=== PATIENT | female | born 1940 | race Caucasian/White ===

== ENCOUNTER 2021-08-21 21:34 | Emergency (ER) | payer MEDICARE, SELFPAY ==
--- NOTE | ~2021-08-21 | XR_ITS ---
EXAMINATION: XR KNEE, RIGHT CLINICAL INFORMATION: Atraumatic pain COMPARISON: None TECHNIQUE: Two views of the right knee. FINDINGS: Mild joint narrowing of the medial femoral tibial joint with small bone spur of the medial femoral condyle. No bone erosion. No soft tissue calcification. Patellofemoral joints normal. There is no joint effusion. No focal bone lesions. No fracture or dislocation. XR/XR knee RT 2V IMPRESSION: Mild degenerative change of the medial femoral tibial joint.
[2021-08-21 22:06] VITALS: BP 206/77; PULSE 84; RESP 18; TEMP 36.6; O2SAT 100; BMI 29.4
[2021-08-21 22:58] LABS: MANUAL DIFF FLAG NO
[2021-08-21 22:59] LABS: Basophils Absolute Auto 0.1 X10*3/uL (0.0-0.2); Basophils Percent Auto 0.7 % (0-2); Eosinophils Absolute Auto 0.3 X10*3/uL (0.0-0.4); Eosinophils Percent Auto 2.2 % (0-4); Hematocrit 36.6 % (37.0-47.0); Hemoglobin 11.9 g/dl (12.0-16.0); Imm Gran Abs Auto 0.03 X10*3/uL (0.00-0.03); Imm Gran Pct Auto 0.3 % (0.0-0.4); Lymphocytes Absolute Auto 2.4 X10*3/uL (1.2-4.9); Mean Corpuscular HGB Conc 32.5 g/dl (31.0-35.0); Mean Corpuscular Hemoglobin 29.7 pg (27.0-33.0); Mean Corpuscular Volume 91.3 fL (80.0-98.0); Mean Platelet Volume 9.9 fL (9.4-12.3); Monocytes Absolute Auto 0.9 X10*3/uL (0.1-1.2); Monocytes Percent Auto 7.9 % (2-11); Neutrophils Absolute Auto 8.2 x10*3/uL (2.0-8.3); Neutrophils Percent Auto 68.9 % (45-73); Platelet Count 277 X10*3/uL (160-400); Red Blood Count 4.01 X10*6/uL (4.20-5.50); Red Cell Distribution Width 14.3 % (11.0-16.0); White Blood Count 11.8 X10*3/uL (4.8-10.8)
[2021-08-21 23:07] LABS: D Dimer 286 NG/ML
[2021-08-21 23:13] LABS: Anion Gap 16 (12-20); Blood Urea Nitrogen 18 mg/dL (9-16); Calcium 9.1 mg/dL (8.4-10.2); Carbon Dioxide 23 mmol/L (22-29); Chloride 107 mmol/L (96-108); Creatinine Clr Calc Pharmacy 35.1; Estimated Glomerular Filt Rate 42; Glucose Random 142 mg/dL (60-115); Potassium 3.7 mmol/L (3.3-5.1); Sodium 142 mmol/L (135-145)
[2021-08-21 23:20] VITALS: BP 193/75; PULSE 84; RESP 15; O2SAT 99
--- NOTE | 2021-08-21 23:21 | ED_ITS ---
HPI - Extremity Problem General Chief complaint: Extremity Problem Stated complaint: rt leg unable to walk Time Seen by Provider: 08/21/21 22:30 Source: patient Mode of arrival: ambulatory Limitations: no limitations History of Present Illness HPI Narrative: Patient with no prior history of significant knee problems pain in the right leg from knee down unable to be bear weight no significant swelling of the ankles no risk factor for DVT, patient does not remember any twisting injury but patient was working all day today and was very active. Related Data Previous Rx's Medication Instructions Recorded tramadol 50 mg tablet 50 mg PO Q6H PRN #20 tab 08/22/21 walker (Ultra-Light Rollator) #1 ea 08/22/21 Allergies Allergy/AdvReac Type Severity Reaction Status Date / Time Penicillins AdvReac Hives Verified 08/21/21 22:15 terbinafine [From Lamisil] AdvReac Hives Verified 08/21/21 22:17 Review of Systems Review of Systems: Yes all other systems are reviewed and are negative PMFSH Past Medical History Medical History Diarrhea Hypertension Social History Social History Patient Tobacco Use Status: Never used Tobacco Use of substances other than those prescribed or required for medical reasons: No Advance Directives: No Advance Directives Information Provided: Yes Physical Exam Vital Signs: Vital Signs: Last Vital Signs Temp 97.8 F 08/21/21 22:06 Pulse 84 08/21/21 23:20 Resp 15 08/21/21 23:20 BP 193/75 H 08/21/21 23:20 Pulse Ox 99 08/21/21 23:20 Body Mass Index 29.4 Const: General: comfortable and no acute distress Orientation/consciousness: patient oriented x3 HENMT: Head: Yes normocephalic and Yes atraumatic Resp: Effort & Inspection: normal respiratory effort Auscultation: clear to auscultation bilaterally Cardio: Palpation: normal PMI Rate: regular rate Rhythm: regular rhythm Heart sounds: S1 normal heart sound present and S2 normal heart sound present GI: Inspection: Yes normal to inspection Palpation (GI): Soft to palpation and nontender : General: Yes no CVA tenderness Back/Spine/Pelvis: Back: no CVA tenderness Thoracic/Lumbar Spine: No thoracic spinal tenderness and No lumbar spinal tenderness Neuro: General: patient oriented x3 and no focal motor deficits Extrem: General: Yes full ROM, Yes no joint enlargement, Yes no pedal edema and Yes no calf tenderness Knee images: 1. Diffuse tenderness of the right knee no joint effusion macro any signs and anterior drawer sign negative slight popliteal fullness MDM - Extremity (Nontraumatic) MDM Narrative Medical decision making narrative: Patient with atraumatic right knee pain clinically low risk for DVT no calf tenderness homams sign is negative x-ray showed narrowing of medial femoral tibial space likely medial meniscal strain. Will apply knee immobilizer. Patient has slightly elevated D-dimer advised to get venous Doppler done tomorrow as outpatient Lab Data Attestation: I reviewed the patient's lab results. Result diagrams: 08/21/21 22:54 08/21/21 22:54 Labs: Lab Results 08/21/21 08/21/21 08/21/21 Range/Units 22:54 22:54 22:54 WBC 11.8 H (4.8-10.8) X10*3/uL RBC 4.01 L (4.20-5.50) X10*6/uL Hgb 11.9 L (12.0-16.0) g/dl Hct 36.6 L (37.0-47.0) % MCV 91.3 (80.0-98.0) fL MCH 29.7 (27.0-33.0) pg MCHC 32.5 (31.0-35.0) g/dl RDW 14.3 (11.0-16.0) % Plt Count 277 (160-400) X10*3/uL MPV 9.9 (9.4-12.3) fL Immature Gran % (Auto) 0.3 (0.0-0.4) % Neut % (Auto) 68.9 (45-73) % Lymph % (Auto) 20.0 (20-40) % [place] % (Auto) 7.9 (2-11) % Eos % (Auto) 2.2 (0-4) % Baso % (Auto) 0.7 (0-2) % Lymph # (Auto) 2.4 (1.2-4.9) X10*3/uL [place] # (Auto) 0.9 (0.1-1.2) X10*3/uL Eos # (Auto) 0.3 (0.0-0.4) X10*3/uL Baso # (Auto) 0.1 (0.0-0.2) X10*3/uL Abs Immat Gran (auto) 0.03 (0.00-0.03) X10*3/uL Absolute Neuts (auto) 8.2 (2.0-8.3) x10*3/uL Absolute Nucleated RBC 0.000 (0.0-0.012) X10*3/uL Nucleated RBC % (auto) 0.0 (0.0-0.2) /100WBC D-Dimer 286 NG/ML Sodium 142 (135-145) mmol/L Potassium 3.7 (3.3-5.1) mmol/L Chloride 107 (96-108) mmol/L Carbon Dioxide 23 (22-29) mmol/L Anion Gap 16 (12-20) BUN 18 H (9-16) mg/dL Creatinine 1.22 (0.5-1.4) mg/dL Estim Creat Clear Calc 35.1 Estimated GFR 42 Random Glucose 142 H (60-115) mg/dL Calcium 9.1 (8.4-10.2) mg/dL Discharge Plan Discharge Clinical Impression: Strain of knee Qualifiers: Encounter type: initial encounter Laterality: right Qualified Code(s): S86.911A - Strain of unspecified muscle(s) and tendon(s) at lower leg level, right leg, initial encounter Patient Disposition: Home, Self-Care Instructions: Knee Pain (ED) Additional Instructions: With knee immobilizer for support Use crutches/walker for ambulation Schedule for venous Doppler in the morning for ruling out blood clot in the leg as advised Pain medication as advised Follow with PCP for further evaluation including MRI of the right knee Prescriptions: New tramadol 50 mg tablet 50 mg PO Q6H PRN (Reason: pain) Qty: 20 RF: 0 (DME) Ultra-Light Rollator Misc See Rx Instructions .Route Qty: 1 RF: 0
[2021-08-21] MEDS: traMADoL HCL 50 MG TABLET PO (23:56)
== END 2021-08-22 01:07 | disposition home or self-care (01) ==
PROVIDERS: Emergency Provider Internal Medicine; PCP Internal Medicine
DX: S86.911A Strain of unspecified muscle(s) and tendon(s) at lower leg level, right leg, initial encounter (principal); X58.XXXA Exposure to other specified factors, initial encounter; M79.661 Pain in right lower leg; Y93.9 Activity, unspecified; Y92.9 Unspecified place or not applicable; Y99.9 Unspecified external cause status
CPT/HCPCS: 36415; 73560; 80048; 85025; 85379; 99284

== ENCOUNTER 2021-08-22 13:04 | Outpatient (REF) | payer MEDICARE, SELFPAY ==
--- NOTE | ~2021-08-22 | US_ITS ---
EXAMINATION: US VENOUS ULTRASOUND WITH DOPPLER LOWER EXTREMITY, RIGHT CLINICAL INFORMATION: Right leg pain COMPARISON: None TECHNIQUE: Ultrasound of the deep veins is performed from the hip to the calf with compression sonography and color and pulse Doppler assessment. Spectral analysis with color-flow imaging is performed. FINDINGS: There is normal venous compression and respiratory variation and augmented flow. The visualized common femoral vein, superficial femoral vein, profunda femoral vein, popliteal vein, and the trifurcation region shows no evidence of deep venous thrombosis. There is no significant popliteal fossa cyst. If the patient's symptoms persist, followup ultrasound in 5 days 7 days might be of value to exclude proximal propagation from a non-visualized calf vein. US/US venous duplex LE RT IMPRESSION: No DVT demonstrated in the right lower extremity.
== END 2021-08-22 13:05 | disposition home or self-care (01) ==
LOC: HO.US 13:04
PROVIDERS: PCP Internal Medicine; Visit Provider Internal Medicine
DX: M79.604 Pain in right leg (principal)
CPT/HCPCS: 36415; 73560; 80048; 85025; 85379; 93971; 99284

== ENCOUNTER 2023-06-04 13:00 | Outpatient (RCR) | payer MEDICARE, SELFPAY | END 2023-06-04 15:51 | disposition home or self-care (01) | LOC: HO.PT 13:00 | PROVIDERS: PCP Internal Medicine; Visit Provider Podiatrist | DX: R26.81 Unsteadiness on feet (principal); Z91.81 History of falling | CPT/HCPCS: 97110; 97112; 97162; 97530 ==

== ENCOUNTER 2023-08-10 09:33 | Emergency (ER) | payer MEDICARE, SELFPAY ==
--- NOTE | ~2023-08-10 | CT_ITS ---
EXAMINATION: CT angio head neck stroke CLINICAL INFORMATION: Stroke alert. Right-sided weakness. COMPARISON: CT head 08/10/2023. TECHNIQUE: Expanding Machine Operator images were obtained. A CT angiogram of the head and neck was performed in the arterial phase after the intravenous administration of 70 mL Omnipaque 350. Pre and delayed postcontrast images of the head were also obtained. 3D images were processed on an independent workstation under concurrent supervision. Arterial stenoses are measured in accordance with NASCET criteria or similar method if applicable. This CT examination was performed using dose optimization techniques as appropriate, including one or more of the following: Automated exposure control, iterative reconstruction, and adjustment of technique factors (mA and/or kVp) according to patient size (this includes techniques or standardized protocols for targeted exams where dose is matched to indication/reason for exam). Fleischner Society criteria for the followup of incidental pulmonary nodules was implemented if appropriate. Total exam dose-length product 1441 mGy-cm FINDINGS: Head: There is loss of mcclure-white matter differentiation within left parietal lobe consistent with an acute infarct. In addition this finding there are numerous foci of hypoattenuation primarily involving the perivertebral white matter, basal ganglia, and thalami that most likely represent a chronic manifestation of small vessel ischemia. No acute hemorrhage or abnormal extra-axial collection. Postcontrast images reveal no abnormal intracranial mass or enhancement. The calvarium and skull base are intact. Mastoid air cells and middle ear cavities are well-aerated. No active paranasal sinus disease. CT angiogram neck: The aortic arch apex is normal. Origins of the major aortic branches are widely patent. Common carotid arteries are normal. A small amount of partially calcified plaque involves the carotid bifurcations. No stenosis of the extracranial internal carotid arteries. 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 The cervical segments of vertebral arteries are otherwise unremarkable. CT angiogram head: Atheromatous calcification causes mild irregular narrowing of the cavernous segments of both internal carotid arteries. The intradural vertebral artery segments and basilar artery are patent. There is an occlusive thrombus within the M1 segment of left middle cerebral artery and relatively poor contrast filling the distal branches of left middle cerebral artery complex. Anterior, middle, and posterior cerebral complexes are otherwise unremarkable. Other: Soft tissues of the neck including the thyroid gland are normal. No pathologically enlarged cervical lymph nodes. Pleural parenchymal scarring is visualized at the apices of both lungs. No acute osseous finding. Specifically no worrisome lytic or blastic osseous lesion. CT/CT angio head neck stroke IMPRESSION: There is an occlusive thrombus within the M1 segment of the left middle cerebral artery and early changes of an acute infarct within the left parietal lobe. In addition this finding there are numerous chronic small vessel ischemic changes within the periventricular white matter, basal ganglia, and thalami. No acute intracranial hemorrhage. No abnormal intracranial mass or enhancement. 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 No stenosis of the cervical carotid or vertebral arteries. This critical result was discussed with Mayur Maradiaga at 10:41 AM on 08/10/2023 and it was ascertained that the content and urgency of the report was understood at the time of direct communication.
--- NOTE | ~2023-08-10 | CT_ITS ---
EXAMINATION: CT HEAD WITHOUT CONTRAST (STROKE PROTOCOL) CLINICAL INFORMATION: Stroke protocol. Right-sided weakness COMPARISON: None available. TECHNIQUE: Contiguous axial imaging was performed from the skull base to vertex without intravenous administration of contrast. This CT examination was performed using dose optimization techniques as appropriate, variously including the following: *Automated exposure control *Adjustment of mA and/or kV according to patient size (this includes techniques or standardized protocols for targeted exams where dose is matched to indication/reason for exam; i.e. extremities or head) *Use of iterative reconstruction technique DLP: 688 mGy-cm FINDINGS: The exam is limited secondary to patient motion. There is no acute intra-axial, extra-axial bleed, masses or midline shift. There is no acute infarction in evolution. There is a hypodensity in the left frontoparietal region with a prominent central sulcus likely old stroke or infarction. There is no edema. The lateral ventricles are symmetrical but enlarged with mild periventricular hypodensity in both cerebral hemispheres, likely small vessel disease.. Bone windows reveal no calvarial abnormality. No scalp soft tissue abnormality seen. There is a small polyp or retention cyst left maxillary and right sphenoid sinus. CT/CT head for stroke IMPRESSION: The exam is limited secondary to patient motion. No acute intracranial process seen. Prominent left central sulcus with adjacent hypodensity along the left frontoparietal region likely old infarction. There are no previous exam available. Mild cerebral volume loss with chronic small vessel ischemic changes in the periventricular white matter. Critical results were immediately called to Dr. Nicholas Maradiaga in the ER at 9:57 AM. It was ascertained that the content and urgency of the report was understood at the time of direct communication.
--- NOTE | 2023-08-10 09:38 | ECG_ITS ---
Test Reason : STROKE Blood Pressure : / mmHG Vent. Rate : 062 BPM Atrial Rate : 000 BPM P-R Int : 000 ms QRS Dur : 092 ms QT Int : 456 ms P-R-T Axes : 000 036 065 degrees QTc Int : 462 ms Atrial fibrillation Nonspecific T wave abnormality Abnormal ECG No previous ECGs available Referred By: Nicholas Maradiaga Electronically Signed By:DEVON CHAMBERLAIN MD
--- NOTE | 2023-08-10 09:42 | ED_ITS ---
HPI - Weakness General Chief complaint: Stroke Stated complaint: STROKE ALERT Time Seen by Provider: 08/10/23 09:38 Source: patient and EMS Mode of arrival: EMS Limitations: other (dysarthria) History of Present Illness HPI Narrative: Patient found with decreased responsiveness on the toilet, right sided weakness and dysarthria 90 minutes ago Complaint: focal weakness Onset (ago): minute(s) (90) Duration: constant Location: RUE, RLE and face (right) Severity: severe Related Data Previous Rx's Medication Instructions Recorded tramadol 50 mg tablet 50 mg PO Q6H PRN pain #20 tabs 08/22/21 walker (Ultra-Light Rollator misc) #1 ea 08/22/21 Allergies Allergy/AdvReac Type Severity Reaction Status Date / Time Penicillins AdvReac Hives Verified 08/21/21 22:15 terbinafine [From Lamisil] AdvReac Hives Verified 08/21/21 22:17 Review of Systems 2 Review of Systems: Yes Unobtainable due to mental status [facility] Past Medical History Medical History Diarrhea Hypertension Social History Social History Alcohol intake: current Alcohol intake frequency: holidays/special occasions only Patient Tobacco Use Status: Never used Tobacco Smoked in Last 30 Days: No Use of substances other than those prescribed or required for medical reasons: No Advance Directives: No Advance Directives Information Provided: Yes Physical Exam 2 Vital Signs: Vital Signs: Last Vital Signs Pulse 63 08/10/23 10:31 Resp 18 08/10/23 10:31 BP 158/68 H 08/10/23 10:31 Pulse Ox 98 08/10/23 10:31 O2 Del Method Room Air 08/10/23 10:31 BMI result Body Mass Index 25.6 Const: Other: Ill appearing right sided weakness Nutritional Appearance: obese Orientation/consciousness: oriented to person and patient oriented x3 Limitations: other limitations (dysarthria) HEENT: Head: Yes normal to inspection Ears: external ears normal General nose exam: Normal external nose present Mouth: Normal oral and palatal mucosa present and oropharynx normal Throat: Yes posterior oropharynx normal Eyes: General: appearance normal, both eyes and all related structures Neck: Other: supple Neck: Yes normal visual inspection Chest: Chest palpation & inspection: normal inspection of the chest Resp: Auscultation: clear to auscultation bilaterally Cardio: Jugular venous distension: no JVD GI: Inspection: Yes normal to inspection Palpation (GI): Soft to palpation, nontender and No hepatosplenomegaly present Auscultation: normal bowel sounds : General: Yes no CVA tenderness Back/Spine/Pelvis: Back: no CVA tenderness Skin: General skin exam: no rashes or lesions noted Neuro: Other: right facial, right arm, right leg weakness General: oriented to person and patient oriented x3 Extrem: General: Yes normal to inspection Psych: Appearance: grossly normal NIH Stroke Scale Internal: Initial- Upon Arrival Level of Consciousness: Alert Level of Consciousness Questions: Answers both questions correctly Level of Consciousness Commands: Performs both tasks correctly Best Gaze: Partial gaze palsy (to the left) Facial Palsy: Partial paralysis Motor Arm (Right): No effort against gravity Motor Leg (Right): No effort against gravity Limb Ataxia: Absent Sensory: Normal Best Language: No aphasia Dysarthia: Severe dysarthria Extinction and Inattention: Visual, tactile, auditory, spatial, or personal inattention Course Reevaluation(s) Reevaluation #1: NIH stroke scale 15 Time: 09:53 Reevaluation #2: discussed risk and benefits of tpa at the bedside with both jerman Time: 10:15 Reevaluation #3: Large clot at M1 of left MCA Time: 10:45 Additional Reevaluation(s): I spent 60 minutes of critical care, with interventions, assessments, speaking to patient, consultants, and family. Medications Administered Discontinued Medications Generic Name Dose Route Start Last Admin Trade Name Freq PRN Reason Stop Dose Admin Iohexol 70 ml 08/10/23 10:16 08/10/23 10:16 Iohexol 350 Mg/Ml 100 Ml Infus..Btl IV 08/10/23 10:17 70 ml ONCE ONE Administration Medical Decision Making Differential Diagnosis Differential Diagnoses: The differential diagnosis associated with the presentation includes (stroke, cerebral bleed, brain mass) Admission/Observation Consideration of admission/observation: Escalation of care including admission/observation considered (upon arrival patient considered for admission) Consult Healthcare Provider Management of the patient was discussed with: [employer] Director (stroke team) Lab Data 08/10/23 10:20 08/10/23 10:20 Labs: Lab Results 08/10/23 08/10/23 Range/Units 09:48 10:20 WBC 9.1 (4.8-10.8) X10*3/uL RBC 4.23 (4.20-5.50) X10*6/uL Hgb 13.1 (12.0-16.0) g/dl Hct 39.3 (37.0-47.0) % MCV 92.9 (80.0-98.0) fL MCH 31.0 (27.0-33.0) pg MCHC 33.3 (31.0-35.0) g/dl RDW 13.1 (11.0-16.0) % Plt Count 256 (160-400) X10*3/uL MPV 9.9 (9.4-12.3) fL Immature Gran % (Auto) 0.2 (0.0-0.4) % Neut % (Auto) 66.4 (45-73) % Lymph % (Auto) 22.9 (20-40) % [place] % (Auto) 6.4 (2-11) % Eos % (Auto) 3.3 (0-4) % Baso % (Auto) 0.8 (0-2) % Lymph # (Auto) 2.1 (1.2-4.9) X10*3/uL [place] # (Auto) 0.6 (0.1-1.2) X10*3/uL Eos # (Auto) 0.3 (0.0-0.4) X10*3/uL Baso # (Auto) 0.1 (0.0-0.2) X10*3/uL Abs Immat Gran (auto) 0.02 (0.00-0.03) X10*3/uL Absolute Neuts (auto) 6.1 (2.0-8.3) x10*3/uL Absolute Nucleated RBC 0.000 (0.0-0.012) X10*3/uL Nucleated RBC % (auto) 0.0 (0.0-0.2) /100WBC Hold Purple Top SEE NOTE PT 11.2 (11.1-13.3) SEC Whole Blood PT 12.7 (11.1-13.5) sec INR 0.9 (0.9-1.1) Whole Blood INR 1.1 (0.9-1.1) APTT 28.3 (26.0-36.4) SEC Hold Blue Top SEE NOTE Sodium 141 (135-145) mmol/L Potassium 3.5 (3.3-5.1) mmol/L Chloride 109 H (96-108) mmol/L Carbon Dioxide 22 (22-29) mmol/L Anion Gap 14 (12-20) BUN 17 H (9-16) mg/dL Creatinine 0.78 (0.5-1.4) mg/dL Estim Creat Clear Calc 56.0 Estimated GFR > 60 POC Glucose 113 (60-115) mg/dL Random Glucose 118 H (60-115) mg/dL Calcium 9.4 (8.4-10.2) mg/dL Total Creatine Kinase 41 (26-140) U/L Troponin I High Sens < 2.7 (<3.5-17.0) ng/L Independent Interpretation I performed an independent interpretation of an: EKG (atrial fib rate of [address] or twave changes) and CT Scan (no bleed or mass seen) Radiology Impression Discussion of test interpretation with radiology: I have reviewed the radiologist's reading. (there is a large clot of the left MCA) Independent Historian Clinical information obtained from an independent historian. History obtained from or confirmed by: Other (sons) Tests considered The following testing was considered but not selected: MRI of brain considered Chronic Conditions Patient?s care impacted by: Hypertension Discharge Plan Discharge Clinical Impression: Cerebrovascular accident Patient Disposition: [facility] Transfer Details: [facility] Prescriptions: No Action tramadol 50 mg tablet 50 mg PO Q6H PRN (Reason: pain) Qty: 20 0RF (DME) Ultra-Light Rollator Misc See Rx Instructions .Route Qty: 1 0RF Rx Instructions: As directed
[2023-08-10 09:51] LABS: Prothrombin Time Whole Bld POC 12.7 sec (11.1-13.5); ~PT, ~INR - Anti Coag Clinic 1.1 (0.9-1.1)
[2023-08-10 09:52] LABS: Glucose, Whole Blood 113 mg/dL (60-115)
[2023-08-10 09:58] VITALS: BP 142/57; PULSE 76; RESP 20; O2SAT 100; BMI 25.6
[2023-08-10] MEDS: iohexoL 350 MG/ML 100 ML INFUS..BTL 70 ML IV (10:16)
--- NOTE | 2023-08-10 10:23 | PC.NURSE ---
pt BIBA from home with R sided weakness, facial droop and left sided gaze. last known well was approx 8:05 this morning when pt was found unresponsive in her bathroom by her . pt incontinent of urine. EMS reported new A.fib - unknown if this information was determined en rout or a new diagnosis prior to todays events. pt weight at 76.3 kg by bed weight in ER. bolus of 6.9 mL Alteplase administered via 20G in L wrist at 10:14. waste dose 31.2 mL infusion started at 10:22 dose of 61.9 mL/hr. second IV line established in the R forearm, 20G. blood sent to lab. pts sons at bedside.
[2023-08-10 10:27] LABS: Basophils Absolute Auto 0.1 X10*3/uL (0.0-0.2); Basophils Percent Auto 0.8 % (0-2); Eosinophils Absolute Auto 0.3 X10*3/uL (0.0-0.4); Eosinophils Percent Auto 3.3 % (0-4); Hematocrit 39.3 % (37.0-47.0); Hemoglobin 13.1 g/dl (12.0-16.0); Imm Gran Abs Auto 0.02 X10*3/uL (0.00-0.03); Imm Gran Pct Auto 0.2 % (0.0-0.4); Lymphocytes Absolute Auto 2.1 X10*3/uL (1.2-4.9); Lymphocytes Percent Auto 22.9 % (20-40); MANUAL DIFF FLAG NO; Mean Corpuscular HGB Conc 33.3 g/dl (31.0-35.0); Mean Corpuscular Volume 92.9 fL (80.0-98.0); Mean Platelet Volume 9.9 fL (9.4-12.3); Monocytes Absolute Auto 0.6 X10*3/uL (0.1-1.2); Monocytes Percent Auto 6.4 % (2-11); Neutrophils Absolute Auto 6.1 x10*3/uL (2.0-8.3); Neutrophils Percent Auto 66.4 % (45-73); Platelet Count 256 X10*3/uL (160-400); Red Blood Count 4.23 X10*6/uL (4.20-5.50); Red Cell Distribution Width 13.1 % (11.0-16.0); White Blood Count 9.1 X10*3/uL (4.8-10.8)
[2023-08-10 10:31] VITALS: BP 158/68; PULSE 63; RESP 18; O2SAT 98
[2023-08-10 10:35] LABS: INTERNATIONAL NORM RATIO 0.9 (0.9-1.1); Prothrombin Time 11.2 SEC (11.1-13.3)
[2023-08-10 10:37] LABS: Partial Thromboplastin Time 28.3 SEC (26.0-36.4)
[2023-08-10 10:38] LABS: Stroke Lab Use COMPLETE
[2023-08-10 10:40] LABS: Anion Gap 14 (12-20); Blood Urea Nitrogen 17 mg/dL (9-16); Calcium 9.4 mg/dL (8.4-10.2); Carbon Dioxide 22 mmol/L (22-29); Chloride 109 mmol/L (96-108); Estimated Glomerular Filt Rate > 60; Glucose Random 118 mg/dL (60-115); Potassium 3.5 mmol/L (3.3-5.1); Sodium 141 mmol/L (135-145)
[2023-08-10 10:50] LABS: Troponin-I High Sensitivity < 2.7 ng/L (<3.5-17.0)
[2023-08-10 10:56] VITALS: BP 144/73; PULSE 70; RESP 14; O2SAT 96
--- NOTE | 2023-08-10 11:09 | PC.NURSE ---
son Lloyd son Jacob Capo
[2023-08-10 11:10] VITALS: BP 137/68; PULSE 73; RESP 17; O2SAT 97
--- NOTE | 2023-08-10 11:10 | MHC.STROKE ---
EMS PRE-NOTIFIED STROKE ALERT 0930, LKW 0800 - 0820. [place] [facility] [place] SEEN BY PROVIDER NIHSS = 15, RIGHT HEMIPARESIS, GAZE, DROOP, DIRECT TO [facility] AND [facility]. CLARIFYING LKW WITH SON WHO LIVES WITH HER. SHE GOT UP SEVERAL TIMES DURING THE NIGHT TO GO TO THE BATHROOM, HE SPOKE TO HER AROUND 0200. SHE MANAGED TO GET UP TO THE BATHROOM AROUND 0800 AND HE FOUND HER ON THE TOILET 0820, SLOW TO RESPOND AND NOT MOVING HER RIGHT SIDE. HE CALLED 911. BP 142/57, NEW AFIB, HE 76, NO BLEED ON CT, TPA ORDERED 68.67MG, 6.7MG BOLUS GIVEN AT 1014 BY VALERIE LUNDBERG, WITNESSED BY ME. DRIP STARTED 1015. AFTER 10-20 MINUTES SLIGHTLY IMPROVING CTA RESULTS CAME BACK LEFT M1 OCCLUSION. DR ANTHONY DISCUSSED CASE WITH DR ATWOOD AT [facility]. PATIENT ACCEPTED. FILMS SENT VIA [facility]. FAILED SWALLOW SCREEN, NPO. STROKE EDUCATION PROVIDED TO FAMILY AND INFORMED EACH STEP ALONG THE WAY. THEY CONSENT TO TRANSFER TO [facility]. I EXPLAINED THE PROCESS AND WHAT THE NEXT STEP IS. THERE IS A QUESTION IF SHE HAD A NEW DIAGNSIS OF AFIB, BUT NOT ON ANY ANTICOAGULANTS. SHE IS VERY ACTIVE. STILL DRIVES, GOES TO [facility], LIVES WITH HER AND SON. HER AND HER SLEEP IN DIFFERENT ROOMS THEREFORE HE COULD NOT HELP WITH LKW. DELAY IN TPA GREATER THAN 30MIN DUE TO THE NEED FOR CLARIFICATION OF ONSET TIME. CT READING 0957, CTA READING 1041. PREPARING FOR TRANSFER, VITALS STABLE. REPORT GIVEN TO EMT'S, DIRECT TO TAXATION ACCOUNTANT FOR THROMBECTOMY. DEPARTED AT 1129. [id number] 116MIN.
[2023-08-10 11:15] VITALS: BP 131/68; PULSE 72; RESP 17; O2SAT 97
--- NOTE | 2023-08-10 11:35 | PC.NURSE ---
pt D/c via [facility] at 11:32 AM en route to [facility]
== END 2023-08-10 11:29 | disposition short-term general hospital (02) ==
PROVIDERS: Emergency Provider Emergency Medicine
DX: I63.312 Cerebral infarction due to thrombosis of left middle cerebral artery (principal); R47.01 Aphasia; R47.1 Dysarthria and anarthria; G81.91 Hemiplegia, unspecified affecting right dominant side; R29.810 Facial weakness; H53.8 Other visual disturbances; R29.715 NIHSS score 15; I10 Essential (primary) hypertension
CPT/HCPCS: 36415; 37195; 70450; 70496; 70498; 80048; 82550; 82947; 84484; 85025; 85610; 85730; 93005; 99284; 99285; J2997; Q9967

== ENCOUNTER 2023-10-01 08:26 | Outpatient (AMB) | payer MEDICARE, SELFPAY ==
--- NOTE | 2023-10-01 08:33 | A.OFFVIS_ITS ---
Intake Vital Signs 10/01/23 08:40 Weight 158 lb Pulse 77 Pulse Source Pulse Oximeter Pulse Oximetry (%) 99 Oxygen Delivery Method Room Air Intake Visit Reasons: [id number] Intake Note: Patient presents for CVA. I dont know they sent me here Allergies codeine Allergy (Unknown, Verified 10/01/23 08:41) rash Penicillins Adverse Reaction (Verified 10/01/23 08:41) Hives terbinafine [From Lamisil] Adverse Reaction (Verified 10/01/23 08:41) Hives HPI HPI Comments History of Present Illness Details Left-handed 83-yr-old female presents for neurological evaluation of: post-CVA. Pt is accompanied by her son, who helps w/ history. In late Jul 2023, pt was diagnosed with a large acute ischemic left MCA in farction after pt was found by family w/ facial droop,?right sided weakness, dysarthria, left gaze after being found on toilet?with decreased responsiveness. Pt was brought to [facility] ER. Per [facility] records, pt underwent TPA and subsequently was taken for thrombectomy that was unfortunately unsuccessful and complicated by distal cervical ICA dissection without hemodynamically significant stenosis. She was extubated on 08/11/2023 . Pt also dx'd w/ new onset?atrial fibrillation w/ CHADVASc 6 w/ planto start Eliquis and metoprolol for afib?10 days post stroke (on 08/20/23). Pt was discharged to rehab w/ residual right sided weakness requiring w/c for mobility. She completed 2 weeks of in-pt rehab at [facility], then was discharged home w/ TENANT [employer]ATIONS COORDINATOR (both VNA and private), NSG, PT, OT, [employer] Her baseline is Ind w/o device. Lives at home with her and other son, Daljit (who is a retired trauma nurse). [facility]. She is still having right-sided weakness. She needs assist w/ ADLs - dressing, showers, and meal prep. She is having some cognitive difficulties- such as following sequences, certain math problems. She still has some mild dysarthria. She is having some urinary and bowel incontinence- ? unaware vs functional. She is now able to walk w/ walker, but has difficulty getting up from a softer surface- such as a bed or sofa. She denies dysphagia, vision changes, numbness/tingling, Right sided spasms, spasticity. Work-up: 08/11/23, Head Ct w/o: IMPRESSION: Acute LEFT MCA vascular territory infarct without evidence of hemorrhagic transformation. 08/11/23, Echocardiogram: Summary The left ventricular size is normal. Left ventricular wall thickness is normal. The LV systolic function is normal . The left ventricular ejection fraction is 60-65 %. There are no regional wall motion abnormalities. Right ventricular size and systolic function appear grossly normal. The left atrium is mildly dilated. No significant valve dysfunction. Normal CVP estimate. There is no evidence of pulmonary hypertension. 08/13/23, Brain MRI w/o IMPRESSION: Large acute left MCA infarct as described above, similar to that seen on the prior CT. No associated hemorrhage. There is no hydrocephalus or midline shift. 08/11/23 04:24 Cholesterol 222 H Triglycerides 144 HDL Cholesterol 61 LDL Cholesterol 132 H Non HDL Cholestero l 161 H PFSH Medical History (Updated 10/10/23 @ 22:01 by PAIGE Glass) History of malignant melanoma History of basal cell carcinoma History of dysplastic nevus Degenerative joint disease (DJD) of hip Low back pain radiating to left lower extremity History of squamous cell carcinoma Venous insufficiency (chronic) (peripheral) Diarrhea Hypertension Surgical History (Updated 10/01/23 @ 08:48 by JERICHO Tilley) H/O breast biopsy Hx of colonoscopy Hx of cholecystectomy Hx of appendectomy Family History (Updated 10/01/23 @ 08:42 by JERICHO Tilley) Father Throat cancer Mother Kidney failure Social History (Updated 10/01/23 @ 08:43 by JERICHO Tilley) Alcohol intake: current Alcohol intake frequency: holidays/special occasions only Patient Tobacco Use Status: Never used Tobacco Physical Exam Vital Signs: Last Vital Signs Pulse 77 10/01/23 08:40 Pulse Ox 99 10/01/23 08:40 Oxygen Delivery Method Room Air 10/01/23 08:40 Const General: cooperative and no acute distress Orientation/consciousness: patient oriented x3 HEENT Head: Yes normocephalic Eyes Pupils: Equal, round and reactive pupils present Resp Effort & Inspection: normal respiratory effort and able to speak in complete sentences Neuro Other: A&O w/ mild STM lapses Very mild dysarthria Very mild RUE tone RUE MS 4/4 LUE and BLE- MS 5/5 Pronator drift- positive in RUE Stands slwoly, steady gait w/ walker General: patient oriented x3 and deep tendon reflexes 2+ bilaterally Cranial nerves: Yes Facial sensation intact/muscles of mastication intact, Yes Equal, round and reactive pupils present, Yes Normal accommodation reflex present, Yes Bilaterally intact EOM present, Yes Normal facial strength present, Yes Ability to bilaterally rotate head present and Yes Individual cranial nerve findings present (lower facial weakness) VII: abnormal, IX: abnormal (asymmetric palate elevation) and X: abnormal (asymmetric palate elevation) Deep tendon reflexes (DTR's): Right triceps reflex intensity grade: 2+, Left triceps reflex intensity grade: 2+, Rt Biceps (C5, C6): 2+, Left biceps reflex intensity grade: 2+, Right brachioradialis reflex intensity grade: 2+, Left brachioradialis reflex intensity grade: 2+, Right patellar reflex intensity grade: 2+ and Left patellar reflex intensity grade: 2+ Psych Appearance: grossly normal Affect: normal affect Attitude: cooperative Assessment & Plan Assessment & Plan (1) History of ischemic left MCA stroke: Comment: 08/10/23 Code(s): Z86.73 - Personal history of transient ischemic attack (TIA), and cerebral infarction without residual deficits (2) Right hemiparesis: Code(s): G81.91 - Hemiplegia, unspecified affecting right dominant side (3) Atrial fibrillation: Code(s): I48.91 - Unspecified atrial fibrillation (4) HLD (hyperlipidemia): Code(s): E78.5 - Hyperlipidemia, unspecified (5) Dysarthria: Code(s): R47.1 - Dysarthria and anarthria Plan Pt advised to undergo 7 day holter monitor Pt advised to undergo brain MRI w/o to assess status resolution/sttaus of left MCA ischemic infarct. Continue optimized CV risk reduction strategies- ASA, Eliquis, statin, amlodipine, losartan. Continue home services, [employer]NA[employer]ATIONS [employer]ATOR. For incontinence- Trial scheduled toileting q 2.5-3 hrs. [facility]. Future considerations: sleep study. Coding Level of Care Code New Pt Level 4 (96792) Diagnoses History of ischemic left MCA stroke Z86.73 Right hemiparesis G81.91 Atrial fibrillation I48.91 HLD (hyperlipidemia) E78.5 Dysarthria R47.1
[2023-10-01 08:40] VITALS: PULSE 77; O2SAT 99
== END 2023-10-01 09:52 | disposition home or self-care (01) ==
PROVIDERS: Visit Provider Nurse Practitioner Family
DX: I69.351 Hemiplegia and hemiparesis following cerebral infarction affecting right dominant side (principal); I48.91 Unspecified atrial fibrillation; E78.5 Hyperlipidemia, unspecified; R47.1 Dysarthria and anarthria
CPT/HCPCS: 99204

== ENCOUNTER → 2023-10-01 08:26 | Outpatient (BNVA) | payer MEDICARE, SELFPAY | PROVIDERS: Visit Provider Nurse Practitioner Family | DX: G81.91 Hemiplegia, unspecified affecting right dominant side (principal); I48.91 Unspecified atrial fibrillation; E78.5 Hyperlipidemia, unspecified; R47.1 Dysarthria and anarthria; Z86.73 Personal history of transient ischemic attack (TIA), and cerebral infarction without residual deficits | CPT/HCPCS: 99202 ==

== ENCOUNTER 2023-10-21 19:15 | Inpatient (IN) | payer MEDICARE, SELFPAY ==
[2023-10-21 19:45] VITALS: BP 189/72; PULSE 90; RESP 16; TEMP 36.3; O2SAT 97; BMI 26.4
--- NOTE | 2023-10-21 19:50 | ED.GENADULT ---
HPI - General Adult General Chief complaint: Recheck/Abnormal Lab/Rx Stated complaint: needs a potassium bag per doctor? Time Seen by Provider: 10/21/23 20:36 Source: patient, family and old records reviewed Mode of arrival: ambulatory Limitations: no limitations History of Present Illness HPI narrative: 83 yo female with PMH of dysarthria, HLD, HTN, PAF on eliquis, MCA stroke - residual R sided weakness/dysarthria who comes from home. She has had 4 loose stools a day not on diuretics. She was sent by the PCP for low K and magnesium. She notes no abdominal pain, n/v or fevers. Family tried immodium no relief. She is eating normally. She has not had this before. No travel no antibiotic use MD complaint: low k and magnesium Onset (ago): day(s) (several days agy) Location: abdomen Radiation: non-radiation Severity: mild Relieving factors: none Exacerbating factors: eating Associated symptoms: denies other symptoms Treatments prior to arrival: none Related Data Home Medications Medication Instructions Recorded Confirmed amlodipine 5 mg tablet 5 mg PO DAILY 10/01/23 10/22/23 atorvastatin 80 mg tablet 80 mg PO BEDTIME 10/01/23 10/22/23 clotrimazole 1 % topical cream 1 appl topical BID PRN Rash 10/01/23 10/22/23 hydrocortisone 2.5 % topical cream 1 appl topical BID PRN Rash 10/01/23 10/22/23 losartan 50 mg tablet 50 mg PO DAILY 10/01/23 10/22/23 [id number]-[id number]-eefpbg tablet 1 tab PO DAILY 10/01/23 10/22/23 pantoprazole 40 mg tablet,delayed 40 mg PO DAILY@0630 10/01/23 10/22/23 release trazodone 50 mg tablet 50 mg PO BEDTIME 10/01/23 10/22/23 apixaban 5 mg tablet (Eliquis) 5 mg PO BID 10/10/23 10/22/23 melatonin 3 mg tablet 6 mg PO BEDTIME PRN Sleep 10/10/23 10/22/23 metoprolol tartrate 50 mg tablet 25 mg PO BID 10/21/23 10/22/23 nystatin 100,000 unit/gram topical 1 appl topical TID PRN Rash 10/21/23 10/22/23 powder Previous Rx's Medication Instructions Recorded walker (Ultra-Light Rollator misc) #1 ea 08/22/21 Allergies Allergy/AdvReac Type Severity Reaction Status Date / Time codeine Allergy Unknown rash Verified 10/01/23 08:41 Penicillins AdvReac Hives Verified 10/01/23 08:41 terbinafine [From Lamisil] AdvReac Hives Verified 10/01/23 08:41 Review of Systems Review of Systems: Constitutional : No Weight loss, No Fever, No Chills ENT/Mouth : No sore throat, No Rhinorrhea Eyes: No Swelling, No Redness Cardiovascular : No Chest Pain, No SOB, NoEdema Respiratory : No Cough, No Sputum, No Wheezing Gastrointestinal : no Nausea, no Vomiting, positive Diarrhea, no abdominal Pain, No Hematochezia, No Melena Genitourinary : No Dysuria, No Urinary Frequency, No Hematuria, No Urgency Musculoskeletal : No joint pain, No Myalgias, No Joint Swelling Skin : No Skin Lesions, No rash Neuro : No Weakness, No Numbness, No Dizziness, No Headache Psych : No Anxiety/Panic, No Depression All other systems reviewed and are negative. [facility] Past Medical History Attestation statement: The following information was validated with the patient. Source: old records reviewed Onset Date is defined in the Problem List Problems that require an onset date and time if occurred within 24 hrs of arrival to the ED Aortic Dissection and Rupture; Neurologic impairment; Cardiopulmonary Arrest; Endotracheal Intubation; Insertion or Replacement of Mechanical Circulatory Assist Device Medical History History of malignant melanoma History of basal cell carcinoma History of dysplastic nevus Degenerative joint disease (DJD) of hip Low back pain radiating to left lower extremity History of squamous cell carcinoma Venous insufficiency (chronic) (peripheral) Diarrhea Hypertension Surgical History H/O breast biopsy Hx of colonoscopy Hx of cholecystectomy Hx of appendectomy Family History Family History Father Throat cancer Mother Kidney failure Social History Social History Alcohol intake: current Alcohol intake frequency: holidays/special occasions only Alcohol type: wine Patient Tobacco Use Status: Never used Tobacco Smoked in Last 30 Days: No Use of substances other than those prescribed or required for medical reasons: No Advance Directives: No Advance Directives Information Provided: No Nutrition Risks: No Nutritional Risk Physical Exam ED Vital Signs: Vital Signs - 24 hr 10/21/23 19:45 10/21/23 20:39 Temperature 97.4 F 97.5 F Pulse Rate 90 93 Respiratory Rate 16 19 Blood Pressure 189/72 H 165/78 H Pulse Oximetry 97 98 Oxygen Delivery Method Room Air Room Air BMI result Body Mass Index 26.4 Appearance: Alert. Oriented at baseline. No acute distress. Eyes: Pupils equal, round and reactive to light. ENT: Pharynx normal. Neck: Normal inspection. Neck supple. CVS: Normal heart rate and rhythm. Pulses normal. Respiratory: No respiratory distress. Breath sounds normal. Abdomen: Soft and nontender. Skin: Skin warm and dry. Normal skin color. Normal skin turgor. Extremities: No lower extremity edema. Neuro: Oriented at baseline, R sided hemiparesis. No sensory deficit. Course Course Course Narrative: RME; 83 yold female presents to the ED for hypomagnesemia and hypokalemia. labs results were informed to patient by [facility]. Patient has been having constant diarrhea without any abdominal pain. Labs ordered Reevaluation(s) Reevaluation #1: signed out to Dr. Flores pending CT scan but anticipate admission Medications Administered Generic Name Dose Route Start Last Admin Trade Name Freq PRN Reason Stop Dose Admin Acetaminophen 650 mg 10/21/23 23:01 10/22/23 00:07 Acetaminophen 325 Mg Tablet PO 650 mg Q6H PRN Administration Pain, Mild (Pain Scale 1-3) Apixaban 5 mg 10/22/23 09:00 10/22/23 08:38 Apixaban 5 Mg Tablet PO 5 mg BID MILI Administration Potassium Chloride/Dextrose/Sod Cl 10 meq in 1,000 mls @ 125 mls/hr 10/22/23 08:15 10/22/23 09:02 Kcl 10 Meq In 5% Dex/0.45% Sod IVCONT 125 mls/hr .Q8H MILI Administration Metoprolol Tartrate 25 mg 10/22/23 09:00 10/22/23 08:37 Metoprolol Tartrate 25 Mg Tablet PO 25 mg BID MILI Administration Protocol Multivitamins/Vitamin C 1 tab 10/22/23 09:00 10/22/23 08:38 Multivitamin Tablet PO 1 tab DAILY MILI Administration Sodium Chloride 3 ml 10/22/23 00:00 10/22/23 07:57 0.9 % Sodium Chloride Flush 3 Ml Syringe IVFLUSH Not Given QSHIFT MILI Discontinued Medications Generic Name Dose Route Start Last Admin Trade Name Freq PRN Reason Stop Dose Admin Magnesium Sulfate 2 gm in 50 mls @ 25 mls/hr 10/21/23 20:36 10/21/23 23:35 Magnesium Sulfate/H2o IV 10/21/23 22:35 Infused ONCE ONE Infusion Potassium Chloride 10 meq in 100 mls @ 100 mls/hr 10/21/23 20:45 10/22/23 08:34 Potassium Chloride/H20 IV 10/22/23 00:44 Infused Q1H MILI Infusion Sodium Chloride 1,000 mls @ 100 mls/hr 10/21/23 20:45 10/22/23 08:30 Ns IVCONT Infused .Q10H MILI Infusion Potassium Chloride 10 meq in 100 mls @ 50 mls/hr 10/22/23 04:45 10/22/23 09:05 Potassium Chloride/H20 IV 10/22/23 06:44 Infused ONCE ONE Infusion Iohexol 85 ml 10/21/23 21:54 10/21/23 21:55 Iohexol 350 Mg/Ml 100 Ml Infus..Btl IV 10/21/23 21:55 85 ml ONCE ONE Administration Potassium Chloride 40 meq 10/21/23 20:36 10/21/23 21:23 Potassium Chloride Packet 20 Meq Packet PO 10/21/23 20:37 40 meq ONCE ONE Administration Potassium Chloride 40 meq 10/21/23 23:13 10/22/23 00:00 Potassium Chloride Er 20 Meq Tab.Er.Prt PO 10/21/23 23:14 40 meq ONCE ONE Administration Potassium Chloride 40 meq 10/22/23 08:11 10/22/23 08:38 Potassium Chloride Packet 20 Meq Packet PO 10/22/23 08:12 40 meq ONCE ONE Administration Medical Decision Making Medical Decision Making MDM Narrative: 83 yo female with PMH of dysarthria, HLD, HTN, PAF on eliquis, MCA stroke - residual R sided weakness/dysarthria here with c/o diarrhea for several days no abdominal pain fevers n/v no risk factors no travel or abx use. She has low K and magnesium with some EKG changes at this time IV and oral K along with magnesium ordered. Stool studies and CT scan ordered. Planned admit. -I received sign-out from Dr. Lopez. -my interpretation of CT scan: No SBO. -radiology report, no acute abnormality Differential Diagnosis Differential Diagnoses: The differential diagnosis associated with the presentation includes lyte abnormality, diarrhea, dehydration Admission/Observation Consideration of admission/observation: Escalation of care including admission/observation considered admit given low K and changes on EKG Consult Healthcare Provider Management of the patient was discussed with: Hospitalist (will admit) Lab Data MDM Lab Attestation statement: I reviewed the patient's lab results. 10/22/23 06:38 10/22/23 06:38 Labs: Lab Results 10/21/23 Range/Units 20:12 WBC 7.4 (4.8-10.8) X10*3/uL RBC 4.18 L (4.20-5.50) X10*6/uL Hgb 13.1 (12.0-16.0) g/dl Hct 37.7 (37.0-47.0) % MCV 90.2 (80.0-98.0) fL MCH 31.3 (27.0-33.0) pg MCHC 34.7 (31.0-35.0) g/dl RDW 13.4 (11.0-16.0) % Plt Count 293 (160-400) X10*3/uL MPV 10.1 (9.4-12.3) fL Immature Gran % (Auto) 0.3 (0.0-0.4) % Neut % (Auto) 53.7 (45-73) % Lymph % (Auto) 33.3 (20-40) % Sierra % (Auto) 10.8 (2-11) % Eos % (Auto) 1.5 (0-4) % Baso % (Auto) 0.4 (0-2) % Lymph # (Auto) 2.5 (1.2-4.9) X10*3/uL Sierra # (Auto) 0.8 (0.1-1.2) X10*3/uL Eos # (Auto) 0.1 (0.0-0.4) X10*3/uL Baso # (Auto) 0.0 (0.0-0.2) X10*3/uL Abs Immat Gran (auto) 0.02 (0.00-0.03) X10*3/uL Absolute Neuts (auto) 4.0 (2.0-8.3) x10*3/uL Absolute Nucleated RBC 0.000 (0.0-0.012) X10*3/uL Nucleated RBC % (auto) 0.0 (0.0-0.2) /100WBC PT 18.6 H D (11.1-13.3) SEC INR 1.5 H (0.9-1.1) APTT 34.9 D (26.0-36.4) SEC Sodium 142 (135-145) mmol/L Potassium 2.6 L D (3.3-5.1) mmol/L Chloride 105 (96-108) mmol/L Carbon Dioxide 23 (22-29) mmol/L Anion Gap 17 (12-20) BUN 16 (9-16) mg/dL Creatinine 0.85 (0.5-1.4) mg/dL Estim Creat Clear Calc 48.0 Estimated GFR > 60 Random Glucose 128 H (60-115) mg/dL Calcium 10.0 D (8.4-10.2) mg/dL Magnesium 1.8 (1.6-2.6) mg/dL Total Bilirubin 0.6 (0.0-1.0) mg/dL AST 40 H (5-31) U/L ALT 66 H (0-31) U/L Alkaline Phosphatase 104 (39-117) U/L Troponin I High Sens 9.4 D (<3.5-17.0) ng/L Total Protein 7.6 (6.5-8.0) g/dL Albumin 4.4 (3.5-5.0) g/dL Influenza Type A (PCR) NEGATIVE (Negative) Influenza Type B (PCR) NEGATIVE (Negative) RSV RNA Qual (PCR) NEGATIVE (Negative) SARS-CoV-2 RNA (RT-PCR) NEGATIVE (Negative) Independent Interpretation I performed an independent interpretation of an: EKG and CT Scan Interpretation: Rate: 89 Rhythm: afib Assonet: normal Normal QRS complex. ST T wave : ST T wave chagnes in lateral leads and inf leads qTC: 593 prior studies: lytes abnormality The study has been interpreted contemporaneously by me. . Radiology Impression Discussion of test interpretation with radiology: I have reviewed the radiologist's reading. Radiologist Impression: FINDINGS: LUNG BASES: The visualized lung bases are unremarkable. LIVER, GALLBLADDER, AND BILIARY TREE: The liver is normal in size, shape, and attenuation. No focal hepatic lesion or biliary ductal dilatation is present. The gallbladder is unremarkable with no evidence of radiopaque gallstones, gallbladder wall thickening, or obvious pericholecystic inflammatory changes. PANCREAS: Unremarkable. SPLEEN: Unremarkable. ADRENAL GLANDS: Unremarkable. KIDNEYS AND URETERS: The kidneys are normal in size, shape, and attenuation. No hydronephrosis, hydroureter, or calculi seen. No perinephric stranding. BLADDER: Unremarkable. GASTROINTESTINAL TRACT: The small and large bowel are unremarkable. The appendix is nonvisualized. ABDOMINAL WALL: No significant hernia is appreciated. LYMPH NODES: Normal. VASCULAR: Vascular calcifications in the abdomen or pelvis. There is no aneurysm. PELVIC VISCERA: Unremarkable. OSSEOUS STRUCTURES: Unremarkable. CT/CT abdomen pelvis w IV con IMPRESSION: No acute abnormality CT scan abdomen pelvis. Fleischner guidelines were followed. Independent Historian Clinical information obtained from an independent historian. History obtained from or confirmed by: Other (jerman) External Record Review External record reviewed: Inpatient record Critical Care Time Critical Care Time Critical Care Time: Yes Total Critical Care Time: 45 Attestation: IV and PO repletion of K, IV magnesium I attest to this time spent taking care of the patient Discharge Plan Discharge Clinical Impression: Acute hypokalemia, Abnormal EKG Diarrhea Qualifiers: Diarrhea type: unspecified type Qualified Code(s): R19.7 - Diarrhea, unspecified Patient Disposition: Admitted As Inpatient
--- NOTE | 2023-10-21 20:23 | MHC.EDTECH ---
EKG was taken and signed by provider
[2023-10-21 20:34] LABS: Alanine Aminotransferase 66 U/L (0-31); Albumin Level 4.4 g/dL (3.5-5.0); Alkaline Phosphatase 104 U/L (39-117); Anion Gap 17 (12-20); Aspartate Amino Transferase 40 U/L (5-31); Bilirubin Total 0.6 mg/dL (0.0-1.0); Blood Urea Nitrogen 16 mg/dL (9-16); Carbon Dioxide 23 mmol/L (22-29); Chloride 105 mmol/L (96-108); Estimated Glomerular Filt Rate > 60; Glucose Random 128 mg/dL (60-115); Magnesium 1.8 mg/dL (1.6-2.6); Potassium 2.6 mmol/L (3.3-5.1); Sodium 142 mmol/L (135-145); Total Protein 7.6 g/dL (6.5-8.0)
[2023-10-21 20:39] VITALS: BP 165/78; PULSE 93; RESP 19; TEMP 36.4; O2SAT 98
--- NOTE | 2023-10-21 20:46 | PC.NURSE ---
Dr. Lopez @ bedside
--- NOTE | 2023-10-21 21:25 | PC.NURSE ---
PT currently resting in bed, in no apparent distress. and Caroline valdivia. Sons at bedside. PT offers no complaints or questions @ this time. VS stable.
--- NOTE | 2023-10-21 23:02 | PM.IMHP ---
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 Patient states she was told that her potassium and magnesium were low and she was sent to the ER. She endorses loose stools that has been ongoing for the last 5 days. She has 3-4 episodes of watery nonbloody diarrhea. No recent travel. No recent antibiotic use. Did not eat anything unusual. No sick contacts. Patient denies fever, chills, nausea, vomiting, chest discomfort, abdominal pain, shortness of breath, palpitations, changes in urinary habits In the emergency department, serum potassium found to be low and EKG with prolonged QTC Review of Systems Constitutional: Constitutional: Reports no additional constitutional complaints Cardiovascular: Cardiovascular: Reports no additional cardiovascular complaints Respiratory: Respiratory: Reports no additional respiratory complaints Gastrointestinal: Gastrointestinal: Reports loose stools Genitourinary: Genitourinary: Reports no additional female genitourinary complaints [facility] Medical History History of malignant melanoma History of basal cell carcinoma History of dysplastic nevus Degenerative joint disease (DJD) of hip Low back pain radiating to left lower extremity History of squamous cell carcinoma Venous insufficiency (chronic) (peripheral) Diarrhea Hypertension Family History Father Throat cancer Mother Kidney failure Surgical History H/O breast biopsy Hx of colonoscopy Hx of cholecystectomy Hx of appendectomy Social History Alcohol intake: current Alcohol intake frequency: holidays/special occasions only Alcohol type: wine Patient Tobacco Use Status: Never used Tobacco Smoked in Last 30 Days: No Use of substances other than those prescribed or required for medical reasons: No Advance Directives: No Advance Directives Information Provided: No Nutrition Risks: No Nutritional Risk Meds Allergies Allergy/AdvReac Type Severity Reaction Status Date / Time codeine Allergy Unknown rash Verified 10/01/23 08:41 Penicillins AdvReac Hives Verified 10/01/23 08:41 terbinafine [From Lamisil] AdvReac Hives Verified 10/01/23 08:41 Active Medications: Current Medications Potassium Chloride (Potassium Chloride/H20) 10 meq in 100 mls @ 100 mls/hr IV Q1H [facility] Stop: 10/22/23 00:44 Last Admin: 10/21/23 21:21 Dose: 100 mls/hr Sodium Chloride (Ns) 1,000 mls @ 100 mls/hr IVCONT .Q10H [facility] Home Medications Medication Instructions Recorded Confirmed Last Taken Type amlodipine 5 mg tablet 5 mg PO DAILY 10/01/23 Unknown History atorvastatin 80 mg tablet 80 mg PO BEDTIME 10/01/23 Unknown History clotrimazole 1 % topical cream 1 appl topical BID 10/01/23 Unknown History hydrocortisone 2.5 % topical cream 1 appl topical BID PRN 10/01/23 Unknown History losartan 50 mg tablet 50 mg PO DAILY 10/01/23 Unknown History dnrdcpaieaqs-bsmegnio-gzijte tablet 1 tab PO DAILY 10/01/23 Unknown History pantoprazole 40 mg tablet,delayed 40 mg PO DAILY 10/01/23 Unknown History release trazodone 50 mg tablet 50 mg PO BEDTIME 10/01/23 Unknown History apixaban 5 mg tablet (Eliquis) 5 mg PO BID 10/10/23 10/10/23 Unknown History melatonin 3 mg tablet 3 mg PO BEDTIME PRN 10/10/23 10/10/23 Unknown History metoprolol tartrate 50 mg tablet 25 mg PO DAILY 10/21/23 Unknown History nystatin 100,000 unit/gram topical 1 appl topical TID PRN Rash 10/21/23 Unknown History powder Physical Exam Vital Signs and Narrative: Vital Signs: Last Vital Signs Temp 97.5 F 10/21/23 20:39 Pulse 93 10/21/23 20:39 Resp 19 10/21/23 20:39 BP 165/78 H 10/21/23 20:39 Pulse Ox 98 10/21/23 20:39 O2 Del Method Room Air 10/21/23 20:39 BMI result Body Mass Index 26.4 Elderly male lying in bed in no distress Neck supple, no JVD Irregularly irregular, S1-S2 heard Regular breath sounds bilaterally, no wheezing or crackles appreciated Abdomen soft nontender, no guarding, no rigidity Patient is awake, alert and oriented to self, place, time and person ; right-sided weakness+ Psych: Normal mood No pedal edema Results Labs 10/21/23 20:12 10/21/23 20:12 Labs: Laboratory Results - last 24 hr 10/21/23 20:12 MCV 90.2 MCH 31.3 MCHC 34.7 RDW 13.4 Plt Count 293 MPV 10.1 Immature Gran % (Auto) 0.3 Neut % (Auto) 53.7 Lymph % (Auto) 33.3 [place] % (Auto) 10.8 Eos % (Auto) 1.5 Baso % (Auto) 0.4 Lymph # (Auto) 2.5 [place] # (Auto) 0.8 Eos # (Auto) 0.1 Baso # (Auto) 0.0 Abs Immat Gran (auto) 0.02 Absolute Neuts (auto) 4.0 Absolute Nucleated RBC 0.000 Nucleated RBC % (auto) 0.0 PT 18.6 H D INR 1.5 H APTT 34.9 D Anion Gap 17 Estim Creat Clear Calc 48.0 Estimated GFR > 60 Random Glucose 128 H Calcium 10.0 D Magnesium 1.8 Total Bilirubin 0.6 AST 40 H ALT 66 H Alkaline Phosphatase 104 Total Protein 7.6 Albumin 4.4 Influenza Type A (PCR) NEGATIVE Influenza Type B (PCR) NEGATIVE RSV RNA Qual (PCR) NEGATIVE SARS-CoV-2 RNA (RT-PCR) NEGATIVE Imaging Radiologist's Impressions: Impressions Abdomen/Pelvis CT 10/21/23 21:55 IMPRESSION: No acute abnormality CT scan abdomen pelvis. Fleischner guidelines were followed. 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 #. Diarrhea: Supportive care. Stool studies pending. #. Hypokalemia and hypomagnesemia due to above: Repeated. Monitor #. Prolonged QTC: Repeat EKG after replacing magnesium. Will place on cardiac monitoring #. Paroxysmal atrial fibrillation: Rate controlled in the ER. On Eliquis #. Mood disorder: Continue home mood stabilizers #. History of CVA: With residual right-sided weakness and dysarthria: On high-intensity statin. Not on antiplatelet agent #. Essential hypertension: Continue home antihypertensives Med rec pending DVT prophylaxis: Eliquis Full code Quality Stroke Does the patient have a stroke diagnosis?: No VTE Prior VTE?: No VTE Risk Level:: Medical - moderate - high VTE Device Contraindication: Treatment Not Indicated VTE Drug Contraindication: N/A - Med Ordered
--- NOTE | 2023-10-21 23:49 | PC.NURSE ---
PT laying in bed, resp even and unlabored. Able to provide urine sample. Oriented to self and place only. Dr. Rowe @ bedside, aware of pt's son's concerns with recent change in mentation.
--- NOTE | 2023-10-21 23:52 | PC.NURSE ---
2nd dose of 40 meq of Potassium ordered. Verified with Dr. Rowe.
[2023-10-22] VITALS (7 sets, daily range): BP systolic 108–149; BP diastolic 51–77; PULSE 70–75; RESP 12–20; TEMP 36.6–36.9; O2SAT 96–100; BMI 25.6
--- NOTE | 2023-10-22 00:33 | PC.NURSE ---
PT incontinent of stool x 3, samples collected for GI panel and Cdiff.
--- NOTE | 2023-10-22 01:13 | PC.NURSE ---
Pt called this RN into room to report pain in her left arm around the site of the IV. This RN and Honey RN checked IV site, it appears to be infiltrated. MD Rowe made aware at this time with no new orders
--- NOTE | 2023-10-22 02:37 | PC.NURSE ---
This RN spoke with pharmacy about protocol for KCl infiltrates, they stated that since it is such a low concentrate, there is nothing special to do other than warm compress. Pt states the area feels fine at this time, offering no complaints. TAMIKA Encarnacion placed 22g IV in RFA
--- NOTE | 2023-10-22 04:36 | PC.NURSE ---
pharmacy called to verify potassium iv last dose over due. pt needs one more dose and will be run at half rate due to prev rn report.
--- NOTE | 2023-10-22 05:18 | PC.NURSE ---
[facility]
--- NOTE | 2023-10-22 06:08 | MHC.EDTECH ---
patient incontenent of stool. Patient [place] purewick replaced.warm blanket given
--- NOTE | 2023-10-22 06:39 | PC.NURSE ---
potassium chloride 10meq received from pharmacy.
--- NOTE | 2023-10-22 06:46 | MHC.EDTECH ---
patient incontinent of stool. patient cleaned barrier cream applied. purewick removed due to amount of loose stool.
--- NOTE | 2023-10-22 07:36 | PC.NURSE ---
Alert and oriented, denies pain or discomfort, vss.
--- NOTE | 2023-10-22 07:45 | PHA.MEDREC ---
Pharmacy Consult ? Medication Reconciliation Pharmacy has completed the medication reconciliation. Spoke to pt's son Daljit to confirm meds. Patient poor historian of meds. Per Daljit, pt takes metoprolol 25mg BID.
--- NOTE | 2023-10-22 07:57 | PC.NURSE ---
Fluids running behind, 3rd bag of NS continues to infuse.
--- NOTE | 2023-10-22 08:07 | HO.PM.IMPN ---
Subjective Subjective Date of Service: 10/22/23 Interval History: f/u on diarrhea, causing dehydration and electorlytes abnormalities still has diarrhea, no abd pain, stool stidues pending Physical Exam Vital Signs: Vital Signs: Last Vital Signs Temp 97.9 F 10/22/23 06:28 Pulse 72 10/22/23 06:28 Resp 12 10/22/23 06:28 BP 108/51 L 10/22/23 06:28 Pulse Ox 96 10/22/23 06:28 O2 Del Method Room Air 10/22/23 06:28 BMI result Body Mass Index 26.4 Const: Other: General: AO X 3, no acute distress Resp: CTA bilateral CVS: S1,S2,RRR GI: +BS, NT, no distention Skin: No rash Neuro: old right sided weakness from stroke last july Psych: appropriate affect Objective Data Active Medications Acetaminophen (Acetaminophen 325 Mg Tablet) 650 mg PO Q6H PRN PRN Reason: Pain, Mild (Pain Scale 1-3) Last Admin: 10/22/23 00:07 Dose: 650 mg Documented By: LARISA Sodium Chloride (Ns) 1,000 mls @ 100 mls/hr IVCONT .Q10H [facility] Last Infusion: 10/22/23 02:15 Dose: 100 mls/hr Documented By: LARISA Melatonin (Melatonin 3 Mg Tablet) 6 mg PO BEDTIME PRN PRN Reason: Insomnia Sodium Chloride (0.9 % Sodium Chloride Flush 3 Ml Syringe) 3 ml IVFLUSH QSHIFT [facility] Last Admin: 10/22/23 07:57 Dose: Not Given Documented By: GERHARD Non-Admin Reason: IV Running Labs 10/22/23 06:38 10/22/23 06:38 Labs: Laboratory Results - last 24 hr 10/21/23 10/21/23 10/22/23 20:12 23:13 01:21 MCV 90.2 MCH 31.3 MCHC 34.7 RDW 13.4 Plt Count 293 MPV 10.1 Immature Gran % (Auto) 0.3 Neut % (Auto) 53.7 Lymph % (Auto) 33.3 [place] % (Auto) 10.8 Eos % (Auto) 1.5 Baso % (Auto) 0.4 Lymph # (Auto) 2.5 [place] # (Auto) 0.8 Eos # (Auto) 0.1 Baso # (Auto) 0.0 Abs Immat Gran (auto) 0.02 Absolute Neuts (auto) 4.0 Absolute Nucleated RBC 0.000 Nucleated RBC % (auto) 0.0 PT 18.6 H D INR 1.5 H APTT 34.9 D Anion Gap 17 Estim Creat Clear Calc 48.0 Estimated GFR > 60 Random Glucose 128 H Calcium 10.0 D Magnesium 1.8 Total Bilirubin 0.6 AST 40 H ALT 66 H Alkaline Phosphatase 104 Total Protein 7.6 Albumin 4.4 Urine Color Yellow Urine Appearance Clear Urine pH 7.0 Ur Specific [place] 1.020 Urine Protein Negative Urine Glucose (UA) Negative Urine Ketones Negative Urine Blood Small (1+) H Urine Nitrite Positive H Ur Leukocyte Esterase Trace H Urine RBC 0-2 Urine WBC 0-5 Ur Squamous Epith Cells 0-2 Urine Bacteria 4+ Hyaline Casts 0-2 C. difficile Tox B Gene NEGATIVE Influenza Type A (PCR) NEGATIVE Influenza Type B (PCR) NEGATIVE RSV RNA Qual (PCR) NEGATIVE SARS-CoV-2 RNA (RT-PCR) NEGATIVE 10/22/23 06:38 MCV 94.0 MCH 31.6 MCHC 33.6 RDW 13.6 Plt Count 245 MPV 11.0 Immature Gran % (Auto) 0.6 H Neut % (Auto) 48.0 Lymph % (Auto) 36.5 [place] % (Auto) 13.0 H Eos % (Auto) 1.3 Baso % (Auto) 0.6 Lymph # (Auto) 2.3 [place] # (Auto) 0.8 Eos # (Auto) 0.1 Baso # (Auto) 0.0 Abs Immat Gran (auto) 0.04 H Absolute Neuts (auto) 3.0 Absolute Nucleated RBC 0.000 Nucleated RBC % (auto) 0.0 PT INR APTT Anion Gap 17 Estim Creat Clear Calc 58.4 Estimated GFR > 60 Random Glucose 101 Calcium 9.2 D Magnesium 2.3 Total Bilirubin AST ALT Alkaline Phosphatase Total Protein Albumin Urine Color Urine Appearance Urine pH Ur Specific [place] Urine Protein Urine Glucose (UA) Urine Ketones Urine Blood Urine Nitrite Ur Leukocyte Esterase Urine RBC Urine WBC Ur Squamous Epith Cells Urine Bacteria Hyaline Casts C. 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 Diarrhea: negative cdif, gi panel pending - Supportive care, hydration, gi eval if persists Hypokalemia--still 2.9, replace with PO and IV and recheck later hypomagnesemia- corrected Prolonged QTC: Repeat EKG Paroxysmal atrial fibrillation, rate controlled. -continue metoprolol and eliquis Mood disorder: trazadone History of CVA: With residual right-sided weakness and dysarthria: On high-intensity statin and eliquis Essential hypertension, BP on lower side -hold Norvasc and Losartan, continue metoprolol Med rec completed DVT prophylaxis: Eliquis Full code need for inpt: diarrhea with electrolytes abnormalities and needs iv replacement and close monitoring discussed with patient and son at bedside Quality Stroke Does the patient have a stroke diagnosis?: No VTE Prior VTE?: No VTE Risk Level:: Medical - moderate - high VTE Device Contraindication: Treatment Not Indicated VTE Drug Contraindication: N/A - Med Ordered
--- NOTE | 2023-10-22 09:31 | PC.NURSE ---
[facility] vna called stating they follow patient at home and when ready for discharge to sent referral to resume care
--- NOTE | 2023-10-22 11:01 | PC.NURSE ---
Continues to have episodes of loose stools , incont care provided
--- NOTE | 2023-10-22 11:47 | PC.NURSE ---
Family updated on current condition
--- NOTE | 2023-10-22 14:06 | MHC.CM.PN ---
PATIENT LIVES WITH HCP/SPOUSE. COPY IS ON FILE AND PCP OFFICE AND A COPY IS REQUESTED IF FAMILY CAN BRING IN. HER SONS HAVE BEEN STAYING AT THE HOME WELL. SHE HAS A WALKER (WHICH IS IN THE ROOM), A WHEELCHAIR, AND VNA SERVICES THROUGH [facility]. REFERRAL PLACED TO FOLLOW FOR HER RETURN HOME.PCP IS THROUGH [facility] IN [place] BUT SHE IS UNABLE TO RECALL THE PROVIDER NAME. IMM 10/22 IN PATIENT CHART.
--- NOTE | 2023-10-22 14:11 | MHC.CM.PN ---
PCP IS KAJAL ONTIVEROS [phone]
--- NOTE | 2023-10-22 14:40 | MHC.EDTECH ---
Please talk with son Lloyd Marx with any update or concern through the weekend at [phone].
--- NOTE | 2023-10-23 02:14 | PM.EVENT ---
Event Note Date of Service: 10/23/23 Event Note: Nurse reported 3.1 second sinus pause. Patient asymptomatic and blood pressure 136/76. Will keep on life support technician and consult Cardiology. Time Spent With Patient Time: Total time managing care of this patient today ____ minutes.
[2023-10-23 02:20] VITALS: PULSE 35
--- NOTE | 2023-10-23 03:04 | PC.NURSE ---
spoke with dr rossi at 115 r/e EKG Per md to leave out for now. pt had one on 10/21
[2023-10-23 04:00] VITALS: BP 141/66; PULSE 56; RESP 18; TEMP 36.4; O2SAT 99
[2023-10-23 07:34] VITALS: BP 139/65; PULSE 78; RESP 17; TEMP 36.1; O2SAT 95
--- NOTE | 2023-10-23 10:08 | HO.PM.IMPN ---
Subjective Subjective Date of Service: 10/23/23 Interval History: still reports some episode of loose stool, labs pending Physical Exam Vital Signs: Vital Signs: Last Vital Signs Temp 96.9 F 10/23/23 07:34 Pulse 78 10/23/23 07:34 Resp 17 10/23/23 07:34 BP 139/65 10/23/23 07:34 Pulse Ox 95 10/23/23 07:34 O2 Del Method Room Air 10/23/23 07:34 BMI result Body Mass Index 25.6 Const: Other: General: AO X 3, no acute distress Resp: CTA bilateral CVS: S1,S2,RRR GI: +BS, NT, no distention Skin: No rash Neuro: old right sided weakness from stroke last july Psych: appropriate affect Objective Data Active Medications Acetaminophen (Acetaminophen 325 Mg Tablet) 650 mg PO Q6H PRN PRN Reason: Pain, Mild (Pain Scale 1-3) Last Admin: 10/23/23 06:40 Dose: 650 mg Documented By: SANDOR Apixaban (Apixaban 5 Mg Tablet) 5 mg PO BID [facility] Last Admin: 10/23/23 08:24 Dose: 5 mg Documented By: JEFFREY Atorvastatin Calcium (Atorvastatin Calcium 80 Mg Tablet) 80 mg PO BEDTIME [facility] Last Admin: 10/22/23 20:35 Dose: 80 mg Documented By: JHONY Clotrimazole (Clotrimazole 1 % Cream 15 Gm Tube) 1 appl TOPICAL BID PRN; Protocol PRN Reason: Rash Hydrocortisone (Hydrocortisone 1 % Cream 28.35 Gm Tube) 1 appl TOPICAL BID PRN PRN Reason: rash Potassium Chloride/Dextrose/Sod Cl (Kcl 10 Meq In 5% Dex/0.45% Sod) 10 meq in 1,000 mls @ 125 mls/hr IVCONT .Q8H [facility] Last Admin: 10/23/23 08:25 Dose: 125 mls/hr Documented By: JEFFREY Melatonin (Melatonin 3 Mg Tablet) 6 mg PO BEDTIME PRN PRN Reason: Insomnia Melatonin (Melatonin 3 Mg Tablet) 6 mg PO BEDTIME PRN PRN Reason: Sleep Multivitamins/Vitamin C (Multivitamin Tablet) 1 tab PO DAILY [facility] Last Admin: 10/23/23 08:24 Dose: 1 tab Documented By: JEFFREY Omeprazole (Omeprazole 20 Mg Capsule.) 20 mg PO DAILY@0630 [facility] Last Admin: 10/23/23 06:40 Dose: 20 mg Documented By: SANDOR Sodium Chloride (0.9 % Sodium Chloride Flush 3 Ml Syringe) 3 ml IVFLUSH QSHIFT [facility] Last Admin: 10/23/23 08:24 Dose: 3 ml Documented By: JEFFREY Trazodone HCl (Trazodone Hcl 50 Mg Tablet) 50 mg PO BEDTIME [facility] Last Admin: 10/22/23 20:35 Dose: 50 mg Documented By: JHONY Labs 10/22/23 06:38 10/22/23 06:38 Assessment and Plan (1) Diarrhea: Status: Acute (2) Abnormal EKG: Status: Acute (3) Acute hypokalemia: Status: Acute Plan This is a 83-year-old male with pertinent history of paroxysmal atrial fibrillation on Eliquis, mood disorder, 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 Diarrhea: negative cdif, gi panel pending - Supportive care, hydration, gi eval if persists -imodium prn HypOkalemia--still 2.9, replace with PO and IV and recheck later hypomagnesemia- corrected Prolonged QTC: likely from low k and low mag, now normal Paroxysmal atrial fibrillation, rate controlled. -continue metoprolol and eliquis Mood disorder: trazadone History of CVA: With residual right-sided weakness and dysarthria: On high-intensity statin and eliquis Essential hypertension, BP on lower side -hold Norvasc and Losartan, continue metoprolol Med rec completed DVT prophylaxis: Eliquis Full code need for inpt: diarrhea with electrolytes abnormalities and needs iv replacement and close monitoring discussed with patient and son at bedside Quality Stroke Does the patient have a stroke diagnosis?: No VTE Prior VTE?: No VTE Risk Level:: Medical - moderate - high VTE Device Contraindication: Treatment Not Indicated VTE Drug Contraindication: N/A - Med Ordered
[2023-10-23 11:33] VITALS: BP 165/72; PULSE 80; RESP 18; TEMP 36.7; O2SAT 98
--- NOTE | 2023-10-23 12:33 | PM.CNCAR ---
History of Present Illness History of Present Illness Date of Service: 10/23/23 Requesting physician: Nigel Rico Chief complaint: Hypokalemia, Abnormal EKG Narrative: 83-year-old female with background history of stroke, atrial fibrillation on Eliquis, hypertension, hyperlipidemia who is presenting with gastroenteritis and abnormal EKG. She was significantly hypokalemic. EKG showing ST depressions and T-wave inversions with QT prolongation. She has no chest discomfort shortness of breath. Potassium levels were quite low and she is getting repletion. Repeat EKGs improving. Otherwise clinically stable. [facility] Past Medical History Medical History History of malignant melanoma History of basal cell carcinoma History of dysplastic nevus Degenerative joint disease (DJD) of hip Low back pain radiating to left lower extremity History of squamous cell carcinoma Venous insufficiency (chronic) (peripheral) Diarrhea Hypertension Family History Family History Father Throat cancer Mother Kidney failure Surgical History Surgical History H/O breast biopsy Hx of colonoscopy Hx of cholecystectomy Hx of appendectomy Social History Social History Household Members: Spouse and Children Housing: House Do you presently have visiting nurse or other home services: Yes Alcohol intake: current Alcohol intake frequency: holidays/special occasions only Alcohol type: wine Patient Tobacco Use Status: Never used Tobacco Smoked in Last 30 Days: No Use of substances other than those prescribed or required for medical reasons: No Currently Displaying Signs/Symptoms of Drug Intoxication Withdrawal: No Have you been hit, kicked, punched, or otherwise hurt by someone within the past year? If so, by whom?: No Do you feel safe in your current relationship?: Yes Is there a partner from a previous relationship who is making you feel unsafe now?: No Are you made to feel afraid or neglected: No Advance Directives: No Advance Directives Information Provided: No Do you have thoughts of harming others: None Do you have a plan to hurt others: No Plan Recently lost weight without trying: No Nutrition Risks: No Nutritional Risk Patient : No : No Poor oral hygiene: No service: No Meds Allergies Allergy/AdvReac Type Severity Reaction Status Date / Time codeine Allergy Unknown rash Verified 10/01/23 08:41 Penicillins AdvReac Hives Verified 10/01/23 08:41 terbinafine [From Lamisil] AdvReac Hives Verified 10/01/23 08:41 Active Medications: Current Medications Acetaminophen (Acetaminophen 325 Mg Tablet) 650 mg PO Q6H PRN PRN Reason: Pain, Mild (Pain Scale 1-3) Last Admin: 10/23/23 06:40 Dose: 650 mg Apixaban (Apixaban 5 Mg Tablet) 5 mg PO BID [facility] Last Admin: 10/23/23 08:24 Dose: 5 mg Atorvastatin Calcium (Atorvastatin Calcium 80 Mg Tablet) 80 mg PO BEDTIME [facility] Last Admin: 10/22/23 20:35 Dose: 80 mg Clotrimazole (Clotrimazole 1 % Cream 15 Gm Tube) 1 appl TOPICAL BID PRN; Protocol PRN Reason: Rash Hydrocortisone (Hydrocortisone 1 % Cream 28.35 Gm Tube) 1 appl TOPICAL BID PRN PRN Reason: rash Potassium Chloride/Dextrose/Sod Cl (Kcl 10 Meq In 5% Dex/0.45% Sod) 10 meq in 1,000 mls @ 125 mls/hr IVCONT .Q8H [facility] Last Admin: 10/23/23 08:25 Dose: 125 mls/hr Melatonin (Melatonin 3 Mg Tablet) 6 mg PO BEDTIME PRN PRN Reason: Insomnia Melatonin (Melatonin 3 Mg Tablet) 6 mg PO BEDTIME PRN PRN Reason: Sleep Multivitamins/Vitamin C (Multivitamin Tablet) 1 tab PO DAILY [facility] Last Admin: 10/23/23 08:24 Dose: 1 tab Omeprazole (Omeprazole 20 Mg Capsule.Dr) 20 mg PO DAILY@0630 [facility] Last Admin: 10/23/23 06:40 Dose: 20 mg Potassium Chloride (Potassium Chloride Packet 20 Meq Packet) 40 meq PO Q6H [facility] Stop: 10/23/23 23:16 Last Admin: 10/23/23 11:31 Dose: 40 meq Sodium Chloride (0.9 % Sodium Chloride Flush 3 Ml Syringe) 3 ml IVFLUSH QSHIFT [facility] Last Admin: 10/23/23 08:24 Dose: 3 ml Trazodone HCl (Trazodone Hcl 50 Mg Tablet) 50 mg PO BEDTIME [facility] Last Admin: 10/22/23 20:35 Dose: 50 mg Home Medications Medication Instructions Recorded Confirmed Last Taken Type amlodipine 5 mg tablet 5 mg PO DAILY 10/01/23 10/22/23 10/21/23 History atorvastatin 80 mg tablet 80 mg PO BEDTIME 10/01/23 10/22/23 10/21/23 History clotrimazole 1 % topical cream 1 appl topical BID PRN Rash 10/01/23 10/22/23 Unknown History hydrocortisone 2.5 % topical cream 1 appl topical BID PRN Rash 10/01/23 10/22/23 Unknown History losartan 50 mg tablet 50 mg PO DAILY 10/01/23 10/22/23 10/21/23 History [id number]-[id number] tablet 1 tab PO DAILY 10/01/23 10/22/23 10/21/23 History pantoprazole 40 mg tablet,delayed 40 mg PO DAILY@0630 10/01/23 10/22/23 10/21/23 History release trazodone 50 mg tablet 50 mg PO BEDTIME 10/01/23 10/22/23 10/21/23 History apixaban 5 mg tablet (Eliquis) 5 mg PO BID 10/10/23 10/22/23 10/21/23 History melatonin 3 mg tablet 6 mg PO BEDTIME PRN Sleep 10/10/23 10/22/23 Unknown History metoprolol tartrate 50 mg tablet 25 mg PO BID 10/21/23 10/22/23 10/21/23 History nystatin 100,000 unit/gram topical 1 appl topical TID PRN Rash 10/21/23 10/22/23 Unknown History powder Physical Exam Vital Signs: Vital Signs: Last Vital Signs Temp 98.1 F 10/23/23 11:33 Pulse 80 10/23/23 11:33 Resp 18 10/23/23 11:33 BP 165/72 H 10/23/23 11:33 Pulse Ox 98 10/23/23 11:33 O2 Del Method Room Air 10/23/23 11:33 BMI result Body Mass Index 25.6 GENERAL APPEARANCE: in no acute distress, pleasant. NECK: no carotid bruit, no jugular venous distention. SKIN: no suspicious lesions, warm and dry. HEART: no murmurs, regular rate and rhythm. LUNGS: clear to auscultation bilaterally. ABDOMEN: soft, nontender. EXTREMITIES: no edema. PERIPHERAL PULSES: equal. Objective Labs and Meds 10/22/23 06:38 10/23/23 10:26 Lab results: Laboratory Results - last 24 hr 10/23/23 10:26 Sodium 140 Potassium 2.8 L Chloride 108 Carbon Dioxide 21 L Anion Gap 14 BUN 5 L Creatinine 0.71 Estim Creat Clear Calc 56.7 Estimated GFR > 60 Random Glucose 195 H Calcium 8.8 Magnesium 1.7 Assessment and Plan (1) Abnormal EKG: Status: Acute (2) Acute hypokalemia: Status: Acute Plan 83-year-old female with previous history of stroke and atrial fibrillation presenting with gastroenteritis. She is hypokalemic and has diffuse ST-T changes. QT is prolonged. EKG improving with repletion of potassium. Hold trazodone for now. Please call if any other concerns arise. Signing off for now. Procedures Date of Service Date of Service: 10/23/23
--- NOTE | 2023-10-23 14:29 | PC.NURSE ---
Pt's BP 165/72, continues in a-fib. Reported to Dr. Nancy Rico.
[2023-10-23 16:00] VITALS: BP 162/75; PULSE 92; RESP 18; TEMP 36.2; O2SAT 98
[2023-10-23 20:00] VITALS: BP 155/74; PULSE 90; RESP 16; TEMP 36.8; O2SAT 98
[2023-10-24] VITALS: BP 131/90; PULSE 84; RESP 16; TEMP 36.4; O2SAT 99
[2023-10-24 04:45] VITALS: BP 147/65; PULSE 84; RESP 16; TEMP 36.4; O2SAT 97
[2023-10-24 08:00] VITALS: BP 142/70; PULSE 79; RESP 17; TEMP 37.1; O2SAT 98
[2023-10-24 08:00] LABS: Anion Gap 10 (12-20); Blood Urea Nitrogen 5 mg/dL (9-16); Carbon Dioxide 24 mmol/L (22-29); Chloride 111 mmol/L (96-108); Estimated Glomerular Filt Rate > 60; Glucose Random 121 mg/dL (60-115); Potassium 3.2 mmol/L (3.3-5.1); Sodium 142 mmol/L (135-145)
[2023-10-24 09:21] LABS: Magnesium 1.6 mg/dL (1.6-2.6)
--- NOTE | 2023-10-24 10:43 | HO.PM.IMPN ---
Subjective Subjective Date of Service: 10/24/23 Interval History: Persistent diarrhea, low k, stool studies still pending Physical Exam Vital Signs: Vital Signs: Last Vital Signs Temp 98.8 F 10/24/23 08:00 Pulse 79 10/24/23 08:00 Resp 17 10/24/23 08:00 BP 142/70 H 10/24/23 08:00 Pulse Ox 98 10/24/23 08:00 O2 Del Method Room Air 10/24/23 08:00 BMI result Body Mass Index 25.6 Objective Data Active Medications Acetaminophen (Acetaminophen 325 Mg Tablet) 650 mg PO Q6H PRN PRN Reason: Pain, Mild (Pain Scale 1-3) Last Admin: 10/23/23 20:36 Dose: 650 mg Documented By: JEWELL Amlodipine Besylate (Amlodipine Besylate 5 Mg Tablet) 5 mg PO DAILY [facility]; Protocol Last Admin: 10/24/23 09:17 Dose: 5 mg Documented By: JORY Apixaban (Apixaban 5 Mg Tablet) 5 mg PO BID [facility] Last Admin: 10/24/23 08:17 Dose: 5 mg Documented By: JORY Atorvastatin Calcium (Atorvastatin Calcium 80 Mg Tablet) 80 mg PO BEDTIME [facility] Last Admin: 10/23/23 20:19 Dose: 80 mg Documented By: JEWELL Cefuroxime Axetil (Cefuroxime Axetil 250 Mg Tablet) 250 mg PO Q12H [facility] Last Admin: 10/24/23 09:17 Dose: 250 mg Documented By: JORY Clotrimazole (Clotrimazole 1 % Cream 15 Gm Tube) 1 appl TOPICAL BID PRN; Protocol PRN Reason: Rash Hydrocortisone (Hydrocortisone 1 % Cream 28.35 Gm Tube) 1 appl TOPICAL BID PRN PRN Reason: rash Losartan Potassium (Losartan Potassium 50 Mg Tablet) 50 mg PO DAILY [facility]; Protocol Last Admin: 10/24/23 09:17 Dose: 50 mg Documented By: JORY Melatonin (Melatonin 3 Mg Tablet) 6 mg PO BEDTIME PRN PRN Reason: Insomnia Melatonin (Melatonin 3 Mg Tablet) 6 mg PO BEDTIME PRN PRN Reason: Sleep Multivitamins/Vitamin C (Multivitamin Tablet) 1 tab PO DAILY [facility] Last Admin: 10/24/23 08:16 Dose: 1 tab Documented By: JORY Omeprazole (Omeprazole 20 Mg Capsule.Dr) 20 mg PO DAILY@0630 [facility] Last Admin: 10/24/23 06:15 Dose: 20 mg Documented By: SANDOR Potassium Chloride (Potassium Chloride Packet 20 Meq Packet) 40 meq PO BID [facility] Stop: 10/25/23 09:01 Last Admin: 10/24/23 09:17 Dose: 40 meq Documented By: JORY Sodium Chloride (0.9 % Sodium Chloride Flush 3 Ml Syringe) 3 ml IVFLUSH QSHIFT [facility] Last Admin: 10/24/23 08:17 Dose: Not Given Documented By: JORY Non-Admin Reason: IV Running Trazodone HCl (Trazodone Hcl 50 Mg Tablet) 50 mg PO BEDTIME [facility] Last Admin: 10/22/23 20:35 Dose: 50 mg Documented By: JHONY Labs 10/22/23 06:38 10/24/23 06:42 Labs: Laboratory Results - last 24 hr 10/22/23 10/23/23 10/23/23 01:21 10:26 18:45 Anion Gap 14 Estim Creat Clear Calc 56.7 Estimated GFR > 60 Random Glucose 195 H Calcium 8.8 Magnesium 1.7 Stl C. cayetanensis PCR Cancelled Not Detected Stool Rotavirus A PCR Cancelled Not Detected Stl Adenov F 40/41 PCR Cancelled Not Detected Stool Astrovirus (PCR) Cancelled Not Detected Stool Campylobacter PCR Cancelled Not Detected Stool Cryptosporidium PCR Cancelled Not Detected Stl Sh Tox Pr E STEC PCR Cancelled Not Detected Stool E coli O157 PCR Cancelled Not applicable Stl Enterotoxigenic E PCR Cancelled Not Detected Stool EPEC (PCR) Cancelled Not Detected Stool EAEC (PCR) Cancelled Not Detected Stl E. histolytica PCR Cancelled Not Detected Stool Giardia Lamblia PCR Cancelled Not Detected Stl P. shigelloides PCR Cancelled Not Detected Stool Salmonella PCR Cancelled Not Detected Stool Sapovirus (PCR) Cancelled Not Detected Stl Shigella/EIEC PCR Cancelled Not Detected St Y.enterocolitica PCR Cancelled Not Detected Stool Vibrio (PCR) Cancelled Not Detected Stl Vibrio cholerae PCR Cancelled Not Detected Stl Norovirus GI/GII PCR Cancelled Not Detected C. difficile Tox B Gene NEGATIVE 10/24/23 06:42 Anion Gap 10 L Estim Creat Clear Calc 61.0 Estimated GFR > 60 Random Glucose 121 H Calcium 9.0 Magnesium 1.6 Stl C. cayetanensis PCR Stool Rotavirus A PCR Stl Adenov F 40/41 PCR Stool Astrovirus (PCR) Stool Campylobacter PCR Stool Cryptosporidium PCR Stl Sh Tox Pr E STEC PCR Stool E coli O157 PCR Stl Enterotoxigenic E PCR Stool EPEC (PCR) Stool EAEC (PCR) Stl E. histolytica PCR Stool Giardia Lamblia PCR Stl P. shigelloides PCR Stool Salmonella PCR Stool Sapovirus (PCR) Stl Shigella/EIEC PCR St Y.enterocolitica PCR Stool Vibrio (PCR) Stl Vibrio cholerae PCR Stl Norovirus GI/GII PCR C. 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 Diarrhea: negative cdif, gi panel stillpending, diarrhea has lots of chronicity to it - Supportive care, hydration, gi eval if persists -imodium prn HypOkalemia--still 3.2, replace with PO, check mag, repeat tomorrow hypomagnesemia- corrected Prolonged QTC: likely from low k and low mag, now normal Paroxysmal atrial fibrillation, rate controlled. -continue metoprolol and eliquis Mood disorder: trazadone History of CVA: With residual right-sided weakness and dysarthria: On high-intensity statin and eliquis Essential hypertension, BP on lower side -hold Norvasc and Losartan, continue metoprolol Med rec completed DVT prophylaxis: Eliquis Full code need for inpt: diarrhea with electrolytes abnormalities and needs iv replacement and close monitoring discharge tomorrow Quality Stroke Does the patient have a stroke diagnosis?: No VTE Prior VTE?: No VTE Risk Level:: Medical - moderate - high VTE Device Contraindication: Treatment Not Indicated VTE Drug Contraindication: N/A - Med Ordered
[2023-10-24 12:00] VITALS: BP 162/73; PULSE 90; RESP 17; TEMP 37; O2SAT 98
[2023-10-24 16:16] VITALS: BP 140/73; PULSE 84; RESP 20; TEMP 37.1; O2SAT 98
[2023-10-24 19:40] VITALS: BP 151/67; PULSE 96; RESP 18; TEMP 37.1; O2SAT 98
--- NOTE | 2023-10-24 22:56 | PC.NURSE ---
pt able to make needs known and ambulate to restroom with walker, steady gait.
[2023-10-25] VITALS: BP 153/75; PULSE 87; RESP 18; TEMP 36.3; O2SAT 98
[2023-10-25 03:46] VITALS: BP 128/74; PULSE 89; RESP 16; TEMP 36.4; O2SAT 98
[2023-10-25 07:35] VITALS: BP 165/74; PULSE 75; RESP 18; TEMP 37.1; O2SAT 97
[2023-10-25 10:45] LABS: Anion Gap 17 (12-20); Blood Urea Nitrogen 10 mg/dL (9-16); Calcium 9.7 mg/dL (8.4-10.2); Carbon Dioxide 18 mmol/L (22-29); Chloride 109 mmol/L (96-108); Creatinine Clr Calc Pharmacy 51.6; Estimated Glomerular Filt Rate > 60; Glucose Random 120 mg/dL (60-115); Potassium 3.9 mmol/L (3.3-5.1); Sodium 140 mmol/L (135-145)
[2023-10-25 11:27] VITALS: BP 129/60; PULSE 77; RESP 18; TEMP 37.2; O2SAT 97
[2023-10-25 12:28] VITALS: BP 129/60; PULSE 77; O2SAT 97
--- NOTE | 2023-10-25 13:53 | MHC.CM.PN ---
EMR reviewed. Per MD patient is medically cleared for dc. PT is recommending home with services. Patient is active with [facility], who will continue services. Son to transport. IMM delivered.
--- NOTE | 2023-10-25 13:58 | P.DS_ITS ---
DS: Providers Provider Date of Service: 10/25/23 Date of admission: 10/22/23 10:40 Primary care physician: Jonna Soto MD Consults: 10/23/23 02:13 Consult to Cardiology Routine Consulting Provider: [facility] Reason for consultation: sinus pause Has provider been notified: Yes DS: Diagnosis Discharge Diagnosis (1) Diarrhea: Status: Acute (2) Abnormal EKG: Status: Acute (3) Acute hypokalemia: Status: Acute DS: Summary Hospital Course Hospital Course: Admission HPI Chief Complaint: Abnormal labs This is a 83-year-old male with pertinent history of paroxysmal atrial fibrillation on Eliquis, mood disorder, 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 Patient states she was told that her potassium and magnesium were low and she was sent to the ER. She endorses loose stools that has been ongoing for the last 5 days. She has 3-4 episodes of watery nonbloody diarrhea. No recent travel. No recent antibiotic use. Did not eat anything unusual. No sick contacts. Patient denies fever, chills, nausea, vomiting, chest discomfort, abdominal pain, shortness of breath, palpitations, changes in urinary habits In the emergency department, serum potassium found to be low and EKG with prolonged QTC Hospital course: Patient was sent to the ED for evaluation of abnormal labs, namely potassium of 2.6 and magnesium was normal. She has been having diarrhea. C dif test was negative and gi panel was also negative potassium was replaced intrevenously and orall and has corrected, presently potasssium level is 3.9 and diarrhea has improved. Will have repeat labs done within the week to ensure that potassium is staying up. Diarrhea: negative cdif, gi panel is negative, may take immodium PRN Prolonged QTC: From low potassium and correct following correction of potassium Paroxysmal atrial fibrillation, rate controlled. -continue metoprolol and eliquis Mood disorder: trazadone History of CVA: With residual right-sided weakness and dysarthria: On high- intensity statin and eliquis Essential hypertension, BP on lower side -hold Norvasc and Losartan, continue metoprolol PT saw her and recommend STR Time Attestation Discharge coordination time: Greater than 30 minutes Quality: Safe Use of Opioids Does Pt have an Active Cancer Diagnosis on the Problem List?: No Quality: Stroke Does the patient have a stroke diagnosis?: No Physical Exam Vital Signs: Vital Signs: Last Vital Signs Temp 99.0 F 10/25/23 11:27 Pulse 77 10/25/23 12:28 Resp 18 10/25/23 11:27 BP 129/60 10/25/23 12:28 Pulse Ox 97 10/25/23 12:28 O2 Del Method Room Air 10/25/23 11:27 BMI result Body Mass Index 25.6 DS: Data Data Completed and Pending Labs on day of discharge: Laboratory Results - last 24 hr 10/25/23 10:00 Sodium 140 Potassium 3.9 D Chloride 109 H Carbon Dioxide 18 L Anion Gap 17 BUN 10 Creatinine 0.78 Estim Creat Clear Calc 51.6 Estimated GFR > 60 Random Glucose 120 H Calcium 9.7 D Discharge Plan Discharge Anticipated Discharge Date/Time: 10/25/23 13:58 Patient Disposition: Home Health Service Discharge Diagnosis: Diarrhea, hyponatremia, prologned QT, hypomagnesemia Referrals: [facility] [Outside] - 1 Day (Resume VNA services) Jonna Dillard MD [Primary Care Provider] - 1 Week Discharge Medications: New cefuroxime axetil 250 mg Tablet 250 mg PO Q12H Qty: 5 0RF Continued (DME) Ultra-Light Rollator Misc See Rx Instructions .Route Qty: 1 0RF Rx Instructions: As directed metoprolol tartrate 50 mg tablet 25 mg PO BID nystatin 100,000 unit/gram powder 1 appl topical TID PRN (Reason: Rash) atorvastatin 80 mg tablet 80 mg PO BEDTIME amlodipine 5 mg tablet 5 mg PO DAILY trazodone 50 mg tablet 50 mg PO BEDTIME pantoprazole 40 mg tablet,delayed release (DR/EC) 40 mg PO DAILY@0630 losartan 50 mg tablet 50 mg PO DAILY hydrocortisone 2.5 % cream 1 appl topical BID PRN (Reason: Rash) clotrimazole 1 % cream 1 appl topical BID PRN (Reason: Rash) [id number] Tablet 1 tab PO DAILY Eliquis 5 mg tablet 5 mg PO BID melatonin 3 mg tablet 6 mg PO BEDTIME PRN (Reason: Sleep) Discharge Orders: Discharge Order (Routine); Ordered 10/25/23 Ordered By: Nigel Rico Diet: Advance to usual diet Activity on Discharge: As tolerated Stand Alone Forms: Patient Portal Discharge page Other Ambulatory Orders: Basic Metabolic Panel Fasting (Routine) Timeframe: 20231027 Facility: [facility] - Location: Laboratory Ordered By: Nigel Rico Care Plan Goals: full recovery from weakness, diarrhea, uti and low potassium Health Concerns: chronic diarrhea, hypokalemia, old stroke Plan of Treatment: drink plenty of fluid take antibiotics for uti and follow up with your Doctor in a week take Cefuroxime for uti check potassium level on wednesday eat 1 banana a day Assessment: see above Discharge Date/Time: 10/25/23 15:31
== END 2023-10-25 15:31 | disposition home health service (06) | DRG 392 ==
LOC: HO.ED 21:55 → HO.EDOVER 10-22 00:32 → HO.S3 10-22 15:37
PROVIDERS: Physician Assistant; Admitting Provider Student in an Organized Health Care Education/Training Program; Emergency Provider Emergency Medicine; PCP Internal Medicine; Visit Provider Internal Medicine
DX: R19.7 Diarrhea, unspecified (principal); I69.351 Hemiplegia and hemiparesis following cerebral infarction affecting right dominant side; E87.6 Hypokalemia; E86.0 Dehydration; I10 Essential (primary) hypertension; I49.5 Sick sinus syndrome; E83.42 Hypomagnesemia; I48.0 Paroxysmal atrial fibrillation; R94.31 Abnormal electrocardiogram [ECG] [EKG]; Z20.822 Contact with and (suspected) exposure to COVID-19; I69.322 Dysarthria following cerebral infarction; Z79.01 Long term (current) use of anticoagulants; Z79.899 Other long term (current) drug therapy
CPT/HCPCS: 0241U; 36415; 74177; 80048; 80053; 81001; 83735; 84484; 85025; 85610; 85730; 87086; 87088; 87186; 87493; 87507; 92950; 93005; 97161; 99221; 99285; J3475; J3480; Q9967

== ENCOUNTER → 2023-10-21 19:48 | Outpatient (BNV) | payer MEDICARE, SELFPAY | PROVIDERS: Admitting Provider Student in an Organized Health Care Education/Training Program; Emergency Provider Emergency Medicine; Visit Provider Internal Medicine Cardiovascular Disease | DX: I48.91 Unspecified atrial fibrillation (principal); R94.31 Abnormal electrocardiogram [ECG] [EKG] | CPT/HCPCS: 93010 ==

== ENCOUNTER → 2023-10-21 20:09 | Outpatient (BNV) | payer MEDICARE, SELFPAY | PROVIDERS: Emergency Provider Emergency Medicine; Visit Provider Student in an Organized Health Care Education/Training Program | DX: R19.7 Diarrhea, unspecified (principal); R94.31 Abnormal electrocardiogram [ECG] [EKG]; E87.6 Hypokalemia | CPT/HCPCS: 99222; 99232; 99239 ==

== ENCOUNTER → 2023-10-22 10:40 | Outpatient (BNV) | payer MEDICARE, SELFPAY | PROVIDERS: Admitting Provider Student in an Organized Health Care Education/Training Program; Emergency Provider Emergency Medicine; Visit Provider Internal Medicine Cardiovascular Disease | DX: I48.91 Unspecified atrial fibrillation (principal); R94.31 Abnormal electrocardiogram [ECG] [EKG] | CPT/HCPCS: 93010; 99222 ==

== ENCOUNTER 2023-10-27 10:03 | Outpatient (REF) | payer MEDICARE, SELFPAY ==
[2023-10-27 12:40] LABS: Anion Gap 16 (12-20); Blood Urea Nitrogen 17 mg/dL (9-16); Calcium 10.1 mg/dL (8.4-10.2); Carbon Dioxide 24 mmol/L (22-29); Chloride 107 mmol/L (96-108); Estimated Glomerular Filt Rate > 60; Glucose Fasting 100 mg/dL (60-99); Potassium 3.3 mmol/L (3.3-5.1); Sodium 144 mmol/L (135-145)
== END 2023-10-27 10:04 | disposition home or self-care (01) ==
LOC: HO.LAB 10:03
PROVIDERS: PCP Internal Medicine; Visit Provider Internal Medicine
DX: E87.6 Hypokalemia (principal)
CPT/HCPCS: 36415; 80048

== ENCOUNTER 2023-11-01 10:55 | Outpatient (REF) | payer MEDICARE, SELFPAY ==
--- NOTE | ~2023-11-01 | MR_ITS ---
EXAMINATION: MR BRAIN WITHOUT CONTRAST CLINICAL INFORMATION: History of stroke/TIA COMPARISON: CT head and CT angiogram of head and neck 08/10/2023 TECHNIQUE: MRI of the brain was obtained using routine sequences without contrast. FINDINGS: Interval development of extensive encephalomalacia/gliosis in the left MCA territory including the left frontal lobe, left insula, left basal ganglia, left temporal lobe, and portions of the left parietal lobe. No restricted diffusion to indicate acute infarction. Mild ex vacuo dilatation of the left lateral ventricle. Small chronic areas of lacunar infarction along the right basal ganglia/stout radiata. Generalized cerebral volume loss with associated ventricular and sulcal prominence. Periventricular, subcortical, and pontine T2/FLAIR hyperintense foci are nonspecific but likely represent moderate chronic microvascular ischemic change. The proximal intracranial flow voids are grossly preserved. Trace scattered polypoid mucosal thickening in the paranasal sinuses. The mastoid air cells are well-aerated. No focal expansile/destructive osseous lesion. MR/MR head/brain wo con IMPRESSION: Interval development of encephalomalacia/gliosis throughout the left MCA territory corresponding to known prior left M1 occlusion. No restricted diffusion to indicate acute infarction.
[2023-11-01 12:35] LABS: Blood Urea Nitrogen 19 mg/dL (9-16); Calcium 9.6 mg/dL (8.4-10.2); Estimated Glomerular Filt Rate 54; Glucose Random 124 mg/dL (60-115)
[2023-11-01 12:47] LABS: Anion Gap 16 (12-20); Carbon Dioxide 23 mmol/L (22-29); Chloride 104 mmol/L (96-108); Potassium 2.4 mmol/L (3.3-5.1); Sodium 141 mmol/L (135-145)
== END 2023-11-01 10:56 | disposition home or self-care (01) ==
LOC: HO.MRI 10:55
PROVIDERS: PCP Internal Medicine; Visit Provider Nurse Practitioner Family
DX: Z13.89 Encounter for screening for other disorder (principal)
CPT/HCPCS: 36415; 70551; 80048

== ENCOUNTER 2023-11-01 13:36 | Inpatient (IN) | payer MEDICARE, SELFPAY ==
[2023-11-01 13:55] VITALS: BP 136/60; PULSE 88; RESP 16; TEMP 36; O2SAT 98; BMI 28.9
--- NOTE | 2023-11-01 14:07 | ECG_ITS ---
Test Reason : low potassium Blood Pressure : / mmHG Vent. Rate : 087 BPM Atrial Rate : 000 BPM P-R Int : 000 ms QRS Dur : 090 ms QT Int : 360 ms P-R-T Axes : 000 024 160 degrees QTc Int : 433 ms Atrial fibrillation Possible Anterior infarct (cited on or before 21-OCT-2023) ST & T wave abnormality, consider inferior ischemia Abnormal ECG When compared with ECG of 23-OCT-2023 02:23, Nonspecific T wave abnormality now evident in Inferior leads Nonspecific T wave abnormality has replaced inverted T waves in Anterior leads T wave inversion now evident in Lateral leads Referred By: Audrey Galicia Electronically Signed By:ERMA TOVAR
[2023-11-01 14:30] LABS: MANUAL DIFF FLAG NO
[2023-11-01 14:32] LABS: Basophils Percent Auto 0.3 % (0-2); Eosinophils Absolute Auto 0.1 X10*3/uL (0.0-0.4); Eosinophils Percent Auto 0.8 % (0-4); Hematocrit 37.7 % (37.0-47.0); Hemoglobin 12.9 g/dl (12.0-16.0); Imm Gran Abs Auto 0.03 X10*3/uL (0.00-0.03); Imm Gran Pct Auto 0.3 % (0.0-0.4); Lymphocytes Absolute Auto 1.8 X10*3/uL (1.2-4.9); Lymphocytes Percent Auto 18.7 % (20-40); Mean Corpuscular HGB Conc 34.2 g/dl (31.0-35.0); Mean Corpuscular Hemoglobin 31.5 pg (27.0-33.0); Mean Corpuscular Volume 92.2 fL (80.0-98.0); Mean Platelet Volume 10.3 fL (9.4-12.3); Monocytes Absolute Auto 1.3 X10*3/uL (0.1-1.2); Monocytes Percent Auto 12.8 % (2-11); Neutrophils Absolute Auto 6.6 x10*3/uL (2.0-8.3); Neutrophils Percent Auto 67.1 % (45-73); Platelet Count 300 X10*3/uL (160-400); Red Blood Count 4.09 X10*6/uL (4.20-5.50); Red Cell Distribution Width 13.6 % (11.0-16.0); White Blood Count 9.8 X10*3/uL (4.8-10.8)
[2023-11-01 14:57] LABS: Anion Gap 18 (12-20); Blood Urea Nitrogen 18 mg/dL (9-16); Calcium 9.8 mg/dL (8.4-10.2); Carbon Dioxide 21 mmol/L (22-29); Chloride 104 mmol/L (96-108); Creatinine Clr Calc Pharmacy 43.6; Estimated Glomerular Filt Rate 57; Glucose Random 120 mg/dL (60-115); Lipase 8 U/L (8-78); Magnesium 1.8 mg/dL (1.6-2.6); Potassium 2.6 mmol/L (3.3-5.1); Sodium 140 mmol/L (135-145)
--- NOTE | 2023-11-01 16:00 | ED_ITS ---
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 Patient denies fever or chills. No headache, blurry vision, dizziness or episode of LOC. has used abx for recent UTI Related Data Home Medications Medication Instructions Recorded Confirmed amlodipine 5 mg tablet 5 mg PO DAILY 10/01/23 10/22/23 atorvastatin 80 mg tablet 80 mg PO BEDTIME 10/01/23 10/22/23 clotrimazole 1 % topical cream 1 appl topical BID PRN Rash 10/01/23 10/22/23 hydrocortisone 2.5 % topical cream 1 appl topical BID PRN Rash 10/01/23 10/22/23 losartan 50 mg tablet 50 mg PO DAILY 10/01/23 10/22/23 bnelbpbhkwza-rmaqfilw-jfbbyr tablet 1 tab PO DAILY 10/01/23 10/22/23 pantoprazole 40 mg tablet,delayed 40 mg PO DAILY@0630 10/01/23 10/22/23 release trazodone 50 mg tablet 50 mg PO BEDTIME 10/01/23 10/22/23 apixaban 5 mg tablet (Eliquis) 5 mg PO BID 10/10/23 10/22/23 melatonin 3 mg tablet 6 mg PO BEDTIME PRN Sleep 10/10/23 10/22/23 metoprolol tartrate 50 mg tablet 25 mg PO BID 10/21/23 10/22/23 nystatin 100,000 unit/gram topical 1 appl topical TID PRN Rash 10/21/23 10/22/23 powder Previous Rx's Medication Instructions Recorded chris (Ultra-Light Rollator [facility] [place]) #1 ea 08/22/21 cefuroxime axetil 250 mg tablet 250 mg PO Q12H #5 tabs 10/25/23 Allergies Allergy/AdvReac Type Severity Reaction Status Date / Time codeine Allergy Unknown rash Verified 11/01/23 13:54 Penicillins AdvReac Hives Verified 11/01/23 13:54 terbinafine [From Lamisil] AdvReac Hives Verified 11/01/23 13:54 Review of Systems 2 Review of Systems: Yes all other systems are reviewed and are negative PMFSH Past Medical History Onset Date is defined in the Problem List Problems that require an onset date and time if occurred within 24 hrs of arrival to the ED Aortic Dissection and Rupture; Neurologic impairment; Cardiopulmonary Arrest; Endotracheal Intubation; Insertion or Replacement of Mechanical Circulatory Assist Device Medical History History of malignant melanoma History of basal cell carcinoma History of dysplastic nevus Degenerative joint disease (DJD) of hip Low back pain radiating to left lower extremity History of squamous cell carcinoma Venous insufficiency (chronic) (peripheral) Diarrhea Hypertension Surgical History H/O breast biopsy Hx of colonoscopy Hx of cholecystectomy Hx of appendectomy Family History Family History Father Throat cancer Mother Kidney failure Social History Social History Household Members: Spouse and Children Housing: House Do you presently have visiting nurse or other home services: Yes Alcohol intake: current Alcohol intake frequency: holidays/special occasions only Alcohol type: wine Patient Tobacco Use Status: Never used Tobacco Smoked in Last 30 Days: No Use of substances other than those prescribed or required for medical reasons: No Advance Directives: Yes Advance Directives Information Provided: No Advance Directives on File: No service: No Physical Exam ED Vital Signs: Vital Signs - 24 hr 11/01/23 13:55 11/01/23 17:54 Temperature 96.8 F 97.5 F Pulse Rate 88 98 Respiratory Rate 16 16 Blood Pressure 136/60 150/62 H Pulse Oximetry 98 98 Oxygen Delivery Method Room Air Room Air BMI result Body Mass Index 28.9 General: Alert, Not in Distress Skin: No rash, warm HEENT: Atraumatic, No Exudate or Pharyngeal Erythema Resp: Normal Breath sounds bilaterally Cardio: Regular rate and Rhythm, Normal S1, S2 ABD: Abd soft, non tender, no guarding or rebound. Normal Bowel sounds. : No cva tenderness Neuro: Alert, oriented x4, PERRL Strenght 5/5 on all extremities Sensation is preserved in both lower and upper extremities Index to nose: normal Cranial Nerves II-XII grossly intact No dysarthria, or aphasia No neglet. Visual cho are normal bilaterally Psych: Cooperative, NO SI Course Course Course Narrative: Patient's serology showed positivity for C diff. Discussed with hospitalist. We will admit. Hemodynamically stable Medications Administered Generic Name Dose Route Start Last Admin Trade Name Freq PRN Reason Stop Dose Admin Potassium Chloride 10 meq in 100 mls @ 100 mls/hr 11/01/23 16:45 11/01/23 17:50 Potassium Chloride/H20 IV 11/01/23 20:44 100 mls/hr Q1H MILI Administration Discontinued Medications Generic Name Dose Route Start Last Admin Trade Name Freq PRN Reason Stop Dose Admin Magnesium Sulfate/Dextrose 1 gm in 100 mls @ 100 mls/hr 11/01/23 16:32 11/01/23 17:51 Magnesium Sulfate/D5w IV 11/01/23 17:31 Infused ONCE ONE Infusion Potassium Chloride 40 meq 11/01/23 16:32 11/01/23 16:50 Potassium Chloride Packet 20 Meq Packet PO 11/01/23 16:33 40 meq ONCE ONE Administration Medical Decision Making Medical Decision Making [facility] Narrative: Patient presented to the emergency room for hypokalemia in routine blood work. The patient was discharged a week ago with similar symptoms. Diarrhea has worsened since discharge Impression hypokalemia secondary to GI loss possible Clostridium Plan Replete potassium, IV fluids, IV magnesium C difftoxin Lab Data 11/01/23 14:25 11/01/23 14:25 Labs: Lab Results 11/01/23 11/01/23 Range/Units 14:25 16:48 WBC 9.8 (4.8-10.8) X10*3/uL RBC 4.09 L (4.20-5.50) X10*6/uL Hgb 12.9 (12.0-16.0) g/dl Hct 37.7 (37.0-47.0) % MCV 92.2 (80.0-98.0) fL MCH 31.5 (27.0-33.0) pg MCHC 34.2 (31.0-35.0) g/dl RDW 13.6 (11.0-16.0) % Plt Count 300 (160-400) X10*3/uL MPV 10.3 (9.4-12.3) fL Immature Gran % (Auto) 0.3 (0.0-0.4) % Neut % (Auto) 67.1 (45-73) % Lymph % (Auto) 18.7 L (20-40) % [place] % (Auto) 12.8 H (2-11) % Eos % (Auto) 0.8 (0-4) % Baso % (Auto) 0.3 (0-2) % Lymph # (Auto) 1.8 (1.2-4.9) X10*3/uL [place] # (Auto) 1.3 H (0.1-1.2) X10*3/uL Eos # (Auto) 0.1 (0.0-0.4) X10*3/uL Baso # (Auto) 0.0 (0.0-0.2) X10*3/uL Abs Immat Gran (auto) 0.03 (0.00-0.03) X10*3/uL Absolute Neuts (auto) 6.6 (2.0-8.3) x10*3/uL Absolute Nucleated RBC 0.000 (0.0-0.012) X10*3/uL Nucleated RBC % (auto) 0.0 (0.0-0.2) /100WBC Sodium 140 (135-145) mmol/L Potassium 2.6 L* (3.3-5.1) mmol/L Chloride 104 (96-108) mmol/L Carbon Dioxide 21 L (22-29) mmol/L Anion Gap 18 (12-20) BUN 18 H (9-16) mg/dL Creatinine 0.94 (0.5-1.4) mg/dL Estim Creat Clear Calc 43.6 Estimated GFR 57 Random Glucose 120 H (60-115) mg/dL Calcium 9.8 (8.4-10.2) mg/dL Magnesium 1.8 (1.6-2.6) mg/dL Lipase 8 (8-78) U/L C. difficile Tox B Gene POSITIVE A* (Negative) Discharge Plan Discharge Clinical Impression: C. difficile diarrhea, Acute hypokalemia, Diarrhea Patient Disposition: Admitted As Inpatient Prescriptions: No Action (DME) Ultra-Light Rollator Misc See Rx Instructions .Route Qty: 1 0RF Rx Instructions: As directed metoprolol tartrate 50 mg tablet 25 mg PO BID nystatin 100,000 unit/gram powder 1 appl topical TID PRN (Reason: Rash) cefuroxime axetil 250 mg Tablet 250 mg PO Q12H Qty: 5 0RF atorvastatin 80 mg tablet 80 mg PO BEDTIME amlodipine 5 mg tablet 5 mg PO DAILY trazodone 50 mg tablet 50 mg PO BEDTIME pantoprazole 40 mg tablet,delayed release (DR/EC) 40 mg PO DAILY@0630 losartan 50 mg tablet 50 mg PO DAILY hydrocortisone 2.5 % cream 1 appl topical BID PRN (Reason: Rash) clotrimazole 1 % cream 1 appl topical BID PRN (Reason: Rash) ujihprgtyvdl-guagrmgw-vwvpzz Tablet 1 tab PO DAILY Eliquis 5 mg tablet 5 mg PO BID melatonin 3 mg tablet 6 mg PO BEDTIME PRN (Reason: Sleep)
[2023-11-01] MEDS: Potassium Chloride Packet 20 MEQ PACKET 40 MEQ PO (16:50)
[2023-11-01] MEDS: Magnesium Sulfate/D5W 1 GM/100 ML PIGGYBACK IV (16:50)
[2023-11-01] MEDS: Potassium Chloride/H20 10 MEQ/100 ML PIGGYBACK 100 MEQ IV ×4 (17:50→21:44)
[2023-11-01 17:51] LABS: CDiff Gene PCR POSITIVE (Negative)
[2023-11-01 17:54] VITALS: BP 150/62; PULSE 98; RESP 16; TEMP 36.4; O2SAT 98
--- NOTE | 2023-11-01 18:10 | P.HPHOSP_ITS ---
History of Present Illness Date of Service: 11/01/23 Chief Complaint: Abnormal labs 83-year-old female patient with past medical history significant for paroxysmal atrial fibrillation on Eliquis, mood disorder, history of MCA stroke with residual right-sided weakness, essential hypertension who was recently discharged from [facility] on October 25 after requiring admission for diarrhea and UTI, C diff and stool test was negative, she was discharged home on Ceftin, upon discharge her diarrhea was improving up until 2 days ago when she started with worsening diarrhea ,, multiple episodes of dark colored stool with no blood, no associated fever chills, no abdominal cramps, this morning patient vomited breakfast, that prompted family to bring her to the hospital and also her routine labs showed low potassium of 2.6, magnesium of 1.8, normal renal function, in the ED patient treated with by mouth and IV potassium, stool for C diff positive, patient is being admitted to [facility] due to electrolyte abnormality with nausea, vomiting and decreased by mouth intake. Review of Systems 2 Review of Systems: General no headache, no dizziness no fever chills. CVS no chest pain, no palpitation. Respiratory no cough, no sob Gastrointestinal nausea vomiting and loose watery stools no urinary urgency, no frequency Skin no rash All other system reviewed and negative PMFSH Medical History History of malignant melanoma History of basal cell carcinoma History of dysplastic nevus Degenerative joint disease (DJD) of hip Low back pain radiating to left lower extremity History of squamous cell carcinoma Venous insufficiency (chronic) (peripheral) Diarrhea Hypertension Family History Father Throat cancer Mother Kidney failure Surgical History H/O breast biopsy Hx of colonoscopy Hx of cholecystectomy Hx of appendectomy Social History Household Members: Spouse and Children Housing: House Do you presently have visiting nurse or other home services: Yes Alcohol intake: current Alcohol intake frequency: holidays/special occasions only Alcohol type: wine Patient Tobacco Use Status: Never used Tobacco Smoked in Last 30 Days: No Use of substances other than those prescribed or required for medical reasons: No Advance Directives: Yes Advance Directives Information Provided: No Advance Directives on File: No service: No Meds Allergies Allergy/AdvReac Type Severity Reaction Status Date / Time codeine Allergy Unknown rash Verified 11/01/23 13:54 Penicillins AdvReac Hives Verified 11/01/23 13:54 terbinafine [From Lamisil] AdvReac Hives Verified 11/01/23 13:54 Active Medications: Current Medications Acetaminophen (Acetaminophen 325 Mg Tablet) 650 mg PO Q6H PRN PRN Reason: Pain, Mild (Pain Scale 1-3) Potassium Chloride (Potassium Chloride/H20) 10 meq in 100 mls @ 100 mls/hr IV Q1H MILI Stop: 11/01/23 20:44 Last Admin: 11/01/23 17:50 Dose: 100 mls/hr Potassium Cl/Dextrose/Lact Ringer's (Kcl 20 Meq In 5 % Dex/Lact Rin) 20 meq in 1,000 mls @ 100 mls/hr IVCONT .Q10H MILI Melatonin (Melatonin 3 Mg Tablet) 6 mg PO BEDTIME PRN PRN Reason: Insomnia Ondansetron HCl (Ondansetron Hcl 4 Mg/2 Ml Vial) 4 mg IVPUSH Q8H PRN PRN Reason: Nausea and Vomiting Sodium Chloride (0.9 % Sodium Chloride Flush 3 Ml Syringe) 3 ml IVFLUSH QSHIFT [facility] Home Medications Medication Instructions Recorded Confirmed Last Taken Type amlodipine 5 mg tablet 5 mg PO DAILY 10/01/23 10/22/23 10/21/23 History atorvastatin 80 mg tablet 80 mg PO BEDTIME 10/01/23 10/22/23 10/21/23 History clotrimazole 1 % topical cream 1 appl topical BID PRN Rash 10/01/23 10/22/23 Unknown History hydrocortisone 2.5 % topical cream 1 appl topical BID PRN Rash 10/01/23 10/22/23 Unknown History losartan 50 mg tablet 50 mg PO DAILY 10/01/23 10/22/23 10/21/23 History wejjygskmclw-ytddclhn-aowejo tablet 1 tab PO DAILY 10/01/23 10/22/23 10/21/23 History pantoprazole 40 mg tablet,delayed 40 mg PO DAILY@0630 10/01/23 10/22/23 10/21/23 History release trazodone 50 mg tablet 50 mg PO BEDTIME 10/01/23 10/22/23 10/21/23 History apixaban 5 mg tablet (Eliquis) 5 mg PO BID 10/10/23 10/22/23 10/21/23 History melatonin 3 mg tablet 6 mg PO BEDTIME PRN Sleep 10/10/23 10/22/23 Unknown History metoprolol tartrate 50 mg tablet 25 mg PO BID 10/21/23 10/22/23 10/21/23 History nystatin 100,000 unit/gram topical 1 appl topical TID PRN Rash 10/21/23 10/22/23 Unknown History powder Physical Exam 2 Vital Signs and Narrative: Vital Signs: Last Vital Signs Temp 97.5 F 11/01/23 17:54 Pulse 98 11/01/23 17:54 Resp 16 11/01/23 17:54 BP 150/62 H 11/01/23 17:54 Pulse Ox 98 11/01/23 17:54 O2 Del Method Room Air 11/01/23 17:54 BMI result Body Mass Index 28.9 Const: Other: General awake alert x3,resting comfortably in no acute distress. Anicteric sclera Neck supple, no JVD. CVS regular rate rhythm, Respiratory lungs clear to auscultation, no respiratory distress, no wheeze, no rhonchi. Gastrointestinal abdomen soft, non tender, bowel sounds audible,no guarding , no rigidity. Extremities no edema. Neuro right hemiparesis, alert oriented x3, Skin no rash Psych appropriate affect Results Labs 11/01/23 14:25 11/01/23 14:25 Labs: Laboratory Results - last 24 hr 11/01/23 11/01/23 14:25 16:48 MCV 92.2 MCH 31.5 MCHC 34.2 RDW 13.6 Plt Count 300 MPV 10.3 Immature Gran % (Auto) 0.3 Neut % (Auto) 67.1 Lymph % (Auto) 18.7 L [place] % (Auto) 12.8 H Eos % (Auto) 0.8 Baso % (Auto) 0.3 Lymph # (Auto) 1.8 [place] # (Auto) 1.3 H Eos # (Auto) 0.1 Baso # (Auto) 0.0 Abs Immat Gran (auto) 0.03 Absolute Neuts (auto) 6.6 Absolute Nucleated RBC 0.000 Nucleated RBC % (auto) 0.0 Anion Gap 18 Estim Creat Clear Calc 43.6 Estimated GFR 57 Random Glucose 120 H Calcium 9.8 Magnesium 1.8 Lipase 8 C. difficile Tox B Gene POSITIVE A* Assessment and Plan (1) C. difficile diarrhea: Status: Acute (2) Acute hypokalemia: Status: Acute (3) HLD (hyperlipidemia): Status: Acute (4) Hypertension: Status: Acute (5) Atrial fibrillation: Status: Acute Plan 83-year-old female patient with past medical history of paroxysmal atrial fibrillation on Eliquis, mood disorder, history of MCA stroke with right sided weakness, essential hypertension recently discharged from [facility] on 10/25 after being treated for diarrhea, electrolyte abnormalities and UTI presented to [facility] with recurrent bout of diarrhea of 2 days' duration associated with vomiting and diagnosed to have C diff infection with electrolyte abnormalities. # acute hypokalemia likely due to GI loss will aggressively replete and follow labs # C diff colitis causing nausea, vomiting, diarrhea, will place on vancomycin, IV fluids, likely due to recent use of antibiotics, supportive care. #. Paroxysmal atrial fibrillation: On metoprolol for rate control and Eliquis #. Mood disorder: Continue home mood stabilizers #. History of CVA: With residual right-sided weakness and dysarthria continue statins and Eliquis #. Essential hypertension: Continue home antihypertensives, follow BP DVT prophylaxis: Eliquis Full code In my clinical judgment patient need to night inpatient hospitalization for management of diarrhea related to C diff and electrolyte abnormalities. Quality Stroke Does the patient have a stroke diagnosis?: No VTE Prior VTE?: No VTE Risk Level:: Medical - moderate - high VTE Device Contraindication: Treatment Not Indicated VTE Drug Contraindication: N/A - Med Ordered
[2023-11-01] MEDS: vancomycin HCL 125 MG CAPSULE PO (18:27)
[2023-11-01 18:29] LABS: CDIFF Internal ctrl Dots and bkg OK (V); CDiff Toxin Positive (Negative)
--- NOTE | 2023-11-01 18:29 | PHA.MEDREC ---
Pharmacy Consult ? Medication Reconciliation Pharmacy has completed the medication reconciliation. Patient just discharged from [facility] one week prior. Utilized discharge summary for med rec. Sherri North, [employer]
--- NOTE | 2023-11-01 19:20 | PC.NURSE ---
Pt cleansed of fecal incontinence.
[2023-11-01 20:07] VITALS: BP 133/68; PULSE 88; RESP 20; TEMP 36.9; O2SAT 97
[2023-11-01] MEDS: traZODone HCL 50 MG TABLET PO (20:08)
[2023-11-01] MEDS: Metoprolol Tartrate 25 MG TABLET PO (20:08)
[2023-11-01] MEDS: Apixaban 5 MG TABLET PO (20:08)
[2023-11-01] MEDS: KCl 20 mEq in 5 % Dex/Lact Rin 20 MEQ/1,000 ML IV.SOLN 100 MEQ IVCONT (22:52)
[2023-11-01 23:06] VITALS: BP 129/61; PULSE 87; RESP 16; TEMP 36.9; O2SAT 99
--- NOTE | 2023-11-01 23:13 | PC.NURSE ---
Pt cleansed of fecal incontinence. Denies any other needs at this time.
[2023-11-02 01:11] VITALS: BMI 26.0
[2023-11-02] MEDS: vancomycin HCL 125 MG CAPSULE PO ×4 (01:23→18:23)
[2023-11-02 01:25] VITALS: BP 145/65; PULSE 80; RESP 16; TEMP 36.1; O2SAT 96
[2023-11-02 07:04] VITALS: BP 144/63; PULSE 70; RESP 16; TEMP 36.6; O2SAT 96
[2023-11-02] MEDS: Apixaban 5 MG TABLET PO ×2 (08:40→20:20)
[2023-11-02] MEDS: Losartan Potassium 50 MG TABLET PO (08:40)
[2023-11-02] MEDS: Metoprolol Tartrate 25 MG TABLET PO ×2 (08:40→20:20)
[2023-11-02] MEDS: amLODIPine Besylate 5 MG TABLET PO (08:40)
[2023-11-02 08:41] LABS: Hematocrit 33.2 % (37.0-47.0); Hemoglobin 11.3 g/dl (12.0-16.0); Mean Corpuscular Hemoglobin 31.5 pg (27.0-33.0); Mean Corpuscular Volume 92.5 fL (80.0-98.0); Mean Platelet Volume 10.5 fL (9.4-12.3); Platelet Count 255 X10*3/uL (160-400); Red Blood Count 3.59 X10*6/uL (4.20-5.50); Red Cell Distribution Width 13.4 % (11.0-16.0); White Blood Count 6.6 X10*3/uL (4.8-10.8)
[2023-11-02 09:14] LABS: Anion Gap 10 (12-20); Blood Urea Nitrogen 13 mg/dL (9-16); Calcium 8.8 mg/dL (8.4-10.2); Carbon Dioxide 25 mmol/L (22-29); Chloride 108 mmol/L (96-108); Creatinine Clr Calc Pharmacy 57.5; Estimated Glomerular Filt Rate > 60; Glucose Random 138 mg/dL (60-115); Potassium 2.7 mmol/L (3.3-5.1); Sodium 140 mmol/L (135-145)
[2023-11-02] MEDS: KCl 20 mEq in 5 % Dex/Lact Rin 20 MEQ/1,000 ML IV.SOLN 100 MEQ IVCONT ×2 (09:48→20:20)
[2023-11-02] MEDS: Potassium Chloride ER 20 MEQ TAB.ER.PRT 40 MEQ PO ×2 (10:19→13:13)
--- NOTE | 2023-11-02 12:02 | MHC.CM.PN ---
IMM 11/02/23, Pt lives with spouse and has help from both of her sons. She is active with [facility], HCP in place, copy requested. CM to follow and assist with DC planning.
--- NOTE | 2023-11-02 12:23 | P.PNIM_ITS ---
Subjective Subjective Date of Service: 11/02/23 Interval History: Feeling better this morning, had 1 loose bowel movement, tolerated breakfast with no nausea, vomiting ,or abdominal cramping, no fevers, no chills, no acute issues overnight. and son at bedside. Review of Systems All other system reviewed and negative Physical Exam 2 Vital Signs: Vital Signs: Last Vital Signs Temp 97.8 F 11/02/23 07:04 Pulse 70 11/02/23 07:04 Resp 16 11/02/23 07:04 BP 144/63 H 11/02/23 07:04 Pulse Ox 96 11/02/23 07:04 O2 Del Method Room Air 11/02/23 07:04 BMI result Body Mass Index 26.0 Const: Other: General awake alert x3,resting comfortably in no acute distress. Anicteric sclera Neck supple, no JVD. CVS regular rate rhythm, Respiratory lungs clear to auscultation, no respiratory distress, no wheeze, no rhonchi. Gastrointestinal abdomen soft, non tender, bowel sounds audible,no guarding , no rigidity. Extremities no edema. Neuro right hemiparesis, alert oriented x3, Skin no rash Psych appropriate affect Objective Data Active Medications Acetaminophen (Acetaminophen 325 Mg Tablet) 650 mg PO Q6H PRN PRN Reason: Pain, Mild (Pain Scale 1-3) Amlodipine Besylate (Amlodipine Besylate 5 Mg Tablet) 5 mg PO DAILY [facility]; Protocol Last Admin: 11/02/23 08:40 Dose: 5 mg Documented By: ZOEY Apixaban (Apixaban 5 Mg Tablet) 5 mg PO BID [facility] Last Admin: 11/02/23 08:40 Dose: 5 mg Documented By: ZOEY Potassium Cl/Dextrose/Lact Ringer's (Kcl 20 Meq In 5 % Dex/Lact Rin) 20 meq in 1,000 mls @ 100 mls/hr IVCONT .Q10H [facility] Last Admin: 11/02/23 09:48 Dose: 100 mls/hr Documented By: ZOEY Losartan Potassium (Losartan Potassium 50 Mg Tablet) 50 mg PO DAILY [facility]; Protocol Last Admin: 11/02/23 08:40 Dose: 50 mg Documented By: ZOEY Melatonin (Melatonin 3 Mg Tablet) 6 mg PO BEDTIME PRN PRN Reason: Insomnia Metoprolol Tartrate (Metoprolol Tartrate 25 Mg Tablet) 25 mg PO BID MILI; Protocol Last Admin: 11/02/23 08:40 Dose: 25 mg Documented By: ZOEY Nystatin (Nystatin Powder 15 Gm Bottle) 1 appl TOPICAL TID PRN; Protocol PRN Reason: Rash Ondansetron HCl (Ondansetron Hcl 4 Mg/2 Ml Vial) 4 mg IVPUSH Q8H PRN PRN Reason: Nausea and Vomiting Sodium Chloride (0.9 % Sodium Chloride Flush 3 Ml Syringe) 3 ml IVFLUSH QSHIFT [facility] Last Admin: 11/02/23 08:37 Dose: Not Given Documented By: ZOEY Non-Admin Reason: IV Running Trazodone HCl (Trazodone Hcl 50 Mg Tablet) 50 mg PO BEDTIME [facility] Last Admin: 11/01/23 20:08 Dose: 50 mg Documented By: YUNIEL Vancomycin HCl (Vancomycin Hcl 125 Mg Capsule) 125 mg PO Q6H [facility] Last Admin: 11/02/23 06:35 Dose: 125 mg Documented By: ISHAANQC Labs 11/02/23 08:11 11/02/23 08:11 Labs: Laboratory Results - last 24 hr 11/01/23 11/01/23 11/02/23 14:25 16:48 08:11 MCV 92.2 92.5 MCH 31.5 31.5 MCHC 34.2 34.0 RDW 13.6 13.4 Plt Count 300 255 MPV 10.3 10.5 Immature Gran % (Auto) 0.3 Neut % (Auto) 67.1 Lymph % (Auto) 18.7 L [place] % (Auto) 12.8 H Eos % (Auto) 0.8 Baso % (Auto) 0.3 Lymph # (Auto) 1.8 [place] # (Auto) 1.3 H Eos # (Auto) 0.1 Baso # (Auto) 0.0 Abs Immat Gran (auto) 0.03 Absolute Neuts (auto) 6.6 Absolute Nucleated RBC 0.000 0.000 Nucleated RBC % (auto) 0.0 0.0 Anion Gap 18 10 L Estim Creat Clear Calc 43.6 57.5 Estimated GFR 57 > 60 Random Glucose 120 H 138 H Calcium 9.8 8.8 D Magnesium 1.8 Lipase 8 C. difficile Tox B Gene POSITIVE A* C. difficile Toxin A&B Positive A* C. difficile Interpret SEE NOTE Assessment and Plan (1) C. difficile diarrhea: Status: Acute Plan 83-year-old female patient with past medical history of paroxysmal atrial fibrillation on Eliquis, mood disorder, history of MCA stroke with right sided weakness, essential hypertension recently discharged from [facility] on 10/25 after being treated for diarrhea, electrolyte abnormalities and UTI presented to [facility] with recurrent bout of diarrhea of 2 days' duration associated with vomiting and diagnosed to have C diff infection with electrolyte abnormalities. # acute hypokalemia potassium remains low at 2.7, likely due to GI loss will aggressively replete and follow labs. # acute C diff colitis on vancomycin D2, persistent diarrhea, continue IV fluids, likely due to recent use of antibiotics, supportive care. #. Paroxysmal atrial fibrillation: On metoprolol for rate control and Eliquis #. Mood disorder: Continue home mood stabilizers #. History of CVA: residual right-sided weakness and dysarthria continue statins and Eliquis #. Essential hypertension: Continue home antihypertensives, losartan 50 mg, amlodipine 5 and metoprolol 25 mg b.i.d. follow BP DVT prophylaxis: Eliquis Full code In my clinical judgment patient need continued inpatient hospitalization for management of diarrhea related to C diff and for close monitoring and replacement of electrolyte abnormalities. Quality Stroke Does the patient have a stroke diagnosis?: No VTE Prior VTE?: No VTE Risk Level:: Medical - moderate - high VTE Device Contraindication: Treatment Not Indicated VTE Drug Contraindication: N/A - Med Ordered
[2023-11-02 15:34] VITALS: BP 118/57; PULSE 66; RESP 16; TEMP 36.3; O2SAT 99
[2023-11-02 19:28] VITALS: BP 152/70; PULSE 84; RESP 18; TEMP 36.8; O2SAT 98
[2023-11-02] MEDS: Melatonin 3 MG TABLET 6 MG PO (20:20)
[2023-11-02] MEDS: traZODone HCL 50 MG TABLET PO (20:20)
[2023-11-03 03:53] VITALS: BP 130/60; PULSE 85; RESP 17; TEMP 36.4; O2SAT 95
[2023-11-03] MEDS: vancomycin HCL 125 MG CAPSULE PO ×3 (06:09→11:46)
[2023-11-03] MEDS: KCl 20 mEq in 5 % Dex/Lact Rin 20 MEQ/1,000 ML IV.SOLN 100 MEQ IVCONT (06:09)
[2023-11-03 07:22] VITALS: BP 156/68; PULSE 74; RESP 18; TEMP 36; O2SAT 97
[2023-11-03 08:06] LABS: Anion Gap 11 (12-20); Blood Urea Nitrogen 7 mg/dL (9-16); Calcium 8.9 mg/dL (8.4-10.2); Carbon Dioxide 24 mmol/L (22-29); Chloride 110 mmol/L (96-108); Creatinine Clr Calc Pharmacy 55.1; Estimated Glomerular Filt Rate > 60; Glucose Random 133 mg/dL (60-115); Potassium 3.2 mmol/L (3.3-5.1); Sodium 142 mmol/L (135-145)
[2023-11-03] MEDS: amLODIPine Besylate 5 MG TABLET PO (09:10)
[2023-11-03] MEDS: Metoprolol Tartrate 25 MG TABLET PO (09:10)
[2023-11-03] MEDS: Apixaban 5 MG TABLET PO (09:10)
[2023-11-03] MEDS: Potassium Chloride ER 20 MEQ TAB.ER.PRT 40 MEQ PO (11:46)
[2023-11-03 13:19] VITALS: BP 156/68; PULSE 74; O2SAT 97
[2023-11-03 13:58] LABS: Anion Gap 12 (12-20); Blood Urea Nitrogen 5 mg/dL (9-16); Calcium 9.4 mg/dL (8.4-10.2); Carbon Dioxide 24 mmol/L (22-29); Chloride 106 mmol/L (96-108); Creatinine Clr Calc Pharmacy 54.3; Estimated Glomerular Filt Rate > 60; Glucose Random 120 mg/dL (60-115); Potassium 3.4 mmol/L (3.3-5.1); Sodium 139 mmol/L (135-145)
--- NOTE | 2023-11-03 14:47 | PM.DS ---
DS: Providers Provider Date of Service: 11/03/23 Date of admission: 11/01/23 18:06 Primary care physician: Jonna Soto MD DS: Diagnosis Discharge Diagnosis (1) C. difficile diarrhea: Status: Acute DS: Summary Hospital Course Hospital Course: History of presenting illness: Date of Service: 11/01/23 Chief Complaint: Abnormal labs 83-year-old female patient with past medical history significant for paroxysmal atrial fibrillation on Eliquis, mood disorder, history of MCA stroke with residual right-sided weakness, essential hypertension who was recently discharged from [facility] on October 25 after requiring admission for diarrhea and UTI, C diff and stool test was negative, she was discharged home on Ceftin, upon discharge her diarrhea was improving up until 2 days ago when she started with worsening diarrhea ,, multiple episodes of dark colored stool with no blood, no associated fever chills, no abdominal cramps, this morning patient vomited breakfast, that prompted family to bring her to the hospital and also her routine labs showed low potassium of 2.6, magnesium of 1.8, normal renal function, in the ED patient treated with by mouth and IV potassium, stool for C diff positive, patient is being admitted to [facility] due to electrolyte abnormality with nausea, vomiting and decreased by mouth intake. Hospital course: 83-year-old female patient with past medical history of paroxysmal atrial fibrillation on Eliquis, mood disorder, history of MCA stroke with right sided weakness, essential hypertension recently discharged from [facility] on 10/25 after being treated for diarrhea, electrolyte abnormalities and UTI presented to [facility] with recurrent bout of diarrhea of 2 days' duration associated with vomiting and diagnosed to have acute C diff infection with electrolyte abnormalities, patient admitted to medical floor and placed on vancomycin 125 mg q.i.d. and IV fluids, patient had no fevers and had normal WBC count, patient responded well to above treatment diarrhea slowing down, therefore will discharge home on 8 more days of vancomycin for total 10 day course, recommend to follow low fiber/bland diet and drink fluids. Patient also noted to have hypokalemia treated aggressively with IV and oral potassium replacement potassium improved to 3.4, will discharge home on potassium 40 mEq daily for 4 more days and recommend to check labs on October 2021, patient evaluated by Physical therapy and they recommend to continue home PT and OT #. Paroxysmal atrial fibrillation: Recommend to continue metoprolol and Eliquis. #. Mood disorder: Continue home mood stabilizers #. History of CVA: residual right-sided weakness and dysarthria continue statins and Eliquis #. Essential hypertension: Continue home antihypertensives, losartan 50 mg, amlodipine 5 and metoprolol bid Time Attestation Discharge coordination time: Greater than 30 minutes Quality: Safe Use of Opioids Does Pt have an Active Cancer Diagnosis on the Problem List?: No Quality: Stroke Does the patient have a stroke diagnosis?: No Physical Exam Vital Signs: Vital Signs: Last Vital Signs Temp 96.8 F 11/03/23 07:22 Pulse 74 11/03/23 13:19 Resp 18 11/03/23 07:22 BP 156/68 H 11/03/23 13:19 Pulse Ox 97 11/03/23 13:19 O2 Del Method Room Air 11/03/23 07:22 BMI result Body Mass Index 26.0 Const: Other: General awake alert x3,resting comfortably in no acute distress. Anicteric sclera Neck supple, no JVD. CVS regular rate rhythm, Respiratory lungs clear to auscultation, no respiratory distress, no wheeze, no rhonchi. Gastrointestinal abdomen soft, non tender, bowel sounds audible,no guarding , no rigidity. Extremities no edema. Neuro right hemiparesis, alert oriented x3, Skin no rash Psych appropriate affect DS: Data Data Completed and Pending Labs on day of discharge: Laboratory Results - last 24 hr 11/03/23 11/03/23 07:12 13:26 Hold Purple Top SEE NOTE Sodium 142 139 Potassium 3.2 L 3.4 Chloride 110 H 106 Carbon Dioxide 24 24 Anion Gap 11 L 12 BUN 7 L 5 L Creatinine 0.71 0.72 Estim Creat Clear Calc 55.1 54.3 Estimated GFR > 60 > 60 Random Glucose 133 H 120 H Calcium 8.9 9.4 Discharge Plan Discharge Anticipated Discharge Date/Time: 11/03/23 14:47 Patient Disposition: Home Health Service Discharge Diagnosis: Acute C diff colitis Hypokalemia Referrals: [facility] [Outside] - 1 Week Jonna Dillard MD [Primary Care Provider] - 1 Week Discharge Medications: New vancomycin 125 mg Capsule 125 mg PO Q6H Qty: 32 0RF potassium chloride 20 mEq tablet extended release 40 meq PO DAILY Qty: 10 0RF Rx Instructions: take for 4 days than check labs Continued (DME) Ultra-Light Rollator Misc See Rx Instructions .Route Qty: 1 0RF Rx Instructions: As directed metoprolol tartrate 50 mg tablet 25 mg PO BID nystatin 100,000 unit/gram powder 1 appl topical TID PRN (Reason: Rash) atorvastatin 80 mg tablet 80 mg PO BEDTIME amlodipine 5 mg tablet 5 mg PO DAILY trazodone 50 mg tablet 50 mg PO BEDTIME pantoprazole 40 mg tablet,delayed release (DR/EC) 40 mg PO DAILY@0630 losartan 50 mg tablet 50 mg PO DAILY hydrocortisone 2.5 % cream 1 appl topical BID PRN (Reason: Rash) clotrimazole 1 % cream 1 appl topical BID PRN (Reason: Rash) [id number] Tablet 1 tab PO DAILY Eliquis 5 mg tablet 5 mg PO BID melatonin 3 mg tablet 6 mg PO BEDTIME PRN (Reason: Sleep) Discharge Orders: Discharge Order (Routine); Ordered 11/03/23 Ordered By: Nolberto Mtz Diet: low fiber diet Activity on Discharge: As tolerated Stand Alone Forms: Patient Portal Discharge page Other Ambulatory Orders: Basic Metabolic Panel (Routine) Timeframe: 20231108 Facility: [facility] - Location: Laboratory Ordered By: Nolberto Mtz Care Plan Goals: C diff colitis take vancomycin for 8 more days Follow bland, low-fiber diet with rice, pudding,banana, toast and Tea diet avoid high fiber fruits and salads,drink fluids Check potassium level on 11/08 Health Concerns: Take all home medications as before Plan of Treatment: Follow-up with primary care physician Assessment: As above
--- NOTE | 2023-11-03 14:55 | MHC.CM.PN ---
Pt has been medically cleared for DC, she will go home via family transport and resume her services from [facility].
== END 2023-11-03 15:12 | disposition home health service (06) | DRG 372 ==
LOC: HO.ED 18:00 → HO.EDOVER 18:11 → HO.S3 23:59
PROVIDERS: Physician Assistant Medical; Admitting Provider Hospitalist; Emergency Provider Student in an Organized Health Care Education/Training Program; PCP Internal Medicine; Visit Provider Hospitalist
DX: A04.72 Enterocolitis due to Clostridium difficile, not specified as recurrent (principal); I69.351 Hemiplegia and hemiparesis following cerebral infarction affecting right dominant side; I48.0 Paroxysmal atrial fibrillation; F39 Unspecified mood [affective] disorder; I10 Essential (primary) hypertension; E87.6 Hypokalemia; Z88.0 Allergy status to penicillin; Z79.01 Long term (current) use of anticoagulants; I69.322 Dysarthria following cerebral infarction; Z79.899 Other long term (current) drug therapy
CPT/HCPCS: 36415; 70551; 80048; 83690; 83735; 85025; 85027; 87324; 87493; 93005; 97162; 99285; J3475; J3480

== ENCOUNTER → 2023-11-01 14:07 | Outpatient (BNV) | payer MEDICARE, SELFPAY | PROVIDERS: Emergency Provider Student in an Organized Health Care Education/Training Program; PCP Internal Medicine; Visit Provider Internal Medicine | DX: I48.91 Unspecified atrial fibrillation (principal) | CPT/HCPCS: 93010 ==

== ENCOUNTER → 2023-11-01 18:06 | Outpatient (BNV) | payer MEDICARE, SELFPAY | PROVIDERS: Admitting Provider Hospitalist; Emergency Provider Student in an Organized Health Care Education/Training Program; PCP Internal Medicine; Visit Provider Hospitalist | DX: A04.72 Enterocolitis due to Clostridium difficile, not specified as recurrent (principal) | CPT/HCPCS: 99223; 99233; 99239 ==

== ENCOUNTER 2023-11-08 09:19 | Outpatient (REF) | payer MEDICARE, SELFPAY ==
[2023-11-08 11:25] LABS: Anion Gap 12 (12-20); Blood Urea Nitrogen 13 mg/dL (9-16); Calcium 9.4 mg/dL (8.4-10.2); Carbon Dioxide 26 mmol/L (22-29); Chloride 106 mmol/L (96-108); Estimated Glomerular Filt Rate > 60; Glucose Random 103 mg/dL (60-115); Potassium 3.2 mmol/L (3.3-5.1); Sodium 141 mmol/L (135-145)
== END 2023-11-08 09:20 | disposition home or self-care (01) ==
LOC: HO.LAB 09:19
PROVIDERS: PCP Internal Medicine; Visit Provider Hospitalist
DX: E87.6 Hypokalemia (principal)
CPT/HCPCS: 36415; 80048

== ENCOUNTER 2023-12-08 09:10 | Inpatient (IN) | payer MEDICARE, SELFPAY ==
[2023-12-08] VITALS (7 sets, daily range): BP systolic 112–144; BP diastolic 47–70; PULSE 60–88; RESP 12–18; TEMP 36.4–37.1; O2SAT 97–99; BMI 25.7
--- NOTE | ~2023-12-08 | XR_ITS ---
EXAMINATION: XR CHEST CLINICAL INFORMATION: Weakness COMPARISON: None available. TECHNIQUE: 2 views of the chest were obtained. FINDINGS: Slight elevation the right hemidiaphragm. Very slight bronchial thickening which can be seen in the setting of infectious/inflammatory etiology. No pneumothorax. Trachea is midline. Cardiac mediastinal silhouette is enlarged. Aorta demonstrates atherosclerotic calcifications. No large pleural effusion. Degenerative changes of the thoracolumbar spine. Soft tissues are unremarkable. XR/XR chest 2V IMPRESSION: 1. Slight elevation the right hemidiaphragm. 2. Very slight bronchial thickening which can be seen in the setting of infectious/inflammatory etiology.
--- NOTE | 2023-12-08 09:14 | ECG_ITS ---
Test Reason : SYNCOPE Blood Pressure : / mmHG Vent. Rate : 069 BPM Atrial Rate : 000 BPM P-R Int : 000 ms QRS Dur : 102 ms QT Int : 410 ms P-R-T Axes : 000 016 013 degrees QTc Int : [address] & T wave abnormality, consider inferior ischemia Abnormal ECG When compared with ECG of 01-NOV-2023 14:16, No significant change was found Referred By: Generic ED Physician Electronically Signed By:NIRAV VIZCARRA MD
[2023-12-08 10:00] LABS: MANUAL DIFF FLAG NO
[2023-12-08 10:02] LABS: Basophils Absolute Auto 0.1 X10*3/uL (0.0-0.2); Basophils Percent Auto 0.3 % (0-2); Eosinophils Absolute Auto 0.1 X10*3/uL (0.0-0.4); Eosinophils Percent Auto 0.3 % (0-4); Hematocrit 42.4 % (37.0-47.0); Hemoglobin 14.7 g/dl (12.0-16.0); Imm Gran Abs Auto 0.06 X10*3/uL (0.00-0.03); Imm Gran Pct Auto 0.3 % (0.0-0.4); Lymphocytes Absolute Auto 1.4 X10*3/uL (1.2-4.9); Mean Corpuscular HGB Conc 34.7 g/dl (31.0-35.0); Mean Corpuscular Hemoglobin 31.7 pg (27.0-33.0); Mean Corpuscular Volume 91.6 fL (80.0-98.0); Mean Platelet Volume 10.3 fL (9.4-12.3); Monocytes Absolute Auto 0.6 X10*3/uL (0.1-1.2); Monocytes Percent Auto 3.5 % (2-11); Neutrophils Absolute Auto 15.1 x10*3/uL (2.0-8.3); Neutrophils Percent Auto 87.6 % (45-73); Platelet Count 310 X10*3/uL (160-400); Red Blood Count 4.63 X10*6/uL (4.20-5.50); Red Cell Distribution Width 13.4 % (11.0-16.0); White Blood Count 17.2 X10*3/uL (4.8-10.8)
[2023-12-08 10:19] LABS: Alanine Aminotransferase 32 U/L (0-31); Albumin Level 4.6 g/dL (3.5-5.0); Alkaline Phosphatase 102 U/L (39-117); Anion Gap 19 (12-20); Aspartate Amino Transferase 36 U/L (5-31); Bilirubin Total 0.7 mg/dL (0.0-1.0); Blood Urea Nitrogen 15 mg/dL (9-16); Calcium 10.2 mg/dL (8.4-10.2); Carbon Dioxide 20 mmol/L (22-29); Chloride 107 mmol/L (96-108); Creatinine Clr Calc Pharmacy 41.6; Estimated Glomerular Filt Rate 55; Glucose Random 132 mg/dL (60-115); Potassium 3.5 mmol/L (3.3-5.1); Sodium 142 mmol/L (135-145); Total Protein 8.4 g/dL (6.5-8.0)
[2023-12-08 10:25] LABS: Troponin-I High Sensitivity 7.2 ng/L (<3.5-17.0)
--- NOTE | 2023-12-08 11:35 | ED.GENADULT ---
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 Daughter at bedside states that the patient had a huge bout of diarrhea while in the bathroom. She suddenly felt weak, began vomiting, and was unresponsive for approximately 20 seconds. Syncopal episode was witnessed by daughter. No head strike. EMS was called and patient was transported to ED. Patient denies preceding symptoms prior to syncopal episode. Daughter states that she has chronic diarrhea at baseline and has had extensive tests to evaluate this in the past with unremarkable work up. Notes that she did have C diff approximately 1 month ago and received treatment for this. At present, patient has no complaints. She is lying in bed and is unable to decipher is she still feels weak. Denies headache, dizziness, fever, chills, chest pain, palpitations, SOB, dyspnea, wheezing, cough, N/V, dysuria, hematuria, LE edema/pain. She was seen at [facility] ED approximately 1 week ago and was admitted to the hospital for acute hypokalemia secondary to GI last along with C diff. She was treated with antibiotics and potassium was repleted. She was discharged home on vancomycin and potassium supplementation. She has completed 5 days of PO antibiotics. Related Data Home Medications Medication Instructions Recorded Confirmed amlodipine 5 mg tablet 5 mg PO DAILY 10/01/23 12/08/23 atorvastatin 80 mg tablet 80 mg PO BEDTIME 10/01/23 12/08/23 losartan 50 mg tablet 50 mg PO DAILY 10/01/23 12/08/23 [id number]-wdfrgfjv-[id number] tablet 1 tab PO DAILY 10/01/23 12/08/23 pantoprazole 40 mg tablet,delayed 40 mg PO DAILY@0630 10/01/23 12/08/23 release trazodone 50 mg tablet 50 mg PO BEDTIME 10/01/23 12/08/23 apixaban 5 mg tablet (Eliquis) 5 mg PO BID 10/10/23 12/08/23 melatonin 3 mg tablet 6 mg PO BEDTIME Sleep 10/10/23 12/08/23 metoprolol tartrate 50 mg tablet 25 mg PO BID 10/21/23 12/08/23 nystatin 100,000 unit/gram topical 1 appl topical TID PRN Rash 10/21/23 12/08/23 powder cranberry fruit 450 mg tablet 450 mg PO BID 12/08/23 12/08/23 (cranberry) ketoconazole 2 % topical cream 1 appl topical BID PRN Rash 12/08/23 12/08/23 zinc gluconate 50 mg tablet 50 mg PO DAILY 12/08/23 12/08/23 Previous Rx's Medication Instructions Recorded chris (Ultra-Light Rollator misc) #1 ea 08/22/21 potassium chloride 20 mEq 40 meq (2 x 20 mEq) PO DAILY #10 11/03/23 tablet,extended release tabs Allergies Allergy/AdvReac Type Severity Reaction Status Date / Time codeine Allergy Unknown rash Verified 11/01/23 13:54 Penicillins AdvReac Hives Verified 11/01/23 13:54 terbinafine [From Lamisil] AdvReac Hives Verified 11/01/23 13:54 Review of Systems Review of Systems: Constitutional: No fever, chills, fatigue, night sweats, weight changes, +generalized weakness ENT/Mouth: No ear pain, hearing loss, nasal congestion, sinus pain, rhinorrhea, sore throat Eyes: No eye pain, swelling, redness, vision changes, discharge Cardio: No chest pain, palpitations, CHAMBERLAIN, orthopnea, peripheral edema Pulm: No SOB, cough, sputum, wheezing, dyspnea, hemoptysis GI: No nausea, vomiting, hematemesis, abdominal pain, diarrhea, constipation, hematochezia, melena : No irregular bleeding, dysuria, frequency, urgency, hesitancy, hematuria, flank pain, urinary flow changes, urinary incontinence or retention MSK: No back pain, neck pain, joint pain, myalgias Skin: No lesions, rashes Neuro: No weakness, numbness, paresthesias, LOC, dizziness, headache Psych: No anxiety/panic, depression, SI/HI, AH/VH All other systems reviewed and are negative. PMFSH Past Medical History Attestation statement: The following information was validated with the patient. Source: old records reviewed and nursing notes reviewed Medical History HLD (hyperlipidemia) Atrial fibrillation History of malignant melanoma History of basal cell carcinoma History of dysplastic nevus Degenerative joint disease (DJD) of hip Low back pain radiating to left lower extremity History of squamous cell carcinoma Venous insufficiency (chronic) (peripheral) Diarrhea Hypertension Surgical History H/O breast biopsy Hx of colonoscopy Hx of cholecystectomy Hx of appendectomy Family History Family History Father Throat cancer Mother Kidney failure Social History Social History Household Members: Spouse Housing: House Alcohol intake: current Alcohol intake frequency: does not drink Alcohol type: wine Patient Tobacco Use Status: Never used Tobacco Smoked in Last 30 Days: No Use of substances other than those prescribed or required for medical reasons: No Currently Displaying Signs/Symptoms of Drug Intoxication Withdrawal: No Have you been hit, kicked, punched, or otherwise hurt by someone within the past year? If so, by whom?: No Do you feel safe in your current relationship?: Yes Is there a partner from a previous relationship who is making you feel unsafe now?: No Are you made to feel afraid or neglected: No Advance Directives: Yes Advance Directives on File: No Advance Directives Date on File: 11/02/23 Recently lost weight without trying: Yes How much weight loss: 2-13 pounds Eating poorly because of decreased appetite: Yes Nutrition screen score: 4 Patient : No : No Poor oral hygiene: No service: No Physical Exam ED Vital Signs: Vital Signs - 24 hr 12/08/23 11:03 12/08/23 12:44 12/08/23 14:24 Temperature 97.6 F Pulse Rate 63 70 79 Respiratory Rate 16 12 14 Blood Pressure 112/70 115/64 121/47 L Pulse Oximetry 99 99 98 Oxygen Delivery Method Room Air Room Air 12/08/23 19:55 Temperature 98.7 F Pulse Rate 81 Respiratory Rate 15 Blood Pressure 136/64 Pulse Oximetry 98 Oxygen Delivery Method Room Air BMI result Body Mass Index 25.7 Vital signs stable, afebrile Const General: cooperative, healthy appearing, comfortable and no acute distress Orientation/consciousness: patient oriented x3 Limitations: no limitations [facility] Head: Yes normal to inspection, Yes No palpable skull fracture present, Yes normocephalic and Yes atraumatic Eyes General: appearance normal, both eyes and all related structures Conjunctivae: conjunctivae normal Sclerae: sclerae normal Pupils: Equal, round and reactive pupils present Chest Chest palpation & inspection: normal inspection of the chest and normal palpation of entire chest wall Resp Effort & Inspection: normal respiratory effort and able to speak in complete sentences Auscultation: clear to auscultation bilaterally Cardio Other: + irregularly irregular Peripheral pulses: Peripheral pulses 2+ throughout GI Inspection: Yes normal to inspection Palpation (GI): Soft to palpation and nontender Skin General skin exam: no rashes or lesions noted Neuro Other: + residual facial droop with right sided deficits. mild dysarthria. General: patient oriented x3 Cranial nerves: Yes Equal, round and reactive pupils present Pupils: Normal pupillary reactivity/response: bilateral Extrem General: Yes normal to inspection Course Course Course Narrative: 1157-- CBC with leukocytosis to 17.2 with left shift > although patient has recent history of cdiff, there has been a huge bump in WBC since visit 1 week ago. This could be attributable to C diff with recent vomiting however will check for urinary tract infection, pneumonia, COVID/flu/rsv. No anemia. H&H stable. No acute electrolyte abnormality requiring intervention. Potassium and magnesium wnl. Normal renal function. Chronically elevated liver enzymes when compare to priors. EKG consistent with atrial fibrillation maintaining a rate around 60-70 bpm. She continues to deny headache, dizziness, chest pain, shortness of breath. This is likely patient's baseline. She takes metoprolol daily along with Eliquis. I do not feel as though intervention is needed at this time. She follows with Dr. Del Angel. 8145-- CXR shows incidental finding of slightly elevated right hemidiaphragm along with slight bronchial thickening correlating to infectious or inflammatory etiology > Awaiting UA. > delta troponin flat. > symptoms likely consistent with vasovagal syncope secondary to large bowel movement however given elevated white count, will wait on UA to r/o UTI. 7143-- Patient stable at the end of my shift. Sign out given to Jamaal MENDIOLA pending UA and disposition. UA positive for significant urinary tract infection > admitted to medicine for acute UTI and afib. Medications Administered Generic Name Dose Route Start Last Admin Trade Name Freq PRN Reason Stop Dose Admin Apixaban 5 mg 12/08/23 22:00 12/09/23 08:16 Apixaban 5 Mg Tablet PO 5 mg BID MILI Administration Atorvastatin Calcium 80 mg 12/08/23 22:00 12/08/23 23:01 Atorvastatin Calcium 80 Mg Tablet PO 80 mg BEDTIME MILI Administration Ceftriaxone Sodium 1 gm/ 50 mls @ 100 mls/hr 12/08/23 20:00 12/08/23 21:41 Sodium Chloride IV Infused Q24H MILI Infusion Melatonin 6 mg 12/08/23 20:00 12/08/23 23:01 Melatonin 3 Mg Tablet PO 6 mg BEDTIME PRN Administration Insomnia Metoprolol Tartrate 25 mg 12/08/23 22:00 12/08/23 23:02 Metoprolol Tartrate 25 Mg Tablet PO 25 mg BID MILI Administration Protocol Multivitamins/Vitamin C 1 tab 12/09/23 09:00 12/09/23 08:16 Multivitamin Tablet PO 1 tab DAILY MILI Administration Omeprazole 20 mg 12/09/23 06:30 12/09/23 05:59 Omeprazole 20 Mg Capsule.Dr PO 20 mg DAILY@0630 MILI Administration Potassium Chloride 40 meq 12/09/23 09:00 12/09/23 08:16 Potassium Chloride Er 20 Meq Tab.Er.Prt PO 40 meq DAILY MILI Administration Sodium Chloride 3 ml 12/09/23 00:00 12/09/23 08:16 0.9 % Sodium Chloride Flush 3 Ml Syringe IVFLUSH 3 ml QSHIFT MILI Administration Trazodone HCl 50 mg 12/08/23 22:00 12/08/23 23:02 Trazodone Hcl 50 Mg Tablet PO 50 mg BEDTIME MILI Administration Discontinued Medications Generic Name Dose Route Start Last Admin Trade Name Freq PRN Reason Stop Dose Admin Amlodipine Besylate 5 mg 12/09/23 09:00 12/09/23 08:16 Amlodipine Besylate 5 Mg Tablet PO 5 mg DAILY MILI Administration Protocol Sodium Chloride 1,000 mls @ 999 mls/hr 12/08/23 12:00 12/08/23 14:00 Ns IV 12/08/23 13:00 Infused .Q1H1M MILI Infusion Losartan Potassium 50 mg 12/09/23 09:00 12/09/23 08:16 Losartan Potassium 50 Mg Tablet PO 50 mg DAILY MILI Administration Protocol Potassium Chloride 40 meq 12/09/23 07:47 12/09/23 08:16 Potassium Chloride Packet 20 Meq Packet PO 12/09/23 07:48 40 meq ONCE ONE Administration Medical Decision Making Medical Decision Making MDM Narrative: 83 year old female with pmhx significant for paroxysmal afib on metoprolol and Eliquis, mood disorder, 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 Patient is nontoxic-appearing and in no acute distress. She is A&O x3. Lying comfortably in bed. Lungs are CTA bilaterally. Heart with irregularly irregular rate. Clinical concern for vasovagal syncope, dehydration, hypokalemia, C diff, viral syndrome, ACS, arrhythmia, afib, deconditioning. Lower suspicion for urinary tract infection, pneumonia. Unlikley PE, pleural effusion, dissection, CVA/TIA. Plan for basic labs, trop, EKG, CXR, viral swabs, UA and re-evaluation. Differential Diagnosis Differential Diagnoses: The differential diagnosis associated with the presentation includes as above. Admission/Observation Consideration of admission/observation: Escalation of care including admission/observation considered Patient to be admitted to medicine for acute UTI with generalized weakness. Lab Data [facility] Lab Attestation statement: I reviewed the patient's lab results. As above. 12/09/23 06:41 12/09/23 06:41 Labs: Lab Results 12/08/23 12/08/23 12/08/23 Range/Units 09:54 14:49 15:23 WBC 17.2 H (4.8-10.8) X10*3/uL RBC 4.63 D (4.20-5.50) X10*6/uL Hgb 14.7 D (12.0-16.0) g/dl Hct 42.4 D (37.0-47.0) % MCV 91.6 (80.0-98.0) fL MCH 31.7 (27.0-33.0) pg MCHC 34.7 (31.0-35.0) g/dl RDW 13.4 (11.0-16.0) % Plt Count 310 (160-400) X10*3/uL MPV 10.3 (9.4-12.3) fL Immature Gran % (Auto) 0.3 (0.0-0.4) % Neut % (Auto) 87.6 H (45-73) % Lymph % (Auto) 8.0 L (20-40) % [place] % (Auto) 3.5 (2-11) % Eos % (Auto) 0.3 (0-4) % Baso % (Auto) 0.3 (0-2) % Lymph # (Auto) 1.4 (1.2-4.9) X10*3/uL [place] # (Auto) 0.6 (0.1-1.2) X10*3/uL Eos # (Auto) 0.1 (0.0-0.4) X10*3/uL Baso # (Auto) 0.1 (0.0-0.2) X10*3/uL Abs Immat Gran (auto) 0.06 H (0.00-0.03) X10*3/uL Absolute Neuts (auto) 15.1 H (2.0-8.3) x10*3/uL Absolute Nucleated RBC 0.000 (0.0-0.012) X10*3/uL Nucleated RBC % (auto) 0.0 (0.0-0.2) /100WBC Sodium 142 (135-145) mmol/L Potassium 3.5 (3.3-5.1) mmol/L Chloride 107 (96-108) mmol/L Carbon Dioxide 20 L (22-29) mmol/L Anion Gap 19 (12-20) BUN 15 (9-16) mg/dL Creatinine 0.97 (0.5-1.4) mg/dL Estim Creat Clear Calc 41.6 Estimated GFR 55 Random Glucose 132 H (60-115) mg/dL Calcium 10.2 D (8.4-10.2) mg/dL Total Bilirubin 0.7 (0.0-1.0) mg/dL AST 36 H (5-31) U/L ALT 32 H (0-31) U/L Alkaline Phosphatase 102 (39-117) U/L Troponin I High Sens 7.2 5.1 (<3.5-17.0) ng/L Total Protein 8.4 H (6.5-8.0) g/dL Albumin 4.6 (3.5-5.0) g/dL Urine Color Urine Appearance Urine pH (5.0-9.0) Ur Specific [place] (1.005-1.025) Urine Protein (Neg-Trace) mg/dL Urine Glucose (UA) (Negative) mg/dL Urine Ketones (Negative) mg/dL Urine Blood (Negative) Urine Nitrite (Negative) Ur Leukocyte Esterase (Negative) Urine RBC (0-2) /HPF Urine WBC (0-5) /HPF Ur Squamous Epith Cells (0-2) /HPF Urine Bacteria (None Seen) Hyaline Casts (0-2) /LPF Influenza Type A (PCR) NEGATIVE (Negative) Influenza Type B (PCR) NEGATIVE (Negative) RSV RNA Qual (PCR) NEGATIVE (Negative) SARS-CoV-2 RNA (RT-PCR) NEGATIVE (Negative) 12/08/23 Range/Units 17:19 WBC (4.8-10.8) X10*3/uL RBC (4.20-5.50) X10*6/uL Hgb (12.0-16.0) g/dl Hct (37.0-47.0) % MCV (80.0-98.0) fL MCH (27.0-33.0) pg MCHC (31.0-35.0) g/dl RDW (11.0-16.0) % Plt Count (160-400) X10*3/uL MPV (9.4-12.3) fL Immature Gran % (Auto) (0.0-0.4) % Neut % (Auto) (45-73) % Lymph % (Auto) (20-40) % [place] % (Auto) (2-11) % Eos % (Auto) (0-4) % Baso % (Auto) (0-2) % Lymph # (Auto) (1.2-4.9) X10*3/uL [place] # (Auto) (0.1-1.2) X10*3/uL Eos # (Auto) (0.0-0.4) X10*3/uL Baso # (Auto) (0.0-0.2) X10*3/uL Abs Immat Gran (auto) (0.00-0.03) X10*3/uL Absolute Neuts (auto) (2.0-8.3) x10*3/uL Absolute Nucleated RBC (0.0-0.012) X10*3/uL Nucleated RBC % (auto) (0.0-0.2) /100WBC Sodium (135-145) mmol/L Potassium (3.3-5.1) mmol/L Chloride (96-108) mmol/L Carbon Dioxide (22-29) mmol/L Anion Gap (12-20) BUN (9-16) mg/dL Creatinine (0.5-1.4) mg/dL Estim Creat Clear Calc Estimated GFR Random Glucose (60-115) mg/dL Calcium (8.4-10.2) mg/dL Total Bilirubin (0.0-1.0) mg/dL AST (5-31) U/L ALT (0-31) U/L Alkaline Phosphatase (39-117) U/L Troponin I High Sens (<3.5-17.0) ng/L Total Protein (6.5-8.0) g/dL Albumin (3.5-5.0) g/dL Urine Color Yellow Urine Appearance Cloudy Urine pH 6.0 (5.0-9.0) Ur Specific [place] 1.010 (1.005-1.025) Urine Protein Negative (Neg-Trace) mg/dL Urine Glucose (UA) Negative (Negative) mg/dL Urine Ketones 15 (Negative) mg/dL Urine Blood Small (1+) H (Negative) Urine Nitrite Positive H (Negative) Ur Leukocyte Esterase Large (3+) H (Negative) Urine RBC 6-10 H (0-2) /HPF Urine WBC >50 H (0-5) /HPF Ur Squamous Epith Cells 0-2 (0-2) /HPF Urine Bacteria 4+ (None Seen) Hyaline Casts 3-5 (0-2) /LPF Influenza Type A (PCR) (Negative) Influenza Type B (PCR) (Negative) RSV RNA Qual (PCR) (Negative) SARS-CoV-2 RNA (RT-PCR) (Negative) Independent Interpretation I performed an independent interpretation of an: EKG and Plain X-Ray Interpretation: I personally interpreted chest x-ray and agree with radiologist's interpretation. Initial EKG showing atrial fibrillation, 69 beats per minute, ST and T-wave abnormality however when compared to EKG performed 2 months ago, no significant change was found. Repeat chest x-ray shows atrial fibrillation, rate of 65 beats per minute, ST and T-wave abnormality no longer present. Radiology Impression Discussion of test interpretation with radiology: I have reviewed the radiologist's reading. Radiologist Impression: XR chest 2V IMPRESSION: 1. Slight elevation the right hemidiaphragm. 2. Very slight bronchial thickening which can be seen in the setting of infectious/inflammatory etiology. Independent Historian Clinical information obtained from an independent historian. History obtained from or confirmed by: Other (Daughter) External Record Review External record reviewed: Inpatient record, Office record, Outpatient record, Prior outpatient labs, Prior outpatient radiology, Primary care record and Outside ED record Prescription Management I considered prescription management with: Pain Medication and Antibiotic Chronic Conditions Patient?s care impacted by: Other (Atrial fibrillation, CVA) Social Determinants Patient?s care significantly limited by Social Determinants of Health including: Other Social Determinant of Health Critical Care Time Critical Care Time Critical Care Time: Yes Total Critical Care Time: 50 Attestation: Critical care time in the amount of 50 minutes has been provided to the patient in terms of direct patient care, frequent reevaluation, review and interpretation of medical data and results, and management of potentially life-threatening conditions. This is all outside of any medical procedures. Discharge Plan Discharge Clinical Impression: Atrial fibrillation, Syncope, vasovagal, Urinary tract infection Patient Disposition: Admitted As Inpatient Interventions: Admission Worksheet (ED) Last Done: 12/08/23 20:33 Discharge Date/Time: 12/08/23 22:41
--- NOTE | 2023-12-08 12:03 | ECG_ITS ---
Test Reason : SYNCOPE Blood Pressure : / mmHG Vent. Rate : 065 BPM Atrial Rate : 000 BPM P-R Int : 000 ms QRS Dur : 098 ms QT Int : 422 ms P-R-T Axes : 000 016 042 degrees QTc Int : 438 ms Atrial fibrillation Abnormal ECG When compared with ECG of 08-DEC-2023 09:16, T wave inversion no longer evident in Inferior leads Referred By: Audrey Galicia Electronically Signed By:NIRAV VIZCARRA MD
[2023-12-08] MEDS: 0.9 % Sodium Chloride 1,000 ML 999 ML IV (12:44)
[2023-12-08 15:38] LABS: Influenza A PCR NEGATIVE (Negative); Influenza B PCR NEGATIVE (Negative); Resp Syncy Virus RNA Qual PCR NEGATIVE (Negative); SARS COV2 PCR INHOUSE NEGATIVE (Negative)
[2023-12-08 15:56] LABS: Troponin-I High Sensitivity 5.1 ng/L (<3.5-17.0)
[2023-12-08 17:26] LABS: Appearance Urine Cloudy; Color Urine Yellow; Glucose Urine UA Negative (Negative); Leukocyte Esterase Urine Large (3+) (Negative); Nitrite Urine Positive (Negative); UMIC TRIGGER UACC YES; Urine Blood Small (1+) (Negative); Urine Ketones 15 mg/dL (Negative); Urine Protein Negative (Neg-Trace)
[2023-12-08 18:01] LABS: Bacteria Urine 4+ (None Seen); Squamous Epithelial Cell Urine 0-2 /HPF (0-2); UACC Culture Trigger YES; WBC Urine >50 /HPF (0-5)
--- NOTE | 2023-12-08 19:56 | P.HPHOSP_ITS ---
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 Pt apparently had a large amount of diarrhea while in the bathroom when she suddenly felt weak, vomited, and syncopized for approximately 20 seconds. Episode was witnessed by daughter who contacted EMS. No headstrike. Pt herself denies any prodrome of symptoms: No fever, chills, lightheadedness, dizziness. Denies any belly pain. Patient denies having episode like this before, but states she has had chronic diarrhea since suffering a stroke in July of 2023. Patient also denies polyuria or dysuria. Reports that she tries to drink enough fluids. Patient continues to be visited by [facility] who help with bathing and ambulation. Patient uses both wheelchair and walker at baseline. Patient currently denies any acute medical complaints. Says she overall feels ?fine?. No chest pain/pressure, palpitations. Denies shortness of breath. No headache, acute vision changes. Has not had any repeat episodes of diarrhea since at the electric container tester's office. Of note,?patient was admitted to the hospital 1 month ago on 11/01-11/03 and treated for C diff. In the ED pt with slightly soft BP of 121/47, vitals otherwise WNL Labs were significant for leukocytosis of 17.2, AST 36, and ALT 32. Stable H&H. No electrolyte abnormalities. Troponin 72 with repeat flat 5.1. UA positive for UTI. Tested negative for influenza type a and B, RSV, COVID. CXR showed very slight bronchial thickening which can be seen in setting of infectious/inflammatory etiology. EKG demonstrated AFib with ST and T-wave abnormalities, but no significant ST elevations or depressions. Pt was treated with IVF. Pt will be admitted to the hospital for treatment and further evaluation of syncopal episode and generalized weakness in the setting of acute UTI. Review of Systems 2 Review of Systems: Syncopal episode Vomiting Chronic diarrhea Denies lightheadedness, dizziness No fever, chills, abdominal pain Denies chest pain/pressure, palpitations PMFSH Medical History HLD (hyperlipidemia) Atrial fibrillation History of malignant melanoma History of basal cell carcinoma History of dysplastic nevus Degenerative joint disease (DJD) of hip Low back pain radiating to left lower extremity History of squamous cell carcinoma Venous insufficiency (chronic) (peripheral) Diarrhea Hypertension Family History Father Throat cancer Mother Kidney failure Surgical History H/O breast biopsy Hx of colonoscopy Hx of cholecystectomy Hx of appendectomy Social History Household Members: Family Housing: House Alcohol intake: current Alcohol intake frequency: does not drink Alcohol type: wine Patient Tobacco Use Status: Never used Tobacco Smoked in Last 30 Days: No Use of substances other than those prescribed or required for medical reasons: No Advance Directives: Yes Advance Directives on File: No Advance Directives Date on File: 11/02/23 service: No Meds Allergies Allergy/AdvReac Type Severity Reaction Status Date / Time codeine Allergy Unknown rash Verified 11/01/23 13:54 Penicillins AdvReac Hives Verified 11/01/23 13:54 terbinafine [From Lamisil] AdvReac Hives Verified 11/01/23 13:54 Home Medications Medication Instructions Recorded Confirmed Last Taken Type amlodipine 5 mg tablet 5 mg PO DAILY 10/01/23 12/08/23 12/08/23 History atorvastatin 80 mg tablet 80 mg PO BEDTIME 10/01/23 12/08/23 12/07/23 History losartan 50 mg tablet 50 mg PO DAILY 10/01/23 12/08/23 12/08/23 History ixtyyuywsslx-dkedirqd-bcsals tablet 1 tab PO DAILY 10/01/23 12/08/23 12/08/23 History pantoprazole 40 mg tablet,delayed 40 mg PO DAILY@0630 10/01/23 12/08/23 12/08/23 History release trazodone 50 mg tablet 50 mg PO BEDTIME 10/01/23 12/08/23 12/07/23 History apixaban 5 mg tablet (Eliquis) 5 mg PO BID 10/10/23 12/08/23 12/08/23 History melatonin 3 mg tablet 6 mg PO BEDTIME Sleep 10/10/23 12/08/23 12/07/23 History metoprolol tartrate 50 mg tablet 25 mg PO BID 10/21/23 12/08/23 12/08/23 History nystatin 100,000 unit/gram topical 1 appl topical TID PRN Rash 10/21/23 12/08/23 Unknown History powder cranberry fruit 450 mg tablet 450 mg PO BID 12/08/23 12/08/23 Unknown History (cranberry) ketoconazole 2 % topical cream 1 appl topical BID PRN Rash 12/08/23 12/08/23 Unknown History zinc gluconate 50 mg tablet 50 mg PO DAILY 12/08/23 12/08/23 12/08/23 History Physical Exam 2 Vital Signs and Narrative: Vital Signs: Last Vital Signs Temp 98.7 F 12/08/23 19:55 Pulse 81 12/08/23 19:55 Resp 15 12/08/23 19:55 BP 136/64 12/08/23 19:55 Pulse Ox 98 12/08/23 19:55 O2 Del Method Room Air 12/08/23 19:55 BMI result Body Mass Index 25.7 Constitutional: Alert, in no acute distress. Resting comfortably in bed. Mental Status: Oriented to person, place and time. Eyes: Pupils are equal, round, and reactive to light. Ear, Nose, and Throat: Oropharynx clear, mucous membranes moist. Ears and nose without deformities. Trachea midline. Respiratory: Clear to auscultation bilaterally. No wheezing, rales, or rhonchi. Cardiovascular: Irregularly irregular rhythm. No murmurs, rubs, or gallops. Gastrointestinal: Abdomen soft, non-tender, non-distended. Normal bowel sounds. Neurologic: Cranial nerves II-XII are grossly intact bilaterally. Moves all extremities spontaneously. Right hemiparesis. Skin: Warm, dry. Musculoskeletal: No cyanosis or clubbing. Extremities: No edema. Psychiatric: Normal mood and affect. Results Labs 12/08/23 09:54 12/08/23 09:54 Labs: Laboratory Results - last 24 hr 12/08/23 12/08/23 12/08/23 09:54 14:49 15:23 MCV 91.6 MCH 31.7 MCHC 34.7 RDW 13.4 Plt Count 310 MPV 10.3 Immature Gran % (Auto) 0.3 Neut % (Auto) 87.6 H Lymph % (Auto) 8.0 L [place] % (Auto) 3.5 Eos % (Auto) 0.3 Baso % (Auto) 0.3 Lymph # (Auto) 1.4 Garden # (Auto) 0.6 Eos # (Auto) 0.1 Baso # (Auto) 0.1 Abs Immat Gran (auto) 0.06 H Absolute Neuts (auto) 15.1 H Absolute Nucleated RBC 0.000 Nucleated RBC % (auto) 0.0 Anion Gap 19 Estim Creat Clear Calc 41.6 Estimated GFR 55 Random Glucose 132 H Calcium 10.2 D Total Bilirubin 0.7 AST 36 H ALT 32 H Alkaline Phosphatase 102 Troponin I High Sens 7.2 5.1 Total Protein 8.4 H Albumin 4.6 Urine Color Urine Appearance Urine pH Ur Specific [place] Urine Protein Urine Glucose (UA) Urine Ketones Urine Blood Urine Nitrite Ur Leukocyte Esterase Urine RBC Urine WBC Ur Squamous Epith Cells Urine Bacteria Hyaline Casts Influenza Type A (PCR) NEGATIVE Influenza Type B (PCR) NEGATIVE RSV RNA Qual (PCR) NEGATIVE SARS-CoV-2 RNA (RT-PCR) NEGATIVE 12/08/23 17:19 MCV MCH MCHC RDW Plt Count MPV Immature Gran % (Auto) Neut % (Auto) Lymph % (Auto) Garden % (Auto) Eos % (Auto) Baso % (Auto) Lymph # (Auto) [place] # (Auto) Eos # (Auto) Baso # (Auto) Abs Immat Gran (auto) Absolute Neuts (auto) Absolute Nucleated RBC Nucleated RBC % (auto) Anion Gap Estim Creat Clear Calc Estimated GFR Random Glucose Calcium Total Bilirubin AST ALT Alkaline Phosphatase Troponin I High Sens Total Protein Albumin Urine Color Yellow Urine Appearance Cloudy Urine pH 6.0 Ur Specific [place] 1.010 Urine Protein Negative Urine Glucose (UA) Negative Urine Ketones 15 Urine Blood Small (1+) H Urine Nitrite Positive H Ur Leukocyte Esterase Large (3+) H Urine RBC 6-10 H Urine WBC >50 H Ur Squamous Epith Cells 0-2 Urine Bacteria 4+ Hyaline Casts 3-5 Influenza Type A (PCR) Influenza Type B (PCR) RSV RNA Qual (PCR) SARS-CoV-2 RNA (RT-PCR) Imaging Radiologist's Impressions: Impressions Chest X-Ray 12/08/23 12:06 IMPRESSION: 1. Slight elevation the right hemidiaphragm. 2. Very slight bronchial thickening which can be seen in the setting of infectious/inflammatory etiology. 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 Pt apparently had a large amount of diarrhea while in the bathroom when she suddenly felt weak, vomited, and syncopized for approximately 20 seconds. Pt will be admitted to the hospital for treatment and further evaluation of syncopal episode and generalized weakness in the setting of acute UTI. Syncopal episode Etiology unclear: Differential includes vasovagal, cardiac, orthostatic, secondary to UTI Patient received IVF in ED Will check orthostatics tomorrow Monitor on telemetry Acute UTI Patient does not meet sepsis criteria: Leukocytosis, but no fever, tachycardia or tachypnea Will treat with ceftriaxone, started 12/08/2023 Persistent AFib Continue metoprolol, Eliquis HLD/Hx of CVA Continue statin HTN Continue amlodipine, losartan GERD Continue pantoprazole Mood disorder Continue home meds Full Code Attending:?Dr. Myles DVT Prophylaxis: On Eliquis Pt will require a hospitalization of at least two nights for treatment of?syncopal episode in setting of UTI with administration of IV antibiotics and close monitoring of cardiac function and vitals. Quality Stroke Does the patient have a stroke diagnosis?: No VTE Prior VTE?: No VTE Risk Level:: Medical - moderate - high VTE Device Contraindication: Treatment Not Indicated VTE Drug Contraindication: N/A - Med Ordered
--- NOTE | 2023-12-08 20:29 | PHA.MEDREC ---
Addendum entered by Sherri North RPh 12/08/23 20:57: Patient list said metoprolol 25 mg 1 tab daily, however patient is filling metoprolol 50 mg 1/2 tab BID. Patient could not clarify medication therefore entered based on claim history. Ashu Rodriguez attempted to call both sons but had no luck and left voicemails. Original Note: Pharmacy Consult ? Medication Reconciliation Pharmacy has completed the medication reconciliation. Confirmed medications through claim history, list from [facility], and patient but she is a poor historian.
--- NOTE | 2023-12-08 20:52 | PC.NURSE ---
[facility] at bedside now.
[2023-12-08] MEDS: cefTRIAXone sodium 1 GM in 0.9 % Sodium Chloride 50 ML IV (21:11)
[2023-12-08] MEDS: Atorvastatin Calcium 80 MG TABLET PO (23:01)
[2023-12-08] MEDS: Apixaban 5 MG TABLET PO (23:01)
[2023-12-08] MEDS: Melatonin 3 MG TABLET 6 MG PO (23:01)
[2023-12-08] MEDS: Metoprolol Tartrate 25 MG TABLET PO (23:02)
[2023-12-08] MEDS: 0.9 % Sodium Chloride Flush 3 ML SYRINGE IVFLUSH (23:02)
[2023-12-08] MEDS: traZODone HCL 50 MG TABLET PO (23:02)
[2023-12-09] VITALS (9 sets, daily range): BP systolic 111–148; BP diastolic 54–81; PULSE 65–90; RESP 16–18; TEMP 36–36.8; O2SAT 96–98
[2023-12-09] MEDS: Omeprazole 20 MG CAPSULE.DR PO (05:59)
[2023-12-09 07:05] LABS: Hematocrit 34.1 % (37.0-47.0); Hemoglobin 11.7 g/dl (12.0-16.0); Mean Corpuscular HGB Conc 34.3 g/dl (31.0-35.0); Mean Corpuscular Hemoglobin 31.7 pg (27.0-33.0); Mean Corpuscular Volume 92.4 fL (80.0-98.0); Mean Platelet Volume 10.3 fL (9.4-12.3); Platelet Count 276 X10*3/uL (160-400); Red Blood Count 3.69 X10*6/uL (4.20-5.50); Red Cell Distribution Width 13.3 % (11.0-16.0); White Blood Count 9.1 X10*3/uL (4.8-10.8)
[2023-12-09 07:44] LABS: Anion Gap 14 (12-20); Blood Urea Nitrogen 11 mg/dL (9-16); Calcium 9.1 mg/dL (8.4-10.2); Carbon Dioxide 24 mmol/L (22-29); Chloride 106 mmol/L (96-108); Creatinine Clr Calc Pharmacy 58.4; Estimated Glomerular Filt Rate > 60; Glucose Random 110 mg/dL (60-115); Potassium 2.9 mmol/L (3.3-5.1); Sodium 141 mmol/L (135-145)
[2023-12-09 08:16] LABS: Magnesium 1.9 mg/dL (1.6-2.6)
[2023-12-09] MEDS: Losartan Potassium 50 MG TABLET PO (08:16)
[2023-12-09] MEDS: 0.9 % Sodium Chloride Flush 3 ML SYRINGE IVFLUSH ×2 (08:16→15:23)
[2023-12-09] MEDS: Potassium Chloride ER 20 MEQ TAB.ER.PRT 40 MEQ PO (08:16)
[2023-12-09] MEDS: Multivitamin TABLET 1 TAB PO (08:16)
[2023-12-09] MEDS: Apixaban 5 MG TABLET PO ×2 (08:16→20:38)
[2023-12-09] MEDS: amLODIPine Besylate 5 MG TABLET PO (08:16)
[2023-12-09] MEDS: Potassium Chloride Packet 20 MEQ PACKET 40 MEQ PO (08:16)
--- NOTE | 2023-12-09 10:14 | PM.CNCAR ---
History of Present Illness History of Present Illness Date of Service: 12/09/23 Requesting physician: Spencer Mccarthy Consult reason: other (Syncope) Chief complaint: Syncope,Uti Narrative: I was consulted to see Cande in cardiology consultation today for syncopal event. Patient was accompanied by her daughter in present at bedside when I was interviewing her. Patient with stroke last July related to atrial fibrillation current anticoagulation therapy. Patient was admitted about a month ago with C diff diarrhea. Since then she has had recurrent episodes of diary although the daughter says that she has diarrhea for many years up to 5 years which she had been managing but since the stroke her diarrhea has been very difficult to manage and has impeded the recovery as per the daughter. She also has had history of recurrent UTI. She is currently on rate control and oral anticoagulation therapy. She has not had any recurrent neurological symptoms. 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 Daughter was by her side and notice that she was slumped over and unconscious for about 20 seconds. Patient then came around and 911 was called and patient was brought to the emergency room. She was given IV crystalloids overnight. She feels okay. Heart rate is remained controlled. No overnight bradycardia. Cardiology consult was called for syncopal episode. Review of Systems Constitutional: Constitutional: Reports no additional constitutional complaints Eyes: Eyes: Reports no additional eye complaints Cardiovascular: Cardiovascular: Denies chest pain, Denies rapid heart rate, Denies leg edema, Reports Loss of Consciousness and Denies dyspnea Respiratory: Respiratory: Reports no additional respiratory complaints and Denies dyspnea Gastrointestinal: Gastrointestinal: Reports diarrhea Genitourinary: Genitourinary: Reports no additional female genitourinary complaints Neurologic: Reports system reviewed and no additional complaints, except as documented Psychiatric: Psychiatric: Reports no additional psychiatric complaints [facility] Past Medical History Medical History HLD (hyperlipidemia) Atrial fibrillation History of malignant melanoma History of basal cell carcinoma History of dysplastic nevus Degenerative joint disease (DJD) of hip Low back pain radiating to left lower extremity History of squamous cell carcinoma Venous insufficiency (chronic) (peripheral) Diarrhea Hypertension Family History Family History Father Throat cancer Mother Kidney failure Surgical History Surgical History H/O breast biopsy Hx of colonoscopy Hx of cholecystectomy Hx of appendectomy Social History Social History Household Members: Spouse Housing: House Alcohol intake: current Alcohol intake frequency: does not drink Alcohol type: wine Patient Tobacco Use Status: Never used Tobacco Advance Directives Date on File: 11/02/23 service: No Meds Allergies Allergy/AdvReac Type Severity Reaction Status Date / Time codeine Allergy Unknown rash Verified 11/01/23 13:54 Penicillins AdvReac Hives Verified 11/01/23 13:54 terbinafine [From Lamisil] AdvReac Hives Verified 11/01/23 13:54 Active Medications: Current Medications Acetaminophen (Acetaminophen 325 Mg Tablet) 650 mg PO Q6H PRN PRN Reason: Pain, Mild (Pain Scale 1-3) Apixaban (Apixaban 5 Mg Tablet) 5 mg PO BID [facility] Last Admin: 12/09/23 08:16 Dose: 5 mg Atorvastatin Calcium (Atorvastatin Calcium 80 Mg Tablet) 80 mg PO BEDTIME [facility] Last Admin: 12/08/23 23:01 Dose: 80 mg Benzonatate (Benzonatate 100 Mg Capsule) 100 mg PO TID PRN PRN Reason: Cough Docusate Sodium (Docusate Sodium 100 Mg Capsule) 100 mg PO DAILY PRN PRN Reason: Constipation Ceftriaxone Sodium 1 gm/ (Sodium Chloride) 50 mls @ 100 mls/hr IV Q24H [facility] Last Infusion: 12/08/23 21:41 Dose: Infused Melatonin (Melatonin 3 Mg Tablet) 6 mg PO BEDTIME PRN PRN Reason: Insomnia Last Admin: 12/08/23 23:01 Dose: 6 mg Metoprolol Tartrate (Metoprolol Tartrate 25 Mg Tablet) 25 mg PO BID [facility]; Protocol Last Admin: 12/08/23 23:02 Dose: 25 mg Multivitamins/Vitamin C (Multivitamin Tablet) 1 tab PO DAILY [facility] Last Admin: 12/09/23 08:16 Dose: 1 tab Omeprazole (Omeprazole 20 Mg Capsule.Dr) 20 mg PO DAILY@0630 [facility] Last Admin: 12/09/23 05:59 Dose: 20 mg Ondansetron HCl (Ondansetron Hcl 4 Mg/2 Ml Vial) 4 mg IVPUSH Q8H PRN PRN Reason: Nausea and Vomiting Potassium Chloride (Potassium Chloride Er 20 Meq Tab.Er.Prt) 40 meq PO DAILY [facility] Last Admin: 12/09/23 08:16 Dose: 40 meq Sodium Chloride (0.9 % Sodium Chloride Flush 3 Ml Syringe) 3 ml IVFLUSH QSHIFT [facility] Last Admin: 12/09/23 08:16 Dose: 3 ml Trazodone HCl (Trazodone Hcl 50 Mg Tablet) 50 mg PO BEDTIME [facility] Last Admin: 12/08/23 23:02 Dose: 50 mg Home Medications Medication Instructions Recorded Confirmed Last Taken Type amlodipine 5 mg tablet 5 mg PO DAILY 10/01/23 12/08/23 12/08/23 History atorvastatin 80 mg tablet 80 mg PO BEDTIME 10/01/23 12/08/23 12/07/23 History losartan 50 mg tablet 50 mg PO DAILY 10/01/23 12/08/23 12/08/23 History atyyqogkriww-hdjvcakw-phqiwf tablet 1 tab PO DAILY 10/01/23 12/08/23 12/08/23 History pantoprazole 40 mg tablet,delayed 40 mg PO DAILY@0630 10/01/23 12/08/23 12/08/23 History release trazodone 50 mg tablet 50 mg PO BEDTIME 10/01/23 12/08/23 12/07/23 History apixaban 5 mg tablet (Eliquis) 5 mg PO BID 10/10/23 12/08/23 12/08/23 History melatonin 3 mg tablet 6 mg PO BEDTIME Sleep 10/10/23 12/08/23 12/07/23 History metoprolol tartrate 50 mg tablet 25 mg PO BID 10/21/23 12/08/23 12/08/23 History nystatin 100,000 unit/gram topical 1 appl topical TID PRN Rash 10/21/23 12/08/23 Unknown History powder cranberry fruit 450 mg tablet 450 mg PO BID 12/08/23 12/08/23 Unknown History (cranberry) ketoconazole 2 % topical cream 1 appl topical BID PRN Rash 12/08/23 12/08/23 Unknown History zinc gluconate 50 mg tablet 50 mg PO DAILY 12/08/23 12/08/23 12/08/23 History Physical Exam Vital Signs: Vital Signs: Last Vital Signs Temp 97.8 F 12/09/23 07:51 Pulse 65 12/09/23 09:55 Resp 18 12/09/23 07:51 BP 126/64 12/09/23 09:55 Pulse Ox 98 12/09/23 09:55 O2 Del Method Room Air 12/09/23 07:51 BMI result Body Mass Index 25.7 Const: General: cooperative, comfortable, no acute distress, alert and awake Nutritional Appearance: average body habitus Orientation/consciousness: patient oriented x3 Limitations: no limitations HEENT: Head: Yes normocephalic and Yes atraumatic Neck: Neck: Yes trachea midline, Yes supple and Yes no JVD Resp: Effort & Inspection: normal respiratory effort Auscultation: clear to auscultation bilaterally Cardio: Jugular venous distension: no JVD Palpation: normal PMI Rhythm: abnormal rhythm irregularly irregular Heart sounds: S1 normal heart sound present, S2 normal heart sound present, no click, no gallops, no murmurs and no rubs GI: Auscultation: normal bowel sounds Skin: General skin exam: no rashes or lesions noted Neuro: General: patient oriented x3 and other (Right hemiparesis) Extrem: General: Yes no clubbing, cyanosis or edema Objective Labs and Meds 12/09/23 06:41 12/09/23 06:41 Lab results: Laboratory Results - last 24 hr 12/08/23 12/08/23 12/08/23 09:54 14:49 15:23 WBC RBC Hgb Hct MCV MCH MCHC RDW Plt Count MPV Absolute Nucleated RBC Nucleated RBC % (auto) Sodium 142 Potassium 3.5 Chloride 107 Carbon Dioxide 20 L Anion Gap 19 BUN 15 Creatinine 0.97 Estim Creat Clear Calc 41.6 Estimated GFR 55 Random Glucose 132 H Calcium 10.2 D Magnesium Total Bilirubin 0.7 AST 36 H ALT 32 H Alkaline Phosphatase 102 Troponin I High Sens 7.2 5.1 Total Protein 8.4 H Albumin 4.6 Urine Color Urine Appearance Urine pH Ur Specific [place] Urine Protein Urine Glucose (UA) Urine Ketones Urine Blood Urine Nitrite Ur Leukocyte Esterase Urine RBC Urine WBC Ur Squamous Epith Cells Urine Bacteria Hyaline Casts Influenza Type A (PCR) NEGATIVE Influenza Type B (PCR) NEGATIVE RSV RNA Qual (PCR) NEGATIVE SARS-CoV-2 RNA (RT-PCR) NEGATIVE 12/08/23 12/09/23 17:19 06:41 WBC 9.1 RBC 3.69 L D Hgb 11.7 L D Hct 34.1 L MCV 92.4 MCH 31.7 MCHC 34.3 RDW 13.3 Plt Count 276 MPV 10.3 Absolute Nucleated RBC 0.000 Nucleated RBC % (auto) 0.0 Sodium 141 Potassium 2.9 L* Chloride 106 Carbon Dioxide 24 Anion Gap 14 BUN 11 Creatinine 0.69 Estim Creat Clear Calc 58.4 Estimated GFR > 60 Random Glucose 110 Calcium 9.1 D Magnesium 1.9 Total Bilirubin AST ALT Alkaline Phosphatase Troponin I High Sens Total Protein Albumin Urine Color Yellow Urine Appearance Cloudy Urine pH 6.0 Ur Specific [place] 1.010 Urine Protein Negative Urine Glucose (UA) Negative Urine Ketones 15 Urine Blood Small (1+) H Urine Nitrite Positive H Ur Leukocyte Esterase Large (3+) H Urine RBC 6-10 H Urine WBC >50 H Ur Squamous Epith Cells 0-2 Urine Bacteria 4+ Hyaline Casts 3-5 Influenza Type A (PCR) Influenza Type B (PCR) RSV RNA Qual (PCR) SARS-CoV-2 RNA (RT-PCR) EKG shows atrial fibrillation with controlled ventricular response with nonspecific ST changes Imaging Radiologist's impression: Impressions Chest X-Ray 12/08/23 12:06 IMPRESSION: 1. Slight elevation the right hemidiaphragm. 2. Very slight bronchial thickening which can be seen in the setting of infectious/inflammatory etiology. Assessment and Plan (1) Syncope, vasovagal: Status: Acute Syncopal episode after a large diarrheal bowel movement and UTI most likely suggestive of vasovagal syncope. Also could be orthostatic although less likely. She has history of chronic diarrhea and has recurrent episodes of diarrhea. This needs to be investigated as outpatient and a GI consult should be requested. I do not think any further inpatient workup is required. Can follow-up as outpatient with her supervisor hand workers and have Holter monitor and echocardiogram performed. (2) Atrial fibrillation: Status: Acute Atrial fibrillation with adequate rate control on current therapy. Continue full oral anticoagulation given her stroke in July, currently on Eliquis. There is no evidence of bleeding. Will sign of the case and follow-up as need be. Thank you for allowing me to partake in the care Procedures Date of Service Date of Service: 12/09/23
--- NOTE | 2023-12-09 10:18 | MHC.CM.PN ---
IMM 12/09. Pt lives at home with her , and 2 sons (daughter from [place] is also temporarily staying with her for the month while 1 son is on vacation). Pt is active with [facility] services (SN/OT), and has [facility] 2hrs/day x 5 days/wk. Pts uses a walker and a wheelchair. Pts son or daughter will transport her home at D/C. PT rec home with services. Per pt and daughter present at bedside, they would not want STR. HCP received from [facility], now on file and verified. DCP: Return home with resumption of [facility] services via family transport. PCP: Dr. Jonna Soto
[2023-12-09 13:00] LABS: Adenovirus F 40/41 Not Detected (Not Detect.); Astrovirus Not Detected (Not Detect.); Campylobacter Not Detected (Not Detect.); Cryptosporidium Not Detected (Not Detect.); Cyclospora cayetanensis Not Detected (Not Detect.); E. coli EAEC Not Detected (Not Detect.); E. coli EPEC Not Detected (Not Detect.); E. coli ETEC Not Detected (Not Detect.); E. coli STEC Not Detected (Not Detect.); Entamoeba histolytica Not Detected (Not Detect.); Giardia lamblia Not Detected (Not Detect.); Norovirus GI/GII Not Detected (Not Detect.); Plesiomonas shigelloides Not Detected (Not Detect.); Rotavirus A Not Detected (Not Detect.); Salmonella Not Detected (Not Detect.); Sapovirus Not Detected (Not Detect.); Shigella sp./EIEC Not Detected (Not Detect.); Vibrio Not Detected (Not Detect.); Vibrio Cholerae Not Detected (Not Detect.)
[2023-12-09 13:09] LABS: CDiff Gene PCR NEGATIVE (Negative)
[2023-12-09 13:17] LABS: Yersinia enterocolitica Detected (Not Detect.)
--- NOTE | 2023-12-09 13:58 | HO.PM.IMPN ---
Subjective Subjective Date of Service: 12/09/23 Interval History: diarrhae ,? uti Review of Systems denies urinary c/o or abd pain . has diarrhae ( >1 month), had episode of vomiting also, no fevers no nausea , vomiting today Physical Exam Vital Signs: Vital Signs: Last Vital Signs Temp 97.8 F 12/09/23 11:56 Pulse 73 12/09/23 11:56 Resp 16 12/09/23 11:56 BP 136/63 12/09/23 11:56 Pulse Ox 96 12/09/23 11:56 O2 Del Method Room Air 12/09/23 11:56 BMI result Body Mass Index 25.7 Appearance: Alert.? Oriented X3. cvs: rrr, [id number] . res: clear to auscultation ,no rhonchii or wheezing abd: no rebound or guarding ,nt, bs present. ext pulses present , no cyanosis neuro: axo3 , nonfocal. Objective Data Active Medications Acetaminophen (Acetaminophen 325 Mg Tablet) 650 mg PO Q6H PRN PRN Reason: Pain, Mild (Pain Scale 1-3) Apixaban (Apixaban 5 Mg Tablet) 5 mg PO BID [facility] Last Admin: 12/09/23 08:16 Dose: 5 mg Documented By: ANEUDY Atorvastatin Calcium (Atorvastatin Calcium 80 Mg Tablet) 80 mg PO BEDTIME [facility] Last Admin: 12/08/23 23:01 Dose: 80 mg Documented By: SHELBY Benzonatate (Benzonatate 100 Mg Capsule) 100 mg PO TID PRN PRN Reason: Cough Docusate Sodium (Docusate Sodium 100 Mg Capsule) 100 mg PO DAILY PRN PRN Reason: Constipation Levofloxacin (Levaquin) 500 mg in 100 mls @ 100 mls/hr IV Q24H [facility] Melatonin (Melatonin 3 Mg Tablet) 6 mg PO BEDTIME PRN PRN Reason: Insomnia Last Admin: 12/08/23 23:01 Dose: 6 mg Documented By: SHELBY Metoprolol Tartrate (Metoprolol Tartrate 25 Mg Tablet) 25 mg PO BID [facility]; Protocol Last Admin: 12/08/23 23:02 Dose: 25 mg Documented By: SHELBY Multivitamins/Vitamin C (Multivitamin Tablet) 1 tab PO DAILY [facility] Last Admin: 12/09/23 08:16 Dose: 1 tab Documented By: ANEUDY Omeprazole (Omeprazole 20 Mg Capsule.Dr) 20 mg PO DAILY@0630 [facility] Last Admin: 12/09/23 05:59 Dose: 20 mg Documented By: SHELBY Ondansetron HCl (Ondansetron Hcl 4 Mg/2 Ml Vial) 4 mg IVPUSH Q8H PRN PRN Reason: Nausea and Vomiting Potassium Chloride (Potassium Chloride Er 20 Meq Tab.Er.Prt) 40 meq PO DAILY [facility] Last Admin: 12/09/23 08:16 Dose: 40 meq Documented By: ANEUDY Sodium Chloride (0.9 % Sodium Chloride Flush 3 Ml Syringe) 3 ml IVFLUSH QSHIFT [facility] Last Admin: 12/09/23 08:16 Dose: 3 ml Documented By: ANEUDY Trazodone HCl (Trazodone Hcl 50 Mg Tablet) 50 mg PO BEDTIME [facility] Last Admin: 12/08/23 23:02 Dose: 50 mg Documented By: SHELBY Labs 12/09/23 06:41 12/09/23 06:41 Labs: Laboratory Results - last 24 hr 12/08/23 12/08/23 12/08/23 14:49 15:23 17:19 MCV MCH MCHC RDW Plt Count MPV Absolute Nucleated RBC Nucleated RBC % (auto) Anion Gap Estim Creat Clear Calc Estimated GFR Random Glucose Calcium Magnesium Troponin I High Sens 5.1 Urine Color Yellow Urine Appearance Cloudy Urine pH 6.0 Ur Specific [place] 1.010 Urine Protein Negative Urine Glucose (UA) Negative Urine Ketones 15 Urine Blood Small (1+) H Urine Nitrite Positive H Ur Leukocyte Esterase Large (3+) H Urine RBC 6-10 H Urine WBC >50 H Ur Squamous Epith Cells 0-2 Urine Bacteria 4+ Hyaline Casts 3-5 Stl C. cayetanensis PCR Stool Rotavirus A PCR Stl Adenov F PCR Stool Astrovirus (PCR) Stool Campylobacter PCR Stool Cryptosporidium PCR Stl Sh Tox Pr E STEC PCR Stool E coli O157 PCR Stl Enterotoxigenic E PCR Stool EPEC (PCR) Stool EAEC (PCR) Stl E. histolytica PCR Stool Giardia Lamblia PCR Stl P. shigelloides PCR Stool Salmonella PCR Stool Sapovirus (PCR) Stl Shigella/EIEC PCR St Y.enterocolitica PCR Stool Vibrio (PCR) Stl Vibrio cholerae PCR Stl Norovirus GI/GII PCR C. difficile Tox B Gene Influenza Type A (PCR) NEGATIVE Influenza Type B (PCR) NEGATIVE RSV RNA Qual (PCR) NEGATIVE SARS-CoV-2 RNA (RT-PCR) NEGATIVE 12/09/23 12/09/23 06:41 11:23 MCV 92.4 MCH 31.7 MCHC 34.3 RDW 13.3 Plt Count 276 MPV 10.3 Absolute Nucleated RBC 0.000 Nucleated RBC % (auto) 0.0 Anion Gap 14 Estim Creat Clear Calc 58.4 Estimated GFR > 60 Random Glucose 110 Calcium 9.1 D Magnesium 1.9 Troponin I High Sens Urine Color Urine Appearance Urine pH Ur Specific [place] Urine Protein Urine Glucose (UA) Urine Ketones Urine Blood Urine Nitrite Ur Leukocyte Esterase Urine RBC Urine WBC Ur Squamous Epith Cells Urine Bacteria Hyaline Casts Stl C. cayetanensis PCR Not Detected Stool Rotavirus A PCR Not Detected Stl Adenov F 40 PCR Not Detected Stool Astrovirus (PCR) Not Detected Stool Campylobacter PCR Not Detected Stool Cryptosporidium PCR Not Detected Stl Sh Tox Pr E STEC PCR Not Detected Stool E coli O157 PCR Not applicable Stl Enterotoxigenic E PCR Not Detected Stool EPEC (PCR) Not Detected Stool EAEC (PCR) Not Detected Stl E. histolytica PCR Not Detected Stool Giardia Lamblia PCR Not Detected Stl P. shigelloides PCR Not Detected Stool Salmonella PCR Not Detected Stool Sapovirus (PCR) Not Detected Stl Shigella/EIEC PCR Not Detected St Y.enterocolitica PCR Detected A Stool Vibrio (PCR) Not Detected Stl Vibrio cholerae PCR Not Detected Stl Norovirus GI/GII PCR Not Detected C. difficile Tox B Gene NEGATIVE Influenza Type A (PCR) Influenza Type B (PCR) RSV RNA Qual (PCR) SARS-CoV-2 RNA (RT-PCR) Microbiology Microbiology Results: Microbiology 12/08/23 Unknown Urine Culture - Preliminary Urine clean catch - Urine mcclure top Culture in progress. 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 Pt will be admitted to the hospital for treatment and further evaluation of syncopal episode and generalized weakness in the setting of acute UTI. Syncopal episode Etiology unclear: Differential includes vasovagal vs dehydration/diarrhae. orthostatics neg continue ivf . seen by cardiology-Can follow-up as outpatient with her industrial engineering intern and have Holter monitor and echocardiogram performed. Diarrhae : no abd pain ,but has persistent diarrahe cdiff neg GIP-positive for yersinia entercolitica continue ivf,switched ceftriaxone to levaquin . ID eval possible dysuria /bacteruria -possible ?uti Patient does not meet sepsis criteria: Leukocytosis resolved, but no fever, tachycardia or tachypnea no urinary c/o,urine culture pending changed ceftriaxone to levaquin ( , started 12/09/2023) Id eval. Persistent AFib Continue metoprolol, Eliquis HLD/Hx of CVA Continue statin HTN Continue amlodipine, losartan GERD Continue pantoprazole Mood disorder Continue home meds DVT Prophylaxis: On Eliquis ongoing hospitalization need for treatment of?syncopal episode , diarrhae ,in setting of UTI with administration of IV antibiotics and close monitoring of cardiac function and vitals. Quality Stroke Does the patient have a stroke diagnosis?: No VTE Prior VTE?: No VTE Risk Level:: Medical - moderate - high VTE Device Contraindication: Treatment Not Indicated VTE Drug Contraindication: N/A - Med Ordered
[2023-12-09] MEDS: levoFLOXacin/D5W 500 MG/100 ML PIGGYBACK 100 MG IV (15:22)
--- NOTE | 2023-12-09 16:35 | P.CNID_ITS ---
History of Present Illness Data of Consult Service Date: 12/09/23 Requesting physician: Spencer Mccarthy Primary Care Provider: Jonna Soto MD HPI Reason for consult: chronic urinary incontinence,chronic diarrhea She presents after syncopal episoder in podiatry office. She cant give good history but says urinary incontinence at night. She was diagnosed E coli UTI last month and given antibiotics and then Cdiff reported. Now Cdiff negative and yersinia enterocolitica positive. She is not febrile. Review of Systems 2 Review of Systems: Yes all other systems are reviewed and are negative [facility] Past Medical History Medical History (Updated 12/09/23 @ 16:38 by Fay Mckee MD) Pyuria HLD (hyperlipidemia) Atrial fibrillation History of malignant melanoma History of basal cell carcinoma History of dysplastic nevus Degenerative joint disease (DJD) of hip Low back pain radiating to left lower extremity History of squamous cell carcinoma Venous insufficiency (chronic) (peripheral) Diarrhea Hypertension Family History Family History Father Throat cancer Mother Kidney failure Family history: reviewed and not pertinent Surgical History Surgical History H/O breast biopsy Hx of colonoscopy Hx of cholecystectomy Hx of appendectomy Social History Social History Household Members: Spouse Housing: House Alcohol intake: current Alcohol intake frequency: does not drink Alcohol type: wine Patient Tobacco Use Status: Never used Tobacco Smoked in Last 30 Days: No Use of substances other than those prescribed or required for medical reasons: No Currently Displaying Signs/Symptoms of Drug Intoxication Withdrawal: No Have you been hit, kicked, punched, or otherwise hurt by someone within the past year? If so, by whom?: No Do you feel safe in your current relationship?: Yes Is there a partner from a previous relationship who is making you feel unsafe now?: No Are you made to feel afraid or neglected: No Advance Directives: Yes Advance Directives on File: No Advance Directives Date on File: 11/02/23 Recently lost weight without trying: Yes How much weight loss: 2-13 pounds Eating poorly because of decreased appetite: Yes Nutrition screen score: 4 Patient : No : No Poor oral hygiene: No service: No Meds Allergies Allergy/AdvReac Type Severity Reaction Status Date / Time codeine Allergy Unknown rash Verified 11/01/23 13:54 Penicillins AdvReac Hives Verified 11/01/23 13:54 terbinafine [From Lamisil] AdvReac Hives Verified 11/01/23 13:54 Active Medications: Current Medications Acetaminophen (Acetaminophen 325 Mg Tablet) 650 mg PO Q6H PRN PRN Reason: Pain, Mild (Pain Scale 1-3) Apixaban (Apixaban 5 Mg Tablet) 5 mg PO BID [facility] Last Admin: 12/09/23 08:16 Dose: 5 mg Atorvastatin Calcium (Atorvastatin Calcium 80 Mg Tablet) 80 mg PO BEDTIME [facility] Last Admin: 12/08/23 23:01 Dose: 80 mg Benzonatate (Benzonatate 100 Mg Capsule) 100 mg PO TID PRN PRN Reason: Cough Docusate Sodium (Docusate Sodium 100 Mg Capsule) 100 mg PO DAILY PRN PRN Reason: Constipation Levofloxacin (Levaquin) 500 mg in 100 mls @ 100 mls/hr IV Q24H [facility] Last Titration: 12/09/23 16:28 Dose: 0 mls/hr Melatonin (Melatonin 3 Mg Tablet) 6 mg PO BEDTIME PRN PRN Reason: Insomnia Last Admin: 12/08/23 23:01 Dose: 6 mg Metoprolol Tartrate (Metoprolol Tartrate 25 Mg Tablet) 25 mg PO BID [facility]; Protocol Last Admin: 12/08/23 23:02 Dose: 25 mg Multivitamins/Vitamin C (Multivitamin Tablet) 1 tab PO DAILY [facility] Last Admin: 12/09/23 08:16 Dose: 1 tab Omeprazole (Omeprazole 20 Mg Capsule.Dr) 20 mg PO DAILY@0630 [facility] Last Admin: 12/09/23 05:59 Dose: 20 mg Ondansetron HCl (Ondansetron Hcl 4 Mg/2 Ml Vial) 4 mg IVPUSH Q8H PRN PRN Reason: Nausea and Vomiting Potassium Chloride (Potassium Chloride Er 20 Meq Tab.Er.Prt) 40 meq PO DAILY [facility] Last Admin: 12/09/23 08:16 Dose: 40 meq Sodium Chloride (0.9 % Sodium Chloride Flush 3 Ml Syringe) 3 ml IVFLUSH QSHIFT [facility] Last Admin: 12/09/23 15:23 Dose: 3 ml Trazodone HCl (Trazodone Hcl 50 Mg Tablet) 50 mg PO BEDTIME [facility] Last Admin: 12/08/23 23:02 Dose: 50 mg Home Medications Medication Instructions Recorded Confirmed Last Taken Type amlodipine 5 mg tablet 5 mg PO DAILY 10/01/23 12/08/23 12/08/23 History atorvastatin 80 mg tablet 80 mg PO BEDTIME 10/01/23 12/08/23 12/07/23 History losartan 50 mg tablet 50 mg PO DAILY 10/01/23 12/08/23 12/08/23 History axoxlcqavlqg-ffifkqbu-upyohv tablet 1 tab PO DAILY 10/01/23 12/08/23 12/08/23 History pantoprazole 40 mg tablet,delayed 40 mg PO DAILY@0630 10/01/23 12/08/23 12/08/23 History release trazodone 50 mg tablet 50 mg PO BEDTIME 10/01/23 12/08/23 12/07/23 History apixaban 5 mg tablet (Eliquis) 5 mg PO BID 10/10/23 12/08/23 12/08/23 History melatonin 3 mg tablet 6 mg PO BEDTIME Sleep 10/10/23 12/08/23 12/07/23 History metoprolol tartrate 50 mg tablet 25 mg PO BID 10/21/23 12/08/23 12/08/23 History nystatin 100,000 unit/gram topical 1 appl topical TID PRN Rash 10/21/23 12/08/23 Unknown History powder cranberry fruit 450 mg tablet 450 mg PO BID 12/08/23 12/08/23 Unknown History (cranberry) ketoconazole 2 % topical cream 1 appl topical BID PRN Rash 12/08/23 12/08/23 Unknown History zinc gluconate 50 mg tablet 50 mg PO DAILY 12/08/23 12/08/23 12/08/23 History Physical Exam 2 Vital Signs: Vital Signs: Last Vital Signs Temp 98.0 F 12/09/23 15:24 Pulse 74 12/09/23 15:24 Resp 16 12/09/23 15:24 BP 136/65 12/09/23 15:24 Pulse Ox 98 12/09/23 15:24 O2 Del Method Room Air 12/09/23 15:24 BMI result Body Mass Index 25.7 Results Labs 12/09/23 06:41 12/09/23 06:41 Labs: Short CBC 12/09/23 Range/Units 06:41 WBC 9.1 (4.8-10.8) X10*3/uL Hgb 11.7 L D (12.0-16.0) g/dl Hct 34.1 L (37.0-47.0) % Plt Count 276 (160-400) X10*3/uL BMP 12/09/23 06:41 Sodium 141 Potassium 2.9 L* Chloride 106 Carbon Dioxide 24 BUN 11 Creatinine 0.69 Calcium 9.1 D Urine 12/08/23 Range/Units 17:19 Urine Color Yellow Urine Appearance Cloudy Urine pH 6.0 (5.0-9.0) Ur Specific [place] 1.010 (1.005-1.025) Urine Protein Negative (Neg-Trace) mg/dL Urine Glucose (UA) Negative (Negative) mg/dL Microbiology Microbiology Results: Microbiology 12/08/23 Unknown Urine clean catch - Urine mcclure top Urine Culture - Preliminary Culture in progress. Assessment and Plan (1) Diarrhea: Status: Acute no cdiff often stools show yersinia enterocolitica,often goes away on own but sensitive to Bactrim and patient not allergic and Bactrim although concern for renal function in elderly is not Cdiffogenic. (2) Episode of syncope: Status: Acute (3) Right hemiparesis: Status: Acute (4) Pyuria: Status: Acute Not sure if urinary infection or colonization. Patient is incontinent Bactrim DS po bid for a week. Stop Levaquin as Cdiff may come back. With Bactrim Watch potassium as may rise and ?alternate bp med as may interact with ARB but will only be on for a week and benefit outweigns risk particularly if hypotensive due to diarrhea or UTI.
[2023-12-09] MEDS: Sulfamethox/Trimeth 800/160 TABLET 1 TAB PO (17:21)
[2023-12-09] MEDS: traZODone HCL 50 MG TABLET PO (20:38)
[2023-12-09] MEDS: Atorvastatin Calcium 80 MG TABLET PO (20:38)
[2023-12-10] VITALS (7 sets, daily range): BP systolic 126–149; BP diastolic 59–76; PULSE 84–87; RESP 16–18; TEMP 36.1–37.1; O2SAT 91–100
[2023-12-10] MEDS: 0.9 % Sodium Chloride Flush 3 ML SYRINGE IVFLUSH ×4 (01:34→21:24)
[2023-12-10] MEDS: Sulfamethox/Trimeth 800/160 TABLET 1 TAB PO ×2 (06:02→16:19)
[2023-12-10] MEDS: Omeprazole 20 MG CAPSULE.DR PO (06:03)
[2023-12-10] MEDS: Potassium Chloride ER 20 MEQ TAB.ER.PRT 40 MEQ PO (07:38)
[2023-12-10] MEDS: Apixaban 5 MG TABLET PO ×2 (07:39→21:23)
[2023-12-10] MEDS: Multivitamin TABLET 1 TAB PO (07:39)
[2023-12-10 09:34] LABS: Anion Gap 18 (12-20); Blood Urea Nitrogen 11 mg/dL (9-16); Calcium 9.9 mg/dL (8.4-10.2); Carbon Dioxide 21 mmol/L (22-29); Chloride 107 mmol/L (96-108); Estimated Glomerular Filt Rate > 60; Glucose Random 106 mg/dL (60-115); Potassium 3.5 mmol/L (3.3-5.1); Sodium 142 mmol/L (135-145)
--- NOTE | 2023-12-10 15:27 | P.PNIM_ITS ---
Subjective Subjective Date of Service: 12/10/23 Interval History: enterocolitis Review of Systems diarrhae somewhat improving no fever or abd pain Physical Exam 2 Vital Signs: Vital Signs: Last Vital Signs Temp 97.4 F 12/10/23 11:33 Pulse 84 12/10/23 11:33 Resp 16 12/10/23 11:33 BP 126/60 12/10/23 11:33 Pulse Ox 100 12/10/23 11:33 O2 Del Method Room Air 12/10/23 11:33 BMI result Body Mass Index 25.7 Appearance: Alert.? Oriented X3. cvs: rrr, [id number] . res: clear to auscultation ,no rhonchii or wheezing abd: no rebound or guarding ,nt, bs present. ext pulses present , no cyanosis neuro: axo3 , nonfocal. Objective Data Active Medications Acetaminophen (Acetaminophen 325 Mg Tablet) 650 mg PO Q6H PRN PRN Reason: Pain, Mild (Pain Scale 1-3) Apixaban (Apixaban 5 Mg Tablet) 5 mg PO BID [facility] Last Admin: 12/10/23 07:39 Dose: 5 mg Documented By: VALERIE Atorvastatin Calcium (Atorvastatin Calcium 80 Mg Tablet) 80 mg PO BEDTIME [facility] Last Admin: 12/09/23 20:38 Dose: 80 mg Documented By: STEVE Benzonatate (Benzonatate 100 Mg Capsule) 100 mg PO TID PRN PRN Reason: Cough Docusate Sodium (Docusate Sodium 100 Mg Capsule) 100 mg PO DAILY PRN PRN Reason: Constipation Melatonin (Melatonin 3 Mg Tablet) 6 mg PO BEDTIME PRN PRN Reason: Insomnia Last Admin: 12/08/23 23:01 Dose: 6 mg Documented By: SHELBY Metoprolol Tartrate (Metoprolol Tartrate 25 Mg Tablet) 25 mg PO BID [facility]; Protocol Last Admin: 12/08/23 23:02 Dose: 25 mg Documented By: SHELBY Multivitamins/Vitamin C (Multivitamin Tablet) 1 tab PO DAILY [facility] Last Admin: 12/10/23 07:39 Dose: 1 tab Documented By: VALERIE Omeprazole (Omeprazole 20 Mg Capsule.) 20 mg PO DAILY@0630 [facility] Last Admin: 12/10/23 06:03 Dose: 20 mg Documented By: STEVE Ondansetron HCl (Ondansetron Hcl 4 Mg/2 Ml Vial) 4 mg IVPUSH Q8H PRN PRN Reason: Nausea and Vomiting Potassium Chloride (Potassium Chloride Er 20 Meq Tab.Er.Prt) 40 meq PO DAILY [facility] Last Admin: 12/10/23 07:38 Dose: 40 meq Documented By: VALERIE Sodium Chloride (0.9 % Sodium Chloride Flush 3 Ml Syringe) 3 ml IVFLUSH QSHIFT [facility] Last Admin: 12/10/23 07:39 Dose: 3 ml Documented By: VALERIE Trazodone HCl (Trazodone Hcl 50 Mg Tablet) 50 mg PO BEDTIME [facility] Last Admin: 12/09/23 20:38 Dose: 50 mg Documented By: STEVE Trimethoprim/Sulfamethoxazole (Sulfamethox/Trimeth 800/160 Tablet) 1 tab PO Q12H [facility] Last Admin: 12/10/23 06:02 Dose: 1 tab Documented By: STEVE Labs 12/09/23 06:41 12/10/23 08:27 Labs: Laboratory Results - last 24 hr 12/10/23 08:27 Anion Gap 18 Estim Creat Clear Calc 51.0 Estimated GFR > 60 Random Glucose 106 Calcium 9.9 D Microbiology Microbiology Results: Microbiology 12/08/23 Unknown Urine Culture - Preliminary Urine clean catch - Urine mcclure top Gram negative warren Assessment and Plan (1) Episode of syncope: Status: Acute (2) Syncope, vasovagal: Status: Acute (3) Diarrhea: Status: Acute Plan 83 y/o F with pmhx persistent AFib on Eliquis, hx of MCA stroke with 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 Pt will be admitted to the hospital for treatment and further evaluation of syncopal episode and generalized weakness in the setting of acute UTI. Syncopal episode Etiology unclear: Differential includes vasovagal vs dehydration/diarrhae. orthostatics neg continue ivf . seen by cardiology-Can follow-up as outpatient with her correspondence analyst and have Holter monitor and echocardiogram performed. Diarrhae : no abd pain ,but has persistent diarrahe cdiff neg GIP-positive for yersinia entercolitica continue ivf,switched ceftriaxone to bactrim . ID eval possible dysuria /bacteruria -possible ?uti Patient does not meet sepsis criteria: Leukocytosis resolved, but no fever, tachycardia or tachypnea no urinary c/o,urine culture pending changed ceftriaxone to levaquin ( , started 12/09/2023) Id eval. Persistent AFib Continue metoprolol, Eliquis HLD/Hx of CVA Continue statin HTN Continue amlodipine, losartan GERD Continue pantoprazole Mood disorder Continue home meds DVT Prophylaxis: On Eliquis ongoing hospitalization need for treatment of?syncopal episode , diarrhae - enterocolitis (yersinia enterocolitics )in setting of ?UTI with administration of IV antibiotics and close monitoring of cardiac function and vitals. Quality Stroke Does the patient have a stroke diagnosis?: No VTE Prior VTE?: No VTE Risk Level:: Medical - moderate - high VTE Device Contraindication: Treatment Not Indicated VTE Drug Contraindication: N/A - Med Ordered
[2023-12-10] MEDS: traZODone HCL 50 MG TABLET PO (21:23)
[2023-12-10] MEDS: Atorvastatin Calcium 80 MG TABLET PO (21:23)
[2023-12-11 03:12] VITALS: BP 151/71; PULSE 88; RESP 16; TEMP 36.4; O2SAT 100
[2023-12-11] MEDS: Sulfamethox/Trimeth 800/160 TABLET 1 TAB PO (06:14)
[2023-12-11] MEDS: Omeprazole 20 MG CAPSULE.DR PO (06:14)
[2023-12-11 07:19] VITALS: BP 132/79; PULSE 81; RESP 18; TEMP 36.7; O2SAT 99
[2023-12-11] MEDS: Multivitamin TABLET 1 TAB PO (10:05)
[2023-12-11] MEDS: Apixaban 5 MG TABLET PO (10:05)
[2023-12-11] MEDS: 0.9 % Sodium Chloride Flush 3 ML SYRINGE IVFLUSH (10:05)
[2023-12-11 11:03] VITALS: BP 140/60; PULSE 77; RESP 18; TEMP 36.2; O2SAT 98
--- NOTE | 2023-12-11 13:15 | P.DS_ITS ---
DS: Providers Provider Date of Service: 12/11/23 Date of admission: 12/08/23 20:00 Date of discharge: 12/11/23 Primary care physician: Jonna Soto MD Consults: 12/09/23 01:33 Consult to Cardiology Routine Consulting Provider: [facility] Cardiovascular Services Reason for consultation: Syncope, 3.6 secs pause noted around 1 am Has provider been notified: Yes 12/09/23 11:58 Consult to Infectious Diseases Routine Consulting Provider: [facility] Infectious Disease Reason for consultation: cdiff ,uti Has provider been notified: No Attending physician on discharge: Spencer Mccarthy Discharging clinician: Spencer Mccarthy DS: Diagnosis Discharge Diagnosis (1) Episode of syncope: Status: Acute (2) Syncope, vasovagal: Status: Acute (3) Diarrhea: Status: Acute DS: Summary Hospital Course Hospital Course: 83-year-old female with a PMH significant for?persistent AFib on Eliquis, 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 Pt apparently had a large amount of diarrhea while in the bathroom when she suddenly felt weak, vomited, and syncopized for approximately 20 seconds. Episode was witnessed by daughter who contacted EMS. No headstrike. Pt herself denies any prodrome of symptoms: No fever, chills, lightheadedness, dizziness. Denies any belly pain. Patient denies having episode like this before, but states she has had chronic diarrhea since suffering a stroke in July of 2023. Patient also denies polyuria or dysuria. Reports that she tries to drink enough fluids. Patient continues to be visited by VNA who help with bathing and ambulation. Patient uses both wheelchair and walker at baseline. Patient currently denies any acute medical complaints. Says she overall feels ?fine?. No chest pain/pressure, palpitations. Denies shortness of breath. No headache, acute vision changes. Has not had any repeat episodes of diarrhea since at the forensics analyst's office. Of note,?patient was admitted to the hospital 1 month ago on 11/01-11/03 and treated for C diff. In the ED pt with slightly soft BP of 121/47, vitals otherwise WNL Labs were significant for leukocytosis of 17.2, AST 36, and ALT 32. Stable H&H. No electrolyte abnormalities. Troponin 72 with repeat flat 5.1. UA positive for UTI. Tested negative for influenza type a and B, RSV, COVID. CXR showed very slight bronchial thickening which can be seen in setting of infectious/inflammatory etiology. EKG demonstrated AFib with ST and T-wave abnormalities, but no significant ST elevations or depressions. Pt was treated with IVF. Pt will be admitted to the hospital for treatment and further evaluation of syncopal episode and generalized weakness in the setting of acute UTI. Hospital course: Patient came to the hospital because possible syncopal episode, pyuria, diarrhea: Patient says that she is having diarrhea for almost few weeks , found to have leukocytosis, hypokalemia, also urine analysis showed pyuria/bacteriuria but patient denies any urinary complaints. 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 Patient diarrhea seems to be improved significantly since on antibiotics.discussed with Id- urine cultures and Gi panel reviewed -patient will complete bactrim for enterocolitis , less likley uti since she is asymptomatic ,No recheck urine unless unrinary symptoms of fever or leukocytosis. Hypokalemia repleted and resolved. Monitor renal function and lytes outpatient. Syncopal episode:seen by cardiology: Possible vasovagal versus volume depletion related secondary to diarrhea. Patient telemetry tran seems fine, with hydration and improved p.o. 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 htn : blood pressure flacuting in setting of recent setting of recent volume depletion due to diarrhae: amlodipine adjusted to 2.5 mg daily , hold losartan for 1 week in setting of recent volume depletion due to diarrhae and syncope ,moniter renal fucntion and electrolytes outpatient. Monitor blood pressure closely, if persistently above 140mmhg-consider adjusting amlodipine outpatient. patient has vna plan: Complete bacterim 1 tab po bid for 8more days. moniter renal fucntion and electrolytes outpatient. 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 htn -amlodipine adjusted to 2.5 mg daily , hold losartan for 1 week in setting of recent volume depletion due to diarrhae and syncope ,moniter renal fucntion and electrolytes outpatient. Monitor blood pressure closely, if persistently above 140mmhg-consider adjusting amlodipine outpatient. Above management discussed with the patient in detail length and her daughter they both understand and in agreement with the above plan, time spent 50 minute. Time Attestation Discharge coordination time: Greater than 30 minutes Quality: Safe Use of Opioids Does Pt have an Active Cancer Diagnosis on the Problem List?: No Quality: Stroke Does the patient have a stroke diagnosis?: No Physical Exam Vital Signs: Vital Signs: Last Vital Signs Temp 97.2 F 12/11/23 11:03 Pulse 77 12/11/23 11:03 Resp 18 12/11/23 11:03 BP 140/60 H 12/11/23 11:03 Pulse Ox 98 12/11/23 11:03 O2 Del Method Room Air 12/11/23 11:03 BMI result Body Mass Index 25.7 Appearance: Alert.? Oriented X3. cvs: rrr, [id number] . res: clear to auscultation ,no rhonchii or wheezing abd: no rebound or guarding ,nt, bs present. ext pulses present , no cyanosis neuro: axo3 , nonfocal. DS: Data Imaging Chest x-ray: Radiologist's impression: ITS Impressions Chest X-Ray 12/08/23 12:06 IMPRESSION: 1. Slight elevation the right hemidiaphragm. 2. Very slight bronchial thickening which can be seen in the setting of infectious/inflammatory etiology. Discharge Plan Discharge Anticipated Discharge Date/Time: 12/11/23 12:51 Patient Disposition: Home Health Service Discharge Diagnosis: syncope ,enetrocolitis Referrals: [facility] Cardiovascular Services [Provider Group] [facility] [Outside] - 1 Week Jonna Dillard MD [Primary Care Provider] - 1 Week Discharge Medications: New sulfamethoxazole-trimethoprim 800-160 mg Tablet 1 tab PO Q12H Qty: 17 0RF Continued (DME) Ultra-Light Rollator Misc See Rx Instructions .Route Qty: 1 0RF Rx Instructions: As directed metoprolol tartrate 50 mg tablet 25 mg PO BID nystatin 100,000 unit/gram powder 1 appl topical TID PRN (Reason: Rash) potassium chloride 20 mEq tablet extended release 40 meq PO DAILY Qty: 10 0RF Rx Instructions: take for 4 days than check labs ketoconazole 2 % cream 1 appl topical BID PRN (Reason: Rash) zinc gluconate 50 mg tablet 50 mg PO DAILY cranberry 450 mg Tablet 450 mg PO BID Rx Instructions: administer with meals atorvastatin 80 mg tablet 80 mg PO BEDTIME trazodone 50 mg tablet 50 mg PO BEDTIME pantoprazole 40 mg tablet,delayed release (DR/EC) 40 mg PO DAILY@0630 [id number] Tablet 1 tab PO DAILY Eliquis 5 mg tablet 5 mg PO BID melatonin 3 mg tablet 6 mg PO BEDTIME Changed amlodipine 5 mg tablet 2.5 mg PO DAILY Qty: 30 0RF Held losartan 50 mg tablet 50 mg PO DAILY Hold Instructions: Resume on 12/20/23. Discharge Orders: Discharge Order (Routine); Ordered 12/11/23 Ordered By: Spencer Mccarthy Diet: Advance to usual diet Activity on Discharge: As tolerated Stand Alone Forms: Patient Portal Discharge page Other Ambulatory Orders: Basic Metabolic Panel (Routine) Timeframe: 1 Week Facility: [facility] - Location: Laboratory Ordered By: Spencer Mccarthy Care Plan Goals: Patient came to the hospital because possible syncopal episode, pyuria, diarrhea: Patient says that she is having diarrhea for almost few weeks , found to have leukocytosis, hypokalemia, also urine analysis showed pyuria/bacteriuria but patient denies any urinary complaints. 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 Patient diarrhea seems to be improved significantly since on antibiotics. discussed with Id- urine cultures and Gi panel reviewed -patient will complete bactrim for enterocolitis , less likley uti since she is asymptomatic ,No recheck urine unless unrinary symptoms of fever or leukocytosis Syncopal episode:seen by cardiology: Possible vasovagal versus volume depletion related secondary to diarrhea. Patient telemetry tran seems fine, with hydration and improved p.o. 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 htn : blood pressure flacuting in setting of recent setting of recent volume depletion due to diarrhae: amlodipine adjusted to 2.5 mg daily , hold losartan for 1 week in setting of recent volume depletion due to diarrhae and syncope ,moniter renal fucntion and electrolytes outpatient. Monitor blood pressure closely, if persistently above 140mmhg-consider adjusting amlodipine outpatient. patient has vna Health Concerns: Complete bacterim 1 tab po bid for 8more days. moniter renal fucntion and electrolytes outpatient. 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 Plan of Treatment: as above. Assessment: as above. Patient Instructions: A-fib (Atrial Fibrillation) (ED), Syncope (ED), Near Syncope (ED)
--- NOTE | 2023-12-11 13:47 | W.MHC.F2F ---
Service Date Service Date: 12/11/23 Encounter Date of encounter: 12/11/23 Encounter: Enterocolitis Reasons for Services Signs and symptoms assessed: Diarrhea Reason for physical therapy: home safety and mobility, therapeutic exercises, restore joint function, gait/transfer training, assess need for DME, ADL training, energy conservation and other MD Overseeing Care: Jonna Soto Homebound: Leaving the home is medically contraindicated at this time without the asist of a device and/or another person due th the listed conditions above and below. Reason homebound: weakness related to hospital stay Homebound supporting statement: Patient has multiple comorbidities, generalized weak post hospitalization stay-already has VNA and OT with [facility], need PT. Certification: Based on the above findings, I certify that this patient is confined to the home and needs intermittent usp care, physical therapy and/or speech therapy, or continues to need occupational therapy. The patient is under my care, and I have initiated the establishment of the plan of care. The patient will be followed by a physician who will periodically review the plan of care. Time Spent With Patient Time: Total time managing care of this patient today ____ minutes.
--- NOTE | 2023-12-11 15:42 | MHC.CM.PN ---
PT DISCHARGED HOME TODAY WITH [facility]UMPTION OF [facility] AND FACE TO FACE SENT TO [facility] TO PROVIDE TRANSPORT
== END 2023-12-11 14:27 | disposition home health service (06) | DRG 372 ==
LOC: HO.ED 19:29 → HO.EDOVER 20:21 → HO.IMC 20:32
PROVIDERS: Physician Assistant Medical; Admitting Provider Student in an Organized Health Care Education/Training Program; Emergency Provider Emergency Medicine; PCP Internal Medicine; Visit Provider Internal Medicine
DX: A04.6 Enteritis due to Yersinia enterocolitica (principal); I48.19 Other persistent atrial fibrillation; N39.0 Urinary tract infection, site not specified; I69.351 Hemiplegia and hemiparesis following cerebral infarction affecting right dominant side; E78.5 Hyperlipidemia, unspecified; E86.9 Volume depletion, unspecified; K21.9 Gastro-esophageal reflux disease without esophagitis; F39 Unspecified mood [affective] disorder; E87.6 Hypokalemia; Z20.822 Contact with and (suspected) exposure to COVID-19; Z88.0 Allergy status to penicillin; Z79.01 Long term (current) use of anticoagulants; Z79.899 Other long term (current) drug therapy
CPT/HCPCS: 0241U; 36415; 71046; 80048; 80053; 81001; 83735; 84484; 85025; 85027; 87086; 87088; 87186; 87493; 87507; 93005; 97110; 97116; 97162; 99285; J0696; J1956

== ENCOUNTER → 2023-12-08 09:14 | Outpatient (BNV) | payer MEDICARE, SELFPAY | PROVIDERS: PCP Internal Medicine; Visit Provider Internal Medicine Cardiovascular Disease | DX: I48.91 Unspecified atrial fibrillation (principal) | CPT/HCPCS: 93010 ==

== ENCOUNTER → 2023-12-08 20:00 | Outpatient (BNV) | payer MEDICARE, SELFPAY | PROVIDERS: Admitting Provider Student in an Organized Health Care Education/Training Program; Emergency Provider Emergency Medicine; PCP Internal Medicine; Visit Provider Internal Medicine Cardiovascular Disease | DX: R55 Syncope and collapse (principal); I48.91 Unspecified atrial fibrillation | CPT/HCPCS: 99222 ==

== ENCOUNTER → 2023-12-08 20:00 | Outpatient (BNV) | payer MEDICARE, SELFPAY | PROVIDERS: Admitting Provider Student in an Organized Health Care Education/Training Program; Emergency Provider Emergency Medicine; PCP Internal Medicine; Visit Provider Internal Medicine | DX: R19.7 Diarrhea, unspecified (principal); R55 Syncope and collapse; G81.91 Hemiplegia, unspecified affecting right dominant side; R82.81 Pyuria | CPT/HCPCS: 99222 ==

== ENCOUNTER → 2023-12-08 20:00 | Outpatient (BNV) | payer MEDICARE, SELFPAY | PROVIDERS: Admitting Provider Student in an Organized Health Care Education/Training Program; Emergency Provider Emergency Medicine; PCP Internal Medicine; Visit Provider Internal Medicine | DX: R55 Syncope and collapse (principal); R19.7 Diarrhea, unspecified | CPT/HCPCS: 99223; 99231; 99232; 99239; G0180 ==

== ENCOUNTER 2023-12-17 12:49 | Outpatient (REF) | payer MEDICARE, SELFPAY ==
[2023-12-17 14:44] LABS: Anion Gap 15 (12-20); Blood Urea Nitrogen 13 mg/dL (9-16); Calcium 9.7 mg/dL (8.4-10.2); Carbon Dioxide 22 mmol/L (22-29); Chloride 106 mmol/L (96-108); Estimated Glomerular Filt Rate 53; Glucose Random 103 mg/dL (60-115); Potassium 3.8 mmol/L (3.3-5.1); Sodium 139 mmol/L (135-145)
== END 2023-12-17 12:50 | disposition home or self-care (01) ==
LOC: HO.LAB 12:49
PROVIDERS: PCP Internal Medicine; Visit Provider Internal Medicine
DX: R19.7 Diarrhea, unspecified (principal); E87.6 Hypokalemia
CPT/HCPCS: 36415; 80048

== ENCOUNTER 2023-12-20 13:21 | Outpatient (AMB) | payer MEDICARE, SELFPAY ==
--- NOTE | 2023-12-20 13:22 | A.OFFVIS_ITS ---
Intake Vital Signs 12/20/23 14:02 Weight 144 lb Pulse 69 Pulse Source Pulse Oximeter Temp 97.4 F Temp Source Oral Pulse Oximetry (%) 99 Intake Visit Reasons: reff list syncope/uti Allergies codeine Allergy (Unknown, Verified 12/20/23 13:57) rash Penicillins Adverse Reaction (Verified 12/20/23 13:57) Hives terbinafine [From Lamisil] Adverse Reaction (Verified 12/20/23 13:57) Hives HPI reff list syncope/uti HPI Details She has been doing well. She has no dysuria. She has no complaints. COUNTS INCLUDE 234 BEDS AT THE [facility] Medical History Pyuria Episode of syncope Urinary tract infection Syncope, vasovagal Atrial fibrillation Right hemiparesis HLD (hyperlipidemia) Atrial fibrillation History of malignant melanoma History of basal cell carcinoma History of dysplastic nevus Degenerative joint disease (DJD) of hip Low back pain radiating to left lower extremity History of squamous cell carcinoma Venous insufficiency (chronic) (peripheral) Diarrhea Hypertension Surgical History H/O breast biopsy Hx of colonoscopy Hx of cholecystectomy Hx of appendectomy Family History Father Throat cancer Mother Kidney failure Social History Household Members: Spouse Housing: House Alcohol intake: current Alcohol intake frequency: does not drink Alcohol type: wine Patient Tobacco Use Status: Never used Tobacco Advance Directives Date on File: 11/02/23 service: No Review of Systems Const All systems reviewed & are unremarkable except as noted in HPI and below Physical Exam Vital Signs: Last Vital Signs Temp 97.4 F 12/20/23 14:02 Pulse 69 12/20/23 14:02 Pulse Ox 99 12/20/23 14:02 Const General: cooperative Orientation/consciousness: patient oriented x3 HEENT Head: Yes normal to inspection Mouth: Normal oral and palatal mucosa present Eyes General: appearance normal, both eyes and all related structures Pupils: Equal, round and reactive pupils present Resp Effort & Inspection: normal respiratory effort Cardio Rate: regular rate Rhythm: regular rhythm GI Palpation (GI): Soft to palpation and nontender General: Yes no CVA tenderness Back/Spine/Pelvis Back: no CVA tenderness Skin General skin exam: no rashes or lesions noted Neuro General: patient oriented x3 Cranial nerves: Yes CN's II-XII intact bilaterally and Yes Equal, round and reactive pupils present Extrem General: Yes normal to inspection Psych Appearance: grossly normal Assessment & Plan Assessment & Plan (1) Diarrhea: Comment: She has diarrhea only. Code(s): R19.7 - Diarrhea, unspecified Plan: Would check for Cdiff and see prn need. Orders: Orders CDiff Gene PCR 12/21/23 R19.7 - Diarrhea, unspecified Coding Level of Care Code Est Pt Level 3 (81225) Diagnoses Diarrhea R19.7
[2023-12-20 14:02] VITALS: PULSE 69; TEMP 36.3; O2SAT 99
== END 2023-12-20 15:10 | disposition home or self-care (01) ==
PROVIDERS: PCP Internal Medicine; Visit Provider Internal Medicine
DX: R19.7 Diarrhea, unspecified (principal)
CPT/HCPCS: 99213

== ENCOUNTER → 2023-12-20 13:21 | Outpatient (BNVA) | payer MEDICARE, SELFPAY | PROVIDERS: PCP Internal Medicine; Visit Provider Internal Medicine | DX: R19.7 Diarrhea, unspecified (principal) | CPT/HCPCS: 99212 ==

== ENCOUNTER 2023-12-21 07:31 | Outpatient (REF) | payer MEDICARE, SELFPAY ==
[2023-12-21 09:03] LABS: CDiff Gene PCR NEGATIVE (Negative)
== END 2023-12-21 07:32 | disposition home or self-care (01) ==
LOC: HO.LNP 07:31
PROVIDERS: Visit Provider Internal Medicine
DX: R19.7 Diarrhea, unspecified (principal)
CPT/HCPCS: 87493

== ENCOUNTER 2023-12-27 14:41 | Outpatient (AMB) | payer MEDICARE, SELFPAY ==
--- NOTE | 2023-12-27 14:48 | A.OFFVIS_ITS ---
Intake Intake Visit Reasons: F/U.Lab Allergies codeine Allergy (Unknown, Verified 12/20/23 13:57) rash Penicillins Adverse Reaction (Verified 12/20/23 13:57) Hives terbinafine [From Lamisil] Adverse Reaction (Verified 12/20/23 13:57) Hives HPI F/U.Lab HPI Details She has baseline diarrhea according to daughter. She has no fever or chills. Cdiff positive 10/2023 and negative 12/09/2023 and 12/21/2023. [facility] Medical History Pyuria Episode of syncope Urinary tract infection Syncope, vasovagal Atrial fibrillation Right hemiparesis HLD (hyperlipidemia) Atrial fibrillation History of malignant melanoma History of basal cell carcinoma History of dysplastic nevus Degenerative joint disease (DJD) of hip Low back pain radiating to left lower extremity History of squamous cell carcinoma Venous insufficiency (chronic) (peripheral) Diarrhea Hypertension Surgical History H/O breast biopsy Hx of colonoscopy Hx of cholecystectomy Hx of appendectomy Family History Father Throat cancer Mother Kidney failure Social History Household Members: Spouse Housing: House Alcohol intake: current Alcohol intake frequency: does not drink Alcohol type: wine Patient Tobacco Use Status: Never used Tobacco Advance Directives Date on File: 11/02/23 service: No Review of Systems Const All systems reviewed & are unremarkable except as noted in HPI and below Assessment & Plan Assessment & Plan (1) C. difficile diarrhea: Code(s): A04.72 - Enterocolitis due to Clostridium difficile, not specified as recurrent Plan She is improving. She has negative Cdiff No Cdiff treatment at this time. Can continue cranberry fruit. See again as needed. Coding Level of Care Code Tele New Pt Level 3 (79366) Diagnoses C. difficile diarrhea A04.72
== END 2023-12-27 14:57 | disposition home or self-care (01) ==
LOC: HO.HID 14:42
PROVIDERS: PCP Internal Medicine; Visit Provider Internal Medicine
DX: A04.72 Enterocolitis due to Clostridium difficile, not specified as recurrent (principal)
CPT/HCPCS: 99213

== ENCOUNTER → 2023-12-27 14:41 | Outpatient (BNVA) | payer MEDICARE, SELFPAY | PROVIDERS: PCP Internal Medicine; Visit Provider Internal Medicine | DX: A04.72 Enterocolitis due to Clostridium difficile, not specified as recurrent (principal) | CPT/HCPCS: 99212 ==

== ENCOUNTER 2024-01-21 14:29 | Outpatient (AMB) | payer MEDICARE, SELFPAY ==
--- NOTE | 2024-01-21 14:39 | A.OFFVIS_ITS ---
Intake Vital Signs 01/21/24 14:41 Weight 141 lb Pulse 77 Pulse Source Pulse Oximeter Pulse Oximetry (%) 100 Oxygen Delivery Method Room Air Intake Visit Reasons: 3 mo f/u CVA- Conf Intake Note: Patient presents for 3 month follow up. Patient wants to ask something about her feet. Allergies codeine Allergy (Unknown, Verified 01/21/24 14:42) rash Penicillins Adverse Reaction (Verified 01/21/24 14:42) Hives terbinafine [From Lamisil] Adverse Reaction (Verified 01/21/24 14:42) Hives Medication List - Last Reconciled 01/21/24 by Rossy Alvarez, PAIGE amlodipine 2.5 mg (1/2 x 5 mg) PO DAILY apixaban (Eliquis) 5 mg PO BID atorvastatin 80 mg PO BEDTIME cranberry fruit (cranberry) 450 mg PO BID ketoconazole 2% 1 appl topical BID PRN loperamide 4 mg PO BID losartan 50 mg PO DAILY melatonin 6 mg PO BEDTIME metoprolol tartrate 25 mg PO BID zwhdvbdimtbq-ynxpysoe-wsjyev 1 tab PO DAILY nystatin 1 appl topical TID PRN pantoprazole 40 mg PO DAILY@0630 potassium chloride ER 40 mEq (2 x 20 mEq) PO DAILY sulfamethoxazole-trimethoprim 800-160 mg 1 tab PO Q12H trazodone 50 mg PO BEDTIME walker (Ultra-Light Rollator misc) As directed zinc gluconate 50 mg PO DAILY HPI HPI Comments History of Present Illness Details 83-yr-old female presents for f/u visit for post-stroke f/u. Pt is accompanied by her son. In Oct, pt has hospitalization for persistent hypokalemia, diarrhea d/t C-diff. Per pt, diarrhea started during her post-hospital rehab stay in Aug. At the end of Nov, pt had another [facility] hospitalization r/t GI infection- yersinia enterocolitica positive diarrhea causing syncopal episode in Nov. She has been followed by infectious disease, and this has been improving. Brain MRI showed Left MCA territory encephalomalacia. Holter monitor did show paroxysmal A-fib, and pt was advised to continue Eliquis as she has good rate control. She is f/b [facility]- [facility] clinic. She has done home PT/OT, and is transitioning to out-pt PT/OT/MENTAL HEALTH NURSE PRACTITIONER- at [facility]. Cognition is stable since last visit. STM lapses. Pt lives w/ family. Walking w/ walker. Her GI s/s have improved- now soft stools but no diarrhea. Today, the patient would like to discuss BLE pain. States she saw her japanese tutor recently who advised her to talk w/ us about this. The BLE pain started during her post-stroke rehab stay in Aug 2023. She feels toes pain, cramping, pins and needles, coldness- worse when laying down. Denies numbness. She did have a LLE vascualr procedure w/ Dr Beltran- possibly in the last year-few years. Sleeps with a blanket around her feet. However, does not like any sock on her foot as this causes cramping. Denies peripheral swelling. Does not walk barefoot. 11/01/13- MR/MR head/brain wo con IMPRESSION: Interval development of encephalomalacia/gliosis throughout the left MCA territory corresponding to known prior left M1 occlusion. No restricted diffusion to indicate acute infarction. [facility] Medical History (Updated 01/21/24 @ 16:41 by PAIGE Glass) Pyuria Episode of syncope Urinary tract infection Syncope, vasovagal Atrial fibrillation Right hemiparesis HLD (hyperlipidemia) Atrial fibrillation History of malignant melanoma History of basal cell carcinoma History of dysplastic nevus Degenerative joint disease (DJD) of hip Low back pain radiating to left lower extremity History of squamous cell carcinoma Venous insufficiency (chronic) (peripheral) Diarrhea Hypertension Surgical History H/O breast biopsy Hx of colonoscopy Hx of cholecystectomy Hx of appendectomy Family History Father Throat cancer Mother Kidney failure Social History Household Members: Spouse Housing: House Alcohol intake: current Alcohol intake frequency: does not drink Alcohol type: wine Patient Tobacco Use Status: Never used Tobacco Advance Directives Date on File: 11/02/23 service: No Review of Systems Const All systems reviewed & are unremarkable except as noted in HPI and below Physical Exam Vital Signs: Last Vital Signs Pulse 77 01/21/24 14:41 Pulse Ox 100 01/21/24 14:41 Oxygen Delivery Method Room Air 01/21/24 14:41 Const General: cooperative and no acute distress HEENT Head: Yes normocephalic Resp Effort & Inspection: normal respiratory effort and able to speak in complete sentences Neuro Other: Alert & Oreinted w/ STM lapses, and some difficulties following sequencing and conversation. Right lower facial, RUE weakness. Mild dysarthria. Stands ok, steady gait w/ walker. Left lower extremity: Distal coolness and mild purplish discoloration. Dec reased light touch, sharp sensation, and vibration. Decreased proprioception with big toe pointing downward, however intact with upward movement. Left ankle rigidity. Right lower extremity: Distal coolness but no discoloration. Decreased light touch, sharp sensation, and vibration sensation- less prominent than on left. Cognition (Neuro): normal cognition Deep tendon reflexes (DTR's): Right patellar reflex intensity grade: 3+ and Left patellar reflex intensity grade: 2+ Psych Appearance: grossly normal Mental Status: mental status grossly normal Speech and movement: Normal speech and movement present Affect: normal affect Attitude: cooperative Thought process: Normal thought process present Thought content: Normal thought content present Insight: Good insight present (Psych) Judgement: Good judgement present (Psych) Assessment & Plan Assessment & Plan (1) History of ischemic left MCA stroke: Comment: 08/10/23 Code(s): Z86.73 - Personal history of transient ischemic attack (TIA), and cerebral infarction without residual deficits (2) Paresthesia of both lower extremities: Code(s): R20.2 - Paresthesia of skin (3) Leg cramps: Code(s): R25.2 - Cramp and spasm (4) Anemia: Code(s): D64.9 - Anemia, unspecified (5) Paroxysmal atrial fibrillation: Code(s): I48.0 - Paroxysmal atrial fibrillation (6) Venous insufficiency (chronic) (peripheral): Comment: f/b Dr Beltran Code(s): I87.2 - Venous insufficiency (chronic) (peripheral) Plan Reviewed brain MRI: Expected left MCA territory changes. Continue optimized CV risk reduction strategies- ASA, Eliquis, statin, amlodipine, losartan. Follow-up with cardiology as scheduled. Concur with starting outpatient PT, OT, MENTAL HEALTH NURSE PRACTITIONER therapy. For bilateral lower extremity, left more so than right, pain, paresthesias and coolness: Future considerations: sleep study. Will check labs for systemic etiologies, especially for nutritional deficiencies as patient has had extensive diarrhea over the past several months. For now, try gabapentin 100-300 mg q.h.s. for symptomatic relief. Future considerations: EMG/NCS. Referring patient back for vascular consult with Dr. Beltran. Follow-up upon review of above and in 6 months or sooner in clinic. Orders: Orders Complete Blood Count Auto Diff Today D64.9 - Anemia, unspecified, R19.7 - Diarrhea, unspecified, R20.2 - Paresthesia of skin, R25.2 - Cramp and spasm Ferritin Today D64.9 - Anemia, unspecified, R19.7 - Diarrhea, unspecified, R20.2 - Paresthesia of skin, R25.2 - Cramp and spasm IRON PROFILE Today D64.9 - Anemia, unspecified, R19.7 - Diarrhea, unspecified, R20.2 - Paresthesia of skin, R25.2 - Cramp and spasm Creatine Kinase Total Today D64.9 - Anemia, unspecified, R19.7 - Diarrhea, unspecified, R20.2 - Paresthesia of skin, R25.2 - Cramp and spasm Vitamin A Today D64.9 - Anemia, unspecified, R19.7 - Diarrhea, unspecified, R20.2 - Paresthesia of skin, R25.2 - Cramp and spasm Vitamin B1 Today D64.9 - Anemia, unspecified, R19.7 - Diarrhea, unspecified, R20.2 - Paresthesia of skin, R25.2 - Cramp and spasm Vitamin B3 (Niacin) Today D64.9 - Anemia, unspecified, R19.7 - Diarrhea, unspecified, R20.2 - Paresthesia of skin, R25.2 - Cramp and spasm Vitamin B5 (Pantothenic Acid) Today D64.9 - Anemia, unspecified, R19.7 - Diarrhea, unspecified, R20.2 - Paresthesia of skin, R25.2 - Cramp and spasm Vitamin B6 Today D64.9 - Anemia, unspecified, R19.7 - Diarrhea, unspecified, R20.2 - Paresthesia of skin, R25.2 - Cramp and spasm Vitamin C Today D64.9 - Anemia, unspecified, R19.7 - Diarrhea, unspecified, R20.2 - Paresthesia of skin, R25.2 - Cramp and spasm Vitamin D 25-OH (D2 and D3) Today D64.9 - Anemia, unspecified, R19.7 - Diarrhea, unspecified, R20.2 - Paresthesia of skin, R25.2 - Cramp and spasm Zinc Today D64.9 - Anemia, unspecified, R19.7 - Diarrhea, unspecified, R20.2 - Paresthesia of skin, R25.2 - Cramp and spasm Comprehensive Met. Panel Today D64.9 - Anemia, unspecified, R19.7 - Diarrhea, unspecified, R20.2 - Paresthesia of skin, R25.2 - Cramp and spasm Vitamin B12 and Folate Today D64.9 - Anemia, unspecified, R19.7 - Diarrhea, unspecified, R20.2 - Paresthesia of skin, R25.2 - Cramp and spasm Homocysteine Today D64.9 - Anemia, unspecified, R19.7 - Diarrhea, unspecified, R20.2 - Paresthesia of skin, R25.2 - Cramp and spasm TSH reflex Free T4 Today D64.9 - Anemia, unspecified, R19.7 - Diarrhea, unsp ecified, R20.2 - Paresthesia of skin, R25.2 - Cramp and spasm Methylmalonic Acid Today D64.9 - Anemia, unspecified, R19.7 - Diarrhea, unspecified, R20.2 - Paresthesia of skin, R25.2 - Cramp and spasm CRP High Sensitivity Today D64.9 - Anemia, unspecified, R19.7 - Diarrhea, unspecified, R20.2 - Paresthesia of skin, R25.2 - Cramp and spasm Erythrocyte Sedimentation Rate Today D64.9 - Anemia, unspecified, R19.7 - Diarrhea, unspecified, R20.2 - Paresthesia of skin, R25.2 - Cramp and spasm Hemoglobin A1c Today D64.9 - Anemia, unspecified, R19.7 - Diarrhea, unspecified, R20.2 - Paresthesia of skin, R25.2 - Cramp and spasm Vitamin B2 (Riboflavin) Today D64.9 - Anemia, unspecified, R19.7 - Diarrhea, unspecified, R20.2 - Paresthesia of skin, R25.2 - Cramp and spasm Vitamin E Today D64.9 - Anemia, unspecified, R19.7 - Diarrhea, unspecified, R20.2 - Paresthesia of skin, R25.2 - Cramp and spasm Vitamin K1 Today D64.9 - Anemia, unspecified, R19.7 - Diarrhea, unspecified, R20.2 - Paresthesia of skin, R25.2 - Cramp and spasm Copper, serum Today D64.9 - Anemia, unspecified, R19.7 - Diarrhea, unspecified, R20.2 - Paresthesia of skin, R25.2 - Cramp and spasm Medications: New gabapentin 100 - 300 mg (1 - 3 x 100 mg) PO BEDTIME 30 days 90 caps 3RF Coding Level of Care Code Est Pt Level 4 (80794) Diagnoses History of ischemic left MCA stroke Z86.73 Paresthesia of both lower extremities R20.2 Leg cramps R25.2 Anemia D64.9 Paroxysmal atrial fibrillation I48.0 Venous insufficiency (chronic) (peripheral) I87.2
[2024-01-21 14:41] VITALS: PULSE 77; O2SAT 100
== END 2024-01-21 15:31 | disposition home or self-care (01) ==
PROVIDERS: Visit Provider Nurse Practitioner Family
DX: Z86.73 Personal history of transient ischemic attack (TIA), and cerebral infarction without residual deficits (principal); R20.2 Paresthesia of skin; R25.2 Cramp and spasm; D64.9 Anemia, unspecified; I48.0 Paroxysmal atrial fibrillation; I87.2 Venous insufficiency (chronic) (peripheral)
CPT/HCPCS: 99214

== ENCOUNTER 2024-01-21 14:29 | Outpatient (REF) | payer MEDICARE, SELFPAY ==
[2024-01-21 16:37] LABS: MANUAL DIFF FLAG NO
[2024-01-21 16:51] LABS: Basophils Absolute Auto 0.1 X10*3/uL (0.0-0.2); Basophils Percent Auto 0.6 % (0-2); Eosinophils Absolute Auto 0.2 X10*3/uL (0.0-0.4); Eosinophils Percent Auto 2.5 % (0-4); Hematocrit 36.9 % (37.0-47.0); Hemoglobin 12.3 g/dl (12.0-16.0); Imm Gran Abs Auto 0.03 X10*3/uL (0.00-0.03); Imm Gran Pct Auto 0.4 % (0.0-0.4); Lymphocytes Absolute Auto 2.1 X10*3/uL (1.2-4.9); Lymphocytes Percent Auto 24.4 % (20-40); Mean Corpuscular HGB Conc 33.3 g/dl (31.0-35.0); Mean Corpuscular Hemoglobin 31.4 pg (27.0-33.0); Mean Corpuscular Volume 94.1 fL (80.0-98.0); Mean Platelet Volume 10.4 fL (9.4-12.3); Monocytes Absolute Auto 0.5 X10*3/uL (0.1-1.2); Monocytes Percent Auto 6.1 % (2-11); Neutrophils Absolute Auto 5.6 x10*3/uL (2.0-8.3); Platelet Count 349 X10*3/uL (160-400); Red Blood Count 3.92 X10*6/uL (4.20-5.50); Red Cell Distribution Width 13.3 % (11.0-16.0); White Blood Count 8.5 X10*3/uL (4.8-10.8)
[2024-01-21 17:13] LABS: Alanine Aminotransferase 23 U/L (0-31); Albumin Level 4.2 g/dL (3.5-5.0); Alkaline Phosphatase 101 U/L (39-117); Anion Gap 14 (12-20); Aspartate Amino Transferase 22 U/L (5-31); Bilirubin Total 0.5 mg/dL (0.0-1.0); Blood Urea Nitrogen 15 mg/dL (9-16); Carbon Dioxide 27 mmol/L (22-29); Chloride 104 mmol/L (96-108); Estimated Glomerular Filt Rate > 60; Glucose Random 109 mg/dL (60-115); Iron 56 mcg/dL (30-160); Percent Iron Saturation 20 % (15-50); Potassium 3.7 mmol/L (3.3-5.1); Sodium 141 mmol/L (135-145); Total Iron Binding Capacity 281 mcg/dL (228-428); Total Protein 7.6 g/dL (6.5-8.0); Unsaturated Iron Binding 225 ug/dL
[2024-01-21 17:16] LABS: Estimated Average Glucose 108 mg/dL; Hemoglobin A1c % 5.4 % (<6.0)
[2024-01-21 17:29] LABS: Ferritin 57 ng/mL (10-250); TSH reflex Free T4 1.89 uIU/mL (0.32-4.0)
[2024-01-21 17:34] LABS: Erythrocyte Sedimentation Rate 20 MM/HR (0-20)
[2024-01-21 18:05] LABS: Folate > 20.0 ng/mL (> or = 4.0); Vitamin B12 962 pg/mL (200-900)
[2024-01-24 20:18] LABS: Homocysteine 12.9 umol/L (<10.4)
[2024-01-25 11:58] LABS: Vitamin D 25-OH, D2 <4 ng/mL; Vitamin D 25-OH, D3 33 ng/mL; Vitamin D 25-OH, Total 33 ng/mL (30-100)
[2024-01-25 13:58] LABS: Methylmalonic Acid 252 nmol/L (87-318)
[2024-01-25 15:44] LABS: Vitamin B6 16.3 ng/mL (2.1-21.7)
[2024-01-25 16:03] LABS: Zinc 102 mcg/dL (60-130)
[2024-01-25 16:14] LABS: Nicotinamide <20 ng/mL; Vit B3 - Nicotinic Acid <20 ng/mL
[2024-01-25 18:49] LABS: Vitamin B5 (Pantothenic Acid) 368 ng/mL (<275)
[2024-01-26 03:44] LABS: Copper, serum 113 mcg/dL (70-175)
[2024-01-26 10:19] LABS: Vitamin K1 1850 pg/mL (130-1500)
[2024-01-26 12:17] LABS: Vitamin B1 14 nmol/L (8-30)
[2024-01-26 18:13] LABS: CRP High Sensitivity 4.1 mg/L
[2024-01-27 04:44] LABS: Alpha-Tocopherol 15.3 mg/L (5.7-19.9); Beta-Gamma Tocopherol <1.0 mg/L (<=4.3); Vitamin A 63 mcg/dL (38-98)
[2024-01-27 23:38] LABS: Vitamin B2 (Riboflavin) 35.7 nmol/L (6.2-39.0)
== END 2024-01-21 14:30 | disposition home or self-care (01) ==
LOC: HO.LAB 14:29
PROVIDERS: Visit Provider Nurse Practitioner Family
DX: R20.2 Paresthesia of skin (principal); D64.9 Anemia, unspecified; R25.2 Cramp and spasm; R19.7 Diarrhea, unspecified; I48.0 Paroxysmal atrial fibrillation; I87.2 Venous insufficiency (chronic) (peripheral); Z86.73 Personal history of transient ischemic attack (TIA), and cerebral infarction without residual deficits
CPT/HCPCS: 36415; 80053; 82306; 82525; 82550; 82607; 82728; 82746; 83036; 83090; 83540; 83921; 84207; 84252; 84425; 84443; 84446; 84590; 84591; 84597; 84630; 85025; 85652; 86141; 99212

== ENCOUNTER 2024-07-13 14:19 | Outpatient (AMB) | payer MEDICARE, SELFPAY ==
--- NOTE | 2024-07-13 14:33 | A.OFFVIS_ITS ---
Vital Signs 07/13/24 14:37 Height 5 ft 3 in Weight 151 lb 8 oz BMI 26.8 Intake Visit Reasons: Follow up Intake Note: Patient presents for follow up. Allergies codeine Allergy (Unknown, Verified 07/13/24 14:38) rash Penicillins Adverse Reaction (Verified 07/13/24 14:38) Hives terbinafine [From Lamisil] Adverse Reaction (Verified 07/13/24 14:38) Hives Medication List - Last Reconciled 07/13/24 by PAIGE Glass amlodipine 2.5 mg (1/2 x 5 mg) PO DAILY apixaban (Eliquis) 5 mg PO BID atorvastatin 80 mg PO BEDTIME cranberry fruit (cranberry) 450 mg PO BID gabapentin 100 - 300 mg (1 - 3 x 100 mg) PO BEDTIME 30 days ketoconazole 2% 1 appl topical BID PRN loperamide 4 mg PO BID losartan 50 mg PO DAILY melatonin 6 mg PO BEDTIME metoprolol tartrate 25 mg PO BID pjipyyctyapk-mcspkwvw-vfutlv 1 tab PO DAILY nystatin 1 appl topical TID PRN pantoprazole 40 mg PO DAILY@0630 potassium chloride ER 40 mEq (2 x 20 mEq) PO DAILY sulfamethoxazole-trimethoprim 800-160 mg 1 tab PO Q12H trazodone 50 mg PO BEDTIME walker (Ultra-Light Rollator mis) As directed zinc gluconate 50 mg PO DAILY HPI Comments Details: 83-yr-old female presents for f/u visit. Pt reports she is slowly doing better. She states her balance is better. She is hoping to resume PT when she is eligible again in Jul. States her memory is ok- forgetful to time. She spends her day watching [employer] videos on [employer]. No longer inc of stool. She still has urinary incontinence. She continues to have LLE coldness and prickly sensation. She has some rLE symptoms, but less then left. She did have a vascular consult and had a vascular procedure- which did not help, per pt. She is wrapping her feet at night in blankets which helps. Denies leg cramps. Denies LLE weakness. She started Gabapentin 100mg qhs, son then increased to 200mg- helps some. It does make her sleepy. [facility] Medical History Pyuria Episode of syncope Urinary tract infection Syncope, vasovagal Atrial fibrillation Right hemiparesis HLD (hyperlipidemia) Atrial fibrillation History of malignant melanoma History of basal cell carcinoma History of dysplastic nevus Degenerative joint disease (DJD) of hip Low back pain radiating to left lower extremity History of squamous cell carcinoma Venous insufficiency (chronic) (peripheral) Diarrhea Hypertension Surgical History H/O breast biopsy Hx of colonoscopy Hx of cholecystectomy Hx of appendectomy Family History Father Throat cancer Mother Kidney failure Social History Household Members: Spouse Housing: House Alcohol intake: current Alcohol intake frequency: does not drink Alcohol type: wine Patient Tobacco Use Status: Never used Tobacco Advance Directives Date on File: 11/02/23 service: No Physical Exam Vital Signs: BMI result Body Mass Index 26.8 Const General: cooperative and no acute distress Resp Effort & Inspection: normal respiratory effort and able to speak in complete sentences Neuro Other: Alert & Oriented w/ STM lapses. Able to state the correct date, location, who the current president is. Right lower facial, RUE weakness. Mild dysarthria. Stands ok, steady gait w/ walker. Psych Appearance: grossly normal Mental Status: mental status grossly normal Affect: normal affect Attitude: cooperative Assessment & Plan Assessment & Plan (1) History of ischemic left MCA stroke: Comment: 08/10/23 Code(s): Z86.73 - Personal history of transient ischemic attack (TIA), and cerebral infarction without residual deficits Category: Medical (2) Paresthesia of both lower extremities: Code(s): R20.2 - Paresthesia of skin Category: Medical Plan For left MCA CVA: Continue optimized CV risk reduction strategies- ASA, Eliquis, statin, amlodipine, losartan. Follow-up with cardiology as scheduled. Concur with resuming outpatient PT Future considerations: sleep study. For bilateral lower extremity, left more so than right, pain, paresthesias and coolness: Reviewed rceent labs- B12, Folate, TSH,- NL Continue Gabapentin, may increase up to 200mg qhs. BLE EMG/NCS. Follow-up upon review of above and in 6 months or sooner in clinic. Orders: Orders NE nerve conduction velocity Today R20.2 - Paresthesia of skin NE electromyogram (EMG) Today R20.2 - Paresthesia of skin Medications: Changed From gabapentin 100 - 300 mg (1 - 3 x 100 mg) PO BEDTIME 30 days 90 caps 3RF To gabapentin 300 mg (3 x 100 mg) PO BEDTIME 30 days 90 caps 6RF Coding Level of Care Code Est Pt Level 4 (92403) Diagnoses History of ischemic left MCA stroke Z86.73 Paresthesia of both lower extremities R20.2
[2024-07-13 14:37] VITALS: BMI 26.8
== END 2024-07-13 15:41 | disposition home or self-care (01) ==
PROVIDERS: Visit Provider Nurse Practitioner Family
DX: Z86.73 Personal history of transient ischemic attack (TIA), and cerebral infarction without residual deficits (principal); R20.2 Paresthesia of skin
CPT/HCPCS: 99214

== ENCOUNTER → 2024-07-13 14:19 | Outpatient (BNVA) | payer MEDICARE, SELFPAY | PROVIDERS: Visit Provider Nurse Practitioner Family | DX: R20.2 Paresthesia of skin (principal); Z86.73 Personal history of transient ischemic attack (TIA), and cerebral infarction without residual deficits | CPT/HCPCS: 99212 ==

== ENCOUNTER 2024-08-30 12:34 | Outpatient (REF) | payer MEDICARE, SELFPAY ==
--- NOTE | 2024-08-30 12:38 | EMG_ITS ---
Chief complaint: 84-year-old. History of left MCA stroke, residual right hemiparesis, complaining of left foot numbness. Denies back pain. Reason for referral: Evaluate for neuropathy Referred by: Rossy Alvarez NP Procedure done: Bilateral lower extremity NCS/EMG Precautions and/or limitations: Advanced age On Eliquis Feet were very cold - warm packs used. Nerve Conduction Studies Anti Sensory Summary Table ?Stim Site NR Onset (ms) Norm Onset (ms) Peak (ms) Norm Peak (ms) O-P Amp (?V) Norm O-P Amp Site1 Site2 Delta-0 (ms) Dist (cm) Ronan (m/s) Norm Ronan (m/s) Left Sural Anti Sensory (Lat Mall) Calf NR <4.0 >5.0 Calf Lat Mall 14.0 Right Sural Anti Sensory (Lat Mall) Calf NR <4.0 >5.0 Calf Lat Mall 14.0 Motor Summary Table ?Stim Site NR Onset (ms) Norm Onset (ms) O-P Amp (mV) Norm O-P Amp iAmp (mV) Amp (1st) (%) Site1 Site2 Delta-0 (ms) Dist (cm) Ronan (m/s) Norm Ronan (m/s) Left Peroneal Motor (Ext Dig Brev) Ankle ? 5.6 <4.0 7.4 >2.5 9.4 100.0 Ankle Ext Dig Brev 5.6 0.0 B Fib ? 13.3 6.2 7.1 83.8 B Fib Ankle 7.7 31.0 40 >40 Poplt ? 13.7 7.9 9.7 106.8 Poplt B Fib 0.4 4.0 100 >40 Right Peroneal Motor (Ext Dig Brev) Ankle ? 5.3 <4.0 3.8 >2.5 4.4 100.0 Ankle Ext Dig Brev 5.3 0.0 B Fib ? 11.6 3.2 4.0 84.2 B Fib Ankle 6.3 28.0 44 >40 Poplt ? 13.1 3.5 4.2 92.1 Poplt B Fib 1.5 5.0 33 >40 Left Tibial Motor (Abd Hunter Brev) Ankle ? 5.0 <5 4.1 >2.5 5.9 100.0 Ankle Abd Hunter Brev 5.0 0.0 Knee ? 14.9 2.6 3.9 63.4 Knee Ankle 9.9 35.0 35 >40 Right Tibial Motor (Abd Hunter Brev) Ankle ? 5.9 <5 2.9 >2.5 3.9 100.0 Ankle Abd Hunter Brev 5.9 0.0 Knee ? 15.2 1.2 1.3 41.4 Knee Ankle 9.3 34.0 37 >40 Right Tibial Motor Run #2 (Abd Hunter Brev) Ankle ? 7.6 <5 3.3 >2.5 4.3 100.0 Ankle Abd Hunter Brev 7.6 0.0 Knee ? 16.2 1.0 1.2 30.3 Knee Ankle 8.6 34.0 40 >40 EMG ?Side Muscle Nerve Root Ins Act Fibs Psw Amp Dur Poly Recrt Int Pat Comment Right AbdHallucis MedPlantar S1-2 Nml Nml Nml Nml Nml 0 Nml Complete Left AbdHallucis MedPlantar S1-2 Nml Nml Nml Nml Nml 0 Nml Complete Left AntTibialis Dp Br Peron L4-5 Nml Nml Nml Nml Nml 0 Nml Complete Left PostTibialis Tibial L5, S1 Nml Nml Nml Nml Nml 0 Nml Complete Left MedGastroc Tibial S1-2 Nml Nml Nml Nml Nml 0 Nml Complete Left VastusMed Femoral L2-4 Nml Nml Nml Nml Nml 0 Nml Complete FINDINGS: Left peroneal nerve showed prolonged distal latency, normal amplitude and normal conduction velocity. Right peroneal nerve showed prolonged distal latency, normal amplitude and slow conduction velocity. Left tibial nerve showed normal distal latency, normal amplitude and slow conduction velocity. Right tibial nerve showed prolonged distal latency, normal amplitude and slow conduction velocity. Attempted to test again after further warming the ankle/foot with warm packs, tibial motor nerve showed prolonged distal latency but normal conduction velocity. Bilateral sural nerves absent response. Concentric needle EMG was performed in selected muscles of the bilateral lower extremity. Study did not reveal signs of electric abnormalities as shown in the table above. IMPRESSION: 1. 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 2. No electrodiagnostic findings for lumbar plexopathy or lumbar radiculopathy. Thank you for your kind referral. Monica Cruz MD, NIEVES Board Certified, [place] Board of Physical Medicine and Rehabilitation (ABPMR) Board Certified, [place] Board of Electrodiagnostic Medicine (ABEM) CODIN [id number] x 1 [phone] x 1 TEJAS
== END 2024-08-30 12:35 | disposition home or self-care (01) ==
LOC: HO.NEURO 12:34
PROVIDERS: PCP Internal Medicine; Visit Provider Nurse Practitioner Family
DX: R20.2 Paresthesia of skin (principal)
CPT/HCPCS: 95885; 95886; 95909

== ENCOUNTER → 2024-08-30 12:38 | Outpatient (BNV) | payer MEDICARE, SELFPAY | PROVIDERS: PCP Internal Medicine; Visit Provider Physical Medicine & Rehabilitation | DX: G60.9 Hereditary and idiopathic neuropathy, unspecified (principal) | CPT/HCPCS: 95885; 95886; 95909 ==

== ENCOUNTER 2024-11-02 04:25 | Inpatient (IN) | payer MEDICARE, SELFPAY ==
[2024-11-02] VITALS (14 sets, daily range): BP systolic 102–149; BP diastolic 48–67; PULSE 64–93; RESP 15–22; TEMP 36.5–38.8; O2SAT 91–98; BMI 28.2
--- NOTE | 2024-11-02 | ECG_ITS ---
Test Reason : weakness Blood Pressure : */* mmHG Vent. Rate : 67 BPM Atrial Rate : * BPM P-R Int : * ms QRS Dur : 90 ms QT Int : 434 ms P-R-T Axes : * 54 84 degrees QTcB Int : 458 ms Atrial fibrillation Cannot rule out Anterior infarct , age undetermined Abnormal ECG When compared with ECG of 08-Dec-2023 12:49, No significant change was found Referred By: Generic ED Physician Electronically Signed By: Cortez Del Angel
--- NOTE | ~2024-11-02 | CT_ITS ---
EXAMINATION: CT CHEST WITHOUT CONTRAST CLINICAL INFORMATION: Cough. Shortness of breath. COMPARISON: None available. TECHNIQUE: Multidetector volumetric CT imaging of the chest was done. Axial MIP volume rendering provided. Sagittal and coronal reformatted images were obtained. This CT examination was performed using dose optimization techniques as appropriate, variously including the following: *Automated exposure control *Adjustment of mA and/or kV according to patient size (this includes techniques or standardized protocols for targeted exams where dose is matched to indication/reason for exam; i.e. extremities or head) *Use of iterative reconstruction technique. DLP: 359.54 mGy centimeter. FINDINGS: Patient's breathing motion artifact. Peribronchial septal thickening, linear attenuation and mild patchy groundglass with scattered subcentimeter, 5 mm noncalcified pulmonary nodules in the right middle lobe, lingula and lower lung lobes. Bilateral apical lung scarring. No bronchiectasis. No honeycombing. Bilateral pleural effusions, small volume. Prominent, less than 15 mm, mediastinal lymph nodes. No pericardial effusion. Heart chambers are prominent, predominantly the left side. Calcified plaques in the thoracic aorta wall and the origin left subclavian artery. No aneurysm in the thoracic aorta. No gross calcifications in the coronary arteries. 11 mm low-density nodule in the inferior right thyroid lobe. No axillary lymphadenopathy. Calcified plaques in the proximal abdominal aorta and splenic artery. Hiatal hernia, small to moderate size. Multilevel thoracic spondylosis without acute fracture or listhesis. Focal calcification in the right breast. CT/CT chest wo IV con IMPRESSION: Consider acute inflammatory versus infectious processes involving lingula, right middle lobe and lower lung lobes with the associated subcentimeter pulmonary nodules. Mild interstitial lung edema should be considered. Fleischner guidelines were followed. Electronically signed by: Daryl Metzger MD 11/02/2024 08:52 AM EST
--- NOTE | ~2024-11-02 | CT_ITS ---
EXAMINATION: CT HEAD WITHOUT CONTRAST CLINICAL INFORMATION: fall on blood thinners COMPARISON: CT brain dated August 10, 2023. Correlated to MRI brain dated November 01, 2023. TECHNIQUE: Contiguous axial imaging was performed from the skull base to vertex without intravenous administration of contrast. This CT examination was performed using dose optimization techniques as appropriate, variously including the following: *Automated exposure control *Adjustment of mA and/or kV according to patient size (this includes techniques or standardized protocols for targeted exams where dose is matched to indication/reason for exam; i.e. extremities or head) *Use of iterative reconstruction technique DLP: 664.83 mGy-cm FINDINGS: Bony calvarium is intact. Skull base is intact. No acute intracranial hemorrhage, mass effect, midline shift, hydrocephalus or herniation. Posterior cranial fossa contents demonstrated no acute intracranial hemorrhage or mass effect. There is a large volume macrocystic encephalomalacia involving the left frontotemporal lobes resulting in ex vacuo dilatation of the left lateral ventricle and wallerian degeneration into the left midbrain/richar. Bilateral multifocal patchy and confluent deep periventricular white matter hypodensities. Multifocal old lacunar infarcts, basal ganglia and stout radiata white matter. Volume loss of the left hippocampus. Calcified plaques in the cavernous supraclinoid segments both ICA. Sellar/suprasellar region demonstrated no gross masses. Craniocervical junction is intact. Small retention cysts versus polyp in the right sphenoid ethmoid recesses. No air-fluid levels in the visualized paranasal sinuses. Tympanic cavities and mastoid cells are aerated. There is no stenosis of stenosis in the right occipital bone. Hyperostosis frontalis. CT/CT head/brain wo IV con IMPRESSION: No acute fracture, bony calvarium. No acute intracranial hemorrhage. Encephalomalacia left frontal temporal lobes sequela of prior infarct, left MCA territory. Small vessel occlusive disease. Electronically signed by: Daryl Metzger MD 11/02/2024 08:45 AM EST
--- NOTE | ~2024-11-02 | XR_ITS ---
CLINICAL HISTORY: Shortness of breath 1 view chest x-ray Comparison: CR/SR - XR CHEST 2V - 12/08/23 12:07 EST Findings: Airspace disease in the left lower lobe, possibly atelectasis without significant effusion. Heart size is stable. No acute fracture. IMPRESSION: 1. Retrocardiac opacity possibly representing atelectasis versus infection. This document has been electronically signed by: Tammie Chandler MD on 11/02/2024 05:19:39
--- OUTSIDE RECORDS SUMMARY | 2024-11-02 04:27 | XMS_ITS | Continuity of Care Document ---
Author Organization [facility] Address [address] [place] [address] Phone Care Team Providers Care Gear Machine Operator Name Role Phone Loyd TO, Niecy Unavailable [...] E&M Established 15 Mins- CT & [place] [facility], [address] [place] [address] [address], [id number], [place] tel:[phone] [facility] Varicose veins of left lower extremity with other complication sRestless legs syndromeAthe rosclerotic heart disease of [place] coronary artery without angina pectorisCoro nary atherosclero sis due to lipid rich plaqueCerebr al infarction, unspecified 4 Loyd Pemberton. [address] [place] [address], [place], [place], [id number], [place]. tel:[phone] [facility], [address] [place] [address] Dr Yin 1000[address], [id number], [place] tel:[phone] [facility] Encounter for follow-up examination after completed treatment for conditions other than malignant neVaricose veins of left lower extremity with pain 4 Milton BECKER RVT, NOAH Hewitt. [address] [place] [address], [facility] [place], [id number], [place]. tel:[phone] Referring Provider: Kash Rose MD, RVT, NOAH, [address] [place] [address], [address]. tel:[phone] [facility], [address] [place] [address] Dr Yin [address], [id number], [place] tel:[phone] [facility] Encounter for follow-up examination after completed treatment for conditions other than malignant neVaricose veins of left lower extremity with pain 4 Milton BECKER RVT, NOAH Hewitt. [address] [place], [place] [address]jim gonzalez [place], [id number], [place]. tel:[phone] Referring Provider: Kash Rose MD, RVT, NOAH, [address] [place] [address], [id number]. 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 [address] [place] [address], [facility] [place], [id number], [place]. tel:[phone] Referring Provider: Kash Rose MD, JUANA, NOAH, [address] [place] [address], [place], [address]. tel:[phone] Offic/outpt E&m Estab 5 Min Trial- Telemedicine CT & [place] [facility], [address] [place] [address] [address], [place], [id number], [place] tel:[phone] [facility] Venous insufficienc y (chronic) (peripheral) Restless legs syndromeAthe rosclerotic heart disease of [place] coronary artery without angina pectorisCoro nary atherosclero sis due to lipid rich plaqueCerebr al infarction, unspecified 4 Hyun Ortega. [address] [place] [address], [facility] [place], [id number], [place]. tel:[phone] Referring Provider: Jonna Ackerman, [address] [place] [address], [address]. tel:[phone] Office/Oupt E&M New Pt 30 Mins- CT & [place] [facility], [address] [place] [address] [address], [place], [id number], [place] tel:[phone] [facility] [place] [facility] [place] Pruritus, unspecifiedV aricose veins of left lower extremity with other complication Jerald in right lower legPain in left lower legRestless legs syndromeEsse ntial (primary) hypertension Atherosclero tic heart disease of [place] coronary artery without angina pectorisCoro nary atherosclero sis due to lipid rich plaqueCerebr al infarction, unspecified 4 Milton BECKER, JUANA, NOAH Hewitt. [address] [address], [facility] [place], [id number], [place]. tel:[phone] Referring Provider: Jonna Ackerman, [address] [place] [address], [id number]. tel:[phone] [facility], [address], [place], [id number], [place] tel:[phone] [facility] - [place] [facility] [place] Chronic venous hypertension (idiopathic) with other complication s of bilateral lower extremity Milton BECKER, RVT, RPVI Kash. [address], [address], [place], [place], [id number], [place]. tel:[phone] Referring Provider: Jonna Soto MD [facility], [address] [place] [address], [address]. tel:[phone] Family History Family Member Type Diagnosis Age At Onset No Information Payers Payer name Insurance type Covered green party ID Authoriza tion(s) Medicare NEYDA BARNARD [id number] BCBS NEYDA [id number] Medical Assistance NEYDA [id number] Social History Type Description Quantity Date Captured [...]
[2024-11-02 05:00] LABS: Venous Blood Gas Refer to POC result
[2024-11-02 05:01] LABS: Basophils Percent Auto 0.3 % (0-2); Eosinophils Absolute Auto 0.3 X10*3/uL (0.0-0.4); Eosinophils Percent Auto 1.6 % (0-4); Hematocrit 36.7 % (37.0-47.0); Hemoglobin 12.4 g/dl (12.0-16.0); Imm Gran Abs Auto 0.05 X10*3/uL (0.00-0.03); Imm Gran Pct Auto 0.3 % (0.0-0.4); Lymphocytes Absolute Auto 1.1 X10*3/uL (1.2-4.9); Lymphocytes Percent Auto 7.1 % (20-40); Mean Corpuscular HGB Conc 33.8 g/dl (31.0-35.0); Mean Corpuscular Hemoglobin 30.8 pg (27.0-33.0); Mean Corpuscular Volume 91.1 fL (80.0-98.0); Mean Platelet Volume 10.1 fL (9.4-12.3); Monocytes Absolute Auto 0.9 X10*3/uL (0.1-1.2); Monocytes Percent Auto 6.1 % (2-11); Neutrophils Percent Auto 84.6 % (45-73); Platelet Count 234 X10*3/uL (160-400); Red Blood Count 4.03 X10*6/uL (4.20-5.50); Red Cell Distribution Width 13.2 % (11.0-16.0); White Blood Count 15.4 X10*3/uL (4.8-10.8)
[2024-11-02 05:02] LABS: MANUAL DIFF FLAG NO
--- NOTE | 2024-11-02 05:03 | PC.NURSE ---
per pt family member, patient finished course of macrobid 11/01 for suspected UTI s/p urine dipstick
[2024-11-02 05:05] LABS: VBG Base Excess 0.3 mmol/L; VBG HCO3 24 mmol/L (22-26); VBG pCO2 37 mmHg; VBG pH 7.42 (7.32-7.43); VBG pO2 51 mmHg
[2024-11-02 05:14] LABS: INTERNATIONAL NORM RATIO 1.6 (0.9-1.1); Prothrombin Time 18.6 SEC (10.9-12.4)
[2024-11-02 05:17] LABS: Alanine Aminotransferase 15 U/L (0-31); Alkaline Phosphatase 89 U/L (39-117); Anion Gap 15 (12-20); Aspartate Amino Transferase 22 U/L (5-31); Bilirubin Total 0.7 mg/dL (0.0-1.0); Blood Urea Nitrogen 20 mg/dL (9-16); Calcium 8.8 mg/dL (8.4-10.2); Carbon Dioxide 21 mmol/L (22-29); Chloride 107 mmol/L (96-108); Creatinine Clr Calc Pharmacy 46.8; Estimated Glomerular Filt Rate > 60; Glucose Random 146 mg/dL (60-115); Potassium 3.4 mmol/L (3.3-5.1); Sodium 140 mmol/L (135-145); Total Protein 6.7 g/dL (6.5-8.0)
[2024-11-02 05:20] LABS: Troponin-I High Sensitivity 6.9 ng/L (<3.5-17.0)
--- OUTSIDE RECORDS SUMMARY | 2024-11-02 06:03 | XMS_ITS | Continuity of Care Document ---
Author Organization [facility] Address [address] [place] [address] Phone Care Team Providers Care Medical Affairs Specialist Name Role Phone Loyd TO, Niecy Unavailable [...] E&M Established 15 Mins- CT & [place] [facility], [address] [place] [address] [address]Nan[place], [id number], [place] tel:[phone] [facility] Varicose veins of left lower extremity with other complication sRestless legs syndromeAthe rosclerotic heart disease of [place] coronary artery without angina pectorisCoro nary atherosclero sis due to lipid rich plaqueCerebr al infarction, unspecified 4 Loyd Pemberton. [address] [place] [address], [place], [place], [id number], [place]. tel:[phone] [facility], [address] [place] [address] Dr Yin 1000[address] 1000[place], [id number], [place] tel:[phone] [facility] Encounter for follow-up examination after completed treatment for conditions other than malignant neVaricose veins of left lower extremity with pain 4 Milton BECKER RVT, NOAH Hewitt. [address] [place] [address], [facility] [place], [id number], [place]. tel:[phone] Referring Provider: Kash Rose MD, RVT, NOAH, [address] [place] [address], [address]. tel:[phone] [facility], [address] [place] [address] Dr Yin 1000[address] 1000[place], [id number], [place] tel:[phone] [facility] Encounter for follow-up examination after completed treatment for conditions other than malignant neVaricose veins of left lower extremity with pain 4 Milton BECKER RVT, NOAH Hewitt. [address] [place], [place] [address]jim gonzalez [place], [id number], [place]. tel:[phone] Referring Provider: Kash Rose MD, RVT, NOAH, [address] [place] [address], [address]. 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 [address] [place] [address], [facility] [place], [id number], [place]. tel:[phone] Referring Provider: Kash Rose MD, JUANA, NOAH, [address] [place] [address], [place], [address]. tel:[phone] Offic/outpt E&m Estab 5 Min Trial- Telemedicine CT & [place] [facility], [address] [place] [address] [address], [place], [id number], [place] tel:[phone] CVR - [facility] Venous insufficienc y (chronic) (peripheral) Restless legs syndromeAthe rosclerotic heart disease of [place] coronary artery without angina pectorisCoro nary atherosclero sis due to lipid rich plaqueCerebr al infarction, unspecified 4 Hyun Ortega. [address] [place] [address], [facility] [place], [id number], [place]. tel:[phone] Referring Provider: Jonna Ackerman, [address] [place] [address], [address]. tel:[phone] Office/Oupt E&M New Pt 30 Mins- CT & [place] [facility], [address] [place] [address] [address], [place], [id number], [place] tel:[phone] [facility] [place] [facility] [place] Pruritus, unspecifiedV aricose veins of left lower extremity with other complication Jerald in right lower legPain in left lower legRestless legs syndromeEsse ntial (primary) hypertension Atherosclero tic heart disease of [place] coronary artery without angina pectorisCoro nary atherosclero sis due to lipid rich plaqueCerebr al infarction, unspecified 4 Milton BECKER, JUANA, NOAH Hewitt. [address] [address], [facility] [place], [id number], [place]. tel:[phone] Referring Provider: Jonna Ackerman, [address] [place] [address], [address]. tel:[phone] [facility], [address] [facility] [address], [place], [id number], [place] tel:[phone] [facility] - [place] [facility] [place] Chronic venous hypertension (idiopathic) with other complication s of bilateral lower extremity Milton BECKER, RVT, RPVI Kash. [address] [facility], [address], [place], [place], [id number], [place]. tel:[phone] Referring Provider: Jonna Soto MD [facility], [address] [place] [address], [address]. tel:[phone] Family History Family Member Type Diagnosis Age At Onset No Information Payers Payer name Insurance type Covered alliance party ID Authoriza tion(s) Medicare NEYDA BARNARD [id number] BCBS NEYDA [id number] Medical Assistance NEYDA [id number] Social History Type Description Quantity Date Captured [...]
--- NOTE | 2024-11-02 07:02 | ED.GENADULT ---
HPI - General Adult General Chief complaint: Weakness Stated complaint: syncope, sepsis? Time Seen by Provider: 11/02/24 06:56 Source: patient and family Mode of arrival: ambulatory History of Present Illness ED Provider: Raven KNIGHT narrative: 84-year-old female with history of stroke with mild right-sided deficits, stroke was approximately 18 months ago and she is currently on blood thinners and had an episode when she was going to the bathroom this morning of feeling very flushed, sweaty and passed out, unsure about head strike, denies any pain at this time, denies any abdominal discomfort or urinary symptoms but is noted to be currently on antibiotics for a urinary tract infection. She does report cough and congestion. Related Data Home Medications ?Medication ?Instructions ?Recorded ?Confirmed atorvastatin 80 mg tablet 80 mg PO BEDTIME 10/01/23 07/13/24 losartan 50 mg tablet 50 mg PO DAILY 10/01/23 07/13/24 dzkwducqcjdt-ewfovwer-kwagck tablet 1 tab PO DAILY 10/01/23 07/13/24 pantoprazole 40 mg tablet,delayed 40 mg PO DAILY@0630 10/01/23 07/13/24 release trazodone 50 mg tablet 50 mg PO BEDTIME 10/01/23 07/13/24 apixaban 5 mg tablet (Eliquis) 5 mg PO BID 10/10/23 07/13/24 melatonin 3 mg tablet 6 mg PO BEDTIME Sleep 10/10/23 07/13/24 metoprolol tartrate 50 mg tablet 25 mg PO BID 10/21/23 07/13/24 nystatin 100,000 unit/gram topical 1 appl topical TID PRN Rash 10/21/23 07/13/24 powder cranberry fruit 450 mg tablet 450 mg PO BID 12/08/23 07/13/24 (cranberry) ketoconazole 2 % topical cream 1 appl topical BID PRN Rash 12/08/23 07/13/24 zinc gluconate 50 mg tablet 50 mg PO DAILY 12/08/23 07/13/24 loperamide 2 mg capsule 4 mg PO BID 01/21/24 07/13/24 Previous Rx's ?Medication ?Instructions ?Recorded chris (Ultra-Light Rollator misc) #1 ea 08/22/21 potassium chloride 20 mEq 40 meq (2 x 20 mEq) PO DAILY #10 11/03/23 tablet,extended release tabs amlodipine 5 mg tablet 2.5 mg (1/2 x 5 mg) PO DAILY #30 12/11/23 tabs sulfamethoxazole 800 1 tab PO Q12H #17 tabs 12/11/23 mg-trimethoprim 160 mg tablet gabapentin 100 mg capsule 300 mg (3 x 100 mg) PO BEDTIME 30 07/13/24 days #90 caps Allergies Allergy/AdvReac Type Severity Reaction Status Date / Time codeine Allergy Unknown rash Verified 11/02/24 04:46 Penicillins AdvReac Hives Verified 11/02/24 04:46 terbinafine [From Lamisil] AdvReac Hives Verified 11/02/24 04:46 Review of Systems Review of Systems: Pertinent positives and negatives as stated in [facility] Past Medical History Source: nursing notes reviewed Medical History Pyuria Episode of syncope Urinary tract infection Syncope, vasovagal Atrial fibrillation Right hemiparesis HLD (hyperlipidemia) Atrial fibrillation History of malignant melanoma History of basal cell carcinoma History of dysplastic nevus Degenerative joint disease (DJD) of hip Low back pain radiating to left lower extremity History of squamous cell carcinoma Venous insufficiency (chronic) (peripheral) Diarrhea Hypertension Surgical History H/O breast biopsy Hx of colonoscopy Hx of cholecystectomy Hx of appendectomy Family History Family History Father Throat cancer Mother Kidney failure Social History Social History Household Members: Spouse Housing: House Alcohol intake: former Patient Tobacco Use Status: Never used Tobacco Smoked in Last 30 Days: No Use of substances other than those prescribed or required for medical reasons: No Advance Directives: Yes Advance Directives on File: Yes Advance Directives Date on File: 11/02/23 Do you have a plan to hurt others: No Plan service: No Physical Exam ED Vital Signs: Vital Signs - 24 hr 11/02/24 04:37 11/02/24 04:41 11/02/24 05:30 Temperature 97.7 F 97.7 F 97.7 F Pulse Rate 70 73 68 Pulse Rate [Monitor] Respiratory Rate 17 20 15 Blood Pressure 105/49 L 103/51 L Pulse Oximetry 91 L 98 93 Oxygen Delivery Method Room Air Room Air 11/02/24 05:32 11/02/24 06:17 Temperature 98.0 F Pulse Rate 64 Pulse Rate [Monitor] 67 Respiratory Rate 16 Blood Pressure 105/51 L Pulse Oximetry 93 Oxygen Delivery Method Room Air BMI result Body Mass Index 28.2 VITAL SIGNS: Reviewed. GENERAL: Well developed, well nourished, in no acute distress. HEAD: Normocephalic/atraumatic EYES: PERRLA, EOMI EARS: Ext canals without abnormality NOSE: Nares patent bilateral OROPHARYNX: no oral lesions noted, posterior pharynx clear NECK: Supple, no adenopathy LUNGS: Good inspiratory effort without tachypnea, decreased breath sounds left side, some crackles noted on right base SpO2<91> CARDIOVASCULAR: Regular rate and rhythm without noted murmurs, no JVD or lower extremity edema. ABDOMEN: Soft, non-tender, non-distended with bowel sounds. MUSCULOSKELETAL: No tenderness, deformities, or effusions noted on gross inspection. EXTREMITIES: No cyanosis, clubbing or edema. SKIN: Inspection of the skin reveals no rashes NEUROLOGIC: Alert and oriented x 4. Strength and sensation to light touch were grossly intact x 4 but left is stronger than the right, there is noted baseline dysarthria (confirmed with and daughter who are at bedside). Medications Administered Discontinued Medications Generic Name Dose Route Start Last Admin Trade Name Freq PRN Reason Stop Dose Admin Cefepime HCl 2 gm in 50 mls @ 100 mls/hr 11/02/24 06:59 11/02/24 08:23 Maxipime IV 11/02/24 07:28 Infused ONCE ONE Infusion Sodium Chloride 1,000 mls @ 999 mls/hr 11/02/24 07:15 11/02/24 07:37 Ns IV 11/02/24 08:15 999 mls/hr .Q1H1M MILI Administration Medical Decision Making Medical Decision Making MDM Narrative: 0702: 84-year-old female with history and clinical presentation, DD DX: Patient with syncopal episode and will rule out underlying infection, electrolyte derangement, cardiac arrhythmia. EKG: Atrial fibrillation, HR-67, QRS/QTC are within normal limits and there are no acute changes when compared to prior from 12/08/2023. 0705: I reviewed interpreted all investigations and there is evidence to suggest an underlying infectious leukocytosis, there is no anemia or thrombocytopenia. INR-1.6 consistent with reported use chronic anticoagulation. VBG does not demonstrate any evidence of respiratory acidosis or hypercapnia. There is no demonstrate SIERRA, electrolyte or liver enzyme derangements. Lactic acid is mildly elevated but does not meet criteria for sepsis fluid bolus. Chest x-ray on my interpretation demonstrates opacity on the left but crackles were also heard on the right, will pursue CT of the chest for better clarification. Patient will otherwise get lactic acid/blood cultures and received 2 g of cefepime as she is allergic to penicillins. Will also obtain CT of the head as she did have a syncopal episode with unknown head strike and is currently on chronic anticoagulation though there are no focal deficits noted at this time. 0819: I contacted hospitalist for admission. Differential Diagnosis Differential Diagnoses: The differential diagnosis associated with the presentation includes See above Admission/Observation Consideration of admission/observation: Escalation of care including admission/observation considered Patient workup, decision and criteria met for inpatient admission. Consult Healthcare Provider Management of the patient was discussed with: Hospitalist See above Lab Data MDM Lab Attestation statement: I reviewed the patient's lab results. See above 11/02/24 04:54 11/02/24 04:54 Labs: Lab Results 11/02/24 11/02/24 11/02/24 Range/Units 04:54 05:00 07:22 WBC 15.4 H (4.8-10.8) X10*3/uL RBC 4.03 L (4.20-5.50) X10*6/uL Hgb 12.4 (12.0-16.0) g/dl Hct 36.7 L (37.0-47.0) % MCV 91.1 (80.0-98.0) fL MCH 30.8 (27.0-33.0) pg MCHC 33.8 (31.0-35.0) g/dl RDW 13.2 (11.0-16.0) % Plt Count 234 D (160-400) X10*3/uL MPV 10.1 (9.4-12.3) fL Immature Gran % (Auto) 0.3 (0.0-0.4) % Neut % (Auto) 84.6 H (45-73) % Lymph % (Auto) 7.1 L (20-40) % Ventura % (Auto) 6.1 (2-11) % Eos % (Auto) 1.6 (0-4) % Baso % (Auto) 0.3 (0-2) % Lymph # (Auto) 1.1 L (1.2-4.9) X10*3/uL [place]ura # (Auto) 0.9 (0.1-1.2) X10*3/uL Eos # (Auto) 0.3 (0.0-0.4) X10*3/uL Baso # (Auto) 0.0 (0.0-0.2) X10*3/uL Abs Immat Gran (auto) 0.05 H (0.00-0.03) X10*3/uL Absolute Neuts (auto) 13.0 H (2.0-8.3) x10*3/uL Absolute Nucleated RBC 0.000 (0.0-0.012) X10*3/uL Nucleated RBC % (auto) 0.0 (0.0-0.2) /100WBC PT 18.6 H (10.9-12.4) SEC INR 1.6 H (0.9-1.1) VBG pH 7.42 (7.32-7.43) VBG pCO2 37 mmHg VBG pO2 51 mmHg VBG HCO3 24 (22-26) mmol/L VBG O2 Saturation 81.0 % VBG Base Excess 0.3 mmol/L Sodium 140 (135-145) mmol/L Potassium 3.4 (3.3-5.1) mmol/L Chloride 107 (96-108) mmol/L Carbon Dioxide 21 L (22-29) mmol/L Anion Gap 15 (12-20) BUN 20 H (9-16) mg/dL Creatinine 0.85 (0.5-1.4) mg/dL Estim Creat Clear Calc 46.8 Estimated GFR > 60 Random Glucose 146 H (60-115) mg/dL Lactic Acid 2.0 2.2 H* (0.5-2.0) mmol/L Calcium 8.8 D (8.4-10.2) mg/dL Total Bilirubin 0.7 (0.0-1.0) mg/dL AST 22 (5-31) U/L ALT 15 (0-31) U/L Alkaline Phosphatase 89 (39-117) U/L Troponin I High Sens 6.9 (<3.5-17.0) ng/L Total Protein 6.7 (6.5-8.0) g/dL Albumin 4.0 (3.5-5.0) g/dL Independent Interpretation I performed an independent interpretation of an: EKG and Plain X-Ray Interpretation: See above Radiology Impression Discussion of test interpretation with radiology: I have reviewed the radiologist's reading. Radiologist Impression: See above External Record Review External record reviewed: Prior outpatient labs and Prior outpatient radiology Chronic Conditions Patient?s care impacted by: Other Atrial fibrillation Discharge Plan Discharge Clinical Impression: Syncope, Hypoxia, Pneumonia Patient Disposition: Admitted As Inpatient Print Language: Syriac
[2024-11-02] MEDS: cefEPime HCl/D5W 2 GM/50 ML PIGGYBACK IV (07:36)
[2024-11-02] MEDS: 0.9 % Sodium Chloride 1,000 ML 999 ML IV (07:37)
[2024-11-02 07:48] LABS: Lactic Acid 2.2 mmol/L (0.5-2.0)
--- NOTE | 2024-11-02 08:50 | PC.NURSE ---
Alert and oriented, family at bedside. Denies pain or discomfort. Reports feeling weak and tired. Medicated per mar. Brought to CT
[2024-11-02 09:24] LABS: Reflex Lactate? Lactic Acid Added
[2024-11-02 09:36] LABS: Appearance Urine Clear; Color Urine Yellow; Glucose Urine UA Negative (Negative); Leukocyte Esterase Urine Small (1+) (Negative); Nitrite Urine Negative (Negative); PH 5.5 (5.0-9.0); UMIC TRIGGER UACC YES; Urine Blood Small (1+) (Negative); Urine Ketones Trace mg/dL (Negative); Urine Protein Trace mg/dL (Neg-Trace)
[2024-11-02 09:52] LABS: Bacteria Urine Trace (None Seen); Hyaline Casts Urine 0-2 /LPF (0-2); UACC Culture Trigger YES; WBC Urine 0-5 /HPF (0-5)
[2024-11-02 10:13] LABS: Influenza A PCR NEGATIVE (Negative); Influenza B PCR NEGATIVE (Negative); Resp Syncy Virus RNA Qual PCR NEGATIVE (Negative); SARS COV2 PCR INHOUSE NEGATIVE (Negative)
--- NOTE | 2024-11-02 10:29 | PHA.MEDREC ---
Pharmacy Consult ? Medication Reconciliation Pharmacy has completed the medication reconciliation. Spoke with patient and family at bedside, they didn't really know the patient's meds but received a list from care facility that was checked against pharmacy claims to confirm home meds.
--- NOTE | 2024-11-02 11:21 | P.HPHOSP_ITS ---
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 Pt is a poor historian and remembers calling for her daughter to help her go to the bathroom but does not remember much of anything else about incident. Daughter no longer at bedside and was unable to reach her by phone to help supplement HPI. According to chart and provider review, pt apparently had an acute episode of weakness and lethargy without LOC after using the bathroom and having a bowel movement. EMS found pt to be hypotensive at 70/40 and satting at 90% on RA. Pt was given 100 mL IVF and placed on 2 L NC and brought to the ED. Pt herself reports has had a ?little? mostly nonproductive cough for the past few days without any additional acute medical complaints. Reports has been experiencing 1 episode daily of loose/liquid stool for many months now, likely for the past year. Denies shortness or breath or difficulty breathing. No lightheadedness or dizziness. Denies chest pain/pressure, palpitations. No nausea, vomiting or abdominal pain. Chronic left lower extremity peripheral neuropathy. Of note, pt presented to the hospital last year on 12/09/2023 for similar syncopal episode while on the toilet that was deemed possibly vasovagal vs secondary to hypovolemia in the setting of diarrhea. In the ED pt with soft BP as low as 103/51, satting as low as 91% on RA. Labs were significant for leukocytosis of 15.4, initial lactic acid WNL w/ repeat 2.2. Stable H&H. Significant electrolyte abnormalities. Renal function baseline. Hepatic function WNL. UA negative for UTI. Tested negative for flu, RSV, and COVID. CXR showed retrocardiac opacity possibly representing atelectasis vs infiltrate. CT?of chest concerning for possible acute inflammatory vs infectious process. CT of head negative for acute fracture or intracranial hemorrhage, but show encephalomalacia likely secondary to prior infarct and small-vessel occlusive disease. EKG demonstrated atrial fibrillation evidence of significant ST elevations or depressions. Pt was treated with cefepime. Pt will be admitted to the hospital for treatment and further evaluation of presyncope in the setting of multifocal pneumonia. Review of Systems 2 Review of Systems: Negative except for that which is stated in the HPI [facility] Medical History Pyuria Episode of syncope Urinary tract infection Syncope, vasovagal Atrial fibrillation Right hemiparesis HLD (hyperlipidemia) Atrial fibrillation History of malignant melanoma History of basal cell carcinoma History of dysplastic nevus Degenerative joint disease (DJD) of hip Low back pain radiating to left lower extremity History of squamous cell carcinoma Venous insufficiency (chronic) (peripheral) Diarrhea Hypertension Family History Father Throat cancer Mother Kidney failure Surgical History H/O breast biopsy Hx of colonoscopy Hx of cholecystectomy Hx of appendectomy Social History Household Members: Spouse and Children Housing: House Do you presently have visiting nurse or other home services: Yes ([employer] approx. 4 days/week-shower.) Alcohol intake: former Patient Tobacco Use Status: Never used Tobacco Smoked in Last 30 Days: No Use of substances other than those prescribed or required for medical reasons: No Any prior treatment program specific to substance use: No Have you been hit, kicked, punched, or otherwise hurt by someone within the past year? If so, by whom?: No Do you feel safe in your current relationship?: Yes Is there a partner from a previous relationship who is making you feel unsafe now?: No Advance Directives: Yes Advance Directives on File: Yes Advance Directives Date on File: 11/02/23 Do you have a plan to hurt others: No Plan Recently lost weight without trying: No Eating poorly because of decreased appetite: No Nutrition Risks: No Nutritional Risk Patient : No : No Poor oral hygiene: No service: No Meds Allergies Allergy/AdvReac Type Severity Reaction Status Date / Time codeine Allergy Unknown rash Verified 11/02/24 04:46 Penicillins AdvReac Hives Verified 11/02/24 04:46 terbinafine [From Lamisil] AdvReac Hives Verified 11/02/24 04:46 Home Medications ?Medication ?Instructions ?Recorded ?Confirmed ?Last Taken ?Type losartan 50 mg tablet 50 mg PO DAILY 10/01/23 11/02/24 12/08/23 History toedmmcafbnh-ckwoskon-dryywa tablet 1 tab PO DAILY 10/01/23 11/02/24 12/08/23 History pantoprazole 40 mg tablet,delayed 40 mg PO DAILY@0630 10/01/23 11/02/24 12/08/23 History release apixaban 5 mg tablet (Eliquis) 5 mg PO BID 10/10/23 11/02/24 12/08/23 History melatonin 3 mg tablet 6 mg PO BEDTIME Sleep 10/10/23 11/02/24 12/07/23 History metoprolol tartrate 50 mg tablet 25 mg PO BID 10/21/23 11/02/24 12/08/23 History nystatin 100,000 unit/gram topical 1 appl topical TID PRN Rash 10/21/23 11/02/24 Unknown History powder cranberry fruit 450 mg tablet 450 mg PO BID 12/08/23 11/02/24 Unknown History (cranberry) ketoconazole 2 % topical cream 1 appl topical BID PRN Rash 12/08/23 11/02/24 Unknown History loperamide 2 mg capsule 4 mg PO BID 01/21/24 11/02/24 Unknown History acetaminophen 500 mg tablet 1,000 mg PO Q8H PRN Pain 11/02/24 11/02/24 Unknown History ascorbic acid (vitamin C) 500 mg 500 mg PO DAILY 11/02/24 11/02/24 Unknown History tablet (Vitamin C) clotrimazole-betamethasone 1 1 appl topical BID PRN Rash 11/02/24 11/02/24 Unknown History %-0.05 % topical cream potassium chloride 20 mEq 20 meq PO DAILY 11/02/24 11/02/24 Unknown History tablet,extended release vitamin D3 125 mcg (5,000 1 cap PO DAILY 11/02/24 11/02/24 Unknown History unit)-vitamin K2 90 mcg capsule Physical Exam 2 Vital Signs and Narrative: Vital Signs: Last Vital Signs Temp 98.0 F 11/02/24 06:17 Pulse 78 11/02/24 09:16 Resp 16 11/02/24 06:17 BP 138/58 L 11/02/24 09:16 Pulse Ox 93 11/02/24 06:17 O2 Del Method Room Air 11/02/24 06:17 BMI result Body Mass Index 28.2 Constitutional: Alert, in no acute distress. Mental Status: Oriented to person, place and time. Eyes: Pupils are equal, round, and reactive to light. Ear, Nose, and Throat: Oropharynx clear, mucous membranes moist. Ears and nose without deformities. Trachea midline. Respiratory: Clear to auscultation bilaterally. No wheezing, rales, or rhonchi. Cardiovascular: Irregularly irregular rhythm. Gastrointestinal: Abdomen soft, non-tender, non-distended. Normal bowel sounds. Neurologic: No focal neurological deficits. Moves all extremities spontaneously. Chronic right-sided upper and lower extremity weakness. Skin: Warm, dry. Extremities: No edema. Psychiatric: Normal mood and affect. Results Labs 11/03/24 06:12 11/02/24 04:54 Labs: Laboratory Results - last 24 hr 11/02/24 11/02/24 11/02/24 04:54 05:00 07:22 MCV 91.1 MCH 30.8 MCHC 33.8 RDW 13.2 Plt Count 234 D MPV 10.1 Immature Gran % (Auto) 0.3 Neut % (Auto) 84.6 H Lymph % (Auto) 7.1 L [place] % (Auto) 6.1 Eos % (Auto) 1.6 Baso % (Auto) 0.3 Lymph # (Auto) 1.1 L [place] # (Auto) 0.9 Eos # (Auto) 0.3 Baso # (Auto) 0.0 Abs Immat Gran (auto) 0.05 H Absolute Neuts (auto) 13.0 H Absolute Nucleated RBC 0.000 Nucleated RBC % (auto) 0.0 PT 18.6 H INR 1.6 H VBG pH 7.42 VBG pCO2 37 VBG pO2 51 VBG HCO3 24 VBG O2 Saturation 81.0 VBG Base Excess 0.3 Anion Gap 15 Estim Creat Clear Calc 46.8 Estimated GFR > 60 Random Glucose 146 H Lactic Acid 2.0 2.2 H* Calcium 8.8 D Total Bilirubin 0.7 AST 22 ALT 15 Alkaline Phosphatase 89 Troponin I High Sens 6.9 Total Protein 6.7 Albumin 4.0 Urine Color Urine Appearance Urine pH Ur Specific [place] Urine Protein Urine Glucose (UA) Urine Ketones Urine Blood Urine Nitrite Ur Leukocyte Esterase Urine RBC Urine WBC Ur Squamous Epith Cells Urine Bacteria Hyaline Casts Influenza Type A (PCR) Influenza Type B (PCR) RSV RNA Qual (PCR) SARS-CoV-2 RNA (RT-PCR) 11/02/24 09:29 MCV MCH MCHC RDW Plt Count MPV Immature Gran % (Auto) Neut % (Auto) Lymph % (Auto) [place] % (Auto) Eos % (Auto) Baso % (Auto) Lymph # (Auto) [place] # (Auto) Eos # (Auto) Baso # (Auto) Abs Immat Gran (auto) Absolute Neuts (auto) Absolute Nucleated RBC Nucleated RBC % (auto) PT INR VBG pH VBG pCO2 VBG pO2 VBG HCO3 VBG O2 Saturation VBG Base Excess Anion Gap Estim Creat Clear Calc Estimated GFR Random Glucose Lactic Acid Calcium Total Bilirubin AST ALT Alkaline Phosphatase Troponin I High Sens Total Protein Albumin Urine Color Yellow Urine Appearance Clear Urine pH 5.5 Ur Specific [place] 1.020 Urine Protein Trace Urine Glucose (UA) Negative Urine Ketones Trace Urine Blood Small (1+) H Urine Nitrite Negative Ur Leukocyte Esterase Small (1+) H Urine RBC 3-5 H Urine WBC 0-5 Ur Squamous Epith Cells 6-10 Urine Bacteria Trace Hyaline Casts 0-2 Influenza Type A (PCR) NEGATIVE Influenza Type B (PCR) NEGATIVE RSV RNA Qual (PCR) NEGATIVE SARS-CoV-2 RNA (RT-PCR) NEGATIVE Imaging Radiologist's Impressions: Impressions Chest CT 11/02/24 07:49 IMPRESSION: Consider acute inflammatory versus infectious processes involving lingula, right middle lobe and lower lung lobes with the associated subcentimeter pulmonary nodules. Mild interstitial lung edema should be considered. Fleischner guidelines were followed. Electronically signed by: Daryl Metzger MD 11/02/2024 08:52 AM EST RP Head CT 11/02/24 08:03 IMPRESSION: No acute fracture, bony calvarium. No acute intracranial hemorrhage. Encephalomalacia left frontal temporal lobes sequela of prior infarct, left MCA territory. Small vessel occlusive disease. 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 Pt will be admitted to the hospital for treatment and further evaluation of presyncope in the setting of multifocal pneumonia. Acute weakness and lethardy Acute episode while pt on the toilet during bowel movement ?Presyncope vs Syncopy Orthostatics negative Etiology unclear: Differential includes vasovagal, cardiac, secondary to pneumonia and/or hypovolemia in the setting chronic diarrhea Pt with similar presentation on 12/09/2023 Patient received IVF in ED Will check orthostatics tomorrow Treat pneumonia as below Monitor on telemetry Multifocal pneumonia CT of chest concerning for acute multifocal inflammatory vs infectious process Patient does not meet sepsis criteria: Leukocytosis, but no fever, tachycardia or tachypnea Will treat with doxycycline, started 12/08/2023 Lactic acidosis Initial lactic acid WNL but repeat elevated at 2.2 Likely secondary to tissue hypoperfusion from dehydration, not sepsis Pt received IVF in the ED Persistent AFib Continue metoprolol, Eliquis HLD/Hx of CVA Continue statin HTN Hold amlodipine and losartan due to soft BP Resume as warranted GERD Continue pantoprazole Mood disorder Continue home meds Full Code Attending:?Dr. Mtz DVT Prophylaxis: On Eliquis Due to patient's significant comorbidities and risk for rapid deconditioning, pt will require a hospitalization of at least two nights for treatment of?acute multifocal pneumonia and presyncopal vs syncopal episode. Pt will require hospital level care for IVF, IV antibiotics, and close cardiac monitoring. Quality Stroke Does the patient have a stroke diagnosis?: No VTE Prior VTE?: No VTE Risk Level:: Medical - moderate - high VTE Device Contraindication: Treatment Not Indicated VTE Drug Contraindication: N/A - Med Ordered
[2024-11-02 12:14] LABS: Cancel Lactic Acid Canceled
[2024-11-02] MEDS: Doxycycline Hyclate 100 MG in 0.9 % Sodium Chloride 250 ML 166.67 MG IV (12:54)
[2024-11-02] MEDS: Acetaminophen 325 MG TABLET 650 MG PO (20:23)
[2024-11-02] MEDS: Gabapentin 300 MG CAPSULE PO (21:12)
[2024-11-02] MEDS: Apixaban 5 MG TABLET PO (21:12)
[2024-11-02] MEDS: Metoprolol Tartrate 25 MG TABLET PO (21:12)
[2024-11-03] VITALS (9 sets, daily range): BP systolic 126–183; BP diastolic 70–91; PULSE 60–79; RESP 12–20; TEMP 36.4–37; O2SAT 95–98
[2024-11-03] MEDS: 0.9 % Sodium Chloride Flush 3 ML SYRINGE IVFLUSH ×4 (00:51→20:46)
[2024-11-03] MEDS: Doxycycline Hyclate 100 MG in 0.9 % Sodium Chloride 250 ML 166.67 MG IV ×2 (00:51→12:42)
[2024-11-03 07:17] LABS: Hematocrit 34.7 % (37.0-47.0); Mean Corpuscular HGB Conc 34.6 g/dl (31.0-35.0); Mean Corpuscular Hemoglobin 30.6 pg (27.0-33.0); Mean Corpuscular Volume 88.5 fL (80.0-98.0); PLT CLUMP 1; Red Blood Count 3.92 X10*6/uL (4.20-5.50); Red Cell Distribution Width 13.7 % (11.0-16.0)
[2024-11-03] MEDS: Metoprolol Tartrate 25 MG TABLET PO ×2 (08:20→20:45)
[2024-11-03] MEDS: Ascorbic Acid 500 MG TABLET PO (08:21)
[2024-11-03] MEDS: amLODIPine Besylate 2.5 MG TABLET PO (08:21)
[2024-11-03] MEDS: Multivitamin TABLET 1 TAB PO (08:21)
[2024-11-03 08:22] LABS: Mean Platelet Volume 11.4 fL (9.4-12.3); Platelet Count 179 X10*3/uL (160-400)
[2024-11-03] MEDS: Apixaban 5 MG TABLET PO ×2 (08:22→20:45)
[2024-11-03] MEDS: Potassium Chloride ER 20 MEQ TAB.ER.PRT PO (08:23)
--- NOTE | 2024-11-03 08:32 | P.PNIM_ITS ---
Subjective Subjective Date of Service: 11/04/24 Interval History: Had large bowel movement this morning, denies headache, no nausea, no vomiting, denies headache, no lightheadedness or dizziness., complaining of cough unable to spit up phlegm, no recurrent fevers. Review of Systems All other system reviewed and are negative. Physical Exam 2 Vital Signs: Vital Signs: Last Vital Signs Temp 98.1 F 11/03/24 07:56 Pulse 70 11/03/24 08:20 Resp 18 11/03/24 07:56 BP 152/75 H 11/03/24 08:21 Pulse Ox 96 11/03/24 07:56 O2 Del Method Room Air 11/03/24 07:56 BMI result Body Mass Index 28.2 Const: Other: General resting comfortably in no acute distress. Neck supple no JVD. CVS irregular rate rhythm, Respiratory lungs clear to auscultation, no respiratory distress, no wheeze, no rhonchi. Gastrointestinal abdomen soft, nontender, bowel sounds audible, no no guarding , no rigidity. Extremities no edema. Neuro speech clear/right upper and lower extremity weakness chronic. Skin no rash Appropriate affect Objective Data Active Medications Acetaminophen (Acetaminophen 325 Mg Tablet) 650 mg PO Q6H PRN PRN Reason: Pain, Mild 1-3,fever,headache Last Admin: 11/02/24 20:23 Dose: 650 mg Documented By: ELLEN Amlodipine Besylate (Amlodipine Besylate 2.5 Mg Tablet) 2.5 mg PO DAILY [facility]; Protocol Last Admin: 11/03/24 08:21 Dose: 2.5 mg Documented By: SIMON Apixaban (Apixaban 5 Mg Tablet) 5 mg PO BID [facility] Last Admin: 11/03/24 08:22 Dose: 5 mg Documented By: SIMON Ascorbic Acid (Ascorbic Acid 500 Mg Tablet) 500 mg PO DAILY [facility] Last Admin: 11/03/24 08:21 Dose: 500 mg Documented By: SIMON Calcium Carbonate (Calcium Carbonate 750 Mg Tab.Chew) 750 mg PO Q4H PRN PRN Reason: Heartburn Clotrimazole (Clotrimazole 1 % Cream 15 Gm Tube) 1 appl TOPICAL BID PRN PRN Reason: Rash Gabapentin (Gabapentin 300 Mg Capsule) 300 mg PO BEDTIME [facility] Last Admin: 11/02/24 21:12 Dose: 300 mg Documented By: ELLEN Doxycycline Hyclate 100 mg/ (Sodium Chloride) 250 mls @ 166.67 mls/hr IV Q12H [facility] Last Infusion: 11/03/24 07:03 Dose: Infused Documented By: SIMON Magnesium Hydroxide (Milk Of Magnesia 30 Ml Oral.Susp) 30 ml PO DAILY PRN PRN Reason: Constipation Melatonin (Melatonin 3 Mg Tablet) 6 mg PO BEDTIME PRN PRN Reason: Insomnia Metoprolol Tartrate (Metoprolol Tartrate 25 Mg Tablet) 25 mg PO BID [facility]; Protocol Last Admin: 11/03/24 08:20 Dose: 25 mg Documented By: SIMON Multivitamins/Vitamin C (Multivitamin Tablet) 1 tab PO DAILY [facility] Last Admin: 11/03/24 08:21 Dose: 1 tab Documented By: SIMON Nystatin (Nystatin Powder 15 Gm Bottle) 1 appl TOPICAL TID PRN; Protocol PRN Reason: Rash Nystatin/Triamcinolone Acetonide (Nystatin/Triamcinolone Cream 15 Gm Tube) 1 appl TOPICAL BID PRN PRN Reason: Rash Omeprazole (Omeprazole 20 Mg Capsule.Dr) 20 mg PO DAILY@0630 [facility] Last Admin: 11/03/24 06:44 Dose: Not Given Documented By: SHELBY Non-Admin Reason: Patient Asleep Ondansetron HCl (Ondansetron Hcl 4 Mg/2 Ml Vial) 4 mg IVPUSH Q8H PRN PRN Reason: Nausea and Vomiting Potassium Chloride (Potassium Chloride Er 20 Meq Tab.Er.Prt) 20 meq PO DAILY [facility] Last Admin: 11/03/24 08:23 Dose: 20 meq Documented By: SIMON Comments: barcode damaged. unable to scan. Sodium Chloride (0.9 % Sodium Chloride Flush 3 Ml Syringe) 3 ml IVFLUSH QSHIFT [facility] Last Admin: 11/03/24 08:23 Dose: 3 ml Documented By: SIMON Labs 11/03/24 06:12 11/03/24 08:33 Labs: Laboratory Results - last 24 hr 11/02/24 11/02/24 11/03/24 09:29 11:27 06:12 MCV 88.5 MCH 30.6 MCHC 34.6 RDW 13.7 Plt Count 179 MPV 11.4 Absolute Nucleated RBC 0.000 Nucleated RBC % (auto) 0.0 Lactic Acid F/U @ 2Hr Cancelled Urine Color Yellow Urine Appearance Clear Urine pH 5.5 Ur Specific [place] 1.020 Urine Protein Trace Urine Glucose (UA) Negative Urine Ketones Trace Urine Blood Small (1+) H Urine Nitrite Negative Ur Leukocyte Esterase Small (1+) H Urine RBC 3-5 H Urine WBC 0-5 Ur Squamous Epith Cells 6-10 Urine Bacteria Trace Hyaline Casts 0-2 Influenza Type A (PCR) NEGATIVE Influenza Type B (PCR) NEGATIVE RSV RNA Qual (PCR) NEGATIVE SARS-CoV-2 RNA (RT-PCR) NEGATIVE Microbiology Microbiology Results: Microbiology 11/02/24 04:54 Blood Culture - Preliminary Blood - Venous No growth after 24 hours. 11/02/24 04:54 Blood Culture - Preliminary Blood - Venous No growth after 24 hours. 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 Pt will be admitted to the hospital for treatment and further evaluation of presyncope in the setting of multifocal pneumonia. Acute weakness and lethargy with question presyncope versus syncope Orthostatics negative on admission Differential includes vasovagal, cardiac, secondary to pneumonia and/or hypovolemia in the setting chronic diarrhea similar presentation on 12/09/2023 Treat pneumonia as below Monitor on telemetry Multifocal pneumonia CT of chest concerning for acute multifocal inflammatory vs infectious process, No sepsis, WBC normalized , no recurrent fever on iv doxycycline, started 12/08/2023 urine and blood cultures no growth times 24 hours Acute Lactic acidosis Initial lactic acid WNL but repeat elevated at 2.2 Likely secondary to tissue hypoperfusion from dehydration, not sepsis, status post IV fluid follow lactic acid Persistent AFib Continue metoprolol, Eliquis HLD/Hx of CVA Continue statin HTN BP improved continue amlodipine and metoprolol and hold losartan 50 mg and follow BP GERD Continue ppi Mood disorder Continue home meds Full Code DVT Prophylaxis: On Eliquis Due to patient's significant comorbidities and risk for rapid deconditioning, pt will require continued inpatient hospitalization for treatment of?acute multifocal pneumonia and presyncopal vs syncopal episode. Quality Stroke Does the patient have a stroke diagnosis?: No VTE Prior VTE?: No VTE Risk Level:: Medical - moderate - high VTE Device Contraindication: Treatment Not Indicated VTE Drug Contraindication: N/A - Med Ordered
[2024-11-03 09:02] LABS: Anion Gap 12 (12-20); Blood Urea Nitrogen 13 mg/dL (9-16); Calcium 9.2 mg/dL (8.4-10.2); Carbon Dioxide 22 mmol/L (22-29); Chloride 107 mmol/L (96-108); Creatinine Clr Calc Pharmacy 57.7; Estimated Glomerular Filt Rate > 60; Glucose Random 98 mg/dL (60-115); Potassium 3.3 mmol/L (3.3-5.1); Sodium 138 mmol/L (135-145)
--- NOTE | 2024-11-03 10:39 | MHC.CM.PN ---
IMM 11/03. Pt lives at home with her and 2 adult sons. Pt receives a home health aid from [facility] 5 nights/week. Pt uses a cane. Pts daughter will transport her home at discharge. HCP on file and verified. PCP: Dr. Jonna Soto
--- NOTE | 2024-11-03 13:11 | PC.NURSE ---
p: alteration in gastrointestinal i: per nursing care plan e: pt incontinent of copious amounts of stool. MD aware. she reports this happens to her at home as well. Denies nausea/vomiting. p: alteration in tissue perfusion i: per nursing care plan e: blood pressures remained WNL. denies dizziness/lightheadedness/syncope. BPs remained in the 150s sbp during orthostatics. p: alteration in neurological function i: per nursing care plan e: pt reports that she has weakness in the left upper/lower extremities. However, charting reports that her right side is baseline weaker. upon assessment, right arm and leg seem to be slightly weaker than left. confirmed with family at bedside that her right side is normally the weaker one (as reported in previous charting).
--- NOTE | 2024-11-03 16:01 | PC.NURSE ---
Peripheral Saline Lock #20 to L wrist-pt. reports discomfort with flushing with NS flush. Site is without redness or swelling at this time. Edita (Primary nurse) was notified. Jennifer Lara, MSN, RN, [facility] PN body recall instructor
--- NOTE | 2024-11-03 16:23 | P.CDIM_ITS ---
PROVIDER RESPONSE TEXT: To clarify, the appropriate diagnosis supported by the clinical indicators: Acute QUERY TEXT: PHYSICIAN'S DOCUMENTATION REQUEST Date of Query: 11/03/2024 11:56 AM EST Patient Name: Cande Marx Admit Date: 11/02/2024 Dear Nolberto Mtz MD, A review of the medical record indicates additional documentation may be needed. Please review below and update the documentation accordingly. Clinical Indicators: LA 2.0, then 2.2 lactic acidosis from dehydration, not sepsis IVF Clarify which of the following accurately represents the acuity of the Lactic acidosis. Possible options might include: Acute Acute on chronic Compensated Chronic stable condition Remission Other (explain) Clinically unable to determine (explain) Thank you, Promise Crowe RN Use of terms such as suspected, likely, concern for, or probable (associated with a specific diagnosi s that is being evaluated, monitored, or treated as if it exists) are acceptable and can be coded in the inpatient se tting, when documented at the time of discharge. Please use your independent medical judgment in providing your response. THIS QUERY IS PART OF THE PERMANENT MEDICAL RECORD
[2024-11-03] MEDS: Gabapentin 300 MG CAPSULE PO (20:45)
[2024-11-04] VITALS: BP 118/69; PULSE 64; RESP 16; TEMP 37.3; O2SAT 95
[2024-11-04] MEDS: Doxycycline Hyclate 100 MG in 0.9 % Sodium Chloride 250 ML 166.67 MG IV (00:47)
[2024-11-04 04:00] VITALS: BP 143/67; PULSE 64; RESP 20; TEMP 36.1; O2SAT 96
[2024-11-04] MEDS: Omeprazole 20 MG CAPSULE.DR PO (06:35)
[2024-11-04 07:28] VITALS: BP 144/78; PULSE 59; RESP 16; TEMP 36.7; O2SAT 95
[2024-11-04] MEDS: Multivitamin TABLET 1 TAB PO (08:35)
[2024-11-04] MEDS: Potassium Chloride ER 20 MEQ TAB.ER.PRT PO (08:35)
[2024-11-04] MEDS: amLODIPine Besylate 2.5 MG TABLET PO (08:35)
[2024-11-04] MEDS: Metoprolol Tartrate 25 MG TABLET PO (08:35)
[2024-11-04] MEDS: Ascorbic Acid 500 MG TABLET PO (08:35)
[2024-11-04] MEDS: Apixaban 5 MG TABLET PO (08:35)
[2024-11-04] MEDS: 0.9 % Sodium Chloride Flush 3 ML SYRINGE IVFLUSH (08:36)
[2024-11-04 09:47] VITALS: BP 143/74; PULSE 63
[2024-11-04 09:49] VITALS: BP 177/79; PULSE 66
[2024-11-04 09:51] VITALS: BP 162/79; PULSE 70
--- NOTE | 2024-11-04 10:41 | P.DS_ITS ---
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 Pt is a poor historian and remembers calling for her daughter to help her go to the bathroom but does not remember much of anything else about incident. Daughter no longer at bedside and was unable to reach her by phone to help supplement HPI. According to chart and provider review, pt apparently had an acute episode of weakness and lethargy without LOC after using the bathroom and having a bowel movement. EMS found pt to be hypotensive at 70/40 and satting at 90% on RA. Pt was given 100 mL IVF and placed on 2 L NC and brought to the ED. Pt herself reports has had a ?little? mostly nonproductive cough for the past few days without any additional acute medical complaints. Reports has been experiencing 1 episode daily of loose/liquid stool for many months now, likely for the past year. Denies shortness or breath or difficulty breathing. No lightheadedness or dizziness. Denies chest pain/pressure, palpitations. No nausea, vomiting or abdominal pain. Chronic left lower extremity peripheral neuropathy. Of note, pt presented to the hospital last year on 12/09/2023 for similar syncopal episode while on the toilet that was deemed possibly vasovagal vs secondary to hypovolemia in the setting of diarrhea. In the ED pt with soft BP as low as 103/51, satting as low as 91% on RA. Labs were significant for leukocytosis of 15.4, initial lactic acid WNL w/ repeat 2.2. Stable H&H. Significant electrolyte abnormalities. Renal function baseline. Hepatic function WNL. UA negative for UTI. Tested negative for flu, RSV, and COVID. CXR showed retrocardiac opacity possibly representing atelectasis vs infiltrate. CT?of chest concerning for possible acute i nflammatory vs infectious process. CT of head negative for acute fracture or intracranial hemorrhage, but show encephalomalacia likely secondary to prior infarct and small-vessel occlusive disease. EKG demonstrated atrial fibrillation evidence of significant ST elevations or depressions. Pt was treated with cefepime. Pt will be admitted to the hospital for treatment and further evaluation of presyncope in the setting of multifocal pneumonia. Hospital course: 84-year-old female with a PMH significant for persistent AFib on Eliquis, hx of MCA stroke with residual right-sided weakness (07/2023), HTN, HLD, GERD, and mood disorder who presents to the ED for presyncopal episode while on the toilet witnessed by daughter this morning. Pt will be admitted to the hospital for treatment and further evaluation of presyncope in the setting of multifocal pneumonia. Admitted due to Acute weakness ,lethardy and near-syncope likely vasovagal, orthostatics were negative, CT chest concerning for acute multifocal pneumonia, patient treated with IV fluids due to acute lactic acidosis, and IV antibiotics with good response, patient did not meet sepsis criteria, leukocytosis normalized, had no fevers, at present patient is clinically stable able to ambulate with cane and seems to be at her baseline therefore she is being discharged home with family on doxycycline 1 tablet twice daily for 3 more days to finish a total 5 day course of antibiotics she is recommend to rest drink plenty of fluids. Persistent AFib Continue metoprolol, Eliquis HLD/Hx of CVA Continue statin HTN continue home medications amlodipine and losartan GERD Continue pantoprazole Mood disorder Continue home meds Time Attestation Discharge Coordination Time (in mins): 38 Quality: Safe Use of Opioids Does Pt have an Active Cancer Diagnosis on the Problem List?: No Quality: Stroke Does the patient have a stroke diagnosis?: No Physical Exam Vital Signs: Vital Signs: Last Vital Signs Temp 98.0 F 11/04/24 07:28 Pulse 70 11/04/24 09:51 Resp 16 11/04/24 07:28 BP 162/79 H 11/04/24 09:51 Pulse Ox 95 11/04/24 07:28 O2 Del Method Room Air 11/04/24 07:28 BMI result Body Mass Index 28.2 Const: Other: General resting comfortably in no acute distress. Neck supple no JVD. CVS irregular rate rhythm, Respiratory lungs clear to auscultation, no respiratory distress, no wheeze, no rhonchi. Gastrointestinal abdomen soft, non tender, bowel sounds audible, no no guarding , no rigidity. Extremities no edema. Neuro speech clear/right upper and lower extremity weakness chronic. Skin no rash Appropriate affect DS: Data Data Completed and Pending Labs on day of discharge: Preliminary micro results at discharge 11/02/24 04:54 Blood Culture - Preliminary Blood - Venous No growth after 48 hours. 11/02/24 04:54 Blood Culture - Preliminary Blood - Venous No growth after 48 hours. Discharge Plan Discharge Anticipated Discharge Date/Time: 11/04/24 10:21 Patient Disposition: Home, Self-Care Discharge Diagnosis: Near-syncope Multifocal pneumonia Acute lactic acidosis. Referrals: Jonna Dillard MD [Primary Care Provider] - 1 Week Discharge Medications: New doxycycline monohydrate 100 mg capsule 100 mg PO BID Qty: 6 0RF Continued (DME) Ultra-Light Rollator Misc See Rx Instructions .Route Qty: 1 0RF Rx Instructions: As directed metoprolol tartrate 50 mg tablet 25 mg PO BID nystatin 100,000 unit/gram powder 1 appl topical TID PRN (Reason: Rash) ascorbic acid (vitamin C) [Vitamin C] 500 mg Tablet 500 mg PO DAILY clotrimazole-betamethasone 1-0.05 % Cream 1 appl TOPICAL BID PRN (Reason: Rash) vitamin D3-vitamin K2 125-90 mcg Capsule 1 cap PO DAILY acetaminophen 500 mg Tablet 1,000 mg PO Q8H PRN (Reason: Pain) potassium chloride 20 mEq tablet extended release 20 meq PO DAILY Rx Instructions: take for 4 days than check labs ketoconazole 2 % cream 1 appl topical BID PRN (Reason: Rash) cranberry 450 mg Tablet 450 mg PO BID Rx Instructions: administer with meals amlodipine 5 mg tablet 2.5 mg PO DAILY Qty: 30 0RF pantoprazole 40 mg tablet,delayed release (DR/EC) 40 mg PO DAILY@0630 losartan 50 mg tablet 50 mg PO DAILY pledgfemrlat-nltfyyiz-lnqxwl Tablet 1 tab PO DAILY Eliquis 5 mg tablet 5 mg PO BID melatonin 3 mg tablet 6 mg PO BEDTIME loperamide 2 mg capsule 4 mg PO BID gabapentin 100 mg capsule 300 mg PO BEDTIME 30 Days Qty: 90 6RF Discharge Orders: Discharge Order (Routine); Ordered 11/04/24 Ordered By: Nolberto Mtz Diet: Advance to usual diet Activity on Discharge: As tolerated Stand Alone Forms: Patient Portal Discharge page Print Language: Malian Care Plan Goals: Near-syncope likely vasovagal Take doxycycline 1 tablet twice daily for 3 more days to finish a 5 day course of antibiotic/rest/fluids Use loperamide as needed for diarrhea Health Concerns: Continue all home medications as before Plan of Treatment: Outpatient follow-up with primary care physician call Assessment: As above
--- NOTE | 2024-11-04 11:16 | MHC.CM.PN ---
Patient has been medically cleared for dc to home today, self care.Last IMM was addressed on 11/03/2024.
== END 2024-11-04 11:32 | disposition home or self-care (01) | DRG 194 ==
LOC: HO.ED 08:21 → HO.EDOVER 12:38 → HO.IMC 11-03 02:28
PROVIDERS: Admitting Provider Student in an Organized Health Care Education/Training Program; Emergency Provider Student in an Organized Health Care Education/Training Program; PCP Internal Medicine; Visit Provider Hospitalist
DX: J18.9 Pneumonia, unspecified organism (principal); E87.21 Acute metabolic acidosis; I48.19 Other persistent atrial fibrillation; I69.351 Hemiplegia and hemiparesis following cerebral infarction affecting right dominant side; J98.11 Atelectasis; R55 Syncope and collapse; E78.5 Hyperlipidemia, unspecified; K21.9 Gastro-esophageal reflux disease without esophagitis; E86.0 Dehydration; F39 Unspecified mood [affective] disorder; Z20.822 Contact with and (suspected) exposure to COVID-19; Z79.01 Long term (current) use of anticoagulants; Z79.899 Other long term (current) drug therapy
CPT/HCPCS: 0241U; 36415; 70450; 71045; 71250; 80048; 80053; 81001; 82803; 83605; 84484; 85025; 85027; 85610; 87040; 87086; 93005; 99285; J0692

== ENCOUNTER → 2024-11-02 04:38 | Outpatient (BNV) | payer MEDICARE, SELFPAY | PROVIDERS: Admitting Provider Student in an Organized Health Care Education/Training Program; Emergency Provider Student in an Organized Health Care Education/Training Program; PCP Internal Medicine; Visit Provider Internal Medicine Cardiovascular Disease | DX: R94.31 Abnormal electrocardiogram [ECG] [EKG] (principal) | CPT/HCPCS: 93010 ==

== ENCOUNTER → 2024-11-02 05:00 | Outpatient (BNV) | payer MEDICARE, SELFPAY | PROVIDERS: PCP Internal Medicine; Visit Provider Radiology Diagnostic Radiology | DX: R05.9 Cough, unspecified (principal); R06.02 Shortness of breath; G93.89 Other specified disorders of brain; I73.9 Peripheral vascular disease, unspecified | CPT/HCPCS: 70450; 71250 ==

== ENCOUNTER → 2024-11-02 12:12 | Outpatient (BNV) | payer MEDICARE, SELFPAY | PROVIDERS: Admitting Provider Student in an Organized Health Care Education/Training Program; Emergency Provider Student in an Organized Health Care Education/Training Program; PCP Internal Medicine; Visit Provider Student in an Organized Health Care Education/Training Program | DX: J18.9 Pneumonia, unspecified organism (principal); R55 Syncope and collapse | CPT/HCPCS: 99223; 99232; 99239 ==

== ENCOUNTER 2024-11-06 20:01 | Inpatient (IN) | payer MEDICARE, SELFPAY ==
[2024-11-06] VITALS (8 sets, daily range): BP systolic 116–130; BP diastolic 43–97; PULSE 92–102; RESP 14–18; TEMP 36.4–38.1; O2SAT 92–97; BMI 28.2
--- NOTE | ~2024-11-06 | CT_ITS ---
CLINICAL HISTORY: abd pain ,vomiting, fever CT abdomen and pelvis without contrast Comparison: CT of the abdomen and pelvis from 10/21/2023 Findings: Small bilateral pleural effusions with underlying atelectasis and/or consolidation. Mild cardiomegaly with multi chamber enlargement of the heart. Small trace hiatal hernia. No small bowel obstruction. Severe stool burden is present, including imaged cecum. The appendix is not definitively seen. No free intraperitoneal air. Solid abdominal organs are unremarkable for noncontrast imaging with motion artifacts. No hydronephrosis. Vascular calcifications are multifocal. Uterus is anteverted. Mild wall thickening of the urinary bladder is nonspecific. No adnexal soft tissue mass by noncontrast CT. Subcutaneous edema is noted. Imaged rib deformities appear old chronic. Pelvis deformities appear old chronic. Gnsnplcr-nc-fqkgiz osteoarthritis of the hips with left-sided capsular calcifications. Degenerative changes also include lower lumbar facet arthropathy. IMPRESSION: 1. Severe stool burden. No small bowel obstruction. 2. Small hiatal hernia. 3. Small pleural effusions with underlying atelectasis/consolidation of the imaged lung bases. This document has been electronically signed by: Moshe Engel MD on 11/07/2024 02:17:43
--- NOTE | ~2024-11-06 | XR_ITS ---
CLINICAL HISTORY: worsening cough 1 view chest x-ray Comparison: CR - XR CHEST 1V - 11/02/24 05:00 EST Findings: Trace left-sided effusion with left basilar subsegmental atelectasis or infiltrate. Mild enlargement of the cardiac silhouette. No acute fracture. IMPRESSION: Trace left-sided effusion with left basilar subsegmental atelectasis or infiltrate. This document has been electronically signed by: Delta Hill MD, PHD on 11/06/2024 22:17:30
--- NOTE | ~2024-11-06 | CT_ITS ---
CLINICAL HISTORY: ?pna fever sob hypoxia CT chest without contrast Comparison: CT/IL/SR - CT CHEST WO IV CON - 11/02/24 08:03 EST Findings: Motion artifact degrades the images limiting interpretation. The heart is normal size. The visualized thyroid and mediastinum are unremarkable. Trace layering pleural effusions are present with basilar areas of subsegmental atelectasis or infiltrate. Ground-glass nodule or focal infiltrate measuring 6.6 mm is in the left upper lobe. The upper abdomen is unremarkable. The bones are intact. IMPRESSION: 1. Motion limited chest CT. 2. Small layering effusions with basilar areas of subsegmental atelectasis or infiltrate. 3. 6.6 mm ground-glass nodule or infiltrate in the medial left upper lobe. This document has been electronically signed by: Delta Hill MD, PHD on 11/06/2024 23:15:37
--- NOTE | 2024-11-06 21:01 | ECG_ITS ---
Test Reason : DYSPNEA Blood Pressure : */* mmHG Vent. Rate : 100 BPM Atrial Rate : * BPM P-R Int : * ms QRS Dur : 88 ms QT Int : 340 ms P-R-T Axes : * 64 212 degrees QTcB Int : 438 ms Atrial fibrillation Possible Anterior infarct (cited on or before 02-Nov-2024) ST & T wave abnormality, consider inferior ischemia Abnormal ECG When compared with ECG of 02-Nov-2024 04:38, Vent. rate has increased by 33 bpm T wave inversion now evident in Inferior leads T wave inversion now evident in Lateral leads Referred By: Molly Lopez Electronically Signed By: NIRAV VIZCARRA MD
--- NOTE | 2024-11-06 21:02 | ED_ITS ---
HPI - Fever General Chief Complaint: Fever Stated Complaint: Fever Time Seen by Provider: 11/06/24 20:55 Source: patient, family and old records reviewed Mode of arrival: EMS Limitations: no limitations History of Present Illness ED Provider: BOBBY KNIGHT Narrative: 84 yo female from home with PMH of PAF on eliquis, MCA stroke R sided weakness and some confusion at times, HTN, HLD, GERD, mood disorder, c diff infection 10/2023 just admitted here for a few days with DC on 11/04 on doxy for multifocal pneumonia confirmed by CT chest. Went home now back with worsening fevers, dyspnea found to be in 80s with EMS. She has vomited a few times. She feels lousy unclear if she kept her antibiotic down. No recent falls. She is very weak. Took tylenol at 5pm. MD elicited complaint: fever, malaise and weakness Onset (ago): day(s) (several) Context: recent antibiotic use and recent hospitalization Exacerbating factors: exertion Relieving factors: nothing Associated symptoms: chills, cough, nausea, vomiting and confusion Treatments prior to arrival fever: acetaminophen Related Data Home Medications ?Medication ?Instructions ?Recorded ?Confirmed losartan 50 mg tablet 50 mg PO DAILY 10/01/23 11/02/24 oyoyjchyfwvb-rzxgjcfa-jroonr tablet 1 tab PO DAILY 10/01/23 11/02/24 pantoprazole 40 mg tablet,delayed 40 mg PO DAILY@0630 10/01/23 11/02/24 release apixaban 5 mg tablet (Eliquis) 5 mg PO BID 10/10/23 11/02/24 melatonin 3 mg tablet 6 mg PO BEDTIME Sleep 10/10/23 11/02/24 metoprolol tartrate 50 mg tablet 25 mg PO BID 10/21/23 11/02/24 nystatin 100,000 unit/gram topical 1 appl topical TID PRN Rash 10/21/23 11/02/24 powder cranberry fruit 450 mg tablet 450 mg PO BID 12/08/23 11/02/24 (cranberry) ketoconazole 2 % topical cream 1 appl topical BID PRN Rash 12/08/23 11/02/24 loperamide 2 mg capsule 4 mg PO BID 01/21/24 11/02/24 acetaminophen 500 mg tablet 1,000 mg PO Q8H PRN Pain 11/02/24 11/02/24 ascorbic acid (vitamin C) 500 mg 500 mg PO DAILY 11/02/24 11/02/24 tablet (Vitamin C) clotrimazole-betamethasone 1 1 appl topical BID PRN Rash 11/02/24 11/02/24 %-0.05 % topical cream potassium chloride 20 mEq 20 meq PO DAILY 11/02/24 11/02/24 tablet,extended release vitamin D3 125 mcg (5,000 1 cap PO DAILY 11/02/24 11/02/24 unit)-vitamin K2 90 mcg capsule Previous Rx's ?Medication ?Instructions ?Recorded walker (Ultra-Light Rollator misc) #1 ea 08/22/21 amlodipine 5 mg tablet 2.5 mg (1/2 x 5 mg) PO DAILY #30 12/11/23 tabs gabapentin 100 mg capsule 300 mg (3 x 100 mg) PO BEDTIME 30 07/13/24 days #90 caps doxycycline monohydrate 100 mg 100 mg PO BID #6 caps 11/04/24 capsule Allergies Allergy/AdvReac Type Severity Reaction Status Date / Time codeine Allergy Unknown rash Verified 11/06/24 20:51 Penicillins AdvReac Hives Verified 11/06/24 20:51 terbinafine [From Lamisil] AdvReac Hives Verified 11/06/24 20:51 Review of Systems 2 Review of Systems: Constitutional : pos Fever, pos Chills, pos Fatigue ENT/Mouth : No sore throat, No Rhinorrhea Eyes: No Eye Pain, No Swelling, No Redness Cardiovascular : No Chest Pain, pos SOB Respiratory : pos Cough, No Sputum Gastrointestinal : pos Nausea, pos Vomiting, No Diarrhea, No abdominal Pain Genitourinary : No Dysuria, No Urinary Frequency, No Hematuria, Musculoskeletal : No joint pain, No Myalgias, No Joint Swelling Skin : No Skin Lesions, No rash Neuro : pos Weakness, No Numbness, No Dizziness, no Headache Psych : No Anxiety/Panic, No Depression All other systems reviewed and are negative [facility] Past Medical History Attestation statement: The following information was validated with the patient. Medical History Pyuria Episode of syncope Urinary tract infection Syncope, vasovagal Atrial fibrillation Right hemiparesis HLD (hyperlipidemia) Atrial fibrillation History of malignant melanoma History of basal cell carcinoma History of dysplastic nevus Degenerative joint disease (DJD) of hip Low back pain radiating to left lower extremity History of squamous cell carcinoma Venous insufficiency (chronic) (peripheral) Diarrhea Hypertension Surgical History H/O breast biopsy Hx of colonoscopy Hx of cholecystectomy Hx of appendectomy Family History Family History Father Throat cancer Mother Kidney failure Social History Social History Household Members: Spouse and Children Housing: House Do you presently have visiting nurse or other home services: Yes ([employer] approx. 4 days/week-shower.) Alcohol intake: former Comment: pt aware she needs to ask for help before getting up Patient Tobacco Use Status: Never used Tobacco Advance Directives: Yes Advance Directives on File: Yes Advance Directives Date on File: 11/02/23 service: No Physical Exam 2 Vital Signs: Vital Signs: Last Vital Signs Temp 100.5 F H 11/06/24 20:46 Pulse 92 11/06/24 21:45 Resp 18 11/06/24 21:45 BP 129/55 L 11/06/24 21:45 Pulse Ox 93 11/06/24 21:45 O2 Del Method Room Air 11/06/24 21:45 BMI result Body Mass Index 28.2 Appearance: Alert. Oriented X2. No acute distress. Eyes: Pupils equal, round and reactive to light. ENT: Pharynx dry MM Neck: Normal inspection. Neck supple. CVS: irregular heart rate and rhythm. Pulses normal. Respiratory: No respiratory distress. Breath sounds diminished throughout Abdomen: Soft and nontender. Skin: Skin warm and dry. pale skin color. Normal skin turgor. Extremities: No lower extremity edema. No calf ttp Neuro: Oriented X 2. R sided weakness. No sensory deficit. CN2-12 intact Medications Administered Generic Name Dose Route Start Last Admin Trade Name Freq PRN Reason Stop Dose Admin Vancomycin HCl 1,000 mg/ 535 mls @ 267.5 mls/hr 11/06/24 22:00 11/06/24 21:52 Vancomycin HCl 750 mg/ Sodium IV 11/06/24 23:59 267.5 mls/hr Chloride ONCE ONE Administration Discontinued Medications Generic Name Dose Route Start Last Admin Trade Name Freq PRN Reason Stop Dose Admin Cefepime HCl 2 gm in 50 mls @ 100 mls/hr 11/06/24 20:55 11/06/24 21:43 Maxipime IV 11/06/24 21:24 Infused ONCE ONE Infusion Lactated Ringer's 1,000 mls @ 999 mls/hr 11/06/24 20:55 11/06/24 21:17 Lr IV 11/06/24 21:55 999 mls/hr .Q1H1M ONE Administration Medical Decision Making Medical Decision Making [facility] Narrative: 84 yo female from home with PMH of PAF on eliquis, MCA stroke R sided weakness and some confusion at times, HTN, HLD, GERD, mood disorder, c diff infection 10/2023 here with c/o fevers, vomiting, shortness of breath, weakness - suspect failed treatment of multifocal pneumonia. At this time mild confusion but others stable, sepsis alert called, labs, lactic acid, cultures, empiric cefepime and vanco she may need prophylactic c diff therapy. Planned admit - repeat CXR Differential Diagnosis Differential Diagnoses: The differential diagnosis associated with the presentation includes pneumonia, fevers, weakness, dehydration Admission/Observation Consideration of admission/observation: Escalation of care including admission/observation considered admit given hypoxia and unable to take oral abx Consult Healthcare Provider Management of the patient was discussed with: Hospitalist (will admit) Lab Data [facility] Lab Attestation statement: I reviewed the patient's lab results. 11/06/24 21:14 11/06/24 21:14 Labs: Lab Results 11/06/24 Range/Units 21:14 WBC 26.3 H (4.8-10.8) X10*3/uL RBC 4.43 (4.20-5.50) X10*6/uL Hgb 13.7 (12.0-16.0) g/dl Hct 40.0 (37.0-47.0) % MCV 90.3 (80.0-98.0) fL MCH 30.9 (27.0-33.0) pg MCHC 34.3 (31.0-35.0) g/dl RDW 13.7 (11.0-16.0) % Plt Count 274 D (160-400) X10*3/uL MPV 10.1 (9.4-12.3) fL Immature Gran % (Auto) 0.7 H (0.0-0.4) % Neut % (Auto) 94.9 H (45-73) % Lymph % (Auto) 1.3 L (20-40) % Bell % (Auto) 2.7 (2-11) % Eos % (Auto) 0.2 (0-4) % Baso % (Auto) 0.2 (0-2) % Lymph # (Auto) 0.3 L (1.2-4.9) X10*3/uL Bell # (Auto) 0.7 (0.1-1.2) X10*3/uL Eos # (Auto) 0.1 (0.0-0.4) X10*3/uL Baso # (Auto) 0.1 (0.0-0.2) X10*3/uL Abs Immat Gran (auto) 0.18 H (0.00-0.03) X10*3/uL Absolute Neuts (auto) 25.0 H (2.0-8.3) x10*3/uL Absolute Nucleated RBC 0.000 (0.0-0.012) X10*3/uL Nucleated RBC % (auto) 0.0 (0.0-0.2) /100WBC Smear Tech's Comments VERIFIED Sodium 141 (135-145) mmol/L Potassium 3.8 (3.3-5.1) mmol/L Chloride 102 (96-108) mmol/L Carbon Dioxide 23 (22-29) mmol/L Anion Gap 20 (12-20) BUN 18 H (9-16) mg/dL Creatinine 0.81 (0.5-1.4) mg/dL Estim Creat Clear Calc 49.2 Estimated GFR > 60 Random Glucose 170 H (60-115) mg/dL Lactic Acid 2.8 H* (0.5-2.0) mmol/L Calcium 9.5 (8.4-10.2) mg/dL Total Bilirubin 0.9 (0.0-1.0) mg/dL AST 23 (5-31) U/L ALT 14 (0-31) U/L Alkaline Phosphatase 81 (39-117) U/L Troponin I High Sens 11.9 D (<3.5-17.0) ng/L C-Reactive Protein 4.94 H (< or = 0.50) mg/dL Total Protein 7.8 (6.5-8.0) g/dL Albumin 4.3 (3.5-5.0) g/dL Procalcitonin 0.85 ng/mL Independent Interpretation I performed an independent interpretation of an: EKG and Plain X-Ray Interpretation: Rate: 100 Rhythm: afib [place]: normal Normal QRS complex. ST T wave : flat t waves anterior leads, nonspecific ST T wave changes inf leads qTC: 438 prior studies: no ZEUS The study has been interpreted contemporaneously by me. . Radiology Impression Discussion of test interpretation with radiology: I have reviewed the radiologist's reading. Independent Historian Clinical information obtained from an independent historian. History obtained from or confirmed by: EMS and Other (family) External Record Review External record reviewed: Inpatient record and Outpatient record Critical Care Time Critical Care Time Critical Care Time: Yes Total Critical Care Time: 35 Attestation: hypoxia intervention, sepsis protocol, review of records I attest to this time spent taking care of the patient Discharge Plan Discharge Clinical Impression: Multifocal pneumonia, Hypoxia, Acidosis, lactic Elevated WBC count Qualifiers: Leukocytosis type: leukemoid reaction Qualified Code(s): D72.823 - Leukemoid reaction Patient Disposition: Admitted As Inpatient Print Language: Hungarian
--- OUTSIDE RECORDS SUMMARY | 2024-11-06 21:10 | XMS_ITS | Continuity of Care Document ---
Author Organization [facility] Address [address] [place] [address] Phone Care Team Providers Care Architectural Drafting Instructor Name Role Phone Loyd TO, Niecy Unavailable [...] E&M Established 15 Mins- CT & [place] [facility], [address] [place] [address] [address], [id number], [place] tel:[phone] [facility] Varicose veins of left lower extremity with other complication sRestless legs syndromeAthe rosclerotic heart disease of port lions coronary artery without angina pectorisCoro nary atherosclero sis due to lipid rich plaqueCerebr al infarction, unspecified 4 Loyd Pemberton. [address] [place] [address], [place], [place], [id number], [place]. tel:[phone] [facility], [address] [place] [address] Dr Yin 1000[address]Nan[place], [id number], [place] tel:[phone] [facility] Encounter for follow-up examination after completed treatment for conditions other than malignant neVaricose veins of left lower extremity with pain 4 Milton BECKER RVT, NOAH Hewitt. [address] [place] [address], [facility] [place], [id number], [place]. tel:[phone] Referring Provider: Kash Rose MD, RVT, NOAH, [address] [place] [address], [id number]. tel:[phone] [facility], [address] [place] [address] Dr Yin [address], [id number], [place] tel:[phone] [facility] Encounter for follow-up examination after completed treatment for conditions other than malignant neVaricose veins of left lower extremity with pain 4 Milton BECKER RVT, NOAH Hewitt. [address] [place], [place] [address]jim gonzalez [place], [id number], [place]. tel:[phone] Referring Provider: Kash Rose MD, RVT, NOAH, [address] [place] [address], [id number]. tel:[phone] [facility], [address] [place] [address] Dr Yin 1000[address], [id number], [place] tel:[phone] [facility] - [place] - [place] Varicose veins of left lower extremity with other complication s 4 Milton BECKER, JUANA, NOAH Hewitt. [address] [place] [address], [facility] [place], [id number], [place]. tel:[phone] Referring Provider: Kash Rose MD, JUANA, NOAH, [address] [place] [address], [place], [id number]. tel:[phone] Offic/outpt E&m Estab 5 Min Trial- Telemedicine CT & [place] [facility], [address] [place] [address] [address], [place], [id number], [place] tel:[phone] CVR - [facility] Venous insufficienc y (chronic) (peripheral) Restless legs syndromeAthe rosclerotic heart disease of [place] lions coronary artery without angina pectorisCoro nary atherosclero sis due to lipid rich plaqueCerebr al infarction, unspecified 4 Hyun Ortega. [address] [place] [address], [facility] [place], [id number], [place]. tel:[phone] Referring Provider: Jonna Ackerman, [address] [place] [address], [id number]. tel:[phone] Office/Oupt E&M New Pt 30 Mins- CT & [place] [facility], [address] [place] [address] [address], [place], [id number], [place] tel:[phone] CVR - [place] [facility] [place] Pruritus, unspecifiedV aricose veins of left lower extremity with other complication Jerald in right lower legPain in left lower legRestless legs syndromeEsse ntial (primary) hypertension Atherosclero tic heart disease of [place] lions coronary artery without angina pectorisCoro nary atherosclero sis due to lipid rich plaqueCerebr al infarction, unspecified 4 Milton BECKER, JUANA, NOAH Hewitt. [address] [address], [facility] [place], [id number], [place]. tel:[phone] Referring Provider: Jonna Ackerman, [address] [place] [address], [id number]. tel:[phone] [facility], [address], [place], [id number], [place] tel:[phone] CVR - [place] [facility] [place] Chronic venous hypertension (idiopathic) with other complication s of bilateral lower extremity Milton BECKER, RVT, RPVI Kash. [address], [place], [place], [id number], [place]. tel:[phone] Referring Provider: Jonna Soto MD [facility], [address] [place] [address], [id number]. tel:[phone] Family History Family Member Type Diagnosis Age At Onset No Information Payers Payer name Insurance type Covered green party ID Authoriza tion(s) Medicare NEYDA BARNARD [id number] BCBS NEYDA [id number] Medical Assistance NEYDA [id number] Social History Type Description Quantity Date Captured [...]
[2024-11-06] MEDS: cefEPime HCl/D5W 2 GM/50 ML PIGGYBACK IV (21:15)
[2024-11-06] MEDS: Lactated Ringers 1,000 ML 999 ML IV (21:17)
[2024-11-06 21:23] LABS: Basophils Absolute Auto 0.1 X10*3/uL (0.0-0.2); Basophils Percent Auto 0.2 % (0-2); Eosinophils Absolute Auto 0.1 X10*3/uL (0.0-0.4); Eosinophils Percent Auto 0.2 % (0-4); Hemoglobin 13.7 g/dl (12.0-16.0); Imm Gran Abs Auto 0.18 X10*3/uL (0.00-0.03); Imm Gran Pct Auto 0.7 % (0.0-0.4); Lymphocytes Absolute Auto 0.3 X10*3/uL (1.2-4.9); Lymphocytes Percent Auto 1.3 % (20-40); MANUAL DIFF FLAG SCAN; Mean Corpuscular HGB Conc 34.3 g/dl (31.0-35.0); Mean Corpuscular Hemoglobin 30.9 pg (27.0-33.0); Mean Corpuscular Volume 90.3 fL (80.0-98.0); Mean Platelet Volume 10.1 fL (9.4-12.3); Monocytes Absolute Auto 0.7 X10*3/uL (0.1-1.2); Monocytes Percent Auto 2.7 % (2-11); Neutrophils Percent Auto 94.9 % (45-73); Platelet Count 274 X10*3/uL (160-400); Red Blood Count 4.43 X10*6/uL (4.20-5.50); Red Cell Distribution Width 13.7 % (11.0-16.0); SCAN SMEAR FLAG 1; White Blood Count 26.3 X10*3/uL (4.8-10.8)
--- NOTE | 2024-11-06 21:38 | MHC.EDTECH ---
EKD delayed, machine being in use
[2024-11-06 21:43] LABS: Alanine Aminotransferase 14 U/L (0-31); Albumin Level 4.3 g/dL (3.5-5.0); Alkaline Phosphatase 81 U/L (39-117); Anion Gap 20 (12-20); Aspartate Amino Transferase 23 U/L (5-31); Bilirubin Total 0.9 mg/dL (0.0-1.0); Blood Urea Nitrogen 18 mg/dL (9-16); C Reactive Protein 4.94 mg/dL (< or = 0.50); Calcium 9.5 mg/dL (8.4-10.2); Carbon Dioxide 23 mmol/L (22-29); Chloride 102 mmol/L (96-108); Creatinine Clr Calc Pharmacy 49.2; Estimated Glomerular Filt Rate > 60; Glucose Random 170 mg/dL (60-115); Potassium 3.8 mmol/L (3.3-5.1); Sodium 141 mmol/L (135-145); Total Protein 7.8 g/dL (6.5-8.0)
[2024-11-06 21:44] LABS: Lactic Acid 2.8 mmol/L (0.5-2.0); SLIDE REVIEW VERIFIED; Troponin-I High Sensitivity 11.9 ng/L (<3.5-17.0)
[2024-11-06] MEDS: Acetaminophen 1,000 MG/100 ML PIGGYBACK 400 MG IV (21:52)
[2024-11-06] MEDS: vancomycin HCL 1,000 MG, vancomycin HCL 750 MG in 0.9 % Sodium Chloride 500 ML 267.5 MG IV (21:52)
[2024-11-06 21:59] LABS: Procalcitonin 0.85 ng/mL
[2024-11-06 23:20] LABS: Reflex Lactate? Lactic Acid Added
[2024-11-07] VITALS (8 sets, daily range): BP systolic 122–178; BP diastolic 54–86; PULSE 64–86; RESP 16–20; TEMP 36.3–37.2; O2SAT 96–98
[2024-11-07 00:15] LABS: ~Lactic Acid-LAB USE ONLY 2.7 mmol/L (0.5-2.0)
--- NOTE | 2024-11-07 00:21 | P.HPHOSP_ITS ---
History of Present Illness Date of Service: 11/07/24 Chief Complaint: Fever, cough This is a 84-year-old female with pertinent history of persistent atrial fibrillation on Eliquis, history of CVA with residual right-sided weakness, hypertension, mixed hyperlipidemia, mood disorder, gastroesophageal reflux disease who presents to the emergency department for evaluation of fever and chills. Patient was recently admitted to the hospital for presyncope and multifocal pneumonia and discharged on 11/04. Patient was discharged on doxycycline p.o.. Patient states she has been compliant with her home antibiotics. On the day of presentation patient was having chills and fevers. Also admits cough dyspnea which is worse with exertion. She did have multiple episodes of nonbloody emesis. Denies abdominal pain or diarrhea. No chest pain, palpitation, changes in bowel habits. Endorses malaise and easy fatigability. Review of Systems 2 Constitutional: Constitutional: Reports chills, Reports fatigue, Reports fever(s), Reports malaise and Reports poor appetite Cardiovascular: Cardiovascular: Reports dyspnea on exertion Respiratory: Respiratory: Reports cough and Reports dyspnea on exertion Gastrointestinal: Gastrointestinal: Reports nausea and Reports vomiting Endocrine: Endocrine: Reports fatigue [facility] Medical History Pyuria Episode of syncope Urinary tract infection Syncope, vasovagal Atrial fibrillation Right hemiparesis HLD (hyperlipidemia) Atrial fibrillation History of malignant melanoma History of basal cell carcinoma History of dysplastic nevus Degenerative joint disease (DJD) of hip Low back pain radiating to left lower extremity History of squamous cell carcinoma Venous insufficiency (chronic) (peripheral) Diarrhea Hypertension Family History Father Throat cancer Mother Kidney failure Surgical History H/O breast biopsy Hx of colonoscopy Hx of cholecystectomy Hx of appendectomy Social History Household Members: Spouse and Children Housing: House Do you presently have visiting nurse or other home services: Yes ([employer] approx. 4 days/week-shower.) Alcohol intake: former Comment: pt aware she needs to ask for help before getting up Patient Tobacco Use Status: Never used Tobacco Smoked in Last 30 Days: No Use of substances other than those prescribed or required for medical reasons: No Advance Directives: Yes Advance Directives on File: Yes Advance Directives Date on File: 11/02/23 service: No Meds Allergies Allergy/AdvReac Type Severity Reaction Status Date / Time codeine Allergy Unknown rash Verified 11/06/24 20:51 Penicillins AdvReac Hives Verified 11/06/24 20:51 terbinafine [From Lamisil] AdvReac Hives Verified 11/06/24 20:51 Home Medications ?Medication ?Instructions ?Recorded ?Confirmed ?Last Taken ?Type losartan 50 mg tablet 50 mg PO DAILY 10/01/23 11/02/24 12/08/23 History vabafspeucib-scaxhuzw-ewbmko tablet 1 tab PO DAILY 10/01/23 11/02/24 12/08/23 History pantoprazole 40 mg tablet,delayed 40 mg PO DAILY@0630 10/01/23 11/02/24 12/08/23 History release apixaban 5 mg tablet (Eliquis) 5 mg PO BID 10/10/23 11/02/24 12/08/23 History melatonin 3 mg tablet 6 mg PO BEDTIME Sleep 10/10/23 11/02/24 12/07/23 History metoprolol tartrate 50 mg tablet 25 mg PO BID 10/21/23 11/02/24 12/08/23 History nystatin 100,000 unit/gram topical 1 appl topical TID PRN Rash 10/21/23 11/02/24 Unknown History powder cranberry fruit 450 mg tablet 450 mg PO BID 12/08/23 11/02/24 Unknown History (cranberry) ketoconazole 2 % topical cream 1 appl topical BID PRN Rash 12/08/23 11/02/24 Unknown History loperamide 2 mg capsule 4 mg PO BID 01/21/24 11/02/24 Unknown History acetaminophen 500 mg tablet 1,000 mg PO Q8H PRN Pain 11/02/24 11/02/24 Unknown History ascorbic acid (vitamin C) 500 mg 500 mg PO DAILY 11/02/24 11/02/24 Unknown History tablet (Vitamin C) clotrimazole-betamethasone 1 1 appl topical BID PRN Rash 11/02/24 11/02/24 Unknown History %-0.05 % topical cream potassium chloride 20 mEq 20 meq PO DAILY 11/02/24 11/02/24 Unknown History tablet,extended release vitamin D3 125 mcg (5,000 1 cap PO DAILY 11/02/24 11/02/24 Unknown History unit)-vitamin K2 90 mcg capsule Physical Exam 2 Vital Signs and Narrative: Vital Signs: Last Vital Signs Temp 97.6 F 11/06/24 22:41 Pulse 94 11/06/24 22:49 Resp 16 11/06/24 22:49 BP 124/48 L 11/06/24 22:49 Pulse Ox 93 11/06/24 22:49 O2 Del Method Room Air 11/06/24 22:49 BMI result Body Mass Index 28.2 Elderly female lying in bed in no distress Neck supple, no JVD Irregularly irregular, S1-S2 heard Crackles present no wheezing Abdomen soft nontender, no guarding, no rigidity Patient is awake, alert and oriented to self, place, time and person ; no focal motor deficit Psych: Normal mood No pedal edema Results Labs 11/06/24 21:14 11/06/24 21:14 Labs: Laboratory Results - last 24 hr 11/06/24 11/06/24 21:14 23:56 MCV 90.3 MCH 30.9 MCHC 34.3 RDW 13.7 Plt Count 274 D MPV 10.1 Immature Gran % (Auto) 0.7 H Neut % (Auto) 94.9 H Lymph % (Auto) 1.3 L [place] % (Auto) 2.7 Eos % (Auto) 0.2 Baso % (Auto) 0.2 Lymph # (Auto) 0.3 L [place] # (Auto) 0.7 Eos # (Auto) 0.1 Baso # (Auto) 0.1 Abs Immat Gran (auto) 0.18 H Absolute Neuts (auto) 25.0 H Absolute Nucleated RBC 0.000 Nucleated RBC % (auto) 0.0 Smear Tech's Comments VERIFIED Anion Gap 20 Estim Creat Clear Calc 49.2 Estimated GFR > 60 Random Glucose 170 H Lactic Acid 2.8 H* Lactic Acid F/U @ 2Hr 2.7 H* Calcium 9.5 Total Bilirubin 0.9 AST 23 ALT 14 Alkaline Phosphatase 81 Troponin I High Sens 11.9 D C-Reactive Protein 4.94 H Total Protein 7.8 Albumin 4.3 Procalcitonin 0.85 Assessment and Plan (1) Multifocal pneumonia: Status: Acute (2) Acidosis, lactic: Status: Acute (3) Sepsis: Status: Acute Plan This is a 84-year-old female with pertinent history of persistent atrial fibrillation on Eliquis, history of CVA with residual right-sided weakness, hypertension, mixed hyperlipidemia, mood disorder, gastroesophageal reflux disease who presents to the emergency department for evaluation of fever and chills. #. Severe sepsis due to multifocal pneumonia: Recently diagnosed with multifocal pneumonia and discharged with p.o. doxycycline. Continues to have fevers with cough and dyspnea on exertion. Will admit patient and broaden in IV antibiotics. Noted worsening leukocytosis with elevated procalcitonin level. #. Acute lactic acidosis due to sepsis #. Persistent atrial fibrillation: On Eliquis and metoprolol #. History of CVA/mixed hyperlipidemia: Not on antiplatelet agent. On statin #. Hypertension: Continue home antihypertensives #. Gastroesophageal reflux disease: On PPI #. Mood disorder: Continue home mood stabilizers Med rec pending DVT prophylaxis: Eliquis Full code. Discussed with patient at bedside Admit as inpatient and will require two night minimum hospital stay for IV antibiotics (as above), which is not possible in a lesser acute setting. Quality Stroke Does the patient have a stroke diagnosis?: No VTE Prior VTE?: No VTE Risk Level:: Medical - moderate - high VTE Device Contraindication: Treatment Not Indicated VTE Drug Contraindication: N/A - Med Ordered
[2024-11-07 01:59] LABS: Reflex Lactate? 2 Y
--- NOTE | 2024-11-07 02:39 | MHC.EDTECH ---
This tech took over care of pt at 0135AM,pt is sleeping.appears comfortable,daughter at bedside
[2024-11-07 03:43] LABS: ~Lactic Acid-LAB USE ONLY 2.5 mmol/L (0.5-2.0)
[2024-11-07] MEDS: cefEPime HCl/D5W 2 GM/50 ML PIGGYBACK IV ×3 (04:13→21:40)
[2024-11-07 04:15] LABS: Cancel Lactic Acid Canceled
[2024-11-07 04:29] LABS: Basophils Percent Auto 0.2 % (0-2); Eosinophils Absolute Auto 0.3 X10*3/uL (0.0-0.4); Eosinophils Percent Auto 1.2 % (0-4); Hematocrit 33.6 % (37.0-47.0); Hemoglobin 11.4 g/dl (12.0-16.0); Imm Gran Abs Auto 0.12 X10*3/uL (0.00-0.03); Imm Gran Pct Auto 0.5 % (0.0-0.4); Lymphocytes Absolute Auto 0.7 X10*3/uL (1.2-4.9); Lymphocytes Percent Auto 2.9 % (20-40); MANUAL DIFF FLAG SCAN; Mean Corpuscular HGB Conc 33.9 g/dl (31.0-35.0); Mean Corpuscular Hemoglobin 30.8 pg (27.0-33.0); Mean Corpuscular Volume 90.8 fL (80.0-98.0); Mean Platelet Volume 9.9 fL (9.4-12.3); Monocytes Absolute Auto 0.6 X10*3/uL (0.1-1.2); Monocytes Percent Auto 2.3 % (2-11); Neutrophils Absolute Auto 22.3 x10*3/uL (2.0-8.3); Neutrophils Percent Auto 92.9 % (45-73); Platelet Count 243 X10*3/uL (160-400); Red Cell Distribution Width 13.7 % (11.0-16.0); SCAN SMEAR FLAG 1
[2024-11-07 04:31] LABS: Appearance Urine Clear; Color Urine Yellow; Glucose Urine UA Negative (Negative); Leukocyte Esterase Urine Trace (Negative); Nitrite Urine Negative (Negative); PH 5.5 (5.0-9.0); Specific Gravity - Urine 1.025 (1.005-1.025); UMIC TRIGGER UACC YES; Urine Blood Trace (Negative); Urine Ketones 15 mg/dL (Negative); Urine Protein Negative (Neg-Trace)
[2024-11-07 04:34] LABS: Bacteria Urine None Seen (None Seen); Hyaline Casts Urine 0-2 /LPF (0-2); UACC Culture Trigger YES
[2024-11-07 04:40] LABS: Anion Gap 15 (12-20); Blood Urea Nitrogen 18 mg/dL (9-16); Carbon Dioxide 20 mmol/L (22-29); Chloride 108 mmol/L (96-108); Creatinine Clr Calc Pharmacy 51.8; Estimated Glomerular Filt Rate > 60; Glucose Random 153 mg/dL (60-115); Potassium 3.7 mmol/L (3.3-5.1); Sodium 139 mmol/L (135-145)
--- NOTE | 2024-11-07 06:15 | MHC.EDTECH ---
Rounds and vitals completed,emptied 300MLS from canister ,petra-care given,repositioned to comfort,call aguilar in reach
--- NOTE | 2024-11-07 07:44 | PHA.PROG ---
Admission Date/Time: November 07, 2024 00:34 Indication: Respiratory Weight in k.2 kg Adjusted body weight in Kg: [facility] body weight in Kg: Obesity Dosing Indication % IBW: Serum Creatinine - Last 168 Hours 11/06/24 11/07/24 21:14 04:23 Creatinine 0.81 0.77 Estimated CrCl and GFR - Last 168 Hours 11/06/24 11/07/24 21:14 04:23 Estim Creat Clear Calc 49.2 51.8 Estimated GFR > 60 > 60 Vancomycin Loading Dose: 1750mg x 1 Current Vancomycin Dosing Regimen: 1500mg Q24H Vancomycin Monitoring using AUC goal of 400 - 600 range with trough as surrogate marker: 554 mg/L Date and Time for next Vancomycin Level to be drawn: 11/08 @1999 Pharmacist Comments on Vancomycin Plan: Predicted trough of 16 mg/L Vancomycin dosing will take advantage of [employer] as a clinical decision support tool that uses Bayesian modeling to calculate individual patient's pharmacokinetic parameters and forecast the patient's drug concentration time course with the target goal AUC 24 range of 400 - 600 mg/L/hr.
--- NOTE | 2024-11-07 09:24 | PHA.MEDREC ---
Addendum entered by Parisa Nunes RPh 11/07/24 09:47: Reviewed by [facility]. Original Note: Pharmacy Consult ? Medication Reconciliation Pharmacy has completed the medication reconciliation. Spoke with patient and family at bedside; daughter was at bedside and she states her brother is the one who usually takes care of their mom but he is currently out of the country; the patient had brought in a list but looking at the date it was a bit outdated but she was able to confirm what she is currently taking. She confirmed her Eliquis 5mg tab and states she is taking it twice a day. The daughter states her mom was taking the Doxycycline 100mg tab twice a day for 3 days and states she was suppose to finish that this morning but was not able to due to coming in the ED. The patient confirmed she is taking the Gabapentin 100mg tab and states she has been taking 2 tabs at bedtime for pain in her legs. The daughter confirmed the patient finished the Nitrofurantoin tablets sometime in the last week but did not know the day. The patient confirmed she took all her medications yesterday.
[2024-11-07] MEDS: 0.9 % Sodium Chloride Flush 3 ML SYRINGE IVFLUSH ×3 (09:26→21:41)
[2024-11-07] MEDS: Milk of Magnesia 30 ML ORAL.SUSP PO (15:42)
--- NOTE | 2024-11-07 15:50 | PM.EVENT ---
Event Note Date of Service: 11/07/24 Event Note: 84-year-old female with pertinent history of persistent atrial fibrillation on Eliquis, history of CVA with residual right-sided weakness, hypertension, mixed hyperlipidemia, mood disorder, gastroesophageal reflux disease who presents to the emergency department for evaluation of fever and chills. Patient was recently discharged from [facility] on doxycycline 1 tablet twice daily for concern of multifocal pneumonia as per patient patient was doing fine up until yesterday evening went shopping then she developed fevers start throwing up, no abdominal pain, no diarrhea, also felt short of breath worse with exertion, as per daughter patient was compliant with her home medication #. Severe sepsis due to multifocal pneumonia: Noted to have lactic acidosis/leukocytosis/tachycardia Recently diagnosed with multifocal pneumonia and discharged with p.o. doxycycline. Continue IV cefepime and vanco Procalcitonin 0.85 Check stool for C diff antibiotics. #. Acute lactic acidosis due to sepsis #. Persistent atrial fibrillation: On Eliquis and metoprolol #. History of CVA/mixed hyperlipidemia: Not on antiplatelet agent. On statin #. Hypertension: Continue metoprolol hold losartan. #. Gastroesophageal reflux disease: On PPI #. Mood disorder: Continue home mood stabilizers Med rec completed. DVT prophylaxis: Eliquis Full code. Admit as inpatient and will require two night minimum hospital stay for IV antibiotics (as above), which is not possible in a lesser acute setting. Time Spent With Patient Time: Total time managing care of this patient today ____ minutes.
[2024-11-07] MEDS: Apixaban 5 MG TABLET PO (21:38)
[2024-11-07] MEDS: Gabapentin 100 MG CAPSULE 200 MG PO (21:38)
[2024-11-07] MEDS: Metoprolol Tartrate 25 MG TABLET PO (21:39)
[2024-11-07] MEDS: vancomycin HCL 1,500 MG in 0.9 % Sodium Chloride 500 ML 333.33 MG IV (21:41)
[2024-11-08 04:00] VITALS: BP 141/69; PULSE 58; RESP 18; TEMP 36.3; O2SAT 97
[2024-11-08] MEDS: cefEPime HCl/D5W 2 GM/50 ML PIGGYBACK IV ×2 (04:07→16:28)
[2024-11-08 06:12] LABS: Creatinine Clr Calc Pharmacy 55.3; Estimated Glomerular Filt Rate > 60
[2024-11-08] MEDS: Omeprazole 40 MG CAPSULE.DR PO (06:21)
[2024-11-08 08:00] VITALS: BP 150/70; PULSE 66; RESP 16; TEMP 36.8; O2SAT 98
[2024-11-08] MEDS: amLODIPine Besylate 2.5 MG TABLET PO (08:47)
[2024-11-08] MEDS: Potassium Chloride ER 20 MEQ TAB.ER.PRT PO (08:47)
[2024-11-08] MEDS: Apixaban 5 MG TABLET PO ×2 (08:47→20:01)
[2024-11-08] MEDS: Metoprolol Tartrate 25 MG TABLET PO ×2 (08:47→20:01)
[2024-11-08] MEDS: 0.9 % Sodium Chloride Flush 3 ML SYRINGE IVFLUSH ×2 (08:51→16:28)
--- NOTE | 2024-11-08 09:14 | MHC.CM.PN ---
IMM delivered. Patient lives in a home w/ and 2 adult sons. Ambulates w/ a cane. Uses w/c PRN. Has private pay services via [place] 5 nights/wk to assist w/ showering. PCP Jonna Soto MD HCP on file and verified. DP: Home w/ family, resume private care, ? need for VNA. Daughter will transport. CM will continue to follow.
--- NOTE | 2024-11-08 15:18 | HO.PM.IMPN ---
Subjective Subjective Date of Service: 11/08/24 Interval History: Discussed with nursing staff; no acute issues overnight. Tolerating therapies Review of Systems Denies chest pain Denies shortness of breath Denies nausea vomiting diarrhea Denies fever chills Physical Exam Vital Signs: Vital Signs: Last Vital Signs Temp 98.3 F 11/08/24 08:00 Pulse 66 11/08/24 08:00 Resp 16 11/08/24 08:00 BP 150/70 H 11/08/24 08:00 Pulse Ox 98 11/08/24 08:00 O2 Del Method Room Air 11/08/24 08:00 BMI result Body Mass Index 28.2 Const: Other: Awake alert no acute distress Resp: Other: Diminished at bases with crackles left greater than right Cardio: Other: No S4; positive S1-S2; no S3 murmurs rubs or gallops GI: Other: Soft nontender nondistended normoactive bowel sounds Extrem: Other: No edema bilaterally Objective Data Active Medications Acetaminophen (Acetaminophen 325 Mg Tablet) 650 mg PO Q6H PRN PRN Reason: Pain, Mild 1-3,fever,headache Albuterol/Ipratropium (Albuterol/Iprat 2.5/0.5mg 3 Ml Ampul.Neb) 3 ml INHALE Q4H PRN PRN Reason: Shortness of Breath/Wheezing Amlodipine Besylate (Amlodipine Besylate 2.5 Mg Tablet) 2.5 mg PO DAILY [facility]; Protocol Last Admin: 11/08/24 08:47 Dose: 2.5 mg Documented By: ZOEY Apixaban (Apixaban 5 Mg Tablet) 5 mg PO BID [facility] Last Admin: 11/08/24 08:47 Dose: 5 mg Documented By: ZOEY Benzonatate (Benzonatate 100 Mg Capsule) 100 mg PO TID PRN PRN Reason: Cough Calcium Carbonate (Calcium Carbonate 750 Mg Tab.Chew) 750 mg PO Q4H PRN PRN Reason: Heartburn Gabapentin (Gabapentin 100 Mg Capsule) 200 mg PO BEDTIME [facility] Last Admin: 11/07/24 21:38 Dose: 200 mg Documented By: DAVID Vancomycin HCl 1,500 mg/ (Sodium Chloride) 500 mls @ 333.333 mls/hr IV Q24H [facility] Last Infusion: 11/07/24 23:12 Dose: Infused Documented By: DAVID Cefepime HCl (Maxipime) 2 gm in 50 mls @ 100 mls/hr IV Q12H [facility] Loperamide HCl (Loperamide Hcl 2 Mg Capsule) 4 mg PO QID PRN PRN Reason: Diarrhea Magnesium Hydroxide (Milk Of Magnesia 30 Ml Oral.Susp) 30 ml PO DAILY PRN PRN Reason: Constipation Last Admin: 11/07/24 15:42 Dose: 30 ml Documented By: MOHSEN Melatonin (Melatonin 3 Mg Tablet) 6 mg PO BEDTIME PRN PRN Reason: Insomnia Metoprolol Tartrate (Metoprolol Tartrate 25 Mg Tablet) 25 mg PO BID [facility]; Protocol Last Admin: 11/08/24 08:47 Dose: 25 mg Documented By: ZOEY Omeprazole (Omeprazole 40 Mg Capsule.Dr) 40 mg PO DAILY@0630 [facility] Last Admin: 11/08/24 06:21 Dose: 40 mg Documented By: DAVID Ondansetron HCl (Ondansetron Hcl 4 Mg/2 Ml Vial) 4 mg IVPUSH Q8H PRN PRN Reason: Nausea and Vomiting Pharmacy Consult (Consult Rx Vancomycin Dosing) 1 each MISCELLANE DAILY PRN PRN Reason: Consult order Potassium Chloride (Potassium Chloride Er 20 Meq Tab.Er.Prt) 20 meq PO DAILY [facility] Last Admin: 11/08/24 08:47 Dose: 20 meq Documented By: ZOEY Sodium Chloride (0.9 % Sodium Chloride Flush 3 Ml Syringe) 3 ml IVFLUSH QSHIFT [facility] Last Admin: 11/08/24 08:51 Dose: 3 ml Documented By: ZOEY Labs 11/07/24 04:23 11/08/24 05:29 Labs: Laboratory Results - last 24 hr 11/08/24 05:29 Estim Creat Clear Calc 55.3 Estimated GFR > 60 Microbiology Microbiology Results: Microbiology 11/07/24 Unknown Urine Culture - Final Urine clean catch - Clean Catch Midstream No growth. 11/06/24 21:08 Blood Culture - Preliminary Blood - Venous No growth after 24 hours. 11/06/24 21:08 Blood Culture - Preliminary Blood - Venous No growth after 24 hours. Assessment and Plan (1) Sepsis: Status: Acute (2) Multifocal pneumonia: Status: Acute Plan This is a 84-year-old female with pertinent history of persistent atrial fibrillation on Eliquis, history of CVA with residual right-sided weakness, hypertension, mixed hyperlipidemia, mood disorder, gastroesophageal reflux disease who presents to the emergency department for evaluation of fever and chills. 1.Severe sepsis due to multifocal pneumonia (severe sepsis resolved) -cefepime/vanco (2) -follow up cultures -currently no oxygen requirement 2.Persistent atrial fibrillation -acceptable control on current therapies -adjust as indicated -Eliquis as ordered 3.Hypertension -acceptable control on current therapies -adjust as indicated Eliquis Full code Requires ongoing hospitalization for IV antibiotics to treat multifocal pneumonia that of failed outpatient therapies Quality Stroke Does the patient have a stroke diagnosis?: No VTE Prior VTE?: No VTE Risk Level:: Medical - moderate - high VTE Device Contraindication: Treatment Not Indicated VTE Drug Contraindication: N/A - Med Ordered
[2024-11-08 15:32] VITALS: BP 158/73; PULSE 69; RESP 17; TEMP 36.2; O2SAT 96
[2024-11-08 19:42] VITALS: BP 160/75; PULSE 73; RESP 18; TEMP 36.8; O2SAT 97
[2024-11-08 20:01] VITALS: BP 160/75; PULSE 73
[2024-11-08] MEDS: Gabapentin 100 MG CAPSULE 200 MG PO (20:01)
[2024-11-08 20:30] LABS: Vancomycin Random 14.8 mcg/mL (15-20)
[2024-11-08] MEDS: vancomycin HCL 1,500 MG in 0.9 % Sodium Chloride 500 ML 333.33 MG IV (21:46)
[2024-11-09 03:19] VITALS: BP 158/80; PULSE 58; RESP 18; TEMP 36.8; O2SAT 98
[2024-11-09] MEDS: cefEPime HCl/D5W 2 GM/50 ML PIGGYBACK IV ×2 (04:44→17:17)
[2024-11-09] MEDS: Omeprazole 40 MG CAPSULE.DR PO (05:33)
[2024-11-09 07:00] LABS: MANUAL DIFF FLAG NO
[2024-11-09 07:15] LABS: Basophils Absolute Auto 0.1 X10*3/uL (0.0-0.2); Eosinophils Percent Auto 12.3 % (0-4); Hematocrit 36.4 % (37.0-47.0); Imm Gran Abs Auto 0.06 X10*3/uL (0.00-0.03); Imm Gran Pct Auto 0.7 % (0.0-0.4); Lymphocytes Absolute Auto 2.2 X10*3/uL (1.2-4.9); Lymphocytes Percent Auto 25.8 % (20-40); Mean Corpuscular Hemoglobin 30.4 pg (27.0-33.0); Mean Corpuscular Volume 92.2 fL (80.0-98.0); Mean Platelet Volume 10.4 fL (9.4-12.3); Monocytes Absolute Auto 0.7 X10*3/uL (0.1-1.2); Monocytes Percent Auto 7.8 % (2-11); Neutrophils Absolute Auto 4.4 x10*3/uL (2.0-8.3); Neutrophils Percent Auto 52.4 % (45-73); Platelet Count 247 X10*3/uL (160-400); Red Blood Count 3.95 X10*6/uL (4.20-5.50); Red Cell Distribution Width 13.8 % (11.0-16.0); White Blood Count 8.3 X10*3/uL (4.8-10.8)
[2024-11-09 07:16] LABS: Alanine Aminotransferase 16 U/L (0-31); Albumin Level 3.6 g/dL (3.5-5.0); Alkaline Phosphatase 68 U/L (39-117); Anion Gap 15 (12-20); Aspartate Amino Transferase 20 U/L (5-31); Bilirubin Total 0.4 mg/dL (0.0-1.0); Blood Urea Nitrogen 14 mg/dL (9-16); Calcium 9.6 mg/dL (8.4-10.2); Carbon Dioxide 24 mmol/L (22-29); Chloride 109 mmol/L (96-108); Estimated Glomerular Filt Rate > 60; Glucose Fasting 92 mg/dL (60-99); Potassium 3.6 mmol/L (3.3-5.1); Sodium 144 mmol/L (135-145); Total Protein 6.6 g/dL (6.5-8.0)
[2024-11-09 07:40] VITALS: BP 146/65; PULSE 66; RESP 18; TEMP 37.1; O2SAT 97
[2024-11-09] MEDS: amLODIPine Besylate 2.5 MG TABLET PO (08:08)
[2024-11-09] MEDS: Metoprolol Tartrate 25 MG TABLET PO ×2 (08:08→20:28)
[2024-11-09] MEDS: Apixaban 5 MG TABLET PO ×2 (08:08→20:28)
[2024-11-09] MEDS: Potassium Chloride ER 20 MEQ TAB.ER.PRT PO (08:08)
[2024-11-09] MEDS: 0.9 % Sodium Chloride Flush 3 ML SYRINGE IVFLUSH ×2 (08:13→17:36)
[2024-11-09 10:17] VITALS: BP 146/65; PULSE 66; O2SAT 97
--- NOTE | 2024-11-09 11:02 | MHC.CM.PN ---
PT rec home w/ services. CM met with patient, and daughter at bedside. Family prefers [facility]. However, they are at capacity and unable to accept. Agreeable to [facility] services. Plan for dc tomorrow.
[2024-11-09 16:00] VITALS: BP 141/72; PULSE 78; RESP 18; TEMP 36.2; O2SAT 97
--- NOTE | 2024-11-09 16:22 | P.PNIM_ITS ---
Subjective Subjective Date of Service: 11/09/24 Interval History: No acute issues overnight. Remains tolerant of therapies Review of Systems Denies chest pain Denies shortness of breath Denies nausea vomiting diarrhea Denies fever chills Physical Exam 2 Vital Signs: Vital Signs: Last Vital Signs Temp 97.2 F 11/09/24 16:00 Pulse 78 11/09/24 16:00 Resp 18 11/09/24 16:00 BP 141/72 H 11/09/24 16:00 Pulse Ox 97 11/09/24 16:00 O2 Del Method Room Air 11/09/24 16:00 BMI result Body Mass Index 28.2 Const: Other: Awake alert no acute distress Resp: Other: Diminished at bases with crackles left greater than right Cardio: Other: No S4; positive S1-S2; no S3 murmurs rubs or gallops GI: Other: Soft nontender nondistended normoactive bowel sounds Extrem: Other: No edema bilaterally Objective Data Active Medications Acetaminophen (Acetaminophen 325 Mg Tablet) 650 mg PO Q6H PRN PRN Reason: Pain, Mild 1-3,fever,headache Albuterol/Ipratropium (Albuterol/Iprat 2.5/0.5mg 3 Ml Ampul.Neb) 3 ml INHALE Q4H PRN PRN Reason: Shortness of Breath/Wheezing Amlodipine Besylate (Amlodipine Besylate 2.5 Mg Tablet) 2.5 mg PO DAILY [facility]; Protocol Last Admin: 11/09/24 08:08 Dose: 2.5 mg Documented By: ZOEY Apixaban (Apixaban 5 Mg Tablet) 5 mg PO BID [facility] Last Admin: 11/09/24 08:08 Dose: 5 mg Documented By: ZOEY Benzonatate (Benzonatate 100 Mg Capsule) 100 mg PO TID PRN PRN Reason: Cough Calcium Carbonate (Calcium Carbonate 750 Mg Tab.Chew) 750 mg PO Q4H PRN PRN Reason: Heartburn Gabapentin (Gabapentin 100 Mg Capsule) 200 mg PO BEDTIME [facility] Last Admin: 11/08/24 20:01 Dose: 200 mg Documented By: DAVID Vancomycin HCl 1,500 mg/ (Sodium Chloride) 500 mls @ 333.333 mls/hr IV Q24H [facility] Last Infusion: 11/08/24 23:20 Dose: Infused Documented By: DAVID Cefepime HCl (Maxipime) 2 gm in 50 mls @ 100 mls/hr IV Q12H [facility] Last Infusion: 11/09/24 05:15 Dose: Infused Documented By: DAVID Loperamide HCl (Loperamide Hcl 2 Mg Capsule) 4 mg PO QID PRN PRN Reason: Diarrhea Magnesium Hydroxide (Milk Of Magnesia 30 Ml Oral.Susp) 30 ml PO DAILY PRN PRN Reason: Constipation Last Admin: 11/07/24 15:42 Dose: 30 ml Documented By: MOHSEN Melatonin (Melatonin 3 Mg Tablet) 6 mg PO BEDTIME PRN PRN Reason: Insomnia Metoprolol Tartrate (Metoprolol Tartrate 25 Mg Tablet) 25 mg PO BID [facility]; Protocol Last Admin: 11/09/24 08:08 Dose: 25 mg Documented By: ZOEY Omeprazole (Omeprazole 40 Mg Capsule.Dr) 40 mg PO DAILY@0630 [facility] Last Admin: 11/09/24 05:33 Dose: 40 mg Documented By: DAVID Ondansetron HCl (Ondansetron Hcl 4 Mg/2 Ml Vial) 4 mg IVPUSH Q8H PRN PRN Reason: Nausea and Vomiting Pharmacy Consult (Consult Rx Vancomycin Dosing) 1 each MISCELLANE DAILY PRN PRN Reason: Consult order Potassium Chloride (Potassium Chloride Er 20 Meq Tab.Er.Prt) 20 meq PO DAILY [facility] Last Admin: 11/09/24 08:08 Dose: 20 meq Documented By: ZOEY Sodium Chloride (0.9 % Sodium Chloride Flush 3 Ml Syringe) 3 ml IVFLUSH QSHIFT [facility] Last Admin: 11/09/24 08:13 Dose: 3 ml Documented By: ZOEY Labs 11/09/24 05:28 11/09/24 05:28 Labs: Laboratory Results - last 24 hr 11/08/24 11/09/24 20:04 05:28 MCV 92.2 MCH 30.4 MCHC 33.0 RDW 13.8 Plt Count 247 MPV 10.4 Immature Gran % (Auto) 0.7 H Neut % (Auto) 52.4 Lymph % (Auto) 25.8 [place] % (Auto) 7.8 Eos % (Auto) 12.3 H Baso % (Auto) 1.0 Lymph # (Auto) 2.2 [place] # (Auto) 0.7 Eos # (Auto) 1.0 H Baso # (Auto) 0.1 Abs Immat Gran (auto) 0.06 H Absolute Neuts (auto) 4.4 Absolute Nucleated RBC 0.000 Nucleated RBC % (auto) 0.0 Anion Gap 15 Estim Creat Clear Calc 57.0 Estimated GFR > 60 Fasting Glucose 92 Calcium 9.6 D Total Bilirubin 0.4 AST 20 ALT 16 Alkaline Phosphatase 68 Total Protein 6.6 Albumin 3.6 Random Vancomycin 14.8 L Microbiology Microbiology Results: Microbiology 11/06/24 21:08 Blood Culture - Preliminary Blood - Venous No growth after 48 hours. 11/06/24 21:08 Blood Culture - Preliminary Blood - Venous No growth after 48 hours. Assessment and Plan (1) Multifocal pneumonia: Status: Acute (2) Atrial fibrillation: Status: Acute Plan This is a 84-year-old female with pertinent history of persistent atrial fibrillation on Eliquis, history of CVA with residual right-sided weakness, hypertension, mixed hyperlipidemia, mood disorder, gastroesophageal reflux disease who presents to the emergency department for evaluation of fever and chills. 1.Severe sepsis due to multifocal pneumonia (severe sepsis resolved) -cefepime/vanco (3) -cultures negative times 48 hours -currently no oxygen requirement 2.Persistent atrial fibrillation -acceptable control on current therapies -adjust as indicated -Eliquis as ordered 3.Hypertension -acceptable control on current therapies -adjust as indicated Eliquis Full code Requires ongoing hospitalization for IV antibiotics to treat multifocal pneumonia that of failed outpatient therapies Quality Stroke Does the patient have a stroke diagnosis?: No VTE Prior VTE?: No VTE Risk Level:: Medical - moderate - high VTE Device Contraindication: Treatment Not Indicated VTE Drug Contraindication: N/A - Med Ordered
[2024-11-09 19:19] VITALS: BP 158/74; PULSE 74; RESP 18; TEMP 36.9; O2SAT 96
[2024-11-09 20:28] VITALS: BP 158/74; PULSE 74
[2024-11-09] MEDS: Gabapentin 100 MG CAPSULE 200 MG PO (20:28)
[2024-11-09 20:30] LABS: Vancomycin Random 17.6 mcg/mL (15-20)
--- NOTE | 2024-11-09 20:36 | HE.PHANOTE ---
RE: VANCO DOSING Trough came back as 17.6. Dose is continued at 1000 mg q24h, next trough is scheduled for 11/10/24 @1999.
[2024-11-09] MEDS: vancomycin HCL 1,500 MG in 0.9 % Sodium Chloride 500 ML 333.33 MG IV (22:17)
[2024-11-10 03:44] VITALS: BP 134/70; PULSE 75; RESP 16; TEMP 36.4; O2SAT 97
[2024-11-10] MEDS: cefEPime HCl/D5W 2 GM/50 ML PIGGYBACK IV (05:20)
[2024-11-10] MEDS: Omeprazole 40 MG CAPSULE.DR PO (05:49)
[2024-11-10] MEDS: Milk of Magnesia 30 ML ORAL.SUSP PO (05:50)
[2024-11-10 06:34] LABS: MANUAL DIFF FLAG NO
[2024-11-10 06:46] LABS: Basophils Absolute Auto 0.1 X10*3/uL (0.0-0.2); Eosinophils Absolute Auto 1.1 X10*3/uL (0.0-0.4); Eosinophils Percent Auto 12.2 % (0-4); Hematocrit 36.9 % (37.0-47.0); Hemoglobin 12.4 g/dl (12.0-16.0); Imm Gran Pct Auto 1.1 % (0.0-0.4); Lymphocytes Absolute Auto 1.8 X10*3/uL (1.2-4.9); Lymphocytes Percent Auto 20.1 % (20-40); Mean Corpuscular HGB Conc 33.6 g/dl (31.0-35.0); Mean Corpuscular Hemoglobin 30.8 pg (27.0-33.0); Mean Corpuscular Volume 91.8 fL (80.0-98.0); Mean Platelet Volume 10.1 fL (9.4-12.3); Monocytes Absolute Auto 0.7 X10*3/uL (0.1-1.2); Neutrophils Absolute Auto 5.3 x10*3/uL (2.0-8.3); Neutrophils Percent Auto 57.6 % (45-73); Platelet Count 245 X10*3/uL (160-400); Red Blood Count 4.02 X10*6/uL (4.20-5.50); Red Cell Distribution Width 13.7 % (11.0-16.0); White Blood Count 9.2 X10*3/uL (4.8-10.8)
[2024-11-10 07:00] LABS: Alanine Aminotransferase 15 U/L (0-31); Albumin Level 3.6 g/dL (3.5-5.0); Alkaline Phosphatase 63 U/L (39-117); Anion Gap 10 (12-20); Aspartate Amino Transferase 18 U/L (5-31); Bilirubin Total 0.4 mg/dL (0.0-1.0); Blood Urea Nitrogen 13 mg/dL (9-16); Calcium 9.3 mg/dL (8.4-10.2); Carbon Dioxide 25 mmol/L (22-29); Chloride 112 mmol/L (96-108); Creatinine Clr Calc Pharmacy 60.4; Estimated Glomerular Filt Rate > 60; Glucose Fasting 98 mg/dL (60-99); Potassium 3.6 mmol/L (3.3-5.1); Sodium 143 mmol/L (135-145); Total Protein 6.5 g/dL (6.5-8.0)
[2024-11-10 08:05] VITALS: BP 132/69; PULSE 68; RESP 18; TEMP 36.4; O2SAT 93
[2024-11-10] MEDS: Metoprolol Tartrate 25 MG TABLET PO (09:39)
[2024-11-10] MEDS: amLODIPine Besylate 2.5 MG TABLET PO (09:39)
[2024-11-10] MEDS: Potassium Chloride ER 20 MEQ TAB.ER.PRT PO (09:40)
[2024-11-10] MEDS: Apixaban 5 MG TABLET PO (09:40)
[2024-11-10] MEDS: 0.9 % Sodium Chloride Flush 3 ML SYRINGE IVFLUSH (09:40)
[2024-11-10 11:19] VITALS: BP 132/69; PULSE 68; O2SAT 93
--- NOTE | 2024-11-10 13:18 | P.DS_ITS ---
DS: Providers Provider Date of Service: 11/10/24 Date of admission: 11/07/24 00:34 Date of discharge: 11/10/24 Primary care physician: Jonna Soto MD DS: Diagnosis Discharge Diagnosis (1) Multifocal pneumonia: Status: Acute (2) Atrial fibrillation: Status: Acute DS: Summary Hospital Course Hospital Course: 84-year-old female with pertinent history of persistent atrial fibrillation on Eliquis, history of CVA with residual right-sided weakness, hypertension, mixed hyperlipidemia, mood disorder, gastroesophageal reflux disease who presents to the emergency department for evaluation of fever and chills. Patient was recently admitted to the hospital for presyncope and multifocal pneumonia and discharged on 11/04. Patient was discharged on doxycycline p.o.. Patient states she has been compliant with her home antibiotics. On the day of presentation patient was having chills and fevers. Also admits cough dyspnea which is worse with exertion. She did have multiple episodes of nonbloody emesis. Denies abdominal pain or diarrhea. No chest pain, palpitation, changes in bowel habits. Endorses malaise and easy fatigability. Hospital Course Patient was admitted to general medical floor. CT scan did demonstrate persistent pneumonia however recently diagnosed. Patient was treated with IV volume repletion and IV vancomycin. Over the next 3 days patient improved dramatically and was without white count or fever. At this point she is medically acceptable for discharge to home. She has completed acceptable duration of IV antibiotics to treat pneumonia. She will be discharged home with home PT Time Attestation Discharge Coordination Time (in mins): 35 Quality: Safe Use of Opioids Does Pt have an Active Cancer Diagnosis on the Problem List?: No Quality: Stroke Does the patient have a stroke diagnosis?: No Physical Exam Vital Signs: Vital Signs: Last Vital Signs Temp 97.6 F 11/10/24 08:05 Pulse 68 11/10/24 11:19 Resp 18 11/10/24 08:05 BP 132/69 11/10/24 11:19 Pulse Ox 93 11/10/24 11:19 O2 Del Method Room Air 11/10/24 08:05 BMI result Body Mass Index 28.2 Const: Other: Awake alert no acute distress Resp: Other: Diminished at bases with crackles left greater than right Cardio: Other: No S4; positive S1-S2; no S3 murmurs rubs or gallops GI: Other: Soft nontender nondistended normoactive bowel sounds Extrem: Other: No edema bilaterally DS: Data Data Completed and Pending Labs on day of discharge: Laboratory Results - last 24 hr 11/09/24 11/10/24 20:05 06:13 WBC 9.2 RBC 4.02 L Hgb 12.4 Hct 36.9 L MCV 91.8 MCH 30.8 MCHC 33.6 RDW 13.7 Plt Count 245 MPV 10.1 Immature Gran % (Auto) 1.1 H Neut % (Auto) 57.6 Lymph % (Auto) 20.1 [place] % (Auto) 8.0 Eos % (Auto) 12.2 H Baso % (Auto) 1.0 Lymph # (Auto) 1.8 [place] # (Auto) 0.7 Eos # (Auto) 1.1 H Baso # (Auto) 0.1 Abs Immat Gran (auto) 0.10 H Absolute Neuts (auto) 5.3 Absolute Nucleated RBC 0.000 Nucleated RBC % (auto) 0.0 Sodium 143 Potassium 3.6 Chloride 112 H Carbon Dioxide 25 Anion Gap 10 L BUN 13 Creatinine 0.66 Estim Creat Clear Calc 60.4 Estimated GFR > 60 Fasting Glucose 98 Calcium 9.3 Total Bilirubin 0.4 AST 18 ALT 15 Alkaline Phosphatase 63 Total Protein 6.5 Albumin 3.6 Random Vancomycin 17.6 Preliminary micro results at discharge 11/06/24 21:08 Blood Culture - Preliminary Blood - Venous No growth after 48 hours. 11/06/24 21:08 Blood Culture - Preliminary Blood - Venous No growth after 48 hours. Discharge Plan Discharge Anticipated Discharge Date/Time: 11/10/24 13:12 Patient Disposition: Home Health Service Discharge Diagnosis: Multifocal pneumonia Referrals: Jonna Dillard MD [Primary Care Provider] - 1 Week Discharge Medications: Continued (DME) Ultra-Light Rollator Misc See Rx Instructions .Route Qty: 1 0RF Rx Instructions: As directed metoprolol tartrate 50 mg tablet 25 mg PO BID nystatin 100,000 unit/gram powder 1 appl topical QID PRN (Reason: Rash) ascorbic acid (vitamin C) [Vitamin C] 500 mg Tablet 500 mg PO DAILY clotrimazole-betamethasone 1-0.05 % Cream 1 appl TOPICAL BID PRN (Reason: Rash) vitamin D3-vitamin K2 125-90 mcg Capsule 1 cap PO DAILY acetaminophen 500 mg Tablet 1,000 mg PO TID PRN (Reason: Pain) potassium chloride 20 mEq tablet extended release 20 meq PO DAILY Rx Instructions: take for 4 days than check labs gabapentin 100 mg capsule 200 mg PO BEDTIME ketoconazole 2 % cream 1 appl topical BID PRN (Reason: Rash) cranberry 450 mg Tablet 450 mg PO BID Rx Instructions: administer with meals amlodipine 5 mg tablet 2.5 mg PO DAILY Qty: 30 0RF pantoprazole 40 mg tablet,delayed release (DR/EC) 40 mg PO DAILY@0630 losartan 50 mg tablet 50 mg PO DAILY [id number] Tablet 1 tab PO DAILY Eliquis 5 mg tablet 5 mg PO BID melatonin 3 mg tablet 6 mg PO BEDTIME loperamide 2 mg capsule 4 mg PO QID PRN (Reason: Diarrhea) No Action doxycycline monohydrate 100 mg capsule 100 mg PO BID Qty: 6 0RF Discharge Orders: Discharge Order (Routine); Ordered 11/10/24 Ordered By: Daljit Haq Diet: Advance to usual diet Activity on Discharge: As tolerated Stand Alone Forms: Patient Portal Discharge page Print Language: [place] Care Plan Goals: Continue all medicines as taken prior to hospitalization. You have completed course of antibiotics for pneumonia and need no further antibiotics. Do not restart doxycycline at home Health Concerns: Follow up with your PCP next available Plan of Treatment: Physical therapy we will follow at home to assist with gait training Assessment: See discharge summary
--- NOTE | 2024-11-10 13:21 | W.MHC.F2F ---
Service Date Service Date: 11/10/24 Encounter Date of encounter: 11/10/24 Encounter: Acute hospitalization Reasons for Services Signs and symptoms assessed: Physical therapy for gait training Reason for physical therapy: home safety and mobility, therapeutic exercises and gait/transfer training Homebound: Leaving the home is medically contraindicated at this time without the asist of a device and/or another person due th the listed conditions above and below. Reason homebound: unsteady gait / fall risk, poor balance / fall risk and unable to drive Certification: Based on the above findings, I certify that this patient is confined to the home and needs intermittent long-term care, physical therapy and/or speech therapy, or continues to need occupational therapy. The patient is under my care, and I have initiated the establishment of the plan of care. The patient will be followed by a physician who will periodically review the plan of care. Time Spent With Patient Time: Total time managing care of this patient today ____ minutes.
--- NOTE | 2024-11-10 13:25 | MHC.CM.PN ---
DP: PT HAS BEEN MEDICALLY CLEARED FOR DC HOME WITH NEW [facility] . [facility] UPDATED ON TODAY'S DC. DAUGHTER WILL TRANSPORT
== END 2024-11-10 14:09 | disposition home health service (06) | DRG 871 ==
LOC: HO.ED 21:51 → HO.EDOVER 11-07 00:35 → HO.S3 11-07 13:09
PROVIDERS: Admitting Provider Student in an Organized Health Care Education/Training Program; Emergency Provider Emergency Medicine; PCP Internal Medicine; Visit Provider Hospitalist
DX: A41.9 Sepsis, unspecified organism (principal); J18.9 Pneumonia, unspecified organism; I69.351 Hemiplegia and hemiparesis following cerebral infarction affecting right dominant side; I48.19 Other persistent atrial fibrillation; E87.21 Acute metabolic acidosis; R65.20 Severe sepsis without septic shock; K21.9 Gastro-esophageal reflux disease without esophagitis; I10 Essential (primary) hypertension; F39 Unspecified mood [affective] disorder; E78.2 Mixed hyperlipidemia; Z79.01 Long term (current) use of anticoagulants; Z79.899 Other long term (current) drug therapy
CPT/HCPCS: 36415; 71045; 71250; 74176; 80048; 80053; 80202; 81001; 82565; 83605; 84145; 84484; 85025; 86140; 87040; 87086; 93005; 97116; 97162; 99285; J0131; J0692; J3370; J3371; J7120

== ENCOUNTER → 2024-11-06 21:01 | Outpatient (BNV) | payer MEDICARE, SELFPAY | PROVIDERS: Emergency Provider Emergency Medicine; PCP Internal Medicine; Visit Provider General Practice | DX: J90 Pleural effusion, not elsewhere classified (principal); R91.1 Solitary pulmonary nodule | CPT/HCPCS: 71045; 71250 ==

== ENCOUNTER → 2024-11-06 21:01 | Outpatient (BNV) | payer MEDICARE, SELFPAY | PROVIDERS: Admitting Provider Student in an Organized Health Care Education/Training Program; Emergency Provider Emergency Medicine; PCP Internal Medicine; Visit Provider Internal Medicine Cardiovascular Disease | DX: R94.31 Abnormal electrocardiogram [ECG] [EKG] (principal) | CPT/HCPCS: 93010 ==

== ENCOUNTER 2024-11-07 00:34 | Outpatient (BNV) | payer MEDICARE, SELFPAY | END 2024-11-07 00:48 | PROVIDERS: Admitting Provider Student in an Organized Health Care Education/Training Program; Emergency Provider Emergency Medicine; PCP Internal Medicine; Visit Provider Radiology Neuroradiology | DX: K56.41 Fecal impaction (principal); K44.9 Diaphragmatic hernia without obstruction or gangrene; J90 Pleural effusion, not elsewhere classified | CPT/HCPCS: 74176 ==

== ENCOUNTER → 2024-11-07 00:34 | Outpatient (BNV) | payer MEDICARE, SELFPAY | PROVIDERS: Admitting Provider Student in an Organized Health Care Education/Training Program; Emergency Provider Emergency Medicine; PCP Internal Medicine; Visit Provider Student in an Organized Health Care Education/Training Program | DX: A41.9 Sepsis, unspecified organism (principal); J18.9 Pneumonia, unspecified organism | CPT/HCPCS: 99233; 99239; G0180 ==

== ENCOUNTER 2025-01-09 09:05 | Emergency (ER) | payer MEDICARE, SELFPAY ==
[2025-01-09] VITALS (9 sets, daily range): BP systolic 73–145; BP diastolic 43–64; PULSE 65–90; RESP 16–18; TEMP 36.5–36.9; O2SAT 97–99; BMI 28.3
--- NOTE | 2025-01-09 | ECG_ITS ---
Test Reason : syncope Blood Pressure : */* mmHG Vent. Rate : 79 BPM Atrial Rate : * BPM P-R Int : * ms QRS Dur : 84 ms QT Int : 404 ms P-R-T Axes : * 18 51 degrees QTcB Int : 463 ms Atrial fibrillation Cannot rule out Anterior infarct (cited on or before 02-Nov-2024) Abnormal ECG When compared with ECG of 06-Nov-2024 21:59, T wave inversion no longer evident in Inferior leads T wave inversion no longer evident in Lateral leads Referred By: Zamzam Thompson Electronically Signed By: NIRAV VIZCARRA MD
--- NOTE | ~2025-01-09 | CT_ITS ---
EXAMINATION: CT HEAD WITHOUT IV CONTRAST HISTORY: Syncope history of being on blood thinners COVID +. TECHNIQUE: Unenhanced helical CT of the head was performed per standard departmental protocol. Coronal and sagittal reformats of the head were also evaluated. One or more of the following techniques was used for dose reduction: Automated exposure control, adjustment of the mA and/or kV according to patient size, use of iterative reconstruction technique. DLP: 1373 mGy-cm COMPARISON: Comparison is made with the prior examination dated 11/02/2024. FINDINGS: BRAIN: There is diffuse prominence of the ventricular system and cortical sulci, consistent with atrophy. Periventricular and subcortical white matter hypodensities are noted which are nonspecific, but often seen in the setting of small vessel ischemic disease. Again seen is encephalomalacia in the left frontal and temporal lobes consistent with an old infarct. There is no mass effect or midline shift. No intra- or extra-axial fluid collections are identified. SINUSES: The visualized paranasal sinuses are clear. The mastoid air cells and middle ear cavities are well pneumatized. ORBITS: The visualized orbits are unremarkable. BONES/SOFT TISSUES: The extracranial soft tissues are unremarkable. The calvarium is intact. No suspicious lytic or sclerotic lesions. CT/CT head/brain wo IV con IMPRESSION: No acute intracranial abnormality. Electronically signed by: Kash Gates MD 01/09/2025 12:40 PM EDT
--- NOTE | ~2025-01-09 | CT_ITS ---
EXAMINATION: CT CERVICAL SPINE WITHOUT IV CONTRAST HISTORY: Fall syncope. TECHNIQUE: Helical CT of the cervical spine was performed per standard departmental protocol. Coronal and sagittal reformatted images were also evaluated. One or more of the following techniques was used for dose reduction: Automated exposure control, adjustment of the mA and/or kV according to patient size, use of iterative reconstruction technique. DLP: 356 mGy-cm COMPARISON: There are no prior studies for comparison. FINDINGS: CERVICAL SPINE: The vertebral bodies maintain normal height and alignment without evidence of fracture or subluxation. There is mild degenerative disc disease with disc space narrowing and osteophyte formation. Evaluation for disc pathology is limited by lack of intrathecal contrast material, however. SINUSES: The visualized paranasal sinuses, mastoid air cells and middle ear cavities are unremarkable. LUNG APICES: The visualized lung apices are clear. SOFT TISSUES: There is calcification of the internal carotid arteries. There is a 1.1 x 0.6 cm nodule of the right thyroid lobe. CT/CT cervical spine wo IV con IMPRESSION: No evidence of fracture or malalignment of the cervical spine. Electronically signed by: Kash Gates MD 01/09/2025 12:44 PM EDT
--- NOTE | 2025-01-09 09:30 | PC.NURSE ---
biba from home s/p vasovagal episode that lasted 5 minutes. witnessed by son. pt reports URI sx x yesterday. went to have BM this am. pt started c/o LLE pain radiating to knee while having a BM (hx neuropathy) - where she then had a syncopal episode. no trauma noted. -headstrike, +loc, +thinners (eloquis). hx afib. upon ED arrival - a&ox4. vss and up to date. nsr on the rn cardiac rehab. pt currently denies any dizziness/lightheadedness upon ED arrival. 18gIV in the right wrist via EMS - patent/intact. pt received 500cc NS via EMS. pt currently on RA w/o difficulty. no sob/wob noted. respirations even/unlabored. plan of care ongoing. call aguilar placed within reach.
--- NOTE | 2025-01-09 09:56 | ED_ITS ---
HPI - Syncope General Chief Complaint: Syncope Stated Complaint: SYNCOPAL EPISODE Time Seen by Provider: 01/09/25 09:19 History of Present Illness HPI narrative: Patient is an 84-year-old female with a history of atrial fibrillation currently on Eliquis. Family noted increasing coughing upper respiratory symptoms ongoing for the last 2 days. There has been a bug that is been going through the house. Patient is vaccinated for COVID in the past. Patient was going to the bathroom on returning patient felt very lightheaded almost passed out denies hitting her head denies any fever chills. Is still coughing. Denies noticing any blood in the stool. Denies any abdominal pain. Symptomatically the dizziness has improved. Patient also has a history of back pain. Pain going down the leg. Has a history of the same. Not getting any better. Patient denies any chest pain. Denies any abdominal pain. Related Data Home Medications ?Medication ?Instructions ?Recorded ?Confirmed losartan 50 mg tablet 50 mg PO DAILY 10/01/23 11/07/24 uhsulejffula-rfttiqwv-pdafly tablet 1 tab PO DAILY 10/01/23 11/07/24 pantoprazole 40 mg tablet,delayed 40 mg PO DAILY@0630 10/01/23 11/07/24 release apixaban 5 mg tablet (Eliquis) 5 mg PO BID 10/10/23 11/07/24 melatonin 3 mg tablet 6 mg PO BEDTIME Sleep 10/10/23 11/07/24 metoprolol tartrate 50 mg tablet 25 mg PO BID 10/21/23 11/07/24 nystatin 100,000 unit/gram topical 1 appl topical QID PRN Rash 10/21/23 11/07/24 powder cranberry fruit 450 mg tablet 450 mg PO BID 12/08/23 11/07/24 (cranberry) ketoconazole 2 % topical cream 1 appl topical BID PRN Rash 12/08/23 11/07/24 loperamide 2 mg capsule 4 mg PO QID PRN Diarrhea 01/21/24 11/07/24 acetaminophen 500 mg tablet 1,000 mg PO TID PRN Pain 11/02/24 11/07/24 ascorbic acid (vitamin C) 500 mg 500 mg PO DAILY 11/02/24 11/07/24 tablet (Vitamin C) clotrimazole-betamethasone 1 1 appl topical BID PRN Rash 11/02/24 11/07/24 %-0.05 % topical cream potassium chloride 20 mEq 20 meq PO DAILY 11/02/24 11/07/24 tablet,extended release vitamin D3 125 mcg (5,000 1 cap PO DAILY 11/02/24 11/07/24 unit)-vitamin K2 90 mcg capsule gabapentin 100 mg capsule 200 mg PO BEDTIME 11/07/24 11/07/24 Previous Rx's ?Medication ?Instructions ?Recorded walker (Ultra-Light Rollator [facility] [place]) #1 ea 08/22/21 amlodipine 5 mg tablet 2.5 mg (1/2 x 5 mg) PO DAILY #30 12/11/23 tabs doxycycline monohydrate 100 mg 100 mg PO BID #6 caps 11/04/24 capsule Allergies Allergy/AdvReac Type Severity Reaction Status Date / Time codeine Allergy Unknown rash Verified 01/09/25 09:18 Penicillins AdvReac Hives Verified 01/09/25 09:18 terbinafine [From Lamisil] AdvReac Hives Verified 01/09/25 09:18 Review of Systems 2 Review of Systems: Positive dizziness near syncopal episode Yes all other systems are reviewed and are negative PMFSH Past Medical History Attestation statement: The following information was validated with the patient. Medical History Multifocal pneumonia Atrial fibrillation Pyuria Episode of syncope Urinary tract infection Syncope, vasovagal Right hemiparesis HLD (hyperlipidemia) Atrial fibrillation History of malignant melanoma History of basal cell carcinoma History of dysplastic nevus Degenerative joint disease (DJD) of hip Low back pain radiating to left lower extremity History of squamous cell carcinoma Venous insufficiency (chronic) (peripheral) Diarrhea Hypertension Surgical History H/O breast biopsy Hx of colonoscopy Hx of cholecystectomy Hx of appendectomy Family History Family History Father Throat cancer Mother Kidney failure Social History Social History Household Members: Family Housing: House Do you presently have visiting nurse or other home services: Yes Alcohol intake: former Comment: pt aware she needs to ask for help before getting up Patient Tobacco Use Status: Never used Tobacco Advance Directives: Yes Advance Directives on File: Yes Advance Directives Date on File: 11/02/23 Do you have a plan to hurt others: No Plan service: No Physical Exam 2 Vital Signs: Vital Signs: Last Vital Signs Temp 98.5 F 01/09/25 13:01 Pulse 80 01/09/25 13:01 Resp 16 01/09/25 13:01 BP 129/61 01/09/25 13:01 Pulse Ox 98 01/09/25 13:01 O2 Del Method Room Air 01/09/25 13:01 BMI result Body Mass Index 28.3 Appearance: Alert. Oriented X3. No acute distress. Eyes: Pupils equal, round and reactive to light. ENT: Pharynx normal. Neck: Normal inspection. Neck supple. No lymph nodes noted. No crepitus CVS: Irregularly irregular Respiratory: No respiratory distress. Breath sounds normal. No Wheezing. No rales Abdomen: Soft and nontender. No rigidity. No distention. good BS x4 Skin: Skin warm and dry. Normal skin color. Normal skin turgor. Extremities: No lower extremity edema. Neurovascular intact to all extremities. No Lacerations. No Rash Neuro: Oriented X 3. No motor deficit. No sensory deficit. Moving all extermities. No slurred speech Medications Administered Discontinued Medications Generic Name Dose Route Start Last Admin Trade Name Freq PRN Reason Stop Dose Admin Sodium Chloride 1,000 mls @ 999 mls/hr 01/09/25 12:30 01/09/25 12:59 Ns IV 01/09/25 13:30 999 mls/hr .Q1H1M [facility] [place] Administration Medical Decision Making Medical Decision Making MDM Narrative: Positive coughing congestion upper respiratory symptoms that is been ongoing. Patient's COVID test came back positive previously vaccinated for multiple medications. Patient's symptoms greater than 5 days. At this time felt risks benefit of Paxlovid not warranted. Patient a multitude of medication including Eliquis for atrial fibrillation. Had a lightheadedness episode likely vasovagal. CT scan of the head by my interpretation was grossly negative. I reviewed radiology's reading of the CT head cervical spine was grossly negative for any acute evidence of fracture no bleed. My interpretation patient's EKG showed a atrial fibrillation pattern heart rate is 80 QRS is normal QTC is normal there is no acute ST segment elevation. Differential Diagnosis Differential Diagnoses: The differential diagnosis associated with the presentation includes Arrhythmia, dehydration, pneumonia, COVID, flu, RSV, vasovagal Admission/Observation Consideration of admission/observation: Escalation of care including admission/observation considered Lab Data MDM Lab Attestation statement: I reviewed the patient's lab results. 01/09/25 11:51 01/09/25 10:35 Labs: Lab Results 01/09/25 01/09/25 Range/Units 10:35 11:51 WBC 11.8 H (4.8-10.8) X10*3/uL RBC 4.47 (4.20-5.50) X10*6/uL Hgb 13.7 (12.0-16.0) g/dl Hct 41.4 (37.0-47.0) % MCV 92.6 (80.0-98.0) fL MCH 30.6 (27.0-33.0) pg MCHC 33.1 (31.0-35.0) g/dl RDW 13.4 (11.0-16.0) % Plt Count 220 (160-400) X10*3/uL MPV 10.1 (9.4-12.3) fL Immature Gran % (Auto) 0.4 (0.0-0.4) % Neut % (Auto) 80.0 H (45-73) % Lymph % (Auto) 8.6 L (20-40) % Avery % (Auto) 10.1 (2-11) % Eos % (Auto) 0.5 (0-4) % Baso % (Auto) 0.4 (0-2) % Lymph # (Auto) 1.0 L (1.2-4.9) X10*3/uL Avery # (Auto) 1.2 (0.1-1.2) X10*3/uL Eos # (Auto) 0.1 (0.0-0.4) X10*3/uL Baso # (Auto) 0.1 (0.0-0.2) X10*3/uL Abs Immat Gran (auto) 0.05 H (0.00-0.03) X10*3/uL Absolute Neuts (auto) 9.4 H (2.0-8.3) x10*3/uL Absolute Nucleated RBC 0.000 (0.0-0.012) X10*3/uL Nucleated RBC % (auto) 0.0 (0.0-0.2) /100WBC PT 13.1 H D (10.9-12.4) SEC INR 1.1 (0.9-1.1) APTT 29.9 (26.0-36.8) SEC Sodium 139 (135-145) mmol/L Potassium 4.1 (3.3-5.1) mmol/L Chloride 109 H (96-108) mmol/L Carbon Dioxide 20 L (22-29) mmol/L Anion Gap 14 (12-20) BUN 21 H (9-16) mg/dL Creatinine 0.87 (0.5-1.4) mg/dL Estim Creat Clear Calc 47.7 Estimated GFR > 60 Random Glucose 107 (60-115) mg/dL Calcium 9.5 (8.4-10.2) mg/dL Magnesium 2.1 (1.6-2.6) mg/dL Total Bilirubin 0.5 (0.0-1.0) mg/dL Direct Bilirubin 0.2 (0.0-0.5) mg/dL AST 25 (5-31) U/L ALT 14 (0-31) U/L Alkaline Phosphatase 91 (39-117) U/L Troponin I High Sens 7.4 (<3.5-17.0) ng/L Total Protein 7.2 (6.5-8.0) g/dL Albumin 4.1 (3.5-5.0) g/dL Influenza Type A (PCR) NEGATIVE (Negative) Influenza Type B (PCR) NEGATIVE (Negative) RSV RNA Qual (PCR) NEGATIVE (Negative) SARS-CoV-2 RNA (RT-PCR) POSITIVE A (Negative) Independent Interpretation I performed an independent interpretation of an: EKG (Atrial fibrillation heart rate is 70 QRS QTC normal.) and CT Scan (CT head grossly negative) Radiology Impression Discussion of test interpretation with radiology: I have reviewed the radiologist's reading. Independent Historian Clinical information obtained from an independent historian. History obtained from or confirmed by: Spouse External Record Review External record reviewed: Inpatient record Chronic Conditions Patient?s care impacted by: Hypertension Atrial fibrillation Social Determinants Patient?s care significantly limited by Social Determinants of Health including: Problems related to primary support group Discharge Plan Discharge Clinical Impression: Vasovagal episode, Dehydration, COVID Patient Disposition: Home, Self-Care Instructions: COVID-19 (Coronavirus Disease 2019) (ED), Syncope (ED), Dehydration (ED) Prescriptions: No Action (DME) Ultra-Light Rollator Misc See Rx Instructions .Route Qty: 1 0RF Rx Instructions: As directed metoprolol tartrate 50 mg tablet 25 mg PO BID nystatin 100,000 unit/gram powder 1 appl topical QID PRN (Reason: Rash) ascorbic acid (vitamin C) [Vitamin C] 500 mg Tablet 500 mg PO DAILY clotrimazole-betamethasone 1-0.05 % Cream 1 appl TOPICAL BID PRN (Reason: Rash) vitamin D3-vitamin K2 125-90 mcg Capsule 1 cap PO DAILY acetaminophen 500 mg Tablet 1,000 mg PO TID PRN (Reason: Pain) potassium chloride 20 mEq tablet extended release 20 meq PO DAILY Rx Instructions: take for 4 days than check labs doxycycline monohydrate 100 mg capsule 100 mg PO BID Qty: 6 0RF gabapentin 100 mg capsule 200 mg PO BEDTIME ketoconazole 2 % cream 1 appl topical BID PRN (Reason: Rash) cranberry 450 mg Tablet 450 mg PO BID Rx Instructions: administer with meals amlodipine 5 mg tablet 2.5 mg PO DAILY Qty: 30 0RF pantoprazole 40 mg tablet,delayed release (DR/EC) 40 mg PO DAILY@0630 losartan 50 mg tablet 50 mg PO DAILY fuiabfujuayt-niazqxau-klemfc Tablet 1 tab PO DAILY Eliquis 5 mg tablet 5 mg PO BID melatonin 3 mg tablet 6 mg PO BEDTIME loperamide 2 mg capsule 4 mg PO QID PRN (Reason: Diarrhea) Referrals: Jnona Dillard MD [Primary Care Provider] - 01/11/25 Print Language: Greenlandic
--- NOTE | 2025-01-09 10:36 | PC.NURSE ---
delay in lab draw d/t difficult stick.
[2025-01-09 10:57] LABS: Alanine Aminotransferase 14 U/L (0-31); Albumin Level 4.1 g/dL (3.5-5.0); Alkaline Phosphatase 91 U/L (39-117); Anion Gap 14 (12-20); Aspartate Amino Transferase 25 U/L (5-31); Bilirubin Direct 0.2 mg/dL (0.0-0.5); Bilirubin Total 0.5 mg/dL (0.0-1.0); Blood Urea Nitrogen 21 mg/dL (9-16); Calcium 9.5 mg/dL (8.4-10.2); Carbon Dioxide 20 mmol/L (22-29); Chloride 109 mmol/L (96-108); Creatinine Clr Calc Pharmacy 47.7; Estimated Glomerular Filt Rate > 60; Glucose Random 107 mg/dL (60-115); Magnesium 2.1 mg/dL (1.6-2.6); Potassium 4.1 mmol/L (3.3-5.1); Sodium 139 mmol/L (135-145); Total Protein 7.2 g/dL (6.5-8.0)
--- NOTE | 2025-01-09 11:00 | PC.NURSE ---
orthostatic vs performed by tech. pt tolerated well. denies any dizziness/lightheadedness w/ position change/exertion. pt repositioned back into bed to comfort. respirations remain even/unlabored. plan of care ongoing. call aguilar placed within reach.
[2025-01-09 11:03] LABS: Troponin-I High Sensitivity 7.4 ng/L (<3.5-17.0)
[2025-01-09 11:25] LABS: Influenza A PCR NEGATIVE (Negative); Influenza B PCR NEGATIVE (Negative); Resp Syncy Virus RNA Qual PCR NEGATIVE (Negative); SARS COV2 PCR INHOUSE POSITIVE (Negative)
[2025-01-09 11:57] LABS: MANUAL DIFF FLAG NO
[2025-01-09 12:00] LABS: Basophils Absolute Auto 0.1 X10*3/uL (0.0-0.2); Basophils Percent Auto 0.4 % (0-2); Eosinophils Absolute Auto 0.1 X10*3/uL (0.0-0.4); Eosinophils Percent Auto 0.5 % (0-4); Hematocrit 41.4 % (37.0-47.0); Hemoglobin 13.7 g/dl (12.0-16.0); Imm Gran Abs Auto 0.05 X10*3/uL (0.00-0.03); Imm Gran Pct Auto 0.4 % (0.0-0.4); Lymphocytes Percent Auto 8.6 % (20-40); Mean Corpuscular HGB Conc 33.1 g/dl (31.0-35.0); Mean Corpuscular Hemoglobin 30.6 pg (27.0-33.0); Mean Corpuscular Volume 92.6 fL (80.0-98.0); Mean Platelet Volume 10.1 fL (9.4-12.3); Monocytes Absolute Auto 1.2 X10*3/uL (0.1-1.2); Monocytes Percent Auto 10.1 % (2-11); Neutrophils Absolute Auto 9.4 x10*3/uL (2.0-8.3); Platelet Count 220 X10*3/uL (160-400); Red Blood Count 4.47 X10*6/uL (4.20-5.50); Red Cell Distribution Width 13.4 % (11.0-16.0); White Blood Count 11.8 X10*3/uL (4.8-10.8)
--- NOTE | 2025-01-09 12:01 | PC.NURSE ---
labs hemolyzed. redrawn/sent to lab.
[2025-01-09 12:26] LABS: INTERNATIONAL NORM RATIO 1.1 (0.9-1.1); Prothrombin Time 13.1 SEC (10.9-12.4)
[2025-01-09 12:30] LABS: Partial Thromboplastin Time 29.9 SEC (26.0-36.8)
[2025-01-09] MEDS: 0.9 % Sodium Chloride 1,000 ML 999 ML IV (12:59)
== END 2025-01-09 15:24 | disposition home or self-care (01) ==
PROVIDERS: Emergency Provider Emergency Medicine Emergency Medical Services; PCP Internal Medicine
DX: U07.1 COVID-19 (principal); E86.0 Dehydration; R55 Syncope and collapse; R05.9 Cough, unspecified; I48.91 Unspecified atrial fibrillation; I10 Essential (primary) hypertension; E78.5 Hyperlipidemia, unspecified; Z79.01 Long term (current) use of anticoagulants; Z79.899 Other long term (current) drug therapy
CPT/HCPCS: 0241U; 70450; 72125; 80053; 82248; 83735; 84484; 85025; 85610; 85730; 93005; 96360; 99284; 99285

== ENCOUNTER → 2025-01-09 09:46 | Outpatient (BNV) | payer MEDICARE, SELFPAY | PROVIDERS: Emergency Provider Emergency Medicine Emergency Medical Services; PCP Internal Medicine; Visit Provider Internal Medicine Cardiovascular Disease | DX: I48.91 Unspecified atrial fibrillation (principal) | CPT/HCPCS: 93010 ==

== ENCOUNTER → 2025-01-09 11:40 | Outpatient (BNV) | payer MEDICARE, SELFPAY | PROVIDERS: Emergency Provider Emergency Medicine Emergency Medical Services; PCP Internal Medicine; Visit Provider Radiology Diagnostic Radiology | DX: R55 Syncope and collapse (principal) | CPT/HCPCS: 70450; 72125 ==

== ENCOUNTER 2025-01-23 13:40 | Outpatient (AMB) | payer MEDICARE, SELFPAY ==
--- NOTE | 2025-01-23 13:50 | A.OFFVIS_ITS ---
Vital Signs 01/23/25 14:20 Height 5 ft 3 in Weight 159 lb BMI 28.2 BP 128/84 Blood Pressure Location Rt brachial Position Sitting Intake Visit Reasons: Follow Up Intake Note: Patient presents for follow up EMG and nerve conduction study on 08/30/24 Allergies codeine Allergy (Unknown, Verified 01/23/25 14:21) rash Penicillins Adverse Reaction (Verified 01/23/25 14:21) Hives terbinafine [From Lamisil] Adverse Reaction (Verified 01/23/25 14:21) Hives HPI Comments Details: History of Present Illness The patient is an 84-year-old female presenting with a history of left MCA str sully and bilateral lower extremity paresthesia. Patient is accompanied by her son. Recent hospital admission for dehydration-related syncope with positive COVID- 19, resolved per follow-up. she also had a hospitalization in October for lactic acidosis. Reports paresthesias of the bilateral, left more so than right, lower extremity and chronic foot and leg pain. typically the feet feel cold and prickly- and this can move up the left leg. She does not like to wear sliver type socks, feels they cause too much compression. She denies lower extremity weakness or swelling at this time. Continues on gabapentin 200 mg nightly and OTC supplements for nerve health- which include daily zinc supplements- helpss some. Previously has not tolerated gabapentin 300 mg, caused a.m. drowsiness. Applying Aspercreme or wrapping her feet at night in the blankets also helps some. She denies any other syncopal events. Review of Systems - Neurological: Denies further occurrences of syncope other than in the bathroom. Reports pain in her feet and legs, and cold sensitivity in feet. - Cardiovascular: Denies swelling in legs. - Dermatological: Denies persistent skin issues. - Musculoskeletal: Reports chronic pain in the feet that sometimes moves to the legs. - Endocrine: Reports supplement with D3 and zinc. - Gastrointestinal: Reports bowel movement normalizing. - General: Reports using supplements for nerve health. Results - Tests: CT head last week showed no acute intracranial abnormality. - BLE EMG/ NCS , 08/30/2024: sensorimotor peripheral neuropathy. [facility] Medical History (Updated 01/23/25 @ 14:49 by PAIGE Glass) Vitamin D deficiency Multifocal pneumonia Atrial fibrillation Pyuria Episode of syncope Urinary tract infection Syncope, vasovagal Right hemiparesis HLD (hyperlipidemia) Atrial fibrillation History of malignant melanoma History of basal cell carcinoma History of dysplastic nevus Degenerative joint disease (DJD) of hip Low back pain radiating to left lower extremity History of squamous cell carcinoma Venous insufficiency (chronic) (peripheral) Diarrhea Hypertension Surgical History H/O breast biopsy Hx of colonoscopy Hx of cholecystectomy Hx of appendectomy Family History Father Throat cancer Mother Kidney failure Social History Household Members: Family Housing: House Do you presently have visiting nurse or other home services: Yes Alcohol intake: current Alcohol intake frequency: 0-2 drinks per day Alcohol type: wine Comment: pt aware she needs to ask for help before getting up Patient Tobacco Use Status: Never used Tobacco Advance Directives Date on File: 11/02/23 service: No Physical Exam Vital Signs: Last Vital Signs BP 128/84 01/23/25 14:20 BMI result Body Mass Index 28.2 Const General: cooperative and no acute distress Resp Effort & Inspection: normal respiratory effort and able to speak in complete sentences Neuro Other: Alert & Oriented w/ STM lapses. Right lower facial, RUE weakness. Mild dysarthria- speech clear Stands ok, steady gait w/ walker. Psych Appearance: grossly normal Mental Status: mental status grossly normal Affect: normal affect Attitude: cooperative Assessment & Plan Assessment & Plan (1) Sensorimotor neuropathy: Code(s): G62.9 - Polyneuropathy, unspecified Category: Medical (2) History of ischemic left MCA stroke: Comment: 08/10/23 Code(s): Z86.73 - Personal history of transient ischemic attack (TIA), and cerebral infarction without residual deficits Category: Medical (3) Paresthesia of both lower extremities: Code(s): R20.2 - Paresthesia of skin Category: Medical Plan Discussion Notes During the visit, I explained the results of recent testing and clarified the significance of neuropathy findings in the legs and the implications of resolved COVID-19 following a syncope episode. We discussed management options for her chronic lower extremity pain, and ordering lab work to assess for potential vitamin deficiencies or alternate underlying etiologies, noting the possible benefit of adjunct therapies. I assured her that the plan addresses maintaining her nutritional status and detailed ongoing monitoring strategies for potential deficiencies. We agreed upon the continuation of current pharmaceutical management, barring significant side effects. May continue OTC Aspercreme application to her feet. I discussed risk factors for possible syncope in setting of recent positive COVID 19 infection, AFib, venous insufficiency, prone to loose stool/diarrhea. encouraged to continue to optimize her cardiovascular risk factors in follow-up with cardiology as scheduled. Advised that when not feeling well, to make sure she rests, takes adequate fluids, and alerts her family of any changes in her symptoms. Patient was informed and verbally consented to the use of an ambient scribe for clinic note documentation during this visit. Plan and Patient Instructions For left MCA CVA: - Continue optimized CV risk reduction strategies- ASA, Eliquis, statin, amlodipine, losartan. - Follow up with cardiology and pulmonology as scheduled - Diet should include balanced nutrition with current supplements. - continue to walk with a cane - Future considerations: sleep study. For bilateral lower extremity, left more so than right, pain, paresthesias and coolness: - Reviewed interval EMG/NCS results which showed sensory motor neuropathy. - We will check labs for common underlying etiologies of neuropathy including zinc/copper levels due to chronic think intake - Continue Gabapentin 200mg qhs. - Ensure adequate fluid intake daily; aim for several wet diapers. - Use creams and supplements as discussed for foot pain and nerve health. - Report any new or worsening symptoms immediately. Follow-up upon review of above and in 9 months or sooner in clinic. Orders: Orders Vitamin B1 Today D64.9 - Anemia, unspecified, E55.9 - Vitamin D deficiency, unspecified, G62.9 - Polyneuropathy, unspecified, R55 - Syncope and collapse Vitamin B12 and Folate Today D64.9 - Anemia, unspecified, E55.9 - Vitamin D deficiency, unspecified, G62.9 - Polyneuropathy, unspecified, R55 - Syncope and collapse Vitamin B3 (Niacin) Today D64.9 - Anemia, unspecified, E55.9 - Vitamin D defic iency, unspecified, G62.9 - Polyneuropathy, unspecified, R55 - Syncope and collapse Vitamin B2 (Riboflavin) Today D64.9 - Anemia, unspecified, E55.9 - Vitamin D deficiency, unspecified, G62.9 - Polyneuropathy, unspecified, R55 - Syncope and collapse Vitamin B5 (Pantothenic Acid) Today D64.9 - Anemia, unspecified, E55.9 - Vitamin D deficiency, unspecified, G62.9 - Polyneuropathy, unspecified, R55 - Syncope and collapse Protein Electrophoresis, Serum Today D64.9 - Anemia, unspecified, E55.9 - Vitamin D deficiency, unspecified, G62.9 - Polyneuropathy, unspecified, R55 - Syncope and collapse TSH reflex Free T4 Today D64.9 - Anemia, unspecified, E55.9 - Vitamin D deficiency, unspecified, G62.9 - Polyneuropathy, unspecified, R55 - Syncope and collapse Complete Blood Count Auto Diff Today D64.9 - Anemia, unspecified, E55.9 - Vitamin D deficiency, unspecified, G62.9 - Polyneuropathy, unspecified, R55 - Syncope and collapse Comprehensive Met. Panel Today D64.9 - Anemia, unspecified, E55.9 - Vitamin D deficiency, unspecified, G62.9 - Polyneuropathy, unspecified, R55 - Syncope and collapse Erythrocyte Sedimentation Rate Today D64.9 - Anemia, unspecified, E55.9 - Vitamin D deficiency, unspecified, G62.9 - Polyneuropathy, unspecified, R55 - Syncope and collapse Rheumatoid Factor Today D64.9 - Anemia, unspecified, E55.9 - Vitamin D deficiency, unspecified, G62.9 - Polyneuropathy, unspecified, R55 - Syncope and collapse Magnesium Today D64.9 - Anemia, unspecified, G62.9 - Polyneuropathy, unspecified, R25.2 - Cramp and spasm, R55 - Syncope and collapse Vitamin B6 Today D64.9 - Anemia, unspecified, E55.9 - Vitamin D deficiency, unspecified, G62.9 - Polyneuropathy, unspecified, R55 - Syncope and collapse Vitamin D 25-OH (D2 and D3) Today D64.9 - Anemia, unspecified, E55.9 - Vitamin D deficiency, unspecified, G62.9 - Polyneuropathy, unspecified, R55 - Syncope and collapse CRP High Sensitivity Today D64.9 - Anemia, unspecified, E55.9 - Vitamin D deficiency, unspecified, G62.9 - Polyneuropathy, unspecified, R55 - Syncope and collapse Methylmalonic Acid Today D64.9 - Anemia, unspecified, E55.9 - Vitamin D deficiency, unspecified, G62.9 - Polyneuropathy, unspecified, R55 - Syncope and collapse Homocysteine Today D64.9 - Anemia, unspecified, E55.9 - Vitamin D deficiency, unspecified, G62.9 - Polyneuropathy, unspecified, R55 - Syncope and collapse KEVNI Reflex Titer and Pattern Today D64.9 - Anemia, unspecified, E55.9 - Vitamin D deficiency, unspecified, G62.9 - Polyneuropathy, unspecified, R55 - Syncope and collapse Zinc Today D64.9 - Anemia, unspecified, G62.9 - Polyneuropathy, unspecified, R25.2 - Cramp and spasm, R55 - Syncope and collapse Copper, serum Today D64.9 - Anemia, unspecified, G62.9 - Polyneuropathy, uns pecified, R25.2 - Cramp and spasm, R55 - Syncope and collapse Coding Level of Care Code Est Pt Level 4 (07515) Diagnoses Sensorimotor neuropathy G62.9 History of ischemic left MCA stroke Z86.73 Paresthesia of both lower extremities R20.2
[2025-01-23 14:20] VITALS: BP 128/84; BMI 28.2
--- OUTSIDE RECORDS SUMMARY | 2025-01-23 16:39 | XMS_ITS ---
Author Organization [facility] Address [address] [place] [id number] Care Team Providers Care Medicaid Business Analyst Name Role Phone Jonna Childress Primary Care Provider Unava ilable Mari Chowdhury Unavailable [phone] Mcelroy Encounters Encounter Location Date Provider Diagnosis [address] [phone] 07/17/2024 Mari Chowdhury Plan Of Treatment Next Appt Details Provider Name:Mari Anna Chowdhury , 05/10/2025 11:30:00 AM, [address] [place] [address], [phone], Progress Notes * Cande MAR[birth year]DOB:[birth year] (84 yo F)Acc No.[id number]:07/17/2024 Progress Note Patient:?Karena MARXhleen Provider:?Mari Chowdhury DPM :1940???Age:83 Y???Sex:Female D ate:07/17/2024 Address:[address] [place] [phone] Pcp:Jonna Childress Subjective: * Chief Complaints: * ???1. Dr Mcelroy. * Medical History:? Objective: * Vitals:? Assessment: Plan: * Treatment: * Images: * The named appointment provid er may or may not be the originator of this progress note, and it is not deemed complete until electronically signed by the appointment provider. Sign off status: Pending * Provider:Olimpia Chowdhury DPM Date:?2023 Generated for Autumn patel/Samuel/Pelon on:?01/23/2025 04:39 PM EDT
--- OUTSIDE RECORDS SUMMARY | 2025-01-23 16:39 | XMS_ITS | Encounter Summary ---
Author Organization [facility] Address [address] [place] [address] Care Team Providers Care Induction Coordination Power Engineer Name Role Phone Jonna Nieto MD Primary Care Prov ider Reason for Visit * Reason Onset Date Comments orders 01/22/2025 Encounter Details Date Type Department Care Team (Late st Contact Info) Description 01/22/2025 Telephone Adult Medicine [address] [phone] Jonna Nieto MD [address] [place] [phone] orders Social History Tobacco Use Types Packs/Day Years [...] on file documented as of this encounter Progress Notes * Gertrude Lara - 01/22/2025 12:34 PM EDT Kady from central scheduling is calling In regards to the [facility] Looking for a call back from office Please advise documented in this encounter Plan of Treatment Upcoming Encounters Date Type Department Care Team (Late st Contact Info) Description 02/16/2025 10:50 AM EDT Consult Pulmonolgy - [place] [address] [place] [address] Rosario Uribe NP [address] [place] [address] documented as of this encounter Visit Diagnoses Not on filedocumented in this encounter Additional Health Concerns Assessment Noted Time A fall risk assessment has been complete d for the patient 10/25/2024 2:40 PM EST documented as of this encounter Care Teams Induction Coordination Power Engineer Relationship Specialty Start Date End Date Jonna Nieto MD [address] [place] [phone] PCP - General Internal Medicine 07/13/22 documented as of this encounter
--- OUTSIDE RECORDS SUMMARY | 2025-01-23 16:39 | XMS_ITS | Encounter Summary ---
Author Organization [facility] Address [address] [place] [address] Care Team Providers Care Certified Welding Inspector Name Role Phone Jonna Nieto MD Primary Care Prov ider Encounter Details Date Type Department Care Team (Late st Contact Info) Description 08/08/2024 4:47 PM EDT Hospital Encounter TH HISTORIC ENCOUNTERS EASTERN CONVERSION ONLY Jennifer Willingham, [address] [place] [address] Social History Tobacco Use Types Packs/Day Years [...] care for your loved ones. For example, director of early childhood or elderly care for an older adult? [...] 02/16/2025 10:50 AM EDT Consult Pulmonolgy - [place] [address] [place] [phone] Rosario Uribe NP [address] [place] [address] documented as of this encounter Visit Diagnoses Not on filedocumented in this encounter Care Teams Certified Welding Inspector Relationship Specialty Start Date End Date Jonna Nieto MD [address] [place] [phone] PCP - General Internal Medicine 07/13/22 documented as of this encounter
--- OUTSIDE RECORDS SUMMARY | 2025-01-23 16:39 | XMS_ITS ---
Author Organization [facility] Address [address] [place] [address] Care Team Providers Care Superintendent Compressor Stations Name Role Phone Jonna Childress Primary Care Provider Unamarcia ilable Black, Mari Unavailable [phone] Allergies Allergen (clinical drug ingredient) Drug/Non Drug Allergy documented on EMR Reaction Allergy Type Onset Date Status amoxicillin Amoxicillin hives Drug Allergy Act shira Lamisil rash Drug Allergy Active acetaminophen / oxycodone Percocet Unknown Drug Allergy Active REASON FOR VISIT Pcp-12/12, Painful Nail(s) aggrevated by shoes and causing difficulty standing/walking., Foot pain Medications Medication SIG (Take, Route, Frequency, Duration) Notes Start Date End Date Status Metamucil Not-Taking Nifediac CC 60 MG Orally No t-Taking Ciclopirox Olamine 0.77% external Apply to effected areas twice a day for 30 days 06/17/2015 Not-Taking Colestipol HCl Not-T aking Ciclopirox Olamine N ot-Taking Clotrimazole-Betamethasone 1-0.05 % 1 application Externally Twice a day for 30 days 12/10/2022 Not-Taking Physical Therapy . . . 2-3x/week for 3- 4 weeks 03/08/2023 Not-Taking Loprox 0.77 % 1 application Externally Twice a day 05/05/2021 Not-Takin g immodium Not-Taking NIFEdipine 60 MG Orally Not -Taking Fiber Not-Taking Lotrimin AF Not-Taki ng Atenolol 100 MG Orally Not- Taking Ciclopirox 0.77 % 1 application to affected area Externally Twice a day for 30 days 03/29/2017 Not-Taking Mometasone Furoate N ot-Taking Atorvastatin Calcium 80 MG 1 tablet Oral ly Once a day for 30 day(s) Not-Taking Centrum Silver Not-T aking traZODone HCl 50 MG 1 tablet at bedtime as needed Orally Once a day for 30 day(s) Not-Taking Sulfamethoxazole-Trimethop rim 800-160 MG 1 tablet Orally Three times a Week for 10 day(s) Not-Taking Sulfamethoxazole-Trimethop rim 800-160 MG 1 tablet Orally Three times a Week for 10 day(s) Not-Taking Probiotic Active Losartan Potassium 50 MG 1 tablet Orally Once a day Active Tylenol prn Active Metoprolol Succinate ER 50 MG 1 tablet Orally Once a day Active Multivitamin Not-Edson ing amLODIPine Besylate 5 MG 1 tablet Orally Once a day for 30 day(s) Active Hydrocortisone PRN Activ e Ketoconazole 2 % 1 application Externally Once a day for 14 day(s) PNR Active Cranberry 450 MG as directed Orally Active Eliquis 5 MG 1 tablet Orally Twic e a day for 30 day(s) Active Zinc Gluconate 50 MG 1 tablet Orally Onc e a day for 30 day(s) Not-Taking Melatonin 3 MG 1 tablet at bedtime as needed Orally Once a day for 30 day(s) Active Potassium Chloride A ctive Pantoprazole Sodium 40 MG 1 tablet Orall y Once a day for 30 day(s) Active Nystatin Active Gabapentin Active Social History Tobacco Use: Social History Observation Description Date Details (start date - stop date) Never Smoker NA - NA Tobacco use other than smoking: Question Answer Notes Are you an other tobacco user? No Tobacco Control (Standard) Question Answer Notes Tobacco use: Nonsmoker Additional Findings: Tobacco non-user Ex-cigaret te smoker Problems Problem Type SNOMED Code ICD Code Onset Dates Problem Status W/U Status Risk Notes Problem Neuropathy (054180749) Neuropathy (G62.9) Active confirmed Vital Signs Blood pressure systolic 135 mm Hg 01/05/20 25 Blood pressure diastolic 75 mm Hg 025 Height 5 ft 3 in in 01/04/2025 Weight 153 lbs 01/04/2025 BMI 27.1 kg/m2 01/04/2025 Procedures Procedure Date Ordered Date Performed Result Body Sit e 54508-FDGARHY NAIL, 6 OR MORE 01/04/2025 N/A Encounters Encounter Location Date Provider Diagnosis [facility] [address] [address] 01/04/2025 Mari Chowdhury Tinea unguium B35.1 ; Neuropathy G62.9 ; Pain in right toe(s) M79.674 ; Pain in left toe(s) M79.675 ; Neuritis M79.2 ; 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 ; Pain in left foot M79.672 and Pain in right foot M79.671 Assessments Encounter Date Diagnosis (ICD Code) Assessment Notes Treatment Notes Treatment Clinical Notes Section Notes 01/04/2025 Tinea unguium (ICD-10 - B35.1) 01/04/2025 Neuropathy (ICD-10 - G62.9) 01/04/2025 Pain in right toe(s) (ICD-10 - M79.674) 01/04/2025 Pain in left toe(s) (ICD-10 - M79.675) 01/04/2025 Neuritis (ICD-10 - M79.2) 01/04/2025 Neurapraxia of lower extremity (ICD-10 - S84.90XA) 01/04/2025 Pain in left foot (ICD-10 - M79.672) 01/04/2025 Pain in right foot (ICD-10 - M79.671) Plan Of Treatment Pending Test Test Name Order Date [id number] NAIL, 6 OR MORE 01/04/2025 Next Appt Details Follow Up: prn, Reason: Provider Name:Mari Chowdhury , 05/10/2025 11:30:00 AM, [address] [place] [address], [phone], Procedure Notes * Category Sub-Category Detail Notes Debride Nail 6-10 Nail debridement Due to the cl inical pathology outlined in the exam findings, performance of this nail treatment is medically necessary as its management by an unskilled/untrained nonprofessional would put this patients foot and overall health at risk. Therefore, debridement to affected nail(s), as described in exam ( TA, T1, T2, T3, T4, T5, T6, T7, T8, T9,), was performed exclusively by the physician of record to reduce/remove overall nail length, girth, thickness, subungual debris, and necrotic tissue, by manual and/or electrical means through the use of a nail nipper and/or dremel-type double end production grinder, to a more viable healthy nail plate or bed tissue 6-10 nails in total. Silver nitrate was used for any petechial bleeding as necessary. Definitive antifungal treatment options, both pharmaceutical and surgical, have been reviewed and discussed with the patient. The patient solely prefers the use of intermittent/as needed professional debridement services for their nail condition and understands the need for additional periodic treatments to maintain effectiveness in symptomatic relief - 03920 Progress Notes * Karena MARXmelissateshaDOB:[birth year] (84 yo F)Acc No.[id number]:01/04/2025 Progress Note Patient:?Cande MARX Provider:?Mari Chowdhury DPM :1940???Age:84 Y???Sex:Female D ate:01/04/2025 Address:[address] [place], [place] [id number] Pcp:Jonna Childress Subjective: * Chief Complaints: * ???Pcp-12/12Painful Nail(s) aggrevated by shoes and causing difficulty standing/walking.Foot pain * HPI: ???Painful Nails:?Pt States Last PCP Visit:?Date:?08/03/2024 ???Foot Pain:?Nature:?burning, numbness, tingling, shooting, radiating,.?Location:?, B/L.?Duration:?, several months.?Onset:?unknown, denies trauma.?Course:?worse, especially at night in bed.?Aggravated:?no known aggrevating factors.?Treatments:?, medication (gabapentin) does not help.? * ROS:?General/Constitutional:?Nausea?denies.?Vomiting?denies.?Hunger Thirst?denies.?Loss appetite?denies.?Chills?denies.?Fatigue?denies.?Fever?denies.?Night Sweats?denies.?Unexplained weight loss?denies.?Ophthalmologic:?Blurred vision?denies.?Red eye?denies.?HEENTM:?Dentures?denies.?Dizziness?denies.?Glasses/contacts?admits.?Retinopathy?de nies.?Blurred/double vision?denies.?TMJ?denies.?Discharge/drainage?denies.?Implants?denies.?Hard of hearing denies.?Difficulty chewing/swallowing/speaking?denies.?Nose bleeds?denies.?Sore mouth?denies.?Swollen glands?denies.?Respiratory:?On Oxygen?denies.?Pneumonia/pleurisy?denies.?Bronchitis?denies.?Emphysema?denies.?C oughing?denies.?Cough blood?denies.?Shortness of breath?denies.?Wheezing?denies.?Cardiovascular:?Pacemaker?denies.?MVP?denies.?WPW?denies.?CHF?denies.?Heart attack?denies.?Septal defect?denies.?Rapid beat?denies.?Chest pain ?denies.?Atrial Fib.?denies.?Murmur/Palpitations?denies.?Gastrointestinal:?Hemorrhoids?denies.?Stomach/Abdominal pain?denies.?Dark blood stool?denies.?Irritable bowel ?denies.?Constipation?denies.?Diarrhea?denies.?Vomiting?denies.?Hematology:?Swelling?denies.?Bruising?denies.?Bleeding problem?denies.?Genitourinary:?Blood urine?denies.?Frequent/Painfu/urination/bladder control?denies.?Kidney stones?denies.?Infection (UTI)?denies.?Nephropathy?denies.?Musculoskeletal:?Hammertoes?denies.?Bunions?denies.?Scoliosis/kyphosis?denies.?Muscle cramps / walking?denies.?Generalized aches and pains?admits.?Weakness?denies.?Integ.:?Guillaume?denies.?Scars?denies.?Corns/calluses?admits.?Ingrown nails?denies.?Painful nails?denies.?Rashes?denies.?Neurologic:?Difficulty sleeping?denies.?Bipolar?denies.?Brain disorder?denies.?Balance trouble?denies.?Confusion?denies.?Fainting/blackouts?denies.?Headache?denies.?Tr emors?denies.? * Medical History:? * Surgical History:?appendecto my 1960breast surgery 1967cholecystectomy 1969basal cell removal forehead and right leg 07/2015biopsy of neck 08/2024 * Hospitalization/Major Diagno stic Procedure:?[place]- ER- Diarrhea 06/2018[facility] Er- right knee pain couldn't walk 08/2021[facility]- GI Infection 12/09/23-12/16/23- Leak and GI Infection 11/06/23 - Stroke 08/09 * Family History:?Mother: dece ased, kidney failure, diagnosed with Other malignant neoplasm of unspecified site.?Father: , diagnosed with Other malignant neoplasm of unspecified site.? * Social History:?Tobacco Use:?Tobacco use other than smoking?Are you an other tobacco user??No ?Tobacco Control (Standard)?Tobacco use:?Nonsmoker ?Additional Findings: Tobacco non-user?Ex-cigarette smoker ???Miscellaneous:?Caffeine: yes, frequency: tea, gingerale, 2-3 cups per day. ?Children: yes. ?Exercise: yes, walking, PT. ?Marital status: . 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 * Medications:?TakingGabapenti n Potassium Chloride Pantoprazole Sodium 40 MG Tablet Delayed Release 1 tablet Orally Once a day Nystatin Melatonin 3 MG Tablet 1 tablet at bedtime as needed Orally Once a day Ketoconazole 2 % Cream 1 application Externally Once a day , Notes to Pharmacist: PNRCranberry 450 MG Capsule as directed Orally Eliquis 5 MG Tablet 1 tablet Orally Twice a day amLODIPine Besylate 5 MG Tablet 1 tablet Orally Once a day Hydrocortisone , Notes to Pharmacist: PRNProbiotic Losartan Potassium 50 MG Tablet 1 tablet Orally Once a day Tylenol , Notes to Pharmacist: prnMetoprolol Succinate ER 50 MG Tablet Extended Release 24 Hour 1 tablet Orally Once a day Taking Gabapentin Taking Potassium Chloride Taking Pantoprazole Sodium 40 MG Tablet Delayed Release 1 tablet Orally Once a day Taking Nystatin Taking Melatonin 3 MG Tablet 1 tablet at bedtime as needed Orally Once a day Taking Ketoconazole 2 % Cream 1 application Externally Once a day , Notes to Pharmacist: PNRTaking Cranberry 450 MG Capsule as directed Orally Taking Eliquis 5 MG Tablet 1 tablet Orally Twice a day Taking amLODIPine Besylate 5 MG Tablet 1 tablet Orally Once a day Taking Hydrocortisone , Notes to Pharmacist: PRNTaking Probiotic Taking Losartan Potassium 50 MG Tablet 1 tablet Orally Once a day Taking Tylenol , Notes to Pharmacist: prnTaking Metoprolol Succinate ER 50 MG Tablet Extended Release 24 Hour 1 tablet Orally Once a day Not-Taking/PRNZinc Gluconate 50 MG Tablet 1 tablet Orally Once a day Multivitamin Centrum Silver traZODone HCl 50 MG Tablet 1 tablet at bedtime as needed Orally Once a day Sulfamethoxazole-Trimethoprim 800-160 MG Tablet 1 tablet Orally Three times a Week Sulfamethoxazole-Trimethoprim 800-160 MG Tablet 1 tablet Orally Three times a Week Atorvastatin Calcium 80 MG Tablet 1 tablet Orally Once a day Fiber Mometasone Furoate Lotrimin AF Atenolol 100 MG Tablet Orally Ciclopirox 0.77 % Gel 1 application to affected area Externally Twice a day NIFEdipine 60 MG Tablet Extended Release Orally Clotrimazole-Betamethasone 1-0.05 % Cream 1 application Externally Twice a day Physical Therapy . . . . 2-3x/week Loprox 0.77 % Cream 1 application Externally Twice a day immodium Metamucil Colestipol HCl Ciclopirox Olamine Nifediac CC 60 MG Tablet Extended Release 24 Hour Orally Ciclopirox Olamine 0.77% Cream external Apply to effected areas twice a day Medication List reviewed and reconciled with the patientNot-Taking/PRN Zinc Gluconate 50 MG Tablet 1 tablet Orally Once a day Not-Taking/PRN Multivitamin Not- Taking/PRN Centrum Silver Not-Taking/PRN traZODone HCl 50 MG Tablet 1 tablet at bedtime as needed Orally Once a day Not-Taking/PRN Sulfamethoxazole-Trimethoprim 800-160 MG Tablet 1 tablet Orally Three times a Week Not-Taking/PRN Sulfamethoxazole-Trimethoprim 800-160 MG Tablet 1 tablet Orally Three times a Week Not-Taking/PRN Atorvastatin Calcium 80 MG Tablet 1 tablet Orally Once a day Not-Taking/PRN Fiber Not-Taking/PRN Mometasone Furoate Not-Taking/PRN Lotrimin AF Not-Taking/PRN Atenolol 100 MG Tablet Orally Not-Taking/PRN Ciclopirox 0.77 % Gel 1 application to affected area Externally Twice a day Not-Taking/PRN NIFEdipine 60 MG Tablet Extended Release Orally Not-Taking/PRN Clotrimazole-Betamethasone 1-0.05 % Cream 1 application Externally Twice a day Not-Taking/PRN Physical Therapy . . . . 2-3x/week Not-Taking/PRN Loprox 0.77 % Cream 1 application Externally Twice a day Not-Taking/PRN immodium Not-Taking/PRN Metamucil Not-Taking/PRN Colestipol HCl Not-Taking/PRN Ciclopirox Olamine Not-Taking/PRN Nifediac CC 60 MG Tablet Extended Release 24 Hour Orally Not-Taking/PRN Ciclopirox Olamine 0.77% Cream external Apply to effected areas twice a day Medication List reviewed and reconciled with the patient * Allergies:?Lamisil: rashAmox icillin: hivesPercocet: Allergyyes[Allergies Verified] Objective: * Vitals:?Ht: 5 ft 3 in, Wt: 1 53, BMI: 27.1, Shoe size: 8, BP: 135/75 mm Hg, Wt- k.4 kg. * Examination: ???General Examination: ?GENERAL APPEARANCE:?Reveals a pleasant, alert, well nourished, well- developed, well hydrated individual, who demonstrates proper attention to hygiene/body habitus, and is in no acute distress, Pt serves as own historian for office visit today.?ORIENTED:?person, place, and time.?Nails: ?NAILS are:?elongated,overgrown,dystrophic,greater than 3mm thick,discolored and friable with crumbly malodorous subungual debris, with pain on palpation, , TA, T1, T2, T3, T4, T5, T6, T7, T8, T9.?Ingrown Nail: ?INSPECTION:?Reveals nail incurvation, pain on palpation, groove hypertrophy, groove ischemia, Lateral nail border, T5.?Vascular: ?DP PULSES (B):?3/4, B/L.?PT PULSES (B):?3/4, B/L.?CAPILLARY FILL TIME:?immediate, all digits, B/L.?TROPHIC CONDITION-TEXTURE/ELASTICITY/TURGOR/HAIR GROWTH (B):?normal, B/L.?Neurological: ?SENSORY:?Neurological exam demonstrates reduced sharp/dull pin prick discrimination reduced light touch sensation reduced vibration sensation reduced proprioception sensation in a stocking fashion 5.07 monofilament test performed at plantar aspects of 5 varied sites per foot shows sensation plantar aspects absent at Forefoot B/L, Pt relates, burning, paresthesia, pins and needles sensation, shooting/radiating sensation, especially in the evening, B/L.?TINEL'S COMPRESSION:?Negative tarsal tunnel, phan pedis, and medial calcaneal nerves.?Neuroma Pain: ?PALPATION:?No interspace pain noted on palpation.? 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 Plan: * Treatment: * Procedures:?Debride Nail 6-10:?Nail debridement?Due to the clinical pathology outlined in the exam findings, performance of this nail treatment is medically necessary as its management by an unskilled/untrained nonprofessional would put this patients foot and overall health at risk. Therefore, debridement to affected nail(s), as described in exam ( TA, T1, T2, T3, T4, T5, T6, T7, T8, T9,), was performed exclusively by the physician of record to reduce/remove overall nail length, girth, thickness, subungual debris, and necrotic tissue, by manual and/or electrical means through the use of a nail nipper and/or dremel-type double end production grinder, to a more viable healthy nail plate or bed tissue 6- 10 nails in total. Silver nitrate was used for any petechial bleeding as necessary. Definitive antifungal treatment options, both pharmaceutical and surgical, have been reviewed and discussed with the patient. The patient solely prefers the use of intermittent/as needed professional debridement services for their nail condition and understands the need for additional periodic treatments to maintain effectiveness in symptomatic relief - 84689.? * Procedure Codes:?79534 DEBRI DE NAIL, 6 OR MORE, Modifiers: XS * Preventive Medicine:? ??Counseling:?Discussion:?-13: Office or other outpatient visit for the evaluation and management of an established patient, which required a medically appropriate history and/or examination and LOW level of DECISION MAKING for: 1 STABLE ACUTE UNCOMPLICATED PROBLEM, 2 OR MORE MINOR PROBLEMS, OR 1 STABLE CHRONIC PROBLEM, THAT POSE(S) A LOW RISK FOR MORBIDITY/MORTALITY. The visit on the day of the encounter encompassed interpreting the data and educating the patient as to the nature of their condition, treatment options available according to their individual PMH, meds, allergies, and overall health/living conditions, as well as any potential risks or complications that may occur from a failure to adhere to, and participate in, the recommended course of therapy. The discussion included a complete verbal, and/or written explanation of the examination results, any x-rays taken, the proposed diagnosis, and outline of the treatment plan. A schedule for future care needs was also explained. The patient verbalized an understanding of the instructions at this time and agreed to be an active participant in their treatment. If the patient should think of any questions or concerns after the visit, I have encouraged the patient to call the office.?Neuritis/Neuropathy:?The patient was counseled on the diagnosis, possible etiologies (including mechanical stress, injury, entrapment, chemotherapy, diabetes, vertebral disk herniation if hx), treatment options, and importance for adherence to recommendations in order to address the patients Neuritis/Neuropathy. The advantages and disadvantages re: Accomidative mechanical support/offloading, Topical vs PO analgesics including aspercream/Voltaren gel/Lidoderm patches/Neurontin/Lyrica along with their potential side effects were discussed with the patient to their satisfaction. Also discussed the use of therapeutic injectable cortisone if needed. Surgical treatment, if considered an option, was discussed as well. If surgery is warranted, we discussed the potential successful outcomes as well as the possible complications such as failure, painful scar, permanent tingling/numbness/neuralgea/or intractable pain. Patient questions re: medication use, dosage, and possible side effects and drug interactions were reviewed and the answers to each understood. If the condition worsens, the patient was instructed to contact the office for an appointment. The patient verbally confirmed a full understanding of the above, Recommended Topical analgesics including aspercream/Voltaren gel/Lidoderm patches. recomm pt speak to PCP regarding increase in gabapetin.? * Follow Up:?prn * Images: * Sign off status: Completed true * Provider:?Mari Chowdhury DPM Date:?2024 Generated for Autumn patel/Samuel/Pelon on:?01/23/2025 04:38 PM EDT History and Physical Notes * HPI (History of Present Illness) Category Sub-Category Detail Notes Category Not es Painful Nails Pt States Last PCP Visit: Date:: 08/03/2024 Foot Pain Nature: burning, numbnes s, tingling, shooting, radiating, Location: , B/L Duration: , several months Onset: unknown, denies jessee brock Course: worse, especially at night in bed Aggravated: no known aggrevating factors Treatments: , medication (gabape ntin) does not help Examination Category Sub-Category Detail Notes Category Not es Ingrown Nail INSPECTION: Reveals nail inc urvation, pain on palpation, groove hypertrophy, groove ischemia, Lateral nail border, T5 Neuroma Pain PALPATION: No interspace pain noted on palpation Neurological SENSORY: Neurological exa m demonstrates reduced sharp/dull pin prick discrimination reduced light touch sensation reduced vibration sensation reduced proprioception sensation in a stocking fashion 5.07 monofilament test performed at plantar aspects of 5 varied sites per foot shows sensation plantar aspects absent at Forefoot B/L, Pt relates, burning, paresthesia, pins and needles sensation, shooting/radiating sensation, especially in the evening, B/L TINEL'S COMPRESSION: Negative tarsal lisa surjit, phan pedis, and medial calcaneal nerves Dermatologic VERRUCA: General Examination GENERAL APPEARANCE: Reveals a pleasant, alert, well nourished, well-developed, well hydrated individual, who demonstrates proper attention to hygiene/body habitus, and is in no acute distress, Pt serves as own historian for office visit today ORIENTED: person, place, and t emigdio Vascular DP PULSES (B): 3/4, B/L PT PULSES (B): 3/4, B/L CAPILLARY FILL TIME: immediate, all digi ts, B/L TROPHIC CONDITION-TEXTURE/EL ASTICITY/TURGOR/HAIR GROWTH (B): normal, B/L Nails NAILS are: elongated,overgr own,dystrophic,greater than 3mm thick,discolored and friable with crumbly malodorous subungual debris, with pain on palpation, , TA, T1, T2, T3, T4, T5, T6, T7, T8, T9
--- OUTSIDE RECORDS SUMMARY | 2025-01-23 16:39 | XMS_ITS | Encounter Summary ---
[facility] Organization [facility] Address [address] [place] [address] Care Team Providers Care German Teacher Name Role Phone Jonna Nieto MD Primary Care Prov ider Reason for Visit * Reason Onset Date Comments Faxed Order 01/12/2025 [facility] home health order tracking# [id number] Encounter Details Date Type Department Care Team ([facility] Contact Info) Description 01/12/2025 Telephone Adult Medicine [address] [phone] Jaleesa Negron, TAMIKA Faxed Order ([facility] home health order tracking# [id number]) Social History Tobacco Use Types Packs/Day Years [...] for your loved ones. For example, child day care center worker or elderly care for an older [...] as of this encounter Progress Notes * Jaleesa Negron RN - 01/12/2025 2:04 PM EDT Received [facility] home health order tracking# [id number]. Please sign and fax to [phone]. documented in this encounter Plan of Treatment Upcoming Encounters Date Type Department Care Team (Late st Contact Info) Description 02/16/2025 10:50 AM EDT Consult Pulmonolgy - [place] [address] [place] [address] Rosario Uribe NP [address] [place] [address] documented as of this encounter Visit Diagnoses Not on filedocumented in this encounter Additional Health Concerns Assessment Noted Time A fall risk assessment has been complete d for the patient 10/25/2024 2:40 PM EST documented as of this encounter Care Teams German Teacher Relationship Specialty Start Date End Date Jonna Nieto MD [address] [place] [phone] PCP - General Internal Medicine 07/13/22 documented as of this encounter
--- OUTSIDE RECORDS SUMMARY | 2025-01-23 16:39 | XMS_ITS | Clinical Summary ---
Author Organization [address] [facility] Address [address] [place] [address] Phone Care Team Providers Care Therapy Administrative Assistant Name Role Phone Jonna Nieto MD Primary Care Prov ider Allergies Active Allergy Reactions Criticality Noted Date Comments Codeine 08/03/2022 Intolerance, burping, esophageal irritation Penicillin G Procaine Hives 09/23/2005 Terbinafine High 08/03/2007 Other Reaction(s): Rash/Dermatitis Medications Lactobacillus acidophilus (PROBIOTIC ORAL) Take by mouth. Activ e zinc gluconate 50 mg tablet Take 1 Tablet by mouth daily. 11/15/19 24 Active acetaminophen (TYLENOL) 500 mg tablet Take 2 Tabs by mouth 3 times daily as needed. Active clotrimazole-be tamethasone (LOTRISONE) 1-0.05 % cream 1 APPLICATION EXTERNALLY TWICE A DAY 30 DAYS 12/10/19 23 Active cranberry fruit 450 mg tablet as directed Orally Active gabapentin (NEURONTIN) 100 mg capsule TAKE 1 -3 CAPS ORALLY BEDTIME FOR 30 DAYS 04/10/20 24 Active ketoconazole (NIZORAL) 2 % cream APPLY TO RASH ON TRUNK TWICE A DAY UNTIL RESOLVED, AND NEEDED FLARES 12/03/19 24 Active loperamide (IMODIUM) 2 mg capsule Take 1 Capsule by mouth 4 times daily as needed for Diarrhea. 01/12/20 24 Active losartan (COZAAR) 50 mg tablet TAKE 1 TABLET BY MOUTH EVERY DAY 06/22/20 24 Active melatonin 3 mg tablet Take by mouth. Activ e Eliquis 5 mg tablet TAKE 1 TABLET BY MOUTH 2 TIMES DAILY EVERY 12 HOURS 180 tablet 1 10/04/20 24 Active amLODIPine (NORVASC) 2.5 mg tablet Take 1 tablet (2.5 mg total) by mouth 1 (one) time each day. 90 tablet 1 10/04/20 24 Active nystatin (MYCOSTATIN) 100,000 unit/gram powder Apply 1 Application topically if needed for rash. 11/11/19 25 Active ascorbic acid (VITAMIN C) 500 mg tablet Take 1 tablet (500 mg total) by mouth 1 (one) time each day. Active cholecalciferol , vitD3,/vit K2 (vitamin D3-vitamin K2) 125-90 mcg capsule Take 1 capsule by mouth 1 (one) time each day. Active metoprolol tartrate (LOPRESSOR) 50 mg tablet TAKE 1/2 TABLET TWICE A DAY BY MOUTH 30 tablet 5 12/11/19 25 Active pantoprazole (PROTONIX) 40 mg EC tablet TAKE 1 TABLET BY MOUTH EVERY DAY 90 tablet 01/03/20 25 Active KLOR-CON 20 mEq CR tablet TAKE 1 TABLET BY MOUTH EVERY DAY 90 tablet 01/10/20 25 Active pantoprazole (PROTONIX) 40 mg EC tablet TAKE 1 TABLET BY MOUTH EVERY DAY 90 tablet 10/04/20 24 025 Discontinued KLOR-CON 20 mEq CR tablet TAKE 1 TABLET BY MOUTH 1 TIME EACH DAY. 90 tablet 10/13/20 24 025 Discontinued Active Problems Problem Noted Date Diagnosed Date Pneumonia 12/07/2024 Hemiplegia and hemiparesis f ollowing cerebral infarction affecting right dominant side 12/07/2024 History of falling 12/07/2024 Personal history of urinary (tract) infections 0 12/07/2024 Personal history of malignant melanoma of skin 0 12/07/2024 correction (current) use of anticoagulants 2024 Unspecified mood (affective) disorder 12/07/2024 Gastroesophageal reflux disease without esophagi tis 12/07/2024 Right thyroid nodule 11/16/2024 Breast calcification, right 11/16/2024 Gross hematuria 11/01/2024 Assessment & Plan (11/01/2024 2:15 PM EST): Resolved. No evidence of vulvar or vaginal source of bleeding. Encouraged her to call if this changes given we would want to evaluate the uterus. She agreed. Encouraged her to wear a skin barrier to protect her vulvar skin from her diaper. A-fib 11/24/2023 Overview (09/21/2024): Last Assessment & Plan: Patient is a high risk for recurrent stroke in the light of the fact that she already had a stroke, continue Eliquis 5 twice daily for CVA prophylaxis, continue low- dose metoprolol for rate control-on recent Holter monitor, she showed excellent rate control. Patient is asymptomatic so rate control strategy is most appropriate. It does not look as though an echocardiogram was performed in the hospital. However, given benign cardiac exam today and lack of cardiac symptoms, I am not certain that 1 needs to be done. I have very low suspicion for any valvular or structural pathology. Venous insufficiency (chronic) (peripheral) 08/18 Overview (09/21/2024): Dr. Beltran Prediabetes 01/02/2022 Collagenous colitis 12/28/2018 Overview (09/21/2024): Diagnosed on colonoscopy 11/2018 Intermittent diarrhea 09/21/2018 Benign essential hypertension 01/04/2017 Overview (09/21/2024): Last Assessment & Plan: Well-controlled on current regimen of losartan and metoprolol, continue. Low back pain radiating to left leg 01/23/2014 Overview (09/21/2024): Also groin pain and knee pain Osteoarthritis of hip 01/23/2014 Overview (09/21/2024): IMO update Hypercholesterolemia 01/12/2012 Overview (09/21/2024): Last Assessment & Plan: Continue high-dose atorvastatin for secondary prevention. Hemorrhoids 02/26/2010 Encounters Date Type Department Care Team Description 01/22/2025 Telephone Adult [address] [phone] Jonna Ojeda MD orders 01/12/2025 Telephone Adult [address] [phone] Jaleesa Negron, TAMIKA Faxed Order ([facility] home health order tracking# [id number]) 12/22/2024 Telephone Adult [address] [phone] Jaleesa Negron, TAMIKA Faxed Order ([employer] Discharge Summary Order Tracking# [id number]) 12/11/2024 Telephone Adult [address] [phone] Makeda Atkinson LPN Fitting for DME 12/08/2024 9:02 AM EST - 12/08/2024 11:59 PM EST Hospital Encounter CT Scan - [address] [phone] Pneumonia of both lungs due to infectious organism, unspecified part of lung Discharge Disposition: Home or Self Care 12/08/[address] [phone] Jenny Day [place] faxed order ([employer] [facility] tracking #[id number], #[id number]\, #[id number]) 12/07/2024 Billing Patient Not Present Adult [address] [phone] Jonna Ojeda MD Aspiration pneumonia, unspecified aspiration pneumonia type, unspecified laterality, unspecified part of lung (CMS/HCC) (Primary Dx); Hemiplegia and hemiparesis following cerebral infarction affecting right dominant side (CMS/HCC); Persistent atrial fibrillation (CMS/HCC); Benign essential hypertension; Venous insufficiency (chronic) (peripheral); Osteoarthritis of hip, unspecified laterality, unspecified osteoarthritis type; History of falling; Personal history of urinary (tract) infections; Personal history of malignant melanoma of skin; Gastroesophageal reflux disease without esophagitis 12/01/2024 8:40 AM EST - 12/01/2024 11:59 PM EST Hospital Encounter Radiology Department - [address] [phone] Thyroid nodule Discharge Disposition: Home or Self Care 11/21/2024 1:04 PM EST - 11/21/2024 11:59 PM EST Hospital Encounter Radiology Department - [address] [phone] Right thyroid nodule Discharge Disposition: Home or Self Care 11/16/2024 10:30 AM EST Office Visit Adult Medicine [address] [phone] Katina Resendiz PA Pneumonia of both lungs due to infectious organism, unspecified part of lung (Primary Dx); Near syncope; Right thyroid nodule; Breast calcification, right; Atrial fibrillation, unspecified type (CMS/HCC) 11/13/2024 Telephone Adult Medicine [address] [phone] Jonna Ojeda MD Establish Care 11/01/2024 9:15 AM EST Office Visit Obstetrics and Gynecology - [address] [phone] Rosemary Garza MD Gross hematuria (Primary Dx) 10/26/2024 Telephone Obstetrics and Gynecology [address] [phone] Rosemary Garza MD Referral 10/25/2024 3:00 PM EST Office Visit Adult Medicine [address] [phone] Katina Resendiz PA Urinary tract infection with hematuria, site unspecified (Primary Dx); Vaginal bleeding; Vaginal irritation; Atrial fibrillation, unspecified type (CMS/HCC); Decreased GFR 10/25/2024 Telephone Adult Medicine [facility] [address] [place] [phone] Boni cruz, Jonna Ackerman MD UTI from Last 3 Months Immunizations Name Administration Dates Next Due Pfizer SARS-CoV-2 COVID-19, mRNA, LNP-S, preservative free 01/14/2021 Pneumococcal conjugate 13 va lent (Prevnar 13, PCV13) 2mo and older 07/06/2016 Pneumococcal polysaccharide 23 valent (Pneumovax 23) 2yo and older 05/09/2008 Td, Unspecified 09/18/2004 Tdap Tetanus diptheria acell ular pertussis (Boostrix; Adacel) 7yo and older 08/06/2023,07/10/2013 Surgical History Surgery Date Site/Laterality Comments BREAST LUMPECTOMY PROCEDURE: ---- BREAST LUMP BIOPSY ---- SALPINGOOPHORECTOMY PROCEDURE: NM LAPAROSCOPY W/RMVL ADNEXAL STRUCTURES; COMMENT: cyst removed APPENDECTOMY 1964 PROCEDURE: NM APPENDECTOMY CHOLECYSTECTOMY 1968 PROCEDURE: NM LAPAROSCOPY SURG CHOLECYSTECTOMY FINE NEEDLE ASPIRATION PROCEDURE: FINE NDLE ASPRTN W/IMAGING GUIDANCE; COMMENT: lt. breast bx-benign BREAST SURGERY PROCEDURE: NM UNLISTED PROCEDURE BREAST; COMMENT: lt. cyst removed... COLONOSCOPY 04/02/2010 PROCEDURE: HISTORICAL COLONOSCOPY; COMMENT: adenoma and hemorrhoids and diverticulosis; repeat in five years COLONOSCOPY 06/13/2015 PROCEDURE: HISTORICAL COLONOSCOPY; COMMENT: tics; would not repeat OTHER SURGICAL HISTORY PROCEDURE: HISTORICAL MELANOMA; COMMENT: Malignant Melanoma 07/26 left shoulder (superficial spreading Breslow 0.27mm Patrick's level II) OTHER SURGICAL HISTORY PROCEDURE: HISTORICAL SQUAMOUS CELL CA; COMMENT: SCC 03/04 left side of forehead (favor invasive) 08/03 right infraorbital (corrected with Mohs procedure) 11/02 left thigh (well-differentiated, superficially invasive) MOLE REMOVAL PROCEDURE: HISTORICAL MOLE (REMOVAL OF); COMMENT: Dysplastic nevus 08/26 chest (mild) OTHER SURGICAL HISTORY PROCEDURE: HISTORICAL CA BASAL CELL; COMMENT: BCC 05/01 forehead (nodular) & right leg (nodular & superficial) 04/27 right alar crease (nodular) 08/26 left leg (micronodular) COLONOSCOPY 06/18/2019 PROCEDURE: HISTORICAL COLONOSCOPY OTHER SURGICAL HISTORY Left PROCEDURE: HISTORY OTHER; COMMENT: EVLT phlebectomy, Dr Beltran Medical History Medical History Date Comments Historical Medical DX DX:Other a nd unspecified malignant neoplasm of skin of other and unspecified parts of face Personal history of malignan t melanoma of skin DX:Personal history of malig nant melanoma of skin Dysplastic nevus 09/05/2009 DX:Dysplastic n evus Heart disease, unspecified 07/30/2006 DX:He art disease, unspecified Historical Medical DX 01/23/2014 DX:DJD (de generative joint disease) of hip Other specified personal his tory presenting hazards to health(V15.89) DX:Other specifie d personal history presenting hazards to health(V15.89); COMMENT: lt. shoulder melanoma & skin ca on abd. History of malignant melanoma 08/13/2009 DX :History of malignant melanoma; COMMENT: Malignant Melanoma 07/26 left shoulder (superficial spreading Breslow 0.27mm Patrick's level II) History of basal cell carcinoma 09/05/2009 DX:History of basal cell carcinoma; COMMENT: BCC 05/01 forehead (nodular) & right leg (nodular & superficial) 04/27 right alar crease (nodular) 08/26 left leg (micronodular) History of dysplastic nevus 09/05/2009 DX:H istory of dysplastic nevus; COMMENT: Dysplastic nevus 08/26 chest (mild) History of squamous cell carcinoma 11/22/2015 DX:History of squamous cell carcinoma; COMMENT: SCC 03/04 left side of forehead (favor invasive) 08/03 right infraorbital (corrected with Mohs procedure) 11/02 left thigh (well-differentiated, superficially invasive) History of actinic keratoses 06/28/2017 DX: History of actinic keratoses; COMMENT: Actinic keratoses 07/04 right cheek (hypertrophic) Intermittent diarrhea 09/21/2018 DX:Intermi ttent diarrhea Collagenous colitis 12/28/2018 DX:Collageno us colitis; COMMENT: Diagnosed on colonoscopy 11/2018 Ventral hernia DX:Ventral herni a Essential (primary) hypertension DX:Essential (primary) hypertension Passage of loose stools DX:Passa ge of loose stools Low potassium syndrome DX:Low po tassium syndrome History of Clostridioides di fficile infection DX:History of Clostridioides difficile infection Family History Medical History Relation Name Comments Other cancer Father throat Other Dermatological Disorders Mother cancer on lower lip that spread to lymph nodes .... ? due to smoking Breast cancer Neg Hx Relation Name Status Comments Father throat cancer Mother lip cancer, CKD Social History Tobacco Use Types Packs/Day Years Used Date Smoking Tobacco: Never Smokeless Tobacco: Never Tobacco Cessation:Counseling Given: Not Answered Alcohol Use Standard Drinks/Week Comments Yes 0 [...] care for your loved ones. For example, special needs child caregiver or elderly care for an older adult? [...] on file Sexual Orientation Not on file Obstetrics History Para Term AB IAB SAB Ectopic Multiple Livin g Live Births 6 4 4 2 2 4 4 Date Outcome GA Total Labor Labor/2nd/3rd Weight Sex Type Anes PTL [place] A1 A5 Name Clin Term Living Term Living Term Living Term Living SAB SAB Last Filed Vital Signs Vital Sign Reading Time Taken Comments Blood Pressure 120/72 11/16/2024 10:20 AM EST Pulse 70 11/16/2024 10:20 AM EST Temperature 36.2 ??C (97.2 ??F) 11/16/2024 10:[address] Respiratory Rate 14 11/16/2024 10:20 AM EST Oxygen Saturation 98% 11/16/2024 10:20 AM EST Inhaled Oxygen Concentration - - Weight 69.6 kg (153 lb 6.4 oz) 11/16/2024 10:20 AM EST Height 160 cm (5' 3 ) 11/16/2024 10:20 AM EST Body Mass Index 27.17 11/16/2024 10:20 AM EST Plan of Treatment Upcoming Encounters Date Type Department Care Team (Late st Contact Info) Description 02/16/2025 10:50 AM EDT Consult Pulmonolgy - [place] [address] [place] [id number] Rosario Uribe NP [address] [place] [address] Health Maintenance Due Date Last Done Comments Zoster Vaccines (1 of 2) 1959 RSV Immunization Adult Patients (1 - 1-dose 75+ series) 2015 Osteoporosis Screening (Bone Density Screening) 09/26/2022 COVID-19 Vaccine ( season) 2024 01/14/2021, 12/24/2020, 12/03/2020 Influenza Vaccine (Season Ended) 2025 Depression Screening 07/19/2025 07/19/2024 Medicare Annual Wellness Visit 07/19/2025 07/19/2024 Falls Risk Assessment 10/25/2025 10/25/2024 Hypertension/CHF/CAD Annual BMP Blood Test 10/25/2025 10/25/2024, 09/19/2024, 04/25/2024, Additional history exists Social Influencers of Health Screening 10/25/2025 10/25/2024 Cholesterol Screening (Lipid Panel) 09/19/2029 09/19/2024, 09/19/2024, 09/19/2024, Additional history exists DTaP,Tdap,and Td Vaccines (4 - Td or Tdap) 08/06/2033 08/06/2023, 07/10/2013, 09/18/2004 Pneumococcal Vaccine: 50+ Years Completed 07/06/2016, 05/09/2008 HIB Vaccines Aged Out No longer eligi ble based on patient's age to complete this topic HPV Vaccines Aged Out No longer eligi ble based on patient's age to complete this topic Hepatitis A Vaccines Aged Out No long er eligible based on patient's age to complete this topic Hepatitis B Vaccines Aged Out No long er eligible based on patient's age to complete this topic IPV Vaccines Aged Out No longer eligi ble based on patient's age to complete this topic MMR Vaccines Aged Out No longer eligi ble based on patient's age to complete this topic Meningococcal ACWY Vaccine Aged Out N o longer eligible based on patient's age to complete this topic Meningococcal B Vaccine Aged Out No l onger eligible based on patient's age to complete this topic RSV Immunization Patients Under 20 months Aged Out No longer eligible based on patient's age to complete this topic Varicella Vaccines Aged Out No longer eligible based on patient's age to complete this topic Procedures Procedure Name Priority Date/Time Associated Diagnosis Comments EXTERNAL CT REPORT Routine 01/09/2025 9: [address] REPORT Routine 01/09/2025 9: [address] CHEST WO CONTRAST Routine 12/08/2024 9:25 AM EST Pneumonia of both lungs due to infectious organism, unspecified part of lung US GUIDED FINE NDL ASP 1ST LESION Routine 12/01/2024 9:11 AM EST Thyroid nodule US HEAD NECK SOFT TISSUE Routine 11/21/2024 1:54 PM EST Right thyroid nodule CBC WITH AUTO DIFFERENTIAL STAT 10/25/2024 3:52 PM EST Urinary tract infection with hematuria, site unspecified Vaginal bleeding CBC AND DIFFERENTIAL STAT 10/25/2024 3:52 PM EST Urinary tract infection with hematuria, site unspecified Vaginal bleeding COMPREHENSIVE METABOLIC PANEL STAT 10/25/2024 3:52 PM EST Urinary tract infection with hematuria, site unspecified Vaginal bleeding POC URINE AUTO W/O MICRO Routine 10/25/2024 3:09 PM EST Urinary tract infection with hematuria, site unspecified LIPID PANEL WITH REFLEX TO DIRECT LDL Routine 09/19/2024 11:59 AM EST Benign hypertension Hypercholesterolemi a Prediabetes DEPRESSION SCREENING Routine 07/19/2024 from Last 3 Months or Most Recently Relevant to Health Maintenance Results * External CT Report (01/09/2025 9:27 AM EDT) Only the most recent of2 resultswithin the time period is included. Anatomical Region Laterality Modality Computed Tomogra phy us Historical Provider MD [place] CT PROCEDURES Final R esult * CT Chest wo Contrast (12/08/2024 9:25 AM EST) Anatomical Region Laterality Modality Body Computed Tomogra phy 12/08/2024 2:20 PM EST Impressions 12/08/2024 2:52 PM EST 1. ??Direct comparison of the lung findings is difficult due to motion on the prior studies. ??Overall improvement of the lung aeration. ??No lung consolidations. ??Focal area of tree-in-bud nodularity in the right middle lobe, new from previous examination, likely represents area of inflammatory/infectious process. ??Larger pulmonary nodules are unchanged. 2. ??Interval resolution of pleural effusions. 3. ??No bulky adenopathy. -------- FINAL REPORT -------- Dictated By: Saqib Wiseman Dictated Date: 12/08/2024 14:20 ET Assigned Physician: Saqib Wiseman Reviewed and Electronically Signed By: Saqib Wiseman Signed Date: 12/08/2024 14:52 ET Workstation ID: [id number] Transcribed By: Self Edit Transcribed Date: 12/08/2024 14:20 ET Narrative 12/08/2024 2:[address] CHEST WO CONTRAST TECHNIQUE: Multidetector CT of the chest was performed without intravenous contrast. COMPARISON: Chest CT on November 06, 2024 and November 02, 2024 HISTORY: Abnormal chest CT [facility] 11/02/2024. ??4-week follow-up on acute inflammatory versus infectious processes involving lingula, right middle lobe and lower lung lobes. ??Subcentimeter pulmonary nodules. ??Prominent mediastinal lymph nodes. FINDINGS: Respiratory motion present. Lungs: Respiratory motion limits evaluation of the central airways and small pulmonary nodules. ??No focal consolidation. ??Interval improvement of subsegmental atelectasis in the lingula region. ??Linear scarring in the left lower lobe. ??Groundglass nodule measuring approximately 0.9 cm in the anteromedial aspect of the left upper lobe (2:85) appears similar to prior studies. ??Additional solid pulmonary nodules, for example 0.6 cm in the right middle lobe (2:134) and 0.4 cm in the right middle lobe (2:135) are also unchanged. ??Right lower lobe 0.2 cm nodule (2:144) is difficult to see on the prior studies degraded by motion. ??Confluent tree-in-bud nodularity in the posterolateral aspect of the right middle lobe (2:150) appears new from prior study. Pleura: Interval resolution of previously seen pleural effusions. ??No pneumothorax. Mediastinum: Unchanged right thyroid nodule (3:37). Mild cardiomegaly. No pericardial effusion. ??Scattered calcifications along the nonaneurysmal thoracic aorta. Lymph Nodes: No bulky adenopathy. Upper Abdomen: Vascular calcifications. Chest Wall: No concerning findings. Bones: No acute or suspicious bony findings. Procedure Note Saqib Wiseman MD - 12/08/2024 CT CHEST WO CONTRAST TECHNIQUE: Multidetector CT of the chest was performed without intravenouscontrast. COMPARISON: Chest CT on November 06, 2024 and November 02, 2024 HISTORY: Abnormal chest CT [facility] 11/02/2024. 1-[id number]-cc on acute inflammatory versus infectious processes involvinglingula, right middle lobe and lower lung lobes. Subcentimeter pulmonarynodules. Prominent mediastinal lymph nodes. FINDINGS: Respiratory motion present. Lungs: Respiratory motion limits evaluation of the central airways andsmall pulmonary nodules. No focal consolidation. Interval improvement ofsubsegmental atelectasis in the lingula region. Linear scarring in theleft lower lobe. Groundglass nodule measuring approximately 0.9 cm in theanteromedial aspect of the left upper lobe (2:85) appears similar to priorstudies. Additional solid pulmonary nodules, for example 0.6 cm in theright middle lobe (2:134) and 0.4 cm in the right middle lobe (2:135) arealso unchanged. Right lower lobe 0.2 cm nodule (2:144) is difficult tosee on the prior studies degraded by motion. Confluent [id number]-[id number] in the posterolateral aspect of the right middle lobe (2:150)appears new from prior study. Pleura: Interval resolution of previously seen pleural effusions. Nopneumothorax. Mediastinum: Unchanged right thyroid nodule (3:37). Mild cardiomegaly. Nopericardial effusion. Scattered calcifications along the nonaneurysmalthoracic aorta. Lymph Nodes: No bulky adenopathy. Upper Abdomen: Vascular calcifications. Chest Wall: No concerning findings. Bones: No acute or suspicious bony findings. IMPRESSION: 1. Direct comparison of the lung findings is difficult due to motion onthe prior studies. Overall improvement of the lung aeration. No lungconsolidations. Focal area of tree-in-bud nodularity in the right middlelobe, new from previous examination, likely represents area ofinflammatory/infectious process. Larger pulmonary nodules areunchanged. 2. Interval resolution of pleural effusions. 3. No bulky adenopathy. -------- FINAL REPORT -------- Dictated By: Saqib Wiseman Dictated Date: 12/08/2024 14:20 ET Assigned Physician: Saqib Wiseman Reviewed and Electronically Signed By: Saqib Wiseman Signed Date: 12/08/2024 14:52 ET Workstation ID: [id number] Transcribed By: Self Edit Transcribed Date: 12/08/2024 14:20 ET us Katina MC IMG CT PROCEDURES Final Result * US Guided Fine Ndl Asp 1st Lesion (12/01/2024 9:11 AM EST) Anatomical Region Laterality Modality Ultrasound 12/04/2024 10:5 8 AM EST Narrative 12/04/2024 11:00 AM EST Ultrasound-Guided Fine-Needle Aspiration ?? Thyroid Nodule-ABORTED PROCEDURE HISTORY: Thyroid nodules. TECHNIQUE: Informed consent was obtained from the patient. Potential complications including infection, bleeding and inadequate sample are discussed with the patient. However, no definite thyroid nodule was able to be identified on ultrasound imaging of the right lobe of the thyroid. Therefore, the scheduled procedure was canceled. ??Six-month follow-up thyroid ultrasound was discussed with the patient's daughter. -------- FINAL REPORT -------- Dictated By: Belen Mcnamara Dictated Date: 12/04/2024 10:58 ET Assigned Physician: Belen Mcnamara Reviewed and Electronically Signed By: Belen Mcnamara Signed Date: 12/04/2024 11:00 ET Workstation ID: [id number] Transcribed By: Self Edit Transcribed Date: 12/04/2024 10:58 ET Procedure Note Belen Mcnamara MD - 12/04/2024 Ultrasound-Guided Fine-Needle Aspiration Thyroid Nodule-ABORTEDPROCEDURE HISTORY: Thyroid nodules. TECHNIQUE: Informed consent was obtained from the patient. Potential complications including infection, bleeding and inadequatesample are discussed with the patient. However, no definite thyroid nodule was able to be identified onultrasound imaging of the right lobe of the thyroid. Therefore, the scheduled procedure was canceled. Six-month follow-upthyroid ultrasound was discussed with the patient's daughter. -------- FINAL REPORT -------- Dictated By: Belen Mcnamara Dictated Date: 12/04/2024 10:58 ET Assigned Physician: Belen Mcnamara Reviewed and Electronically Signed By: Belen Mcnamara Signed Date: 12/04/2024 11:00 ET Workstation ID: [id number] Transcribed By: Self Edit Transcribed Date: 12/04/2024 10:58 ET us [facility] IMG US PROCEDURES Final Result * US Head Neck Soft Tissue (11/21/2024 1:54 PM EST) Anatomical Region Laterality Modality Head and Neck Ultrasound 11/21/2024 2:02 PM EST Impressions 11/21/2024 2:13 PM EST Solitary right thyroid nodule measuring up to 1.1 cm. ??Recommend fine-needle aspiration. POS - [id number] -------- FINAL REPORT -------- Dictated By: Candelaria Caballero Dictated Date: 11/21/2024 14:02 ET Assigned Physician: Candelaria Caballero Reviewed and Electronically Signed By: Candelaria Caballero Signed Date: 11/21/2024 14:13 ET Workstation ID: [id number] Transcribed By: Self Edit Transcribed Date: 11/21/2024 14:02 ET Narrative 11/21/2024 2:13 PM EST EXAM: Thyroid ultrasound HISTORY: 1.1 cm right thyroid nodule on outside chest CT. COMPARISON: None FINDINGS: Thyroid gland is not enlarged: right lobe measures 3.5 x 1.4 x 1.3 cm, left lobe measures 3.4 x 0.9 x 0.7, and the isthmus measures 0.2 cm in thickness. ??Thyroid parenchyma appears homogeneous without hypervascularity on color Doppler. 1.1 x 0.7 x 0.5 cm solid isoechoic nodule in the right mid lobe. ??Margins are ill-defined, wider than tall, no echogenic foci. Procedure Note Candelaria Caballero MD - 11/21/2024 EXAM: Thyroid ultrasound HISTORY: 1.1 cm right thyroid nodule on outside chest CT. COMPARISON: None FINDINGS: Thyroid gland is not enlarged: right lobe measures 3.5 x 1.4 x 1.3 cm,left lobe measures 3.4 x 0.9 x 0.7, and the isthmus measures 0.2 cm inthickness. Thyroid parenchyma appears homogeneous withouthypervascularity on color Doppler. 1.1 x 0.7 x 0.5 cm solid isoechoic nodule in the right mid lobe. Marginsare ill-defined, wider than tall, no echogenic foci. IMPRESSION: Solitary right thyroid nodule measuring up to 1.1 cm. Recommendfine-needle aspiration. POS - [id number] -------- FINAL REPORT -------- Dictated By: Candelaria Caballero Dictated Date: 11/21/2024 14:02 ET Assigned Physician: Candelaria Caballero Reviewed and Electronically Signed By: Candelaria Caballero Signed Date: 11/21/2024 14:13 ET Workstation ID: [id number] Transcribed By: Self Edit Transcribed Date: 11/21/2024 14:02 ET us [facility] IM US PROCEDURES Final Result * CBC auto differential (10/25/2024 3:52 PM EST) WBC 9.8 4.8 - 10.8 K/mcL LAB HEMETOLOGY METHOD 10/25/2024 6:16 PM [facility] RBC 4.30 3.80 - 4.80 M/mcL LAB HEMETOLOGY METHOD 10/25/2024 6:16 PM [facility] Hemoglobin 13.0 11.5 - 16.0 g/dL LAB HEMETOLOGY METHOD 10/25/2024 6:16 PM [facility] Hematocrit 40.4 35.0 - 47.0 % LAB HEMETOLOGY METHOD 10/25/2024 6:16 PM [facility] MCV 93.5 79.0 - 98.0 FL LAB HEMETOLOGY METHOD 10/25/2024 6:16 PM [facility] MCH 30.1 27.0 - 32.0 pcg LAB HEMETOLOGY METHOD 10/25/2024 6:16 PM [facility] MCHC 32.2 32.0 - 37.0 g/dL LAB HEMETOLOGY METHOD 10/25/2024 6:16 PM [facility] RDW 13.2 11.0 - 15.0 % LAB HEMETOLOGY METHOD 10/25/2024 6:16 PM [facility] Platelets 280 130 - 400 K/mcL LAB HEMETOLOGY METHOD 10/25/2024 6:16 PM [facility] MPV 10.9 7.0 - 11.0 FL LAB HEMETOLOGY METHOD 10/25/2024 6:16 PM [facility] NRBC 0.0 <1.0 % LAB HEMETOLOGY METHOD 10/25/2024 6:16 PM [facility] NRBC Absolute 0.00 <0.10 K/mcL LAB HEMETOLOGY METHOD 10/25/2024 6:16 PM [facility] Neutrophils Relative 61.6 % LAB HEMETOLOGY METHOD 10/25/2024 6:16 PM [facility] Lymphocytes Relative 26.2 % LAB HEMETOLOGY METHOD 10/25/2024 6:16 PM [facility] Monocytes Relative 7.7 % LAB HEMETOLOGY METHOD 10/25/2024 6:16 PM [facility] Eosinophils Relative 3.5 % LAB HEMETOLOGY METHOD 10/25/2024 6:16 PM [facility] Basophils Relative 0.7 % LAB HEMETOLOGY METHOD 10/25/2024 6:16 PM [facility] Immature Granulocytes Relative 0.3 % LAB HEMETOLOGY METHOD 10/25/2024 6:16 PM EST [facility] Neutrophils Absolute 6.04 1.50 - 7.00 K/mcL LAB HEMETOLOGY METHOD 10/25/2024 6:16 PM EST [facility] Lymphocytes Absolute 2.57 1.00 - 5.00 K/mcL LAB HEMETOLOGY METHOD 10/25/2024 6:16 PM [facility] Monocytes Absolute 0.75 0.20 - 1.00 K/mcL LAB HEMETOLOGY METHOD 10/25/2024 6:16 PM [facility] Eosinophils Absolute 0.34 0.00 - 0.50 K/[facility] LAB HEMETOLOGY METHOD 10/25/2024 6:16 PM [facility] Basophils Absolute 0.07 0.00 - 0.20 K/mcL LAB HEMETOLOGY METHOD 10/25/2024 6:16 PM [facility] Immature Granulocytes Absolute 0.03 0.00 - 0.03 K/[facility] LAB HEMETOLOGY METHOD 10/25/2024 6:16 PM [facility] Blood Venous blood specimen / Unknown Venipuncture / Unknown 10/25/2024 3:52 PM EST 10/25/2024 3:52 PM EST us [facility] LAB BLOOD ORDERABLES Final Resul t [facility] [address] [place] [address], * (ABNORMAL) Comprehensive metabolic panel (10/25/2024 3:52 PM EST) Sodium 136 133 - 145 mmol/L LAB CHEMISTRY METHOD 10/25/2024 6:21 PM EST [facility] Potassium 4.4 3.5 - 5.5 mmol/L LAB CHEMISTRY METHOD 10/25/2024 6:21 PM EST [facility] Chloride 106 96 - 110 mmol/L LAB CHEMISTRY METHOD 10/25/2024 6:21 PM [facility] CO2 24 21 - 32 mmol/L LAB CHEMISTRY METHOD 10/25/2024 6:21 PM [facility] Anion Gap 6 3 - 11 LAB CHEMISTRY METHOD 10/25/2024 6:21 PM [facility] Glucose 108(H) 70 - 100 mg/dL LAB CHEMISTRY METHOD 10/25/2024 6:21 PM [facility] BUN 24 5 - 25 mg/dL LAB CHEMISTRY METHOD 10/25/2024 6:21 PM [facility] Creatinine 1.04 0.50 - 1.10 mg/dL LAB CHEMISTRY METHOD 10/25/2024 6:21 PM [facility] eGFR 53(L) >=60 mL/min/1. 73m2 LAB CHEMISTRY METHOD 10/25/2024 6:21 PM [facility] Comment:Calculation based on the??Chronic Kidney Disease Epidemiology Collaboration (CKD-EPI) equation refit??without adjustment for race. BUN/Creatinine Ratio 23.1 LAB CHEMISTRY METHOD 10/25/2024 6:21 PM [facility] Calcium 9.8 8.5 - 10.5 mg/dL LAB CHEMISTRY METHOD 10/25/2024 6:21 PM [facility] AST (SGOT) 26 10 - 42 unit/L LAB CHEMISTRY METHOD 10/25/2024 6:21 PM [facility] ALT (SGPT) 25 10 - 60 unit/L LAB CHEMISTRY METHOD 10/25/2024 6:21 PM [facility] Alkaline Phosphatase 111 42 - 121 unit/L LAB CHEMISTRY METHOD 10/25/2024 6:21 PM [facility] Total Protein 7.7 6.0 - 8.0 g/dL LAB CHEMISTRY METHOD 10/25/2024 6:21 PM [facility] Albumin 4.2 3.2 - 5.0 g/dL LAB CHEMISTRY METHOD 10/25/2024 6:21 PM EST [facility] Total Bilirubin 0.5 0.0 - 1.4 mg/dL LAB CHEMISTRY METHOD 10/25/2024 6:21 PM EST [facility] Blood Venous blood specimen / Unknown Venipuncture / Unknown 10/25/2024 3:52 PM EST 10/25/2024 3:52 PM EST [facility] LAB BLOOD ORDERABLES Final Resul t [facility] [address] [place] [address], [place] [phone] * (ABNORMAL) POC Urine Auto W/O Micro (10/25/2024 3:09 PM EST) Leukocytes UA POC Positive(A) Negative Nitrite UA POC Negative Negative Urobilinogen UA POC Negative Negative Protein UA POC Negative Negative PH UA POC 6.0 5.0 - 9.0 Blood UA POC Positive(A) Negative, Trace Specific [place] UA POC 1.010 1.001 - 1.035 Ketones UA POC 3+(A) Negative Bilirubin UA POC Negative Negative Glucose UA POC Normal Normal, Trace Urine Urine specimen obtained by clean catch procedure / Unknown 10/25/2024 3:09 PM EST [facility] POINT OF CARE TEST ENTER/EDIT OR DERABLES Final Result * (ABNORMAL) Lipid panel with reflex to direct LDL (09/19/2024 11:59 AM EST) Cholesterol 228(H) 0 - 200 mg/dL LAB CHEMISTRY METHOD 09/19/2024 2:37 PM EST [facility] Triglycerides 200(H) 0 - 150 mg/dL LAB CHEMISTRY METHOD 09/19/2024 2:37 PM EST [facility] HDL 50 >=40 mg/dL LAB CHEMISTRY METHOD 09/19/2024 2:37 PM EST [facility] LDL Calculated 138(H) 0 - 100 mg/dL LAB CHEMISTRY METHOD 09/19/2024 2:37 PM EST [facility] VLDL Cholesterol Edmundo 40 mg/dL LAB CHEMISTRY METHOD 09/19/2024 2:37 PM EST [facility] Non HDL Chol. (LDL+VLDL) 178(H) <145 mg/dL LAB CHEMISTRY METHOD 09/19/2024 2:37 PM [facility] Chol/HDL Ratio 4.6(H) 0.0 - 4.4 LAB CHEMISTRY METHOD 09/19/2024 2:37 PM [facility] Blood Venous blood specimen / Unknown Venipuncture / Unknown 09/19/2024 11:59 AM EST 09/19/2024 11:59 AM EST [facility] LAB BLOOD ORDERABLES Final Resu lt [facility] [address] [place] [address], [place] [phone] * Depression Screening (07/19/2024) [facility] Depression Screening Abstracted Historical Provider HEALTH MAINTENANCE Final Result from Last 3 Months or Most Recently Relevant to Health Maintenance Insurance MEDICARE [place] - [place] [facility] Care Teams Therapy Administrative Assistant Relationship Specialty Start Date End Date Jonna Nieto MD [address] [place] [phone] PCP - General Internal Medicine 07/13/22
--- OUTSIDE RECORDS SUMMARY | 2025-01-23 16:39 | XMS_ITS ---
Author Organization [facility] Address [address] [place] [address] Care Team Providers Care Distribution Coordinator Name Role Phone Jonna Childress Primary Care Provider Unamarcia ilable Black, Mari Unavailable [phone] Allergies Allergen (clinical drug ingredient) Drug/Non Drug Allergy documented on EMR Reaction Allergy Type Onset Date Status amoxicillin Amoxicillin hives Drug Allergy Act shira Lamisil rash Drug Allergy Active acetaminophen / oxycodone Percocet Unknown Drug Allergy Active REASON FOR VISIT Painful Nail(s) aggrevated by shoes and causing difficulty standing/walking., Ingrown Nail Medications Medication SIG (Take, Route, Frequency, Duration) Notes Start Date End Date Status Metamucil Not-Taking Colestipol HCl Not-T aking Ciclopirox Olamine N ot-Taking Nifediac CC 60 MG Orally No t-Taking Ciclopirox Olamine 0.77% external Apply to effected areas twice a day for 30 days 06/17/2015 Not-Taking NIFEdipine 60 MG Orally Not -Taking Clotrimazole-Betamethasone 1-0.05 % 1 application Externally Twice a day for 30 days 12/10/2022 Not-Taking Physical Therapy . . . 2-3x/week for 3- 4 weeks 03/08/2023 Not-Taking Loprox 0.77 % 1 application Externally Twice a day 05/05/2021 Not-Takin g immodium Not-Taking Fiber Not-Taking Mometasone Furoate N ot-Taking Lotrimin AF Not-Taki ng Atenolol 100 MG Orally Not- Taking Ciclopirox 0.77 % 1 application to affected area Externally Twice a day for 30 days 03/29/2017 Not-Taking Atorvastatin Calcium 80 MG 1 tablet Oral ly Once a day for 30 day(s) Not-Taking Metoprolol Succinate ER 50 MG 1 tablet Orally Once a day Active traZODone HCl 50 MG 1 tablet at bedtime as needed Orally Once a day for 30 day(s) Not-Taking Sulfamethoxazole-Trimethop rim 800-160 MG 1 tablet Orally Three times a Week for 10 day(s) Not-Taking Sulfamethoxazole-Trimethop rim 800-160 MG 1 tablet Orally Three times a Week for 10 day(s) Not-Taking Hydrocortisone PRN Activ e Probiotic Active Centrum Silver Not-T aking Losartan Potassium 50 MG 1 tablet Orally Once a day Active Tylenol prn Active Eliquis 5 MG 1 tablet Orally Twic e a day for 30 day(s) Active amLODIPine Besylate 5 MG 1 tablet Orally Once a day for 30 day(s) Active Melatonin 3 MG 1 tablet at bedtime as needed Orally Once a day for 30 day(s) Active Ketoconazole 2 % 1 application Externally Once a day for 14 day(s) PNR Active Cranberry 450 MG as directed Orally Active Zinc Gluconate 50 MG 1 tablet Orally Onc e a day for 30 day(s) Active Potassium Chloride A ctive Pantoprazole Sodium 40 MG 1 tablet Orall y Once a day for 30 day(s) Active Nystatin Active Multivitamin Not-Edson ing Gabapentin Active Social History Tobacco Use: Social History Observation Description Date Details (start date - stop date) Former Smoker NA - NA Tobacco use other than smoking: Question Answer Notes Are you an other tobacco user? No Tobacco Control (Standard) Question Answer Notes Tobacco use: Former smoker Additional Findings: Tobacco non-user Ex-cigaret te smoker AUDIT-C (Standard) Question Answer Notes Did you have a drink containing alcohol in the p ast year? No Points 0 Interpretation Negative Vital Signs Height 5 ft 3 in in 09/07/2024 Weight 163 lbs 09/07/2024 BMI 28.87 kg/m2 09/07/2024 Procedures Procedure Date Ordered Date Performed Result Body Sit e 04125-NAPEJTX NAIL, 6 OR MORE 09/07/2024 N/A 72649-Iyvyyhsn Plate 09/07/2024 N/A Encounters Encounter Location Date Provider Diagnosis [facility] [address] [address] 09/07/2024 Mari Chowdhury Tinea unguium B35.1 ; Ingrown nail L60.0 ; Pain in right toe(s) M79.674 and Pain in left toe(s) M79.675 Assessments Encounter Date Diagnosis (ICD Code) Assessment Notes Treatment Notes Treatment Clinical Notes Section Notes 09/07/2024 Tinea unguium (ICD-10 - B35.1) 09/07/2024 Ingrown nail (ICD-10 - L60.0) 09/07/2024 Pain in right toe(s) (ICD-10 - M79.674) 09/07/2024 Pain in left toe(s) (ICD-10 - M79.675) Plan Of Treatment Pending Test Test Name Order Date [id number] NAIL, 6 OR MORE 09/07/2024 98056-Whnurisa Plate 09/07/2024 Next Appt Details Follow Up: 2 Weeks,prn, Reas on: Provider Name:Mari Chowdhury , 05/10/2025 11:30:00 AM, [address] [place] [address], [phone], Procedure Notes * Category Sub-Category Detail Notes Nail Avulsion Procedure A fine sterile e levator was placed between the eponychium, nail fold, and nail plate to separate the structures. A sterile nail splitter, and/or sterile 316 blade, was then used to longitudinally section the nail along its entire length through the eponychium to the area under the nail fold. The offending portion of nail was from the nail bed with a rolling action and then removed with a hemostat. No underlying bone was identified. There was minimal bleeding as hemostasis was achieved through the temporary use of either a digital tourniquet or the aforementioned local with epinephrine. A bacitracin sterile dressing was applied. Local wound aftercare instructions were discussed and dispensed. The patient was informed of both conservative and future surgical procedures to prevent recurrence. Tylenol or Motrin was recommended for pain or discomfort (31319), Pt DEFERS matricectomy Anesthesia , was accomplished T OPICALLY with Lidocaine Hydrochloride Jelly 2 percent Location , Lateral nail borde r, T5 Debride Nail 6-10 Nail debridement Nail debridem ent performed extensively to reduce/remove overall nail length and girth, subungual debris, and necrotic tissue, by manual and electrical means with use of a nail nipper and/or dremel, to more viable healthy nail plate or bed tissue 6-10. Silver nitrate used for any petechial bleeding as necessary. Patient chooses, to continue use of a topical antifungal, (45477) Progress Notes * Cande [birth year]DOB:[birth year] (84 yo F)Acc No.[id number]:09/07/2024 Progress Note Patient:?Cande MARX Provider:?Mari Chowdhury DPM :1940???Age:84 Y???Sex:Female D ate:09/07/2024 Address:[address] [place], [place] [id number] Pcp:Jonna Childress Subjective: * Chief Complaints: * ???Painful Nail(s) aggrevate d by shoes and causing difficulty standing/walking.Ingrown Nail * HPI: ???Painful Nails:?Pt States Last PCP Visit:?Date:?08/03/2024 * ROS:?General/Constitutional:?Nausea?denies.?Vomiting?denies.?Hunger Thirst?denies.?Loss appetite?denies.?Chills?denies.?Fatigue?denies.?Fever?denies.?Night Sweats?denies.?Unexplained weight loss?denies.?Ophthalmologic:?Blurred [...] of neck 08/2024 * Hospitalization/Major Diagno stic Procedure:[place] Di[place] [place] pain couldn't walk 08[place]20[place] [place] 12/09/23-[place]- Leak and GI Infection 11/06/23 - Stroke 08/09 * Family History:?Mother: dece ased, kidney failure, diagnosed with Other malignant neoplasm of unspecified site.?Father: , diagnosed with Other malignant neoplasm of unspecified site.? * Social History:?Tobacco Use:?Tobacco use other than smoking?Are you an other tobacco user??No ?Tobacco Control (Standard)?Tobacco use:?Former smoker ?Additional Findings: Tobacco non-user?Ex-cigarette smoker ???Drugs/Alcohol:?Drugs?Have you used drugs other than those for medical reasons in the past 12 months??No ???Miscellaneous:?Caffeine: yes, frequency: tea, gingerale, 2-3 cups per day. ?Children: yes. ?Exercise: yes, walking, PT. ?Marital status: . 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 ???Drug/Alcohol:?AUDIT-C (Standard)?Did you have a drink containing alcohol in the past year??No ?Points?0 ?Interpretation?Negative * Medications:?TakingGabapenti n Zinc Gluconate 50 MG Tablet 1 tablet Orally Once a day Potassium Chloride Pantoprazole Sodium 40 MG Tablet [...] Orally Once a day Taking Gabapentin Taking Zinc Gluconate 50 MG Tablet 1 tablet Orally Once a day Taking Potassium Chloride Taking Pantoprazole Sodium 40 [...] Hour 1 tablet Orally Once a day Not-Taking/PRNMultivitamin Centrum Silver traZODone HCl 50 MG Tablet [...] List reviewed and reconciled with the patientNot-Taking/PRN Multivitamin Not-Taking/PRN Centrum Silver Not-Taking/PRN traZODone HCl 50 MG [...] NIFEdipine 60 MG Tablet Extended Release Orally Not- Taking/PRN Clotrimazole-Betamethasone 1-0.05 % Cream 1 application Externally [...] Vitals:?Ht: 5 ft 3 in, Wt: 1 63, BMI: 28.87, Shoe size: 8, Wt-k.94 kg. * Examination: ???General Examination: ?GENERAL APPEARANCE:?Reveals a pleasant, alert, well nourished, well- developed, well hydrated individual, who demonstrates proper attention to hygiene/body habitus, and is in no acute distress, Pt serves as own historian for office visit today.?ORIENTED:?person, place, and time.?Nails: ?NAILS are:?elongated,overgrown,dystrophic,greater than 3mm thick,discolored and friable with crumbly malodorous subungual debris, with pain on palpation, , 1-5 Left foot , 2-5 Right foot.?Ingrown Nail: ?INSPECTION:?Reveals nail incurvation, pain on palpation, groove hypertrophy, groove ischemia, Lateral nail border, T5.?Vascular: ?DP PULSES(B):?3/4, B/L.?PT PULSES(B):?3/4, B/L.?CAPILLARY FILL TIME:?immediate, all digits, B/L.?TROPHIC CONDITION-TEXTURE/ELASTICITY/TURGOR/HAIR GROWTH(B):?normal, B/L.? Assessment: * Assessment: 1.?Tinea unguium - B35.1???2 .?Ingrown nail - L60.0 (Primary)???3.?Pain in right toe(s) - M79.674???4.?Pain in left toe(s) - M79.675??? Plan: * Treatment: 2.?Tinea unguium?Procedure: 75043-XNOANKC NAIL, 6 OR MORE * Procedures:?Debride Nail 6-10:?Nail debridement?Nail debridement performed extensively to reduce/remove overall nail length and girth, subungual debris, and necrotic tissue, by manual and electrical means with use of a nail nipper and/or dremel, to more viable healthy nail plate or bed tissue 6-10. Silver nitrate used for any petechial bleeding as necessary. Patient chooses, to continue use of a topical antifungal, (06433).?Nail Avulsion:?Location?, Lateral nail border, T5.?Anesthesia?, was accomplished TOPICALLY with Lidocaine Hydrochloride Jelly 2 percent.?Procedure?A fine sterile elevator was placed between the eponychium, nail fold, and nail plate to separate the structures. A sterile nail splitter, and/or sterile 316 blade, was then used to longitudinally section the nail along its entire length through the eponychium to the area under the nail fold. The offending portion of nail was from the nail bed with a rolling action and then removed with a hemostat. No underlying bone was identified. There was minimal bleeding as hemostasis was achieved through the temporary use of either a digital tourniquet or the aforementioned local with epinephrine. A bacitracin sterile dressing was applied. Local wound aftercare instructions were discussed and dispensed. The patient was informed of both conservative and future surgical procedures to prevent recurrence. Tylenol or Motrin was recommended for pain or discomfort (97865), Pt DEFERS matricectomy.? * Procedure Codes:?30217 DEBRI DE NAIL, 6 OR MORE, Modifiers: XS 40784 Avulsion Plate, Modifiers: T5 * Follow Up:?2 Weeks,prn * Images: * Sign off status: Completed true * Provider:?Mari Chowdhury DPM Date:?2023 Generated for Autumn patel/Samuel/Pelon on:?01/23/2025 04:39 PM EDT History and Physical Notes * HPI (History of Present Illness) Category Sub-Category Detail Notes Category Not es Painful Nails Pt States Last PCP Visit: Date:: 08/03/2024 Examination Category Sub-Category Detail Notes Category Not es Ingrown Nail INSPECTION: Reveals nail inc urvation, pain on palpation, groove hypertrophy, groove ischemia, Lateral nail border, T5 Dermatologic VERRUCA: General Examination GENERAL APPEARANCE: Reveals [...] subungual debris, with pain on palpation, , 1-5 Left foot , 2-5 Right foot
--- OUTSIDE RECORDS SUMMARY | 2025-01-23 16:39 | XMS_ITS | Encounter Summary ---
Author Organization [facility] Address [address] [place] [address] Care Team Providers Care Skin Tanner Name Role Phone Jonna Nieto MD Primary Care Prov ider Reason for Visit * Reason Comments [facility] Encounter Details Date Type Department Care Team (Late st Contact Info) Description 12/07/2024 Billing Patient Not Present Adult Medicine [address] [phone] Jonna Nieto MD [address] [place] [id number] Aspiration pneumonia, unspecified aspiration pneumonia type, unspecified [...] of skin; Gastroesophageal reflux disease without esophagitis Social History Tobacco Use Types Packs/Day Years [...] for your loved ones. For example, child welfare manager or elderly care for an older adult? [...] 02/16/2025 10:50 AM EDT Consult Pulmonolgy - [place] [address] [place] [address] Rosario Uribe NP [address] [place] [address] documented as of this encounter Visit Diagnoses Diagnosis Aspiration pneumonia, unspecified aspiration pneumonia type, unspecified laterality, unspecified part of lung (CMS/HCC)- Primary Hemiplegia and hemiparesis following cerebral infarction affecting right dominant side (CMS/HCC) Persistent atrial fibrillation (CMS/HCC) Atrial fibrillation Benign essential hypertension Essential hypertension, benign Venous insufficiency (chronic) (peripheral) Unspecified venous (peripheral) insufficiency Osteoarthritis of hip, unspecified laterality, unspecified osteoarthritis type History of falling Personal history of urinary (tract) infections Personal history of malignant melanoma of skin Gastroesophageal reflux disease without esophagitis Esophageal reflux documented in this encounter Additional Health Concerns Assessment Noted Time A fall risk assessment has been complete d for the patient 10/25/2024 2:40 PM EST documented as of this encounter Care Teams Skin Tanner Relationship Specialty Start Date End Date Jonna Nieto MD [address] [place] [address] PCP - General Internal Medicine 07/13/22 documented as of this encounter
== END 2025-01-23 14:55 | disposition home or self-care (01) ==
LOC: HO.HSMS 13:40
PROVIDERS: Visit Provider Nurse Practitioner Family
DX: G62.9 Polyneuropathy, unspecified (principal); Z86.73 Personal history of transient ischemic attack (TIA), and cerebral infarction without residual deficits; R20.2 Paresthesia of skin
CPT/HCPCS: 99214

== ENCOUNTER 2025-01-23 13:40 | Outpatient (REF) | payer MEDICARE, SELFPAY ==
--- OUTSIDE RECORDS SUMMARY | 2025-01-23 18:05 | XMS_ITS | Patient Health Record ---
[facility] Address [address] [place] [address] Care Team Providers Care Interstate Bus Dispatcher Name Role Phone Jonna Childress Primary Care Provider Unava ilable Black, Mari Unavailable [phone] Allergies Allergen (clinical drug ingredient) Drug/Non Drug Allergy documented on EMR Reaction Allergy Type Onset Date Status amoxicillin Amoxicillin hives Drug Allergy Act shira Lamisil rash Drug Allergy Active acetaminophen / oxycodone Percocet Unknown Drug Allergy Active Reason For Referral No Information Medications Medication SIG (Take, Route, Frequency, Duration) Notes Start Date End Date Status amLODIPine Besylate 5 MG 1 tablet Orally Once a day for 30 day(s) Active Metamucil Not-Taking Hydrocortisone PRN Activ e Probiotic Active Melatonin 3 MG 1 tablet at bedtime as needed Orally Once a day for 30 day(s) Active Clotrimazole-Betamethasone 1-0.05 % 1 application Externally Twice a day for 30 days 12/10/2022 Not-Taking Ketoconazole 2 % 1 application Externally Once a day for 14 day(s) PNR Active Physical Therapy . . . 2-3x/week for 3- 4 weeks 03/08/2023 Not-Taking Cranberry 450 MG as directed Orally Active Loprox 0.77 % 1 application Externally Twice a day 05/05/2021 Not-Takin g Eliquis 5 MG 1 tablet Orally Twic e a day for 30 day(s) Active immodium Not-Taking Lotrimin AF Not-Taki ng Potassium Chloride A ctive Atenolol 100 MG Orally Not- Taking Pantoprazole Sodium 40 MG 1 tablet Orall y Once a day for 30 day(s) Active Ciclopirox 0.77 % 1 application to affected area Externally Twice a day for 30 days 03/29/2017 Not-Taking Nystatin Active NIFEdipine 60 MG Orally Not -Taking Mometasone Furoate N ot-Taking Atorvastatin Calcium 80 MG 1 tablet Oral ly Once a day for 30 day(s) Not-Taking Fiber Not-Taking Gabapentin Active Zinc Gluconate 50 MG 1 tablet Orally Onc e a day for 30 day(s) Not-Taking Centrum Silver Not-T aking traZODone HCl 50 MG 1 tablet at bedtime as needed Orally Once a day for 30 day(s) Not-Taking Sulfamethoxazole-Trimethop rim 800-160 MG 1 tablet Orally Three times a Week for 10 day(s) Not-Taking Sulfamethoxazole-Trimethop rim 800-160 MG 1 tablet Orally Three times a Week for 10 day(s) Not-Taking Losartan Potassium 50 MG 1 tablet Orally Once a day Active Nifediac CC 60 MG Orally No t-Taking Tylenol prn Active Ciclopirox Olamine 0.77% external Apply to effected areas twice a day for 30 days 06/17/2015 Not-Taking Metoprolol Succinate ER 50 MG 1 tablet Orally Once a day Active Multivitamin Not-Edson ing Colestipol HCl Not-T aking Ciclopirox Olamine N ot-Taking Immunizations Vaccine Route Administration Date Status Comme nts COVID-19 Pfizer BioNT[employer] Vaccine Unknown 01/14/2021 Administered First Dose:12/24/2020 Second Dose: 01/14/2021 Social History Tobacco Use: Social History Observation [...] ast year? 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) Active confirmed Problem 502622508 Equinus contracture of ankle (M24.573) Active confirmed Problem 22997494 Venous insufficiency (I87.2) Active confirmed Problem 8454807782401894 Equinus deformity of left foot (M21.6X2) Active confirmed Problem 3445863987877651 Equinus deformity of right foot (M21.6X1) Active confirmed Vital Signs Blood pressure diastolic 75 mm Hg 01/04/2025 Height 5 ft 3 in in 01/04/2025 Blood pressure systolic 135 mm Hg 01/04/2025 Weight 153 lbs 01/04/2025 BMI 27.1 kg/m2 01/04/2025 Procedures Procedure Date Ordered Date Performed Result Body Sit e 19102-MIOOFUD NAIL, 6 OR MORE 04/06/2024 N/A 62356-SYFKGKD NAIL, 6 OR MORE 09/07/2024 N/A 42001-Gfkuycmm Plate 09/07/2024 N/A 39111-CSCYVSO NAIL, 6 OR MORE 01/04/2025 N/A Encounters Encounter Location Date Provider Diagnosis [address] [address] 04/06/2024 Mari Black Tinea unguium B35.1 ; Pain in right toe(s) M79.674 and Pain in left toe(s) M79.[address] [address] 09/07/2024 Mari Black Tinea unguium B35.1 ; Ingrown nail L60.0 ; Pain in right toe(s) M79.674 and Pain in left toe(s) M79.[address] [address] 01/04/2025 Mari Black Tinea unguium B35.1 ; Neuropathy G62.9 ; Pain in right toe(s) M79.674 ; Pain in left toe(s) M79.675 ; Neuritis M79.2 ; 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 ; Pain in left foot M79.672 and Pain in right foot M79.671 Assessments Encounter Date Diagnosis (ICD Code) Assessment Notes Treatment Notes Treatment Clinical Notes Section Notes 04/06/2024 Tinea unguium (ICD-10 - B35.1) 04/06/2024 Pain in right toe(s) (ICD-10 - M79.674) 09/07/2024 Tinea unguium (ICD-10 - B35.1) 09/07/2024 Ingrown nail (ICD-10 - L60.0) 01/04/2025 Tinea unguium (ICD-10 - B35.1) 01/04/2025 Neuropathy (ICD-10 - G62.9) 01/04/2025 Pain in right toe(s) (ICD-10 - M79.674) 09/07/2024 Pain in right toe(s) (ICD-10 - M79.674) 04/06/2024 Pain in left toe(s) (ICD-10 - M79.675) 09/07/2024 Pain in left toe(s) (ICD-10 - M79.675) 01/04/2025 Pain in left toe(s) (ICD-10 - M79.675) 01/04/2025 Neuritis (ICD-10 - M79.2) 01/04/2025 Neurapraxia of lower extremity (ICD-10 - S84.90XA) 01/04/2025 Pain in left foot (ICD-10 - M79.672) 01/04/2025 Pain in right foot (ICD-10 - M79.671) Plan Of Treatment Pending Test Test Name Order Date 71253-IXDXMZD NAIL, 6 OR MORE 08/12/2011 05753-XPNHEYE NAIL, 6 OR MORE 11/11/2011 84734-NJKRCED NAIL, 6 OR MORE 02/10/2012 17377-IFQXMKE NAIL, 6 OR MORE 05/16/2012 42491-QUYDCTZ NAIL, 6 OR MORE 08/17/2012 41968-VSXICFX NAIL, 6 OR MORE 11/16/2012 42344-GDWNBDD NAIL, 6 OR MORE 02/13/2013 15390-XGCVTLZ NAIL, 6 OR MORE 05/17/2013 28675-RUYMVJY NAIL, 6 OR MORE 11/13/2013 52577-UCCOLSE NAIL, 6 OR MORE 02/14/2014 13002-ROZKIRX NAIL, 6 OR MORE 05/21/2014 43324-YESXZTL NAIL, 6 OR MORE 08/09/2013 67018-YGEWXMK NAIL, 6 OR MORE 08/27/2014 72833-PMIEGSZ NAIL, 6 OR MORE 11/21/2014 39246-GTXKJEV NAIL, 6 OR MORE 02/20/2015 32133-NQQIDLQ NAIL, 6 OR MORE 05/22/2015 24399-RYFFMXJ NAIL, 6 OR MORE 08/26/2015 93880-GKFCFWM NAIL, 6 OR MORE 11/25/2015 49122-PYYKXHB NAIL, 6 OR MORE 02/24/2016 23216-VOPHHKI NAIL, 6 OR MORE 05/25/2016 09728-UKDYQDX NAIL, 6 OR MORE 08/24/2016 43561-ZGHRIYR NAIL, 6 OR MORE 11/23/2016 97969-XAUOFLM NAIL, 6 OR MORE 02/22/2017 92087-EIPZVTG NAIL, 6 OR MORE 05/27/2017 16324-QSBHOUS NAIL, 6 OR MORE 08/26/2017 81640-TCVDQWP NAIL, 6 OR MORE 11/25/2017 26876-EUMASLN NAIL, 6 OR MORE 02/28/2018 10861-YSBWJAK NAIL, 6 OR MORE 05/30/2018 60750-MAKIAOT NAIL, 6 OR MORE 08/29/2018 27224-XKBDXDN NAIL, 6 OR MORE 11/28/2018 80484-IRCHNEC NAIL, 6 OR MORE 02/27/2019 41222-FQBYEFL NAIL, 6 OR MORE 05/29/2019 99905-HSYOTUE NAIL, 6 OR MORE 09/25/2019 74038-SXPPTGE NAIL, 6 OR MORE 12/25/2019 11120-YMKMYVJ NAIL, 6 OR MORE 04/01/2020 70684-OMVLOTE NAIL, 6 OR MORE 07/08/2020 17141-CTCHJNS NAIL, 6 OR MORE 10/07/2020 86674-SMUOSHF NAIL, 6 OR MORE 02/03/2021 51513-PKTBOUD NAIL, 6 OR MORE 05/05/2021 34229-YTBVAAP NAIL, 6 OR MORE 11/24/2021 89957-CNDRMDW NAIL, 6 OR MORE 03/02/2022 91042-OCWYLNY NAIL, 6 OR MORE 08/11/2021 57153-TPJUWZL NAIL, 6 OR MORE 06/04/2022 75490-BCWABFV NAIL, 6 OR MORE 09/03/2022 77551-JNNWRPN NAIL, 6 OR MORE 12/10/2022 18035-SVAGLAP NAIL, 6 OR MORE 03/08/2023 35214-HIVPDNU NAIL, 6 OR MORE 06/07/2023 38703-PKORXDI NAIL, 6 OR MORE 12/27/2023 55855-ISIUZQN NAIL, 6 OR MORE 04/06/2024 48070-PJPWGBJ NAIL, 6 OR MORE 09/07/2024 22317-HKKCSCS NAIL, 6 OR MORE 01/04/2025 88227-Hoog Destruction, 1-14 06/07/2023 26367-Bzkn Destruction, -14 11/24/2021 41642-Gkgy Destruction, -14 03/08/2023 38742-Xlfr Destruction, -14 12/10/2022 10683-Esvc Destruction, -14 09/03/2022 33101-Cpfb Destruction, -14 03/02/2022 98644-Llzh Destruction, -14 06/04/2022 36943-Uakb Destruction, -14 08/11/2021 27587-Dmvd Destruction, -14 05/05/2021 79286-Oawv Destruction, -14 02/03/2021 12086-Qxvh Destruction, -14 07/08/2020 01391-Dqfe Destruction, -14 10/07/2020 65618-Mqse Destruction, -14 04/01/2020 28486-Skpy Destruction, -14 09/25/2019 98072-Xhql Destruction, -14 08/26/2017 33832-Uthz Destruction, -14 05/29/2019 79841-Cfog Destruction, -14 02/27/2019 38547-Qwjf Destruction, -14 11/28/2018 02086-Yryr Destruction, -14 08/29/2018 11467-Ndpp Destruction, 10-3105/30/2018 86467-Utml Destruction, 10-3102/28/2018 85869-Bpxu Destruction, 10-3111/25/2017 07283-Ihhs Destruction, 10-3105/27/2017 04311-Qket Destruction, 10-3111/23/2016 59139-Czni Destruction, 10-3108/24/2016 99283-Naoz Destruction, 10-3105/25/2016 33482-Agut Destruction, 10-3102/24/2016 36509-Vogz Destruction, 10-3111/25/2015 83185-Aftt Destruction, 10-3102/13/2013 34806-Stcy Destruction, 10-3105/17/2013 34090-Cckl Destruction, 10-3111/16/2012 91314-Qzsv Destruction, 10-3108/17/2012 46347-Ahrt Destruction, 10-3105/16/2012 05112-Zfvg Destruction, 10-3102/10/2012 69514-Vlpk Destruction, 10-3111/11/2011 72945-Yodj Destruction, 10-3108/12/2011 36809-Yqiicggg Plate 05/16/2012 75678-Qqwyzqbd Plate 05/17/2013 56045-Fyrhdrot Plate 02/13/2013 43465-Imwinyje Plate 02/20/2015 56404-Ifypghps Plate 08/27/2014 23774-Nedectod Plate 05/21/2014 68575-Cqojrlzk Plate 02/14/2014 03929-Oxbihjwd Plate 05/22/2015 86250-Qkwjezgn Plate 11/23/2016 32838-Vsvccjcg Plate 08/26/2017 67373-Fxhmttce Plate 05/29/2019 72806-Esjjkmrl Plate 07/08/2020 85903-Qvbwulne Plate 05/05/2021 71187-Mucoalhj Plate 12/27/2023 51508-Gmbeqhnm Plate 09/07/2024 23290-Mjtqpvei Plate Each Additional 90991-Zqtomwrp Plate Each Additional 14013-Bqneryeg Plate Each Additional 01/2014 86976-Exzshqhi Plate Each Additional 03/2015 95338- Debride <25 sq cm 08/09/2013 34177- Debride <25 sq cm 05/21/2014 51571- Debride <25 sq cm 12/25/2019 17049 I&D ABSCESS- SIMPLE,SINGLE 022 87510 I&D ABSCESS- SIMPLE,SINGLE 015 09548 I&D ABSCESS- SIMPLE,SINGLE 015 Next Appt Details Provider Name:Mari Chowdhury , 05/10/2025 11:30:00 AM, [address] [place], [address], Insurance Providers Payer Name Payer Address Payer Phone Subscriber Number Group Number Insured Name Patient Relationship to Insured Coverage Start Date Coverage End Date Medicare National [facility] [employer] [address] [place] [address] [id number] Cande Marx Self - patient is the insured [employer] [address] [place] [address] [phone] [id number] Cande Marx Self - patient is the insured Medical (General) History Medical History History ICD Code transfusions hypertension chicken pox Stroke Surgical History Surgery Date(Month/Year) appendectomy 1960 breast surgery 1967 cholecystectomy 1969 basal cell removal forehead and right le g 07/2015 biopsy of neck 08/2024 Hospitalization History Reason Date(Month/Year) [place]- ER- Diarrhea 06/2018 [facility] - Stroke 08/09 [facility]- Leak and GI Infection 11/06/23 [facility]- GI Infection 12/09/23-12/16/23 [facility] Er- right knee pain couldn't walk
--- OUTSIDE RECORDS SUMMARY | 2025-01-23 18:05 | XMS_ITS | Encounter Summary ---
Author Organization [facility] Address [address] [place] [address] Care Team Providers Care Hydraulic Press In Operator Name Role Phone Jonna Nieto MD Primary Care Prov ider Reason for Visit * Reason Comments [facility] Encounter Details Date Type Department Care Team (Late st Contact Info) Description 12/07/2024 Billing Patient Not Present Adult Medicine [address] [phone] Jonna Nieto MD [address] [place] [id number] Aspiration pneumonia, unspecified aspiration pneumonia type, unspecified [...] your loved ones. For example, child welfare director or elderly care for an older [...] 02/16/2025 10:50 AM EDT Consult Pulmonolgy - [place] [address] [place] [address] Rosario Uribe NP [address] [place] [address] documented as of this encounter Visit Diagnoses [...] documented as of this encounter Care Teams Hydraulic Press In Operator Relationship Specialty Start Date End Date Jonna Nieto MD [address] [place] [address] PCP - General Internal Medicine 07/13/22 documented as of this encounter
--- OUTSIDE RECORDS SUMMARY | 2025-01-23 18:05 | XMS_ITS | Clinical Summary ---
Author Organization 175 [facility] Address [address] [place] [address] Phone Care Team Providers Care Aerial Gunner Superintendent Name Role Phone Jonna Nieto MD Primary [...] of malignant melanoma of skin 0 12/07/2024 USP (current) use of anticoagulants 2024 Unspecified mood [...] Department Care Team Description 01/22/2025 Telephone Adult [address] [phone] Jonna Ojeda MD orders 01/12/2025 Telephone Adult [address] [phone] Jaleesa Negron, TAMIKA Faxed Order ([facility] home health order tracking# [id number]) 12/22/2024 Telephone Adult [address] [phone] Jaleesa Negron, TAMIKA Faxed Order ([facility] Discharge Summary Order Tracking# [id number]) 12/11/2024 Telephone Adult [address] [phone] Makeda Atkinson LPN Fitting for DME 12/08/2024 9:02 AM EST - 12/08/2024 11:59 PM EST Hospital Encounter CT Scan - [address] [phone] Pneumonia of both lungs due to infectious organism, unspecified part of lung Discharge Disposition: Home or Self Care 12/08/[address] [phone] Jenny Day [place] faxed order ([employer] [facility] tracking #[id number], #[id number]\, #[id number]) 12/07/2024 Billing Patient Not Present Adult [address] [phone] Jonna Ojeda MD Aspiration pneumonia, unspecified aspiration [...] PM EST Hospital Encounter Radiology Department - [address] [phone] Thyroid nodule Discharge Disposition: Home or Self Care 11/21/2024 1:04 PM EST - 11/21/2024 11:59 PM EST Hospital Encounter Radiology Department - [address] [phone] Right thyroid nodule Discharge Disposition: Home or Self Care 11/16/2024 10:30 AM EST Office Visit Adult Medicine [address] [phone] Katina Resendiz PA Pneumonia of both lungs due to infectious organism, unspecified part of lung (Primary Dx); Near syncope; Right thyroid nodule; Breast calcification, right; Atrial fibrillation, unspecified type (CMS/HCC) 11/13/2024 Telephone Adult Medicine [address] [phone] Jonna Ojeda MD Establish Care 11/01/2024 9:15 AM EST Office Visit Obstetrics and Gynecology - [address] [phone] Rosemary Garza MD Gross hematuria (Primary Dx) 10/26/2024 Telephone Obstetrics and Gynecology [address] [phone] Rosemary Garza MD Referral 10/25/2024 3:00 PM EST Office Visit Adult Medicine [address] [phone] Katina Resendiz PA Urinary tract infection with hematuria, site unspecified (Primary Dx); Vaginal bleeding; Vaginal irritation; Atrial fibrillation, unspecified type (CMS/HCC); Decreased GFR 10/25/2024 Telephone Adult Medicine [facility] [address] [place] [phone] Boni cruz, Jonna Ackerman MD UTI from [...] ---- BREAST LUMP BIOPSY ---- SALPINGOOPHORECTOMY PROCEDURE: OR LAPAROSCOPY W/RMVL ADNEXAL STRUCTURES; COMMENT: cyst removed APPENDECTOMY 1964 PROCEDURE: OR APPENDECTOMY CHOLECYSTECTOMY 1968 PROCEDURE: OR LAPAROSCOPY SURG CHOLECYSTECTOMY FINE NEEDLE ASPIRATION PROCEDURE: FINE NDLE ASPRTN W/IMAGING GUIDANCE; COMMENT: lt. breast bx-benign BREAST SURGERY PROCEDURE: OR UNLISTED PROCEDURE BREAST; COMMENT: lt. cyst removed... [...] 02/16/2025 10:50 AM EDT Consult Pulmonolgy - [place] [address] [facility] [address] [place] [phone] Rosario Uribe NP [address] [facility] [address] [place] [address] Health Maintenance Due Date Last Done Comments [...] Signed Date: 12/08/2024 14:52 ET Workstation ID: [id number] Transcribed By: Self Edit Transcribed Date: 12/08/2024 14:20 ET Narrative 12/08/2024 2:[address] CHEST WO CONTRAST TECHNIQUE: Multidetector CT of the chest was performed without intravenous contrast. COMPARISON: Chest CT on November 06, 2024 and November 02, 2024 HISTORY: Abnormal chest CT [facility] 11/02/2024. ??4-week follow-up on acute inflammatory [...] November 02, [address]ORY: Abnormal chest CT [facility] 11/02/2024. 4-[id number]-jh on acute inflammatory versus infectious processes involvinglingula, [...] the prior studies degraded by motion. Confluent uylw-qs-omuvpwbqhvxil in the posterolateral aspect of the right [...] Signed Date: 12/08/2024 14:52 ET Workstation ID: [id number] Transcribed By: Self Edit Transcribed Date: 12/08/2024 [...] Signed Date: 12/04/2024 11:00 ET Workstation ID: [id number] Transcribed By: Self Edit Transcribed Date: 12/04/2024 [...] Signed Date: 12/04/2024 11:00 ET Workstation ID: [id number] Transcribed By: Self Edit Transcribed Date: 12/04/2024 10:58 ET us Katina [facility] IMG US PROCEDURES Final Result * US Head Neck Soft Tissue (11/21/2024 1:54 PM EST) Anatomical Region Laterality Modality Head and Neck Ultrasound 11/21/2024 2:02 PM EST Impressions 11/21/2024 2:13 PM EST Solitary right thyroid nodule measuring up to 1.1 cm. ??Recommend fine-needle aspiration. POS - [id number] -------- FINAL REPORT -------- Dictated By: Candelaria Caballero Dictated Date: 11/21/2024 14:02 ET Assigned Physician: Candelaria Caballero Reviewed and Electronically Signed By: Candelaria Caballero Signed Date: 11/21/2024 14:13 ET Workstation ID: [id number] Transcribed By: Self Edit Transcribed Date: 11/21/2024 [...] to 1.1 cm. Recommendfine-needle aspiration. POS - [id number] -------- FINAL REPORT -------- Dictated By: Candelaria Caballero Dictated Date: 11/21/2024 14:02 ET Assigned Physician: Candelaria Caballero Reviewed and Electronically Signed By: Candelaria Caballero Signed Date: 11/21/2024 14:13 ET Workstation ID: [id number] Transcribed By: Self Edit Transcribed Date: 11/21/2024 14:02 ET us Katina [facility] IM US PROCEDURES Final Result * CBC auto differential (10/25/2024 3:52 PM EST) WBC 9.8 4.8 - 10.8 K/mcL LAB HEMETOLOGY METHOD 10/25/2024 6:16 PM [facility] RBC 4.30 3.80 - 4.80 M/mcL LAB HEMETOLOGY METHOD 10/25/2024 6:16 PM [facility] Hemoglobin 13.0 11.5 - 16.0 g/dL LAB HEMETOLOGY METHOD 10/25/2024 6:16 PM [facility] Hematocrit 40.4 35.0 - 47.0 % LAB HEMETOLOGY METHOD 10/25/2024 6:16 PM [facility] MCV 93.5 79.0 - 98.0 FL LAB HEMETOLOGY METHOD 10/25/2024 6:16 PM [facility] MCH 30.1 27.0 - 32.0 pcg LAB HEMETOLOGY METHOD 10/25/2024 6:16 PM [facility] MCHC 32.2 32.0 - 37.0 g/dL LAB HEMETOLOGY METHOD 10/25/2024 6:16 PM [facility] RDW 13.2 11.0 - 15.0 % LAB HEMETOLOGY METHOD 10/25/2024 6:16 PM [facility] Platelets 280 130 - 400 K/mcL LAB HEMETOLOGY METHOD 10/25/2024 6:16 PM [facility] MPV 10.9 7.0 - 11.0 FL LAB HEMETOLOGY METHOD 10/25/2024 6:16 PM [facility] NRBC 0.0 <1.0 % LAB HEMETOLOGY METHOD 10/25/2024 6:16 PM [facility] NRBC Absolute 0.00 <0.10 K/mcL LAB HEMETOLOGY METHOD 10/25/2024 6:16 PM [facility] Neutrophils Relative 61.6 % LAB HEMETOLOGY METHOD 10/25/2024 6:16 PM [facility] Lymphocytes Relative 26.2 % LAB HEMETOLOGY METHOD 10/25/2024 6:16 PM [facility] Monocytes Relative 7.7 % LAB HEMETOLOGY METHOD 10/25/2024 6:16 PM [facility] Eosinophils Relative 3.5 % LAB HEMETOLOGY METHOD 10/25/2024 6:16 PM [facility] Basophils Relative 0.7 % LAB HEMETOLOGY METHOD 10/25/2024 6:16 PM [facility] Immature Granulocytes Relative 0.3 % LAB HEMETOLOGY METHOD 10/25/2024 6:16 PM EST [facility] Neutrophils Absolute 6.04 1.50 - 7.00 K/mcL LAB HEMETOLOGY METHOD 10/25/2024 6:16 PM EST [facility] Lymphocytes Absolute 2.57 1.00 - 5.00 K/mcL LAB HEMETOLOGY METHOD 10/25/2024 6:16 PM [facility] Monocytes Absolute 0.75 0.20 - 1.00 K/mcL LAB HEMETOLOGY METHOD 10/25/2024 6:16 PM [facility] Eosinophils Absolute 0.34 0.00 - 0.50 K/[facility] LAB HEMETOLOGY METHOD 10/25/2024 6:16 PM [facility] Basophils Absolute 0.07 0.00 - 0.20 K/mcL LAB HEMETOLOGY METHOD 10/25/2024 6:16 PM [facility] Immature Granulocytes Absolute 0.03 0.00 - 0.03 K/[facility] LAB HEMETOLOGY METHOD 10/25/2024 6:16 PM [facility] Blood Venous blood specimen / Unknown Venipuncture / Unknown 10/25/2024 3:52 PM EST 10/25/2024 3:52 PM EST us Katina MC LAB BLOOD ORDERABLES Final Resul t [facility] [address] [place] [address], * (ABNORMAL) Comprehensive metabolic panel (10/25/2024 3:52 PM EST) Sodium 136 133 - 145 mmol/L LAB CHEMISTRY METHOD 10/25/2024 6:21 PM EST [facility] Potassium 4.4 3.5 - 5.5 mmol/L LAB CHEMISTRY METHOD 10/25/2024 6:21 PM EST [facility] Chloride 106 96 - 110 mmol/L LAB CHEMISTRY METHOD 10/25/2024 6:21 PM [facility] CO2 24 21 - 32 mmol/L LAB CHEMISTRY METHOD 10/25/2024 6:21 PM [facility] Anion Gap 6 3 - 11 LAB CHEMISTRY METHOD 10/25/2024 6:21 PM [facility] Glucose 108(H) 70 - 100 mg/dL LAB CHEMISTRY METHOD 10/25/2024 6:21 PM [facility] BUN 24 5 - 25 mg/dL LAB CHEMISTRY METHOD 10/25/2024 6:21 PM [facility] Creatinine 1.04 0.50 - 1.10 mg/dL LAB CHEMISTRY METHOD 10/25/2024 6:21 PM [facility] eGFR 53(L) >=60 mL/min/1. 73m2 LAB CHEMISTRY METHOD 10/25/2024 6:21 PM [facility] Comment:Calculation based on the??Chronic Kidney Disease Epidemiology Collaboration (CKD-EPI) equation refit??without adjustment for race. BUN/Creatinine Ratio 23.1 LAB CHEMISTRY METHOD 10/25/2024 6:21 PM [facility] Calcium 9.8 8.5 - 10.5 mg/dL LAB CHEMISTRY METHOD 10/25/2024 6:21 PM [facility] AST (SGOT) 26 10 - 42 unit/L LAB CHEMISTRY METHOD 10/25/2024 6:21 PM [facility] ALT (SGPT) 25 10 - 60 unit/L LAB CHEMISTRY METHOD 10/25/2024 6:21 PM [facility] Alkaline Phosphatase 111 42 - 121 unit/L LAB CHEMISTRY METHOD 10/25/2024 6:21 PM [facility] Total Protein 7.7 6.0 - 8.0 g/dL LAB CHEMISTRY METHOD 10/25/2024 6:21 PM [facility] Albumin 4.2 3.2 - 5.0 g/dL LAB CHEMISTRY METHOD 10/25/2024 6:21 PM EST [facility] Total Bilirubin 0.5 0.0 - 1.4 mg/dL LAB CHEMISTRY METHOD 10/25/2024 6:21 PM EST [facility] Blood Venous blood specimen / Unknown Venipuncture / Unknown 10/25/2024 3:52 PM EST 10/25/2024 3:52 PM EST Katina [facility] LAB BLOOD ORDERABLES Final Resul t [facility] [address] [place] [address], [place] [phone] * (ABNORMAL) POC Urine Auto W/O Micro (10/25/2024 3:09 PM EST) Leukocytes UA POC Positive(A) Negative Nitrite UA POC Negative Negative Urobilinogen UA POC Negative Negative Protein UA POC Negative Negative PH UA POC 6.0 5.0 - 9.0 Blood UA POC Positive(A) Negative, Trace Specific [place] UA POC 1.010 1.001 - 1.035 Ketones [...] LAB CHEMISTRY METHOD 09/19/2024 2:37 PM EST [facility] Triglycerides 200(H) 0 - 150 mg/dL LAB CHEMISTRY METHOD 09/19/2024 2:37 PM EST [facility] HDL 50 >=40 mg/dL LAB CHEMISTRY METHOD 09/19/2024 2:37 PM EST [facility] LDL Calculated 138(H) 0 - 100 mg/dL LAB CHEMISTRY METHOD 09/19/2024 2:37 PM EST [facility] VLDL Cholesterol Edmundo 40 mg/dL LAB CHEMISTRY METHOD 09/19/2024 2:37 PM EST [facility] Non HDL Chol. (LDL+VLDL) 178(H) <145 mg/dL LAB CHEMISTRY METHOD 09/19/2024 2:37 PM [facility] Chol/HDL Ratio 4.6(H) 0.0 - 4.4 LAB CHEMISTRY METHOD 09/19/2024 2:37 PM [facility] Blood Venous blood specimen / Unknown Venipuncture / Unknown 09/19/2024 11:59 AM EST 09/19/2024 11:59 AM EST Jennifer MC LAB BLOOD ORDERABLES Final Resu lt [facility] [address] [place] [address], [place] [phone] * Depression Screening (07/19/2024) [facility] Depression Screening Abstracted Historical Provider HEALTH MAINTENANCE Final Result from Last 3 Months or Most Recently Relevant to Health Maintenance Insurance MEDICARE [place]ICA[place] - [place] [facility] Care Teams Aerial Gunner Superintendent Relationship Specialty Start Date End Date Jonna Nieto MD [address] [place] [address] PCP - General Internal Medicine 07/13/22
--- OUTSIDE RECORDS SUMMARY | 2025-01-23 18:05 | XMS_ITS | Encounter Summary ---
Author Organization [facility] Address [address] [place] [address] Care Team Providers Care Paste Up Copy Camera Operator Name Role Phone Jonna Nieto MD Primary Care Prov ider Reason for Visit * Reason Onset Date Comments orders 01/22/2025 Encounter Details Date Type Department Care Team (Late st Contact Info) Description 01/22/2025 Telephone Adult Medicine [address] [phone] Jonna Nieto MD [address] [place] [address] orders Social History Tobacco Use Types Packs/Day [...] the pts diagnosis [facility] [employer]. Looking for a call back from office Please advise documented in this encounter Plan of Treatment Upcoming Encounters Date Type Department Care Team (Late st Contact Info) Description 02/16/2025 10:50 AM EDT Consult Pulmonolgy - [place] [address] [place] [address] Rosario Uribe NP [address] [facility] [address] [place] [address] documented as of this encounter Visit Diagnoses Not on filedocumented in this encounter Additional Health Concerns Assessment Noted Time A fall risk assessment has been complete d for the patient 10/25/2024 2:40 PM EST documented as of this encounter Care Teams Paste Up Copy Camera Operator Relationship Specialty Start Date End Date Jonna Nieto MD [address] [place] [address] PCP - General Internal Medicine 07/13/22 documented as of this encounter
--- OUTSIDE RECORDS SUMMARY | 2025-01-23 18:05 | XMS_ITS | Encounter Summary ---
[facility] Address [address] [place] [address] Care Team Providers Care Tax Services Manager Name Role Phone Jonna Nieto MD Primary Care Prov ider Reason for Visit * Reason Onset Date Comments Faxed Order 01/12/2025 [facility] home health order tracking# [id number] Encounter Details Date Type Department Care Team ([facility] Contact Info) Description 01/12/2025 Telephone Adult Medicine [address] [phone] Jaleesa Negron, TAMIKA Faxed Order ([facility] home health order tracking# [id number]) Social History Tobacco Use Types Packs/Day Years [...] care for your loved ones. For example, childrens club attendant or elderly care for an older adult? [...] RN - 01/12/2025 2:04 PM EDT Received [facility] home health order tracking# [id number]. Please sign and fax to [phone]. documented in this encounter Plan of Treatment Upcoming Encounters Date Type Department Care Team (Late st Contact Info) Description 02/16/2025 10:50 AM EDT Consult Pulmonolgy - [place] [address] [facility] [address] [facility] [address] [place] [address] Rosario Uribe NP [address] [facility] [address] [place] [address] documented as of this encounter Visit Diagnoses Not on filedocumented in this encounter Additional Health Concerns Assessment Noted Time A fall risk assessment has been complete d for the patient 10/25/2024 2:40 PM EST documented as of this encounter Care Teams Tax Services Manager Relationship Specialty Start Date End Date Jonna Nieto MD [address] [place] [address] PCP - General Internal Medicine 07/13/22 documented as of this encounter
--- OUTSIDE RECORDS SUMMARY | 2025-01-23 18:05 | XMS_ITS | Encounter Summary ---
Author Organization [facility] Address [address] [place] [address] Care Team Providers Care Information Broker Name Role Phone Jonna Nieto MD Primary Care Prov ider Encounter Details Date Type Department Care Team (Late st Contact Info) Description 08/08/2024 4:47 PM EDT Hospital Encounter TH HISTORIC ENCOUNTERS EASTERN CONVERSION ONLY Jennifer Willingham, ALEXANDRO [address] [place] [address] Social History Tobacco Use Types Packs/Day Years [...] for your loved ones. For example, children's institution attendant or elderly care for an older [...] 02/16/2025 10:50 AM EDT Consult Pulmonolgy - [place] [address] [facility] [address] [place] [phone] Rosario Uribe NP [address] [facility] [address] [place] [address] documented as of this encounter Visit Diagnoses Not on filedocumented in this encounter Care Teams Information Broker Relationship Specialty Start Date End Date Jonna Nieto MD [address] [place] [address] PCP - General Internal Medicine 07/13/22 documented as of this encounter
[2025-01-23 19:12] LABS: Rheumatoid Factor 14.7 IU/mL (<15.0)
[2025-01-23 19:22] LABS: Alanine Aminotransferase 16 U/L (0-31); Albumin Level 4.6 g/dL (3.5-5.0); Alkaline Phosphatase 105 U/L (39-117); Anion Gap 13 (12-20); Aspartate Amino Transferase 30 U/L (5-31); Bilirubin Total 0.3 mg/dL (0.0-1.0); Blood Urea Nitrogen 28 mg/dL (9-16); Calcium 10.4 mg/dL (8.4-10.2); Carbon Dioxide 22 mmol/L (22-29); Chloride 108 mmol/L (96-108); Estimated Glomerular Filt Rate 51; Glucose Random 93 mg/dL (60-115); Magnesium 2.6 mg/dL (1.6-2.6); Potassium 4.5 mmol/L (3.3-5.1); Sodium 138 mmol/L (135-145); Total Protein 8.4 g/dL (6.5-8.0)
[2025-01-23 19:30] LABS: TSH reflex Free T4 0.27 uIU/mL (0.32-4.0)
[2025-01-23 19:40] LABS: Folate 12.5 ng/mL (> or = 4.0); Vitamin B12 989 pg/mL (200-900)
[2025-01-23 20:49] LABS: Free T4 (Free Thyroxine) 1.07 ng/dL (0.71-1.85)
[2025-01-24 21:33] LABS: Prot Elec - Albumin 4.2 g/dL (3.8-4.8); Prot Elec - Alpha1 0.3 g/dL (0.2-0.3); Prot Elec - Alpha2 0.9 g/dL (0.5-0.9); Prot Elec - Beta 1 0.5 g/dL (0.4-0.6); Prot Elec - Beta 2 0.4 g/dL (0.2-0.5); Prot Elec - Gamma 0.9 g/dL (0.8-1.7); Prot Elec - Total Protein 7.3 g/dL (6.1-8.1)
[2025-01-31 11:33] LABS: ANA Titer 2 1:40 titer; Anti Nuclear Antibody Pattern Nuclear, Homogeneous; Anti Nuclear Antibody Screen POSITIVE (NEGATIVE)
[2025-01-31 19:48] LABS: Nicotinamide 31 ng/mL (see note); Vit B3 - Nicotinic Acid <20 ng/mL (see note)
== END 2025-01-23 13:41 | disposition home or self-care (01) ==
LOC: HO.HKASLDS 13:40
PROVIDERS: Visit Provider Nurse Practitioner Family
DX: D64.9 Anemia, unspecified (principal); E55.9 Vitamin D deficiency, unspecified; R55 Syncope and collapse; G62.9 Polyneuropathy, unspecified; R25.2 Cramp and spasm; R20.2 Paresthesia of skin; Z86.73 Personal history of transient ischemic attack (TIA), and cerebral infarction without residual deficits
CPT/HCPCS: 36415; 80053; 82607; 82746; 83735; 84165; 84439; 84443; 84591; 86038; 86039; 86431; 99212

== ENCOUNTER 2025-01-29 12:33 | Outpatient (REF) | payer MEDICARE, MEDICAID, SELFPAY ==
[2025-01-29 12:59] LABS: MANUAL DIFF FLAG NO
[2025-01-29 14:10] LABS: Basophils Absolute Auto 0.1 X10*3/uL (0.0-0.2); Basophils Percent Auto 1.1 % (0-2); Eosinophils Absolute Auto 0.3 X10*3/uL (0.0-0.4); Eosinophils Percent Auto 3.5 % (0-4); Hematocrit 36.4 % (37.0-47.0); Hemoglobin 11.7 g/dl (12.0-16.0); Imm Gran Abs Auto 0.02 X10*3/uL (0.00-0.03); Imm Gran Pct Auto 0.2 % (0.0-0.4); Lymphocytes Percent Auto 24.2 % (20-40); Mean Corpuscular HGB Conc 32.1 g/dl (31.0-35.0); Mean Corpuscular Volume 93.3 fL (80.0-98.0); Mean Platelet Volume 10.4 fL (9.4-12.3); Monocytes Absolute Auto 0.7 X10*3/uL (0.1-1.2); Monocytes Percent Auto 7.9 % (2-11); Neutrophils Absolute Auto 5.3 x10*3/uL (2.0-8.3); Neutrophils Percent Auto 63.1 % (45-73); Platelet Count 330 X10*3/uL (160-400); Red Cell Distribution Width 13.5 % (11.0-16.0); White Blood Count 8.4 X10*3/uL (4.8-10.8)
--- OUTSIDE RECORDS SUMMARY | 2025-01-29 14:29 | XMS_ITS | Continuity of Care Document ---
Author Organization [facility] Address [address] [place] [address] Phone Care Team Providers Care Airport Location Manager Name Role Phone Loyd TO, Niecy Unavailable [...] E&M Established 15 Mins- CT & [place] [facility] [place] [facility], [address] [place] [address] [address], [id number], [place] tel:[phone] [facility] Varicose veins of left lower extremity with other complication sRestless legs syndromeAthe rosclerotic heart disease of [place] coronary artery without angina pectorisCoro nary atherosclero sis due to lipid rich plaqueCerebr al infarction, unspecified 4 Loyd Pemberton. [address] [place] [address], [place], [place], [id number], [place]. tel:[phone] [facility], [address] [place] [address] Dr Yin [address], [id number], [place] tel:[phone] [facility] Encounter for follow-up examination after completed treatment for conditions other than malignant neVaricose veins of left lower extremity with pain 4 Milton BECKER RVT, NOAH Hewitt. [address] [place] [address], [facility] lisaCUB RUN, [place], [id number], [place]. tel:[phone] Referring Provider: Kash Rose MD, RVT, NOAH, [address] [place] [address], [address]. tel:[phone] [facility], [address] [place] [address] Dr Yin [address], [id number], [place] tel:[phone] [facility] Encounter for follow-up examination after completed treatment for conditions other than malignant neVaricose veins of left lower extremity with pain 4 Milton BECKER RVT, NOAH Hewitt. [address] [place], [place] [address]jim gonzalez [place], [id number], [place]. tel:[phone] Referring Provider: Kash Rose MD, RVT, NOAH, [address] [place] [address], [address]. tel:[phone] [facility], [address] [place] [address] Dr Yin [address], [id number], [place] tel:[phone] [facility] [place] [facility] [place] Varicose veins of left lower extremity with other complication s 4 Milton BECKER, JUANA, NOAH Hewitt. [address] [place] [address], [facility] [place], [id number], [place]. tel:[phone] Referring Provider: Kash Rose MD, JUANA, NOAH, [address] [place] [address], [place], [address]. tel:[phone] Offic/outpt E&m Estab 5 Min Trial- Telemedicine CT & [place] [facility], [address] [place] [address] [address], [place], [id number], [place] tel:[phone] [facility] Venous insufficienc y (chronic) (peripheral) Restless legs syndromeAthe rosclerotic heart disease of [place] coronary artery without angina pectorisCoro nary atherosclero sis due to lipid rich plaqueCerebr al infarction, unspecified 4 Hyun Ortega. [address] [place] [address], [facility] [place] [place], [id number], [place]. tel:[phone] Referring Provider: Jonna Ackerman, [address] [place] [address], [address]. tel:[phone] Office/Oupt E&M New Pt 30 Mins- CT & [place] [facility], [address] [place] [address] [address], [place], [id number], [place] tel:[phone] [facility] [place] [facility] [place] Pruritus, unspecifiedV aricose veins of left lower extremity with other complication Jerald in right lower legPain in left lower legRestless legs syndromeEsse ntial (primary) hypertension Atherosclero tic heart disease of [place] coronary artery without angina pectorisCoro nary atherosclero sis due to lipid rich plaqueCerebr al infarction, unspecified 4 Milton BECKER, JUANA, NOAH Hewitt. [address] [address], [facility] [place], [id number], [place]. tel:[phone] Referring Provider: Jonna Ackerman, [address] [place] [address], [address]. tel:[phone] [facility], [address] [facility] [address], [place], [id number], [place] tel:[phone] [facility] [place] [facility] [place] Chronic venous hypertension (idiopathic) with other complication s of bilateral lower extremity Milton BECKER, RVT, RPVI Kash. [address], [address], [place], [place], [id number], [place]. tel:[phone] Referring Provider: Jonna Soto MD [facility], [address] [place] [address], [id number]. tel:[phone] Family History Family Member Type Diagnosis Age At Onset No Information Payers Payer name Insurance type Covered constitution party ID Authoriza tion(s) Medicare NEYDA BARNARD [id number] BCBS NEYDA [id number] Medical Assistance NEYDA [id number] Social History Type Description Quantity Date Captured [...]
--- OUTSIDE RECORDS SUMMARY | 2025-01-29 14:29 | XMS_ITS | Clinical Summary ---
Author Organization [facility] Address [address] [place] [address] Phone Care Team Providers Care Nurse Discharge Name Role Phone Jonna Nieto MD Primary [...] ollowing cerebral infarction affecting right dominant side ([facility] V24, [facility] V28) 12/07/2024 History of falling 12/07/2024 Personal history of urinary (tract) infections 0 12/07/2024 Personal history of malignant melanoma of skin 0 12/07/2024 half-way (current) use of anticoagulants 2024 Unspecified mood (affective) disorder ([facility] V 24) 12/07/2024 Gastroesophageal reflux disease without esophagi tis [...] her vulvar skin from her diaper. A-fib (CMS/HCC V24, CMS/HCC V28) 11/24/2023 Overview (09/21/2024): Last Assessment & Plan: [...] Department Care Team Description 01/22/2025 Telephone Adult [address] [phone] Jonna Ojeda MD orders 01/12/[address] [phone] Jaleesa Negron, RN Faxed Order ([facility] home health order tracking# [id number]) 12/22/[address] [phone] Jaleesa Negron, RN Faxed Order ([employer] Discharge Summary Order Tracking# [id number]) 12/11/[address] [phone] Makeda Atkinson LPN Fitting for DME 12/08/2024 9:02 AM EST - 12/08/2024 11:59 PM [facility] Hospital Encounter CT Scan [address] [phone] Pneumonia of both lungs due to infectious organism, unspecified part of lung Discharge Disposition: Home or Self Care 12/08/[address] [phone] Jenny Day [place] faxed order ([employer] tracking #[id number], #[id number]\, #[id number]) 12/07/2024 Billing Patient Not Present [address] [phone] Jonna Ojeda MD Aspiration pneumonia, unspecified aspiration pneumonia type, unspecified laterality, unspecified part of lung (CMS/HCC V24, CMS/HCC V28) (Primary Dx); Hemiplegia and hemiparesis following cerebral infarction affecting right dominant side (CMS/HCC V24, CMS/HCC V28); Persistent atrial fibrillation (CMS/HCC V24, CMS/HCC V28); Benign essential hypertension; Venous insufficiency (chronic) (peripheral); Osteoarthritis of hip, unspecified laterality, unspecified osteoarthritis type; History of falling; Personal history of urinary (tract) infections; Personal history of malignant melanoma of skin; Gastroesophageal reflux disease without esophagitis 12/01/2024 8:40 AM EST - 12/01/2024 11:59 PM EST Hospital Encounter Radiology Department - [address] [phone] Thyroid nodule Discharge Disposition: Home or Self Care 11/21/2024 1:04 PM EST - 11/21/2024 11:59 PM EST Hospital Encounter Radiology Department - [address] [phone] Right thyroid nodule Discharge Disposition: Home or Self Care 11/16/2024 10:30 AM EST Office Visit Adult Medicine [address] [phone] Katina Resendiz PA Pneumonia of both lungs due to infectious organism, unspecified part of lung (Primary Dx); Near syncope; Right thyroid nodule; Breast calcification, right; Atrial fibrillation, unspecified type ([facility] V24, [facility] V28) 11/13/2024 Telephone Adult Medicine [address] [phone] Jonna Ojeda MD Establish Care 11/01/2024 9:15 AM EST Office Visit Obstetrics and Gynecology - [address] [phone] Rosemary Garza MD Gross hematuria (Primary Dx) from Last 3 Months Immunizations Name Administration [...] ---- BREAST LUMP BIOPSY ---- SALPINGOOPHORECTOMY PROCEDURE: WI LAPAROSCOPY W/RMVL ADNEXAL STRUCTURES; COMMENT: cyst removed APPENDECTOMY 1964 PROCEDURE: WI APPENDECTOMY CHOLECYSTECTOMY 1968 PROCEDURE: WI LAPAROSCOPY SURG CHOLECYSTECTOMY FINE NEEDLE ASPIRATION PROCEDURE: FINE NDLE ASPRTN W/IMAGING GUIDANCE; COMMENT: lt. breast bx-benign BREAST SURGERY PROCEDURE: WI UNLISTED PROCEDURE BREAST; COMMENT: lt. cyst removed... [...] your loved ones. For example, child welfare specialist or elderly care for an older adult? [...] 02/16/2025 10:50 AM EDT Consult Pulmonolgy - [place] [address] [facility] [address] [place] [phone] Rosario Uribe NP [address] [place] [address] Health Maintenance Due Date Last Done Comments [...] 11/21/2024 1:54 PM EST Right thyroid nodule COMPREHENSIVE METABOLIC PANEL STAT 10/25/2024 3:52 PM EST Urinary tract infection with hematuria, site unspecified Vaginal bleeding LIPID PANEL WITH REFLEX TO DIRECT LDL Routine 09/19/2024 11:59 AM EST Benign hypertension Hypercholesterolemi a Prediabetes HM DEPRESSION SCREENING Routine 07/19/2024 from Last 3 [...] Signed Date: 12/08/2024 14:52 ET Workstation ID: [id number] Transcribed By: Self Edit Transcribed Date: 12/08/2024 14:20 ET Narrative 12/08/2024 2:[address] CHEST WO CONTRAST TECHNIQUE: Multidetector CT of the chest was performed without intravenous contrast. COMPARISON: Chest CT on November 06, 2024 and November 02, 2024 HISTORY: Abnormal chest CT [facility] 11/02/2024. ??4-week follow-up on acute inflammatory [...] November 02, [address]24 [address]ISTORY: Abnormal chest CT [facility] 11/02/2024. 1-mqgvqtbrns-sf on acute inflammatory versus infectious processes involvinglingula, [...] the prior studies degraded by motion. Confluent raen-iv-lntqeunolfujj in the posterolateral aspect of the right [...] Saqib Wiseman Reviewed and Electronically Signed By: Saiqb Wiseman Signed Date: 12/08/2024 14:52 ET Workstation ID: [id number] Transcribed By: Self Edit Transcribed Date: 12/08/2024 [...] Signed Date: 12/04/2024 11:00 ET Workstation ID: [id number] Transcribed By: Self Edit Transcribed Date: 12/04/2024 [...] Signed Date: 12/04/2024 11:00 ET Workstation ID: [id number] Transcribed By: Self Edit Transcribed Date: 12/04/2024 10:58 ET us Katina [facility] IMG US PROCEDURES Final Result * US Head Neck Soft Tissue (11/21/2024 1:54 PM EST) Anatomical Region Laterality Modality Head and Neck Ultrasound 11/21/2024 2:02 PM EST Impressions 11/21/2024 2:13 PM EST Solitary right thyroid nodule measuring up to 1.1 cm. ??Recommend fine-needle aspiration. POS - [id number] -------- FINAL REPORT -------- Dictated By: Candelaria Caballero Dictated Date: 11/21/2024 14:02 ET Assigned Physician: Candelaria Caballero Reviewed and Electronically Signed By: Candelaria Caballero Signed Date: 11/21/2024 14:13 ET Workstation ID: [id number] Transcribed By: Self Edit Transcribed Date: 11/21/2024 [...] to 1.1 cm. Recommendfine-needle aspiration. POS - [id number] -------- FINAL REPORT -------- Dictated By: Candelaria Caballero Dictated Date: 11/21/2024 14:02 ET Assigned Physician: Candelaria Caballero Reviewed and Electronically Signed By: Candelaria Caballero Signed Date: 11/21/2024 14:13 ET Workstation ID: [id number] Transcribed By: Self Edit Transcribed Date: 11/21/2024 14:02 ET Katina [facility] PROCEDURES Final Result * (ABNORMAL) Comprehensive metabolic panel (10/25/2024 3:52 PM EST) Sodium 136 133 - 145 mmol/L LAB CHEMISTRY METHOD 10/25/2024 6:[address] [facility] Potassium 4.4 3.5 - 5.5 mmol/L LAB CHEMISTRY METHOD 10/25/2024 6:[address] [facility] Chloride 106 96 - 110 mmol/L LAB CHEMISTRY METHOD 10/25/2024 6:[address] [facility] CO2 24 21 - 32 mmol/L LAB CHEMISTRY METHOD 10/25/2024 6:[address] [facility] Anion Gap 6 3 - 11 LAB CHEMISTRY METHOD 10/25/2024 6:[address] [facility] Glucose 108(H) 70 - 100 mg/dL LAB CHEMISTRY METHOD 10/25/2024 6:[address] [facility] BUN 24 5 - 25 mg/dL LAB CHEMISTRY METHOD 10/25/2024 6:[address] [facility] Creatinine 1.04 0.50 - 1.10 mg/dL LAB CHEMISTRY METHOD 10/25/2024 6:[address] [facility] eGFR 53(L) >=60 mL/min/1. 73m2 LAB CHEMISTRY METHOD 10/25/2024 6:[address] [facility] Comment:Calculation based on the??Chronic Kidney Disease Epidemiology Collaboration (CKD-EPI) equation refit??without adjustment for race. BUN/Creatinine Ratio 23.1 LAB CHEMISTRY METHOD 10/25/2024 6:[address] [facility] Calcium 9.8 8.5 - 10.5 mg/dL LAB CHEMISTRY METHOD 10/25/2024 6:[address] [facility] AST (SGOT) 26 10 - 42 unit/L LAB CHEMISTRY METHOD 10/25/2024 6:[address] [facility] ALT (SGPT) 25 10 - 60 unit/L LAB CHEMISTRY METHOD 10/25/2024 6:[address] [facility] Alkaline Phosphatase 111 42 - 121 unit/L LAB CHEMISTRY METHOD 10/25/2024 6:[address] [facility] Total Protein 7.7 6.0 - 8.0 g/dL LAB CHEMISTRY METHOD 10/25/2024 6:[address] [facility] Albumin 4.2 3.2 - 5.0 g/dL LAB CHEMISTRY METHOD 10/25/2024 6:[address] [facility] Total Bilirubin 0.5 0.0 - 1.4 mg/dL LAB CHEMISTRY METHOD 10/25/2024 6:[address] [facility] Blood Venous blood specimen / Unknown Venipuncture / Unknown 10/25/2024 3:52 PM EST 10/25/2024 3:52 PM EST us Katina MC LAB BLOOD ORDERABLES Final Resul t [facility] [address] [place] [address], * (ABNORMAL) Lipid panel with reflex to direct LDL (09/19/2024 11:59 AM EST) Cholesterol 228(H) 0 - 200 mg/dL LAB CHEMISTRY METHOD 09/19/2024 2:[address] [facility] Triglycerides 200(H) 0 - 150 mg/dL LAB CHEMISTRY METHOD 09/19/2024 2:[address] [facility] HDL 50 >=40 mg/dL LAB CHEMISTRY METHOD 09/19/2024 2:[address] [facility] LDL Calculated 138(H) 0 - 100 mg/dL LAB CHEMISTRY METHOD 09/19/2024 2:37 PM EST [facility] VLDL Cholesterol Edmundo 40 mg/dL LAB CHEMISTRY METHOD 09/19/2024 2:37 PM EST [facility] Non HDL Chol. (LDL+VLDL) 178(H) <145 mg/dL LAB CHEMISTRY METHOD 09/19/2024 2:[address] [facility] Chol/HDL Ratio 4.6(H) 0.0 - 4.4 LAB CHEMISTRY METHOD 09/19/2024 2:[address] [facility] Blood Venous blood specimen / Unknown Venipuncture / Unknown 09/19/2024 11:59 AM EST 09/19/2024 11:59 AM EST Jennifer MC LAB BLOOD ORDERABLES Final Resu lt [facility] [address] [place] [address], [place] [phone] * Depression Screening (07/19/2024) Depression Screening Abstracted Historical Provider HEALTH MAINTENANCE Final Result from Last 3 Months or Most Recently Relevant to Health Maintenance Insurance MEDICARE MEDICAID - [place] [facility] Care Teams Nurse Discharge Relationship Specialty Start Date End Date Jonna Nieto MD [address] [place] [address] PCP - General Internal Medicine 07/13/22
--- OUTSIDE RECORDS SUMMARY | 2025-01-29 14:29 | XMS_ITS ---
Author Organization [facility] Address [address] [place] [address] Care Team Providers Care Basket Turner Name Role Phone Jonna Childress Primary Care Provider Unamarcia ilable Black, Mari Unavailable [phone] Allergies Allergen (clinical drug ingredient) Drug/Non Drug [...] Status W/U Status Risk Notes Problem Neuropathy (017242859) Neuropathy (G62.9) Active confirmed Vital Signs Height 5 ft 3 in in 01/04/2025 Weight 153 lbs 01/04/2025 BMI 27.1 kg/m2 01/04/2025 Blood pressure systolic 135 mm Hg 01/05/20 25 Blood pressure diastolic 75 mm Hg 025 Procedures Procedure Date Ordered Date Performed Result Body Sit e 81234-GSYAXHT NAIL, 6 OR MORE 01/04/2025 N/A Encounters Encounter Location Date Provider Diagnosis [facility] [address] [address] 01/04/2025 Mari Chowdhury Tinea unguium B35.1 ; [...] Treatment Pending Test Test Name Order Date 69157-NJPIXSC NAIL, 6 OR MORE 01/04/2025 Next Appt Details Follow Up: prn, Reason: Provider Name:Mari Chowdhury , 05/10/2025 11:30:00 AM, [address] [place] [address], [phone], Procedure Notes * Category Sub-Category Detail Notes [...] use of a nail nipper and/or dremel-type rubber roller grinder operator, to a more viable healthy nail plate [...] to maintain effectiveness in symptomatic relief - 13143 Progress Notes * Karena MARXmelissateshaDOB:[birth year] (84 yo F)Acc No.[id number]:01/04/2025 Progress Note Patient:?Cande MARX Provider:?Mari Chowdhury DPM :1940???Age:84 Y???Sex:Female D ate:01/04/2025 Address:[address] [place], [place] [address] Pcp:Jonna Childress Subjective: * Chief Complaints: * [...] of neck 08/2024 * Hospitalization/Major Diagno stic Procedure:?[place] Di[place] 06[place] [place]- right knee pain couldn't walk 08/20[facility] [place] Infection 12/09/23-12/16/23- Leak and GI Infection [...] use of a nail nipper and/or dremel-type rubber roller grinder operator, to a more viable healthy nail plate [...] to maintain effectiveness in symptomatic relief - 59724.? * Procedure Codes:?08902 DEBRI DE NAIL, 6 OR MORE, Modifiers: [...] Chowdhury DPM Date:?2024 Generated for Autumn patel/Samuel/Pelon on:?01/29/2025 02:29 PM EDT History and Physical Notes * [...]
--- OUTSIDE RECORDS SUMMARY | 2025-01-29 14:29 | XMS_ITS | Encounter Summary ---
Author Organization [facility] Address [address] [place] [address] Care Team Providers Care Head Of Housekeeping Name Role Phone Jonna Nieto MD Primary Care Prov ider Encounter Details Date Type Department Care Team (Late st Contact Info) Description 08/08/2024 4:47 PM EDT Hospital Encounter TH HISTORIC ENCOUNTERS EASTERN CONVERSION ONLY Jennifer Willingham, ALEXANDRO [address] [place] [address] Social History Tobacco Use Types Packs/Day Years [...] for your loved ones. For example, child health associate or elderly care for an older adult? [...] 02/16/2025 10:50 AM EDT Consult Pulmonolgy - [place] [address] [place] [address] Rosario Uribe NP [address] [place] [address] documented as of this encounter Visit Diagnoses Not on filedocumented in this encounter Care Teams Head Of Housekeeping Relationship Specialty Start Date End Date Jonna Nieto MD [address] [place] [address] PCP - General Internal Medicine 07/13/22 documented as of this encounter
--- OUTSIDE RECORDS SUMMARY | 2025-01-29 14:29 | XMS_ITS | Patient Health Record ---
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 confirmed Problem Acquired hammer toe of right foot (8781730693544445) Other hammer toe(s) (acquired), right foot (M20.41) Active confirmed Problem Neuropathy (532055121) Neuropathy (G62.9) Active confirmed Problem 18033732 Unsteady gait (R26.81) Active confirmed Problem 854247926 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) Active confirmed Problem 143165529 Equinus contracture of ankle (M24.573) Active confirmed Problem 37638597 Venous insufficiency (I87.2) Active confirmed Problem 0415433910532408 Equinus deformity of left foot (M21.6X2) Active confirmed Problem 9780960221866310 Equinus deformity of right foot (M21.6X1) Active confirmed Vital Signs Blood pressure diastolic 75 mm Hg 01/04/2025 Height 5 ft 3 in in 01/04/2025 Blood pressure systolic 135 mm Hg 01/04/2025 Weight 153 lbs 01/04/2025 BMI 27.1 kg/m2 01/04/2025 Procedures Procedure Date Ordered Date Performed Result Body Sit e 51858-ONLHVKL NAIL, 6 OR MORE 04/06/2024 N/A 20713-FYIQFAO NAIL, 6 OR MORE 09/07/2024 N/A 86178-Jifoxsed Plate 09/07/2024 N/A 72571-YIZZNAG NAIL, 6 OR MORE 01/04/2025 N/A Encounters Encounter Location Date Provider Diagnosis [address] [phone] 04/06/2024 Mari Black Tinea unguium B35.1 ; Pain in right toe(s) M79.674 and Pain in left toe(s) M79.[address] [address] 09/07/2024 Mari Black Tinea unguium B35.1 ; Ingrown nail L60.0 ; Pain in right toe(s) M79.674 and Pain in left toe(s) M79.[address] [address] 01/04/2025 Mari Black Tinea unguium B35.1 ; [...] Treatment Pending Test Test Name Order Date 08936-LKBALLC NAIL, 6 OR MORE 08/12/2011 24813-ZOWOPME NAIL, 6 OR MORE 11/11/2011 29218-LSLIGJH NAIL, 6 OR MORE 02/10/2012 49885-CIFZLJA NAIL, 6 OR MORE 05/16/2012 00394-WUVAHAZ NAIL, 6 OR MORE 08/17/2012 24872-DYYFFLK NAIL, 6 OR MORE 11/16/2012 45601-HIQEZFQ NAIL, 6 OR MORE 02/13/2013 60915-MPLZFCV NAIL, 6 OR MORE 05/17/2013 30256-SBEIKDE NAIL, 6 OR MORE 11/13/2013 35786-HIWXPGM NAIL, 6 OR MORE 02/14/2014 29338-FBTQOUK NAIL, 6 OR MORE 05/21/2014 31252-KBKQYHS NAIL, 6 OR MORE 08/09/2013 91034-SRCBREK NAIL, 6 OR MORE 08/27/2014 86771-HKBGDAZ NAIL, 6 OR MORE 11/21/2014 05459-OFBGOTV NAIL, 6 OR MORE 02/20/2015 15484-GTYPJOU NAIL, 6 OR MORE 05/22/2015 83562-JHRTIRK NAIL, 6 OR MORE 08/26/2015 65824-FKSZOOJ NAIL, 6 OR MORE 11/25/2015 50105-XJVKPMF NAIL, 6 OR MORE 02/24/2016 83713-KQWBNUH NAIL, 6 OR MORE 05/25/2016 12907-BWCRETA NAIL, 6 OR MORE 08/24/2016 31429-FVOFLNY NAIL, 6 OR MORE 11/23/2016 17700-YJEPGUF NAIL, 6 OR MORE 05/27/2017 32411-PISYBDA NAIL, 6 OR MORE 08/26/2017 36295-JFHDVBB NAIL, 6 OR MORE 11/25/2017 09034-MFCGAZK NAIL, 6 OR MORE 02/28/2018 07741-TSGOOUV NAIL, 6 OR MORE 05/30/2018 31074-LDWIFRU NAIL, 6 OR MORE 08/29/2018 43511-WRUPYPG NAIL, 6 OR MORE 02/27/2019 42391-LFLSOZN NAIL, 6 OR MORE 09/25/2019 52811-DAHVNKM NAIL, 6 OR MORE 12/25/2019 08499-KLHRGEO NAIL, 6 OR MORE 04/01/2020 21894-VVUMRZK NAIL, 6 OR MORE 07/08/2020 44838-FAHVRER NAIL, 6 OR MORE 10/07/2020 66769-XRPIAQZ NAIL, 6 OR MORE 02/03/2021 92464-QWKJEEN NAIL, 6 OR MORE 05/05/2021 41796-PUYDTVT NAIL, 6 OR MORE 08/11/2021 29965-JWGPKFX NAIL, 6 OR MORE 11/24/2021 32362-SLFYMBO NAIL, 6 OR MORE 03/02/2022 17126-YZAAYRV NAIL, 6 OR MORE 06/04/2022 49031-YBYQHED NAIL, 6 OR MORE 09/03/2022 81023-APFAOAZ NAIL, 6 OR MORE 12/10/2022 12305-DNJNWEA NAIL, 6 OR MORE 03/08/2023 76937-XLWPRGJ NAIL, 6 OR MORE 06/07/2023 73187-YLTVFAG NAIL, 6 OR MORE 12/27/2023 42423-YPVYIAR NAIL, 6 OR MORE 04/06/2024 41759-JTKXOKV NAIL, 6 OR MORE 09/07/2024 97333-ZAFIOAU NAIL, 6 OR MORE 01/04/2025 77054-HFPSYBZ NAIL, 6 OR MORE 05/29/2019 45563-SUYASPX NAIL, 6 OR MORE 11/28/2018 04577-CQKBBCL NAIL, 6 OR MORE 02/22/2017 95653-Xhuc Destruction, -14 11/28/2018 39764-Dehi Destruction, -11/24/2021 11710-Qhec Destruction, 10-3105/29/2019 12177-Zkng Destruction, -14 06/07/2023 08950-Zncr Destruction, -14 03/08/2023 99535-Mhuy Destruction, -14 12/10/2022 32219-Zrpv Destruction, 10-3109/03/2022 91918-Uyva Destruction, -14 03/02/2022 59449-Zxpo Destruction, -14 06/04/2022 89799-Julf Destruction, 14 08/11/2021 26228-Ldxq Destruction, 10-3105/05/2021 25133-Ebnf Destruction, -14 02/03/2021 61457-Aaps Destruction, 10-3107/08/2020 52251-Yupx Destruction, 10-3110/07/2020 42668-Nqxq Destruction, 10-3104/01/2020 29770-Giso Destruction, 14 09/25/2019 61050-Sjlw Destruction, -14 02/27/2019 17338-Slou Destruction, -14 08/29/2018 14677-Tzeb Destruction, 10-3105/30/2018 13735-Jepo Destruction, 10-3102/28/2018 31871-Akgj Destruction, 10-3111/25/2017 88046-Xzbe Destruction, 10-3105/27/2017 99660-Ioog Destruction, 10-3108/26/2017 44257-Txzh Destruction, 10-3111/23/2016 78481-Oxzd Destruction, 10-3108/24/2016 44569-Bjnm Destruction, 10-3105/25/2016 35672-Ofvu Destruction, 10-3102/24/2016 03570-Ipid Destruction, 10-3111/25/2015 59683-Rxxf Destruction, 10-3102/13/2013 67146-Utvl Destruction, 10-3105/17/2013 47949-Fmcm Destruction, 10-3111/16/2012 07374-Vpfs Destruction, 10-3108/17/2012 47520-Zohf Destruction, 10-3105/16/2012 88026-Kvyd Destruction, 10-3102/10/2012 46522-Mquo Destruction, 10-3111/11/2011 68247-Zmub Destruction, 10-3108/12/2011 76451-Muiquspp Plate 05/16/2012 46630-Fyrexusp Plate 05/17/2013 74735-Moxslfbf Plate 02/13/2013 46186-Qpolaihd Plate 02/20/2015 49965-Cuebjowt Plate 08/27/2014 20138-Uqaziasq Plate 05/21/2014 79353-Qfhtxydu Plate 02/14/2014 75658-Qolkdjmt Plate 05/22/2015 92821-Pqzvsvol Plate 11/23/2016 68232-Oajwwbdo Plate 08/26/2017 04063-Zptizqqz Plate 07/08/2020 55890-Ndspxrxq Plate 05/05/2021 97945-Svhqkkqv Plate 09/07/2024 92468-Wthqlllj Plate 12/27/2023 34290-Yjsrbsvk Plate 05/29/2019 22205-Qhbyxqpq Plate Each Additional 38676-Huquritf Plate Each Additional 44598-Ykaivrsl Plate Each Additional 01/2014 37530-Wdntwbwh Plate Each Additional 03/2015 48416- Debride <25 sq cm 08/09/2013 55761- Debride <25 sq cm 05/21/2014 30563- Debride <25 sq cm 12/25/2019 18286 I&D ABSCESS- SIMPLE,SINGLE 015 27281 I&D ABSCESS- SIMPLE,SINGLE 015 46808 I&D ABSCESS- SIMPLE,SINGLE 022 Next Appt Details Provider Name:Mari Chowdhury , 05/10/2025 11:30:00 AM, [address] [place], [address], Insurance Providers Payer Name Payer Address Payer Phone Subscriber Number Group Number Insured Name Patient Relationship to Insured Coverage Start Date Coverage End Date Medicare [facility] [employer] [address] [place] [address] [id number] Cande Marx Self - patient is the insured [employer] [address] [place] [address] [id number] Cande Marx Self - patient is the insured Medical (General) History Medical History History ICD Code transfusions hypertension chicken pox Stroke Surgical History Surgery Date(Month/Year) appendectomy 1960 breast surgery 1967 cholecystectomy 1969 basal cell removal forehead and right le g 07/2015 biopsy of neck 08/2024 Hospitalization History Reason Date(Month/Year) [place]- ER- Diarrhea 06/2018 [facility] [place] - Stroke 08/09 [facility] [place]- Leak and GI Infection 11/06/23 [facility] [place] GI Infection 12/09/23-12/16/23 [facility] [place] Er- right knee pain couldn't walk
--- OUTSIDE RECORDS SUMMARY | 2025-01-29 14:30 | XMS_ITS | Encounter Summary ---
Author Organization [facility] Address [address] [place] [address] Care Team Providers Care Spinning And Winding Supervisor Name Role Phone Jonna Nieto MD Primary Care Prov ider Reason for Visit * Reason Comments HOME HEALTH CERTT Encounter Details Date Type Department Care Team (Late st Contact Info) Description 12/07/2024 Billing Patient Not Present Adult Medicine [address] [phone] Jonna Nieto MD [address] [place] [address] Aspiration pneumonia, unspecified aspiration pneumonia type, unspecified [...] your loved ones. For example, child care attendant school or elderly care for an older adult? [...] 02/16/2025 10:50 AM EDT Consult Pulmonolgy - [place] [address] [place] [address] Rosario Uribe NP [address] [place] [address] documented as of this encounter Visit Diagnoses Diagnosis Aspiration pneumonia, unspecified aspiration pneumonia type, unspecified laterality, unspecified part of lung ([facility] V24, CMS/[facility] V28)- Primary Hemiplegia and hemiparesis following cerebral infarction affecting right dominant side (CMS/[facility] V24, CMS/[facility] V28) Persistent atrial fibrillation (CMS/[facility] V24, CMS/[facility] V28) Atrial fibrillation Benign essential hypertension Essential hypertension, [...] documented as of this encounter Care Teams Spinning And Winding Supervisor Relationship Specialty Start Date End Date Jonna Nieto MD [address] [place] [address] PCP - General Internal Medicine 07/13/22 documented as of this encounter
--- OUTSIDE RECORDS SUMMARY | 2025-01-29 14:30 | XMS_ITS ---
Author Organization [facility] Address [address] [place] [address] Care Team Providers Care Tool Polisher Name Role Phone Jonna Childress Primary Care Provider Unava ilable Mari Chowdhury Unavailable [phone] Mcelroy Encounters Encounter Location Date Provider Diagnosis [address] [address] 07/17/2024 Mari Chowdhury Plan Of Treatment Next Appt Details Provider Name:Mari Anna Chowdhury , 05/10/2025 11:30:00 AM, [address] [place] [address], [phone], Progress Notes * Cande MARXDOB:[birth year] (84 yo F)Acc No.[id number]:07/17/2024 Progress Note Patient:?Karena MARXhleen Provider:?Mari Chowdhury DPM :1940???Age:83 Y???Sex:Female D ate:07/17/2024 Address:[address] [place] [address] Pcp:Jonna Childress Subjective: * Chief Complaints: * [...] Chowdhury DPM Date:?2023 Generated for Autumn patel/Samuel/Pelon on:?01/29/2025 02:30 PM EDT
--- OUTSIDE RECORDS SUMMARY | 2025-01-29 14:30 | XMS_ITS | Encounter Summary ---
Author Organization [facility] Address [address] [place] [address] Care Team Providers Care Planer Operator Name Role Phone Jonna Nieto MD Primary Care Prov ider Reason for Visit * Reason Onset Date Comments Faxed Order 01/12/2025 [facility] home health order tracking# [id number] Encounter Details Date Type Department Care Team ([facility] Contact Info) Description 01/12/2025 Telephone Adult Medicine [address] [phone] Jaleesa Negron, TAMIKA Faxed Order ([facility] home health order tracking# [id number]) Social History Tobacco Use Types Packs/Day Years [...] your loved ones. For example, early childhood associate teacher or elderly care for an older adult? [...] RN - 01/12/2025 2:04 PM EDT Received [facility] home health order tracking# [id number]. Please sign and fax to [phone]. documented in this encounter Plan of Treatment Upcoming Encounters Date Type Department Care Team (Late st Contact Info) Description 02/16/2025 10:50 AM EDT Consult Pulmonolgy - [place] [address] [place] [address] Rosario Uribe NP [address] [place] [address] documented as of this encounter Visit Diagnoses Not on filedocumented in this encounter Additional Health Concerns Assessment Noted Time A fall risk assessment has been complete d for the patient 10/25/2024 2:40 PM EST documented as of this encounter Care Teams Planer Operator Relationship Specialty Start Date End Date Jonna Nieto MD [address] [place] [address] PCP - General Internal Medicine 07/13/22 documented as of this encounter
--- OUTSIDE RECORDS SUMMARY | 2025-01-29 14:30 | XMS_ITS | Encounter Summary ---
Author Organization [facility] Address [address] [place] [address] Care Team Providers Care Financial Administrative Assistant Name Role Phone Jonna Nieto MD Primary Care Prov ider Reason for Visit * Reason Onset Date Comments orders 01/22/2025 Encounter Details Date Type Department Care Team (Late st Contact Info) Description 01/22/2025 Telephone Adult Medicine [address] [phone] Jonna Nieto MD [address] [place] [phone] orders Social History Tobacco Use Types Packs/Day [...] loved ones. For example, child day care teacher or elderly care for an older [...] as of this encounter Progress Notes * Jonna Nieto MD - 01/25/2025 1:13 PM EDT I didn't order the test but diagnosis is in the order. * Gertrude Lara - 01/22/2025 12:34 PM EDT Kady from central scheduling is calling In regards to the pts diagnosis code on the orders [facility]. Looking for a call back from office Please advise documented in this encounter Plan of Treatment Upcoming Encounters Date Type Department Care Team (Late st Contact Info) Description 02/16/2025 10:50 AM EDT Consult Pulmonolgy - [place] [address] [place] [address] Rosario Uribe NP [address] [place] [address] documented as of this encounter Visit Diagnoses Not on filedocumented in this encounter Additional Health Concerns Assessment Noted Time A fall risk assessment has been complete d for the patient 10/25/2024 2:40 PM EST documented as of this encounter Care Teams Financial Administrative Assistant Relationship Specialty Start Date End Date Jonna Nieto MD [address] [place] [address] PCP - General Internal Medicine 07/13/22 documented as of this encounter
--- OUTSIDE RECORDS SUMMARY | 2025-01-29 14:30 | XMS_ITS ---
Author Organization [facility] Address [address] [place] [address] Care Team Providers Care Skoog Operator Name Role Phone Jonna Childress Primary Care Provider Unamarcia ilable Black, Mari Unavailable [phone] Allergies Allergen (clinical drug ingredient) Drug/Non Drug [...] Ordered Date Performed Result Body Sit e 46269-WEPCBMZ NAIL, 6 OR MORE 09/07/2024 N/A 73316-Letxmrlb Plate 09/07/2024 N/A Encounters Encounter Location Date Provider Diagnosis [facility] [address] [address] 09/07/2024 Mari Chowdhury Tinea unguium B35.1 ; [...] Treatment Pending Test Test Name Order Date 21605-XBVXASK NAIL, 6 OR MORE 09/07/2024 40894-Qjuzahgb Plate 09/07/2024 Next Appt Details Follow Up: 2 Weeks,prn, Reas on: Provider Name:Mari Chowdhury , 05/10/2025 11:30:00 AM, [address] [place] [address], [phone], Procedure Notes * Category Sub-Category Detail Notes [...] Motrin was recommended for pain or discomfort (10887), Pt DEFERS matricectomy Anesthesia , was accomplished [...] to continue use of a topical antifungal, (69030) Progress Notes * Cande MARXDOB:[birth year] (84 yo F)Acc No.[id number]:09/07/2024 Progress Note Patient:?Cande MARX Provider:?Mari Chowdhury DPM :1940???Age:84 Y???Sex:Female D ate:09/07/2024 Address:[address] [place], [place] [phone] Pcp:Jonna Childress Subjective: * Chief Complaints: * [...] of neck 08/2024 * Hospitalization/Major Diagno stic Procedure:?[place]- [place]- Diarrhea 06/2018[facility] [place]- right knee pain couldn't walk 08/20[facility] Infection 12/09/23-24[place]- Leak and GI Infection [...] - M79.675??? Plan: * Treatment: 2.?Tinea unguium?Procedure: 50842-IGCLQTK NAIL, 6 OR MORE * Procedures:?Debride Nail [...] to continue use of a topical antifungal, (34768).?Nail Avulsion:?Location?, Lateral nail border, T5.?Anesthesia?, was accomplished [...] Motrin was recommended for pain or discomfort (96784), Pt DEFERS matricectomy.? * Procedure Codes:?58291 DEBRI DE NAIL, 6 OR MORE, Modifiers: XS 18141 Avulsion Plate, Modifiers: T5 * Follow Up:?2 Weeks,prn * Images: * Sign off status: Completed true * Provider:?Mari Chowdhury DPM Date:?2023 Generated for Autumn patel/Samuel/Pelon on:?01/29/2025 02:29 PM [...]
[2025-01-29 14:51] LABS: Erythrocyte Sedimentation Rate 25 MM/HR (0-20)
[2025-01-30 11:58] LABS: CRP High Sensitivity 4.9 mg/L
[2025-01-30 20:09] LABS: Homocysteine 10.3 umol/L (<10.4)
[2025-02-01 05:31] LABS: Zinc 75 mcg/dL (60-130)
[2025-02-01 11:09] LABS: Methylmalonic Acid 210 nmol/L (85-423)
[2025-02-01 14:44] LABS: Copper, serum 103 mcg/dL (70-175)
[2025-02-02 14:13] LABS: Vitamin D 25-OH, D2 <4 ng/mL; Vitamin D 25-OH, D3 75 ng/mL; Vitamin D 25-OH, Total 75 ng/mL (30-100)
[2025-02-03 06:59] LABS: Vitamin B5 (Pantothenic Acid) 79 ng/mL (<275)
[2025-02-04 15:53] LABS: Vitamin B6 15.5 ng/mL (2.1-21.7)
[2025-02-08 15:53] LABS: Vitamin B1 153 nmol/L (8-30)
== END 2025-01-29 12:34 | disposition home or self-care (01) ==
LOC: HO.LAB 12:33
PROVIDERS: PCP Internal Medicine; Visit Provider Nurse Practitioner Family
DX: D64.9 Anemia, unspecified (principal); E55.9 Vitamin D deficiency, unspecified; R55 Syncope and collapse; G62.9 Polyneuropathy, unspecified; R25.2 Cramp and spasm
CPT/HCPCS: 36415; 82306; 82525; 83090; 83921; 84207; 84252; 84425; 84591; 84630; 85025; 85652; 86141

== ENCOUNTER 2025-03-02 06:49 | Emergency (ER) | payer MEDICARE, MEDICAID, SELFPAY ==
--- NOTE | ~2025-03-02 | XR_ITS ---
EXAMINATION: XR CHEST CLINICAL INFORMATION: sob COMPARISON: 11/06/2024. TECHNIQUE: Frontal view of the chest was obtained. FINDINGS: Mild cardiac enlargement. The hilar, and mediastinal contours are normal. The lungs are clear bilaterally. No pneumothorax or effusion. No focal osseous or soft tissue abnormality. XR/XR chest 1V IMPRESSION: 1. Mild cardiomegaly. 2. No active pulmonary disease on this limited AP view. Electronically signed by: Jordan Laws MD 03/02/2025 11:17 AM EDT
[2025-03-02 06:59] VITALS: BP 126/51; BP 126/70; PULSE 68; PULSE 70; RESP 14; TEMP 36.6; O2SAT 93; O2SAT 94; BMI 28.9
--- OUTSIDE RECORDS SUMMARY | 2025-03-02 07:19 | XMS_ITS | Patient Health Record ---
Author Organization [facility] Address [address] [place] [address] Care Team Providers Care Car Retarder Operator Name Role Phone Jonna Childress Primary Care Provider Unava ilable Black, Mari Unavailable [phone] Allergies Allergen (clinical drug ingredient) Drug/Non Drug [...] Risk Notes Problem Non-pressure ulcer lower limb (902032703) Non-pressure chronic ulcer of other part of right foot limited to breakdown of skin (L97.511) Active confirmed Problem Acquired hammer toe of right foot (7135561706192126) Other hammer toe(s) (acquired), right foot (M20.41) Active confirmed Problem Neuropathy (884620712) Neuropathy (G62.9) Active confirmed Problem 35661995 Unsteady gait (R26.81) Active confirmed Problem 802249206 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) Active confirmed Problem 337540518 Equinus contracture of ankle (M24.573) Active confirmed Problem 96641209 Venous insufficiency (I87.2) Active confirmed Problem 3589637256758970 Equinus deformity of left foot (M21.6X2) Active confirmed Problem 9727647686597203 Equinus deformity of right foot (M21.6X1) Active confirmed Vital Signs Blood pressure diastolic 75 mm Hg 01/04/2025 Height 5 ft 3 in in 01/04/2025 Blood pressure systolic 135 mm Hg 01/04/2025 Weight 153 lbs 01/04/2025 BMI 27.1 kg/m2 01/04/2025 Procedures Procedure Date Ordered Date Performed Result Body Sit e 64616-YYKBBAL NAIL, 6 OR MORE 04/06/2024 N/A 55486-UYNBSDJ NAIL, 6 OR MORE 09/07/2024 N/A 08315-Jnlosjiy Plate 09/07/2024 N/A 39449-WJCEHOC NAIL, 6 OR MORE 01/04/2025 N/A Encounters Encounter Location Date Provider Diagnosis [address] [phone] 04/06/2024 Mari Black Tinea unguium B35.1 ; Pain in right toe(s) M79.674 and Pain in left toe(s) M79.[address] [address] 09/07/2024 Mari Black Tinea unguium B35.1 ; Ingrown nail L60.0 ; Pain in right toe(s) M79.674 and Pain in left toe(s) M79.[address] [address] 01/04/2025 Mari Black Tinea unguium B35.1 ; [...] Treatment Pending Test Test Name Order Date 81095-JIIRCKR NAIL, 6 OR MORE 08/12/2011 31544-PMTRUWN NAIL, 6 OR MORE 11/11/2011 68623-IIWVSMV NAIL, 6 OR MORE 02/10/2012 78466-AOZWNSW NAIL, 6 OR MORE 05/16/2012 36880-AYAHVUP NAIL, 6 OR MORE 08/17/2012 44551-NRZJTHI NAIL, 6 OR MORE 11/16/2012 54598-NVHMOVY NAIL, 6 OR MORE 02/13/2013 00103-QBWOINM NAIL, 6 OR MORE 05/17/2013 01807-LPQDGFF NAIL, 6 OR MORE 11/13/2013 76422-TLPPXJD NAIL, 6 OR MORE 02/14/2014 12235-UXFHTKP NAIL, 6 OR MORE 05/21/2014 47584-PPCLPVG NAIL, 6 OR MORE 08/09/2013 86738-FBOLDLV NAIL, 6 OR MORE 08/27/2014 48931-RJTNGDV NAIL, 6 OR MORE 11/21/2014 97516-LZIPRCU NAIL, 6 OR MORE 02/20/2015 49103-MIDVXIE NAIL, 6 OR MORE 05/22/2015 83075-CCLUHJF NAIL, 6 OR MORE 08/26/2015 41230-ELMVBXU NAIL, 6 OR MORE 11/25/2015 75280-CSQEGQD NAIL, 6 OR MORE 02/24/2016 40611-BBJVXED NAIL, 6 OR MORE 05/25/2016 57770-CBEDYDZ NAIL, 6 OR MORE 08/24/2016 02038-EIYYDPT NAIL, 6 OR MORE 11/23/2016 37811-YNDJIZK NAIL, 6 OR MORE 02/22/2017 44571-OQGRFKY NAIL, 6 OR MORE 05/27/2017 92861-JANVCOU NAIL, 6 OR MORE 08/26/2017 75195-MIHGLQG NAIL, 6 OR MORE 11/25/2017 50875-VJZDXQU NAIL, 6 OR MORE 02/28/2018 99990-DEFNDSH NAIL, 6 OR MORE 05/30/2018 22198-SSUQLVJ NAIL, 6 OR MORE 08/29/2018 24110-DFYWXRM NAIL, 6 OR MORE 11/28/2018 51331-SNCBFVP NAIL, 6 OR MORE 02/27/2019 20843-ZCLDZRG NAIL, 6 OR MORE 05/29/2019 11733-OYPKUWN NAIL, 6 OR MORE 09/25/2019 21006-GKVBYVE NAIL, 6 OR MORE 12/25/2019 99937-EJYTINX NAIL, 6 OR MORE 04/01/2020 76944-KCUXHFT NAIL, 6 OR MORE 07/08/2020 74451-NPWJKRP NAIL, 6 OR MORE 10/07/2020 46546-WXNLXHQ NAIL, 6 OR MORE 02/03/2021 24084-ACUPLII NAIL, 6 OR MORE 05/05/2021 84355-YGYYCEL NAIL, 6 OR MORE 11/24/2021 61331-ONGINSJ NAIL, 6 OR MORE 03/02/2022 02234-WDYLCAG NAIL, 6 OR MORE 08/11/2021 87795-FZGQKWR NAIL, 6 OR MORE 06/04/2022 82627-OOIMSBD NAIL, 6 OR MORE 09/03/2022 26112-RWHUUXN NAIL, 6 OR MORE 12/10/2022 11556-KHCIBFX NAIL, 6 OR MORE 03/08/2023 51148-UILYJDB NAIL, 6 OR MORE 06/07/2023 71312-EVJKZUA NAIL, 6 OR MORE 12/27/2023 65741-VIRELCT NAIL, 6 OR MORE 04/06/2024 36272-GWEYENL NAIL, 6 OR MORE 09/07/2024 76166-OWKNJSE NAIL, 6 OR MORE 01/04/2025 82425-Hazr Destruction, 1-14 06/07/2023 51428-Xput Destruction, -14 11/24/2021 70496-Pzef Destruction, -14 03/08/2023 12160-Qcok Destruction, -14 12/10/2022 87780-Oiks Destruction, -14 09/03/2022 75950-Dxfr Destruction, -14 03/02/2022 19143-Jujt Destruction, -14 06/04/2022 15318-Wkhn Destruction, -14 08/11/2021 24469-Lmfb Destruction, -14 05/05/2021 87634-Wtsh Destruction, -14 02/03/2021 68208-Bvvb Destruction, -14 07/08/2020 81578-Puwy Destruction, -14 10/07/2020 26522-Cnhe Destruction, -14 04/01/2020 40522-Cnqy Destruction, -14 09/25/2019 00590-Agsl Destruction, -14 08/26/2017 37436-Wzqk Destruction, -14 05/29/2019 87547-Kqcn Destruction, -14 02/27/2019 27968-Jalo Destruction, -14 11/28/2018 17877-Wiwl Destruction, -14 08/29/2018 22773-Wqmx Destruction, 10-3105/30/2018 56332-Tnjy Destruction, 10-3102/28/2018 39472-Kuai Destruction, 10-3111/25/2017 81904-Zwdk Destruction, 10-3105/27/2017 50536-Gtug Destruction, 10-3111/23/2016 56749-Ukeg Destruction, 10-3108/24/2016 81721-Mxdv Destruction, 10-3105/25/2016 45385-Qyxq Destruction, 10-3102/24/2016 75377-Haim Destruction, 10-3111/25/2015 81134-Nrzf Destruction, 10-3102/13/2013 00993-Edjk Destruction, 10-3105/17/2013 38754-Fgsp Destruction, 10-3111/16/2012 18336-Pkpi Destruction, 10-3108/17/2012 16038-Dqmr Destruction, 10-3105/16/2012 11628-Pdpr Destruction, 10-3102/10/2012 15852-Fkbw Destruction, 10-3111/11/2011 99607-Ikyf Destruction, 10-3108/12/2011 62274-Rrohgoqf Plate 05/16/2012 12140-Phgsitrg Plate 05/17/2013 11783-Ejzgegdf Plate 02/13/2013 47265-Bphmboqm Plate 02/20/2015 38608-Qslmtvtf Plate 08/27/2014 95297-Tcdmhrrs Plate 05/21/2014 45203-Rwakgufc Plate 02/14/2014 15618-Zjbcbbmm Plate 05/22/2015 37879-Fjuaohop Plate 11/23/2016 77792-Gnnhtash Plate 08/26/2017 24049-Zdhjsmax Plate 05/29/2019 87509-Rrhdyfbu Plate 07/08/2020 25640-Blrjubqa Plate 05/05/2021 24269-Dcrwdwmf Plate 12/27/2023 58911-Nffwadtj Plate 09/07/2024 12411-Qrxzcwyp Plate Each Additional 77154-Ebbuaisb Plate Each Additional 11192-Zwpasolr Plate Each Additional 01/2014 15489-Mtbpmbad Plate Each Additional 03/2015 32932- Debride <25 sq cm 08/09/2013 56956- Debride <25 sq cm 05/21/2014 92363- Debride <25 sq cm 12/25/2019 77823 I&D ABSCESS- SIMPLE,SINGLE 022 40089 I&D ABSCESS- SIMPLE,SINGLE 015 32487 I&D ABSCESS- SIMPLE,SINGLE 015 Next Appt Details Provider Name:Mari Chowdhury , 05/10/2025 11:30:00 AM, [address] [place], [address], Insurance Providers Payer Name Payer Address Payer Phone Subscriber Number Group Number Insured Name Patient Relationship to Insured Coverage Start Date Coverage End Date Medicare National [facility] [employer] [address] [place] [address] [id number] Cande Marx Self - patient is the insured [employer] [address] [place] [address] [id number] Cande Marx Self - patient is the insured Medical (General) History Medical History History ICD Code transfusions hypertension chicken pox Stroke Surgical History Surgery Date(Month/Year) appendectomy 1960 breast surgery 1967 cholecystectomy 1969 basal cell removal forehead and right le g 07/2015 biopsy of neck 08/2024 Hospitalization History Reason Date(Month/Year) [place]- [place]- Diarrhea 06/2018 [facility] [place] 08/09 [facility] [place] Le[place] and GI Infection 11/06/23 [facility] [place] Infection 12/09/23-12/16/23 [facility] Er- right knee pain couldn't walk
--- OUTSIDE RECORDS SUMMARY | 2025-03-02 07:20 | XMS_ITS | Encounter Summary ---
Author Organization [facility] Address [address] [place] [address] Care Team Providers Care Answering Service Operator Name Role Phone Jonna Nieto MD Primary Care Prov ider Reason for Visit * Reason Onset Date Comments faxed form 01/31/2025 [facility] form 01/22/25 Encounter Details Date Type Department Care Team (Late st Contact Info) Description 01/31/2025 Telephone Adult [address] [address] Jonna Nieto MD [address] [place] [phone] faxed form ([employer] [facility] [facility] form 01/22/25) Social History Tobacco Use Types Packs/Day Years [...] for your loved ones. For example, child and adolescent therapist or elderly care for an older adult? [...] encounter Progress Notes * Gertrude Lara - 01/31/2025 11:44 AM EDT [facility] [facility] form 01/22/25 received please sign and fax to [phone] documented in this encounter Plan of Treatment Upcoming Encounters Date Type Department Care Team (Late st Contact Info) Description 05/21/2025 11:00 AM EDT Office Visit Pulmonolgy - [place] [address] [place] [address] Rosario Uribe NP [address] [place] [address] 06/05/2025 10:45 AM EDT Appointment Radiology Department - [address] [phone] 07/24/2025 11:30 AM EDT Office Visit Adult Medicine [facility] - [address] [phone] Jonna Nieto MD [address] [place] [address] documented as of this encounter Visit Diagnoses Not on filedocumented in this encounter Additional Health Concerns Assessment Noted Time A fall risk assessment has been complete d for the patient 10/25/2024 2:40 PM EST documented as of this encounter Care Teams Answering Service Operator Relationship Specialty Start Date End Date Jonna Nieto MD [address] [place] [address] PCP - General Internal Medicine 07/13/22 documented as of this encounter
--- OUTSIDE RECORDS SUMMARY | 2025-03-02 07:20 | XMS_ITS ---
Author Organization [facility] Address [address] [place] [address] Care Team Providers Care Direct Support Professional Caregiver Name Role Phone Jonna Childress Primary Care Provider Unava ilable Mari Chowdhury Unavailable [phone] Mcelroy Encounters Encounter Location Date Provider Diagnosis [address] [address] 07/17/2024 Mari Chowdhury Plan Of Treatment Next Appt Details Provider Name:Mari Anna Chowdhury , 05/10/2025 11:30:00 AM, [address] [place] [address], [phone], Progress Notes * Cande MARXDOB:[birth year] (84 yo F)Acc No.[id number]:07/17/2024 Progress Note Patient:?Karena MARXhleen Provider:?Mari Chowdhury DPM :1940???Age:83 Y???Sex:Female D ate:07/17/2024 Address:[address] [place] [phone] Pcp:Jonna Childress Subjective: * Chief Complaints: * [...] Chowdhury DPM Date:?2023 Generated for Autumn patel/Samuel/Pelon on:?03/02/2025 07:19 AM EDT
--- OUTSIDE RECORDS SUMMARY | 2025-03-02 07:20 | XMS_ITS ---
Author Organization [facility] Address [address] [place] [address] Care Team Providers Care Swiss Type Screw Machine Operator Name Role Phone Jonna Childress Primary Care Provider Unamarcia ilable Black, Mari Unavailable [phone] Allergies Allergen (clinical drug ingredient) Drug/Non Drug [...] Ordered Date Performed Result Body Sit e 87976-UJTQYHD NAIL, 6 OR MORE 09/07/2024 N/A 46474-Fkvgbfpn Plate 09/07/2024 N/A Encounters Encounter Location Date Provider Diagnosis [facility] [address] [address] 09/07/2024 Mari Chowdhury Tinea unguium B35.1 ; [...] Treatment Pending Test Test Name Order Date 62286-BMPZHFW NAIL, 6 OR MORE 09/07/2024 45324-Gkpcuohj Plate 09/07/2024 Next Appt Details Follow Up: 2 Weeks,prn, Reas on: Provider Name:Mari Chowdhury , 05/10/2025 11:30:00 AM, [address] [place] [address], [phone], Procedure Notes * Category Sub-Category Detail Notes [...] Motrin was recommended for pain or discomfort (01795), Pt DEFERS matricectomy Anesthesia , was accomplished [...] to continue use of a topical antifungal, (17895) Progress Notes * Cande MARXDOB:[birth year] (84 yo F)Acc No.[id number]:09/07/2024 Progress Note Patient:?Cande MARX Provider:?Mari Chowdhury DPM :1940???Age:84 Y???Sex:Female D ate:09/07/2024 Address:[address] [place], [place] [phone] Pcp:Jonna Childress Subjective: * Chief Complaints: * [...] of neck 08/2024 * Hospitalization/Major Diagno stic Procedure:?[place] Di[place] 06/2018[facility] [place]- right knee pain couldn't walk 08/2021[facility] [place] Infection 12/09/23-24H- Leak and GI Infection [...] - M79.675??? Plan: * Treatment: 2.?Tinea unguium?Procedure: 94204-PSXWIQV NAIL, 6 OR MORE * Procedures:?Debride Nail [...] to continue use of a topical antifungal, (81462).?Nail Avulsion:?Location?, Lateral nail border, T5.?Anesthesia?, was accomplished [...] Motrin was recommended for pain or discomfort (33893), Pt DEFERS matricectomy.? * Procedure Codes:?91357 DEBRI DE NAIL, 6 OR MORE, Modifiers: XS 52285 Avulsion Plate, Modifiers: T5 * Follow Up:?2 Weeks,prn * Images: * Sign off status: Completed true * Provider:?Mari Chowdhury DPM Date:?2023 Generated for Autumn patel/Samuel/Pelon on:?03/02/2025 07:19 AM EDT History and Physical Notes * HPI [...]
--- OUTSIDE RECORDS SUMMARY | 2025-03-02 07:20 | XMS_ITS | Continuity of Care Document ---
Author Organization [facility] Address [address] [place] [address] Phone Care Team Providers Care Supervisor [employer] Name Role Phone Loyd TO, Niecy Unavailable [...] E&M Established 15 Mins- [place] & [place] [facility], [address] [place] [address] [address], [id number], [place] tel:[phone] [facility] Varicose veins of left lower extremity with other complication sRestless legs syndromeAthe rosclerotic heart disease of [place] coronary artery without angina pectorisCoro nary atherosclero sis due to lipid rich plaqueCerebr al infarction, unspecified 4 Loyd Pemberton. [address] [place] [address], [place], [place], [id number], [place]. tel:[phone] [facility], [address] [place] [address] Dr Yin [address], [id number], [place] tel:[phone] [facility] Encounter for follow-up examination after completed treatment for conditions other than malignant neVaricose veins of left lower extremity with pain 4 Milton BECKER RVT, NOAH Hewitt. [address] [place] [address], [facility] [place], [id number], [place]. tel:[phone] Referring Provider: Kash Rose MD, RVT, NOAH, [address] [place] [address], [id number]. tel:[phone] [facility], [address] [place] [address] Dr Yin [address], [id number], [place] tel:[phone] [facility] Encounter for follow-up examination after completed treatment for conditions other than malignant neVaricose veins of left lower extremity with pain 4 Milton BECKER RVT, NOAH Hewitt. [address] [place], [place] [address]jim gonzalez [place], [id number], [place]. tel:[phone] Referring Provider: Kash Rose MD, RVT, NOAH, [address] [place] [address], [id number]. tel:[phone] [facility], [address] [place] [address] Dr Yin [address], [id number], [place] tel:[phone] [facility] [place] Varicose veins of left lower extremity with other complication s 4 Milton BECKER, JUANA, NOAH Hewitt. [address] [place] [address], [facility] [place] [id number], [place]. tel:[phone] Referring Provider: Kash Rose MD, JUANA, NOAH, [address] [place] [address], [place], [address]. tel:[phone] Offic/outpt E&m Estab 5 Min Trial- Telemedicine [place] & [place] [facility], [address] [place] [address] [address], [place], [id number], [place] tel:[phone] [facility] Venous insufficienc y (chronic) (peripheral) Restless legs syndromeAthe rosclerotic heart disease of [place] coronary artery without angina pectorisCoro nary atherosclero sis due to lipid rich plaqueCerebr al infarction, unspecified 4 Hyun Ortega. [address] [place] [address], [facility] [place], [id number], [place]. tel:[phone] Referring Provider: Jonna Ackerman, [address] [place] [address], [address]. tel:[phone] Office/Oupt E&M New Pt 30 Mins- CT & [place] [facility], [address] [place] [address] [address], [place], [id number], [place] tel:[phone] [facility] [place] Pruritus, unspecifiedV aricose veins of left lower extremity with other complication Jerald in right lower legPain in left lower legRestless legs syndromeEsse ntial (primary) hypertension Atherosclero tic heart disease of [place] coronary artery without angina pectorisCoro nary atherosclero sis due to lipid rich plaqueCerebr al infarction, unspecified 4 Milton BECKER, JUANA, NOAH Hewitt. [address] [address], [facility] [place], [id number], [place]. tel:[phone] Referring Provider: Jonna Ackerman, [address] [place] [address], [address]. tel:[phone] [facility], [address], [place], [id number], [place] tel:[phone] [facility] [place] Chronic venous hypertension (idiopathic) with other complication s of bilateral lower extremity Milton BECKER, RVT, RPVI Kash. [address], [address], [place], [place], [id number], [place]. tel:[phone] Referring Provider: Jonna Soto MD [facility], [address] [place] [address], [address]. tel:[phone] Family History Family Member Type Diagnosis Age At Onset No Information Payers Payer name Insurance type Covered green party ID Authoriza tion(s) Medicare NEYDA BARNARD [id number] BCBS NEYDA [id number] Medical Assistance NEYDA [id number] Social History Type Description Quantity Date Captured [...]
--- OUTSIDE RECORDS SUMMARY | 2025-03-02 07:20 | XMS_ITS | Clinical Summary ---
Author Organization [address] [facility] Address [address] [place] [address] Phone Care Team Providers Care Licensing Officer Name Role Phone Jonna Nieto MD Primary Care Prov ider Allergies Active Allergy Reactions Criticality Noted Date Comments Codeine 08/03/2022 Intolerance, burping, esophageal irritation Penicillin G Procaine Hives 09/23/2005 Terbinafine High 08/03/2007 Other Reaction(s): Rash/Dermatitis Medications Lactobacillus acidophilus (PROBIOTIC ORAL) Take by mouth. Activ e acetaminophen (TYLENOL) 500 mg tablet Take 2 Tabs by mouth 3 times daily as needed. Active clotrimazole-b etamethasone (LOTRISONE) 1-0.05 % cream 1 APPLICATION EXTERNALLY [...] as needed for Diarrhea. 01/12/20 24 Active melatonin 3 mg tablet Take [...] if needed for rash. 11/11/19 25 Active cholecalcifero l, vitD3,/vit K2 (vitamin D3-vitamin K2) 125-90 mcg capsule Take 1 capsule by mouth 1 (one) time each day. Active metoprolol tartrate (LOPRESSOR) 50 mg tablet TAKE 1/2 TABLET TWICE A DAY BY MOUTH 30 tablet 5 12/11/19 25 Active KLOR-CON 20 mEq CR tablet TAKE 1 TABLET BY MOUTH EVERY DAY 90 tablet 01/10/20 25 Active losartan (COZAAR) 50 mg tablet TAKE 1 TABLET BY MOUTH EVERY DAY (NEED MED D CARD) 90 tablet 1 02/03/20 25 Active pantoprazole (PROTONIX) 40 mg EC tablet TAKE 1 TABLET BY MOUTH EVERY DAY 90 tablet 02/06/20 25 Active nitrofurantoin , macrocrystal-m onohydrate, (MACROBID) 100 mg capsule Take 1 capsule (100 mg total) by mouth 2 (two) times a day for 5 days. 10 each 03/01/20 25 025 Active zinc gluconate 50 mg tablet Take 1 Tablet by mouth daily. 11/15/19 24 025 Discontinued(T herapy completed) losartan (COZAAR) 50 mg tablet TAKE 1 TABLET BY MOUTH EVERY DAY 06/22/20 24 025 Discontinued ascorbic acid (VITAMIN C) 500 mg tablet Take 1 tablet (500 mg total) by mouth 1 (one) time each day. 025 Discontinued(T herapy completed) pantoprazole (PROTONIX) 40 mg EC tablet TAKE 1 TABLET BY MOUTH EVERY DAY 90 tablet 01/03/20 25 025 Discontinued Active Problems Problem Noted Date Diagnosed Date Overweight (BMI 25.0-29.9) 02/21/2025 Pneumonia 12/07/2024 Hemiplegia and hemiparesis f ollowing cerebral infarction affecting right dominant side ([facility] V24, [facility] V28) 12/07/2024 History of falling 12/07/2024 Personal history of urinary (tract) infections 0 12/07/2024 Personal history of malignant melanoma of skin 0 12/07/2024 MCC (current) use of anticoagulants 2024 Unspecified mood (affective) disorder ([facility] V 24) 12/07/2024 Gastroesophageal reflux disease without [...] her vulvar skin from her diaper. A-fib ([facility] V24, [facility] V28) 11/24/2023 Overview (09/21/2024): Last Assessment & [...] Encounters Date Type Department Care Team Description 02/21/2025 10:04 AM EDT - 02/21/2025 11:59 PM EDT Hospital Encounter Radiology Department - [address] [phone] Anticoagulated on Eliquis; Pain and swelling of right lower extremity Discharge Disposition: Home or Self Care 02/21/2025 10:04 AM EDT - 02/21/2025 11:59 PM EDT Hospital Encounter XRAY - [address] [phone] Lung nodules Discharge Disposition: Home or Self Care 02/21/2025 9:00 AM EDT Office Visit Adult Medicine [address] [phone] Jennifer Willingham PA Hypercholesterolemia (Primary Dx); Benign essential hypertension; Atrial fibrillation, unspecified type (CMS/HCC V24, CMS/HCC V28); Anticoagulated on Eliquis; Pain and swelling of right lower extremity; Overweight (BMI 25.0-29.9) 02/16/2025 10:50 AM EDT Consult Pulmonolgy - [address] [place] [phone] Rosario Jean NP Lung nodules (Primary Dx); PND (post-nasal drip); Recurrent infections; Overweight 02/08/2025 9:14 AM EDT - 02/08/2025 11:59 PM EDT Hospital Encounter Radiology Department - [address] [phone] scan; Breast calcifications Discharge Disposition: Home or Self Care 01/31/[address] [phone] Jonna Null MD faxed form ([facility] form 01/22/25) 01/22/[address] [phone] Jonna Null MD orders 01/12/[address] [phone] Jaleesa Negron, RN Faxed Order ([facility] home health order tracking# [id number]) 12/22/[address] [phone] Jaleesa Negron, RN Faxed Order ([facility] Discharge Summary Order Tracking# [id number]) 12/11/[address] [phone] Makeda Atkinson LPN Fitting for DME 12/08/2024 9:02 AM EST - 12/08/2024 11:59 PM EST Hospital Encounter CT Scan - [address] [phone] Pneumonia of both lungs due to infectious organism, unspecified part of lung Discharge Disposition: Home or Self Care 12/08/[address] [phone] Jenny Day [place] faxed order ([employer] [facility] tracking #[id number], #[id number]\, #[id number]) 12/07/2024 Billing Patient Not Present [address] [phone] Jonna Null MD Aspiration pneumonia, unspecified aspiration pneumonia type, [...] of skin; Gastroesophageal reflux disease without esophagitis from Last 3 Months Immunizations Name Administration Dates Next Due Pfizer SARS-CoV-2 COVID-19, mRNA, LNP-S, preservative free 01/14/2021 Pneumococcal conjugate 13 va lent (Prevnar 13, PCV13) 2mo and older 07/06/2016 Pneumococcal polysaccharide 23 valent (Pneumovax 23) 2yo and older 05/09/2008 Td, Unspecified 09/18/2004 Tdap Tetanus diptheria acell ular pertussis (Boostrix; Adacel) 7yo and older 08/06/2023,07/10/2013 Surgical History Surgery Date Site/Laterality Comments BREAST LUMPECTOMY Left cyst rwemoved long time ago SALPINGOOPHORECTOMY PROCEDURE: [facility] LAPAROSCOPY W/RMVL ADNEXAL STRUCTURES; COMMENT: cyst removed APPENDECTOMY 1964 PROCEDURE: NH APPENDECTOMY CHOLECYSTECTOMY 1968 PROCEDURE: NH LAPAROSCOPY SURG CHOLECYSTECTOMY FINE NEEDLE ASPIRATION PROCEDURE: FINE NDLE ASPRTN W/IMAGING GUIDANCE; COMMENT: lt. breast bx-benign BREAST SURGERY PROCEDURE: NH UNLISTED PROCEDURE BREAST; COMMENT: lt. cyst removed... [...] care for your loved ones. For example, children teacher or elderly care for an older [...] Sign Reading Time Taken Comments Blood Pressure 137/72 02/21/2025 8:41 AM EDT Pulse 85 02/21/2025 8:41 AM EDT Temperature 36.2 ??C (97.2 ??F) 02/21/2025 8:41 AM ED T Respiratory Rate 12 02/21/2025 8:41 AM EDT Oxygen Saturation 99% 02/21/2025 8:41 AM EDT Inhaled Oxygen Concentration - - Weight 74.1 kg (163 lb 6.4 oz) 02/21/2025 8:41 A M EDT Height 160 cm (5' 3 ) 02/21/2025 8:41 AM EDT Body Mass Index 28.95 02/21/2025 8:41 AM EDT Plan of Treatment Upcoming Encounters Date Type Department Care Team (Late st Contact Info) Description 05/21/2025 11:00 AM EDT Office Visit Pulmonolgy - [place] [address] [facility] [address] [place] [phone] Rosario Uribe, ZULEIKA [address] [place] [address] 06/05/2025 10:45 AM EDT Appointment Radiology Department - [address] [phone] 07/24/2025 11:30 AM EDT Office Visit Adult Medicine East - [address] [phone] Jonna Nieto MD [address], [place] Health Maintenance Due Date Last Done Comments Zoster Vaccines (1 of 2) 1959 RSV Immunization Adult Patients (1 - 1-dose 75+ series) 2015 Osteoporosis Screening (Bone Density Screening) 09/26/2022 COVID-19 Vaccine ( season) 2024 01/14/2021, 12/24/2020, 12/03/2020 Influenza Vaccine (Season Ended) 2025 Depression Screening 07/19/2025 07/19/2024 Medicare Annual Wellness Visit 07/19/2025 07/19/2024 Falls Risk Assessment 10/25/2025 10/25/2024 Social Influencers of Health Screening 10/25/2025 10/25/2024 Hypertension/CHF/CAD Annual BMP Blood Test 02/21/2026 02/21/2025, 10/25/2024, 09/19/2024, Additional history exists Cholesterol Screening (Lipid Panel) 09/19/2029 09/19/2024, 09/19/2024, [...] Procedure Name Priority Date/Time Associated Diagnosis Comments CULTURE URINE Routine 02/22/2025 10:27 AM EDT Lung nodules Recurrent infections Decreased GFR Urinary tract infection with hematuria, site unspecified VAS US DUPLEX LOWER EXT VENOUS RIGHT STAT 02/21/2025 10:53 AM EDT Anticoagulated on Eliquis Pain and swelling of right lower extremity XR CHEST 2 VIEWS Routine 02/21/2025 10:1 0 AM EDT Lung nodules BASIC METABOLIC PANEL Routine 02/21/2025 9:50 AM EDT Decreased GFR IMMUNOGLOBULIN IGA Routine 02/21/2025 9: 50 AM EDT Lung nodules Recurrent infections IMMUNOGLOBULIN IGG Routine 02/21/2025 9: 50 AM EDT Lung nodules Recurrent infections IMMUNOGLOBULIN IGE Routine 02/21/2025 9: 50 AM EDT Lung nodules Recurrent infections INTERFERON GAMMA INTERPRETATION Routine 02/21/2025 9:49 AM EDT Lung nodules Recurrent infections Decreased GFR Urinary tract infection with hematuria, site unspecified INTERFERON GAMMA ANTIGEN 2 Routine 02/21/2025 9:49 AM EDT Lung nodules Recurrent infections Decreased GFR Urinary tract infection with hematuria, site unspecified INTERFERON GAMMA ANTIGEN 1 Routine 02/21/2025 9:49 AM EDT Lung nodules Recurrent infections Decreased GFR Urinary tract infection with hematuria, site unspecified INTERFERON GAMMA MITOGEN Routine 02/21/2025 9:49 AM EDT Lung nodules Recurrent infections Decreased GFR Urinary tract infection with hematuria, site unspecified INTERFERON GAMMA NIL Routine 02/21/2025 9:49 AM EDT Lung nodules Recurrent infections Decreased GFR Urinary tract infection with hematuria, site unspecified INTERFERON GAMMA FOR TB, QUALITATIVE Routine 02/21/2025 9:49 AM EDT Lung nodules Recurrent infections Decreased GFR Urinary tract infection with hematuria, site unspecified MG MAMMO DIGITAL DIAGNOSTIC W ELLIOTT BILAT Routine 02/08/2025 10:13 AM EDT Abnormal finding on CT scan Breast calcifications EXTERNAL CT REPORT Routine 01/09/2025 9: [address] REPORT Routine 01/09/2025 9: [address] CHEST WO CONTRAST Routine 12/08/2024 9:25 AM EST Pneumonia of both lungs due to infectious organism, unspecified part of lung LIPID PANEL WITH REFLEX TO DIRECT LDL Routine 09/19/2024 11:59 AM EST Benign hypertension Hypercholesterolemia Prediabetes DEPRESSION SCREENING Routine 07/19/2024 from Last 3 Months or Most Recently Relevant to Health Maintenance Results * (ABNORMAL) Culture urine (02/22/2025 10:27 AM EDT) Culture, Urine >100,000 CFU/mL Escherichia coli(A) MONI 02/24/2025 8:24 AM EDT [facility] Comment: This is an edited result. Previous organism was Gram negative bacilli on 02/23/2025 at 0824 EDT. Urine Urine specimen obtained by clean catch procedure / Unknown Non-blood Collection / Unknown 02/22/2025 10:27 AM EDT 02/22/2025 10:27 AM EDT Narrative Organism Antibiotic Method Susceptibility Escherichia coli Amoxicillin/Clavulanate MONI 4 ug/ml: Susceptible Escherichia coli Ampicillin/Sulbactam MONI 4 ug/ml: Susceptible Escherichia coli Piperacillin/Tazobactam MONI <=4 ug/ml: Susceptible Escherichia coli Cefazolin (Urine) MONI 4 ug/ml: Susceptible Escherichia coli Cefoxitin MONI <=4 ug/ml: Susceptible Escherichia coli Ceftazidime MONI <=0.5 ug/ml: Susceptible Escherichia coli Ceftriaxone MONI <=0.25 ug/ml: Susceptible Escherichia coli Cefepime MONI <=0.12 ug/ml: Susceptible Escherichia coli Meropenem MONI <=0.25 ug/ml: Susceptible Escherichia coli Amikacin MONI 2 ug/ml: Susceptible Escherichia coli Gentamicin MONI <=1 ug/ml: Susceptible Escherichia coli Ciprofloxacin MONI <=0.06 ug/ml: Susceptible Escherichia coli Levofloxacin MONI <=0.12 ug/ml: Susceptible Escherichia coli Nitrofurantoin MONI <=16 ug/ml: Susceptible Escherichia coli Trimethoprim/Sulfamethoxazole MONI <=20 ug/ml: Susceptible us [facility] LAB MICROBIOLOGY - GENERAL ORDER MATTEO Final Result [facility] [address] [place] [address], * Vascular US duplex lower extremity venous right (02/21/2025 10:53 AM EDT) Anatomical Region Laterality Modality Vascular, Abdomen Ultrasound 02/21/2025 11:0 0 AM EDT Impressions 02/21/2025 11:01 AM EDT No ultrasound evidence of deep venous thrombus in the right leg at this time from the upper groin throughout the calf. -------- FINAL REPORT -------- Dictated By: Pita Vazquez Dictated Date: 02/21/2025 11:00 ET Assigned Physician: Pita Vazquez Reviewed and Electronically Signed By: Pita Vazquez Signed Date: 02/21/2025 11:01 ET Workstation ID: [id number] Transcribed By: Self Edit Transcribed Date: 02/21/2025 11:00 ET Narrative 02/21/2025 11:01 AM EDT VAS US DUPLEX LOWER EXT VENOUS RIGHT VENOUS ULTRASOUND, RIGHT LOWER EXTREMITY HISTORY: ??Pain and edema in the right lung. Procedure: Venous ultrasound of the right leg was performed from the upper groin throughout the calf. FINDINGS: ??No echogenic thrombus was seen. ??The deep venous system throughout the right leg was compressible. ??There was normal waveform respiratory phasicity. There was normal augmentation of color flow and duplex Doppler wave form throughout the deep venous system during compression at the ankle. No fluid or cyst is seen in the popliteal fossa. Procedure Note Pita Vazquez MD - 02/21/2025 VAS US DUPLEX LOWER EXT VENOUS RIGHT VENOUS ULTRASOUND, RIGHT LOWER EXTREMITY HISTORY: Pain and edema in the right lung. Procedure: Venous ultrasound of the right leg was performed from the uppergroin throughout the calf. FINDINGS: No echogenic thrombus was seen. The deep venous systemthroughout the right leg was compressible. There was normal waveformrespiratory phasicity. There was normal augmentation of color flow andduplex Doppler wave form throughout the deep venous system duringcompression at the ankle. No fluid or cyst is seen in the poplitealfossa. IMPRESSION: No ultrasound evidence of deep venous thrombus in the right leg at thistime from the upper groin throughout the calf. -------- FINAL REPORT -------- Dictated By: Pita Vazquez Dictated Date: 02/21/2025 11:00 ET Assigned Physician: Pita Vazquez Reviewed and Electronically Signed By: Pita Vazquez Signed Date: 02/21/2025 11:01 ET Workstation ID: [id number] Transcribed By: Self Edit Transcribed Date: 02/21/2025 11:00 ET us Jennifer [facility] CV VASCULAR PROCEDURES Final Re sult * XR Chest 2 Views (02/21/2025 10:10 AM EDT) Anatomical Region Laterality Modality Body Radiographic Marianne ging 02/21/2025 2:34 PM EDT Impressions 02/21/2025 2:38 PM EDT 1. Persistent mildly prominent interstitial markings within the bilateral lower lung zones. ??Differential considerations include viral process versus chronic changes. 2. please note pulmonary nodules are better demonstrated on prior chest CT -------- FINAL REPORT -------- Dictated By: Miriam Jacob Dictated Date: 02/21/2025 14:34 ET Assigned Physician: Miriam Jacob Reviewed and Electronically Signed By: Miriam Jacob Signed Date: 02/21/2025 14:38 ET Workstation ID: [id number] Transcribed By: Self Edit Transcribed Date: 02/21/2025 14:34 ET Narrative 02/21/2025 2:38 PM EDT HISTORY: nodules and infection presentation follow up TECHNIQUE: PA and lateral radiographs of the chest COMPARISON: Chest radiograph from 11/02/2024 FINDINGS: There is a normal cardiomediastinal silhouette. ??Persistent mildly prominent interstitial markings within the bilateral lower lung zones. ??No focal consolidation. ??Moderate degenerative changes of the thoracic spine. Procedure Note Miriam Jacob MD - 02/21/2025 HISTORY: nodules and infection presentation follow up TECHNIQUE: PA and lateral radiographs of the chest COMPARISON: Chest radiograph from 11/02/2024 FINDINGS: There is a normal cardiomediastinal silhouette. Persistent mildlyprominent interstitial markings within the bilateral lower lung zones. Nofocal consolidation. Moderate degenerative changes of the thoracicspine. IMPRESSION: 1. Persistent mildly prominent interstitial markings within the bilaterallower lung zones. Differential considerations include viral processversus chronic changes. 2. please note pulmonary nodules are better demonstrated on prior chestCT -------- FINAL REPORT -------- Dictated By: Miriam Jacob Dictated Date: 02/21/2025 14:34 ET Assigned Physician: Miriam Jacob Reviewed and Electronically Signed By: Miriam Jacob Signed Date: 02/21/2025 14:38 ET Workstation ID: [id number] Transcribed By: Self Edit Transcribed Date: 02/21/2025 14:34 ET us Rosario Uribe SUPERVISOR OF INSTRUCTION IMG XR PROCEDURES Final Result * Immunoglobulin IgE (02/21/2025 9:50 AM EDT) IgE 126.6 0.0 - 158.0 I Unit/mL LAB CHEMISTRY METHOD 02/21/2025 2:29 PM EDT [facility] Blood Venous blood specimen / Unknown Venipuncture / Unknown 02/21/2025 9:50 AM EDT 02/21/2025 9:50 AM EDT Rosario Uribe SUPERVISOR [employer] INSTRUCTION LAB BLOOD ORDERABLES Fi nal Result Performing Organization Address City/[facility]/ZIP Co de Phone Number [facility] [address] [place] [address], [place] [phone] * Immunoglobulin IgA (02/21/2025 9:50 AM EDT) IgA 236 61 - 348 mg/dL LAB CHEMISTRY METHOD 02/21/2025 1:16 PM EDT [facility] Blood Venous blood specimen / Unknown Venipuncture / Unknown 02/21/2025 9:50 AM EDT 02/21/2025 9:50 AM EDT Rosario Uribe SUPERVISOR [employer] INSTRUCTION LAB BLOOD ORDERABLES Fi nal Result [facility] [address] [place] [address], [place] [phone] * Immunoglobulin IgG (02/21/2025 9:50 AM EDT) Total IgG 1,010 549 - 1,584 mg/dL LAB CHEMISTRY METHOD 02/21/2025 1:16 PM EDT [facility] Blood Venous blood specimen / Unknown Venipuncture / Unknown 02/21/2025 9:50 AM EDT 02/21/2025 9:50 AM EDT Rosario Uribe SUPERVISOR [employer] INSTRUCTION LAB BLOOD ORDERABLES Fi nal Result [facility] [address] [place] [address], * Basic metabolic panel (02/21/2025 9:50 AM EDT) Sodium 138 133 - 145 mmol/L LAB CHEMISTRY METHOD 02/21/2025 1:16 PM [facility] Potassium 3.9 3.5 - 5.5 mmol/L LAB CHEMISTRY METHOD 02/21/2025 1:16 PM [facility] Chloride 106 96 - 110 mmol/L LAB CHEMISTRY METHOD 02/21/2025 1:16 PM [facility] CO2 25 21 - 32 mmol/L LAB CHEMISTRY METHOD 02/21/2025 1:16 PM [facility] Anion Gap 7 3 - 11 LAB CHEMISTRY METHOD 02/21/2025 1:16 PM [facility] Glucose 93 70 - 100 mg/dL LAB CHEMISTRY METHOD 02/21/2025 1:16 PM [facility] BUN 24 5 - 25 mg/dL LAB CHEMISTRY METHOD 02/21/2025 1:16 PM [facility] Creatinine 0.92 0.50 - 1.10 mg/dL LAB CHEMISTRY METHOD 02/21/2025 1:16 PM [facility] eGFR 62 >=60 mL/min/1. 73m2 LAB CHEMISTRY METHOD 02/21/2025 1:16 PM [facility] Comment:Calculation based on the Chronic Kidney Disease Epidemiology Collaboration (CKD-EPI) equation refit without adjustment for race. BUN/Creatinine Ratio 26.1 LAB CHEMISTRY METHOD 02/21/2025 1:16 PM [facility] Calcium 9.6 8.5 - 10.5 mg/dL LAB CHEMISTRY METHOD 02/21/2025 1:16 PM [facility] Blood Venous blood specimen / Unknown Venipuncture / Unknown 02/21/2025 9:50 AM EDT 02/21/2025 9:50 AM EDT [facility] LAB BLOOD ORDERABLES Final Resul t [facility] [address] [place] [address], [place] [phone] * Interferon gamma interpretation (02/21/2025 9:49 AM EDT) [facility] Quantiferon Plus Interpretation Negative Negative LAB CHEMISTRY METHOD 02/22/2025 10:44 AM EDT [facility] Blood Venous blood specimen / Unknown Venipuncture / Unknown 02/21/2025 9:49 AM EDT 02/21/2025 9:49 AM EDT Rosario Uribe SUPERVISOR OF INSTRUCTION LAB BLOOD ORDERABLES Fi nal Result Performing Organization Address City/[facility]/ZIP Co de Phone Number [facility] [address] [place] [address], [place] [phone] * Interferon gamma antigen 2 (02/21/2025 9:49 AM EDT) Blood Venous blood specimen / Unknown Venipuncture / Unknown 02/21/2025 9:49 AM EDT 02/21/2025 9:49 AM EDT Rosario Uribe SUPERVISOR [employer] INSTRUCTION LAB BLOOD ORDERABLES Fi nal Result Performing Organization Address City/[facility]/ZIP Co de Phone Number [facility] [address] [place] [address], [place] [phone] * Inteferon gamma antigen 1 (02/21/2025 9:49 AM EDT) Blood Venous blood specimen / Unknown Venipuncture / Unknown 02/21/2025 9:49 AM EDT 02/21/2025 9:49 AM EDT Rosario Rony SUPERVISOR OF INSTRUCTION LAB BLOOD ORDERABLES Fi nal Result [facility] [address] [place] [address], [place] [phone] * Interferon gamma mitogen (02/21/2025 9:49 AM EDT) Blood Venous blood specimen / Unknown Venipuncture / Unknown 02/21/2025 9:49 AM EDT 02/21/2025 9:49 AM EDT Rosario Minispringmarcia SUPERVISOR OF INSTRUCTION LAB BLOOD ORDERABLES Fi nal Result Performing Organization Address [facility]/ZIP Co de Phone Number [facility] [address] [place] [address], [place] [phone] * Interferon gamma NIL (02/21/2025 9:49 AM EDT) Blood Venous blood specimen / Unknown Venipuncture / Unknown 02/21/2025 9:49 AM EDT 02/21/2025 9:49 AM EDT Rosario Chestermarcia SUPERVISOR OF INSTRUCTION LAB BLOOD ORDERABLES Fi nal Result Performing Organization Address [facility] Co de Phone Number [facility] [address] [place] [address], [place] [phone] * MG Mammo Digital Diagnostic w Elliott bilat (02/08/2025 10:13 AM EDT) Anatomical Region Laterality Modality Breast Bilateral Mammography 02/08/2025 1:35 PM EDT Impressions 02/08/2025 1:49 PM EDT 1. No mammographic evidence of malignancy 2. Heterogeneously dense breast tissue ?? BI-RADS CATEGORY: 2 - BENIGN RECOMMENDATION: Return to annual mammography. Return to annual mammography. Mammo Location: [facility], [address] [place] [address], [id number], . -------- FINAL REPORT -------- Dictated By: Miriam Jacob Dictated Date: 02/08/2025 13:35 ET Assigned Physician: Miriam Jacob Reviewed and Electronically Signed By: Miriam Jacob Signed Date: 02/08/2025 13:49 ET Workstation ID: [id number] Transcribed By: Self Edit Transcribed Date: 02/08/2025 13:42 ET Narrative 02/08/2025 1:49 PM EDT BILATERAL DIGITAL 3D DIAGNOSTIC MAMMOGRAPHY HISTORY: Workup for right breast calcification seen on outside CT of the chest COMPARISON: Multiple mammograms dating back to 09/20/2017. Technique: Bilateral CC and MLO full field views, right breast CC and ML magnification views FINDINGS: BREAST DENSITY: C - The breasts are heterogeneously dense which may obscure small masses. Right: No suspicious masses, microcalcifications or areas of architectural distortion. ??The upper outer calcifications seen on prior CT at middle depth is typically benign. Left: No suspicious masses, microcalcifications or areas of architectural distortion. ??Stable typically benign parenchymal asymmetries. Procedure Note Miriam Jacob MD - 02/08/2025 BILATERAL DIGITAL 3D DIAGNOSTIC MAMMOGRAPHY HISTORY: Workup for right breast calcification seen on outside CT of thechest COMPARISON: Multiple mammograms dating back to 09/20/2017. Technique: Bilateral CC and MLO full field views, right breast CC and MLmagnification views FINDINGS: BREAST DENSITY: C - The breasts are heterogeneously dense which mayobscure small masses. Right: No suspicious masses, microcalcifications or areas of architecturaldistortion. The upper outer calcifications seen on prior CT at middledepth is typically benign. Left: No suspicious masses, microcalcifications or areas of architecturaldistortion. Stable typically benign parenchymal asymmetries. IMPRESSION: 1. No mammographic evidence of malignancy 2. Heterogeneously dense breast tissue BI-RADS CATEGORY: 2 - BENIGN RECOMMENDATION: Return to annual mammography. Return to annual mammography. Mammo Location: [facility], [address] [place] [address], [id number], . -------- FINAL REPORT -------- Dictated By: Miriam Jacob Dictated Date: 02/08/2025 13:35 ET Assigned Physician: Miriam Jacob Reviewed and Electronically Signed By: Miriam Jacob Signed Date: 02/08/2025 13:49 ET Workstation ID: [id number] Transcribed By: Self Edit Transcribed Date: 02/08/2025 13:42 ET [facility] IMG BI PROCEDURES Final Result * External CT Report (01/09/2025 9:27 AM EDT) Only the most recent of2 resultswithin the time period is included. Anatomical Region Laterality Modality Computed Tomogra phy Historical Provider IMG CT PROCEDURES Final R esult * CT [...] Signed Date: 12/08/2024 14:52 ET Workstation ID: [id number] Transcribed By: Self Edit Transcribed Date: 12/08/2024 14:20 ET Narrative 12/08/2024 2:[address] CHEST WO CONTRAST TECHNIQUE: Multidetector CT of the chest was performed without intravenous contrast. COMPARISON: Chest CT on November 06, 2024 and November 02, 2024 HISTORY: Abnormal chest CT [facility] 11/02/2024. ??4-week follow-up on acute inflammatory versus [...] November 02, [address]: Ab[address] chest [address] [facility] 11/02/2024. 4-nwxhpykprr-vo on acute inflammatory versus infectious processes involvinglingula, [...] the prior studies degraded by motion. Confluent oomy-nv-fbzgcobxdyfcf in the posterolateral aspect of the right [...] Signed Date: 12/08/2024 14:52 ET Workstation ID: [id number] Transcribed By: Self Edit Transcribed Date: 12/08/2024 14:20 ET Katina [facility] CT PROCEDURES Final Result * (ABNORMAL) Lipid panel with reflex to direct LDL (09/19/2024 11:59 AM EST) Cholesterol 228(H) 0 - 200 mg/dL LAB CHEMISTRY METHOD 09/19/2024 2:37 PM EST [facility] Triglycerides 200(H) 0 - 150 mg/dL LAB CHEMISTRY METHOD 09/19/2024 2:[address] [facility] HDL 50 >=40 mg/dL LAB CHEMISTRY METHOD 09/19/2024 2:[address] [facility] LDL Calculated 138(H) 0 - 100 mg/dL LAB CHEMISTRY METHOD 09/19/2024 2:[address] [facility] VLDL Cholesterol Edmundo 40 mg/dL LAB CHEMISTRY METHOD 09/19/2024 2:[address] [facility] Non HDL Chol. (LDL+VLDL) 178(H) <145 mg/dL LAB CHEMISTRY METHOD 09/19/2024 2:[address] [facility] Chol/HDL Ratio 4.6(H) 0.0 - 4.4 LAB CHEMISTRY METHOD 09/19/2024 2:[address] [facility] Blood Venous blood specimen / Unknown Venipuncture / Unknown 09/19/2024 11:59 AM EST 09/19/2024 11:59 AM EST Jennifer [facility] LAB BLOOD ORDERABLES Final Resu lt [facility] [address] [place] [address], * Depression Screening (07/19/2024) [facility] Depression Screening Abstracted Historical Provider HEALTH MAINTENANCE Final Result from Last 3 Months or Most Recently Relevant to Health Maintenance Insurance MEDICARE [id number] [place]ICAID [place] Care Teams Licensing Officer Relationship Specialty Start Date End Date Jonna Nieto MD [address] [place] [id number] PCP - General Internal Medicine 07/13/22
--- OUTSIDE RECORDS SUMMARY | 2025-03-02 07:20 | XMS_ITS | Encounter Summary ---
[facility] [address] [place] [address] Care Team Providers Care Gum Rolling Machine Tender Name Role Phone Jonna Nieto MD Primary Care Prov ider Encounter Details Date Type Department Care Team (Late st Contact Info) Description 08/08/2024 4:47 PM EDT Hospital Encounter TH HISTORIC ENCOUNTERS EASTERN CONVERSION ONLY Jennifer Willingham, ALEXANDR[address] [place] [address] Social History Tobacco Use Types Packs/Day Years [...] your loved ones. For example, early childhood specialist or elderly care for an older [...] 11:00 AM EDT Office Visit Pulmonolgy - [place] [address] [place] [id number] Rosario Uribe NP [address] [place] [address] 06/05/2025 10:45 AM EDT Appointment Radiology Department - [address] [phone] 07/24/2025 11:30 AM EDT Office Visit [facility] [address] [phone] Jonna Nieto MD [address] [place] [address] documented as of this encounter Visit Diagnoses Not on filedocumented in this encounter Care Teams Gum Rolling Machine Tender Relationship Specialty Start Date End Date Jonna Nieto MD [address] [place] [address] PCP - General Internal Medicine 07/13/22 documented as of this encounter
[2025-03-02 07:45] LABS: Basophils Percent Auto 0.2 % (0-2); Eosinophils Absolute Auto 0.2 X10*3/uL (0.0-0.4); Eosinophils Percent Auto 1.4 % (0-4); Hematocrit 37.5 % (37.0-47.0); Hemoglobin 12.6 g/dl (12.0-16.0); Imm Gran Abs Auto 0.08 X10*3/uL (0.00-0.03); Imm Gran Pct Auto 0.5 % (0.0-0.4); Lymphocytes Absolute Auto 1.4 X10*3/uL (1.2-4.9); Lymphocytes Percent Auto 8.5 % (20-40); MANUAL DIFF FLAG SCAN; Mean Corpuscular HGB Conc 33.6 g/dl (31.0-35.0); Mean Corpuscular Hemoglobin 29.9 pg (27.0-33.0); Mean Corpuscular Volume 89.1 fL (80.0-98.0); Monocytes Absolute Auto 0.8 X10*3/uL (0.1-1.2); Monocytes Percent Auto 4.8 % (2-11); Neutrophils Absolute Auto 14.2 x10*3/uL (2.0-8.3); Neutrophils Percent Auto 84.6 % (45-73); PLT CLUMP 1; Red Blood Count 4.21 X10*6/uL (4.20-5.50); Red Cell Distribution Width 13.2 % (11.0-16.0); SCAN SMEAR FLAG 1
[2025-03-02 07:53] LABS: White Blood Count 16.7 X10*3/uL (4.8-10.8)
--- NOTE | 2025-03-02 08:08 | ED_ITS ---
HPI - General Adult General Chief complaint: General Medical Stated complaint: VASOVAGAL Time Seen by Provider: 03/02/25 07:12 History of Present Illness HPI narrative: Patient is an 84-year-old female presented today from home. Has a history of vasovagal episodes. Has a history of atrial fibrillation currently on Eliquis. No history of RI in the past. Presented today he she was at the sink in the bathroom had a sudden onset of lightheadedness dizziness there is no chest pain. Son went to grab a wheelchair got her in a chair then she subsequently had a brief moment of loss of consciousness regain mental status immediately patient is sent in for further evaluation. Has a history of during the same in the past. There was no head strike. There is no trauma. Related Data Home Medications ?Medication ?Instructions ?Recorded ?Confirmed losartan 50 mg tablet 50 mg PO DAILY 10/01/23 11/07/24 kjqvmqeocdjm-clwdyxph-banstq tablet 1 tab PO DAILY 10/01/23 11/07/24 pantoprazole 40 mg tablet,delayed 40 mg PO DAILY@0630 10/01/23 11/07/24 release apixaban 5 mg tablet (Eliquis) 5 mg PO BID 10/10/23 11/07/24 melatonin 3 mg tablet 6 mg PO BEDTIME Sleep 10/10/23 11/07/24 metoprolol tartrate 50 mg tablet 25 mg PO BID 10/21/23 11/07/24 nystatin 100,000 unit/gram topical 1 appl topical QID PRN Rash 10/21/23 11/07/24 powder cranberry fruit 450 mg tablet 450 mg PO BID 12/08/23 11/07/24 (cranberry) ketoconazole 2 % topical cream 1 appl topical BID PRN Rash 12/08/23 11/07/24 loperamide 2 mg capsule 4 mg PO QID PRN Diarrhea 01/21/24 11/07/24 acetaminophen 500 mg tablet 1,000 mg PO TID PRN Pain 11/02/24 11/07/24 ascorbic acid (vitamin C) 500 mg 500 mg PO DAILY 11/02/24 11/07/24 tablet (Vitamin C) clotrimazole-betamethasone 1 1 appl topical BID PRN Rash 11/02/24 11/07/24 %-0.05 % topical cream potassium chloride 20 mEq 20 meq PO DAILY 11/02/24 11/07/24 tablet,extended release vitamin D3 125 mcg (5,000 1 cap PO DAILY 11/02/24 11/07/24 unit)-vitamin K2 90 mcg capsule gabapentin 100 mg capsule 200 mg PO BEDTIME 11/07/24 11/07/24 Previous Rx's ?Medication ?Instructions ?Recorded walker (Ultra-Light Rollator misc) #1 ea 08/22/21 amlodipine 5 mg tablet 2.5 mg (1/2 x 5 mg) PO DAILY #30 12/11/23 tabs doxycycline monohydrate 100 mg 100 mg PO BID #6 caps 11/04/24 capsule Allergies Allergy/AdvReac Type Severity Reaction Status Date / Time codeine Allergy Unknown rash Verified 03/02/25 07:02 Penicillins AdvReac Hives Verified 03/02/25 07:02 terbinafine [From Lamisil] AdvReac Hives Verified 03/02/25 07:02 Review of Systems 2 Review of Systems: No head injury no chest pain no palpitation Yes all other systems are reviewed and are negative [facility] Past Medical History Attestation statement: The following information was validated with the patient. Medical History Vitamin D deficiency Multifocal pneumonia Atrial fibrillation Pyuria Episode of syncope Urinary tract infection Syncope, vasovagal Right hemiparesis HLD (hyperlipidemia) Atrial fibrillation History of malignant melanoma History of basal cell carcinoma History of dysplastic nevus Degenerative joint disease (DJD) of hip Low back pain radiating to left lower extremity History of squamous cell carcinoma Venous insufficiency (chronic) (peripheral) Diarrhea Hypertension Surgical History H/O breast biopsy Hx of colonoscopy Hx of cholecystectomy Hx of appendectomy Family History Family History Father Throat cancer Mother Kidney failure Social History Social History Household Members: Family Housing: House Do you presently have visiting nurse or other home services: Yes Alcohol intake: current Alcohol intake frequency: 0-2 drinks per day Alcohol type: wine Comment: pt aware she needs to ask for help before getting up Patient Tobacco Use Status: Never used Tobacco Advance Directives: Yes Advance Directives on File: Yes Advance Directives Date on File: 11/02/23 service: No Physical Exam ED Vital Signs: Vital Signs - 24 hr 03/02/25 06:59 03/02/25 08:48 03/02/25 08:51 Temperature 97.8 F Pulse Rate 68 78 86 Respiratory Rate 14 Blood Pressure 126/51 L 147/62 H 113/71 Pulse Oximetry 93 Oxygen Delivery Method Room Air 03/02/25 08:53 03/02/25 12:49 Temperature 97.8 F Pulse Rate 93 88 Respiratory Rate 18 Blood Pressure 144/72 H 138/49 L Pulse Oximetry 94 Oxygen Delivery Method Room Air BMI result Body Mass Index 28.9 Appearance: Alert. Oriented X3. No acute distress. Eyes: Pupils equal, round and reactive to light. ENT: Pharynx normal. Neck: Normal inspection. Neck supple. No lymph nodes noted. No crepitus CVS: Normal heart rate and rhythm. Pulses normal. Normal S1 and S2 Respiratory: No respiratory distress. Breath sounds normal. No Wheezing. No rales Abdomen: Soft and nontender. No rigidity. No distention. good BS x4 Skin: Skin warm and dry. Normal skin color. Normal skin turgor. Extremities: No lower extremity edema. Neurovascular intact to all extremities. No Lacerations. No Rash Neuro: Oriented X 3. No motor deficit. No sensory deficit. Moving all extermities. No slurred speech Medications Administered Discontinued Medications Generic Name Dose Route Start Last Admin Trade Name Freq PRN Reason Stop Dose Admin Sodium Chloride 1,000 mls @ 999 mls/hr 03/02/25 08:15 03/02/25 10:48 Ns IV 03/02/25 09:15 Infused .Q1H1M MILI Infusion Medical Decision Making Medical Decision Making MDM Narrative: My interpretation of patient's EKG shows an atrial fibrillation pattern heart rate is approximately 70 QRS is normal QTC is normal no acute ST segment elevation. Patient's hemoglobin is 12.6 this is approximately baseline. There is no trauma did not hit her head neurologically intact felt at this time she does not need a CTA of the head. Her labs are pending. Patient not orthostatic. Hemoglobin is 12.6 this is approximately baseline there is no evidence of bleeding. Has a history of vasovagal events. Was recently diagnosed with UTI just started on antibiotics yesterday. Patient's COVID flu RSV were all negative. White count elevation may be related to the UTI. Had a previous history of UTIs in the past. Two sets of cardiac enzymes are negative. My interpretation of patient's chest x-ray was negative. Blood pressure is 126/51. In no acute distress ambulated well in the emergency department not orthostatic. Joint decision was made to discharge patient home close follow-up on an outpatient basis. Doubt patient has PE as patient is on blood thinners. Differential Diagnosis Differential Diagnoses: The differential diagnosis associated with the presentation includes Vasovagal syncope Admission/Observation Consideration of admission/observation: Escalation of care including admission/observation considered Lab Data MDM Lab Attestation statement: I reviewed the patient's lab results. 03/02/25 07:22 03/02/25 08:17 Labs: Lab Results 03/02/25 03/02/25 03/02/25 Range/Units 07:22 08:17 12:03 WBC 16.7 H (4.8-10.8) X10*3/uL RBC 4.21 (4.20-5.50) X10*6/uL Hgb 12.6 (12.0-16.0) g/dl Hct 37.5 (37.0-47.0) % MCV 89.1 (80.0-98.0) fL MCH 29.9 (27.0-33.0) pg MCHC 33.6 (31.0-35.0) g/dl RDW 13.2 (11.0-16.0) % Plt Count 243 D (160-400) X10*3/uL MPV 11.0 (9.4-12.3) fL Immature Gran % (Auto) 0.5 H (0.0-0.4) % Neut % (Auto) 84.6 H (45-73) % Lymph % (Auto) 8.5 L (20-40) % [place] % (Auto) 4.8 (2-11) % Eos % (Auto) 1.4 (0-4) % Baso % (Auto) 0.2 (0-2) % Lymph # (Auto) 1.4 (1.2-4.9) X10*3/uL [place] # (Auto) 0.8 (0.1-1.2) X10*3/uL Eos # (Auto) 0.2 (0.0-0.4) X10*3/uL Baso # (Auto) 0.0 (0.0-0.2) X10*3/uL Abs Immat Gran (auto) 0.08 H (0.00-0.03) X10*3/uL Absolute Neuts (auto) 14.2 H (2.0-8.3) x10*3/uL Absolute Nucleated RBC 0.000 (0.0-0.012) X10*3/uL Nucleated RBC % (auto) 0.0 (0.0-0.2) /100WBC Smear Tech's Comments VERIFIED Sodium 139 (135-145) mmol/L Potassium 4.1 (3.3-5.1) mmol/L Chloride 105 (96-108) mmol/L Carbon Dioxide 22 (22-29) mmol/L Anion Gap 16 (12-20) BUN 21 H (9-16) mg/dL Creatinine 0.92 (0.5-1.4) mg/dL Estim Creat Clear Calc 43.8 Estimated GFR 58 Random Glucose 96 (60-115) mg/dL Calcium 9.9 (8.4-10.2) mg/dL Total Bilirubin 0.6 (0.0-1.0) mg/dL AST 30 (5-31) U/L ALT 15 (0-31) U/L Alkaline Phosphatase 93 (39-117) U/L Troponin I High Sens 3.1 D 5.2 D (<3.5-17.0) ng/L Total Protein 7.4 (6.5-8.0) g/dL Albumin 4.2 (3.5-5.0) g/dL Influenza Type A (PCR) NEGATIVE (Negative) Influenza Type B (PCR) NEGATIVE (Negative) RSV RNA Qual (PCR) NEGATIVE (Negative) SARS-CoV-2 RNA (RT-PCR) NEGATIVE (Negative) Independent Interpretation I performed an independent interpretation of an: EKG (Please see above) and Plain X-Ray (Grossly negative) Radiology Impression Discussion of test interpretation with radiology: I have reviewed the radiologist's reading. Independent Historian Clinical information obtained from an independent historian. History obtained from or confirmed by: Spouse External Record Review External record reviewed: Outpatient record Chronic Conditions Atrial fibrillation Social Determinants Patient?s care significantly limited by Social Determinants of Health including: Problems related to primary support group Discharge Plan Discharge Clinical Impression: Vasovagal syncope Patient Disposition: Home, Self-Care Instructions: Syncope (DC) Prescriptions: No Action (DME) Ultra-Light Rollator Misc See Rx Instructions .Route Qty: 1 0RF Rx Instructions: As directed metoprolol tartrate 50 mg tablet 25 mg PO BID nystatin 100,000 unit/gram powder 1 appl topical QID PRN (Reason: Rash) ascorbic acid (vitamin C) [Vitamin C] 500 mg Tablet 500 mg PO DAILY clotrimazole-betamethasone 1-0.05 % Cream 1 appl TOPICAL BID PRN (Reason: Rash) vitamin D3-vitamin K2 125-90 mcg Capsule 1 cap PO DAILY acetaminophen 500 mg Tablet 1,000 mg PO TID PRN (Reason: Pain) potassium chloride 20 mEq tablet extended release 20 meq PO DAILY Rx Instructions: take for 4 days than check labs doxycycline monohydrate 100 mg capsule 100 mg PO BID Qty: 6 0RF gabapentin 100 mg capsule 200 mg PO BEDTIME ketoconazole 2 % cream 1 appl topical BID PRN (Reason: Rash) cranberry 450 mg Tablet 450 mg PO BID Rx Instructions: administer with meals amlodipine 5 mg tablet 2.5 mg PO DAILY Qty: 30 0RF pantoprazole 40 mg tablet,delayed release (DR/EC) 40 mg PO DAILY@0630 losartan 50 mg tablet 50 mg PO DAILY [id number]-jtcqiycu-mqofqt Tablet 1 tab PO DAILY Eliquis 5 mg tablet 5 mg PO BID melatonin 3 mg tablet 6 mg PO BEDTIME loperamide 2 mg capsule 4 mg PO QID PRN (Reason: Diarrhea) Referrals: Physician,Unknown J [Primary Care Provider] - 03/05/25 Print Language: Zambian
[2025-03-02 08:14] LABS: Platelet Count 243 X10*3/uL (160-400); SLIDE REVIEW VERIFIED
[2025-03-02 08:45] LABS: Alanine Aminotransferase 15 U/L (0-31); Albumin Level 4.2 g/dL (3.5-5.0); Alkaline Phosphatase 93 U/L (39-117); Anion Gap 16 (12-20); Aspartate Amino Transferase 30 U/L (5-31); Bilirubin Total 0.6 mg/dL (0.0-1.0); Blood Urea Nitrogen 21 mg/dL (9-16); Calcium 9.9 mg/dL (8.4-10.2); Carbon Dioxide 22 mmol/L (22-29); Chloride 105 mmol/L (96-108); Creatinine Clr Calc Pharmacy 43.8; Estimated Glomerular Filt Rate 58; Glucose Random 96 mg/dL (60-115); Potassium 4.1 mmol/L (3.3-5.1); Sodium 139 mmol/L (135-145); Total Protein 7.4 g/dL (6.5-8.0)
[2025-03-02 08:48] VITALS: BP 147/62; PULSE 78
[2025-03-02 08:49] LABS: Troponin-I High Sensitivity 3.1 ng/L (<3.5-17.0)
[2025-03-02 08:51] VITALS: BP 113/71; PULSE 86
[2025-03-02 08:53] VITALS: BP 144/72; PULSE 93
[2025-03-02] MEDS: 0.9 % Sodium Chloride 1,000 ML 999 ML IV (09:23)
[2025-03-02 12:33] LABS: Troponin-I High Sensitivity 5.2 ng/L (<3.5-17.0)
[2025-03-02 12:49] VITALS: BP 138/49; PULSE 88; RESP 18; TEMP 36.6; O2SAT 94
[2025-03-02 12:52] LABS: Influenza A PCR NEGATIVE (Negative); Influenza B PCR NEGATIVE (Negative); Resp Syncy Virus RNA Qual PCR NEGATIVE (Negative); SARS COV2 PCR INHOUSE NEGATIVE (Negative)
== END 2025-03-02 16:00 | disposition home or self-care (01) ==
PROVIDERS: Emergency Provider Emergency Medicine Emergency Medical Services
DX: R55 Syncope and collapse (principal); R42 Dizziness and giddiness; Z79.899 Other long term (current) drug therapy; Z79.01 Long term (current) use of anticoagulants; Z03.818 Encounter for observation for suspected exposure to other biological agents ruled out
CPT/HCPCS: 0241U; 36415; 71045; 80053; 84484; 85025; 96360; 99284

== ENCOUNTER → 2025-03-02 11:04 | Outpatient (BNV) | payer MEDICARE, MEDICAID, SELFPAY | PROVIDERS: Emergency Provider Emergency Medicine Emergency Medical Services; Visit Provider Radiology Diagnostic Radiology | DX: R06.02 Shortness of breath (principal) | CPT/HCPCS: 71045 ==

== ENCOUNTER 2025-03-05 09:06 | Emergency (ER) | payer MEDICARE, MEDICAID, SELFPAY ==
[2025-03-05] VITALS (9 sets, daily range): BP systolic 98–153; BP diastolic 46–81; PULSE 71–101; RESP 16–23; TEMP 36.6–37.3; O2SAT 92–97; BMI 28.9
--- NOTE | 2025-03-05 09:35 | ECG_ITS ---
Test Reason : SYNCOPE Blood Pressure : */* mmHG Vent. Rate : 91 BPM Atrial Rate : * BPM P-R Int : * ms QRS Dur : 82 ms QT Int : 380 ms P-R-T Axes : * 35 -56 degrees QTcB Int : 467 ms Atrial fibrillation Anterior infarct (cited on or before 02-Nov-2024) ST & T wave abnormality, consider lateral ischemia Abnormal ECG When compared with ECG of 02-Mar-2025 07:23, Nonspecific T wave abnormality now evident in Inferior leads T wave inversion now evident in Anterior leads Referred By: Sophia Langford Electronically Signed By: Cortez Del Angel
--- NOTE | 2025-03-05 09:35 | ED_ITS ---
HPI - General Adult General Chief complaint: Syncope Stated complaint: SYNCOPE USING BR, MINOR CONFUSION, UTI PER EMS Time Seen by Provider: 03/05/25 09:34 History of Present Illness ED Provider: Dr. Langford HPI narrative: 84 y/o F patient; PMH atrial fibrillation on Eliquis, hx CVA with residual right-sided weakness, HTN, HLD, mood disorder, GERD; presents from home via EMS with report of approx 1 minute syncopal episode today while using the bathroom. Family is currently interested in SNF placement. Patient last seen in this emergency department 03/02/2025 for similar episode. She had reassuring CXR, labs, x2 troponins. Her orthostatic vital signs were negative. Related Data Home Medications ?Medication ?Instructions ?Recorded ?Confirmed losartan 50 mg tablet 50 mg PO DAILY 10/01/23 03/06/25 xxmnlmvefsbj-havlhmrt-oagiff tablet 1 tab PO DAILY 10/01/23 03/06/25 pantoprazole 40 mg tablet,delayed 40 mg PO DAILY@0630 10/01/23 03/06/25 release apixaban 5 mg tablet (Eliquis) 5 mg PO BID 10/10/23 03/06/25 melatonin 3 mg tablet 6 mg PO BEDTIME Sleep 10/10/23 03/06/25 metoprolol tartrate 50 mg tablet 25 mg PO BID 10/21/23 03/06/25 cranberry fruit 450 mg tablet 450 mg PO BID 12/08/23 03/06/25 (cranberry) loperamide 2 mg capsule 4 mg PO QID PRN Diarrhea 01/21/24 03/06/25 acetaminophen 500 mg tablet 1,000 mg PO TID PRN Pain 11/02/24 03/06/25 potassium chloride 20 mEq 20 meq PO DAILY 11/02/24 03/06/25 tablet,extended release vitamin D3 125 mcg (5,000 1 cap PO DAILY 11/02/24 03/06/25 unit)-vitamin K2 90 mcg capsule gabapentin 100 mg capsule 200 mg PO BEDTIME 11/07/24 03/06/25 amlodipine 2.5 mg tablet 2.5 mg PO DAILY 03/06/25 03/06/25 nitrofurantoin 1 cap PO BID 03/06/25 03/06/25 monohydrate/macrocrystals 100 mg capsule Previous Rx's ?Medication ?Instructions ?Recorded walker (Ultra-Light Rollator misc) #1 ea 08/22/21 Allergies Allergy/AdvReac Type Severity Reaction Status Date / Time codeine Allergy Unknown rash Verified 03/05/25 09:21 Penicillins AdvReac Hives Verified 03/05/25 09:21 terbinafine [From Lamisil] AdvReac Hives Verified 03/05/25 09:21 Review of Systems 2 Review of Systems: Yes all other systems are reviewed and are negative Neurologic: Denies Abnormal speech present and Denies Sensory deficit (Neuro) [facility] Past Medical History Attestation statement: The following information was validated with the patient. Source: old records reviewed Medical History Vitamin D deficiency Multifocal pneumonia Atrial fibrillation Pyuria Episode of syncope Urinary tract infection Syncope, vasovagal Right hemiparesis HLD (hyperlipidemia) Atrial fibrillation History of malignant melanoma History of basal cell carcinoma History of dysplastic nevus Degenerative joint disease (DJD) of hip Low back pain radiating to left lower extremity History of squamous cell carcinoma Venous insufficiency (chronic) (peripheral) Diarrhea Hypertension Surgical History H/O breast biopsy Hx of colonoscopy Hx of cholecystectomy Hx of appendectomy Family History Family History Father Throat cancer Mother Kidney failure Social History Social History Household Members: Family Housing: House Do you presently have visiting nurse or other home services: Yes Alcohol intake: current Alcohol intake frequency: 0-2 drinks per day Alcohol type: wine Comment: pt aware she needs to ask for help before getting up Patient Tobacco Use Status: Never used Tobacco Advance Directives Date on File: 11/02/23 service: No Physical Exam ED Vital Signs: Vital Signs - 24 hr 03/05/25 15:51 03/05/25 18:46 03/05/25 20:54 Temperature 98.1 F 98.1 F Pulse Rate 82 89 101 H Respiratory Rate 21 H 16 19 Blood Pressure 112/61 121/61 153/81 H Pulse Oximetry 95 96 96 Oxygen Delivery Method Room Air Room Air Room Air 03/05/25 22:22 03/06/25 05:39 03/06/25 06:10 Temperature 98.9 F Pulse Rate 78 81 Respiratory Rate 18 16 Blood Pressure 131/58 L 128/63 Pulse Oximetry 97 97 98 Oxygen Delivery Method Room Air Room Air Room Air 03/06/25 10:34 03/06/25 14:31 Temperature 97.9 F Pulse Rate 84 81 Respiratory Rate 19 18 Blood Pressure 130/57 L 160/78 H Pulse Oximetry 100 98 Oxygen Delivery Method Room Air Room Air BMI result Body Mass Index 28.9 Patient is afebrile and hemodynamically stable Const General: cooperative Orientation/consciousness: patient oriented x3 HENMT Head: Yes normal to inspection and Yes atraumatic Eyes General: appearance normal, both eyes and all related structures Pupils: Equal, round and reactive pupils present EOM: EOMs intact bilaterally Neck Neck: Yes normal visual inspection, Yes full ROM, Yes supple and No tender Chest Chest palpation & inspection: normal inspection of the chest and normal palpation of entire chest wall Resp Effort & Inspection: normal respiratory effort, able to speak in complete sentences and no cough Auscultation: clear to auscultation bilaterally Cardio Rate: regular rate Rhythm: regular rhythm Peripheral pulses: Peripheral pulses 2+ throughout GI Inspection: No Abdominal wall edema and No distended Palpation (GI): Soft to palpation, not firm, nontender, no guarding and not rigid Auscultation: normal bowel sounds Back/Spine/Pelvis Back: No back tenderness Neuro General: patient oriented x3 Cranial nerves: Yes Equal, round and reactive pupils present Cognition (Neuro): normal cognition Speech: No Abnormal speech present Gait exam (Neuro): Normal gait present Motor exam (neuro): 5/5 motor strength present throughout Sensory Exam: No Sensory deficit (Neuro) Course Course Course Narrative: Patient is afebrile and hemodynamically stable. Will obtain screening labs and EKG. Labs reviewed. No significant leukocytosis or anemia. Case management and physical therapy consultation requested. Diet ordered. 1008 Mala Miller PA-C Observation continues. Pharmacy continues to work on patient's med reconciliation. 03/06/25 1600 Observation care revealed that patient does not meet medical necessity for hospitalization. Final disposition discussed with patient. The patient completed observation care at 1600. Medications Administered Discontinued Medications Generic Name Dose Route Start Last Admin Trade Name Freq PRN Reason Stop Dose Admin Amlodipine Besylate 2.5 mg 03/06/25 13:15 03/06/25 14:35 Amlodipine Besylate 2.5 Mg Tablet PO 2.5 mg DAILY MILI Administration Protocol Apixaban 5 mg 03/06/25 13:15 03/06/25 13:29 Apixaban 5 Mg Tablet PO 5 mg BID MILI Administration Losartan Potassium 50 mg 03/06/25 13:15 03/06/25 13:30 Losartan Potassium 50 Mg Tablet PO 50 mg DAILY MILI Administration Protocol Metoprolol Tartrate 25 mg 03/06/25 13:15 03/06/25 13:29 Metoprolol Tartrate 25 Mg Tablet PO 25 mg BID MILI Administration Protocol Multivitamins/Vitamin C 1 tab 03/06/25 13:15 03/06/25 13:29 Multivitamin Tablet PO 1 tab DAILY MILI Administration Nitrofurantoin Macrocrystals 100 mg 03/06/25 13:15 03/06/25 13:29 Nitrofurantoin Monohyd/M-Cryst 100 Mg Capsule PO 03/08/25 21:01 100 mg BID MILI Administration Potassium Chloride 20 meq 03/06/25 13:15 03/06/25 13:32 Potassium Chloride Er 20 Meq Tab.Er.Prt PO 20 meq DAILY MILI Administration Medical Decision Making Lab Data 03/05/25 10:24 03/05/25 10:24 Labs: Lab Results 03/05/25 03/05/25 03/06/25 Range/Units 10:24 12:48 05:38 WBC 12.5 H (4.8-10.8) X10*3/uL RBC 4.08 L (4.20-5.50) X10*6/uL Hgb 12.4 (12.0-16.0) g/dl Hct 37.3 (37.0-47.0) % MCV 91.4 (80.0-98.0) fL MCH 30.4 (27.0-33.0) pg MCHC 33.2 (31.0-35.0) g/dl RDW 13.9 (11.0-16.0) % Plt Count 264 (160-400) X10*3/uL MPV 10.1 (9.4-12.3) fL Immature Gran % (Auto) 0.4 (0.0-0.4) % Neut % (Auto) 87.5 H (45-73) % Lymph % (Auto) 3.6 L (20-40) % [place] % (Auto) 3.4 (2-11) % Eos % (Auto) 4.9 H (0-4) % Baso % (Auto) 0.2 (0-2) % Lymph # (Auto) 0.5 L (1.2-4.9) X10*3/uL [place] # (Auto) 0.4 (0.1-1.2) X10*3/uL Eos # (Auto) 0.6 H (0.0-0.4) X10*3/uL Baso # (Auto) 0.0 (0.0-0.2) X10*3/uL Abs Immat Gran (auto) 0.05 H (0.00-0.03) X10*3/uL Absolute Neuts (auto) 11.0 H (2.0-8.3) x10*3/uL Absolute Nucleated RBC 0.000 (0.0-0.012) X10*3/uL Nucleated RBC % (auto) 0.0 (0.0-0.2) /100WBC Sodium 135 (135-145) mmol/L Potassium 3.9 (3.3-5.1) mmol/L Chloride 102 (96-108) mmol/L Carbon Dioxide 24 (22-29) mmol/L Anion Gap 13 (12-20) BUN 26 H (9-16) mg/dL Creatinine 1.23 (0.5-1.4) mg/dL Estim Creat Clear Calc 32.7 Estimated GFR 42 Random Glucose 148 H (60-115) mg/dL Calcium 9.9 (8.4-10.2) mg/dL Total Bilirubin 0.7 (0.0-1.0) mg/dL Direct Bilirubin 0.3 (0.0-0.5) mg/dL AST 23 (5-31) U/L ALT 17 (0-31) U/L Alkaline Phosphatase 77 (39-117) U/L Total Protein 6.8 (6.5-8.0) g/dL Albumin 3.7 (3.5-5.0) g/dL Urine Color Yellow Urine Appearance Clear Urine pH 6.0 (5.0-9.0) Ur Specific [place] 1.015 (1.005-1.025) Urine Protein Trace (Neg-Trace) mg/dL Urine Glucose (UA) Negative (Negative) mg/dL Urine Ketones Trace (Negative) mg/dL Urine Blood Small (1+) H (Negative) Urine Nitrite Negative (Negative) Ur Leukocyte Esterase Trace H (Negative) Urine RBC 11-20 H (0-2) /HPF Urine WBC 0-5 (0-5) /HPF Ur Squamous Epith Cells 3-5 (0-2) /HPF Urine Bacteria 1+ (None Seen) Hyaline Casts 0-2 (0-2) /LPF Influenza Type A (PCR) NEGATIVE (Negative) Influenza Type B (PCR) NEGATIVE (Negative) RSV RNA Qual (PCR) NEGATIVE (Negative) SARS-CoV-2 RNA (RT-PCR) NEGATIVE (Negative) Independent Interpretation I performed an independent interpretation of an: EKG Interpretation: NSR 91BPM with normal intervals. Discharge Plan Discharge Clinical Impression: Syncope Patient Disposition: Xfer Inpatient Rehab Fac Transfer Details: TO: [address] [place], [phone] Prescriptions: No Action (DME) Ultra-Light Rollator Misc See Rx Instructions .Route Qty: 1 0RF Rx Instructions: As directed metoprolol tartrate 50 mg tablet 25 mg PO BID vitamin D3-vitamin K2 125-90 mcg Capsule 1 cap PO DAILY acetaminophen 500 mg Tablet 1,000 mg PO TID PRN (Reason: Pain) potassium chloride 20 mEq tablet extended release 20 meq PO DAILY Rx Instructions: take for 4 days than check labs gabapentin 100 mg capsule 200 mg PO BEDTIME amlodipine 2.5 mg tablet 2.5 mg PO DAILY nitrofurantoin monohyd/m-cryst 100 mg capsule 1 cap PO BID cranberry 450 mg Tablet 450 mg PO BID Rx Instructions: administer with meals pantoprazole 40 mg tablet,delayed release (DR/EC) 40 mg PO DAILY@0630 losartan 50 mg tablet 50 mg PO DAILY esahvazjwysu-twhxfucd-vkwobr Tablet 1 tab PO DAILY Eliquis 5 mg tablet 5 mg PO BID melatonin 3 mg tablet 6 mg PO BEDTIME loperamide 2 mg capsule 4 mg PO QID PRN (Reason: Diarrhea) Referrals: [facility] [Other] Jonna Dillard MD [Primary Care Provider] - Interventions: ED Discharge Assessment Last Done: 03/06/25 16:13 Discharge Date/Time: 03/06/25 16:28 Print Language: Pakistani
--- OUTSIDE RECORDS SUMMARY | 2025-03-05 09:46 | XMS_ITS | Clinical Summary ---
Author Organization 175 [facility] Address [address] [place] [address] Phone Care Team Providers Care Structural Ironworker Name Role Phone Jonna Nieto MD Primary [...] daily. 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 A-fib ([facility] V24, [facility] V28) 11/24/2023 Overview (09/21/2024): Last Assessment & [...] PM EDT Hospital Encounter Radiology Department - [address] [phone] Anticoagulated on Eliquis; Pain and swelling of right lower extremity Discharge Disposition: Home or Self Care 02/21/2025 10:04 AM EDT - 02/21/2025 11:59 PM EDT Hospital Encounter XRAY - [address] [phone] Lung nodules Discharge Disposition: Home or Self Care 02/21/2025 9:00 AM EDT Office Visit Adult Medicine [address] [phone] Jennifer Willingham PA Hypercholesterolemia (Primary Dx); Benign essential hypertension; Atrial fibrillation, unspecified type (CMS/HCC V24, CMS/HCC V28); Anticoagulated on Eliquis; Pain and swelling of right lower extremity; Overweight (BMI 25.0-29.9) 02/16/2025 10:50 AM EDT Consult Pulmonolgy - [address] [place] [address] Rosario Jean NP Lung nodules (Primary Dx); PND (post-nasal drip); Recurrent infections; Overweight 02/08/2025 9:14 AM EDT - 02/08/2025 11:59 PM EDT Hospital Encounter Radiology Department - [address] [phone] scan; Breast calcifications Discharge Disposition: Home or Self Care 01/31/2025 Telephone Adult Medicine [address] [phone] Jonna Null MD faxed form ([facility] form 01/22/25) 01/22/2025 Telephone Adult [address] [phone] Jonna Null MD orders 01/12/[address] [phone] Jaleesa Negron, RN Faxed Order ([facility] home health order tracking# [id number]) 12/22/[address] [phone] Jaleesa Negron, RN Faxed Order ([facility] Discharge Summary Order Tracking# [id number]) 12/11/2024 [place] Adult [address] [phone] Makeda Atkinson LPN Fitting for DME 12/08/2024 9:02 AM EST - 12/08/2024 11:59 PM EST Hospital Encounter CT Scan [address] [phone] Pneumonia of both lungs due to infectious organism, unspecified part of lung Discharge Disposition: Home or Self Care 12/08/2024 Telephone Adult [address] [phone] Jenny Day [place] faxed order ([facility] tracking #[id number], #[id number]\, #[id number]) 12/07/2024 Billing Patient Not Present Adult [address] [phone] Jonna Null MD Aspiration pneumonia, unspecified aspiration [...] cyst rwemoved long time ago SALPINGOOPHORECTOMY PROCEDURE: [place] LAPAROSCOPY W/RMVL ADNEXAL STRUCTURES; COMMENT: cyst removed APPENDECTOMY 1965 PROCEDURE: [place]Y APPENDECTOMY CHOLECYSTECTOMY 1968 PROCEDURE: [place] LAPAROSCOPY SURG CHOLECYSTECTOMY FINE NEEDLE ASPIRATION PROCEDURE: FINE NDLE ASPRTN W/IMAGING GUIDANCE; COMMENT: lt. breast bx-benign BREAST SURGERY PROCEDURE: W[place] UNLISTED PROCEDURE BREAST; COMMENT: lt. cyst removed... [...] loved ones. For example, child and adolescent psychologist or elderly care for an older adult? [...] 11:00 AM EDT Office Visit Pulmonolgy - [place] [address] [place] [address] Rosario Uribe NP [address] [address] 06/05/2025 10:45 AM EDT Appointment Radiology Department [address] [phone] 07/24/2025 11:30 AM EDT Office Visit Adult Medicine [place] [address] [phone] Jonna Nieto MD [address] [place] [address] Health Maintenance Due Date Last Done Comments [...] (ABNORMAL) Culture urine (02/22/2025 10:27 AM EDT) [facility] Signature Culture, Urine >100,000 CFU/mL Escherichia coli(A) MONI 02/24/2025 8:24 AM EDT [facility] Comment: This is an edited result. [...] MICROBIOLOGY - GENERAL ORDER MATTEO Final Result [facility] ([facility]) [facility] [address] [place] [address], [place] [phone] * Vascular US duplex lower extremity venous [...] Signed Date: 02/21/2025 11:01 ET Workstation ID: [id number] Transcribed By: Self Edit Transcribed Date: 02/21/2025 [...] Signed Date: 02/21/2025 11:01 ET Workstation ID: [id number] Transcribed By: Self Edit Transcribed Date: 02/21/2025 [...] Signed Date: 02/21/2025 14:38 ET Workstation ID: [id number] Transcribed By: Self Edit Transcribed Date: 02/21/2025 [...] Signed Date: 02/21/2025 14:38 ET Workstation ID: [id number] Transcribed By: Self Edit Transcribed Date: 02/21/2025 14:34 ET us Rosario Uribe MUSIC PUBLISHER IMG XR PROCEDURES Final Result * Immunoglobulin IgE (02/21/2025 9:50 AM EDT) IgE 126.6 0.0 - 158.0 I Unit/mL LAB CHEMISTRY METHOD 02/21/2025 2:29 PM EDT [facility] Blood Venous blood specimen / Unknown Venipuncture / Unknown 02/21/2025 9:50 AM EDT 02/21/2025 9:50 AM EDT us Rosario Uribe MUSIC PUBLISHER LAB BLOOD ORDERABLES Fi nal Result Performing Organization Address City/[facility] Co de Phone Number [facility] [address] [place] [address], [place] [phone] * Immunoglobulin IgA (02/21/2025 9:50 AM EDT) IgA 236 61 - 348 mg/dL LAB CHEMISTRY METHOD 02/21/2025 1:16 PM EDT [facility] Blood Venous blood specimen / Unknown Venipuncture / Unknown 02/21/2025 9:50 AM EDT 02/21/2025 9:50 AM EDT us Rosario Uribe MUSIC PUBLISHER LAB BLOOD ORDERABLES Fi nal Result Performing Organization Address [facility] Co de Phone Number [facility] [address] [place] [address], [place] [phone] * Immunoglobulin IgG (02/21/2025 9:50 AM EDT) Total IgG 1,010 549 - 1,584 mg/dL LAB CHEMISTRY METHOD 02/21/2025 1:16 PM EDT [facility] Blood Venous blood specimen / Unknown Venipuncture / Unknown 02/21/2025 9:50 AM EDT 02/21/2025 9:50 AM EDT us Rosario Uribe MUSIC PUBLISHER LAB BLOOD ORDERABLES Fi nal Result Performing Organization Address City/[facility]/ZIP Co de Phone Number [facility] [address] [place] [address], [place] [phone] * Basic metabolic panel (02/21/2025 9:50 AM EDT) Sodium 138 133 - 145 mmol/L LAB CHEMISTRY METHOD 02/21/2025 1:16 PM [facility] Potassium 3.9 3.5 - 5.5 mmol/L LAB CHEMISTRY METHOD 02/21/2025 1:16 PM [facility] Chloride 106 96 - 110 mmol/L LAB CHEMISTRY METHOD 02/21/2025 1:16 PM [facility] CO2 25 21 - 32 mmol/L LAB CHEMISTRY METHOD 02/21/2025 1:16 PM [facility] Anion Gap 7 3 - 11 LAB CHEMISTRY METHOD 02/21/2025 1:16 PM [facility] Glucose 93 70 - 100 mg/dL LAB CHEMISTRY METHOD 02/21/2025 1:16 PM [facility] BUN 24 5 - 25 mg/dL LAB CHEMISTRY METHOD 02/21/2025 1:16 PM [facility] Creatinine 0.92 0.50 - 1.10 mg/dL LAB CHEMISTRY METHOD 02/21/2025 1:16 PM [facility] eGFR 62 >=60 mL/min/1. 73m2 LAB CHEMISTRY METHOD 02/21/2025 1:16 PM [facility] Comment:Calculation based on the Chronic Kidney Disease Epidemiology Collaboration (CKD-EPI) equation refit without adjustment for race. BUN/Creatinine Ratio 26.1 LAB CHEMISTRY METHOD 02/21/2025 1:16 PM [facility] Calcium 9.6 8.5 - 10.5 mg/dL LAB CHEMISTRY METHOD 02/21/2025 1:16 PM [facility] Blood Venous blood specimen / Unknown Venipuncture / Unknown 02/21/2025 9:50 AM EDT 02/21/2025 9:50 AM EDT Katina Resendiz PA LAB BLOOD ORDERABLES Final Resul t Performing Organization Address [facility] Co de Phone Number [facility] [address] [place] [address], [place] [phone] * Interferon gamma interpretation (02/21/2025 9:49 AM EDT) [facility] Quantiferon Plus Interpretation Negative Negative LAB CHEMISTRY METHOD 02/22/2025 10:44 AM EDT [facility] Blood Venous blood specimen / Unknown Venipuncture / Unknown 02/21/2025 9:49 AM EDT 02/21/2025 9:49 AM EDT Rosario Uribe MUSIC PUBLISHER LAB BLOOD ORDERABLES Fi nal Result Performing Organization Address [facility] Co de Phone Number [facility] [address] [place] [address], [place] [phone] * Interferon gamma antigen 2 (02/21/2025 9:49 AM EDT) Blood Venous blood specimen / Unknown Venipuncture / Unknown 02/21/2025 9:49 AM EDT 02/21/2025 9:49 AM EDT Rosario Uribe MUSIC PUBLISHER LAB BLOOD ORDERABLES Fi nal Result Performing Organization Address City/[facility]/ZIP Co de Phone Number [facility] [address] [place] [address], [place] [phone] * Inteferon gamma antigen 1 (02/21/2025 9:49 AM EDT) Blood Venous blood specimen / Unknown Venipuncture / Unknown 02/21/2025 9:49 AM EDT 02/21/2025 9:49 AM EDT Rosario Uribe MUSIC PUBLISHER LAB BLOOD ORDERABLES Fi nal Result Performing Organization Address City/[facility]/ZIP Co de Phone Number [facility] [address] [place] [address], * Interferon gamma mitogen (02/21/2025 9:49 AM EDT) Blood Venous blood specimen / Unknown Venipuncture / Unknown 02/21/2025 9:49 AM EDT 02/21/2025 9:49 AM EDT Rosario Rony MUSIC PUBLISHER LAB BLOOD ORDERABLES Fi nal Result Performing Organization Address [facility] Co de Phone Number [facility] [address] [place] [address], * Interferon gamma NIL (02/21/2025 9:49 AM EDT) Blood Venous blood specimen / Unknown Venipuncture / Unknown 02/21/2025 9:49 AM EDT 02/21/2025 9:49 AM EDT Rosario Rony MUSIC PUBLISHER LAB BLOOD ORDERABLES Fi nal Result Performing Organization Address [facility] de Phone Number [facility] [address] [place] [address], * MG Mammo Digital Diagnostic w Elliott bilat (02/08/2025 10:13 AM EDT) Anatomical Region Laterality Modality Breast Bilateral Mammography 02/08/2025 1:35 PM EDT Impressions 02/08/2025 1:49 PM EDT 1. No mammographic evidence of malignancy 2. Heterogeneously dense breast tissue ?? BI-RADS CATEGORY: 2 - BENIGN RECOMMENDATION: Return to annual mammography. Return to annual mammography. Mammo Location: [facility], [address] [place] [address], [address], . -------- FINAL REPORT -------- Dictated By: Miriam Jacob Dictated Date: 02/08/2025 13:35 ET Assigned Physician: Miriam Jacob Reviewed and Electronically Signed By: Miriam Jacob Signed Date: 02/08/2025 13:49 ET Workstation ID: [id number] Transcribed By: Self Edit Transcribed Date: 02/08/2025 [...] mammography. Return to annual mammography. Mammo Location: [facility], [address] [place] [address], [address], . -------- FINAL REPORT -------- Dictated By: Miriam Jacob Dictated Date: 02/08/2025 13:35 ET Assigned Physician: Miriam Jacob Reviewed and Electronically Signed By: Miriam Jacob Signed Date: 02/08/2025 13:49 ET Workstation ID: [id number] Transcribed By: Self Edit Transcribed Date: 02/08/2025 [...] Signed Date: 12/08/2024 14:52 ET Workstation ID: [id number] Transcribed By: Self Edit Transcribed Date: 12/08/2024 14:20 ET Narrative 12/08/2024 2:[address] CHEST WO CONTRAST TECHNIQUE: Multidetector CT of the chest was performed without intravenous contrast. COMPARISON: Chest CT on November 06, 2024 and November 02, 2024 HISTORY: Abnormal chest CT [facility] 11/02/2024. ??4-week follow-up on acute inflammatory versus [...] November 02, [address]ORY: Abnormal chest CT [facility] 11/02/2024. 5-ivyxdeanwz-fz on acute inflammatory versus infectious processes involvinglingula, [...] the prior studies degraded by motion. Confluent otud-uw-wrctdimsfraqy in the posterolateral aspect of the right [...] Signed Date: 12/08/2024 14:52 ET Workstation ID: [id number] Transcribed By: Self Edit Transcribed Date: 12/08/2024 14:20 ET Katina [facility] [place] PROCEDURES Final Result * (ABNORMAL) Lipid panel with reflex to direct LDL (09/19/2024 11:59 AM EST) Cholesterol 228(H) 0 - 200 mg/dL LAB CHEMISTRY METHOD 09/19/2024 2:37 PM EST [facility] Triglycerides 200(H) 0 - 150 mg/dL LAB CHEMISTRY METHOD 09/19/2024 2:37 PM EST [facility] HDL 50 >=40 mg/dL LAB CHEMISTRY METHOD 09/19/2024 2:37 PM EST [facility] LDL Calculated 138(H) 0 - 100 mg/dL LAB CHEMISTRY METHOD 09/19/2024 2:37 PM [facility] VLDL Cholesterol Edmundo 40 mg/dL LAB CHEMISTRY METHOD 09/19/2024 2:37 PM EST [facility] Non HDL Chol. (LDL+VLDL) 178(H) <145 mg/dL LAB CHEMISTRY METHOD 09/19/2024 2:37 PM [facility] Chol/HDL Ratio 4.6(H) 0.0 - 4.4 LAB CHEMISTRY METHOD 09/19/2024 2:37 PM [facility] Blood Venous blood specimen / Unknown Venipuncture / Unknown 09/19/2024 11:59 AM EST 09/19/2024 11:59 AM EST Jennifer MC LAB BLOOD ORDERABLES Final Resu lt [facility] [address] [place] [address], * Depression Screening (07/19/2024) [facility] Depression Screening Abstracted Historical Provider HEALTH MAINTENANCE Final Result from Last 3 Months or Most Recently Relevant to Health Maintenance Insurance MEDICARE [facility] MEDICAID [place] Care Teams Structural Ironworker Relationship Specialty Start Date End Date Jonna iNeto MD [address] [place] [address] [phone] PCP - General Internal Medicine 07/13/22
--- OUTSIDE RECORDS SUMMARY | 2025-03-05 09:46 | XMS_ITS | Encounter Summary ---
Author Organization [facility] Address [address] [place] [address] Care Team Providers Care Machine I Trimmer Name Role Phone Jonna Nieto MD Primary Care Prov ider Encounter Details Date Type Department Care Team (Late st Contact Info) Description 08/08/2024 4:47 PM EDT Hospital Encounter TH HISTORIC ENCOUNTERS EASTERN CONVERSION ONLY Jennifer Willingham, ALEXANDRO [address] [place] [address] Social History Tobacco Use Types Packs/Day Years [...] for your loved ones. For example, child development assistant or elderly care for an older adult? [...] 11:00 AM EDT Office Visit Pulmonolgy - [place] [address] [place] [phone] Rosario Uribe NP [address] [place] [address] 06/05/2025 10:45 AM EDT Appointment Radiology Department - [address] [phone] 07/24/2025 11:30 AM EDT Office Visit Adult Medicine East [address] [phone] Jonna Neito MD [address] [place] [address] documented as of this encounter Visit Diagnoses Not on filedocumented in this encounter Care Teams Machine I Trimmer Relationship Specialty Start Date End Date Jonna Nieto MD [address] [place] [address] PCP - General Internal Medicine 07/13/22 documented as of this encounter
--- OUTSIDE RECORDS SUMMARY | 2025-03-05 09:46 | XMS_ITS ---
Author Organization [facility] Address [address] [place] [address] Care Team Providers Care Mineral Mixer Name Role Phone Jonna Childress Primary Care Provider Unamarcia ilable Black, Mari Unavailable [phone] Allergies Allergen (clinical drug ingredient) Drug/Non Drug [...] Status W/U Status Risk Notes Problem Neuropathy (470992842) Neuropathy (G62.9) Active confirmed Vital Signs Height 5 ft 3 in in 01/04/2025 Weight 153 lbs 01/04/2025 BMI 27.1 kg/m2 01/04/2025 Blood pressure systolic 135 mm Hg 01/05/20 25 Blood pressure diastolic 75 mm Hg 025 Procedures Procedure Date Ordered Date Performed Result Body Sit e 68869-TFXCTOJ NAIL, 6 OR MORE 01/04/2025 N/A Encounters Encounter Location Date Provider Diagnosis [facility] [address] [address] 01/04/2025 Mari Chowdhury Tinea unguium B35.1 ; [...] Treatment Pending Test Test Name Order Date 11054-XONKPTH NAIL, 6 OR MORE 01/04/2025 Next Appt Details Follow Up: prn, Reason: Provider Name:Mari Chowdhury , 05/10/2025 11:30:00 AM, [address] [place] [address], [phone], Procedure Notes * Category Sub-Category Detail Notes [...] use of a nail nipper and/or dremel-type card grinder helper, to a more viable healthy nail plate [...] to maintain effectiveness in symptomatic relief - 58[address] Progress Notes * Karena MARXmelissateshaDOB:[birth year] (84 yo F)Acc No.[id number]:01/04/2025 Progress Note Patient:?Cande MARX Provider:?Mari Chowdhury DPM :1940???Age:84 Y???Sex:Female D ate:01/04/2025 Address:[address] [place], [place] [address] Pcp:Jonna Childress Subjective: * Chief Complaints: * [...] of neck 08/2024 * Hospitalization/Major Diagno stic Procedure:?[place]- Di[place] 06/2018[facility] [place]- right knee pain couldn't walk 08/2021[facility]- GI Infection 12/09/23-12/16/23- Leak and GI Infection [...] use of a nail nipper and/or dremel-type card grinder helper, to a more viable healthy nail plate [...] to maintain effectiveness in symptomatic relief - 533[address].? * Procedure Codes:?10512 DEBRI DE NAIL, 6 OR MORE, Modifiers: [...] Chowdhury DPM Date:?2024 Generated for Autumn patel/Samuel/Pelon on:?03/05/2025 09:46 AM EDT History and Physical Notes * [...]
--- OUTSIDE RECORDS SUMMARY | 2025-03-05 09:47 | XMS_ITS | Patient Health Record ---
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 confirmed Problem Acquired hammer toe of right foot (8969579659586369) Other hammer toe(s) (acquired), right foot (M20.41) Active confirmed Problem Neuropathy (965114712) Neuropathy (G62.9) Active confirmed Problem 38585713 Unsteady gait (R26.81) Active confirmed Problem 709930706 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) Active confirmed Problem 204125390 Equinus contracture of ankle (M24.573) Active confirmed Problem 07392885 Venous insufficiency (I87.2) Active confirmed Problem 2033578500526098 Equinus deformity of left foot (M21.6X2) Active confirmed Problem 7889583753622685 Equinus deformity of right foot (M21.6X1) Active confirmed Vital Signs Blood pressure diastolic 75 mm Hg 01/04/2025 Height 5 ft 3 in in 01/04/2025 Blood pressure systolic 135 mm Hg 01/04/2025 Weight 153 lbs 01/04/2025 BMI 27.1 kg/m2 01/04/2025 Procedures Procedure Date Ordered Date Performed Result Body Sit e 91796-CFEYRDV NAIL, 6 OR MORE 04/06/2024 N/A 20831-LCHZWUX NAIL, 6 OR MORE 09/07/2024 N/A 41685-Urdnumsl Plate 09/07/2024 N/A 28479-OIMDMGC NAIL, 6 OR MORE 01/04/2025 N/A Encounters Encounter Location Date Provider Diagnosis [address] [address] 04/06/2024 Mari Black Tinea unguium B35.1 ; Pain in right toe(s) M79.674 and Pain in left toe(s) M79.[address] [address] 09/07/2024 Mari Black Tinea unguium B35.1 ; Ingrown nail L60.0 ; Pain in right toe(s) M79.674 and Pain in left toe(s) M79.[address] [address] 01/04/2025 Mari Black Tinea unguium B35.1 ; [...] Treatment Pending Test Test Name Order Date 85607-OXOEJEM NAIL, 6 OR MORE 08/12/2011 22260-DRBDJNJ NAIL, 6 OR MORE 11/11/2011 73755-NBRCPSE NAIL, 6 OR MORE 02/10/2012 93267-BXYZNNO NAIL, 6 OR MORE 05/16/2012 38153-HIVCSXA NAIL, 6 OR MORE 08/17/2012 01190-DYGYTWB NAIL, 6 OR MORE 11/16/2012 15561-KDYBHGP NAIL, 6 OR MORE 02/13/2013 65787-RXEDWTH NAIL, 6 OR MORE 05/17/2013 59981-AQJIHBV NAIL, 6 OR MORE 11/13/2013 46065-ASQGYJK NAIL, 6 OR MORE 02/14/2014 41575-LAAAMQX NAIL, 6 OR MORE 05/21/2014 57975-HFKHCBC NAIL, 6 OR MORE 08/09/2013 11836-RJKCKTM NAIL, 6 OR MORE 08/27/2014 99075-QETVZOL NAIL, 6 OR MORE 11/21/2014 65450-SSLPMPE NAIL, 6 OR MORE 02/20/2015 77980-BWUBZAF NAIL, 6 OR MORE 05/22/2015 47542-ABFPDHI NAIL, 6 OR MORE 08/26/2015 03723-DGXQEMX NAIL, 6 OR MORE 11/25/2015 50929-UDOKPDN NAIL, 6 OR MORE 02/24/2016 86767-SECPUIE NAIL, 6 OR MORE 05/25/2016 63077-RZPRKON NAIL, 6 OR MORE 08/24/2016 98504-QCSTROW NAIL, 6 OR MORE 11/23/2016 05900-WNWDMPW NAIL, 6 OR MORE 02/22/2017 70843-MQOMAMH NAIL, 6 OR MORE 05/27/2017 41583-RXPSDJK NAIL, 6 OR MORE 08/26/2017 37706-SBIQLXF NAIL, 6 OR MORE 11/25/2017 82852-VDZIEJR NAIL, 6 OR MORE 02/28/2018 07811-KSYCTBZ NAIL, 6 OR MORE 05/30/2018 25288-WLEBTRL NAIL, 6 OR MORE 08/29/2018 26414-IKEKGBO NAIL, 6 OR MORE 11/28/2018 57214-OGIDANU NAIL, 6 OR MORE 02/27/2019 30144-JYMUTNL NAIL, 6 OR MORE 05/29/2019 03714-ZURUTZM NAIL, 6 OR MORE 09/25/2019 29327-SWCMLLF NAIL, 6 OR MORE 12/25/2019 79504-AALEWJE NAIL, 6 OR MORE 04/01/2020 33845-DHXPYSK NAIL, 6 OR MORE 07/08/2020 36059-SCHUYPX NAIL, 6 OR MORE 10/07/2020 33050-QDBMNQW NAIL, 6 OR MORE 02/03/2021 71525-MNCUMPD NAIL, 6 OR MORE 05/05/2021 93954-SIKYMVQ NAIL, 6 OR MORE 11/24/2021 22395-EMTWZPL NAIL, 6 OR MORE 03/02/2022 49336-EVFHBPT NAIL, 6 OR MORE 08/11/2021 15255-LRMBTYN NAIL, 6 OR MORE 06/04/2022 52695-XEQNDWK NAIL, 6 OR MORE 09/03/2022 06077-YQWRXKI NAIL, 6 OR MORE 12/10/2022 89076-BMJTCLB NAIL, 6 OR MORE 03/08/2023 19452-BRVYOCM NAIL, 6 OR MORE 06/07/2023 76514-RTAYWYE NAIL, 6 OR MORE 12/27/2023 85858-HQZFWIH NAIL, 6 OR MORE 04/06/2024 34915-AHODGNG NAIL, 6 OR MORE 09/07/2024 68228-RHGKQVM NAIL, 6 OR MORE 01/04/2025 24564-Pjbo Destruction, 1-14 06/07/2023 56532-Mdcr Destruction, -14 11/24/2021 78725-Ykxr Destruction, -14 03/08/2023 19591-Thti Destruction, -14 12/10/2022 89104-Sscd Destruction, -14 09/03/2022 57967-Hefc Destruction, -14 03/02/2022 72724-Hmtd Destruction, -14 06/04/2022 63194-Iphc Destruction, -14 08/11/2021 93624-Bcwb Destruction, -14 05/05/2021 27485-Delt Destruction, -14 02/03/2021 64116-Fkul Destruction, -14 07/08/2020 47369-Peib Destruction, -14 10/07/2020 89845-Ojtx Destruction, -14 04/01/2020 42410-Siip Destruction, -14 09/25/2019 81127-Nzgo Destruction, -14 08/26/2017 10610-Llcn Destruction, -14 05/29/2019 63480-Gpoc Destruction, -14 02/27/2019 58457-Lzal Destruction, -14 11/28/2018 94281-Xtvx Destruction, -14 08/29/2018 27668-Olyi Destruction, 10-3105/30/2018 00089-Vmgf Destruction, 10-3102/28/2018 06459-Zkwd Destruction, 10-3111/25/2017 13833-Jcqj Destruction, 10-3105/27/2017 47564-Ecke Destruction, 10-3111/23/2016 51286-Skyj Destruction, 10-3108/24/2016 02531-Bnhy Destruction, 10-3105/25/2016 92238-Xjar Destruction, 10-3102/24/2016 04389-Fgod Destruction, 10-3111/25/2015 32100-Rhhk Destruction, 10-3102/13/2013 14480-Qpwa Destruction, 10-3105/17/2013 71457-Mgxy Destruction, 10-3111/16/2012 51550-Lfvv Destruction, 10-3108/17/2012 28242-Jvkp Destruction, 10-3105/16/2012 52170-Cmtn Destruction, 10-3102/10/2012 49180-Bxca Destruction, 10-3111/11/2011 45259-Csrq Destruction, 10-3108/12/2011 32825-Xwquzlcf Plate 05/16/2012 20854-Ttbhtmhb Plate 05/17/2013 40739-Htyvasuf Plate 02/13/2013 74315-Mkjspsux Plate 02/20/2015 52481-Flilxaqi Plate 08/27/2014 78212-Znniyuoj Plate 05/21/2014 48939-Naoupivf Plate 02/14/2014 58510-Wzsffndc Plate 05/22/2015 79043-Kuvudsyq Plate 11/23/2016 93148-Torhlotf Plate 08/26/2017 93755-Sbbwsydl Plate 05/29/2019 82571-Qkuijkgb Plate 07/08/2020 68478-Qlttrwbm Plate 05/05/2021 71711-Bidpysnv Plate 12/27/2023 27992-Rrxcffas Plate 09/07/2024 21692-Kciavtiu Plate Each Additional 65284-Ritiiljc Plate Each Additional 88108-Xnlpjgag Plate Each Additional 01/2014 04349-Kutzzcpt Plate Each Additional 03/2015 29170- Debride <25 sq cm 08/09/2013 14707- Debride <25 sq cm 05/21/2014 49553- Debride <25 sq cm 12/25/2019 03154 I&D ABSCESS- SIMPLE,SINGLE 022 79456 I&D ABSCESS- SIMPLE,SINGLE 015 37670 I&D ABSCESS- SIMPLE,SINGLE 015 Next Appt Details Provider Name:Mari Chowdhury , 05/10/2025 11:30:00 AM, [address] [place], [address], Insurance Providers Payer Name Payer Address Payer Phone Subscriber Number Group Number Insured Name Patient Relationship to Insured Coverage Start Date Coverage End Date Medicare National [facility] Ert [employer] [address] [place] [address] [id number] Cande Marx Self - patient is the insured [employer] [address] [place] [address] [id number] Cande Marx Self - patient is the insured Medical (General) History Medical History History ICD Code transfusions hypertension chicken pox Stroke Surgical History Surgery Date(Month/Year) appendectomy 1960 breast surgery 1967 cholecystectomy 1969 basal cell removal forehead and right le g 07/2015 biopsy of neck 08/2024 Hospitalization History Reason Date(Month/Year) [place] [facility] [place] [facility] [place] [facility] [place] [facility] [place] pain couldn't walk
--- OUTSIDE RECORDS SUMMARY | 2025-03-05 09:47 | XMS_ITS | Encounter Summary ---
Author Organization [facility] Address [address] [place] [address] Care Team Providers Care Police Lieutenant Patrol Name Role Phone Jonna Nieto MD Primary Care Prov ider Reason for Visit * Reason Onset Date Comments faxed form 01/31/2025 Be Safer at Home form 01/22/25 Encounter Details Date Type Department Care Team (Late st Contact Info) Description 01/31/2025 Telephone Adult [address] [address] Jonna Nieto MD [address] [place] [address] faxed form (Be Safer at Home form [...] for your loved ones. For example, child nutrition manager or elderly care for an older [...] 01/22/25 received please sign and fax to [phone] documented in this encounter Plan of Treatment Upcoming Encounters Date Type Department Care Team (Late st Contact Info) Description 05/21/2025 11:00 AM EDT Office Visit Pulmonolgy - [place] [address] [place] [address] Rosario Uribe NP [address] [place] [address] 06/05/2025 10:45 AM EDT Appointment Radiology Department - [address] [phone] 07/24/2025 11:30 AM EDT Office Visit Adult Medicine [facility] - [address] [phone] Jonna Nieto MD [address] [place] [address] documented as of this encounter Visit Diagnoses Not on filedocumented in this encounter Additional Health Concerns Assessment Noted Time A fall risk assessment has been complete d for the patient 10/25/2024 2:40 PM EST documented as of this encounter Care Teams Police Lieutenant Patrol Relationship Specialty Start Date End Date Jonna Nieto MD [address] [place] [address] PCP - General Internal Medicine 07/13/22 documented as of this encounter
--- OUTSIDE RECORDS SUMMARY | 2025-03-05 09:47 | XMS_ITS | Continuity of Care Document ---
Author Organization [facility] Address [address] [place] [address] Phone Care Team Providers Care Sales Consultant Name Role Phone Loyd TO, Niecy Unavailable [...] E&M Established 15 Mins- CT & [place] [facility], [address] [place] [address] [address], [id number], [place] tel:[phone] [facility] Varicose veins of left lower extremity with other complication sRestless legs syndromeAthe rosclerotic heart disease of [place] coronary artery without angina pectorisCoro nary atherosclero sis due to lipid rich plaqueCerebr al infarction, unspecified 4 Loyd Pemberton. [address] [place] [address], [place], [place], [id number], [place]. tel:[phone] [facility], [address] [place] [address] Dr Yin [address], [id number], [place] tel:[phone] [facility] Encounter for follow-up examination after completed treatment for conditions other than malignant neVaricose veins of left lower extremity with pain 4 Milton BECKER RVT, NOAH Hewitt. [address] [place] [address], [facility] [place]A [place], [place], [id number], [place]. tel:[phone] Referring Provider: Kash Rose MD, RVT, NOAH, [address] [place] [address], [address]. tel:[phone] [facility], [address] [place] [address] Dr Yin [address], [id number], [place] tel:[phone] [facility] Encounter for follow-up examination after completed treatment for conditions other than malignant neVaricose veins of left lower extremity with pain 4 Milton BECKER RVT, NOAH Hewitt. [address] [place], [place] [address]jim [place]onz[place], [id number], [place]. tel:[phone] Referring Provider: Kash Rose MD, RVT, NOAH, [address] [place] [address], [address]. 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 [address] [place] [address], [facility] [place], [id number], [place]. tel:[phone] Referring Provider: Kash Rose MD, JUANA, NOAH, [address] [place] [address], [place], [address]. tel:[phone] Offic/outpt E&m Estab 5 Min Trial- Telemedicine CT & [place] [facility], [address] [place] [address] [address], [place], [id number], [place] tel:[phone] [facility] - [facility] Venous insufficienc y (chronic) (peripheral) Restless legs syndromeAthe rosclerotic heart disease of [place] coronary artery without angina pectorisCoro nary atherosclero sis due to lipid rich plaqueCerebr al infarction, unspecified 4 Hyun Ortega. [address] [place] [address], [facility] [place] [place], [id number], [place]. tel:[phone] Referring Provider: Jonna Ackerman, [address] [place] [address], [address]. tel:[phone] Office/Oupt E&M New Pt 30 Mins- CT & [place] [facility], [address] [place] [address] [address], [place], [id number], [place] tel:[phone] [facility] [place] [facility] [place] Pruritus, unspecifiedV aricose veins of left lower extremity with other complication Jerald in right lower legPain in left lower legRestless legs syndromeEsse ntial (primary) hypertension Atherosclero tic heart disease of [place] coronary artery without angina pectorisCoro nary atherosclero sis due to lipid rich plaqueCerebr al infarction, unspecified 4 Milton BECKER, JUANA, NOAH Hewitt. [address] [address], [facility] [place] [place], [id number], [place]. tel:[phone] Referring Provider: Jonna Ackerman, [address] [place] [address], [address]. tel:[phone] [facility], [address], [place], [id number], [place] tel:[phone] [facility] - [place] [facility] [place] Chronic venous hypertension (idiopathic) with other complication s of bilateral lower extremity Milton BECKER, RVT, RPVI Kash. [address], [address], [place], [place], [id number], [place]. tel:[phone] Referring Provider: Jonna Soto MD [facility], [address] [place] [address], [address]. tel:[phone] Family History Family Member Type Diagnosis Age At Onset No Information Payers Payer name Insurance type Covered green party ID Authoriza tion(s) Medicare NEYDA BARNARD [id number] BCBS NEYDA [id number] Medical Assistance NEYDA [id number] Social History Type Description Quantity Date Captured [...]
--- OUTSIDE RECORDS SUMMARY | 2025-03-05 09:47 | XMS_ITS ---
Author Organization [facility] Address [address] [place] [address] Care Team Providers Care Care Services Manager Name Role Phone Jonna Childress Primary Care Provider Unava ilable Mari Chowdhury Unavailable [phone] Mcelroy Encounters Encounter Location Date Provider Diagnosis [address] [address] 07/17/2024 Mari Chowdhury Plan Of Treatment Next Appt Details Provider Name:Mari Anna Chowdhury , 05/10/2025 11:30:00 AM, [address] [place] [address], [address], Progress Notes * Cande MARXDOB:[birth year] (84 yo F)Acc No.[id number]:07/17/2024 Progress Note Patient:?Karena MARXhleen Provider:?Mari Chowdhury DPM :1940???Age:83 Y???Sex:Female D ate:07/17/2024 Address:[address] [place] [address] Pcp:Jonna Childress Subjective: * Chief Complaints: * [...] Chowdhury DPM Date:?2023 Generated for Autumn patel/Samuel/Pelon on:?03/05/2025 09:47 AM EDT
--- OUTSIDE RECORDS SUMMARY | 2025-03-05 09:47 | XMS_ITS ---
Author [facility] Address [address] [place] [address] Care Team Providers Care Jack Spooler Tender Name Role Phone Jonna Childress Primary Care Provider Unamarcia ilable Black, Mari Unavailable [phone] Allergies Allergen (clinical drug ingredient) Drug/Non Drug [...] Ordered Date Performed Result Body Sit e 71485-ALCQWXI NAIL, 6 OR MORE 09/07/2024 N/A 86221-Hwprciuz Plate 09/07/2024 N/A Encounters Encounter Location Date Provider Diagnosis [facility] [address] [address] 09/07/2024 Mari Chowdhury Tinea unguium B35.1 ; [...] Treatment Pending Test Test Name Order Date 19074-CZOIAUV NAIL, 6 OR MORE 09/07/2024 69519-Abrkrevy Plate 09/07/2024 Next Appt Details Follow Up: 2 Weeks,prn, Reas on: Provider Name:Mari Chowdhury , 05/10/2025 11:30:00 AM, [address] [place] [address], [id number], Procedure Notes * Category Sub-Category Detail Notes [...] Motrin was recommended for pain or discomfort (08126), Pt DEFERS matricectomy Anesthesia , was accomplished [...] to continue use of a topical antifungal, (74002) Progress Notes * Cande MARXDOB:[birth year] (84 yo F)Acc No.[id number]:09/07/2024 Progress Note Patient:?Cande MARX Provider:?Mari Chowdhury DPM :1940???Age:84 Y???Sex:Female D ate:09/07/2024 Address:[address] [place], [place] [address] Pcp:Jonna Childress Subjective: * Chief Complaints: * [...] of neck 08/2024 * Hospitalization/Major Diagno stic Procedure:?[place] [place] right knee pain couldn't walk [place] [place] 12/09/23-[place]- Leak and GI Infection [...] - M79.675??? Plan: * Treatment: 2.?Tinea unguium?Procedure: 69248-AZHOGBP NAIL, 6 OR MORE * Procedures:?Debride Nail [...] to continue use of a topical antifungal, (11841).?Nail Avulsion:?Location?, Lateral nail border, T5.?Anesthesia?, was accomplished [...] Motrin was recommended for pain or discomfort (11669), Pt DEFERS matricectomy.? * Procedure Codes:?47589 DEBRI DE NAIL, 6 OR MORE, Modifiers: XS 46141 Avulsion Plate, Modifiers: T5 * Follow Up:?2 Weeks,prn * Images: * Sign off status: Completed true * Provider:?Mari Chowdhury DPM Date:?2023 Generated for Autumn patel/Samuel/Pelon on:?03/05/2025 09:47 AM EDT History and Physical Notes * [...]
[2025-03-05 10:28] LABS: MANUAL DIFF FLAG NO
[2025-03-05 10:38] LABS: Basophils Percent Auto 0.2 % (0-2); Eosinophils Absolute Auto 0.6 X10*3/uL (0.0-0.4); Eosinophils Percent Auto 4.9 % (0-4); Hematocrit 37.3 % (37.0-47.0); Hemoglobin 12.4 g/dl (12.0-16.0); Imm Gran Abs Auto 0.05 X10*3/uL (0.00-0.03); Imm Gran Pct Auto 0.4 % (0.0-0.4); Lymphocytes Absolute Auto 0.5 X10*3/uL (1.2-4.9); Lymphocytes Percent Auto 3.6 % (20-40); Mean Corpuscular HGB Conc 33.2 g/dl (31.0-35.0); Mean Corpuscular Hemoglobin 30.4 pg (27.0-33.0); Mean Corpuscular Volume 91.4 fL (80.0-98.0); Mean Platelet Volume 10.1 fL (9.4-12.3); Monocytes Absolute Auto 0.4 X10*3/uL (0.1-1.2); Monocytes Percent Auto 3.4 % (2-11); Neutrophils Percent Auto 87.5 % (45-73); Platelet Count 264 X10*3/uL (160-400); Red Blood Count 4.08 X10*6/uL (4.20-5.50); Red Cell Distribution Width 13.9 % (11.0-16.0); White Blood Count 12.5 X10*3/uL (4.8-10.8)
[2025-03-05 10:50] LABS: Alanine Aminotransferase 17 U/L (0-31); Albumin Level 3.7 g/dL (3.5-5.0); Alkaline Phosphatase 77 U/L (39-117); Anion Gap 13 (12-20); Aspartate Amino Transferase 23 U/L (5-31); Bilirubin Direct 0.3 mg/dL (0.0-0.5); Bilirubin Total 0.7 mg/dL (0.0-1.0); Blood Urea Nitrogen 26 mg/dL (9-16); Calcium 9.9 mg/dL (8.4-10.2); Carbon Dioxide 24 mmol/L (22-29); Chloride 102 mmol/L (96-108); Creatinine Clr Calc Pharmacy 32.7; Estimated Glomerular Filt Rate 42; Glucose Random 148 mg/dL (60-115); Potassium 3.9 mmol/L (3.3-5.1); Sodium 135 mmol/L (135-145); Total Protein 6.8 g/dL (6.5-8.0)
[2025-03-05 13:36] LABS: Influenza A PCR NEGATIVE (Negative); Influenza B PCR NEGATIVE (Negative); Resp Syncy Virus RNA Qual PCR NEGATIVE (Negative); SARS COV2 PCR INHOUSE NEGATIVE (Negative)
--- NOTE | 2025-03-05 13:36 | MHC.CM.ED ---
Addendum entered by Lyubov Braun 03/05/25 14:36: Physical therapy eval completed. Short term rehab is recommended. [facility] is able to offer a bed. Patient and sons agreeable. Original Note: Received case management consult from Dr Langford. Patient came to the ER due to syncope and weakness. Work up essentially negative. Physical therapy eval is ordered and pending. Met with patient, son Daljit and son Lloyd in regards to discharge planning. Patient lives with her and 2 sons. Typically sleeps in a recliner and has been able to independently get herself out of bed and would ambulate with a cane. Starting Wednesday, patient had a syncopal episode. Patient was evaluated in the ER. Work up was negative and patient was d/c'd home. Since then patient has been a max assist of 2 for transfers. Patient has been seen by vascular, neurology, cardiology and her medical provider. Patient does have a history of neuropathy but no other reasons for syncope can be found. PCP verified. Copy of HCP verified to be on file. Daljit and Lloyd feel patient is unsafe to be managed at home at this time. Anticipate STR will be needed. Patient does have [facility]. Patient would prefer not to go to [facility]. Patient and sons agreeable to referral being broadcasted in [facility]. Continue to monitor for d/c needs.
--- NOTE | 2025-03-06 04:25 | PC.NURSE ---
Pt is sleeping in a hospital bed, appears comfortable and uses the call light appropriatetly for needs/wants. Pt is arousable with verbal stimuli. VS are stable and monitored regularly. Pt is pending case management eval. Will continue to monitor for any changes.
[2025-03-06 05:39] VITALS: BP 128/63; PULSE 81; RESP 16; TEMP 37.2; O2SAT 97
[2025-03-06 05:49] LABS: Appearance Urine Clear; Color Urine Yellow; Glucose Urine UA Negative (Negative); Leukocyte Esterase Urine Trace (Negative); Nitrite Urine Negative (Negative); Specific Gravity - Urine 1.015 (1.005-1.025); UMIC TRIGGER UACC YES; Urine Blood Small (1+) (Negative); Urine Ketones Trace mg/dL (Negative); Urine Protein Trace mg/dL (Neg-Trace)
[2025-03-06 05:54] LABS: Bacteria Urine 1+ (None Seen); Hyaline Casts Urine 0-2 /LPF (0-2); WBC Urine 0-5 /HPF (0-5)
[2025-03-06 06:10] VITALS: O2SAT 98
--- NOTE | 2025-03-06 10:29 | PHA.MEDREC ---
Addendum entered by Jennie Li [facility] 03/06/25 13:46: Med rec was reviewed by [facility]. Addendum entered by Ky Molina 03/06/25 13:23: Patient son Daljit confirmed the pt is taking Gabapetin 100mg caps 2 caps at bedtime in stead of 3 and has always only taken max of 2 at bedtime. Original Note: Pharmacy Consult ? Medication Reconciliation Pharmacy has completed the medication reconciliation. Spoke with patients son (Daljit) over the phone and he was able to confirm his mothers medications. He confirmed she is taking the nitrofurantoin monohyd/m-cryst 100mg capsule and confirmed she has 3 days left of that. The son states his mom has not taken any of her high blood pressure medications since Wednesday due to her blood pressure being too low.
--- NOTE | 2025-03-06 10:30 | MHC.CM.ED ---
Patient remains in ER. MDS submitted to [facility]. Received telephone call from [facility] stating documentation showed a diagnosis of Mood disorder . Met with patient and family. All deny a diagnosis of mood disorder and any treatment for mood disorder. Continue to monitor for d/c need.
[2025-03-06 10:34] VITALS: BP 130/57; PULSE 84; RESP 19; TEMP 36.6; O2SAT 100
--- NOTE | 2025-03-06 12:15 | MHC.EDTECH ---
pt had Xl BM @ approximately 11am. pt is has been change since!
--- NOTE | 2025-03-06 12:22 | MHC.EDTECH ---
pt was jus got cleaned for the 2x after having a BM for the 2X!
--- NOTE | 2025-03-06 13:02 | MHC.EDTECH ---
pt just had a Bm. Pt is now changed and cleaned!
--- NOTE | 2025-03-06 13:19 | MHC.CM.ED ---
[facility]. Patient can leave at 4pm for [facility]. Angelica BOWEN booked. Med nec with chart. Patient, son Whitney Bocanegra RN and [place] TO aware. Continue to monitor for d/c needs.
[2025-03-06] MEDS: Multivitamin TABLET 1 TAB PO (13:29)
[2025-03-06] MEDS: Nitrofurantoin Monohyd/M-Cryst 100 MG CAPSULE PO (13:29)
[2025-03-06] MEDS: Apixaban 5 MG TABLET PO (13:29)
[2025-03-06] MEDS: Metoprolol Tartrate 25 MG TABLET PO (13:29)
[2025-03-06] MEDS: Losartan Potassium 50 MG TABLET PO (13:30)
[2025-03-06] MEDS: Potassium Chloride ER 20 MEQ TAB.ER.PRT PO (13:32)
[2025-03-06 14:31] VITALS: BP 160/78; PULSE 81; RESP 18; O2SAT 98
[2025-03-06] MEDS: amLODIPine Besylate 2.5 MG TABLET PO (14:35)
[2025-03-06 16:13] VITALS: BP 160/78; PULSE 81; RESP 18; TEMP 36.6; O2SAT 98
== END 2025-03-06 16:28 ==
PROVIDERS: Emergency Provider Emergency Medicine; PCP Internal Medicine
DX: R55 Syncope and collapse (principal); Z03.818 Encounter for observation for suspected exposure to other biological agents ruled out; I10 Essential (primary) hypertension; E78.5 Hyperlipidemia, unspecified; I69.351 Hemiplegia and hemiparesis following cerebral infarction affecting right dominant side; I48.0 Paroxysmal atrial fibrillation; Z79.01 Long term (current) use of anticoagulants; Z79.899 Other long term (current) drug therapy
CPT/HCPCS: 0241U; 36415; 80048; 80076; 81001; 85025; 93005; 97162; 99285

== ENCOUNTER → 2025-03-05 09:35 | Outpatient (BNV) | payer MEDICARE, MEDICAID, SELFPAY | PROVIDERS: Emergency Provider Emergency Medicine; PCP Internal Medicine; Visit Provider Internal Medicine Cardiovascular Disease | DX: I48.91 Unspecified atrial fibrillation (principal); I25.2 Old myocardial infarction | CPT/HCPCS: 93010 ==

== ENCOUNTER 2025-04-18 10:22 | Outpatient (AMB) | payer MEDICARE, MEDICAID, SELFPAY ==
--- OUTSIDE RECORDS SUMMARY | 2024-08-08 16:47 | XMS_ITS | Encounter Summary ---
Author Organization [facility] Address [address] [place] [address] Care Team Providers Care Horse Stud Manager Name Role Phone Jonna Nieto MD Primary Care Prov ider Encounter Details Date Type Department Care Team (Late st Contact Info) Description 08/08/2024 4:47 PM EDT Hospital Encounter TH HISTORIC ENCOUNTERS EASTERN CONVERSION ONLY Jennifer Willingham, ALEXANDRO [address] [place] [address] Social History Tobacco Use Types Packs/Day Years Used Date Smoking Tobacco: Never Smokeless Tobacco: Never Alcohol Use Standard Drinks/Week Comments Yes 0 (1 standard drink = 0.6 oz pur e alcohol) Housing Instability Answer Date Recorde d Are you worried that in the next 2 months you may not have stable housing? No 10/25/2024 Food Access & Nutrition Answer Date Rec orded Do you have access to a vari ety of food including fruits and vegetables? Yes 10/25/2024 Health Literacy Answer Date Recorded How often do you need to hav e someone help you when you read instructions, pamphlets, or other written material from your doctor or pharmacy? Never 10/25/2024 Caregiver: How often do you need to have someone help you when you read instructions, pamphlets, or other written material from your doctor or pharmacy? Not on file 10/25/2024 Financial Risk Answer Date Recorded How hard is it for you to pa y for the very basics like food, housing, medical care, and air conditioning / heating? Not very hard 10/25/2024 Transportation Answer Date Recorded Has the lack of transportati on kept you from meetings, work, or from getting things needed for daily living? No Has the lack of transportati on kept you from medical appointments or from getting medications? No 10/25/2024 Social Isolation Answer Date Recorded How often do you feel lonely or isolated from th ose around you? Never 10/25/2024 Food Risk Answer Date Recorded Within the past 12 months we worried whether our food would run out before we got money to buy more. Never true 10/25/2024 Within the past 12 months th e food we bought just didn't last and we didn't have money to get more. Never true 10/25/2024 Dependent Care Answer Date Recorded Do you need help finding or paying for care for your loved ones. For example, early childhood director or elderly care for an older adult? No 10/25/2024 Education Answer Date Recorded Do you think completing more education or training, like finishing a GED, going to college, or learning a trade, would be helpful for you? No 10/25/2024 Employment and Income Answer Date Recor ded During the last four weeks, have you been actively looking for work? No 10/25/2024 Living Situation Answer Date Recorded What is your living situation? 0 10/25/2024 Comments No Sex and Gender Information Value Date Recorded Sex Assigned at Not on file Legal Sex Female 1:21 AM EST Gender Identity Not on file Sexual Orientation Not on file documented as of this encounter Plan of Treatment Upcoming Encounters Date Type Department Care Team (Late st Contact Info) Description 05/21/2025 11:00 AM EDT Office Visit Pulmonolgy - [place] [address] [facility] [facility] [address] [place] [phone] Rosario Uribe NP [address] [facility] [address] [place] [address] 05/22/2025 8:40 AM EDT Office Visit [facility] [address] [phone] Brice Trejo NP [address] [place] [address] 06/05/2025 10:45 AM EDT Appointment Radiology Department - [address] [phone] 07/24/2025 11:30 AM EDT Office Visit Adult Medicine [facility] - [address] [phone] Jonna Nieto MD [address] [place] [address] 02/13/2026 9:20 AM EDT Appointment Radiology Department - [address] [phone] documented as of this encounter Visit Diagnoses Not on filedocumented in this encounter Care Teams Horse Stud Manager Relationship Specialty Start Date End Date Jonna Nieto MD [address] [place] [address] PCP - General Internal Medicine 07/13/22 documented as of this encounter
--- OUTSIDE RECORDS SUMMARY | 2025-04-18 10:57 | XMS_ITS | Patient Health Record ---
[facility] Organization [facility] Address [address] [place] [address] Care Team Providers Care Food Sanitarian Name Role Phone Jonna Childress Primary Care Provider Unava ilable Black, Mari Unavailable [phone] Allergies Allergen (clinical drug ingredient) Drug/Non Drug [...] 5 MG 1 tablet Orally Once a day; Duration: 30 day(s) Active Metamucil Not-Taking Hydrocortisone PRN Activ e Probiotic Active Melatonin 3 MG 1 tablet at bedtime as needed Orally Once a day; Duration: 30 day(s) Active Clotrimazole-Betamethasone 1-0.05 % 1 application Externally Twice a day; Duration: 30 days 12/10/2022 Not-Takin g Ketoconazole 2 % 1 application Externally Once a day; Duration: 14 day(s) PNR Active Physical Therapy . . . 2-3x/week; Duration: 3-4 weeks 03/08/2023 Not-Taking Cranberry 450 MG as directed Orally Active Loprox 0.77 % 1 application Externally Twice a day 05/05/2021 Not-Takin g Eliquis 5 MG 1 tablet Orally Twic e a day; Duration: 30 day(s) Active immodium Not-Taking Lotrimin AF Not-Taki ng Potassium Chloride A ctive Atenolol 100 MG Orally Not- Taking Pantoprazole Sodium 40 MG 1 tablet Orall y Once a day; Duration: 30 day(s) Active Ciclopirox 0.77 % 1 application to affected area Externally Twice a day; Duration: 30 days 03/29/2017 Not-Takin g Nystatin Active NIFEdipine 60 MG Orally Not -Taking Mometasone Furoate N ot-Taking Atorvastatin Calcium 80 MG 1 tablet Oral ly Once a day; Duration: 30 day(s) Not-Taking Fiber Not-Taking Gabapentin Active Zinc Gluconate 50 MG 1 tablet Orally Onc e a day; Duration: 30 day(s) Not-Taking Centrum Silver Not-T aking traZODone HCl 50 MG 1 tablet at bedtime as needed Orally Once a day; Duration: 30 day(s) Not-Taking Sulfamethoxazole-Trimethop rim 800-160 MG 1 tablet Orally Three times a Week; Duration: 10 day(s) Not-Taking Sulfamethoxazole-Trimethop rim 800-160 MG 1 tablet Orally Three times a Week; Duration: 10 day(s) Not-Taking Losartan Potassium 50 MG 1 tablet Orally Once a day Active Nifediac CC 60 MG Orally No t-Taking Tylenol prn Active Ciclopirox Olamine 0.77% external Apply to effected areas twice a day; Duration: 30 days 06/17/2015 Not-Terence g Metoprolol Succinate ER 50 MG 1 tablet Orally Once a day Active Multivitamin Not-Edson ing Colestipol HCl Not-T aking Ciclopirox Olamine N ot-Taking Immunizations Vaccine Route Administration Date Status Comme nts COVID-19 [email or web address] Vaccine Unknown 01/14/2021 Administered First Dose:12/24/2020 Second [...] Status W/U Status Risk Notes Problem Non-pressure chronic ulcer of other part of right foot limited to breakdown of skin (L97.511) Active confirmed Problem Acquired hammer toe of right foot (5543943577051101 ) Other hammer toe(s) (acquired), right foot (M20.41) Active confirmed Problem Neuropathy (425299515) Neuropathy (G62.9) Active confirmed Problem Unsteady gait (42200943) Unsteady gait (R26.81) Active confirmed Problem 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) Active confirmed Problem Equinus contracture of the ankle (disorder) (946799760) Equinus contracture of ankle (M24.573) Active confirmed Problem Venous insufficiency of leg (disorder) (839035321) Venous insufficiency (I87.2) Active confirmed Problem Equinus deformit y of left foot (M21.6X2) Active confirmed Problem Equinus deformit y of right foot (M21.6X1) Active confirmed Vital Signs Blood pressure diastolic 75 mm Hg 01/04/2025 Height 5 ft 3 in in 01/04/2025 Blood pressure systolic 135 mm Hg 01/04/2025 Weight 153 lbs 01/04/2025 BMI 27.1 kg/m2 01/04/2025 Procedures Procedure Date Ordered Date Performed Result Body Sit e 41720-VRXBWJM NAIL, 6 OR MORE 09/07/2024 N/A 18009-Mtnbpsru Plate 09/07/2024 N/A 31007-TSMISPF NAIL, 6 OR MORE 01/04/2025 N/A Encounters Encounter Location Date Provider Diagnosis [facility] [address] [address] 09/07/2024 Mari Black Tinea unguium B35.1 ; Ingrown nail L60.0 ; Pain in right toe(s) M79.674 and Pain in left toe(s) M79.[address] [facility] [address] 01/04/2025 Mari Black Tinea unguium B35.1 ; [...] Treatment Pending Test Test Name Order Date 09171-FQZDSKO NAIL, 6 OR MORE 08/12/2011 25986-MPJLWGZ NAIL, 6 OR MORE 11/11/2011 85492-VTESFJJ NAIL, 6 OR MORE 02/10/2012 52842-UMQJZSB NAIL, 6 OR MORE 05/16/2012 00175-WTIFFRS NAIL, 6 OR MORE 08/17/2012 99851-FJDDONF NAIL, 6 OR MORE 11/16/2012 37593-JKUYFVP NAIL, 6 OR MORE 02/13/2013 93457-JWFQUDK NAIL, 6 OR MORE 05/17/2013 47878-XYNXTKH NAIL, 6 OR MORE 11/13/2013 16607-FJKKEEP NAIL, 6 OR MORE 02/14/2014 42262-QFFBDWE NAIL, 6 OR MORE 05/21/2014 47229-XGVWNSY NAIL, 6 OR MORE 08/09/2013 76519-JOYTOKS NAIL, 6 OR MORE 08/27/2014 53979-ACVTBCM NAIL, 6 OR MORE 11/21/2014 37202-EZXETZV NAIL, 6 OR MORE 02/20/2015 04801-HMSDIIP NAIL, 6 OR MORE 05/22/2015 57709-NKCBEOL NAIL, 6 OR MORE 08/26/2015 67906-IGLOORM NAIL, 6 OR MORE 11/25/2015 47616-XHHZSTS NAIL, 6 OR MORE 02/24/2016 99755-GLFJWHE NAIL, 6 OR MORE 05/25/2016 02464-TFYIGKN NAIL, 6 OR MORE 08/24/2016 07252-XAEPIDM NAIL, 6 OR MORE 11/23/2016 84670-KQMLIYX NAIL, 6 OR MORE 02/22/2017 73226-OGEQXEE NAIL, 6 OR MORE 05/27/2017 97732-ANEUEXP NAIL, 6 OR MORE 08/26/2017 02244-WUWVFPP NAIL, 6 OR MORE 11/25/2017 20286-UVQBDOX NAIL, 6 OR MORE 02/28/2018 38659-VZOMENZ NAIL, 6 OR MORE 05/30/2018 85766-NNSUQFS NAIL, 6 OR MORE 08/29/2018 77872-FJWGMIW NAIL, 6 OR MORE 11/28/2018 04807-CKAKCGU NAIL, 6 OR MORE 02/27/2019 71168-JYADPYY NAIL, 6 OR MORE 05/29/2019 96113-WNYWYSE NAIL, 6 OR MORE 09/25/2019 51608-AKQFHCC NAIL, 6 OR MORE 12/25/2019 24842-OKLMQBU NAIL, 6 OR MORE 04/01/2020 23695-IIPSAOA NAIL, 6 OR MORE 07/08/2020 00497-NQRLQKO NAIL, 6 OR MORE 10/07/2020 41681-KCYEXFW NAIL, 6 OR MORE 02/03/2021 79144-IGAONIN NAIL, 6 OR MORE 05/05/2021 25325-EXEVAGH NAIL, 6 OR MORE 11/24/2021 46067-SIVZPNR NAIL, 6 OR MORE 03/02/2022 49172-QGSJNLP NAIL, 6 OR MORE 08/11/2021 88817-LTFYMSW NAIL, 6 OR MORE 06/04/2022 40524-VPMAUDM NAIL, 6 OR MORE 09/03/2022 97192-FBXJCPO NAIL, 6 OR MORE 12/10/2022 18022-EYFZJPF NAIL, 6 OR MORE 03/08/2023 15470-AYDOANZ NAIL, 6 OR MORE 06/07/2023 28527-NPKOJDV NAIL, 6 OR MORE 12/27/2023 58870-XSYJBKI NAIL, 6 OR MORE 04/06/2024 75649-ZTSDWRH NAIL, 6 OR MORE 09/07/2024 77509-YOIIUCN NAIL, 6 OR MORE 01/04/2025 07792-Awen Destruction, 10-3106/07/2023 89882-Lwmo Destruction, 10-3111/24/2021 36833-Nmbt Destruction, 10-3103/08/2023 48500-Ashw Destruction, 10-3112/10/2022 04619-Iqlm Destruction, 10-3109/03/2022 85454-Fcrj Destruction, 10-3103/02/2022 36485-Uqwx Destruction, 10-3106/04/2022 74327-Lmuz Destruction, 10-3108/11/2021 09399-Lhgt Destruction, 10-3105/05/2021 83369-Vjep Destruction, 10-3102/03/2021 89959-Lpmi Destruction, 10-3107/08/2020 84685-Cboq Destruction, 10-3110/07/2020 66537-Dgtd Destruction, 10-3104/01/2020 21730-Fquv Destruction, 10-3109/25/2019 91486-Fvsk Destruction, 10-3108/26/2017 37406-Ugud Destruction, 10-3105/29/2019 67843-Fftd Destruction, 10-3102/27/2019 39557-Rydz Destruction, 10-3111/28/2018 67070-Szcv Destruction, 10-3108/29/2018 30018-Nnfb Destruction, 10-3105/30/2018 85106-Jfcc Destruction, 10-3102/28/2018 63185-Hndt Destruction, 10-3111/25/2017 07622-Jfkm Destruction, 10-3105/27/2017 94661-Ehxz Destruction, 10-3111/23/2016 48929-Tfup Destruction, 10-3108/24/2016 47202-Ubfw Destruction, 10-3105/25/2016 75459-Fnik Destruction, 10-3102/24/2016 88906-Exym Destruction, -14 11/25/2015 10811-Sjar Destruction, -14 02/13/2013 71941-Dsit Destruction, -14 05/17/2013 70612-Lbdw Destruction, -14 11/16/2012 03559-Lxwr Destruction, -14 08/17/2012 55330-Payj Destruction, -14 05/16/2012 10948-Gsdx Destruction, -14 02/10/2012 71827-Ocfh Destruction, 10-3111/11/2011 53437-Ozga Destruction, -08/12/2011 29867-Ngqxmzqg Plate 05/16/2012 10731-Gsphhnhj Plate 05/17/2013 14422-Qfzafrwq Plate 02/13/2013 67417-Xrbwqqky Plate 02/20/2015 11168-Wifygevj Plate 08/27/2014 32036-Esehaluw Plate 05/21/2014 17985-Dvvjvheh Plate 02/14/2014 18863-Ilehcbzu Plate 05/22/2015 18091-Zqcutnfd Plate 11/23/2016 13932-Xgrjcgyw Plate 08/26/2017 43204-Ntpybltx Plate 05/29/2019 00230-Twtnsqzx Plate 07/08/2020 43063-Zseecmkn Plate 05/05/2021 01225-Xpqvqdig Plate 12/27/2023 51974-Padahgkn Plate 09/07/2024 21766-Plabzgms Plate Each Additional 61714-Nbucpjyz Plate Each Additional 67696-Iqifbzzu Plate Each Additional 01/2014 65576-Jvxfddzk Plate Each Additional 03/2015 00280- Debride <25 sq cm 08/09/2013 24773- Debride <25 sq cm 05/21/2014 51096- Debride <25 sq cm 12/25/2019 49894 I&D ABSCESS- SIMPLE,SINGLE 022 39880 I&D ABSCESS- SIMPLE,SINGLE 015 84322 I&D ABSCESS- SIMPLE,SINGLE 015 Next Appt Details Provider Name:Mari Chowdhury , 05/10/2025 11:30:00 AM, [address] [place] [address], [place], [address], Insurance Providers Payer Name Payer Address Payer Phone Subscriber Number Group Number Insured Name Patient Relationship to Insured Coverage Start Date Coverage End Date Medicare [employer] [facility] [employer] [address] [place] [address] [id number] Cande Marx Self - patient is the insured [employer] [address] [place] [address] [id number] Cande Marx Self - patient is the insured Medical (General) History Medical History History ICD Code transfusions hypertension chicken pox Stroke Surgical History Surgery Date(Month/Year) appendectomy 1960 breast surgery 1966 cholecystectomy 1969 basal cell removal forehead and right le g 07/2015 biopsy of neck 08/2024 Hospitalization History Reason Date(Month/Year) [place] [facility] [place] [facility] [place] In[place] [facility] [place] [facility] [place] couldn't walk
--- NOTE | 2025-04-18 10:59 | MHC.OFFVIS ---
Vital Signs 04/18/25 11:05 Height 5 ft 4.57 in Weight 165 lb 2.02 oz BMI 27.8 BP 150/70 H Blood Pressure Location Rt brachial Position Sitting Pulse 74 Pulse Source Pulse Oximeter Pulse Oximetry (%) 99 Oxygen Delivery Method Room Air Intake Visit Reasons: + KEVIN Intake Note: NEW Patient presents for a positive KEVIN. Allergies codeine Allergy (Unknown, Verified 04/18/25 11:06) rash Penicillins Adverse Reaction (Verified 04/18/25 11:06) Hives terbinafine (From Lamisil) Adverse Reaction (Verified 04/18/25 11:06) Hives HPI HPI + KEVIN: Details: Son Daljit accompanies patient during visit. 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 neuropathy bilateral feet L>R occured a month later. She denies progression. Per neurology note interval EMG/NCS results which showed sensory motor neuropathy . I could not locate EMG results in [facility]. PT improved gait. She also regained strength in her right extremities. She has home OT and PT. She is able to walk after the stroke. Uses cane to ambulate. She had workup for her neurological symptoms, which revealed KEVIN 1: 320 01/2025. +dry mouth and dry eyes. Denies fever, oral ulcers, genital ulcers, rash, dyspnea, pleurisy, joint pain, raynauds syndrome, bloot clots. 1 miscarriage at 4 months. She has 4 children. She had a hemorrhage after one of her deliveries and required multiple blood transfusions. +foot edema improved with elevation at night +photosensitivity. +hematuria episode in toilet 6 months. Treated for UTI, which resolved episode without recurrence. Pelvic exam revealed vaginal area tears in vulvo. Hx of melanoma on left shoulder removed. Hx of pulmonary nodules on CT chest 10/2024. She also had cholecystectomy. 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 [facility] Medical History (Updated 04/18/25 @ 12:37 by Nikko Mccarthy MD) Stroke Vitamin D deficiency Multifocal pneumonia Atrial fibrillation Pyuria Episode of syncope Urinary tract infection Syncope, vasovagal Right hemiparesis HLD (hyperlipidemia) Atrial fibrillation History of malignant melanoma History of basal cell carcinoma History of dysplastic nevus Degenerative joint disease (DJD) of hip Low back pain radiating to left lower extremity History of squamous cell carcinoma Venous insufficiency (chronic) (peripheral) Diarrhea Hypertension Surgical History H/O breast biopsy Hx of colonoscopy Hx of cholecystectomy Hx of appendectomy Family History Father Throat cancer Mother Kidney failure Social History Household Members: Family Housing: House Do you presently have visiting nurse or other home services: Yes Alcohol intake: current Alcohol intake frequency: 0-2 drinks per day Alcohol type: wine Comment: pt aware she needs to ask for help before getting up Patient Tobacco Use Status: Never used Tobacco Advance Directives Date on File: 11/02/23 service: No Physical Exam Vital Signs: Last Vital Signs Pulse 74 04/18/25 11:05 BP 150/70 H 04/18/25 11:05 Pulse Ox 99 04/18/25 11:05 Oxygen Delivery Method Room Air 04/18/25 11:05 BMI result Body Mass Index 27.8 Const Other: General: Comfortable CVS: RRR Respiratory: clear to auscultation bilaterally. Good respiratory effort Skin: No lesions seen MSK: She has right shoulder abduction 100 degrees with limited full internal rotation and external rotation. Left shoulder range of motion is normal. She has increased tone in movement with her right upper extremity. Limited bilateral hip external rotation. No trochanteric bursa tenderness was found. Bilateral knee flexion 80 degrees.She has tender left MTPs. Pes planus present. Bilateral hallux valgus deformity present. She has edema of right dorsal foot and right ankle. Results Reviewed Results Reviewed: Date of Service: 11/06/24 Procedure(s): CT chest wo IV con Accession Number(s): [id number] cc: Jonna Dillard MD; Nichole Rowe MD~ Report Number: [id number]: Total DLP = 266.00 mGy-cm CLINICAL HISTORY: ?pna fever sob hypoxia CT chest without contrast Comparison: CT/NV/SR - CT CHEST WO IV CON - 11/02/24 08:03 EST Findings: Motion artifact degrades the images limiting interpretation. The heart is normal size. The visualized thyroid and mediastinum are unremarkable. Trace layering pleural effusions are present with basilar areas of subsegmental atelectasis or infiltrate. Ground-glass nodule or focal infiltrate measuring 6.6 mm is in the left upper lobe. The upper abdomen is unremarkable. The bones are intact. IMPRESSION: 1. Motion limited chest CT. 2. Small layering effusions with basilar areas of subsegmental atelectasis or infiltrate. 3. 6.6 mm ground-glass nodule or infiltrate in the medial left upper lobe. Assessment & Plan Assessment & Plan (1) Positive KEVIN (antinuclear antibody): Comment: She has both high titer 1:320 and low titer positive 01:40 KEVIN, sicca symptoms and photosensitivity. 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 I will complete workup for systemic lupus erythematosus due to high titer positive KEVIN. Due to sicca symptoms, I will further workup for Sjogren syndrome. Code(s): R76.8 - Other specified abnormal immunological findings in serum Category: Medical Plan: Labs ordered Return to clinic to review results after 2 weeks next available (2) Foot pain, bilateral: Comment: Due to neuropathy. She also has pes planus and valgus valgus deformity of bilateral feet. Code(s): M79.671 - Pain in right foot; M79.672 - Pain in left foot Category: Medical Plan: Discussed importance of wearing good foot support. I recommend that she discuss obtaining insoles with her upcoming appointment with Podiatry at the end of the month. Consider custom insoles with wide shoes. I recommended obtaining 2 new pairs of shoes that she can alternate with. 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 She is on gabapentin. Code(s): G62.9 - Polyneuropathy, unspecified Category: Medical Plan: Follows with Neurology Orders: Orders Creatinine Today M32.9 - Systemic lupus erythematosus, unspecified C Reactive Protein Today M32.9 - Systemic lupus erythematosus, unspecified Erythrocyte Sedimentation Rate Today M32.9 - Systemic lupus erythematosus, unspecified Complement C3 Today M32.9 - Systemic lupus erythematosus, unspecified Complement C4 Today M32.9 - Systemic lupus erythematosus, unspecified Anti DNA DS Antibody Today M32.9 - Systemic lupus erythematosus, unspecified Sm Sm/[employer]ESS [employer]ER Antibodies Today M32.9 - Systemic lupus erythematosus, unspecified UA and rflx microscopic Today M32.9 - Systemic lupus erythematosus, unspecified Complete Blood Count Man Dif Today M32.9 - Systemic lupus erythematosus, unspecified Sjogren's Antibodies Today M32.9 - Systemic lupus erythematosus, unspecified Protein Creatinine Ratio, Ur Today M32.9 - Systemic lupus erythematosus, unspecified Coding Level of Care Code New Pt Level 4 (32654) Diagnoses Positive KEVIN (antinuclear antibody) R76.8 Foot pain, bilateral M79.671; M79.672 Sensorimotor neuropathy G62.9
[2025-04-18 11:05] VITALS: BP 150/70; PULSE 74; O2SAT 99; BMI 27.8
== END 2025-04-18 12:55 | disposition home or self-care (01) ==
LOC: HO.RHES 10:22
PROVIDERS: PCP Internal Medicine; Visit Provider Internal Medicine Rheumatology
DX: R76.8 Other specified abnormal immunological findings in serum (principal); M79.671 Pain in right foot; M79.672 Pain in left foot; G62.9 Polyneuropathy, unspecified
CPT/HCPCS: 99204

== ENCOUNTER 2025-04-18 10:22 | Outpatient (REF) | payer MEDICARE, MEDICAID, SELFPAY ==
--- OUTSIDE RECORDS SUMMARY | 2024-05-31 09:30 | XMS_ITS | Continuity of Care Document ---
Author Organization [facility] Address [address] [place] [address] Phone Care Team Providers Care Receiving Associate Name Role Phone Loyd TO, Niecy Unavailable [...] E&M Established 15 Mins- CT & [place] [facility], [address] [place] [address] [address] 1000Nanette [place], [id number], [place] tel:[phone] [facility] Varicose veins of left lower extremity with other complication sRestless legs syndromeAthe rosclerotic heart disease of [place] coronary artery without angina pectorisCoro nary atherosclero sis due to lipid rich plaqueCerebr al infarction, unspecified 4 Loyd Pemberton. [address] [place] [address], [place], [place], [id number], [place]. tel:[phone] [facility], [address] [place] [address] Dr Yin 1000Suite 1000Nanette [place], [id number], [place] tel:[phone] [facility] Encounter for follow-up examination after completed treatment for conditions other than malignant neVaricose veins of left lower extremity with pain 4 Milton BECKER RVT, NOAH Hewitt. [address] [place] [address], [facility] [place], [place], [id number], [place]. tel:[phone] Referring Provider: Kash Rose MD, RVT, NOAH, [address] [place] [address], [address]. tel:[phone] [facility], [address] [place] [address] Dr Yin 1000Suite 1000Nanette [place], [id number], [place] tel:[phone] [facility] Encounter for follow-up examination after completed treatment for conditions other than malignant neVaricose veins of left lower extremity with pain 4 Milton BECKER RVT, NOAH Hewitt. [address] [place], [place] [address]jim gonzalez [place], [id number], [place]. tel:[phone] Referring Provider: Kash Rose MD, RVT, NOAH, [address] [place] [address], [address]. tel:[phone] 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 [address] [place] [address], [facility] [place], [id number], [place]. tel:[phone] Referring Provider: Kash Rose MD, JUANA, NOAH, [address] [place] [address], [place], [address]. tel:[phone] Offic/outpt E&m Estab 5 Min Trial- Telemedicine CT & [place] [facility], [address] [place] [address] [address], [place], [id number], [place] tel:[phone] CVR - [facility] Venous insufficienc y (chronic) (peripheral) Restless legs syndromeAthe rosclerotic heart disease of [place] coronary artery without angina pectorisCoro nary atherosclero sis due to lipid rich plaqueCerebr al infarction, unspecified 4 Hyun Ortega. [address] [place] [address], [facility] [place] [place], [id number], [place]. tel:[phone] Referring Provider: Jonna Ackerman, [address] [place] [address], [address]. tel:[phone] Office/Oupt E&M New Pt 30 Mins- CT & [place] [facility], [address] [place] [address] [address], [place], [id number], [place] tel:[phone] [facility] - [place] Pruritus, unspecifiedV aricose veins of left lower extremity with other complication Jerald in right lower legPain in left lower legRestless legs syndromeEsse ntial (primary) hypertension Atherosclero tic heart disease of [place] coronary artery without angina pectorisCoro nary atherosclero sis due to lipid rich plaqueCerebr al infarction, unspecified 4 Milton BECKER, JUANA, NOAH Hewitt. [address] [address], [facility] [place], [id number], [place]. tel:[phone] Referring Provider: Jonna Ackerman, [address] [place] [address], [address]. tel:[phone] [facility], [address] [facility] [address], [place], [id number], [place] tel:[phone] CV[place] - [place] Chronic venous hypertension (idiopathic) with other complication s of bilateral lower extremity Milton BECKER, RVT, RPVI Kash. [address] [facility], [address], [place], [place], [id number], [place]. tel:[phone] Referring Provider: Jonna Soto MD [facility], [address] [place] [address], [address]. tel:[phone] Family History Family Member Type Diagnosis Age At Onset No Information Payers Payer name Insurance type Covered libertarian ID Authoriza tion(s) Medicare NEYDA BARNARD [id number] BCBS NEYDA [id number] Medical Assistance NEYDA [id number] Social History Type Description Quantity Date Captured [...]
[2025-04-18 14:52] LABS: Baso%MD 0.8 %; Eos%MD 3.0 %; Hematocrit 36.2 % (37.0-47.0); Hemoglobin 12.1 g/dl (12.0-16.0); IG%MD 0.4 %; Lymph%MD 19.1 %; Mean Corpuscular HGB Conc 33.4 g/dl (31.0-35.0); Mean Corpuscular Hemoglobin 30.0 pg (27.0-33.0); Mean Corpuscular Volume 89.6 fL (80.0-98.0); Mono%MD 6.0 %; NRBC Abs Auto 0.000 X10*3/uL (0.0-0.012); NRBC Pct Auto 0.0 /100WBC (0.0-0.2); Neut%MD 70.7 %; Platelet Count 283 X10*3/uL (160-400); Red Blood Count 4.04 X10*6/uL (4.20-5.50); White Blood Count 10.6 X10*3/uL (4.8-10.8)
[2025-04-18 14:59] LABS: Estimated Glomerular Filt Rate > 60
[2025-04-18 15:57] LABS: Band Neutrophils Percent 0 % (3-5); Basophils Abs Manual 0.1 X10*3/uL (0.0-0.2); Basophils Percent Manual 1 % (0-2); Eosinophils Absolute Manual 0.3 X10*3/uL (0.0-0.4); Eosinophils Percent Manual 3 % (0-4); Lymphocytes Absolute Manual 1.9 X10*3/uL (1.2-4.9); Lymphocytes Percent Manual 18 % (20-40); Monocytes Absolute Manual 0.4 X10*3/uL (0.1-1.2); Monocytes Percent Manual 4 % (2-11); Neutrophils Absolute Manual 7.8 X10*3/uL (2.0-8.3); Neutrophils Percent Manual 74 % (45-73)
[2025-04-18 15:59] LABS: Burr Cells 2+ (3-5) /OIF; RBC Morphology NOTED
[2025-04-19 20:13] LABS: Antibody to SS-A Antigen <1.0 NEG AI (<1.0 NEG); Antibody to SS-B Antigen <1.0 NEG AI (<1.0 NEG); SM/Ribonucleoprotein Ab <1.0 NEG AI (<1.0 NEG); Smith Protein <1.0 NEG AI (<1.0 NEG)
== END 2025-04-18 10:23 | disposition home or self-care (01) ==
LOC: HO.HKASLDS 10:22
PROVIDERS: PCP Internal Medicine; Visit Provider Internal Medicine Rheumatology
DX: R76.8 Other specified abnormal immunological findings in serum (principal); M32.9 Systemic lupus erythematosus, unspecified; G62.9 Polyneuropathy, unspecified; M79.671 Pain in right foot; M79.672 Pain in left foot
CPT/HCPCS: 36415; 82565; 85007; 85027; 85652; 86140; 86160; 86225; 86235; 99202

== ENCOUNTER 2025-04-19 10:17 | Outpatient (REF) | payer MEDICARE, MEDICAID, SELFPAY ==
--- OUTSIDE RECORDS SUMMARY | 2024-05-31 09:30 | XMS_ITS | Continuity of Care Document ---
Author Organization [facility] Address [address] [place] [address] Phone Care Team Providers Care Stranner Name Role Phone Loyd TO, Niecy Unavailable [...] E&M Established 15 Mins- CT & [place] [facility], [address] [place] [address] [address]Nan[place], [id number], [place] tel:[phone] [facility] Varicose veins of left lower extremity with other complication sRestless legs syndromeAthe rosclerotic heart disease of [place] coronary artery without angina pectorisCoro nary atherosclero sis due to lipid rich plaqueCerebr al infarction, unspecified 4 Loyd Pemberton. [address] [place] [address], [place], [place], [id number], [place]. tel:[phone] [facility], [address] [place] [address] Dr Yin 1000Suite 1000Nanette [place], [id number], [place] tel:[phone] [facility] Encounter for follow-up examination after completed treatment for conditions other than malignant neVaricose veins of left lower extremity with pain 4 Milton BECKER RVT, NOAH Hewitt. [address] [place] [address], [facility] [place], [place], [id number], [place]. tel:[phone] Referring Provider: Kash Rose MD, RVT, NOAH, [address] [place] [address], [address]. tel:[phone] [facility], [address] [place] [address] Dr Yin 1000Suite 1000Nanette [place], [id number], [place] tel:[phone] [facility] Encounter for follow-up examination after completed treatment for conditions other than malignant neVaricose veins of left lower extremity with pain 4 Milton BECKER RVT, NOAH Hewitt. [address] [place], [place] [address]jim gonzalez [place], [id number], [place]. tel:[phone] Referring Provider: Kash Rose MD, RVT, NOAH, [address] [place] [address], [address]. 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 [address] [place] [address], [facility] [place], [id number], [place]. tel:[phone] Referring Provider: Kash Rose MD, JUANA, NOAH, [address] [place] [address], [place], [address]. tel:[phone] Offic/outpt E&m Estab 5 Min Trial- Telemedicine CT & [place] [facility], [address] [place] [address] [address], [place], [id number], [place] tel:[phone] [facility] - [facility] Venous insufficienc y (chronic) (peripheral) Restless legs syndromeAthe rosclerotic heart disease of [place] coronary artery without angina pectorisCoro nary atherosclero sis due to lipid rich plaqueCerebr al infarction, unspecified 4 Hyun Ortega. [address] [place] [address], [facility] [place], [id number], [place]. tel:[phone] Referring Provider: Jonna Ackerman, [address] [place] [address], [address]. tel:[phone] Office/Oupt E&M New Pt 30 Mins- CT & [place] [facility], [address] [place] [address] [address], [place], [id number], [place] tel:[phone] [facility] [place] Pruritus, unspecifiedV aricose veins of left lower extremity with other complication Jerald in right lower legPain in left lower legRestless legs syndromeEsse ntial (primary) hypertension Atherosclero tic heart disease of [place] coronary artery without angina pectorisCoro nary atherosclero sis due to lipid rich plaqueCerebr al infarction, unspecified 4 Milton BECKER, JUANA, NOAH Hewitt. [address] [address], [facility] [place], [id number], [place]. tel:[phone] Referring Provider: Jonna Ackerman, [address] [place] [address], [address]. tel:[phone] [facility], [address] [facility] [address], [place], [id number], [place] tel:[phone] CV[place] - [place] Chronic venous hypertension (idiopathic) with other complication s of bilateral lower extremity Milton BECKER, RVT, RPVI Kash. [address] [facility], [address], [place], [place], [id number], [place]. tel:[phone] Referring Provider: Jonna Soto MD [facility], [address] [place] [address], [address]. tel:[phone] Family History Family Member Type Diagnosis Age At Onset No Information Payers Payer name Insurance type Covered alliance party ID Authoriza tion(s) Medicare NEYDA BARNADR [id number] BCBS NEYDA [id number] Medical Assistance NEYDA [id number] Social History Type Description Quantity Date Captured [...] Information Instructions Date Instruction Additional Infor benny Diet education Related to Body mass index (BMI) 24.0-24.9, adult Giving Encouragement to exercise Related to Body mass index (BMI) 24.0-24.9, adult Lifestyle education Related to B phong mass index (BMI) 24.0-24.9, adult Compression stocking usage as conservative measure Related to Varicose veins of left lower extremity with other complications Patient education booklet given Related to Varicose veins of left lower extremity with other complications Pre and post instruc tions reviewed and provided Related to Venous insufficiency (chronic) (peripheral) Compression stocking usage as conservative measure Related to Venous insufficiency (chronic) (peripheral) Diet education Related to Body mass index (BMI) 24.0-24.9, adult Giving Encouragement to exercise Related to Body mass index (BMI) 24.0-24.9, adult Lifestyle education Related to B phong mass index (BMI) 24.0-24.9, adult Patient education booklet given Related to Varicose veins of left lower extremity with other complications Pre and post instruc tions reviewed and provided Related to Varicose veins of left lower extremity with other complications Assessments Type Assessment Date No Information Patient Care Teams Name Effective Dates (start - stop) Status Members No Information
--- OUTSIDE RECORDS SUMMARY | 2024-08-08 16:47 | XMS_ITS | Encounter Summary ---
Author Organization [facility] Address [address] [place] [address] Care Team Providers Care Cps Team Lead Name Role Phone Jonna Nieto MD Primary Care Prov ider Encounter Details Date Type Department Care Team (Late st Contact Info) Description 08/08/2024 4:47 PM EDT Hospital Encounter TH HISTORIC ENCOUNTERS EASTERN CONVERSION ONLY Jennifer Willingham, ALEXANDRO [address] [place] [address] Social History Tobacco Use Types Packs/Day Years [...] for your loved ones. For example, child care counselor or elderly care for an older adult? [...] 11:00 AM EDT Office Visit Pulmonolgy - [place] [address] [place] [phone] Rosario Uribe NP [address] [facility] [address] [place] [address] 06/05/2025 10:45 AM EDT Appointment Radiology Department [address] [phone] 07/24/2025 11:30 AM EDT Office Visit Adult Medicine [address] [phone] Jonna Neito MD [address] [place] [address] 02/13/2026 9:20 AM EDT Appointment Radiology [address] [phone] documented as of this encounter Visit Diagnoses Not on filedocumented in this encounter Care Teams Cps Team Lead Relationship Specialty Start Date End Date Jonna Nieto MD [address] [place] [address] PCP - General Internal Medicine 07/13/22 documented as of this encounter
--- OUTSIDE RECORDS SUMMARY | 2025-04-19 11:00 | XMS_ITS | Patient Health Record ---
[facility] Address [address] [place] [address] Care Team Providers Care Plaster Applicator Name Role Phone Jonna Childress Primary Care Provider Unava ilable Black, Mari Unavailable [phone] Allergies Allergen (clinical drug ingredient) Drug/Non Drug [...] Route Administration Date Status Comme nts COVID-19 [employer] Vaccine Unknown 01/14/2021 Administered First Dose:12/24/2020 Second [...] Problem Acquired hammer toe of right foot (3451365261704566 ) Other hammer toe(s) (acquired), right foot (M20.41) Active confirmed Problem Neuropathy (630764592) Neuropathy (G62.9) Active confirmed Problem Unsteady gait (86466783) Unsteady gait (R26.81) Active confirmed Problem 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) Active confirmed Problem Equinus contracture of the ankle (disorder) (266241657) Equinus contracture of ankle (M24.573) Active confirmed Problem Venous insufficiency of leg (disorder) (739390503) Venous insufficiency (I87.2) Active confirmed Problem Equinus [...] Ordered Date Performed Result Body Sit e 30072-UEARIJY NAIL, 6 OR MORE 09/07/2024 N/A 98645-Laxksqoi Plate 09/07/2024 N/A 27589-TZHRGDG NAIL, 6 OR MORE 01/04/2025 N/A Encounters Encounter Location Date Provider Diagnosis [facility] [address] [address] 09/07/2024 Mari Black Tinea unguium B35.1 ; Ingrown nail L60.0 ; Pain in right toe(s) M79.674 and Pain in left toe(s) M79.[address] [facility] [address] 01/04/2025 Mari Black Tinea unguium B35.1 ; [...] Treatment Pending Test Test Name Order Date 09225-YOOORVL NAIL, 6 OR MORE 08/12/2011 60000-LHFYZDF NAIL, 6 OR MORE 11/11/2011 58153-YASRMCP NAIL, 6 OR MORE 02/10/2012 80234-NUTZPLU NAIL, 6 OR MORE 05/16/2012 28317-STNZZXD NAIL, 6 OR MORE 08/17/2012 00061-ODJSQON NAIL, 6 OR MORE 11/16/2012 25954-JXESOXT NAIL, 6 OR MORE 02/13/2013 47051-SSADFZG NAIL, 6 OR MORE 05/17/2013 88364-WSKMGVJ NAIL, 6 OR MORE 11/13/2013 81085-FFSHBDO NAIL, 6 OR MORE 02/14/2014 42104-TPNRCPW NAIL, 6 OR MORE 05/21/2014 57319-UXZYEOU NAIL, 6 OR MORE 08/09/2013 04910-DOSXJGY NAIL, 6 OR MORE 08/27/2014 33680-COFAOUT NAIL, 6 OR MORE 11/21/2014 27807-XIVPVER NAIL, 6 OR MORE 02/20/2015 60048-PKEGZPH NAIL, 6 OR MORE 05/22/2015 28763-DGBYMSG NAIL, 6 OR MORE 08/26/2015 44904-MJQTGQI NAIL, 6 OR MORE 11/25/2015 19660-AJEJCWM NAIL, 6 OR MORE 02/24/2016 57855-UCSLYFC NAIL, 6 OR MORE 05/25/2016 68483-RRSKVNY NAIL, 6 OR MORE 08/24/2016 72714-NVQSEXS NAIL, 6 OR MORE 11/23/2016 66971-ACRVAAU NAIL, 6 OR MORE 02/22/2017 18174-TGZRNZO NAIL, 6 OR MORE 05/27/2017 20203-FHMHDCV NAIL, 6 OR MORE 08/26/2017 90883-VLRQBFV NAIL, 6 OR MORE 11/25/2017 94375-YTSKIQE NAIL, 6 OR MORE 02/28/2018 28621-KTLOBOA NAIL, 6 OR MORE 05/30/2018 21032-YALMPAM NAIL, 6 OR MORE 08/29/2018 90558-SYWUWJK NAIL, 6 OR MORE 11/28/2018 01213-FIXYXQQ NAIL, 6 OR MORE 02/27/2019 95994-HEIQIGP NAIL, 6 OR MORE 05/29/2019 42876-DLGAXKN NAIL, 6 OR MORE 09/25/2019 47310-AXYMOMA NAIL, 6 OR MORE 12/25/2019 90329-DDUXTVV NAIL, 6 OR MORE 04/01/2020 33210-FDZOKFM NAIL, 6 OR MORE 07/08/2020 44152-QJMMOPS NAIL, 6 OR MORE 10/07/2020 06964-QYDKISK NAIL, 6 OR MORE 02/03/2021 99129-CIFTQME NAIL, 6 OR MORE 05/05/2021 59671-AWBAKCL NAIL, 6 OR MORE 11/24/2021 66557-QDHXHIP NAIL, 6 OR MORE 03/02/2022 41348-CWSZVAJ NAIL, 6 OR MORE 08/11/2021 19378-JOOBSZS NAIL, 6 OR MORE 06/04/2022 67277-NXINACI NAIL, 6 OR MORE 09/03/2022 30207-UMYNDQW NAIL, 6 OR MORE 12/10/2022 00568-EVKLKHZ NAIL, 6 OR MORE 03/08/2023 34959-TTNALZO NAIL, 6 OR MORE 06/07/2023 43354-JEXUMCA NAIL, 6 OR MORE 12/27/2023 66903-MISRROL NAIL, 6 OR MORE 04/06/2024 00329-MKSUZCI NAIL, 6 OR MORE 09/07/2024 90751-UGACGAL NAIL, 6 OR MORE 01/04/2025 59325-Ccvi Destruction, 10-3106/07/2023 49446-Emwl Destruction, 10-3111/24/2021 57184-Nrgk Destruction, 10-3103/08/2023 67729-Wqqi Destruction, 10-3112/10/2022 89100-Bjml Destruction, 10-3109/03/2022 21832-Xoom Destruction, 10-3103/02/2022 81692-Xxpe Destruction, 10-3106/04/2022 49691-Xlmz Destruction, 10-3108/11/2021 60123-Oqof Destruction, 10-3105/05/2021 87820-Okdp Destruction, 10-3102/03/2021 53023-Vxeu Destruction, 10-3107/08/2020 55954-Ensw Destruction, 10-3110/07/2020 91125-Vesq Destruction, 10-3104/01/2020 48283-Twae Destruction, 10-3109/25/2019 17441-Rfbm Destruction, 10-3108/26/2017 79437-Mhtk Destruction, 10-3105/29/2019 05647-Npbr Destruction, 10-3102/27/2019 46281-Zfny Destruction, 10-3111/28/2018 02970-Sadi Destruction, 10-3108/29/2018 30911-Majt Destruction, 10-3105/30/2018 37970-Dqjk Destruction, 10-3102/28/2018 33274-Emzm Destruction, 10-3111/25/2017 94606-Cxqd Destruction, 10-3105/27/2017 42767-Djok Destruction, 10-3111/23/2016 88121-Yarn Destruction, 10-3108/24/2016 50267-Fcqn Destruction, 10-3105/25/2016 14551-Niff Destruction, 10-3102/24/2016 55302-Hwlf Destruction, -14 11/25/2015 69389-Wbxy Destruction, -14 02/13/2013 98059-Llmi Destruction, -14 05/17/2013 73856-Egqj Destruction, -14 11/16/2012 30355-Waas Destruction, -14 08/17/2012 31921-Dxmk Destruction, -14 05/16/2012 06294-Jkgc Destruction, -14 02/10/2012 13716-Zvay Destruction, 10-3111/11/2011 51466-Taxo Destruction, -08/12/2011 39924-Fmagfuxo Plate 05/16/2012 44960-Cyvoofqm Plate 05/17/2013 10782-Ucvlqvto Plate 02/13/2013 11857-Pwkuyfbs Plate 02/20/2015 03594-Jzqbsnuo Plate 08/27/2014 00644-Fgiduyem Plate 05/21/2014 36923-Tpmnpeta Plate 02/14/2014 21965-Ilvgeezf Plate 05/22/2015 98355-Jwgwbvym Plate 11/23/2016 45047-Fbuvkxbw Plate 08/26/2017 38216-Nyesviii Plate 05/29/2019 28394-Pagbwnyc Plate 07/08/2020 02794-Tjnnzclr Plate 05/05/2021 90449-Eoqqyddf Plate 12/27/2023 27485-Nndeqpsr Plate 09/07/2024 61638-Hmzfrxxx Plate Each Additional 91373-Fssxgdtn Plate Each Additional 74568-Pjsabzys Plate Each Additional 01/2014 79348-Ixqvfpci Plate Each Additional 03/2015 78106- Debride <25 sq cm 08/09/2013 56896- Debride <25 sq cm 05/21/2014 85167- Debride <25 sq cm 12/25/2019 69567 I&D ABSCESS- SIMPLE,SINGLE 022 94968 I&D ABSCESS- SIMPLE,SINGLE 015 34979 I&D ABSCESS- SIMPLE,SINGLE 015 Next Appt Details Provider Name:Mari Chowdhury , 05/10/2025 11:30:00 AM, [address] [place] [address], [place], [address], Insurance Providers Payer Name Payer Address Payer Phone Subscriber Number Group Number Insured Name Patient Relationship to Insured Coverage Start Date Coverage End Date Medicare National [facility] [employer] [address] [place] [address] [id number] Cande Marx Self - patient is the insured [employer] Blue Shield [address] [place] [address] [phone] [id number] Cande Marx Self - patient is the insured Medical (General) History Medical History History ICD Code transfusions hypertension chicken pox Stroke Surgical History Surgery Date(Month/Year) appendectomy 1960 breast surgery 1966 cholecystectomy 1969 basal cell removal forehead and right le g 07/2015 biopsy of neck 08/2024 Hospitalization History Reason Date(Month/Year) [place] [facility] [place] [facility] [place] [facility] [place]/09[place]23[place]16[place] [facility] [place] pain couldn't walk
[2025-04-19 11:16] LABS: Appearance Urine Turbid; Glucose Urine UA Negative (Negative); PH 8.5 (5.0-9.0); Specific Gravity - Urine <= 1.005 (1.005-1.025); UMIC TRIGGER UA YES
[2025-04-19 11:29] LABS: Total Protein Urine Random < 7 mg/dL (<12)
== END 2025-04-19 10:18 | disposition home or self-care (01) ==
LOC: HO.LNP 10:17
PROVIDERS: Visit Provider Internal Medicine Rheumatology
DX: M32.9 Systemic lupus erythematosus, unspecified (principal)
CPT/HCPCS: 81001; 81003; 82570; 84156

== ENCOUNTER 2025-04-24 11:02 | Outpatient (REF) | payer MEDICARE, MEDICAID, SELFPAY ==
--- OUTSIDE RECORDS SUMMARY | 2024-05-31 09:30 | XMS_ITS | Continuity of Care Document ---
Author Organization [facility] Address [address] [place] [address] Phone Care Team Providers Care Skilled Laborer Name Role Phone Loyd TO, Niecy Unavailable [...] E&M Established 15 Mins- CT & [place] [facility], [address] [place] [address] [address] 1000Nanette [place], [id number], [place] tel:[phone] [facility] Varicose veins of left lower extremity with other complication sRestless legs syndromeAthe rosclerotic heart disease of [place] coronary artery without angina pectorisCoro nary atherosclero sis due to lipid rich plaqueCerebr al infarction, unspecified 4 Loyd Pemberton. [address] [place] [address], [place], [place], [id number], [place]. tel:[phone] [facility], [address] [place] [address] Dr Yin 1000Suite 1000Nanette [place], [id number], [place] tel:[phone] [facility] Encounter for follow-up examination after completed treatment for conditions other than malignant neVaricose veins of left lower extremity with pain 4 Milton BECKER RVT, NOAH Hewitt. [address] [place] [address], [facility] [place], [place], [id number], [place]. tel:[phone] Referring Provider: Kash Rose MD, RVT, NOAH, [address] [place] [address], [address]. tel:[phone] [facility], [address] [place] [address] Dr Yin 1000Suite 1000Nanette [place], [id number], [place] tel:[phone] [facility] Encounter for follow-up examination after completed treatment for conditions other than malignant neVaricose veins of left lower extremity with pain 4 Milton BECKER RVT, NOAH Hewitt. [address] [place], [place] [address]jim gonzalez [place], [id number], [place]. tel:[phone] Referring Provider: Kash Rose MD, RVT, NOAH, [address] [place] [address], [address]. 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 [address] [place] [address], [facility] [place], [id number], [place]. tel:[phone] Referring Provider: Kash Rose MD, JUANA, NOAH, [address] [place] [address], [place], [address]. tel:[phone] Offic/outpt E&m Estab 5 Min Trial- Telemedicine CT & [place] [facility], [address] [place] [address] [address], [place], [id number], [place] tel:[phone] CVR - [facility] Venous insufficienc y (chronic) (peripheral) Restless legs syndromeAthe rosclerotic heart disease of [place] coronary artery without angina pectorisCoro nary atherosclero sis due to lipid rich plaqueCerebr al infarction, unspecified 4 Hyun Ortega. [address] [place] [address], [facility] [place], [id number], [place]. tel:[phone] Referring Provider: Jonna Ackerman, [address] [place] [address], [address]. tel:[phone] Office/Oupt E&M New Pt 30 Mins- CT & [place] [facility], [address] [place] [address] [address], [place], [id number], [place] tel:[phone] CV[place] - [place] Pruritus, unspecifiedV aricose veins of left lower extremity with other complication Jerald in right lower legPain in left lower legRestless legs syndromeEsse ntial (primary) hypertension Atherosclero tic heart disease of [place] coronary artery without angina pectorisCoro nary atherosclero sis due to lipid rich plaqueCerebr al infarction, unspecified 4 Milton BECKER, JUANA, NOAH Hewitt. [address] [address], [facility] [place], [id number], [place]. tel:[phone] Referring Provider: Jonna Ackerman, [address] [place] [address], [address]. tel:[phone] [facility], [address] [facility] [address], [place], [id number], [place] tel:[phone] CV[place] - [place] Chronic venous hypertension (idiopathic) with other complication s of bilateral lower extremity Milton BECKER, RVT, RPVI Kash. [address] [facility], [address], [place], [place], [id number], [place]. tel:[phone] Referring Provider: Jonna Soto MD [facility], [address] [place] [address], [address]. tel:[phone] Family History Family Member Type Diagnosis Age At Onset No Information Payers Payer name Insurance type Covered libertarian ID Authoriza tion(s) Medicare NEYDA BARNARD [id number] BCBS NEYDA [id number] Medical Assistance NEYAD [id number] Social History Type Description Quantity Date Captured [...]
--- OUTSIDE RECORDS SUMMARY | 2024-08-08 16:47 | XMS_ITS | Encounter Summary ---
Author Organization [facility] Address [address] [place] [address] Care Team Providers Care Imager Name Role Phone Jonna Nieto MD Primary Care Prov ider Encounter Details Date Type Department Care Team (Late st Contact Info) Description 08/08/2024 4:47 PM EDT Hospital Encounter TH HISTORIC ENCOUNTERS EASTERN CONVERSION ONLY Jennifer Willingham, ALEXANDRO [address] [place] [address] Social History Tobacco Use Types Packs/Day Years [...] care for your loved ones. For example, housekeeper child care or elderly care for an older adult? [...] 11:00 AM EDT Office Visit Pulmonolgy - [place] [address] [facility] [address] [address] [place] [phone] Rosario Uribe NP [address] [facility] [address] [place] [address] 06/05/2025 10:45 AM EDT Appointment Radiology Department [address] [phone] 07/24/2025 11:30 AM EDT Office Visit Adult Medicine [address] [phone] Jonna Nieto MD [address] [place] [address] 02/13/2026 9:20 AM EDT Appointment Radiology [address] [phone] documented as of this encounter Visit Diagnoses Not on filedocumented in this encounter Care Teams Imager Relationship Specialty Start Date End Date Jonna Nieto MD [address] [place] [address] PCP - General Internal Medicine 07/13/22 documented as of this encounter
[2025-04-24 11:20] LABS: Appearance Urine Turbid; Glucose Urine UA Negative (Negative); PH 8.5 (5.0-9.0); Specific Gravity - Urine 1.010 (1.005-1.025); UMIC TRIGGER UA YES
--- OUTSIDE RECORDS SUMMARY | 2025-04-24 12:07 | XMS_ITS | Patient Health Record ---
[facility] Address [address] [place] [address] Care Team Providers Care Health Safety And Environment Manager Name Role Phone Jonna Childress Primary Care Provider Unava ilable Black, Mari Unavailable [phone] Allergies Allergen (clinical drug ingredient) Drug/Non Drug [...] Route Administration Date Status Comme nts COVID-19 happ[employer]Markets Vaccine Unknown 01/14/2021 Administered First Dose:12/24/2020 Second [...] Problem Acquired hammer toe of right foot (8525963954772198 ) Other hammer toe(s) (acquired), right foot (M20.41) Active confirmed Problem Neuropathy (851182805) Neuropathy (G62.9) Active confirmed Problem Unsteady gait (88147416) Unsteady gait (R26.81) Active confirmed Problem 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0 ; Pain in right toe(s) M79.674 and Pain in left toe(s) M79.[address] [facility] [address] 01/04/2025 Mari Black Tinea unguium B35.1 ; [...] Treatment Pending Test Test Name Order Date 33453-VIQPSIR NAIL, 6 OR MORE 08/12/2011 72448-NQDHUFL NAIL, 6 OR MORE 11/11/2011 80834-ENCZIMA NAIL, 6 OR MORE 02/10/2012 19458-WLSCZWU NAIL, 6 OR MORE 05/16/2012 42588-CRWFEON NAIL, 6 OR MORE 08/17/2012 78550-SVMSKPS NAIL, 6 OR MORE 11/16/2012 31392-JPIEXYF NAIL, 6 OR MORE 02/13/2013 32519-XAFFXOB NAIL, 6 OR MORE 05/17/2013 67472-WNZZNFC NAIL, 6 OR MORE 11/13/2013 00685-DYNLVLX NAIL, 6 OR MORE 02/14/2014 57859-VFQXFKW NAIL, 6 OR MORE 05/21/2014 50710-PGWBDLB NAIL, 6 OR MORE 08/09/2013 12496-SRGAXYA NAIL, 6 OR MORE 08/27/2014 63286-KQUDOWU NAIL, 6 OR MORE 11/21/2014 39932-GEGTRDH NAIL, 6 OR MORE 02/20/2015 54421-CWMTPSV NAIL, 6 OR MORE 05/22/2015 05359-ILKELUA NAIL, 6 OR MORE 08/26/2015 27094-YSPSNHG NAIL, 6 OR MORE 11/25/2015 07193-JRUGSPD NAIL, 6 OR MORE 02/24/2016 50867-JBSOUMR NAIL, 6 OR MORE 05/25/2016 32439-KDULTAO NAIL, 6 OR MORE 08/24/2016 70419-UKJWBCK NAIL, 6 OR MORE 11/23/2016 02233-XVJZTRZ NAIL, 6 OR MORE 02/22/2017 30364-IIJNFVU NAIL, 6 OR MORE 05/27/2017 95481-SQDKUIC NAIL, 6 OR MORE 08/26/2017 58902-IXEATGT NAIL, 6 OR MORE 11/25/2017 59449-OQWNHLK NAIL, 6 OR MORE 02/28/2018 82921-DSPURSW NAIL, 6 OR MORE 05/30/2018 30041-BEPVBOG NAIL, 6 OR MORE 08/29/2018 44794-UKYEVDF NAIL, 6 OR MORE 11/28/2018 42672-KNOXMQM NAIL, 6 OR MORE 02/27/2019 86808-KOCQEOK NAIL, 6 OR MORE 05/29/2019 26084-SPNETHZ NAIL, 6 OR MORE 09/25/2019 55829-QQLXPAN NAIL, 6 OR MORE 12/25/2019 90881-LTKKVFX NAIL, 6 OR MORE 04/01/2020 10216-UHOJXXR NAIL, 6 OR MORE 07/08/2020 21862-WNZWJWL NAIL, 6 OR MORE 10/07/2020 65794-GMSJZFP NAIL, 6 OR MORE 02/03/2021 14944-LQAJTDS NAIL, 6 OR MORE 05/05/2021 80136-KQLXDQB NAIL, 6 OR MORE 11/24/2021 80341-UPGYWXI NAIL, 6 OR MORE 03/02/2022 71827-CZWGLDV NAIL, 6 OR MORE 08/11/2021 51052-JAHJEHZ NAIL, 6 OR MORE 06/04/2022 75727-FCAXGVE NAIL, 6 OR MORE 09/03/2022 43549-QRBXRSC NAIL, 6 OR MORE 12/10/2022 68786-HNQTTQL NAIL, 6 OR MORE 03/08/2023 22694-MHQNUHA NAIL, 6 OR MORE 06/07/2023 69338-CRPFGDZ NAIL, 6 OR MORE 12/27/2023 88291-HIMBOKJ NAIL, 6 OR MORE 04/06/2024 03185-PPZANQY NAIL, 6 OR MORE 09/07/2024 03256-YQJDPHN NAIL, 6 OR MORE 01/04/2025 21658-Pdxz Destruction, 10-3106/07/2023 00023-Wtmf Destruction, 10-3111/24/2021 61986-Ljpf Destruction, 10-3103/08/2023 32541-Agfx Destruction, 10-3112/10/2022 80425-Yhga Destruction, 10-3109/03/2022 02976-Ixzq Destruction, 10-3103/02/2022 73822-Darl Destruction, 10-3106/04/2022 34640-Ovjy Destruction, 10-3108/11/2021 91642-Mqfk Destruction, 10-3105/05/2021 46579-Yuoh Destruction, 10-3102/03/2021 49781-Ztuh Destruction, 10-3107/08/2020 22838-Swwb Destruction, 10-3110/07/2020 14035-Hcdo Destruction, 10-3104/01/2020 51145-Pngg Destruction, 10-3109/25/2019 89453-Bcdi Destruction, 10-3108/26/2017 53726-Juuz Destruction, 10-3105/29/2019 41644-Vcso Destruction, 10-3102/27/2019 96844-Ihus Destruction, 10-3111/28/2018 13737-Tfis Destruction, 10-3108/29/2018 41688-Xyhv Destruction, 10-3105/30/2018 30373-Vdam Destruction, 10-3102/28/2018 93962-Hyxk Destruction, 10-3111/25/2017 32765-Mfeo Destruction, 10-3105/27/2017 05796-Pnrf Destruction, 10-3111/23/2016 62449-Hgca Destruction, 10-3108/24/2016 40474-Xxbk Destruction, 10-3105/25/2016 10561-Vqsd Destruction, 10-3102/24/2016 04315-Epec Destruction, -14 11/25/2015 22060-Jfoc Destruction, -14 02/13/2013 68867-Mrtg Destruction, -14 05/17/2013 44946-Voih Destruction, -14 11/16/2012 97912-Itlh Destruction, -14 08/17/2012 75633-Wtci Destruction, -14 05/16/2012 32305-Dqra Destruction, -14 02/10/2012 32604-Ddlm Destruction, 10-3111/11/2011 59599-Egtl Destruction, -08/12/2011 98206-Gemzjhtd Plate 05/16/2012 91570-Xkrxnxsw Plate 05/17/2013 03219-Fgwhnsyy Plate 02/13/2013 20685-Fqsmtzsf Plate 02/20/2015 73231-Qeopplyr Plate 08/27/2014 39938-Rwqrjtqn Plate 05/21/2014 12309-Yyiwiyut Plate 02/14/2014 29981-Aswpofyx Plate 05/22/2015 35704-Udsbsgin Plate 11/23/2016 85734-Ormbstib Plate 08/26/2017 39779-Jshvjgny Plate 05/29/2019 36771-Biynohtv Plate 07/08/2020 97618-Iavxbzdt Plate 05/05/2021 28064-Ipwodcqw Plate 12/27/2023 87853-Zlzowjer Plate 09/07/2024 82917-Ajwdqgjm Plate Each Additional 23115-Xhdedujo Plate Each Additional 64317-Qxkyuwxp Plate Each Additional 01/2014 94596-Sdflbyjz Plate Each Additional 03/2015 41271- Debride <25 sq cm 08/09/2013 93938- Debride <25 sq cm 05/21/2014 89497- Debride <25 sq cm 12/25/2019 20482 I&D ABSCESS- SIMPLE,SINGLE 022 01990 I&D ABSCESS- SIMPLE,SINGLE 015 89575 I&D ABSCESS- SIMPLE,SINGLE 015 Next Appt Details Provider Name:Mari Chowdhury , 05/10/2025 11:30:00 AM, [address] [place] [address], [place], [address], Insurance Providers Payer Name Payer Address Payer Phone Subscriber Number Group Number Insured Name Patient Relationship to Insured Coverage Start Date Coverage End Date Medicare National [facility] [address] [place] [address] [id number] Cande Marx Self - patient is the insured [employer] Blue Shield [address] [place] [address] [id number] Cande Marx Self - patient is the insured Medical (General) History Medical History History ICD Code transfusions hypertension chicken pox Stroke Surgical History Surgery Date(Month/Year) appendectomy 1960 breast surgery 1966 cholecystectomy 1969 basal cell removal forehead and right le g 07/2015 biopsy of neck 08/2024 Hospitalization History Reason Date(Month/Year) [place]- [place]- [place] [facility] [place] [facility] [place] Infection [place]06[place] [facility] [place]/09[place]23[place]12/16/[place] [facility] [place]- right knee pain couldn't walk
== END 2025-04-24 11:03 | disposition home or self-care (01) ==
LOC: HO.LNP 11:02
PROVIDERS: Visit Provider Internal Medicine Rheumatology
DX: M32.9 Systemic lupus erythematosus, unspecified (principal); R82.81 Pyuria
CPT/HCPCS: 81001; 87086

== ENCOUNTER 2025-06-14 16:03 | Emergency (ER) | payer MEDICARE, MEDICAID, SELFPAY ==
--- OUTSIDE RECORDS SUMMARY | 2024-05-31 09:30 | XMS_ITS | Continuity of Care Document ---
Author Organization [facility] Address [address] [place] [address] Phone Care Team Providers Care Catia Designer Name Role Phone Loyd TO, Niecy Unavailable [...] E&M Established 15 Mins- CT & [place] [facility], [address] [place] [address] [address]Nan[place], [id number], [place] tel:[phone] [facility] Varicose veins of left lower extremity with other complication sRestless legs syndromeAthe rosclerotic heart disease of [place] coronary artery without angina pectorisCoro nary atherosclero sis due to lipid rich plaqueCerebr al infarction, unspecified 4 Loyd Pemberton. [address] [place] [address], [place], [place], [id number], [place]. tel:[phone] [facility], [address] [place] [address] Dr Yin 1000Suite 1000Nanette [place], [id number], [place] tel:[phone] [facility] Encounter for follow-up examination after completed treatment for conditions other than malignant neVaricose veins of left lower extremity with pain 4 Milton BECKER RVT, NOAH Hewitt. [address] [place] [address], [facility] [place], [id number], [place]. tel:[phone] Referring Provider: Kash Rose MD, RVT, NOAH, [address] [place] [address], [address]. tel:[phone] [facility], [address] [place] [address] Dr Yin 1000Suite 1000Nan[place], [id number], [place] tel:[phone] [facility] Encounter for follow-up examination after completed treatment for conditions other than malignant neVaricose veins of left lower extremity with pain 4 Milton BECKER RVT, NOAH Hewitt. [address] [place], [place] [address]jim gonzalez [place], [id number], [place]. tel:[phone] Referring Provider: Kash Rose MD, RVT, NOAH, [address] [place] [address], [address]. 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 [address] [place] [address], [facility] [place], [id number], [place]. tel:[phone] Referring Provider: Kash Rose MD, JUANA, NOAH, [address] [place] [address], [place], [address]. tel:[phone] Offic/outpt E&m Estab 5 Min Trial- Telemedicine CT & [place] [facility], [address] [place] [address] [address], [place], [id number], [place] tel:[phone] CVR - [facility] Venous insufficienc y (chronic) (peripheral) Restless legs syndromeAthe rosclerotic heart disease of [place] coronary artery without angina pectorisCoro nary atherosclero sis due to lipid rich plaqueCerebr al infarction, unspecified 4 Hyun Ortega. [address] [place] [address], [facility] [place], [id number], [place]. tel:[phone] Referring Provider: Jonna Ackerman, [address] [place] [address], [address]. tel:[phone] Office/Oupt E&M New Pt 30 Mins- CT & [place] [facility], [address] [place] [address] [address], [place], [id number], [place] tel:[phone] [facility] Pruritus, unspecifiedV aricose veins of left lower extremity with other complication Jerald in right lower legPain in left lower legRestless legs syndromeEsse ntial (primary) hypertension Atherosclero tic heart disease of [place] coronary artery without angina pectorisCoro nary atherosclero sis due to lipid rich plaqueCerebr al infarction, unspecified 4 Milton BECKER, JUANA, NOAH Hewitt. [address] [address], [facility] [place], [id number], [place]. tel:[phone] Referring Provider: Jonna Ackerman, [address] [place] [address], [address]. tel:[phone] [facility], [address] [facility] [address], [place], [id number], [place] tel:[phone] [facility] - [place] Chronic venous hypertension (idiopathic) with other complication s of bilateral lower extremity Milton BECKER, RVT, RPVI Kash. [address] [facility], [address], [place], [place], [id number], [place]. tel:[phone] Referring Provider: Jonna Soto MD [facility], [address] [place] [address], [address]. tel:[phone] Family History Family Member Type Diagnosis Age At Onset No Information Payers Payer name Insurance type Covered libertarian ID Authoriza tion(s) Medicare NEYDA BARNARD [id number] BCBS NEYDA [id number] Medical Assistance NEYDA [id number] Social History Type Description Quantity Date Captured [...] No Information Instructions Date Instruction Additional Infor mation Compression stocking usage as conservative measure Related [...]
--- OUTSIDE RECORDS SUMMARY | 2024-08-08 16:47 | XMS_ITS | Encounter Summary ---
Author Organization [facility] Address [address] [place] [address] Care Team Providers Care Clinical Systems Educator Name Role Phone Jonna Nieto MD Primary Care Prov ider Encounter Details Date Type Department Care Team (Late st Contact Info) Description 08/08/2024 4:47 PM EDT Hospital Encounter TH HISTORIC ENCOUNTERS EASTERN CONVERSION ONLY Jennifer Willingham, ALEXANDRO [address] [place] [address] Social History Tobacco Use Types Packs/Day Years [...] care for your loved ones. For example, children's service supervisor or elderly care for an older adult? [...] Care Team (Late st Contact Info) Description 07/10/2025 1:00 PM EDT Office Visit Pulmon[address] [place] [phone] Rosario Uribe NP [address] [place] [address] 07/24/2025 11:30 AM EDT Office Visit Adult Medicine East - [address] [phone] Jonna Nieto MD [address] [place] [address] 02/13/2026 9:20 AM EDT Appointment Radiology Department - [address] [phone] documented as of this encounter Visit Diagnoses Not on filedocumented in this encounter Care Teams Clinical Systems Educator Relationship Specialty Start Date End Date Jonna Nieto MD [address] [place] [address] PCP - General Internal Medicine 07/13/22 documented as of this encounter
[2025-06-14 16:15] VITALS: BP 190/84; PULSE 77; RESP 18; TEMP 36.8; O2SAT 97; BMI 22.4
--- NOTE | 2025-06-14 16:15 | ED.GENADULT ---
HPI - General Adult General Chief complaint: Weakness Stated complaint: UTI, Vag. Bleeding, on anticoagulation meds Time Seen by Provider: 06/14/25 21:05 History of Present Illness ED Provider: Alfredo KNIGHT narrative: The patient is an 84-year-old woman who was on apixaban because of paroxysmal atrial fibrillation. She noticed that her urine was bloody yesterday evening and again today. She contacted her primary care doctor's office and was advised to come to the emergency room. She has not had any fever, sweats, chills. She has had no definite dysuria. She says she has increased frequency of urination. She denies back pain. She denies nausea or vomiting. Related Data Home Medications ?Medication ?Instructions ?Recorded ?Confirmed losartan 50 mg tablet 50 mg PO DAILY 10/01/23 03/06/25 lntyqvuvtuuu-xvebuhxd-cmzkfs tablet 1 tab PO DAILY 10/01/23 03/06/25 pantoprazole 40 mg tablet,delayed 40 mg PO DAILY@0630 10/01/23 03/06/25 release apixaban 5 mg tablet (Eliquis) 5 mg PO BID 10/10/23 03/06/25 melatonin 3 mg tablet 6 mg PO BEDTIME Sleep 10/10/23 03/06/25 metoprolol tartrate 50 mg tablet 25 mg PO BID 10/21/23 03/06/25 cranberry fruit 450 mg tablet 450 mg PO BID 12/08/23 03/06/25 (cranberry) loperamide 2 mg capsule 4 mg PO QID PRN Diarrhea 01/21/24 03/06/25 acetaminophen 500 mg tablet 1,000 mg PO TID PRN Pain 11/02/24 03/06/25 potassium chloride 20 mEq 20 meq PO DAILY 11/02/24 03/06/25 tablet,extended release vitamin D3 125 mcg (5,000 1 cap PO DAILY 11/02/24 03/06/25 unit)-vitamin K2 90 mcg capsule gabapentin 100 mg capsule 200 mg PO BEDTIME 11/07/24 03/06/25 amlodipine 2.5 mg tablet 2.5 mg PO DAILY 03/06/25 03/06/25 nitrofurantoin 1 cap PO BID 03/06/25 03/06/25 monohydrate/macrocrystals 100 mg capsule Previous Rx's ?Medication ?Instructions ?Recorded chris (Ultra-Light Rollator misc) #1 ea 08/22/21 cefuroxime axetil 250 mg tablet 250 mg PO BID 5 days #10 tabs 06/14/25 Allergies Allergy/AdvReac Type Severity Reaction Status Date / Time codeine Allergy Unknown rash Verified 06/14/25 16:18 Penicillins AdvReac Hives Verified 06/14/25 16:18 terbinafine (From Lamisil) AdvReac Hives Verified 06/14/25 16:18 Review of Systems Review of Systems: Yes all other systems are reviewed and are negative [facility] Past Medical History Medical History (Updated 06/15/25 @ 00:01 by Emanuel Molina) Stroke Vitamin D deficiency Multifocal pneumonia Atrial fibrillation Pyuria Episode of syncope Urinary tract infection Syncope, vasovagal Right hemiparesis HLD (hyperlipidemia) Atrial fibrillation History of malignant melanoma History of basal cell carcinoma History of dysplastic nevus Degenerative joint disease (DJD) of hip Low back pain radiating to left lower extremity History of squamous cell carcinoma Venous insufficiency (chronic) (peripheral) Diarrhea Hypertension Surgical History H/O breast biopsy Hx of colonoscopy Hx of cholecystectomy Hx of appendectomy Family History Family History Father Throat cancer Mother Kidney failure Social History Social History Household Members: Family Housing: House Do you presently have visiting nurse or other home services: Yes Alcohol intake: current Alcohol intake frequency: 0-2 drinks per day Alcohol type: wine Comment: pt aware she needs to ask for help before getting up Patient Tobacco Use Status: Never used Tobacco Smoked in Last 30 Days: No Advance Directives: Yes Advance Directives on File: Yes Advance Directives Date on File: 11/02/23 service: No Physical Exam ED Vital Signs: Vital Signs - 24 hr 06/14/25 16:15 06/14/25 20:39 06/14/25 21:33 Temperature 98.2 F 97.7 F 97.7 F Pulse Rate 77 77 77 Respiratory Rate 18 18 18 Blood Pressure 190/84 H 179/84 H 179/84 H Pulse Oximetry 97 98 98 Oxygen Delivery Method Room Air Room Air Room Air BMI result Body Mass Index 22.4 Const Other: The patient is a frail, elderly woman who looks chronically ill. She is awake and alert. She does not seem obviously acutely ill. HENMT Other: The face is symmetrical. ?Mucous membranes moist. Eyes Other: Pupils are round equal, conjunctivae are clear, extraocular movements intact General: appearance normal, both eyes and all related structures Neck Neck: Yes normal visual inspection, Yes full ROM and Yes no JVD Resp Effort & Inspection: normal respiratory effort Auscultation: clear to auscultation bilaterally Cardio Rate: regular rate Rhythm: regular rhythm Heart sounds: S1 normal heart sound present and S2 normal heart sound present GI Other: Abdomen is soft and nontender Back/Spine/Pelvis Other: No CVA percussion tenderness on either flank Skin Other: The skin is dry and unremarkable Neuro Other: The patient is awake and alert. Mental status seems clear. Eye movements are intact. The face is symmetrical. Speech is clear and appropriate. She moves her extremities symmetrically. She seems neurologically intact without a focal finding. Extrem Other: There is no calf swelling or tenderness. No asymmetry. No peripheral edema. Course Course Course Narrative: This is an RME: Additional HPI, ROS, PE not included below will be deferred to primary provider. RME assessment and note performed by: Jaleesa Lopez PA-C This is a 89-cvyp-syd-female, with a hx of PMH atrial fibrillation on Eliquis, hx CVA with residual right-sided weakness, HTN, HLD, mood disorder, GERD, who presents to the ER accompanied by her son with concerns of hematuria since last night. No weakness, confusion, dizziness. PCP told her to come to the ED as patient is on eliquis. Reporting pain in the RLQ. Plan: Labs, UA, further ER eval needed Medications Administered Discontinued Medications Generic Name Dose Route Start Last Admin Trade Name Freq PRN Reason Stop Dose Admin Cefuroxime Axetil 250 mg 06/14/25 21:17 06/14/25 21:28 Cefuroxime Axetil 250 Mg Tablet PO 06/14/25 21:18 250 mg ONCE ONE Administration Medical Decision Making Medical Decision Making MDM Narrative: The patient is an 84-year-old woman on apixaban who presents with 2 days of blood-tinged urine. She does not have significant associated urinary symptoms. She does not have any flank pain. She does not have any CVA percussion tenderness. She has not had any fever. No vomiting. Her urinalysis is suggestive of a UTI. The patient does not appear toxic. Her vital signs are stable[place] [address], normal hemoglobin, normal platelet count. She has no left shift on her white count. Chemistries show a BUN and mildly elevated at 19, otherwise unremarkable. Urinalysis shows findings consistent with a UTI. Since the patient looks well I think that the patient has hematuria is probably related to a relatively unsymptomatic urinary tract infection. The patient will be started on cefuroxime. I explained to the patient and to the patient's son that I thought additional testing was probably not indicated since the patient looks well and has no other significant symptoms. The patient seemed very eager to be discharged as she had had a long wait. The son also felt going home was comfortable with this plan. The patient should return if worse. Lab Data 06/14/25 18:15 06/14/25 18:15 Labs: Lab Results 06/14/25 Range/Units 18:15 WBC 11.0 H (4.8-10.8) X10*3/uL RBC 4.34 (4.20-5.50) X10*6/uL Hgb 13.6 (12.0-16.0) g/dl Hct 39.0 (37.0-47.0) % MCV 89.9 (80.0-98.0) fL MCH 31.3 (27.0-33.0) pg MCHC 34.9 (31.0-35.0) g/dl RDW 14.3 (11.0-16.0) % Plt Count 264 (160-400) X10*3/uL MPV 10.1 (9.4-12.3) fL Immature Gran % (Auto) 0.5 H (0.0-0.4) % Neut % (Auto) 71.8 (45-73) % Lymph % (Auto) 18.1 L (20-40) % Stevens % (Auto) 6.5 (2-11) % Eos % (Auto) 2.6 (0-4) % Baso % (Auto) 0.5 (0-2) % Lymph # (Auto) 2.0 (1.2-4.9) X10*3/uL Stevens # (Auto) 0.7 (0.1-1.2) X10*3/uL Eos # (Auto) 0.3 (0.0-0.4) X10*3/uL Baso # (Auto) 0.1 (0.0-0.2) X10*3/uL Abs Immat Gran (auto) 0.05 H (0.00-0.03) X10*3/uL Absolute Neuts (auto) 7.9 (2.0-8.3) x10*3/uL Absolute Nucleated RBC 0.000 (0.0-0.012) X10*3/uL Nucleated RBC % (auto) 0.0 (0.0-0.2) /100WBC Sodium 140 (135-145) mmol/L Potassium 3.8 (3.3-5.1) mmol/L Chloride 102 (96-108) mmol/L Carbon Dioxide 24 (22-29) mmol/L Anion Gap 18 (12-20) BUN 19 H (9-16) mg/dL Creatinine 0.87 (0.5-1.4) mg/dL Estim Creat Clear Calc 39.8 Estimated GFR > 60 Random Glucose 112 (60-115) mg/dL Calcium 9.7 (8.4-10.2) mg/dL Magnesium 2.3 (1.6-2.6) mg/dL Total Bilirubin 0.4 (0.0-1.0) mg/dL Direct Bilirubin 0.1 (0.0-0.5) mg/dL AST 27 (5-31) U/L ALT 25 (0-31) U/L Alkaline Phosphatase 108 (39-117) U/L Total Protein 7.9 (6.5-8.0) g/dL Albumin 4.8 (3.5-5.0) g/dL Urine Color Other A Urine Appearance Cloudy Urine pH 7.0 (5.0-9.0) Ur Specific [place] 1.010 (1.005-1.025) Urine Protein 100 (2+) H (Neg-Trace) mg/dL Urine Glucose (UA) Negative (Negative) mg/dL Urine Ketones Negative (Negative) mg/dL Urine Blood Large (3+) H (Negative) Urine Nitrite Negative (Negative) Ur Leukocyte Esterase Large (3+) H (Negative) Urine RBC >20 H (0-2) /HPF Urine WBC >50 H (0-5) /HPF Ur Squamous Epith Cells 3-5 (0-2) /HPF Urine Bacteria Trace (None Seen) Hyaline Casts 0-2 (0-2) /LPF Discharge Plan Discharge Clinical Impression: Hematuria Patient Disposition: Home, Self-Care Additional Instructions: The urine sample you submitted today suggest that you might have a urinary tract infection. Urinary tract infections can often cause bleeding and make the urine appear bloody. In case you in fact have a urinary tract infection you has been started on the antibiotic cefuroxime. Please take this medication 2 times a day. Please continue your other medications including your anticoagulant medication in the meantime. Please stay in touch with your regular doctor for additional advice as needed. Return to the emergency room if significantly worse, especially if you develop fever, vomiting, or flank pain. Prescriptions: New cefuroxime axetil 250 mg tablet 250 mg PO BID 5 Days Qty: 10 0RF No Action (DME) Ultra-Light Rollator Misc See Rx Instructions .Route Qty: 1 0RF Rx Instructions: As directed metoprolol tartrate 50 mg tablet 25 mg PO BID vitamin D3-vitamin K2 125-90 mcg Capsule 1 cap PO DAILY acetaminophen 500 mg Tablet 1,000 mg PO TID PRN (Reason: Pain) potassium chloride 20 mEq tablet extended release 20 meq PO DAILY Rx Instructions: take for 4 days than check labs gabapentin 100 mg capsule 200 mg PO BEDTIME amlodipine 2.5 mg tablet 2.5 mg PO DAILY nitrofurantoin monohyd/m-cryst 100 mg capsule 1 cap PO BID cranberry 450 mg Tablet 450 mg PO BID Rx Instructions: administer with meals pantoprazole 40 mg tablet,delayed release (DR/EC) 40 mg PO DAILY@0630 losartan 50 mg tablet 50 mg PO DAILY xlnmmmqswest-mxaarics-kagepr Tablet 1 tab PO DAILY Eliquis 5 mg tablet 5 mg PO BID melatonin 3 mg tablet 6 mg PO BEDTIME loperamide 2 mg capsule 4 mg PO QID PRN (Reason: Diarrhea) Referrals: Jonna Dillard MD [Primary Care Provider, Internal Medicine] Interventions: ED Discharge Assessment Last Done: 06/14/25 21:33 Discharge Date/Time: 06/14/25 21:36 Print Language: Mozambican
[2025-06-14 18:31] LABS: MANUAL DIFF FLAG NO
[2025-06-14 18:34] LABS: Hematocrit 39.0 % (37.0-47.0); Hemoglobin 13.6 g/dl (12.0-16.0); Imm Gran Abs Auto 0.05 X10*3/uL (0.00-0.03); Imm Gran Pct Auto 0.5 % (0.0-0.4); Lymphocytes Absolute Auto 2.0 X10*3/uL (1.2-4.9); Mean Corpuscular HGB Conc 34.9 g/dl (31.0-35.0); Mean Corpuscular Hemoglobin 31.3 pg (27.0-33.0); Mean Corpuscular Volume 89.9 fL (80.0-98.0); NRBC Abs Auto 0.000 X10*3/uL (0.0-0.012); NRBC Pct Auto 0.0 /100WBC (0.0-0.2); Platelet Count 264 X10*3/uL (160-400); Red Blood Count 4.34 X10*6/uL (4.20-5.50); White Blood Count 11.0 X10*3/uL (4.8-10.8)
[2025-06-14 18:39] LABS: Appearance Urine Cloudy; Glucose Urine UA Negative (Negative); PH 7.0 (5.0-9.0); Specific Gravity - Urine 1.010 (1.005-1.025); UMIC TRIGGER UACC YES
[2025-06-14 18:40] LABS: UACC Culture Trigger YES
[2025-06-14 18:49] LABS: Alanine Aminotransferase 25 U/L (0-31); Albumin Level 4.8 g/dL (3.5-5.0); Alkaline Phosphatase 108 U/L (39-117); Anion Gap 18 (12-20); Aspartate Amino Transferase 27 U/L (5-31); Blood Urea Nitrogen 19 mg/dL (9-16); Calcium 9.7 mg/dL (8.4-10.2); Carbon Dioxide 24 mmol/L (22-29); Chloride 102 mmol/L (96-108); Creatinine Clr Calc Pharmacy 39.8; Estimated Glomerular Filt Rate > 60; Magnesium 2.3 mg/dL (1.6-2.6); Potassium 3.8 mmol/L (3.3-5.1); Sodium 140 mmol/L (135-145); Total Protein 7.9 g/dL (6.5-8.0)
--- OUTSIDE RECORDS SUMMARY | 2025-06-14 20:38 | XMS_ITS | Patient Health Record ---
Author [facility] Address [address] [place] [address] Care Team Providers Care Stockroom Helper Name Role Phone Jonna Childress Primary Care Provider Unava ilable Black, Mari Unavailable [phone] Allergies Allergen (clinical drug ingredient) Drug/Non Drug Allergy documented on EMR Reaction Allergy Type Onset Date Status amoxicillin Amoxicillin hives Drug Allergy Act shira Lamisil rash Drug Allergy Active acetaminophen / oxycodone Percocet Unknown Drug Allergy Active Reason For Referral No Information Medications Medication SIG (Take, Route, Frequency, Duration) Notes Start Date End Date Status Clotrimazole-Betamethasone 1-0.05 % 1 application Externally Twice a day; Duration: 30 days 12/10/2022 Not-Takin g immodium Not-Taking Ciclopirox 0.77 % 1 application to affected area Externally Twice a day; Duration: 30 days 03/29/2017 Not-Takin g NIFEdipine 60 MG Orally Not -Taking Nifediac CC 60 MG Orally No t-Taking Metamucil Not-Taking Colestipol HCl Not-T aking Melatonin 3 MG 1 tablet at bedtime as needed Orally Once a day; Duration: 30 day(s) Active Ketoconazole 2 % 1 application Externally Once a day; Duration: 14 day(s) PNR Active amLODIPine Besylate 5 MG 1 tablet Orally Once a day; Duration: 30 day(s) Active Hydrocortisone PRN Activ e Cranberry 450 MG as directed Orally Active Eliquis 5 MG 1 tablet Orally Twic e a day; Duration: 30 day(s) Active Tylenol prn Active Metoprolol Succinate ER 50 MG 1 tablet Orally Once a day Active Atenolol 100 MG Orally Not- Taking Probiotic Active Losartan Potassium 50 MG 1 tablet Orally Once a day Active Nystatin Active Zinc Gluconate 50 MG 1 tablet Orally Onc e a day; Duration: 30 day(s) Not-Taking Multivitamin Not-Edson ing Potassium Chloride N ot-Taking Sulfamethoxazole-Trimethop rim 800-160 MG 1 tablet Orally Three times a Week; Duration: 10 day(s) Not-Taking Atorvastatin Calcium 80 MG 1 tablet Oral ly Once a day; Duration: 30 day(s) Not-Taking Centrum Silver Not-T aking traZODone HCl 50 MG 1 tablet at bedtime as needed Orally Once a day; Duration: 30 day(s) Not-Taking Gabapentin Active Lotrimin AF Not-Taki ng Pantoprazole Sodium 40 MG 1 tablet Orall y Once a day; Duration: 30 day(s) Active Fiber Not-Taking Mometasone Furoate N ot-Taking Immunizations Vaccine Route Administration Date Status Comme nts Influenza Unknown 05/10/2025 Refused COVID-19 Pfizer BioNTech Vaccine Unknown 01/14/2021 Administered [...] Problem Status W/U Status Risk Notes Problem Atherosclerosis of artery of both lower extremities (I70.203) Active confirmed Q7(A), Q8(2B), Q9(1B,2C) Vital Signs Blood pressure diastolic 76 mm Hg 05/10/2025 Height 5 ft 3 in in 05/10/2025 Blood pressure systolic 132 mm Hg 05/10/2025 Weight 163 lbs 05/10/2025 BMI 28.87 kg/m2 05/10/2025 Procedures Procedure Date Ordered Date Performed Result Body Sit e 18208-GCPNBCE NAIL, 6 OR MORE 09/07/2024 N/A 52668-Nyvnfyrl Plate 09/07/2024 N/A 32786-OUJLJHK NAIL, 6 OR MORE 01/04/2025 N/A 77245-OLQEBWX NAIL, 6 OR MORE 05/10/2025 N/A 16128-UZBA SKIN LESIONS, 2 TO 4 05/10/2025 N/A Encounters Encounter Location Date Provider Diagnosis [address] [address] 09/07/2024 Mari Black Tinea unguium B35.1 ; Ingrown nail L60.0 ; Pain in right toe(s) M79.674 and Pain in left toe(s) M79.[address] [address] 01/04/2025 Mari Black Tinea unguium B35.1 ; Neuropathy G62.9 ; Pain in right toe(s) M79.674 ; Pain in left toe(s) M79.675 ; Neuritis M79.2 ; 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 ; Pain in left foot M79.672 and Pain in right foot M79.[address] [address] 05/10/2025 Mari Black Tinea unguium B35.1 ; Pain in right toe(s) M79.674 ; Pain in left toe(s) M79.675 and Atherosclerosis of artery of both lower extremities I70.203 Assessments Encounter Date Diagnosis (ICD Code) Assessment Notes Treatment Notes Treatment Clinical Notes Section Notes 09/07/2024 Tinea unguium (ICD-10 - B35.1) 09/07/2024 Ingrown nail (ICD-10 - L60.0) 01/04/2025 Tinea unguium (ICD-10 - B35.1) 01/04/2025 Neuropathy (ICD-10 - G62.9) 05/10/2025 Tinea unguium (ICD-10 - B35.1) 05/10/2025 Pain in right toe(s) (ICD-10 - M79.674) 01/04/2025 Pain in right toe(s) (ICD-10 - M79.674) 09/07/2024 Pain in right toe(s) (ICD-10 - M79.674) 09/07/2024 Pain in left toe(s) (ICD-10 - M79.675) 01/04/2025 Pain in left toe(s) (ICD-10 - M79.675) 05/10/2025 Pain in left toe(s) (ICD-10 - M79.675) 05/10/2025 Atherosclerosis of artery of both lower extremities (ICD-10 - I70.203) Q7(A), Q8(2B), Q9(1B,2C) 01/04/2025 Neuritis (ICD-10 - M79.2) 01/04/2025 Neurapraxia of lower extremity (ICD-10 - S84.90XA) 01/04/2025 Pain in left foot (ICD-10 - M79.672) 01/04/2025 Pain in right foot (ICD-10 - M79.671) Plan Of Treatment Pending Test Test Name Order Date 33344-FKEGGGE NAIL, 6 OR MORE 08/12/2011 95274-DTJIUEN NAIL, 6 OR MORE 11/11/2011 59532-YQKTCFR NAIL, 6 OR MORE 02/10/2012 19341-MKUOVIJ NAIL, 6 OR MORE 05/16/2012 40082-JFLEEWO NAIL, 6 OR MORE 08/17/2012 07425-MTBUKKY NAIL, 6 OR MORE 11/16/2012 43668-XRPNPFX NAIL, 6 OR MORE 02/13/2013 74848-NQAJGKF NAIL, 6 OR MORE 05/17/2013 52936-BOTTRAZ NAIL, 6 OR MORE 11/13/2013 75639-MUFSQLG NAIL, 6 OR MORE 02/14/2014 32777-GMQNCQQ NAIL, 6 OR MORE 05/21/2014 06546-ICHEZID NAIL, 6 OR MORE 08/09/2013 53161-PMFTLTQ NAIL, 6 OR MORE 08/27/2014 47818-UUATKVM NAIL, 6 OR MORE 11/21/2014 88811-NIUUSEP NAIL, 6 OR MORE 02/20/2015 12815-PQENGJD NAIL, 6 OR MORE 05/22/2015 78621-BEMPBRU NAIL, 6 OR MORE 08/26/2015 39652-WMFPHQH NAIL, 6 OR MORE 11/25/2015 56622-HHMKWBV NAIL, 6 OR MORE 02/24/2016 46488-JBZYOLY NAIL, 6 OR MORE 05/25/2016 36714-ZYJUDZC NAIL, 6 OR MORE 08/24/2016 67529-AUBNWER NAIL, 6 OR MORE 11/23/2016 73016-LLNZYUQ NAIL, 6 OR MORE 02/22/2017 61158-JRHJUGK NAIL, 6 OR MORE 05/27/2017 99354-SLUUEMZ NAIL, 6 OR MORE 08/26/2017 78188-OKNCMUB NAIL, 6 OR MORE 11/25/2017 02058-QCEQXAI NAIL, 6 OR MORE 02/28/2018 39200-LBHYRDA NAIL, 6 OR MORE 05/30/2018 50617-BBYFGFM NAIL, 6 OR MORE 08/29/2018 79134-FOUOXUG NAIL, 6 OR MORE 11/28/2018 26732-NECOVBK NAIL, 6 OR MORE 02/27/2019 76164-GOMBQOW NAIL, 6 OR MORE 05/29/2019 47424-NEATYVF NAIL, 6 OR MORE 09/25/2019 13931-IWBVPZE NAIL, 6 OR MORE 12/25/2019 22897-VVUZXAJ NAIL, 6 OR MORE 04/01/2020 15919-ODPVVRX NAIL, 6 OR MORE 07/08/2020 84887-QFWMYOD NAIL, 6 OR MORE 10/07/2020 82382-YTOUISL NAIL, 6 OR MORE 02/03/2021 24973-RJVVXEG NAIL, 6 OR MORE 05/05/2021 52822-UIMZXQD NAIL, 6 OR MORE 11/24/2021 11324-VWGPTRA NAIL, 6 OR MORE 03/02/2022 85724-UFVXYSF NAIL, 6 OR MORE 08/11/2021 65562-XZPDNQY NAIL, 6 OR MORE 06/04/2022 77372-ISUDGLZ NAIL, 6 OR MORE 09/03/2022 31268-GDUQMIU NAIL, 6 OR MORE 12/10/2022 76000-GEDUVRJ NAIL, 6 OR MORE 03/08/2023 97144-KGFWPER NAIL, 6 OR MORE 06/07/2023 29174-MTFLPBQ NAIL, 6 OR MORE 12/27/2023 20122-ITHORJZ NAIL, 6 OR MORE 04/06/2024 92650-GGKNUVN NAIL, 6 OR MORE 09/07/2024 06787-UDMAYNT NAIL, 6 OR MORE 01/04/2025 47440-NQPPOFW NAIL, 6 OR MORE 05/10/2025 60196-Yvbh Destruction, 10-3111/24/2021 04461-Spys Destruction, 10-3106/07/2023 67201-Resz Destruction, 10-3103/08/2023 94868-Kfgx Destruction, 10-3112/10/2022 85060-Ooaq Destruction, 10-3109/03/2022 58816-Bksj Destruction, 10-3103/02/2022 17899-Fimv Destruction, 10-3106/04/2022 74070-Rvim Destruction, 10-3108/11/2021 08559-Mivt Destruction, 10-3105/05/2021 04128-Glnz Destruction, 10-3102/03/2021 33956-Scsg Destruction, 10-3107/08/2020 46695-Evom Destruction, 10-3110/07/2020 04345-Razj Destruction, 10-3104/01/2020 47163-Iuto Destruction, 10-3109/25/2019 06782-Hxds Destruction, 10-3108/26/2017 67893-Wzho Destruction, 10-3105/29/2019 20629-Bgdi Destruction, 10-3102/27/2019 92531-Dwww Destruction, 10-3111/28/2018 94494-Oafr Destruction, 10-3108/29/2018 54780-Fxcs Destruction, 10-3105/30/2018 43792-Mmzu Destruction, 10-3102/28/2018 68748-Yqnz Destruction, 10-3111/25/2017 17342-Bsfm Destruction, 10-3105/27/2017 63913-Foyx Destruction, 10-3111/23/2016 14418-Gzua Destruction, 10-3108/24/2016 87603-Zchs Destruction, 10-3105/25/2016 85789-Akso Destruction, 10-3102/24/2016 69805-Heme Destruction, 10-3111/25/2015 87946-Pddh Destruction, 10-3102/13/2013 11285-Blfn Destruction, 10-3105/17/2013 43281-Ocqj Destruction, 1-14 11/16/2012 17051-Oxaa Destruction, 1-14 08/17/2012 44944-Puge Destruction, -14 05/16/2012 67924-Nfyj Destruction, -14 02/10/2012 86952-Zmax Destruction, 1-14 11/11/2011 75231-Qedu Destruction, 1-14 08/12/2011 93097-Rysolchw Plate 05/16/2012 79765-Ocpxeiig Plate 05/17/2013 87785-Ovtolybf Plate 02/13/2013 46160-Rovxmoae Plate 02/20/2015 10082-Fknattep Plate 08/27/2014 81820-Ympaqtvp Plate 05/21/2014 11010-Jkvrvhgm Plate 02/14/2014 97471-Dsmvnnsg Plate 05/22/2015 41034-Sarquupv Plate 11/23/2016 67928-Qzvsmeja Plate 08/26/2017 72084-Qdcxdqzj Plate 05/29/2019 66988-Bujzvlct Plate 07/08/2020 55272-Xfvlysjp Plate 05/05/2021 24059-Dctthukw Plate 12/27/2023 85000-Ftjvetqm Plate 09/07/2024 57315-Szitzoxi Plate Each Additional 09758-Ivtlafqd Plate Each Additional 54902-Qfjwfdew Plate Each Additional 01/2014 09979-Zjaexeoy Plate Each Additional 03/2015 12051- Debride <25 sq cm 08/09/2013 61529- Debride <25 sq cm 05/21/2014 35755- Debride <25 sq cm 12/25/2019 42858 I&D ABSCESS- SIMPLE,SINGLE 022 42019 I&D ABSCESS- SIMPLE,SINGLE 015 03344 I&D ABSCESS- SIMPLE,SINGLE 015 67105-YGWH SKIN LESIONS, 2 TO 4 05/10/20 25 Next Appt Details Provider Name:Mari Chowdhury , 08/13/2025 03:15:00 PM, [address] [facility], [place], [address], Insurance Providers Payer Name Payer Address Payer Phone Subscriber Number Group Number Insured Name Patient Relationship to Insured Coverage Start Date Coverage End Date Medicare National [employer]t [employer] [address] [place] [address] [id number] Francisco JKarenaCande Self - patient is the insured [employer] [address] [place] [address] [id number] Cande Marx Self - patient is the insured Medical (General) History Medical History History ICD Code transfusions hypertension chicken pox Stroke Other hammer toe(s) (acquired), right fo ot M20.41 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 Equinus deformity of right foot M21.6X1 Venous insufficiency I87.2 Unsteady gait R26.81 Equinus contracture of ankle M24.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 2 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
[2025-06-14 20:39] VITALS: BP 179/84; PULSE 77; RESP 18; TEMP 36.5; O2SAT 98
--- OUTSIDE RECORDS SUMMARY | 2025-06-14 20:39 | XMS_ITS ---
[facility] Name [facility] Care Team Organization Name Specialty Phone Email Start Date End Da te [facility] 06/06/2025 [facility] Organization [facility] 08/25/2022 024
--- OUTSIDE RECORDS SUMMARY | 2025-06-14 20:40 | XMS_ITS | Encounter Summary ---
Author Organization [facility] Address [address] [place] [address] Care Team Providers Care Van Cdl Driver Name Role Phone Jonna Nieto MD Primary Care Prov ider Reason for Visit * Reason Onset Date Comments vna 05/24/2025 Encounter Details Date Type Department Care Team (Late st Contact Info) Description 05/24/2025 Telephone Adult Medicine [address] [phone] Jonna Nieto MD [address] [place] [phone] Social History Tobacco Use Types Packs/Day Years [...] as of this encounter Progress Notes * Otis Hernández LPN - 05/24/2025 2:52 PM EDT See DILMA from [facility] * Bindu Keita - 05/24/2025 2:25 PM EDT [facility]NA CALL Which [facility] office is calling? Luis Abbott Full name of caller: Casey The caller is An Occupational Therapist Is the caller at the patients home?: no Reason for call: patient has met her goals and d/c from OT services today. Does caller need an urgent call back? no Was CONTACT Telephone # obtained above?: yes Fax #: documented in this encounter Plan of Treatment Upcoming Encounters Date Type Department Care Team (Late st Contact Info) Description 07/10/2025 1:00 PM EDT [facility] [address] [facility] [address] [place] [address] Rosario Uribe, ZULEIKA [address] [place] [address] 07/24/2025 11:30 AM EDT Office Visit Adult Medicine [facility] - [address] [phone] Jonna Nieto MD [address] [place] [address] 02/13/2026 9:20 AM EDT Appointment Radiology Department - [address] [phone] documented as of this encounter Visit Diagnoses Not on filedocumented in this encounter Additional Health Concerns Assessment Noted Time A fall risk assessment has been complete d for the patient 10/25/2024 2:40 PM EST documented as of this encounter Care Teams Van Cdl Driver Relationship Specialty Start Date End Date Jonna Nieto MD [address] [place] [address] PCP - General Internal Medicine 07/13/22 documented as of this encounter
--- OUTSIDE RECORDS SUMMARY | 2025-06-14 20:40 | XMS_ITS | Encounter Summary ---
Author Organization [facility] Address [address] [place] [address] Care Team Providers Care Rn Documentation Specialist Name Role Phone Jonna Nieto MD Primary Care Prov ider Reason for Visit * Reason Onset Date Comments VNA Orders 05/17/2025 [facility] order #[id number] Date 04/06/25-06/04/25 Encounter Details Date Type Department Care Team (Late st Contact Info) Description 05/17/2025 Telephone Adult Medicine [address] [phone] Jonna Nieto MD [address] [place] [phone] Social History Tobacco Use Types Packs/Day Years [...] your loved ones. For example, early childhood education worker or elderly care for an older [...] as of this encounter Progress Notes * Bindu Lora MA - 05/24/2025 10:[address] EDT ORDER [address] EDWARDS'S DESK FOR SIGNATURE * Vane Bowie - 05/17/2025 11:47 AM EDT Plan of care for Luis Abbott sent to provider for signature. documented in this encounter Plan of Treatment Upcoming Encounters Date Type Department Care Team (Late st Contact Info) Description 07/10/2025 1:00 PM EDT Office Visit Pulmonolgy - [place] [address] [place] [address] Rosario Uribe, ZULEIKA [address] [place] [address] 07/24/2025 11:30 AM EDT Office Visit Adult Medicine [facility] - [address] [phone] Jonna Nieto MD [address] [place] [address] 02/13/2026 9:20 AM EDT Appointment Radiology Department - [address] [phone] documented as of this encounter Visit Diagnoses Not on filedocumented in this encounter Additional Health Concerns Assessment Noted Time A fall risk assessment has been complete d for the patient 10/25/2024 2:40 PM EST documented as of this encounter Care Teams Rn Documentation Specialist Relationship Specialty Start Date End Date Jonna Nieto MD [address] [place] [address] PCP - General Internal Medicine 07/13/22 documented as of this encounter
--- OUTSIDE RECORDS SUMMARY | 2025-06-14 20:41 | XMS_ITS | Encounter Summary ---
[facility] Address [address] [place] [address] Care Team Providers Care Therapy Site Coordinator Name Role Phone Jonna Nieto MD Primary Care Prov ider Reason for Visit * Reason Onset Date Comments Fitting for DME 06/13/2025 Incontinence Sup plies Encounter Details Date Type Department Care Team (Late st Contact Info) Description 06/13/2025 Telephone Adult Medicine [facility] [address] [place] [phone] Jonna Nieto MD [address] [place] [phone] Social History Tobacco Use Types Packs/Day Years [...] care for your loved ones. For example, rn maternal child or elderly care for an older adult? [...] as of this encounter Progress Notes * Enmanuel Rizo MA - 06/14/2025 4:43 PM EDT Signed orders faxed and scanned * Enmanuel Rizo MA - 06/14/2025 3:20 PM EDT To [facility] for sig * Messi Rivas - 06/13/2025 11:56 AM EDT DME REQUEST Name of Product: Pull-ons xl Disposable underpads Specific information about product [id number] # Needed see form Reason patient is asking for this supply? See form When completed: Fax to other office/MD/pharmacy at fax # [phone] Who is requested? Sonny Is this a fax request? yes Have you told the patient it will take 7-10 days for completion of this request? No documented in this encounter Plan of Treatment Upcoming Encounters Date Type Department Care Team (Late st Contact Info) Description 07/10/2025 1:00 PM EDT Office Visit Pulmonolgy - [address] [place] [address] Rosario Uribe NP [address] [place] [address] 07/24/2025 11:30 AM EDT Office Visit Adult Medicine [address] [phone] Jonna Nieto MD [address] [place] [address] 02/13/2026 9:20 AM EDT Appointment Radiology Department - [address] [phone] documented as of this encounter Visit Diagnoses Not on filedocumented in this encounter Additional Health Concerns Assessment Noted Time A fall risk assessment has been complete d for the patient 10/25/2024 2:40 PM EST documented as of this encounter Care Teams Therapy Site Coordinator Relationship Specialty Start Date End Date Jonna Nieto MD [address] [place] [id number] PCP - General Internal Medicine 07/13/22 documented as of this encounter
--- OUTSIDE RECORDS SUMMARY | 2025-06-14 20:42 | XMS_ITS | Clinical Summary ---
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 01/12/20 24 Active amLODIPine (NORVASC) 2.5 mg tablet Take 1 tablet (2.5 mg total) by mouth 1 (one) time each day. 90 tablet 1 10/04/20 24 Active nystatin (MYCOSTATIN) 100,000 unit/gram powder Apply 1 Application topically if needed for rash. 11/11/19 25 Active cholecalciferol , vitD3,/vit K2 (vitamin D3-vitamin K2) 125-90 mcg capsule Take 1 capsule by mouth 1 (one) time each day. Active losartan (COZAAR) 50 mg tablet TAKE 1 TABLET BY MOUTH EVERY DAY (NEED MED D CARD) 90 tablet 1 02/03/20 25 Active pantoprazole (PROTONIX) 40 mg EC tablet TAKE 1 TABLET BY MOUTH EVERY DAY 90 tablet 02/06/20 25 Active ferrous sulfate 325 mg (65 mg iron) EC tabletIndicatio ns:Iron deficiency anemia, unspecified iron deficiency anemia type Take 1 tablet (325 mg total) by mouth 1 (one) time each day with breakfast. 90 tablet 04/11/20 25 026 Active Eliquis 5 mg tablet TAKE 1 TABLET BY MOUTH 2 TIMES DAILY EVERY 12 HOURS 180 tablet 1 05/21/20 25 Active metoprolol tartrate (LOPRESSOR) 50 mg tablet Take 1 tablet (50 mg total) by mouth 2 (two) times a day. 90 tablet 1 05/29/20 25 Active Eliquis 5 mg tablet TAKE 1 TABLET BY MOUTH 2 TIMES DAILY EVERY 12 HOURS 180 tablet 1 10/04/20 24 025 Discontinued metoprolol tartrate (LOPRESSOR) 50 mg tablet TAKE 1/2 TABLET TWICE A DAY BY MOUTH 30 tablet 5 12/11/19 25 025 Discontinued Active Problems Problem Noted Date Diagnosed Date Overweight (BMI 25.0-29.9) 02/21/2025 Pneumonia 12/07/2024 Hemiplegia and hemiparesis f ollowing cerebral infarction affecting right dominant side (CMS/HCC V24, CMS/HCC V28) 12/07/2024 History of falling 12/07/2024 Personal history of urinary (tract) infections 0 12/07/2024 Personal history of malignant melanoma of skin 0 12/07/2024 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 A-fib ([facility] V24, [facility] V28) 11/24/2023 Overview (09/21/2024): Last Assessment & [...] Encounters Date Type Department Care Team Description 06/13/2025 Telephone Adult [address] [phone] Jonna Ojeda MD 06/05/2025 9:57 AM EDT - 06/05/2025 11:59 PM EDT Hospital Encounter Radiology Department - [address] [phone] Right thyroid nodule Discharge Disposition: Home or Self Care 05/28/2025 [place] Adult [address] [phone] Jonna Ojeda MD 05/24/2025 Telephone Adult [address] [phone] Jonna Ojeda MD 05/24/2025 [place] Adult [address] [phone] Jonna Ojeda MD 05/17/2025 Telephone Adult [address] [phone] Jonna Ojeda MD 05/12/2025 Telephone Adult Medicine [address] [phone] Jonna Ojeda MD 05/04/2025 Telephone Adult Medicine [address] [phone] Yolanda Reyes [place] 05/04/2025 Telephone Adult Medicine [address] [place] [phone] Jonna Ojeda MD 04/19/2025 Telephone Adult [address] [phone] Jonna Ojeda MD 04/12/[address] [phone] Jonna Ojeda MD 04/11/2025 10:30 AM EDT Office Visit [address] [phone] Jonna Ojeda MD Hospital discharge follow-up (Primary Dx); Syncope, unspecified syncope type; Iron deficiency anemia, unspecified iron deficiency anemia type 03/27/2025 Telephone Adult [address] [phone] Jacqueline Reyeselie [place] 03/27/2025 Telephone [facility] [address] [facility] [address] [place] [address] Alicia Loza MD from Last 3 Months Immunizations Name Administration [...] for your loved ones. For example, children's tutor or elderly care for an older adult? [...] Sexual Orientation Not on file Obstetrics History * This document contains information received from the source organization and may not represent a complete record from that organization. Para Term AB IAB SAB Ectopic Multiple Livin g Live Births 6 4 4 4 4 Date Outcome GA Total Labor Labor/2nd/3rd Weight Sex Type Anes PTL [place] A1 A5 Name Clin Term Living Term Living Term Living Term Living Last Filed Vital Signs Vital Sign Reading Time Taken Comments Blood Pressure 129/65 04/11/2025 10:24 AM EDT Pulse 61 04/11/2025 10:24 AM EDT Temperature 36.1 C (96.9 F) 04/11/2025 10:24 AM EDT Respiratory Rate 13 04/11/2025 10:24 AM EDT Oxygen Saturation 99% 02/21/2025 8:41 AM EDT Inhaled Oxygen Concentration - - Weight 74.9 kg (165 lb 3.2 oz) 04/11/2025 10:24 AM EDT Height 160 cm (5' 3 ) 04/11/2025 10:24 AM EDT Body Mass Index 29.26 04/11/2025 10:24 AM EDT Plan of Treatment Upcoming Encounters Date Type Department Care Team (Late st Contact Info) Description 07/10/2025 1:00 PM EDT Office Visit Pulmonolgy - [place] [address] [place] [phone] Rosario Uribe NP [address] [place] [address] 07/24/2025 11:30 AM EDT Office Visit Adult Medicine East - [address] [phone] Jonna Nieto MD [address] [place] [address] 02/13/2026 9:20 AM EDT Appointment Radiology Department - [address] [phone] Health Maintenance Due Date Last Done Comments Zoster Vaccines (1 of 2) 1959 RSV Immunization Adult Patients (1 - 1-dose 75+ series) 2015 Osteoporosis Screening (Bone Density Screening) 09/26/2022 COVID-19 Vaccine ( season) 2024 01/14/2021, 12/24/2020, 12/03/2020 Depression Screening 10/18/2024 07/19/2024 Influenza Vaccine (#1) 2025 Medicare Annual Wellness Visit 07/19/2025 07/19/2024 Falls [...] Procedure Name Priority Date/Time Associated Diagnosis Comments US HEAD NECK SOFT TISSUE Routine 06/05/2025 10:29 AM EDT Right thyroid nodule ..LAB TO CALL RESULTS Routine 04/18/2025 2:11 PM EDT BASIC METABOLIC PANEL Routine 02/21/2025 9:50 AM EDT Decreased GFR LIPID PANEL WITH REFLEX TO DIRECT LDL Routine 09/19/2024 11:59 AM EST Benign hypertension Hypercholesterolemi a Prediabetes HM DEPRESSION SCREENING Routine 07/19/2024 from Last 3 Months or Most Recently Relevant to Health Maintenance Results * US Head Neck Soft Tissue (06/05/2025 10:29 AM EDT) Anatomical Region Laterality Modality Head and Neck Ultrasound 06/05/2025 10:3 5 AM EDT Impressions 06/05/2025 10:54 AM EDT Stable right midpole nodule -------- FINAL REPORT -------- Dictated By: Miriam Jacob Dictated Date: 06/05/2025 10:35 ET Assigned Physician: Miriam Jacob Reviewed and Electronically Signed By: Miriam Jacob Signed Date: 06/05/2025 10:54 ET Workstation ID: [id number] Transcribed By: Self Edit Transcribed Date: 06/05/2025 10:35 ET Narrative 06/05/2025 10:54 AM EDT Exam: Thyroid ultrasound. HISTORY: thyroid nodule COMPARISON: Ultrasound thyroid from 11/21/2024 Technique: Grayscale and Doppler images of the thyroid gland were obtained. FINDINGS: The thyroid gland is normal in size. The right lobe measures 3.5 x 1.6 x 1.3 cm. The left lobe measures 2.3 x 0.7 x 0.8 cm. The thyroid isthmus is normal in size and measures 0.3 cm. The thyroid parenchyma is heterogenous Right Lobe: Midpole-isoechoic solid heterogeneous nodule measuring 1.2 x 1.5 x 0.7 cm, grossly stable from prior exam. Peripheral vascularity is present. Procedure Note Miriam Jacob MD - 06/05/2025 Exam: Thyroid ultrasound. HISTORY: thyroid nodule COMPARISON: Ultrasound thyroid from 11/21/2024 Technique: Grayscale and Doppler images of the thyroid gland wereobtained. FINDINGS: The thyroid gland is normal in size. The right lobe measures 3.5 x 1.6 x1.3 cm. The left lobe measures 2.3 x 0.7 x 0.8 cm. The thyroid isthmus isnormal in size and measures 0.3 cm. The thyroid parenchyma isheterogenous Right Lobe: Midpole-isoechoic solid heterogeneous nodule measuring 1.2 x 1.5 x 0.7 cm,grossly stable from prior exam. Peripheral vascularity is present. IMPRESSION: Stable right midpole nodule -------- FINAL REPORT -------- Dictated By: Miriam Jacob Dictated Date: 06/05/2025 10:35 ET Assigned Physician: Miriam Jacob Reviewed and Electronically Signed By: Miriam Jacob Signed Date: 06/05/2025 10:54 ET Workstation ID: [id number] Transcribed By: Self Edit Transcribed Date: 06/05/2025 10:35 ET Jonna Nieto MD IMG US PROCEDURES Final Result * Lab use only - Non-affiliated results notification (04/18/2025 2:11 PM EDT) Other Topography unknown / Unknown Historical Provider LAB BLOOD ORDERABLES Kayla l Result * Basic metabolic panel (02/21/2025 9:50 AM EDT) Sodium 138 133 - 145 mmol/L LAB CHEMISTRY METHOD 02/21/2025 1:16 PM [facility] Potassium 3.9 3.5 - 5.5 mmol/L LAB CHEMISTRY METHOD 02/21/2025 1:16 PM [facility] Chloride 106 96 - 110 mmol/L LAB CHEMISTRY METHOD 02/21/2025 1:16 PM [facility] CO2 25 21 - 32 mmol/L LAB CHEMISTRY METHOD 02/21/2025 1:16 PM [facility] Anion Gap 7 3 - 11 LAB CHEMISTRY METHOD 02/21/2025 1:16 PM [facility] Glucose 93 70 - 100 mg/dL LAB CHEMISTRY METHOD 02/21/2025 1:16 PM [facility] BUN 24 5 - 25 mg/dL LAB CHEMISTRY METHOD 02/21/2025 1:16 PM [facility] Creatinine 0.92 0.50 - 1.10 mg/dL LAB CHEMISTRY METHOD 02/21/2025 1:16 PM [facility] eGFR 62 >=60 mL/min/1. 73m2 LAB CHEMISTRY METHOD 02/21/2025 1:16 PM EDT [facility] Comment:Calculation based on the Chronic Kidney Disease Epidemiology Collaboration (CKD-EPI) equation refit without adjustment for race. BUN/Creatinine Ratio 26.1 LAB CHEMISTRY METHOD 02/21/2025 1:16 PM EDT [facility] Calcium 9.6 8.5 - 10.5 mg/dL LAB CHEMISTRY METHOD 02/21/2025 1:16 PM EDT [facility] Blood Venous blood specimen / Unknown Venipuncture / Unknown 02/21/2025 9:50 AM EDT 02/21/2025 9:50 AM EDT us Katina MC LAB BLOOD ORDERABLES Final Resul t [facility] [address] [place] [address], * (ABNORMAL) Lipid panel with reflex to direct LDL (09/19/2024 11:59 AM EST) Cholesterol 228(H) 0 - 200 mg/dL LAB CHEMISTRY METHOD 09/19/2024 2:37 PM [facility] Triglycerides 200(H) 0 - 150 mg/dL LAB CHEMISTRY METHOD 09/19/2024 2:37 PM EST [facility] HDL 50 >=40 mg/dL LAB CHEMISTRY METHOD 09/19/2024 2:37 PM EST [facility] LDL Calculated 138(H) 0 - 100 mg/dL LAB CHEMISTRY METHOD 09/19/2024 2:37 PM EST [facility] VLDL Cholesterol Edmundo 40 mg/dL LAB CHEMISTRY METHOD 09/19/2024 2:37 PM [facility] Non HDL Chol. (LDL+VLDL) 178(H) <145 mg/dL LAB CHEMISTRY METHOD 09/19/2024 2:37 PM EST [facility] Chol/HDL Ratio 4.6(H) 0.0 - 4.4 LAB CHEMISTRY METHOD 09/19/2024 2:37 PM EST [facility] Blood Venous blood specimen / Unknown Venipuncture / Unknown 09/19/2024 11:59 AM EST 09/19/2024 11:59 AM EST us Jennifer MC LAB BLOOD ORDERABLES Final Resu lt [facility] [address] [place] [address], [place] [phone] * Depression Screening (07/19/2024) Pathologist [facility] Depression Screening Abstracted Historical Provider MD HEALTH MAINTENANCE Final Result from Last 3 Months or Most Recently Relevant to Health Maintenance Insurance MEDICARE [facility] [place]ICAID [place] Care Teams Assembler Truck Trailer Relationship Specialty Start Date End Date Jonna Nieto MD [address] [place] [id number] PCP - General Internal Medicine 07/13/22
--- OUTSIDE RECORDS SUMMARY | 2025-06-14 20:42 | XMS_ITS | Clinical Summary ---
Author Organization [facility] Address [address] [place] [address] Phone Care Team Providers [employer] Member Name Role Phone Jonna Dillard MD Primary Care Prov ider Medications metoprolol tartrate (LOPRESSOR) 25 MG tablet Take 25 mg by mouth 2 (two) times a day. 04/06/2025 Active apixaban (ELIQUIS) 5 mg tablet Take 5 mg by mouth 2 (two) times a day. 04/06/2025 Active cranberry fruit (CRANBERRY) 450 mg tablet Take 450 mg by mouth 2 (two) times a day. 04/06/2025 Active melatonin 3 mg Tab Take 3 mg by mouth nightly at bedtime. Take 6 mg nightly 04/06/2025 Active losartan (COZAAR) 50 MG tablet Take 50 mg by mouth daily. 04/06/2025 Active pantoprazole (PROTONIX) 40 MG tablet Take 40 mg by mouth daily. 04/06/2025 Active ascorbic acid, vitamin C, (VITAMIN C) 500 MG tablet Take 500 mg by mouth daily. 04/06/2025 Active loperamide (IMODIUM) 2 mg capsule Take 2 mg by mouth as needed for diarrhea. 04/06/2025 Active gabapentin (NEURONTIN) 100 MG capsule Take 100 mg by mouth nightly at bedtime. 04/06/2025 Active amLODIPine (NORVASC) 2.5 MG tablet Take 2.5 mg by mouth daily. 04/06/2025 Active cholecalciferol (VITAMIN D3) 25 MCG (1,000 unit) tablet Take 1,000 Units by mouth daily. 04/06/2025 Active Encounters Date Type Department Care Team Description 05/24/2025 1:30 PM EDT Home [facility] Visit [facility] [address] [place], [place] [phone] Casey Tilley, OT OT OASIS DISCHARGE VISIT 05/23/2025 12:00 PM EDT Home Care Visit [facility] [address] [place] [address] Julieta Chester, TAMIKA SN DISCIPLINE DISCHARGE VISIT 05/23/2025 11:30 AM EDT Home [facility] Visit [facility] [address] [place] [address] Tita Renteria, PT PT DISCIPLINE DISCHARGE VISIT 05/22/2025 1:00 PM EDT Home Care Visit [facility] [address] [place] [address] Tita Renteria, PT PT HOME VISIT 05/22/2025 10:00 AM EDT Home Care Visit [facility] [address] [place] [address] Casey Tilley, OT OT HOME VISIT 05/17/2025 10:00 AM EDT Home [facility] Visit [facility] [address] [place] [address] Casey Tilley, OT OT HOME VISIT 05/16/2025 2:15 PM EDT Home Care Visit [facility] [address] [place] [address] Nora Jung, TOLL MECHANIC TOLL MECHANIC HOME VISIT 05/16/2025 10:30 AM EDT Home Care Visit [facility] [address] [place], [place] [phone] Julieta Chester, TAMIKA SN HOME VISIT 05/15/2025 10:00 AM EDT Home Care Visit [facility] [address] [place], [place] [phone] Casey Tilley, OT OT HOME VISIT 05/14/2025 11:15 AM EDT Home Care Visit [facility] [address] [place], [place] [phone] Tita Renteria, PT PT HOME VISIT 05/10/2025 2:00 PM EDT Home Care Visit [facility] [address] [place] [address] Tita Renteria, PT PT HOME VISIT 05/10/2025 1:30 PM EDT Home Care Visit [facility] [address] [place] [address] Casey Tilley, OT OT HOME VISIT 05/09/2025 9:30 AM EDT Home Care Visit [facility] [address] [place] [address] Tequila Clemons LPN HYPOID GEAR GENERATOR HOME VISIT 05/08/2025 1:30 PM EDT Home Care Visit [facility] [address] [place] [address] Casey Tilley, OT OT HOME VISIT 05/08/2025 10:00 AM EDT Home Care Visit [facility] [address] [place] [address] Tita Renteria, PT PT HOME VISIT 05/04/2025 1:30 PM EDT Home Care Visit [facility] [address] [place] [address] Casey Tilley, OT OT TFA VISIT 05/02/2025 12:45 PM EDT Home Care Visit [facility] [address] [place] [address] Tita Renteria, PT PT HOME VISIT 05/02/2025 9:30 AM EDT Home [facility] Visit [facility] [address] [place] [address] Tequila Clemons LPN HYPOID GEAR GENERATOR HOME VISIT 05/01/2025 1:15 PM EDT Home Care Visit [facility] [address] [place] [address] Tita Renteria, PT PT HOME VISIT 04/28/2025 9:15 AM EDT Home [facility] Visit [facility] [address] [place] [phone] Janice Dennis, PT PT EVALUATION 04/26/2025 1:30 PM EDT Home Care Visit [facility] [address] [place] [address] Casey Tilley, OT OT HOME VISIT 04/25/2025 12:30 PM EDT Home Care Visit [facility] [address] [place] [phone] Tequila Clemons LPN HYPOID GEAR GENERATOR HOME VISIT 04/24/2025 1:30 PM EDT Home [facility] Visit [facility] [address] [place] [address] Casey Tilley, OT OT HOME VISIT 04/19/2025 1:00 PM EDT Home Care Visit [facility] [address] [place] [phone] Julieta Chester RN SN HOME VISIT 04/17/2025 12:30 PM EDT Home Care Visit [facility] [address] [place] [phone] Casey Tilley, OT OT HOME VISIT 04/13/2025 1:30 PM EDT Home Care Visit [facility] [address] [place] [phone] Casey Tilley, OT OT HOME VISIT 04/13/2025 11:00 AM EDT Home Care Visit [facility] [address] [place] [address] Julieta Chester RN SN HOME VISIT 04/12/2025 12:00 PM EDT Home Care Visit [facility] [address] [place] [phone] Casey Tilley, OT OT EVALUATION 04/10/2025 Home Care Visit [facility] [address] [place] [phone] Carissa Nur, PT TELEPHONE ENCOUNTER 04/08/2025 Plan of Care Documentation [facility] [address] [place] [phone] 04/06/2025 10:30 AM EDT Home Care Visit [facility] [address] [place] [phone] Julieta Chester, TAMIKA SN OASIS START OF CARE (SOC) 04/03/2025 8:00 AM EDT - 04/03/2025 11:59 PM EDT Hospital Encounter [facility] [address] [place] [address] Rosita Esqueda NP Discharge Disposition: Home or Self Care 03/27/2025 Orders Only [facility] [address] [place] [phone] Homehealth, Interface ProviderMD from Last 3 Months Social History Tobacco Use Types Packs/Day Years Used Date Smoking Tobacco: Never Assessed Home Health Assessment: Transportation Answer Date Recorded Lack of Transportation (Medical) No 05/24/2025 Lack of Transportation (Non-Medical) No 05/24/2025 Patient Unable or Declines to Respond No 05/24/2025 Education Answer Date Recorded Are you interested in more education? Not on chepe e 03/27/2025 Are you concerned about learning? Not on file 03/27/2025 No 03/27/2025 No 03/27/2025 Digital Access Answer Date Recorded No 03/27/2025 No 03/27/2025 Reliable internet access at home? Not on file 03/27/2025 Device with a working camera? Not on file Comments Unknown Sex and Gender Information Value Date Recorded Sex Assigned at Not on file Legal Sex Female 12:11 PM EDT Gender Identity Not on file Sexual Orientation Not on file Last Filed Vital Signs Vital Sign Reading Time Taken Comments Blood Pressure 110/62 05/24/2025 1:41 PM EDT Pulse 65 05/24/2025 1:41 PM EDT Temperature 37.3 C (99.2 F) 05/24/2025 1:41 PM EDT Respiratory Rate 16 05/24/2025 1:41 PM EDT Oxygen Saturation 97% 05/24/2025 1:41 PM EDT Inhaled Oxygen Concentration - - Weight - - Height - - Body Mass Index - - Plan of Treatment Not on file Medical Devices Not on file Procedures Procedure Name Priority Date/Time Associated Diagnosis Comments BASIC METABOLIC PANEL Routine 04/03/2025 5:58 AM EDT Hypertension, unspecified type CBC Routine 04/03/2025 5:58 AM EDT Hypertension, unspecified type from Last 3 Months Results * (ABNORMAL) CBC (04/03/2025 5:58 AM EDT) WBC 7.80 4.00 - 11.00 K/uL [facility] RBC 3.79(L) 4.00 - 5.20 M/uL [facility] HGB 11.3(L) 12.0 - 16.0 g/dL [facility] HCT 33.8(L) 36.0 - 46.0 % [facility] PLT 253 150 - 450 K/uL [facility] MCV 89.2 80.0 - 100.0 fL [facility] MCH 29.8 27.0 - 31.0 pg [facility] MCHC 33.4 32.0 - 36.0 g/dL [facility] RDW 13.7 11.5 - 14.5 % [facility] MPV 10.6 8.4 - 12.0 fL [facility] NRBC 0.00 0.00 /100 WBCs [facility] ABSOLUTE NRBC 0.00 0.00 K/uL [facility] 04/03/2025 5:58 AM EDT 04/03/2025 8:16 AM EDT us Rosita Esqueda [employer]OTG[employer] SHELL LOADING MACHINE OPERATOR LAB BLOOD ORDERABLES Final Result [facility] [address] [place] [address] * Basic metabolic panel (04/03/2025 5:58 AM EDT) SODIUM 137 133 - 146 mmol/L [facility] CHLORIDE 101 96 - 108 mmol/L [facility] POTASSIUM 3.9 3.3 - 5.1 mmol/L [facility] CO2 24 21 - 35 mmol/L [facility] BUN 14 6 - 19 mg/dL [facility] CREATININE 0.70 0.5 - 1.5 mg/dL [facility] GLUCOSE 83 70 - 99 mg/dL [facility] CALCIUM 9.5 8.4 - 10.3 mg/dL [facility] EGFR 85 >59 mL/min/1.7 3m2 [facility] Comment:Estimated glomerular filtration rate calculated using the CKD-EPI refit equation. ANION GAP 16 10 - 20 mmol/L [facility] 04/03/2025 5:58 AM EDT 04/03/2025 8:16 AM EDT us Rosita Esqueda [employer]OTG[employer] SHELL LOADING MACHINE OPERATOR LAB BLOOD ORDERABLES Final Result [address] [id number] from Last 3 Months Insurance [place] PART [place] [id number] [facility] MEDIC[facility] PART A & B HEALTH MEDICARE PART A & [address] [place] [address]HEALTH MEDICARE PART A & [facility] MEDICARE PART A & B [facility] Care Teams [employer] Member Relationship Specialty Start Date End Date Jonna Dillard MD [address] [place] [id number] PCP - General Internal Medicine 03/27/25 Additional Source Comments The information contained in this document represents components of the legal health record. It is not the complete legal health record.[facility]
--- NOTE | 2025-06-14 20:44 | PC.NURSE ---
pt sent in from PCP due to urine frequency and blood tinged urine, pt on eliquis, pt denies abdominal pain, back pain, pain with urination. respirations even and unlabored. son at bed side.
[2025-06-14 21:33] VITALS: BP 179/84; PULSE 77; RESP 18; TEMP 36.5; O2SAT 98
== END 2025-06-14 21:36 | disposition home or self-care (01) ==
PROVIDERS: Physician Assistant Medical; Emergency Provider Emergency Medicine; PCP Internal Medicine
DX: N39.0 Urinary tract infection, site not specified (principal); R31.9 Hematuria, unspecified; R35.0 Frequency of micturition; I48.91 Unspecified atrial fibrillation; R10.31 Right lower quadrant pain; Z79.01 Long term (current) use of anticoagulants; Z79.899 Other long term (current) drug therapy
CPT/HCPCS: 36415; 80048; 80076; 81001; 83735; 85025; 87086; 87088; 87186; 99283; 99284

== ENCOUNTER 2025-08-29 11:19 | Outpatient (AMB) | payer MEDICARE, MEDICAID, SELFPAY ==
--- OUTSIDE RECORDS SUMMARY | 2024-05-31 08:30 | XMS_ITS | Continuity of Care Document ---
Author Organization [facility] Address [address] [place] [address] Phone Care Team Providers Care Archaeologist Name Role Phone Loyd TO, Niecy Unavailable Unavailab le Allergies, Adverse Reactions, Alerts Substance Reaction Status Criticality TERBINAFINE HCL Active No Informati on PENICILLIN Active No Information codeine Active No Information Procedures Procedure Date Office/Outpt E&M Established 15 Mins- CT & [place] Duplex Scan-extrem Veins; Uni/ CT & [place] A Duplex Scan-extrem Veins; Uni/ CT & [place] J Inj Scleros Solut; Mx Veins 1- CT & [place] J Ultrason Guidan Needle Bx-rad- CT & MA J Offic/outpt E&m Estab 5 Min Trial- Telem edicine CT & MA Office/Oupt E&M New Pt 30 Mins- CT & [place] Surgical Stockings Juxlite Knee 024 Duplex Scan-extrem Veins; Comp- CT & MA Advance Directives Directive Yes / No Effective Date File Name Other Directive No 05/31/2024 N/A WARNING:The information contained in this section is historical and is provided for information only and does not constitute a legal document or any assurance that the information is still accurate. Please verify the information with the wilcox of the legal document before using it for clinical purposes. Encounters Encounter Description Practice Location Reason(s) For Visit Diagnoses Date Provider Providers Copied on Encounter Office/Outpt E&M Established 15 Mins- CT & [facility], [address] [place] [address] [address], [id number], [place] tel:[phone] [facility] Varicose veins of left lower extremity with other complication sRestless legs syndromeAthe rosclerotic heart disease of [place] coronary artery without angina pectorisCoro nary atherosclero sis due to lipid rich plaqueCerebr al infarction, unspecified 4 Loyd Pemberton. [address] [place] [address], [place], [place], [id number], [place]. tel:[phone] [facility], [address] [place] [address] Dr Yin [address], [id number], [place] tel:[phone] [facility] Encounter for follow-up examination after completed treatment for conditions other than malignant neVaricose veins of left lower extremity with pain 4 Milton BECKER RVT, NOAH Hewitt. [address] [place] [address], [facility] l[place]ANDY, [place], [id number], [place]. tel:[phone] Referring Provider: Kash Rose MD, RVT, NOAH, [address] [place] [address], [id number]. tel:[phone] [facility], [address] [place] [address] Dr Yin [address], [id number], [place] tel:[phone] [facility] Encounter for follow-up examination after completed treatment for conditions other than malignant neVaricose veins of left lower extremity with pain 4 Milton BECKER RVT, NOAH Hewitt. [address] [place], [place] [address]jim gonzalez [place], [id number], [place]. tel:[phone] Referring Provider: Kash Rose MD, RVT, NOAH, [address] [place] [address], [id number]. 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 [address] [place] [address], [facility] [place] [id number], [place]. tel:[phone] Referring Provider: Kash Rose MD, JUANA, NOAH, [address] [place] [address], [place], [address]. tel:[phone] Offic/outpt E&m Estab 5 Min Trial- Telemedicine CT & [place] [facility], [address] [place] [address] [address], [place], [id number], [place] tel:[phone] CVR - [facility] Venous insufficienc y (chronic) (peripheral) Restless legs syndromeAthe rosclerotic heart disease of [place] coronary artery without angina pectorisCoro nary atherosclero sis due to lipid rich plaqueCerebr al infarction, unspecified 4 Hyun Ortega. [address] [place] [address], [facility] [place], [id number], [place]. tel:[phone] Referring Provider: Jonna Ackerman, [address] [place] [address], [address]. tel:[phone] Office/Oupt E&M New Pt 30 Mins- [facility] & [place] [facility], [address] [place] [address] [address], [place], [id number], [place] tel:[phone] CVR - [place] [facility] [place] Pruritus, unspecifiedV aricose veins of left lower extremity with other complication Jerald in right lower legPain in left lower legRestless legs syndromeEsse ntial (primary) hypertension Atherosclero tic heart disease of [place] coronary artery without angina pectorisCoro nary atherosclero sis due to lipid rich plaqueCerebr al infarction, unspecified 4 Milton BECKER, JUANA, NOAH Hewitt. [address] [address], [facility] [place], [id number], [place]. tel:[phone] Referring Provider: Jonna Ackerman, [address] [place] [address], [address]. tel:[phone] [facility], [address], [place], [id number], [place] tel:[phone] CVR - [place] [facility] [place] Chronic venous hypertension (idiopathic) with other complication s of bilateral lower extremity Milton BECKER, RVT, RPVI Kash. [address], [address], [place], [place], [id number], [place]. tel:[phone] Referring Provider: Jonna Soto MD [facility], [address] [place] [address], [address]. tel:[phone] Family History Family Member Type Diagnosis Age At Onset No Information Payers Payer name Insurance type Covered libertarian ID Authoriza tion(s) Medicare NEYDA BARNARD [id number] BCBS NEYDA [id number] Medical Assistance NEYDA [id number] Social History Type Description Quantity Date Captured Comments Alcohol Use Details Unknown Caffeine Use Details Unknown Tobacco Use Status Current non-smoker Smoking Status Never Smoker Non-Smoking Tobacco Use Details : No Details Available : No Details Available Sex Female Vital Signs Date / Time: Height Weight BMI Pulse Rate Blood Pressure Temperature Respiratory Rate Body Surface Area Head Circumference Head Circ. Percentile Wt./Joseph. Percentile BMI percentile Pulse Ox Inhaled Ox 63.500 kg (140.00 lbs) 24.0 8 kg/m eter (2) 120/70 mm[Hg] Chief Complaint And Reason For Visit No Information Reason For Referral Reason For Referral No Information Plan Of Treatment Date Type Action Status Goal Diet education completed Goal Diet education completed Referral Ordered: Weight management: Referral to physician timeframe: 3 Months (related to Body mass index (BMI) 24.0-24.9, adult) ordered Referral Ordered: Weight management: Referral to physician timeframe: 3 Months (related to Body mass index (BMI) 24.0-24.9, adult) ordered History Of Present Illness Encounter Date Complaint History Of Prese nt Illness No Information Functional Status Date Functional Assessmen t No Information Instructions Date Instruction Additional Infor benny Patient education booklet given Related to Varicose veins of left lower extremity with other complications Compression stocking usage as conservative measure Related to Varicose veins of left lower extremity with other complications Lifestyle education Related to B phong mass index (BMI) 24.0-24.9, adult Giving Encouragement to exercise Related to Body mass index (BMI) 24.0-24.9, adult Diet education Related to Body mass index (BMI) 24.0-24.9, adult Compression stocking usage as conservative measure Related to Venous insufficiency (chronic) (peripheral) Pre and post instruc tions reviewed and provided Related to Venous insufficiency (chronic) (peripheral) Pre and post instruc tions reviewed and provided Related to Varicose veins of left lower extremity with other complications Patient education booklet given Related to Varicose veins of left lower extremity with other complications Lifestyle education Related to B phong mass index (BMI) 24.0-24.9, adult Giving Encouragement to exercise Related to Body mass index (BMI) 24.0-24.9, adult Diet education Related to Body mass index (BMI) 24.0-24.9, adult Assessments Type Assessment Date No Information Patient Care Teams Name Effective Dates (start - stop) Status Members No Information
--- OUTSIDE RECORDS SUMMARY | 2024-07-17 08:00 | XMS_ITS ---
Author Organization [facility] Address [address] [place] [phone] Care Team Providers Care Bottom Turning Lathe Tender Name Role Phone Jonna Childress Primary Care Provider Unava ilable Mari Chowdhury Unavailable [phone] Mcelroy Encounters Encounter Location Date Provider Diagnosis [address] [address] 07/17/2024 Mari Chowdhury Plan Of Treatment Next Appt Details Provider Name:Mari Chowdhury , 12/10/2025 11:15:00 AM, [address] [place] [address], [phone], Progress Notes * MARXCandeDOB:[birth year] (85 yo F)Acc No.[id number]:07/17/2024 Progress Note Patient: Cande FRANCISCO Provider: Kamari Chowdhury DPM :1940 A ge:83 Y S ex:Female Date:07/17/2024 Address:[address] [place] [phone] Pcp:Jonna Childress Subjective: * Chief Complaints: * [...] 0 07/17/2024 Generated for Autumn Mancini on: 10/29/2024 02:03 PM EST
--- OUTSIDE RECORDS SUMMARY | 2024-08-08 15:47 | XMS_ITS | Encounter Summary ---
Author Organization [facility] Address [address] [place] [address] Care Team Providers Care Rapid Outsole Stitcher Name Role Phone Jonna Nieto MD Primary Care Prov ider Encounter Details Date Type Department Care Team (Late st Contact Info) Description 08/08/2024 4:47 PM EDT Hospital Encounter TH HISTORIC ENCOUNTERS EASTERN CONVERSION ONLY Jennifer Willingham PA [address] [place] [address] Social History Tobacco Use Types Packs/Day Years [...] care for your loved ones. For example, childcare director or elderly care for an older adult? [...] Care Team (Late st Contact Info) Description 09/10/2025 1:00 PM EST Office Visit Pulmonology - [address] [place] [phone] Rosario Uribe, ZULEIKA [address] [place] [address] 09/25/2025 12:30 PM EST Office Visit Adult Medicine [address] [phone] Jonna Nieto MD [address] [place] [address] 01/25/2026 11:15 AM EDT Office Visit Adult Medicine [address] [phone] Jonna Nieto MD [address] [place] [address] 02/13/2026 9:20 AM EDT Appointment Radiology Department [address] [phone] documented as of this encounter Visit Diagnoses Not on filedocumented in this encounter Care Teams Rapid Outsole Stitcher Relationship Specialty Start Date End Date Jonna Nieto MD [address] [place] [address] PCP - General Internal Medicine 07/13/22 documented as of this encounter
[2025-08-29 11:42] VITALS: BP 122/84; PULSE 65; O2SAT 97; BMI 30.1
--- NOTE | 2025-08-29 11:42 | MHC.OFFVIS ---
Vital Signs 08/29/25 11:42 Height 5 ft 3 in Weight 170 lb BMI 30.1 BP 122/84 Blood Pressure Location Rt brachial Position Sitting Pulse 65 Pulse Source Pulse Oximeter Pulse Oximetry (%) 97 Oxygen Delivery Method Room Air Intake Visit Reasons: follow up (COMF.) Intake Note: Patient presents for follow up EMG and nerve conduction study on 08/30/24 Fire Lookout Required: No Accompanied by: Self / Same As Patient Allergies codeine Allergy (Unknown, Verified 08/29/25 11:42) rash Penicillins Adverse Reaction (Verified 08/29/25 11:42) Hives terbinafine (From Lamisil) Adverse Reaction (Verified 08/29/25 11:42) Hives Medication List - Last Reconciled 08/29/25 by PAIGE Glass acetaminophen 1,000 mg PO TID PRN amlodipine 2.5 mg PO DAILY apixaban (Eliquis) 5 mg PO BID cefuroxime axetil 250 mg PO BID 5 days cranberry fruit (cranberry) 450 mg PO BID gabapentin 200 mg (2 x 100 mg) PO BEDTIME 30 days loperamide 4 mg PO QID PRN losartan 50 mg PO DAILY melatonin 6 mg PO BEDTIME metoprolol tartrate 25 mg PO BID ynacmiyjfawh-evdaxcym-wnfjod 1 tab PO DAILY nitrofurantoin monohyd/m-cryst 100 mg 1 cap PO BID pantoprazole 40 mg PO DAILY@0630 potassium chloride ER 20 mEq PO DAILY vitamin D3-vitamin K2 125-90 mcg 1 cap PO DAILY walker (Ultra-Light Rollator [facility]) As directed HPI Comments Details: The patient is an 84-year-old female presenting with a history of left MCA stroke and bilateral lower extremity paresthesia. Patient is accompanied by her son. Interval history: May 2025 [facility] ER eval for UTI, which has resolved. She had rheumatology consult, and underwent follow-up lab workup, which appears to be normal. Follow-up is pending. She reports she has also had a vascular consult, and was told she has venous insufficiency, but there was no indication for surgical intervention. She continues to experience paresthesias of the bilateral, left more so than right, lower extremity and chronic foot and leg pain. She states her feet often feet cold and prickly- and this can move up the left leg. She is prone to calling out in pain, around 2-3 in the morning. She states, at that time, it feels like her toes will shrink and fall off. However, her son states the toes look fine. She states these are not muscle cramps or spasms. She does not like to wear fitted socks, feels they cause too much compression. She denies lower extremity weakness or swelling, tremor, parasomnias. For son notes that she spends the majority of her day inactive. Alleviating factors: Gabapentin 200 mg nightly, which helps some. Previously has not tolerated gabapentin 300 mg, caused a.m. drowsiness. OTC neuropathy cream, containing menthol, arnica, vitamin B6 and E, MSM, aloe vera- helps some OTC Dr العراقي neuropathy supplement, containing vitamin-D, B2, B6, folate, B12, Mag, benfotiamine, alpha-lipoic acid 200 mg-seems to help some. Wrapping her feet at night in the blankets also helps some. She denies any interval stroke-like symptoms. Previous workup: - Tests: CT head last week showed no acute intracranial abnormality. - BLE EMG/ NCS , 08/30/2024: sensorimotor peripheral neuropathy. [facility] Medical History (Updated 06/15/25 @ 00:01 by Emanuel Molina) Stroke Vitamin D deficiency Multifocal pneumonia Atrial fibrillation Pyuria Episode of syncope Urinary tract infection Syncope, vasovagal Right hemiparesis HLD (hyperlipidemia) Atrial fibrillation History of malignant melanoma History of basal cell carcinoma History of dysplastic nevus Degenerative joint disease (DJD) of hip Low back pain radiating to left lower extremity History of squamous cell carcinoma Venous insufficiency (chronic) (peripheral) Diarrhea Hypertension Surgical History H/O breast biopsy Hx of colonoscopy Hx of cholecystectomy Hx of appendectomy Family History Father Throat cancer Mother Kidney failure Social History Household Members: Family Housing: House Do you presently have visiting nurse or other home services: Yes Alcohol intake: current Alcohol intake frequency: 0-2 drinks per day Alcohol type: wine Comment: pt aware she needs to ask for help before getting up Patient Tobacco Use Status: Never used Tobacco Advance Directives Date on File: 11/02/23 service: No Physical Exam Vital Signs: Last Vital Signs Pulse 65 08/29/25 11:42 BP 122/84 08/29/25 11:42 Pulse Ox 97 08/29/25 11:42 Oxygen Delivery Method Room Air 08/29/25 11:42 BMI result Body Mass Index 30.1 Const General: cooperative and no acute distress Resp Effort & Inspection: normal respiratory effort and able to speak in complete sentences Neuro Other: Alert & Oriented w/ STM lapses. Right lower facial, RUE weakness. Mild dysarthria- speech clear Bilateral ankle tightness. Needs physical assist she stand up, slight stoop, shorter steps, though overall steady gait with cane. 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 She is on gabapentin. Code(s): G62.9 - Polyneuropathy, unspecified Category: Medical (2) History of ischemic left MCA stroke: Comment: 08/10/23 Code(s): Z86.73 - Personal history of transient ischemic attack (TIA), and cerebral infarction without residual deficits Category: Medical (3) Paresthesia of both lower extremities: Code(s): R20.2 - Paresthesia of skin Category: Medical (4) Foot pain, bilateral: Comment: Due to neuropathy. She also has pes planus and valgus valgus deformity of bilateral feet. Code(s): M79.671 - Pain in right foot; M79.672 - Pain in left foot Category: Medical Plan For left MCA CVA: Continue optimized CV risk reduction strategies- ASA, Eliquis, statin, amlodipine, losartan. Follow up with cardiology and pulmonology as scheduled Diet should include balanced nutrition with current supplements. Continue to walk with a cane Future considerations: sleep study. For bilateral lower extremity sensory motor neuropathy: Reviewed interval lab workup, which was unremarkable Will request vascular notes and work-ups Continue Gabapentin 200mg qhs. May continue OTC neuropathy supplement- advised to limit to 1 dose per day, as alpha lipoic acid may enhance effectiveness of Eliquis May continue OTC neuropathy topical cream We will request PT eval and treat May try warm wool socks, warming foot vibration/socks. Future considerations: Trial of pregabalin, duloxetine, or dopaminergic therapy. Report any new or worsening symptoms immediately. Follow-up upon review of above and in 6 months or sooner in clinic. Orders: Orders PT Evaluation and Treatment 08/29/25 G62.9 - Polyneuropathy, unspecified, M79.671 - Pain in right foot, M79.672 - Pain in left foot, R20.2 - Paresthesia of skin Coding Level of Care Code Est Pt Level 4 (03370) Diagnoses Sensorimotor neuropathy G62.9 History of ischemic left MCA stroke Z86.73 Paresthesia of both lower extremities R20.2 Foot pain, bilateral M79.671; M79.672
--- OUTSIDE RECORDS SUMMARY | 2025-08-29 14:03 | XMS_ITS | Encounter Summary ---
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 For example, child support specialist or elderly care for an older [...] is your living situation? Unrecognized valu e 10/25/2024 Comments No Sex and Gender Information Value Date Recorded Sex Assigned at Not on file Legal Sex Female 1:21 AM EST Gender Identity Not on file Sexual Orientation Not on file documented as of this encounter Plan of Treatment Upcoming Encounters Date Type Department Care Team (Late st Contact Info) Description 09/10/2025 1:00 PM EST Office Visit Pulmonology - [place] [address] [facility] [address] [place] [address] Rosario Uribe NP [address] [place] [phone] 09/25/2025 12:30 PM EST Office Visit Adult [address] [phone] Jonna Nieto MD [address] [place] [address] 01/25/2026 11:15 AM EDT Office Visit [address] [phone] Jonna Nieto MD [address] [place] [address] 02/13/2026 9:20 AM EDT Appointment Radiology Department [address] [phone] documented as of this encounter Visit Diagnoses Not on filedocumented in this encounter Additional Health Concerns Assessment Noted Time A fall risk assessment has been complete d for the patient 10/25/2024 2:40 PM EST documented as of this encounter Care Teams Primer Waterproofing Machine Operator Relationship Specialty Start Date End Date Jonna Nieto MD [address] [place] [address] PCP - General Internal Medicine 07/13/22 documented as of this encounter
--- OUTSIDE RECORDS SUMMARY | 2025-08-29 14:03 | XMS_ITS | Clinical Summary ---
Author Organization 175 [facility] Address [address] [place] [address] Phone Care Team Providers Care Research Nutritionist Name Role Phone Jonna Nieto MD Primary Care Prov ider Allergies Active Allergy Reactions Criticality Noted Date Comments Acetaminophen-Codeine 07/05/2022 Codeine 08/03/2022 Intolerance, burping, esophageal irritation Penicillin G Procaine Hives 09/23/2005 Terbinafine High 08/03/2007 Other Reaction(s): Rash/Dermatitis Medications Lactobacillus acidophilus (PROBIOTIC ORAL) Take by mouth. Active acetaminophen (TYLENOL) 500 mg tablet Take 2 Tabs by mouth 3 times daily as needed. Active clotrimazole-bet amethasone (LOTRISONE) 1-0.05 % cream 1 APPLICATION EXTERNALLY TWICE A DAY 30 DAYS 3 Active cranberry fruit 450 mg tablet as directed Orally Active gabapentin (NEURONTIN) 100 mg capsule TAKE 1 -3 CAPS ORALLY BEDTIME FOR 30 DAYS 4 Active ketoconazole (NIZORAL) 2 % cream APPLY TO RASH ON TRUNK TWICE A DAY UNTIL RESOLVED, AND NEEDED FLARES 4 Active loperamide (IMODIUM) 2 mg capsule Take 1 Capsule by mouth 4 times daily as needed for Diarrhea. 4 Active amLODIPine (NORVASC) 2.5 mg tablet Take 1 tablet (2.5 mg total) by mouth 1 (one) time each day. 90 tablet 1 4 Active nystatin (MYCOSTATIN) 100,000 unit/gram powder Apply 1 Application topically if needed for rash. 5 Active cholecalciferol, vitD3,/vit K2 (vitamin D3-vitamin K2) 125-90 mcg capsule Take 1 capsule by mouth 1 (one) time each day. Active pantoprazole (PROTONIX) 40 mg EC tablet TAKE 1 TABLET BY MOUTH EVERY DAY 90 tablet 5 Active Eliquis 5 mg tablet TAKE 1 TABLET BY MOUTH 2 TIMES DAILY EVERY 12 HOURS 180 tablet 1 5 Active metoprolol tartrate (LOPRESSOR) 50 mg tablet Take 1 tablet (50 mg total) by mouth 2 (two) times a day. 90 tablet 1 5 Active ferrous sulfate 325 mg (65 mg iron) EC tabletIndication s:Iron deficiency anemia, unspecified iron deficiency anemia type TAKE 1 TABLET BY MOUTH 1 TIME EACH DAY WITH BREAKFAST. 90 tablet 5 Active losartan (COZAAR) 50 mg tablet TAKE 1 TABLET BY MOUTH EVERY DAY (NEED MED D CARD) 90 tablet 1 5 Active Active Problems Problem Noted Date Diagnosed Date Overweight (BMI 25.0-29.9) 02/21/2025 Pneumonia 12/07/2024 Hemiplegia and hemiparesis f ollowing cerebral infarction affecting right dominant side ([facility] V24, [facility] V28) 12/07/2024 History of falling 12/07/2024 Personal history of urinary (tract) infections 0 12/07/2024 Personal history of malignant melanoma of skin 0 12/07/2024 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 Assessment & Plan (07/24/2025 12:03 PM EDT): Currenty asymptomatic. No chest pain, palpitations. Continue Apixaban BID, metoprolol. Venous insufficiency (chronic) (peripheral) 08/18 Overview (09/21/2024): Dr. Beltran Prediabetes 01/02/2022 Collagenous colitis 12/28/2018 Overview (09/21/2024): Diagnosed on colonoscopy 11/2018 Intermittent diarrhea 09/21/2018 Benign essential hypertension 01/04/2017 Overview (09/21/2024): Last Assessment & Plan: Well-controlled on current regimen of losartan and metoprolol, continue. Assessment & Plan (07/24/2025 5:07 PM EDT): Well controlled, today 132/69. Currently on Metoprolol, amlodipine, losartan. Low back pain radiating to left leg 01/23/2014 Overview (09/21/2024): Also groin pain and knee pain Osteoarthritis of hip 01/23/2014 Overview (09/21/2024): IMO update Hypercholesterolemia 01/12/2012 Overview (09/21/2024): Last Assessment & Plan: Continue high-dose atorvastatin for secondary prevention. Assessment & Plan (07/24/2025 5:07 PM EDT): Patient does not tolerate statins. Will stick to the diet and exercise. Hemorrhoids 02/26/2010 Encounters Date Type Department Care Team Description 07/24/2025 11:30 AM EDT Office Visit Adult Medicine [address] [phone] Jonna Ojeda MD Encounter for general adult medical examination without abnormal findings (Primary Dx); Atrial fibrillation, unspecified type (CMS/HCC V24, CMS/HCC V28); Benign essential hypertension; Hypercholesterolemia; Postmenopausal; Advance care planning 07/19/2025 Results Follow-Up Adult [address] [phone] Jonna Ojeda MD 07/16/2025 12:32 PM EDT - 07/16/2025 11:59 PM EDT Hospital Encounter CT Scan - [address] [phone] Lung nodules Discharge Disposition: Home or Self Care 07/10/2025 1:00 PM EDT Office Visit Pulmonology - Home [address] [facility] [address] [place] [phone] Rosario Uribe NP Lung nodules (Primary Dx); Longstanding persistent atrial fibrillation (CMS/HCC V24, CMS/HCC V28); Obesity (BMI 30.0-34.9) 06/13/2025 Telephone Adult Medicine [address] [phone] Jonna Ojeda MD 06/05/2025 9:57 AM EDT - 06/05/2025 11:59 PM EDT Hospital Encounter Radiology Department - [address] [phone] Right thyroid nodule Discharge Disposition: Home or Self Care from Last 3 Months Immunizations Immunization Administration Dates Next Due Pfizer SARS-CoV-2 COVID-19, [...] cyst rwemoved long time ago SALPINGOOPHORECTOMY PROCEDURE: MI LAPAROSCOPY W/RMVL ADNEXAL STRUCTURES; COMMENT: cyst removed APPENDECTOMY 1964 PROCEDURE: MI APPENDECTOMY CHOLECYSTECTOMY 1968 PROCEDURE: MI LAPAROSCOPY SURG CHOLECYSTECTOMY FINE NEEDLE ASPIRATION PROCEDURE: FINE NDLE ASPRTN W/IMAGING GUIDANCE; COMMENT: lt. breast bx-benign BREAST SURGERY PROCEDURE: MI UNLISTED PROCEDURE BREAST; COMMENT: lt. cyst removed... [...] for your loved ones. For example, children's counselor or elderly care for an older [...] Sign Reading Time Taken Comments Blood Pressure 132/69 07/24/2025 11:36 AM EDT Pulse 66 07/24/2025 11:36 AM EDT Temperature 36.5 C (97.7 F) 07/24/2025 11:36 AM EDT Respiratory Rate 14 07/24/2025 11:36 AM EDT Oxygen Saturation 98% 07/24/2025 11:36 AM EDT Inhaled Oxygen Concentration - - Weight 76.3 kg (168 lb 3.2 oz) 07/24/2025 11:36 AM EDT Height 160 cm (5' 3 ) 07/24/2025 11:36 AM EDT Body Mass Index 29.8 07/24/2025 11:36 AM EDT Plan of Treatment Upcoming Encounters Date Type Department Care Team (Late st Contact Info) Description 09/10/2025 1:00 PM EST Office Visit Pulmonology - [address] [place] [phone] Rosario Uribe NP [address] [place] [phone] 09/25/2025 12:30 PM EST Office Visit Adult Medicine [address] [phone] Jonna Nieto MD [address] [place] [phone] 01/25/2026 11:15 AM EDT Office Visit Adult Medicine East - [address] [phone] Jonna Nieto MD [address] [place] [address] 02/13/2026 9:20 AM EDT Appointment Radiology Department - [address] [phone] Health Maintenance Due Date Last Done Comments Zoster Vaccines (1 of 2) 1959 RSV Immunization Adult Patients (1 - 1-dose 75+ series) 2015 Osteoporosis Screening (Bone Density Screening) 09/26/2022 COVID-19 Vaccine ( season) 2025 01/14/2021, 12/24/2020, 12/03/2020 Hypertension/CHF/CAD Annual BMP Blood Test 02/21/2026 02/21/2025, 10/25/2024, 09/19/2024, Additional history exists Influenza Vaccine (#1) 2026 Postp oned from 06/18/2025 (Patient Refused) Falls Risk Assessment 07/24/2026 07/24/2025, 025 Medicare Annual Wellness Visit 07/24/2026 07/24/2025 Social Influencers of Health Screening 07/24/2026 07/24/2025, 10/25/2024 Cholesterol Screening (Lipid Panel) 09/19/2029 09/19/2024, 09/19/2024, 09/19/2024, Additional history exists DTaP,Tdap,and Td Vaccines (4 - Td or Tdap) 08/06/2033 08/06/2023, 07/10/2013, 09/18/2004 Pneumococcal Vaccine: 50+ Years Completed 07/06/2016, 05/09/2008 Depression Screening Completed 07/24/2025, 07/19/20 24 HIB Vaccines Aged Out No longer eligi [...] Procedure Name Priority Date/Time Associated Diagnosis Comments CBC WITH AUTO DIFFERENTIAL Routine 07/19/2025 11:28 AM EDT Iron deficiency anemia, unspecified iron deficiency anemia type CBC AND DIFFERENTIAL Routine 07/19/2025 11:28 AM EDT Iron deficiency anemia, unspecified iron deficiency anemia type CT CHEST WO CONTRAST Routine 07/16/2025 12:54 PM EDT Lung nodules US HEAD NECK SOFT TISSUE Routine 06/05/2025 10:29 AM EDT Right thyroid nodule BASIC METABOLIC PANEL Routine 02/21/2025 9:50 AM EDT Decreased GFR LIPID PANEL WITH REFLEX TO DIRECT LDL Routine 09/19/2024 11:59 AM EST Benign hypertension Hypercholesterolemi a Prediabetes HM DEPRESSION SCREENING Routine 07/19/2024 from Last 3 Months or Most Recently Relevant to Health Maintenance Results * (ABNORMAL) CBC auto differential (07/19/2025 11:28 AM EDT) WBC 10.1 4.8 - 10.8 K/mcL LAB HEMETOLOGY METHOD 07/19/2025 12:21 PM [facility] RBC 4.50 3.80 - 4.80 M/mcL LAB HEMETOLOGY METHOD 07/19/2025 12:21 PM [facility] Hemoglobin 13.7 11.5 - 16.0 g/dL LAB HEMETOLOGY METHOD 07/19/2025 12:21 PM [facility] Hematocrit 42.6 35.0 - 47.0 % LAB HEMETOLOGY METHOD 07/19/2025 12:21 PM [facility] MCV 95.1 79.0 - 98.0 FL LAB HEMETOLOGY METHOD 07/19/2025 12:21 PM [facility] MCH 30.6 27.0 - 32.0 pcg LAB HEMETOLOGY METHOD 07/19/2025 12:21 PM [facility] MCHC 32.2 32.0 - 37.0 g/dL LAB HEMETOLOGY METHOD 07/19/2025 12:21 PM [facility] RDW 13.9 11.0 - 15.0 % LAB HEMETOLOGY METHOD 07/19/2025 12:21 PM [facility] Platelets 277 130 - 400 K/mcL LAB HEMETOLOGY METHOD 07/19/2025 12:21 PM [facility] MPV 10.8 7.0 - 11.0 FL LAB HEMETOLOGY METHOD 07/19/2025 12:21 PM [facility] NRBC 0.0 <1.0 % LAB HEMETOLOGY METHOD 07/19/2025 12:21 PM [facility] NRBC Absolute 0.00 <0.10 K/mcL LAB HEMETOLOGY METHOD 07/19/2025 12:21 PM [facility] Neutrophils Relative 65.5 % LAB HEMETOLOGY METHOD 07/19/2025 12:21 PM [facility] Lymphocytes Relative 22.1 % LAB HEMETOLOGY METHOD 07/19/2025 12:21 PM [facility] Monocytes Relative 7.0 % LAB HEMETOLOGY METHOD 07/19/2025 12:21 PM [facility] Eosinophils Relative 3.8 % LAB HEMETOLOGY METHOD 07/19/2025 12:21 PM [facility] Basophils Relative 1.0 % LAB HEMETOLOGY METHOD 07/19/2025 12:21 PM [facility] Immature Granulocytes Relative 0.6 % LAB HEMETOLOGY METHOD 07/19/2025 12:21 PM [facility] Neutrophils Absolute 6.59 1.50 - 7.00 K/mcL LAB HEMETOLOGY METHOD 07/19/2025 12:21 PM [facility] Lymphocytes Absolute 2.22 1.00 - 5.00 K/mcL LAB HEMETOLOGY METHOD 07/19/2025 12:21 PM [facility] Monocytes Absolute 0.70 0.20 - 1.00 K/mcL LAB HEMETOLOGY METHOD 07/19/2025 12:21 PM [facility] Eosinophils Absolute 0.38 0.00 - 0.50 K/mcL LAB HEMETOLOGY METHOD 07/19/2025 12:21 PM [facility] Basophils Absolute 0.10 0.00 - 0.20 K/mcL LAB HEMETOLOGY METHOD 07/19/2025 12:21 PM [facility] Immature Granulocytes Absolute 0.06(H) 0.00 - 0.03 K/mcL LAB HEMETOLOGY METHOD 07/19/2025 12:21 PM [facility] Blood Venous blood specimen / Unknown Venipuncture / Unknown 07/19/2025 11:28 AM EDT 07/19/2025 11:28 AM EDT us Jonna Nieto MD LAB BLOOD ORDERABL ES Final Result [facility] [address] [place] [address], [place] [phone] * CT Chest wo Contrast (07/16/2025 12:54 PM EDT) Anatomical Region Laterality Modality Body Computed Tomogra phy 07/16/2025 4:37 PM EDT Impressions 07/16/2025 4:56 PM EDT 1. Stable 0.9 cm groundglass nodule within the left upper lobe. This is stable from the 11/02/[address] chest in one year 2. Multiple solid nodules measuring up to 4 mm. 3. Faint groundglass attenuation within the peripheral left upper lobe and medial posterior right lower lobe. Findings may represent infectious or inflammatory etiology. -------- FINAL REPORT -------- Dictated By: Miriam Jacob Dictated Date: 07/16/2025 16:37 ET Assigned Physician: Miriam Jacob Reviewed and Electronically Signed By: Miriam Jacob Signed Date: 07/16/2025 16:56 ET Workstation ID: [id number] Transcribed By: Self Edit Transcribed Date: 07/16/2025 16:37 ET Narrative 07/16/2025 4:[address] CHEST HISTORY: Lung nodule, > 8mm Patient had CT at [facility] in 11/2024 which showed lung nodules with largest 9mm on REX. TECHNIQUE: Chest CT was performed utilizing contiguous noncontrasted axial images from the thoracic inlet to below the diaphragm. The images were reformatted in the coronal and sagittal planes. Radiation dosage is 12.26mGy COMPARISON: CT chest from 12/08/2024, CT chest from 11/02/2024 FINDINGS: Base of neck: Hypodensity within the right thyroid measures 0.9 cm. Mediastinum: The heart is normal in size, trace pericardial effusion. No mediastinal lymphadenopathy. Mild atherosclerosis of the thoracic aorta. Lungs: Evaluation of the lung parenchyma demonstrates a solid 4 mm nodule along the right fissure (series 2, image 162). 3 mm solid nodule within the right middle lobe (series 2, image 167). 4 mm solid nodule within the right lower lobe (series 2, image 165). Stable 0.9 cm groundglass nodule within the left upper lobe (series 2, image 103) (series 2, image 102). Faint ground glass attenuation within the peripheral left upper lobe. Multiple scattered 1 to 2 mm nodules are present throughout the right lung. Faint groundglass attenuation is also present within the medial posterior right lower lobe. No focal consolidation or effusion. Apical pleural-parenchymal scarring. The trachea and mainstem bronchi are patent. Upper Abdomen: Limited visualization of the extreme upper abdomen demonstrates hepatic steatosis. MSK: Soft tissues are normal. Moderate degenerative changes of the thoracic spine. Procedure Note Miriam Jacob MD - 07/16/2025 CT CHEST HISTORY: Lung nodule, > 8mm Patient had CT at [facility] in 11/2024 which showed lung nodules with largest 9mmon REX. TECHNIQUE: Chest CT was performed utilizing contiguous noncontrasted axialimages from the thoracic inlet to below the diaphragm. The images werereformatted in the coronal and sagittal planes. Radiation dosage is12.26mGy COMPARISON: CT chest from 12/08/2024, CT chest from 11/02/2024 FINDINGS: Base of neck: Hypodensity within the right thyroid measures 0.9 cm. Mediastinum: The heart is normal in size, trace pericardial effusion. Nomediastinal lymphadenopathy. Mild atherosclerosis of the thoracic aorta. Lungs: Evaluation of the lung parenchyma demonstrates a solid 4 mm nodulealong the right fissure (series 2, image 162). 3 mm solid nodule withinthe right middle lobe (series 2, image 167). 4 mm solid nodule within theright lower lobe (series 2, image 165). Stable 0.9 cm groundglass nodulewithin the left upper lobe (series 2, image 103) (series 2, image 102).Faint ground glass attenuation within the peripheral left upper lobe.Multiple scattered 1 to 2 mm nodules are present throughout the rightlung. Faint groundglass attenuation is also present within the medialposterior right lower lobe. No focal consolidation or effusion. Apicalpleural-parenchymal scarring. The trachea and mainstem bronchi are patent. Upper Abdomen: Limited visualization of the extreme upper abdomendemonstrates hepatic steatosis. MSK: Soft tissues are normal. Moderate degenerative changes of thethoracic spine. IMPRESSION: 1. Stable 0.9 cm groundglass nodule within the left upper lobe. This isstable from the 11/02/[address] chest in one year 2. Multiple solid nodules measuring up to 4 mm. 3. Faint groundglass attenuation within the peripheral left upper lobeand medial posterior right lower lobe. Findings may represent infectiousor inflammatory etiology. -------- FINAL REPORT -------- Dictated By: Miriam Jacob Dictated Date: 07/16/2025 16:37 ET Assigned Physician: Miriam Jacob Reviewed and Electronically Signed By: Miriam Jacob Signed Date: 07/16/2025 16:56 ET Workstation ID: [id number] Transcribed By: Self Edit Transcribed Date: 07/16/2025 16:37 ET us Rosario Uribe SKID WORKER IMG CT PROCEDURES Final Result * US Head Neck Soft Tissue (06/05/2025 10:29 AM EDT) Anatomical Region Laterality Modality Head and Neck Ultrasound 06/05/2025 10:3 5 AM EDT Impressions 06/05/2025 10:54 AM EDT Stable right midpole nodule -------- FINAL REPORT -------- Dictated By: Miriam Jacob Dictated Date: 06/05/2025 10:35 ET Assigned Physician: Miriam Jacob Reviewed and Electronically Signed By: Miriam Jacob Signed Date: 06/05/2025 10:54 ET Workstation ID: [id number] Transcribed By: Self Edit Transcribed Date: 06/05/2025 [...] Signed Date: 06/05/2025 10:54 ET Workstation ID: [id number] Transcribed By: Self Edit Transcribed Date: 06/05/2025 10:35 ET us Jonna Nieto MD [facility] US PROCEDURES Final Result * Basic metabolic panel (02/21/2025 9:50 AM EDT) Sodium 138 133 - 145 mmol/L LAB CHEMISTRY METHOD 02/21/2025 1:16 PM EDT [facility] Potassium 3.9 3.5 - 5.5 mmol/L LAB CHEMISTRY METHOD 02/21/2025 1:16 PM EDT [facility] Chloride 106 96 - 110 mmol/L LAB CHEMISTRY METHOD 02/21/2025 1:16 PM [facility] CO2 25 21 - 32 mmol/L LAB CHEMISTRY METHOD 02/21/2025 1:16 PM [facility] Anion Gap 7 3 - 11 LAB CHEMISTRY METHOD 02/21/2025 1:16 PM [facility] Glucose 93 70 - 100 mg/dL LAB CHEMISTRY METHOD 02/21/2025 1:16 PM [facility] BUN 24 5 - 25 mg/dL LAB CHEMISTRY METHOD 02/21/2025 1:16 PM [facility] Creatinine 0.92 0.50 - 1.10 mg/dL LAB CHEMISTRY METHOD 02/21/2025 1:16 PM [facility] eGFR 62 >=60 mL/min/1. 73m2 LAB CHEMISTRY METHOD 02/21/2025 1:16 PM [facility] Comment:Calculation based on the Chronic Kidney Disease Epidemiology Collaboration (CKD-EPI) equation refit without adjustment for race. BUN/Creatinine Ratio 26.1 LAB CHEMISTRY METHOD 02/21/2025 1:16 PM [facility] Calcium 9.6 8.5 - 10.5 mg/dL LAB CHEMISTRY METHOD 02/21/2025 1:16 PM [facility] Blood Venous blood specimen / Unknown Venipuncture / Unknown 02/21/2025 9:50 AM EDT 02/21/2025 9:50 AM EDT us Katina MC LAB BLOOD ORDERABLES Final Resul t [facility] [address] [place] [address], * (ABNORMAL) Lipid panel with reflex to direct LDL (09/19/2024 11:59 AM EST) Cholesterol 228(H) 0 - 200 mg/dL LAB CHEMISTRY METHOD 09/19/2024 2:37 PM EST [facility] Triglycerides 200(H) 0 - 150 mg/dL LAB CHEMISTRY METHOD 09/19/2024 2:37 PM [facility] HDL 50 >=40 mg/dL LAB CHEMISTRY METHOD 09/19/2024 2:37 PM [facility] LDL Calculated 138(H) 0 - 100 mg/dL LAB CHEMISTRY METHOD 09/19/2024 2:37 PM [facility] VLDL Cholesterol Edmundo 40 mg/dL LAB CHEMISTRY METHOD 09/19/2024 2:37 PM [facility] Non HDL Chol. (LDL+VLDL) 178(H) <145 mg/dL LAB CHEMISTRY METHOD 09/19/2024 2:37 PM [facility] Chol/HDL Ratio 4.6(H) 0.0 - 4.4 LAB CHEMISTRY METHOD 09/19/2024 2:37 PM [facility] Blood Venous blood specimen / Unknown Venipuncture / Unknown 09/19/2024 11:59 AM EST 09/19/2024 11:59 AM EST Jennifer MC LAB BLOOD ORDERABLES Final Resu lt [facility] [address] [place] [address], * Depression Screening (07/19/2024) Pathologist [facility] Depression Screening Abstracted Historical Provider HEALTH MAINTENANCE Final Result from Last 3 Months or Most Recently Relevant to Health Maintenance Insurance MEDICARE [facility] Advance Directives Documents on File Type Date Recorded Patient Addiction Social Worker Expl anation Advance Directives and Living Will 07/24/2025 12:12 PM HEALTH CARE [facility]OX[facility] - [facility] Care Teams Research Nutritionist Relationship Specialty Start Date End Date Jonna Nieto MD [address] [place] [phone] PCP - General Internal Medicine 07/13/22
--- OUTSIDE RECORDS SUMMARY | 2025-08-29 14:03 | XMS_ITS | Patient Health Record ---
Author Organization [facility] Address [address] [place] [address] Care Team Providers Care Chief Deputy Name Role Phone Jonna Childress Primary Care Provider Unamarcia ilable Black, Mari Unavailable [phone] Allergies Allergen (clinical drug ingredient) Drug/Non Drug Allergy documented on EMR Reaction Allergy Type Onset Date Status amoxicillin Amoxicillin hives Drug Allergy Act shira Lamisil rash Drug Allergy Active acetaminophen / oxycodone Percocet Unknown Drug Allergy Active Reason For Referral No Information Medications Medication SIG (Take, Route, Frequency, Duration) Notes Start Date End Date Status Metoprolol Succinate ER 50 MG 1 tablet Orally Once a day Active Tylenol prn Active Fiber Not-Taking Atorvastatin Calcium 80 MG 1 tablet Oral ly Once a day; Duration: 30 day(s) Not-Taking Sulfamethoxazole-Trimethop rim 800-160 MG 1 tablet Orally Three times a Week; Duration: 10 day(s) Not-Taking traZODone HCl 50 MG 1 tablet at bedtime as needed Orally Once a day; Duration: 30 day(s) Not-Taking Centrum Silver Not-T aking Multivitamin Not-Edson ing Zinc Gluconate 50 MG 1 tablet Orally Onc e a day; Duration: 30 day(s) Not-Taking Potassium Chloride N ot-Taking Losartan Potassium 50 MG 1 tablet Orally Once a day Active Pantoprazole Sodium 40 MG 1 tablet Orall y Once a day; Duration: 30 day(s) Active Atenolol 100 MG Orally Not- Taking Lotrimin AF Not-Taki ng Mometasone Furoate N ot-Taking Probiotic Active Hydrocortisone PRN Activ e Nifediac CC 60 MG Orally No t-Taking amLODIPine Besylate 5 MG 1 tablet Orally Once a day; Duration: 30 day(s) Active Colestipol HCl Not-T aking Eliquis 5 MG 1 tablet Orally Twic e a day; Duration: 30 day(s) Active Metamucil Not-Taking Cranberry 450 MG as directed Orally Active immodium Not-Taking Ketoconazole 2 % 1 application Externally Once a day; Duration: 14 day(s) PNR Active Clotrimazole-Betamethasone 1-0.05 % 1 application Externally Twice a day; Duration: 30 days 12/10/2022 Not-Takin g Melatonin 3 MG 1 tablet at bedtime as needed Orally Once a day; Duration: 30 day(s) Active NIFEdipine 60 MG Orally Not -Taking Nystatin Active Ciclopirox 0.77 % 1 application to affected area Externally Twice a day; Duration: 30 days 03/29/2017 Not-Takin g Gabapentin Active Immunizations Vaccine Route Administration Date Status Comme [...] Problem Status W/U Status Risk Notes Problem Bilateral atherosclerosis of arteries of lower limbs (disorder) ([id number] ) Atherosclerosis of artery of both lower extremities (I70.203) Active confirmed Q7(A), Q8(2B), Q9(1B,2 C) Vital Signs Blood pressure diastolic 65 mm Hg 08/13/2025 Height 5 ft 3 in in 08/13/2025 Blood pressure systolic 130 mm Hg 08/13/2025 Weight 163 lbs 08/13/2025 BMI 28.87 kg/m2 08/13/2025 Procedures Procedure Date Ordered Date Performed Result Body Sit e 66627-DIYHYWY NAIL, 6 OR MORE 09/07/2024 N/A 65216-Nzltilzq Plate 09/07/2024 N/A 74593-LRIVECH NAIL, 6 OR MORE 01/04/2025 N/A 11527-GMBLJNQ NAIL, 6 OR MORE 05/10/2025 N/A 22196-XNQA SKIN LESIONS, 2 TO 4 05/10/2025 N/A 45661-ECCBZNW NAIL, 6 OR MORE 08/13/2025 N/A 28153-Hunbcvnn Plate 08/13/2025 N/A 99065-ZVGB SKIN LESIONS, 2 TO 4 08/13/2025 N/A Encounters Encounter Location Date Provider Diagnosis [address] [address] 09/07/2024 Mari Black Tinea unguium B35.1 ; Ingrown nail L60.0 ; Pain in right toe(s) M79.674 and Pain in left toe(s) M79.[address] [address] 01/04/2025 Mari Black Tinea unguium B35.1 ; Neuropathy G62.9 ; Pain in right toe(s) M79.674 ; Pain in left toe(s) M79.675 ; Neuritis M79.2 ; 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 ; Pain in left foot M79.672 and Pain in right foot M79.[address] [address] 05/10/2025 Mari Black Tinea unguium B35.1 ; Pain in right toe(s) M79.674 ; Pain in left toe(s) M79.675 and Atherosclerosis of artery of both lower extremities I70.[address] [address] 08/13/2025 Mari Black Tinea unguium B35.1 ; Pain in right toe(s) M79.674 ; Pain in left toe(s) M79.675 ; Atherosclerosis of artery of both lower extremities I70.203 and Ingrown nail L60.0 Assessments Encounter Date Diagnosis (ICD Code) Assessment Notes Treatment Notes Treatment Clinical Notes Section Notes 09/07/2024 Tinea unguium (ICD-10 - B35.1) 09/07/2024 Ingrown nail (ICD-10 - L60.0) 01/04/2025 Tinea unguium (ICD-10 - B35.1) 01/04/2025 Neuropathy (ICD-10 - G62.9) 05/10/2025 Tinea unguium (ICD-10 - B35.1) 08/13/2025 Tinea unguium (ICD-10 - B35.1) 08/13/2025 Pain in right toe(s) (ICD-10 - M79.674) 05/10/2025 Pain in right toe(s) (ICD-10 - M79.674) 01/04/2025 Pain in right toe(s) (ICD-10 - M79.674) 09/07/2024 Pain in right toe(s) (ICD-10 - M79.674) 09/07/2024 Pain in left toe(s) (ICD-10 - M79.675) 01/04/2025 Pain in left toe(s) (ICD-10 - M79.675) 05/10/2025 Pain in left toe(s) (ICD-10 - M79.675) 08/13/2025 Pain in left toe(s) (ICD-10 - M79.675) 08/13/2025 Ingrown nail (ICD-10 - L60.0) 08/13/2025 Atherosclerosis of artery of both lower extremities (ICD-10 - I70.203) Q7(A), Q8(2B), Q9(1B,2C) 05/10/2025 Atherosclerosis of artery of both lower extremities (ICD-10 - I70.203) Q7(A), Q8(2B), Q9(1B,2C) 01/04/2025 Neuritis (ICD-10 - M79.2) 01/04/2025 Neurapraxia of lower extremity (ICD-10 - S84.90XA) 01/04/2025 Pain in left foot (ICD-10 - M79.672) 01/04/2025 Pain in right foot (ICD-10 - M79.671) Plan Of Treatment Pending Test Test Name Order Date 53461-SNIPFDU NAIL, 6 OR MORE 08/12/2011 54891-XDOVSDX NAIL, 6 OR MORE 11/11/2011 84869-PLWJEUU NAIL, 6 OR MORE 02/10/2012 47229-UPCVOKR NAIL, 6 OR MORE 05/16/2012 44453-TWHPNBD NAIL, 6 OR MORE 08/17/2012 56819-BVVIHTX NAIL, 6 OR MORE 11/16/2012 16193-WLRGZPW NAIL, 6 OR MORE 02/13/2013 59201-OCWOAYV NAIL, 6 OR MORE 05/17/2013 20030-KZBRBPT NAIL, 6 OR MORE 11/13/2013 20694-DUDKNGY NAIL, 6 OR MORE 02/14/2014 95618-FRDTHFU NAIL, 6 OR MORE 05/21/2014 24062-JDGRNMJ NAIL, 6 OR MORE 08/09/2013 79335-VKTOXRI NAIL, 6 OR MORE 08/27/2014 24554-LJCFEYU NAIL, 6 OR MORE 11/21/2014 47135-VQBKBTZ NAIL, 6 OR MORE 02/20/2015 27042-HBADNJA NAIL, 6 OR MORE 05/22/2015 88503-TSLRVIH NAIL, 6 OR MORE 08/26/2015 45370-IASGWGD NAIL, 6 OR MORE 11/25/2015 61633-NEKVIMA NAIL, 6 OR MORE 02/24/2016 68530-JRBJZZW NAIL, 6 OR MORE 05/25/2016 92570-FUGOLEU NAIL, 6 OR MORE 08/24/2016 43977-XUNKKOW NAIL, 6 OR MORE 11/23/2016 45654-VTKDCUR NAIL, 6 OR MORE 02/22/2017 23909-RXKXIQT NAIL, 6 OR MORE 05/27/2017 14697-RBQUSVS NAIL, 6 OR MORE 08/26/2017 18865-TGMYYZN NAIL, 6 OR MORE 11/25/2017 86183-UVPIUEU NAIL, 6 OR MORE 02/28/2018 33170-JMPAIDM NAIL, 6 OR MORE 05/30/2018 70064-YBXFMIC NAIL, 6 OR MORE 08/29/2018 60279-EADOKBJ NAIL, 6 OR MORE 11/28/2018 68480-MHCKUXE NAIL, 6 OR MORE 02/27/2019 63861-NHJCFTS NAIL, 6 OR MORE 05/29/2019 96304-JPWPHLT NAIL, 6 OR MORE 09/25/2019 93783-VKIEQUP NAIL, 6 OR MORE 12/25/2019 35687-GJLQRMO NAIL, 6 OR MORE 04/01/2020 95552-QZIKPSH NAIL, 6 OR MORE 07/08/2020 66889-LUJDRZW NAIL, 6 OR MORE 10/07/2020 45315-GHFDJIK NAIL, 6 OR MORE 02/03/2021 47897-BYYSKSC NAIL, 6 OR MORE 05/05/2021 31213-DWTMFAF NAIL, 6 OR MORE 11/24/2021 50499-EMSSJCC NAIL, 6 OR MORE 03/02/2022 38719-AZFQALH NAIL, 6 OR MORE 08/11/2021 64164-UPEJBGL NAIL, 6 OR MORE 06/04/2022 77121-ZZNRIET NAIL, 6 OR MORE 09/03/2022 91916-KCORFEJ NAIL, 6 OR MORE 12/10/2022 06226-FURFSOD NAIL, 6 OR MORE 03/08/2023 68056-IGXYCET NAIL, 6 OR MORE 06/07/2023 48900-SJPOCDL NAIL, 6 OR MORE 12/27/2023 03296-QXEFXDL NAIL, 6 OR MORE 04/06/2024 19621-NMBTPZO NAIL, 6 OR MORE 09/07/2024 04082-MHUAZQX NAIL, 6 OR MORE 01/04/2025 30560-LVEWGBB NAIL, 6 OR MORE 05/10/2025 74638-PHKIBLJ NAIL, 6 OR MORE 08/13/2025 07081-Ybsn Destruction, 1-14 11/24/2021 63734-Okyo Destruction, -14 06/07/2023 12558-Qcgn Destruction, 1-14 03/08/2023 56611-Idbi Destruction, -14 12/10/2022 72451-Tbjf Destruction, -14 09/03/2022 27553-Kjtg Destruction, -14 03/02/2022 80410-Lxdv Destruction, 1-14 06/04/2022 89042-Iylz Destruction, 1-14 08/11/2021 14731-Xcxf Destruction, -14 05/05/2021 06754-Hbca Destruction, 1-14 02/03/2021 73299-Dwum Destruction, 10-3107/08/2020 62169-Qdfm Destruction, 10-3110/07/2020 76303-Wpni Destruction, 10-3104/01/2020 41901-Blne Destruction, 10-3109/25/2019 30620-Kblm Destruction, 10-3108/26/2017 36545-Gavo Destruction, 10-3105/29/2019 29946-Usll Destruction, 10-3102/27/2019 80773-Inmh Destruction, 10-3111/28/2018 06426-Ikrs Destruction, 10-3108/29/2018 90140-Zhdp Destruction, 10-3105/30/2018 36709-Ibci Destruction, 10-3102/28/2018 95003-Lyfl Destruction, 10-3111/25/2017 88285-Ytky Destruction, 10-3105/27/2017 43256-Rrkt Destruction, 10-3111/23/2016 62705-Tsyn Destruction, 10-3108/24/2016 89149-Zlqu Destruction, 10-3105/25/2016 72293-Nseh Destruction, 10-3102/24/2016 76575-Wmgj Destruction, 10-3111/25/2015 53494-Ihnm Destruction, 10-3102/13/2013 00429-Iusa Destruction, 10-3105/17/2013 17295-Pdqf Destruction, 10-3111/16/2012 46011-Ukhy Destruction, 10-3108/17/2012 11955-Oybr Destruction, 10-3105/16/2012 03951-Rcdm Destruction, 10-3102/10/2012 22206-Edqt Destruction, 10-3111/11/2011 70210-Rhej Destruction, 10-3108/12/2011 58205-Seruowcb Plate 05/16/2012 35505-Zkkrskcn Plate 05/17/2013 52731-Wjraszrm Plate 02/13/2013 28351-Ymcapkmz Plate 02/20/2015 26328-Wlghbhtl Plate 08/27/2014 17036-Nejkbcdv Plate 05/21/2014 70210-Buduxrou Plate 02/14/2014 01557-Yvdtbvzb Plate 05/22/2015 10978-Neaoxufm Plate 11/23/2016 17745-Sqpazmry Plate 08/26/2017 82507-Esfgozvw Plate 05/29/2019 86965-Behtkbrb Plate 07/08/2020 53708-Syifcbtn Plate 05/05/2021 38252-Befbuplw Plate 12/27/2023 34014-Imyxghfr Plate 09/07/2024 54548-Gylmnfby Plate 08/13/2025 58996-Mzmpwzxe Plate Each Additional 46988-Guqnveiu Plate Each Additional 53049-Hptmxinn Plate Each Additional 01/2014 01194-Kcfghuyi Plate Each Additional 03/2015 80578- Debride <25 sq cm 08/09/2013 27575- Debride <25 sq cm 05/21/2014 48689- Debride <25 sq cm 12/25/2019 39139 I&D ABSCESS- SIMPLE,SINGLE 022 97645 I&D ABSCESS- SIMPLE,SINGLE 015 12655 I&D ABSCESS- SIMPLE,SINGLE 015 40438-IDEX SKIN LESIONS, 2 TO 4 08/13/20 25 63700-DYQD SKIN LESIONS, 2 TO 4 05/10/20 25 Next Appt Details Provider Name:Mari Chowdhury , 12/10/2025 11:15:00 AM, [address], [place], [address], Insurance Providers Payer Name Payer Address Payer Phone Subscriber Number Group Number Insured Name Patient Relationship to Insured Coverage Start Date Coverage End Date Medicare National Govt Sv[employer] [address] [facility] [address] [phone] [id number] Cande Marx Self - patient is the insured [employer] [address] [place] [address] [id number] Cande Marx Self - patient is [...] of neck 08/2024 Hospitalization History Reason Date(Month/Year) [facility] [place] [facility] [place] GI Infection 11/06/23 [facility] [place] 12/09/23-12/16/23 [facility] [place]- right knee pain couldn't walk [facility] ER- Diarrhea 06/2018
--- OUTSIDE RECORDS SUMMARY | 2025-08-29 14:04 | XMS_ITS | Clinical Summary ---
Author Organization [facility] Address [address] [facility] [address] [place] [address] Phone Care Team Providers Care Tmd Teacher Name Role Phone Jonna Dillard MD Primary [...] 1,000 Units by mouth daily. 04/06/2025 Active Social History Tobacco Use Types Packs/Day Years [...] on file Medical Devices Not on file Insurance MEDICARE PART A & B [place] [facility] & B [facility] & B [facility] MEDIC[facility] PART A & B [facility] Care Teams Tmd Teacher Relationship Specialty Start Date End Date Jonna Dillard MD [address] [place] [address] [id number] PCP - General Internal Medicine 03/27/25 Additional Source Comments The information contained in this document represents components of the legal health record. It is not the complete legal health record.[facility]
== END 2025-08-30 14:11 | disposition home or self-care (01) ==
LOC: HO.HSMS 11:19
PROVIDERS: PCP Internal Medicine; Visit Provider Nurse Practitioner Family
DX: G62.9 Polyneuropathy, unspecified (principal); Z86.73 Personal history of transient ischemic attack (TIA), and cerebral infarction without residual deficits; R20.2 Paresthesia of skin; M79.671 Pain in right foot; M79.672 Pain in left foot
CPT/HCPCS: 99214

== ENCOUNTER → 2025-08-29 11:19 | Outpatient (BNVA) | payer MEDICARE, MEDICAID, SELFPAY | PROVIDERS: PCP Internal Medicine; Visit Provider Nurse Practitioner Family | DX: R20.2 Paresthesia of skin (principal); G62.9 Polyneuropathy, unspecified; Z86.73 Personal history of transient ischemic attack (TIA), and cerebral infarction without residual deficits; M79.671 Pain in right foot; M79.672 Pain in left foot; Z79.01 Long term (current) use of anticoagulants | CPT/HCPCS: 99212 ==

== ENCOUNTER 2025-09-22 17:11 | Inpatient (IN) | payer MEDICARE, MEDICAID, SELFPAY ==
--- OUTSIDE RECORDS SUMMARY | 2024-07-17 08:00 | XMS_ITS ---
Author Organization [facility] Address [address] [place] [address] Care Team Providers Care Computer Forwarding System Markup Clerk Name Role Phone Jonna Childress Primary Care Provider Unava ilable Mari Chowdhury Unavailable [phone] Mcelroy Encounters Encounter Location Date Provider Diagnosis [address] [address] 07/17/2024 Mari Chowdhury Plan Of Treatment Next Appt Details Provider Name:Mari Chowdhury , 12/10/2025 11:15:00 AM, [address] [place] [address], [phone], Progress Notes * Cande MARXDOB:[birth year] (85 yo F)Acc No.[id number]:07/17/2024 Progress Note Patient: Cande FRANCISCO Provider: Kamari Chowdhury DPM :1940 A ge:83 Y S ex:Female Date:07/17/2024 Address:[address] [place] [phone] Pcp:Jonna Childress Subjective: * Chief Complaints: * [...] 0 07/17/2024 Generated for Autumn Mancini on: 11/23/2024 05:48 PM EST
--- OUTSIDE RECORDS SUMMARY | 2024-08-08 15:47 | XMS_ITS | Encounter Summary ---
Author Organization [facility] Address [address] [place] [address] Care Team Providers Care Pet Training Instructor Name Role Phone Jonna Nieto MD Primary Care Prov ider Encounter Details Date Type Department Care Team (Late st Contact Info) Description 08/08/2024 4:47 PM EDT Hospital Encounter TH HISTORIC ENCOUNTERS EASTERN CONVERSION ONLY Jennifer Willingham PA [address] [place] [address] Social History Tobacco Use Types Packs/Day Years [...] care for your loved ones. For example, early childhood coordinator or elderly care for an older adult? [...] 11:15 AM EDT Office Visit Adult Medicine [address] [phone] Jonna Nieto MD [address] [place] [address] 02/13/2026 9:20 AM EDT Appointment Radiology Department - [address] [phone] 09/17/2026 1:00 PM EST Office Visit Pulmonology - [address] [place] [address] Rosario Uribe, ZULEIKA [address] [place] [address] documented as of this encounter Visit Diagnoses Not on filedocumented in this encounter Care Teams Pet Training Instructor Relationship Specialty Start Date End Date Jonna Nieto MD [address] [place] [phone] PCP - General Internal Medicine 07/13/22 documented as of this encounter
--- OUTSIDE RECORDS SUMMARY | 2025-08-31 06:03 | XMS_ITS | Continuity of Care Document ---
Author Organization [facility] Address [address] [place] [address] [address] [place] [address] Phone Care Team Providers Care Grade Foreman Name Role Phone Sasha BECKER, FACS, Nitin Unavailable Unavail able Allergies, Adverse Reactions, Alerts Substance Reaction Status [...] Yes / No Effective Date File Name No Information Encounters Encounter Description Practice Location Reason(s) For Visit Diagnoses Date Provider Providers Copied on Encounter [facility], [address] [place] [address] Dr Yin [address], [place], [id number], [place] tel:[phone] [facility] No Information Sasha BECKER, FACS Nitin. [address], [place], [place], [id number], . tel:[phone] Office/Outpt E&M Established 15 Mins- CT & [place] [facility], [address] [place] [address] [facility] [address], [id number], [place] tel:[phone] [facility] Varicose veins of left lower extremity with other complication sRestless legs syndromeAthe rosclerotic heart disease of [place] coronary artery without angina pectorisCoro nary atherosclero sis due to lipid rich plaqueCerebr al infarction, unspecified 4 Mollanni Pemberton. [address] [place] [address], [id number], [place]. tel:[phone] [facility], [address] [place] [address] Dr Y[address] [address], [id number], [place] tel:[phone] [facility] Encounter for follow-up examination after completed treatment for conditions other than malignant neVaricose veins of left lower extremity with pain 4 Milton BECKER RVT, RPVI Robert. [address] [place] [address], [id number], [place]. tel:[phone] Referring Provider: Kash Rose MD, JUANA, NOAH, [address] [place] [address], [id number]. tel:[phone] [facility], [address] [place] [address] Dr [address] [place], [place] [address], [id number], [place] tel:[phone] [facility] Encounter for follow-up examination after completed treatment for conditions other than malignant neVaricose veins of left lower extremity with pain 4 Milton BECKER RVT, RPVI Robert. [address] [place] [address], [id number], [place]. tel:[phone] Referring Provider: Kash Rose MD, RVT, NOAH, [address] [place] [address], [id number]. 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 [address] [place] [address], [id number], [place]. tel:[phone] Referring Provider: Kash Rose MD, RVT, NOAH, [address] [place] [address], [id number]. tel:[phone] Offic/outpt E&m Estab 5 Min Trial- Telemedicine CT & [place] [facility] [address] Yin [address] [address], [id number], [place] tel:[phone] [facility] - [facility] Venous insufficienc y (chronic) (peripheral) Restless legs syndromeAthe rosclerotic heart disease of [place] coronary artery without angina pectorisCoro nary atherosclero sis due to lipid rich plaqueCerebr al infarction, unspecified 4 Hyun Ortega. [address] [place] [address], [id number], [place]. tel:[phone] Referring Provider: Jonna Soto MD [facility], [address] [place] [address], [address]. tel:[phone] Office/Oupt E&M New Pt 30 Mins- CT & [place] [facility] [address] Yin [address] [address], [id number], [place] tel:[phone] [facility] Pruritus, unspecifiedV aricose veins of left lower extremity with other complication Jerald in right lower legPain in left lower legRestless legs syndromeEsse ntial (primary) hypertension Atherosclero tic heart disease of [place] coronary artery without angina pectorisCoro nary atherosclero sis due to lipid rich plaqueCerebr al infarction, unspecified 4 Milton BECKER, JUANA, NOAH Hewitt. [address] [place] [address], [id number], [place]. tel:[phone] Referring Provider: Jonna Soto MD Meka, [address] [place] [address], [id number]. tel:[phone] [facility], [address] [facility] [address], [place], [id number], [place] tel:[phone] [facility] - [facility] Chronic venous hypertension (idiopathic) with other complication s of bilateral lower extremity Milotn BECKER, RVT, RPVI Kash. [address] [facility], [address], [place], [place], [id number], [place]. tel:[phone] Referring Provider: Jonna Soto MD Meka, [address] [place] [address], [id number]. tel:[phone] Family History Family Member Type Diagnosis Age At Onset No Information Payers Payer name Insurance type Covered alliance party ID Authoriza tion(s) Medicare NEYDA [id number] BCBS [facility] [id number] Medical Assistance [facility] [id number] Social History Type Description Quantity Date Captured Comments Sex Female Smoking Status No Information Chief Complaint And Reason For Visit No [...] Information Instructions Date Instruction Additional Infor mation Patient education booklet given Related to Varicose [...]
--- OUTSIDE RECORDS SUMMARY | 2025-09-17 13:50 | XMS_ITS | Encounter Summary ---
Author Organization [facility] Address [address] [place] [address] Care Team Providers Care Handling Tech Name Role Phone Jonna Nieto MD Primary Care Prov ider Reason for Referral * Imaging (Routine) - Authorized Specialty Diagnoses / Procedures Referred By Sulma argueta Referred To Contact Radiology Diagnoses Lung nodules Procedures CT Chest wo Contrast Rosario Uribe NP [address] [place] [address] Phone: tel: fax: [address] [phone] Phone: tel: Referral ID Status Reason Start Date Expiration Date V isits Requested Visits Authorized [id number] Authorized 09/17/2025 09/17/2026 1 1 Reason for Visit * Reason Comments Shortness of Breath Wheezing Lung Nodule Encounter Details Date Type Department Care Team ([facility] Contact Info) Description 09/17/2025 1:50 PM EST Office Visit Pulmonology - [address] [place] [address] Rosario Uribe NP [address] [place] [address] Lung nodules (Primary Dx); Recurrent infections; Longstanding persistent atrial fibrillation (CMS/HCC V24, CMS/HCC V28); Obesity (BMI 30.0-34.9) Social History Tobacco Use Types Packs/Day Years [...] your loved ones. For example, child care development specialist or elderly care for an older [...] on file documented as of this encounter Last Filed Vital Signs Vital Sign Reading Time Taken Comments Blood Pressure 147/81 09/17/2025 1:31 PM EST Pulse 70 09/17/2025 1:31 PM EST Temperature 36.4 C (97.5 F) 09/17/2025 1:31 PM EST Respiratory Rate 15 09/17/2025 1:31 PM EST Oxygen Saturation 98% 09/17/2025 1:31 PM EST Inhaled Oxygen Concentration - - Weight 78.9 kg (174 lb) 09/17/2025 1:31 PM EST Height 160 cm (5' 3 ) 09/17/2025 1:31 PM EST Body Mass Index 30.82 09/17/2025 1:31 PM EST documented in this encounter Progress Notes * Rosario Uribe, ZULEIKA - 09/17/2025 1:50 PM EST ADULT PULMONARY MEDICINE FOLLOW UP CHIEF COMPLAINT or REASON FOR CONSULTATION: Shortness of Breath, Wheezing, and Lung Nodule INITIAL VISIT AT THIS PULMONARY CLINIC 02/16/2025 See note for further details. IDENTIFIER Cande Marx is a 85 y.o. years old, female History of Present Illness The patient is an 85-year-old female who presents for evaluation of reevaluation of lung nodules. She reports no recent episodes of syncope, with all previous evaluations yielding normal results. She has not experienced any instances of pneumonia or bronchitis in the past few months. No need for hospitalizations or prednisone use due to breathing. She denies any respiratory symptoms at this time. She continues her regimen of Eliquis for atrial fibrillation and is aware of the potential bleedingrisk associated with this medication. She has been using Flonase for nasal congestion but reports no significant improvement. She states has stuffy nose and occasional clearing throat but no cough. ALLERGIES: Allergies Allergen Reactions Terbinafine Other Reaction(s): Rash/Dermatitis Acetaminophen-Codeine Codeine Intolerance, burping, esophageal irritation Penicillin G Procaine Hives ACTIVE MEDICATIONS: Outpatient Medications Marked as Taking for the 09/17/25 encounter (Office Visit) with Rosario Uribe NP Medication Sig Dispense Refill acetaminophen (TYLENOL) 500 mg tablet Take 2 Tabs by mouth 3 times daily as needed. amLODIPine (NORVASC) 2.5 mg tablet Take 1 tablet (2.5 mg total) by mouth 1 (one) time each day. 90 tablet 1 cholecalciferol, vitD3,/vit K2 (vitamin D3-vitamin K2) 125-90 mcg capsule Take 1 capsule by mouth 1(one) time each day. clotrimazole-betamethasone (LOTRISONE) 1-0.05 % cream 1 APPLICATION EXTERNALLY TWICE A DAY 30 DAYS cranberry fruit 450 mg tablet as directed Orally Eliquis 5 mg tablet TAKE 1 TABLET BY MOUTH 2 TIMES DAILY EVERY 12 HOURS 180 tablet 1 ferrous sulfate 325 mg (65 mg iron) EC tablet TAKE 1 TABLET BY MOUTH 1 TIME EACH DAY WITH BREAKFAST. 90 tablet 0 gabapentin (NEURONTIN) 100 mg capsule TAKE 1 -3 CAPS ORALLY BEDTIME FOR 30 DAYS ketoconazole (NIZORAL) 2 % cream APPLY TO RASH ON TRUNK TWICE A DAY UNTIL RESOLVED, AND NEEDED FLARES Lactobacillus acidophilus (PROBIOTIC ORAL) Take by mouth. loperamide (IMODIUM) 2 mg capsule Take 1 Capsule by mouth 4 times daily as needed for Diarrhea. losartan (COZAAR) 50 mg tablet TAKE 1 TABLET BY MOUTH EVERY DAY (NEED MED D CARD) 90 tablet 1 metoprolol tartrate (LOPRESSOR) 50 mg tablet Take 1 tablet (50 mg total) by mouth 2 (two) times a day. 90 tablet 1 nystatin (MYCOSTATIN) 100,000 unit/gram powder Apply 1 Application topically if needed for rash. pantoprazole (PROTONIX) 40 mg EC tablet TAKE 1 TABLET BY MOUTH EVERY DAY 90 tablet 0 PROVIDER ATTESTS THAT THE MEDICATION LIST WAS OBTAINED, REVIEWED AND UPDATED. REVIEW OF SYSTEMS: GENERAL: Negative for malaise, fever, chills, night sweats, unexpected weight changes, and fatigue. HEENT: No changes in hearing or vision, no nose bleeds or nasal congestion or runny nose, sneezing,itchiness, clearing throat, and lump in the throat, snoring, and dry mouth. NECK: Negative for lumps, goiter, pain and significant neck swelling RESPIRATORY: see HPI CARDIOVASCULAR: No chest pain or leg swelling or palpitations or orthopnea or paroxysmal night dyspnea.+Afib GI: No abdominal discomfort, blood in stools or black stools, +diarrhea and +acid reflex : No dysuria, frequency, urgency, +incontinence and nocturia MUSCULOSKELETAL: + joint pain or swelling, back pain, or muscle pain. SKIN: No lesions, rash or itching PSYCH: No sleep disturbance, anxiety, depression, claustrophobia or SI/HI. HEMATOLOGY/LYMPHOLOGY No prolonged bleeding, easy bruisability or swollen nodes ENDOCRINE: No cold or heat intolerance, polyuria, polydipsia or goiter. NEURO: No persistent headache, syncope, seizures, + L sided weakness and bilateral peripheral neuropathy Remainder of the review of systems is noncontributory PAST MEDICAL HISTORY: Patient Active Problem List Diagnosis Date Noted Overweight (BMI 25.0-29.9) 02/21/2025 Pneumonia 12/07/2024 Hemiplegia and hemiparesis following cerebral infarction affecting right dominant side ([facility] V24, [facility] V28) 12/07/2024 History of falling 12/07/2024 Personal history of urinary (tract) infections 12/07/2024 Personal history of malignant melanoma of skin 12/07/2024 alf (current) use of anticoagulants 12/07/2024 Unspecified mood (affective) disorder ([facility] V24) 12/07/2024 Gastroesophageal reflux disease without esophagitis 12/07/2024 Right thyroid nodule 11/16/2024 Breast calcification, right 11/16/2024 Gross hematuria 11/01/2024 A-fib ([facility] V24, [facility] V28) 11/24/2023 Venous insufficiency (chronic) (peripheral) 09/04/2022 Prediabetes 01/02/2022 Collagenous colitis 12/28/2018 Intermittent diarrhea 09/21/2018 Benign essential hypertension 01/04/2017 Low back pain radiating to left leg 01/23/2014 Osteoarthritis of hip 01/23/2014 Hypercholesterolemia 01/12/2012 Hemorrhoids 02/26/2010 Past Surgical History: Procedure Laterality Date APPENDECTOMY 1964 PROCEDURE: ND APPENDECTOMY BREAST LUMPECTOMY Left cyst rwemoved long time ago BREAST SURGERY PROCEDURE: ND UNLISTED PROCEDURE BREAST; COMMENT: lt. cyst removed... CHOLECYSTECTOMY 1968 PROCEDURE: ND LAPAROSCOPY SURG CHOLECYSTECTOMY COLONOSCOPY 04/02/2010 PROCEDURE: HISTORICAL COLONOSCOPY; COMMENT: adenoma and hemorrhoids and diverticulosis; repeat in five years COLONOSCOPY 06/13/2015 PROCEDURE: HISTORICAL COLONOSCOPY; COMMENT: tics; would not repeat COLONOSCOPY 06/18/2019 PROCEDURE: HISTORICAL COLONOSCOPY FINE NEEDLE ASPIRATION PROCEDURE: FINE NDLE ASPRTN W/IMAGING GUIDANCE; COMMENT: lt. 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 Some secondary hand smoke(10 years) ALCOHOL: occasionally. DRUGS: none. OCCUPATION OR OCCUPATION EXPOSURE: [employer] LUNGS FAMILY HISTORY: uncle lung cancer. IMMUNIZATION: never Influenza Vaccine 2016 Pneumococcal 13 2008 Pneumococcal 23 2020 COVID x 2 PULMONARY HOSPITALIZATION Hx: At: [facility] [place] Dates:11/02-11/04/2024 Reason: PNA At: [facility] [place] Dates: Reason: PNA Visit Vitals BP (!) 147/81 Pulse 70 Temp 36.4 ??C (97.5 ??F) (Temporal) Resp 15 Ht 1.6 m (63 ) Wt 78.9 kg (174 lb) SpO2 98% BMI 30.82 kg/m?? OB Status Oopherectomy Smoking Status Never BSA 1.82 m?? Physical Exam General Appearance: Obese(30.82). Alert and in no acute distress. Speaks in full sentences. No stridor. Eyes: Conjunctiva and sclera normal. Nose/Sinus: Nares normal. Septum midline. Mucosa pink with no drainage or sinus tenderness. Mouth/Throat: Moist, pink without lesions, excudates or erythema, Mallampati class III. Neck: Neck supple with normal circumference, thyroid symmetric and trachea midline Respiratory: Vesicular sounds adequate bilaterally without wheezes, crackles, rhonchi, rales or rubs. Normal chest expansion and tactile fremitus. Cardiovascular: Irregular rhythm with normal rate, no murmurs or abnormal sounds. Gastrointestinal: Bowel sounds normoactive, soft, non-tender. Lymphatic: No cervical and supra-clavicular lymphadenopathy. Extremities: No swelling noted in the legs. Skin: Warm and dry, no rash. Neurological: Awake, alert and oriented x 3, no focalization. DIAGNOSTIC DATA: Peripheral oxygen saturation or SpO2 on RA today is 99%. CARDIOPULMONARY TEST: Last Pulmonary function Test showed: Not obtained. RADIOLOGIST IMAGING: CT CHEST WO CONTRAST Result Date: 07/16/2025 HISTORY: Lung nodule, > 8mm Patient had CT at [facility] [place] in 11/2024 which showed lung nodules with largest 9mm on REX. TECHNIQUE: Chest CT was performed utilizing contiguous noncontrasted axial images from the thoracicinlet to below the diaphragm. The images were [...] image 165). Stable 0.9 cm groundglass nodule withinthe left upper lobe (series 2, image 103) [...] Moderate degenerative changes of the thoracic spine. IMPRESSION: 1. Stable 0.9 cm groundglass nodule within the left upper lobe. This is stable from the 11/02/[address] chest in one year 2. Multiple solid nodules measuring up to 4 mm. 3. Faint groundglass attenuation within the peripheral left upper lobe and medial posterior right lower lobe. Findings may represent infectious or inflammatory etiology. CT CHEST WO CONTRAST Result Date:12/08/2024 COMPARISON: Chest CT on November 06, 2024 and November 02, 2024 HISTORY: Abnormal chest [facility] 11/02/2024. 4-week follow-up on acute inflammatoryversus infectious processes involving lingula, right middle lobe and lower lung lobes. Subcentimeter pulmonary nodules. Prominent mediastinal lymph nodes. FINDINGS: Respiratory motion present. Lungs: Respiratory motion limits evaluation of the central airways and small pulmonary nodules. No focal consolidation. Interval improvement of subsegmental atelectasis in the lingula region. Linear scarring in the left lower lobe. Groundglass nodule measuring approximately 0.9 cm in the anteromedial aspect of the left upper lobe (2:85) appears similar to prior studies. Additional solid pulmonarynodules, for example 0.6 cm in the right middle lobe (2:134) and 0.4 cm in the right middle lobe (2:135) are also unchanged. Right lower lobe 0.2 cm nodule (2:144) is difficult to see on the prior studies degraded by motion. Confluent tree-in-bud nodularity in the posterolateral aspect of the rightmiddle lobe (2:150) appears new from prior study. Pleura: Interval resolution of previously seen pleural effusions. No pneumothorax. Mediastinum: Unchanged right thyroid nodule (3:37). Mild cardiomegaly. No pericardial effusion. Scattered calcifications along the nonaneurysmal thoracic aorta. Lymph Nodes: No bulky adenopathy. Upper Abdomen: Vascular calcifications. Chest Wall: No concerning findings. Bones: No acute or suspicious bony findings. IMPRESSION: 1. Direct comparison of the lung findings is difficult due to motion on the prior studies. Overall improvement of the lung aeration. No lung consolidations. Focal area of tree-in-bud nodularity in the right middle lobe, new from previous examination, likely represents area of inflammatory/infectious process. Larger pulmonary nodules are unchanged. 2. Interval resolution of pleural effusions. 3. No bulky adenopathy. ASSESSMENT: 1. Lung nodules 2. Recurrent infections 3. Longstanding persistent atrial fibrillation (CMS/HCC V24, CMS/HCC V28) 4. Obesity (BMI 30.0-34.9) Assessment & Plan 1. Lung nodules with largest 9 mm ground glass opacity: Stable. - Repeat CT scan scheduled for 06/2026. - Contact the office immediately if symptoms such as coughing with or without sputum, wheezing, or pneumonia occur. 2. Nasal congestion. - Discontinue Flonase. - Utilize normal saline gel for symptom management. 3. Atrial fibrillation. - Continue Eliquis for abnormal heart rate. - Monitor for signs of bleeding, including blood in urine or stools, and report immediately. - The patient was educated about respiratory problems, where assessment and plan was reviewed and explained, some educational material about his pulmonary problems was given with the discharge summary. All questions were answered.The above assessment and plan was discussed with Leigh Ann Harris MD ( ). Diagnostic testing results were available for review during the discussion. Based on physical exam, symptomatology, tests requested and baseline pulmonary evaluation/disease, I instructed the patient to follow-up with in 12 months and as needed in the interim if other concerns/worsening symptoms. - Follow up with Jonna Soto MD for the other co-morbidities. Thanks Jonna Soto MD for allowing me to have the opportunity to assist in the careof this patient. I have obtained verbal consent from Cande Marx prior to the recording. I have advised Cande Marx that she may refuse the recording and require the recording to be turned off at any timeduring this encounter. documented in this encounter Plan of Treatment Upcoming Encounters Date Type Department Care Team (Late st Contact Info) Description 01/25/2026 11:15 AM EDT Office Visit Adult Medicine East - [address] [phone] Jonna Nieto MD [address] [place] [address] 02/13/2026 9:20 AM EDT Appointment Radiology Department - [address] [phone] 09/17/2026 1:00 PM EST Office Visit Pulmonology - [address] [place] [address] Rosario Uribe, EXECUTIVE DIRECTOR OF MARKETING [address] [place] [id number] Scheduled Orders Name Type Priority Associated Diagnoses Orde r Schedule CT Chest wo Contrast Imaging Routine Lung nodules Expected: 07/17/2026, Expires: 09/17/2026 documented as of this encounter Visit Diagnoses Diagnosis Lung nodules- Primary Other diseases of lung, not elsewhere classified Recurrent infections Unspecified infectious and parasitic diseases Longstanding persistent atrial fibrillation ([facility] V24, [facility] V28) Obesity (BMI 30.0-34.9) documented in this encounter Additional Health Concerns Assessment Noted Time PHQ-9 Depression Total Score: 5 07/24/20 25 11:40 AM EDT A fall risk assessment has been complete d for the patient 07/24/2025 11:37 AM EDT documented as of this encounter Care Teams Handling Tech Relationship Specialty Start Date End Date Jonna Nieto MD [address] [place] [address] PCP - General Internal Medicine 07/13/22 documented as of this encounter
--- OUTSIDE RECORDS SUMMARY | 2025-09-21 09:30 | XMS_ITS | Encounter Summary ---
Author Organization [employer] Address [address] [place] [address] Care Team Providers Care Home Lighting Adviser Name Role Phone Jonna Nieto MD Primary Care Prov ider Reason for Visit * Reason Comments UTI Encounter Details Date Type Department Care Team (Late st Contact Info) Description 09/21/2025 9:30 AM EST Office Visit Adult Medicine [address] [phone] Lucas Rahman MD [address] [place] [address] Urinary tract infection without hematuria, site unspecified (Primary Dx) Social History Tobacco Use Types Packs/Day Years [...] Sign Reading Time Taken Comments Blood Pressure 161/98 09/21/2025 9:27 AM EST PROVIDER WILL RECHECK Pulse 65 09/21/2025 9:27 AM EST Temperature 36.5 C (97.7 F) 09/21/2025 9:27 AM EST Respiratory Rate - - Oxygen Saturation - - Inhaled Oxygen Concentration - - Weight - - Height 160 cm (5' 3 ) 09/21/2025 9:27 AM EST Body Mass Index - - documented in this encounter Ordered Prescriptions Prescription Sig Dispense Quantity Refills Last Filled Start Date End Date nitrofurantoin, macrocrystal-monoh ydrate, (MACROBID) 100 mg capsule Take 1 capsule (100 mg total) by mouth 2 (two) times a day for 5 days. 10 each 09/21/2025 documented in this encounter Progress Notes * Lucas Rahman MD - 09/21/2025 9:30 AM EST CHIEF COMPLAINT: UTI IDENTIFIER: Cande Marx is a 85 y.o. old female. HPI: 85-year-old female patient with a past medical history of hypertension, chronic A-fib, recurrent UTI, who is seen here for sick visit. She is on cranberry supplementation for recurrent UTIs. She usesdiapers for urinary incontinence. Her last couple of days she has increased urinary frequency and cloudy urine. No history of fever. Her p.o. intake is normal. No change in mental status. Urine dipstick test is positive for UTI. I will send urine sample for urine microscopic exam and urine culture.For now I will start her on Macrobid 100 mg twice a day for 5 days. I recommend her to drink plentyof water. ROS: GENERAL: No malaise, significant weight loss or fever HEENT: No changes in hearing or vision, nose bleeds or other nasal problems NECK: No lumps RESPIRATORY: No cough, wheezing or shortness of breath CARDIOVASCULAR: No chest pain, or palpitations GI: No abdominal pain, hematochezia, melena : Urinary frequency and cloudy urine MUSCULOSKELETAL: No joint pain or swelling, back pain, or muscle pain. SKIN: No lesions, rash or itching NEURO: No persistent headache, syncope, seizures, weakness or numbness PAST MEDICAL HISTORY: Patient Active Problem List Diagnosis Date Noted Overweight (BMI 25.0-29.9) 02/21/2025 Pneumonia 12/07/2024 Hemiplegia and hemiparesis following cerebral infarction affecting right dominant side ([facility] V24, [facility] V28) 12/07/2024 History of falling 12/07/2024 Personal history of urinary (tract) infections 12/07/2024 Personal history of malignant melanoma of skin 12/07/2024 long-term (current) use of anticoagulants 12/07/2024 Unspecified mood (affective) disorder ([facility] V24) 12/07/2024 Gastroesophageal reflux disease without esophagitis 12/07/2024 Right thyroid nodule 11/16/2024 Breast calcification, right 11/16/2024 Gross hematuria 11/01/2024 A-fib ([facility] V24, [facility] V28) 11/24/2023 Venous insufficiency (chronic) (peripheral) 09/04/2022 Prediabetes 01/02/2022 Collagenous colitis 12/28/2018 Intermittent diarrhea 09/21/2018 Benign essential hypertension 01/04/2017 Low back pain radiating to left leg 01/23/2014 Osteoarthritis of hip 01/23/2014 Hypercholesterolemia 01/12/2012 Hemorrhoids 02/26/2010 Surgical History[1] SOCIAL HISTORY: Social History Tobacco Use Smoking status: Never Smokeless tobacco: Never Substance Use Topics Alcohol use: Yes FAMILY HISTORY: Family History[2] Family Status Relation Name Status Father throat cancer Mother lip cancer, CKD Neg Hx (Not Specified) No partnership data on file MEDICATIONS DISCONTINUED/REORDERED: There are no discontinued medications. ACTIVE MEDICATIONS: Medications Taking[3] ALLERGIES: Current Allergies[4] PHYSICAL EXAM: Visit Vitals BP (!) 161/98 Comment: PROVIDER WILL RECHECK Pulse 65 Temp 36.5 ??C (97.7 ??F) (Temporal) Ht 1.6 m (63 ) BMI 30.82 kg/m?? OB Status Oopherectomy Smoking Status Never BSA 1.82 m?? Physical Exam APPEARANCE: Alert and in no acute distress EYES: PERRLA, conjunctiva and sclera normal. EARS: External ears normal. NOSE/SINUS: Nares normal. MOUTH/THROAT: no erythema or exudates HEART: RRR with normal S1 and S2, no murmurs LUNG: clear to auscultation, no wheezing ABDOMEN: Bowel sounds normoactive, soft, non-tender and no palpable masses. : Cloudy urine BACK: No pain to palpation EXTREMITIES: No edema NEURO: Awake, alert and oriented x 3. No focal neurological deficits SKIN: No rashes LABS: @CBC@ Lab Results Component Value Date NA 138 02/21/2025 K 3.9 02/21/2025 CL 106 02/21/2025 CO2 25 02/21/2025 GLUCOSE 93 02/21/2025 BUN 24 02/21/2025 CREATININE 0.92 02/21/2025 CALCIUM 9.6 02/21/2025 PROT 7.7 10/25/2024 ALBUMIN 4.2 10/25/2024 BILITOT 0.5 10/25/2024 AST 26 10/25/2024 ALT 25 10/25/2024 ALKPHOS 111 10/25/2024 EGFR 62 02/21/2025 Lab Results Component Value Date HGBA1C 5.0 09/19/2024 No results found for: TSH Lab Results Component Value Date CHOL 228 (H) 09/19/2024 TRIG 200 (H) 09/19/2024 HDL 50 09/19/2024 LDL 138 (A) 09/19/2024 VLDL 40 09/19/2024 NONHDLC 178 (H) 09/19/2024 CHOLHDL 4.6 (H) 09/19/2024 IMPRESSION: 1. Urinary tract infection without hematuria, site unspecified PLAN: She is on cranberry supplementation for recurrent UTIs. She uses diapers for urinary incontinence. Her last couple of days she has increased urinary frequency and cloudy urine. No history of fever. Her p.o. intake is normal. No change in mental status. Urine dipstick test is positive for UTI. I will send urine sample for urine microscopic exam and urine culture. For now I will start her on Macrobid 100 mg twice a day for 5 days. I recommend her to drink plenty of water. Follow-up exam as needed All questions and concerns were addressed. Cande Marx verbalizes understanding and agrees with this treatment plan. Patient was reminded to call or return to the office if any new or existing problems arise. Orders Placed This Encounter Procedures Urinalysis with reflex microscopic and culture POC Urine Auto W/O Micro None Lucas Rahman MD on 09/21/2025 at 9:54 AM EST Today's documentation was made using voice recognition software.This note may contain grammatical errors secondary to this software. [1] Past Surgical History: Procedure Laterality Date APPENDECTOMY 1964 PROCEDURE: NC APPENDECTOMY BREAST LUMPECTOMY Left cyst rwemoved long time ago BREAST SURGERY PROCEDURE: NC UNLISTED PROCEDURE BREAST; COMMENT: lt. cyst removed... CHOLECYSTECTOMY 1968 PROCEDURE: NC LAPAROSCOPY SURG CHOLECYSTECTOMY COLONOSCOPY 04/02/2010 PROCEDURE: HISTORICAL [...] COMMENT: EVLT phlebectomy, Dr Beltran SALPINGOOPHORECTOMY PROCEDURE: NC LAPAROSCOPY W/RMVL ADNEXAL STRUCTURES; COMMENT: cyst removed [2] Family History Problem Relation Name Age of Onset Other cancer Father throat Other Dermatological Disorders Mother cancer on lower lip that spread to lymph nodes .... ? due to smoking Breast cancer Neg Hx [3] Outpatient Medications Marked as Taking for the 09/21/25 encounter (Office Visit) with Lucas Rahman MD Medication Sig Dispense Refill acetaminophen (TYLENOL) 500 [...] BY MOUTH EVERY DAY 90 tablet 0 [4] Allergies Allergen Reactions Terbinafine Other Reaction(s): Rash/Dermatitis Acetaminophen-Codeine Codeine Intolerance, burping, esophageal irritation Penicillin G Procaine Hives documented in this encounter Plan of Treatment Upcoming Encounters Date Type Department Care Team (Late st Contact Info) Description 01/25/2026 11:15 AM EDT Office Visit Adult Medicine [facility] - [address] [phone] Jonna Nieto MD [address] [place] [address] 02/13/2026 9:20 AM EDT Appointment Radiology Department - [address] [phone] 09/17/2026 1:00 PM EST Office Visit Pulmonology - [place] [address] [facility] [address] [place] [id number] Rosario Uribe NP [address] [place] [address] Pending Results Name Type Priority Associated Diagnoses Date /Time Culture urine Microbiology Routine Urinary tract infection without hematuria, site unspecified 09/21/2025 10:16 AM EST documented as of this encounter Procedures Procedure Name Priority Date/Time Associated Diagnosis Comments URINALYSIS WITH REFLEX MICROSCOPIC AND CULTURE Routine 09/21/2025 10:16 AM EST Urinary tract infection without hematuria, site unspecified MCDOWELL URINE CULTURE TUBE Routine 09/21/2025 10:16 AM EST Urinary tract infection without hematuria, site unspecified URINALYSIS WITH REFLEX MICROSCOPIC AND CULTURE Routine 09/21/2025 10:16 AM EST Urinary tract infection without hematuria, site unspecified CULTURE URINE Routine 09/21/2025 10:16 AM EST Urinary tract infection without hematuria, site unspecified POC URINE AUTO W/O MICRO Routine 09/21/2025 9:46 AM EST Urinary tract infection without hematuria, site unspecified documented in this encounter Results * Mcdowell urine culture tube (09/21/2025 10:16 AM EST) Extra Tube Hold for add-ons. 09/21/2025 3:01 PM EST [facility] Comment:Auto resulted. Urine Urine specimen obtained by clean catch procedure / Unknown Non-blood Collection / Unknown 09/21/2025 10:16 AM EST 09/21/2025 10:16 AM EST us Lucas Rahman MD LAB URINE ORDERABLES Final Result [facility] [address] [place] [address], * (ABNORMAL) Urinalysis with reflex microscopic and culture (09/21/2025 10:16 AM EST) Specific Latta Urine 1.011 1.003 - 1.030 LAB URINALYSIS - AUTOMATED METHOD 09/21/2025 4:[address] [facility] pH, Urine 6.5 5.0 - 8.0 pH LAB URINALYSIS - AUTOMATED METHOD 09/21/2025 4:[address] [facility] Leukocytes, Urine Large(A) Negative LAB URINALYSIS - AUTOMATED METHOD 09/21/2025 4:[address] [facility] Nitrite, Urine Negative Negative LAB URINALYSIS - AUTOMATED METHOD 09/21/2025 4:[address] [facility] Protein, Urine 30(A) <=Trace mg/dL LAB URINALYSIS - AUTOMATED METHOD 09/21/2025 4:[address] [facility] Glucose, Urine Negative Negative mg/dL LAB URINALYSIS - AUTOMATED METHOD 09/21/2025 4:[address] [facility] Ketones, Urine Negative Negative mg/dL LAB URINALYSIS - AUTOMATED METHOD 09/21/2025 4:[address] [facility] Urobilinogen, Urine 0.2 0.2 - 1.0 mg/dL LAB URINALYSIS - AUTOMATED METHOD 09/21/2025 4:[address] [facility] Bilirubin, Urine Negative Negative LAB URINALYSIS - AUTOMATED METHOD 09/21/2025 4:[address] [facility] Blood, Urine Large(A) Negative LAB URINALYSIS - AUTOMATED METHOD 09/21/2025 4:[address] [facility] RBC, Urine >100(H) 0 - 4 /HPF 09/21/2025 4:[address] [facility] WBC, Urine >100(H) 0 - 4 /HPF 09/21/2025 4:[address] [facility] Squamous Epithelial, Urine 10 0 - 60 /LPF 09/21/2025 4:18 PM EST [facility] Bacteria, Urine Many(A) Negative /HPF 09/21/2025 4:18 PM EST [facility] Hyaline Casts, Urine 0 0 - 3 /LPF 09/21/2025 4:18 PM EST [facility] Urine Urine specimen obtained by clean catch procedure / Unknown Non-blood Collection / Unknown 09/21/2025 10:16 AM EST 09/21/2025 10:16 AM EST Lucas Rahman MD LAB URINE ORDERABLES Final Result [facility] [address] [place] [address], [place] [phone] * (ABNORMAL) POC Urine Auto W/O Micro (09/21/2025 9:46 AM EST) Leukocytes UA POC Positive(A) Negative Nitrite UA POC Positive(A) Negative Urobilinogen UA POC Negative Negative Protein UA POC Positive(A) Negative PH UA POC 6.5 5.0 - 9.0 Blood UA POC Positive(A) Negative, Trace Specific Latta UA POC 1.020 1.001 - 1.035 Ketones UA POC 1+(A) Negative Bilirubin UA POC Positive(A) Negative Glucose UA POC Normal Normal, Trace Color UA POC Red Urine Urine specimen obtained by clean catch procedure / Unknown 09/21/2025 9:46 AM EST us Lucas Rahman MD POINT OF CARE TEST ENTER/ED IT ORDERABLES Final Result documented in this encounter Visit Diagnoses Diagnosis Urinary tract infection without hematuria, site unspecified- Primary documented in this encounter Additional Health Concerns Assessment Noted Time PHQ-9 Depression Total Score: 5 07/24/20 25 11:40 AM EDT A fall risk assessment has been complete d for the patient 07/24/2025 11:37 AM EDT documented as of this encounter Care Teams Home Lighting Adviser Relationship Specialty Start Date End Date Rangel-Soto, Jonna Meka, MD [address] [place] [phone] PCP - General Internal Medicine 07/13/22 documented as of this encounter
--- NOTE | ~2025-09-22 | CT_ITS ---
CLINICAL HISTORY: abd pain N V CT abdomen and pelvis with contrast Comparison: CT - CT ABDOMEN PELVIS W IV CON - 09/22/25 19:47 EST Findings: Lung bases are clear. No pleural effusion. Moderate cardiomegaly. Spleen, adrenal glands, pancreas and left kidney are unremarkable. Fatty infiltration of the liver is present. Right kidney is mildly enlarged and there is mild right hydronephrosis. In the proximal right ureter there appears to be a 5 mm stone, however there is motion artifact in this area which partially obscures the ureter. Distal right ureter is decompressed. There is also a nonobstructing 15 x 8 mm stone in the lower pole of the right kidney. No bowel obstruction, pneumoperitoneum, or pneumatosis. Uterus, adnexa and urinary bladder unremarkable. Appendix not visualized and may be absent. The bones are intact. Moderate degenerative changes of the left hip. No lytic or blastic bone lesions. No acute fracture deformity. IMPRESSION: 5 mm stone in the proximal right ureter resulting in mild right hydronephrosis. Nonobstructing 15 x 8 mm stone in the lower pole of the right kidney. This document has been electronically signed by: Merrick Moses MD on 09/22/2025 21:14:53
--- NOTE | ~2025-09-22 | XR_ITS ---
CLINICAL HISTORY: cp 1 view chest x-ray Comparison: CR/SR - XR CHEST 1V - 03/02/25 11:08 EDT Findings: Left basilar/retrocardiac airspace opacity. Stable mild cardiomegaly. No acute fracture. IMPRESSION: 1. Left basilar/retrocardiac airspace opacity, may represent atelectasis versus pneumonia. This document has been electronically signed by: Lovely Bird MD on 09/22/2025 18:53:29
--- NOTE | ~2025-09-22 | CT_ITS ---
CLINICAL HISTORY: syncope on thinner CT head without contrast Comparison: CT/IL/SR - CT HEAD WITHOUT IV CONTRAST - 01/09/25 11:58 EDT Findings: No intracranial hemorrhage, mass effect or midline shift. There is encephalomalacia in the left MCA territory, with ex vacuo dilatation of the left lateral ventricle. This finding is consistent with old left MCA stroke. Minimal atrophy of the right cerebral hemisphere. There is no sinus or mastoid fluid. The orbits are unremarkable. No skull fracture. IMPRESSION: 1. No acute intracranial findings. This document has been electronically signed by: Merrick Moses MD on 09/22/2025 21:05:22
--- NOTE | ~2025-09-22 | FL_ITS ---
EXAMINATION: FL GUIDANCE ONLY HISTORY: cytoscopy ureteroscopy with stent placement right COMPARISON: Correlation is made with a CT of the abdomen with contrast dated 09/22/2025. TECHNIQUE: Fluoroscopy time: 6.7 seconds. Cumulative Dose: 2.7095 mGy. DAP: 1.1786 Gycm2 Images: 6. FINDINGS: Images from a right retrograde ureterogram demonstrate a normal caliber ureter. No filling defects are identified. The final images demonstrate a nephroureteral stent in place. FL/FL guidance in OR IMPRESSION: Fluoroscopy during procedure. Please see procedure report for additional information. Electronically signed by: Kash Gates MD 09/25/2025 06:57 AM AIDA
[2025-09-22 17:27] VITALS: BP 137/68; BP 148/70; PULSE 78; PULSE 80; RESP 12; TEMP 36.8; O2SAT 94; BMI 28.2
--- OUTSIDE RECORDS SUMMARY | 2025-09-22 17:49 | XMS_ITS | Encounter Summary ---
Author Organization [facility] Address [address] [place] [address] Care Team Providers Care Operations Administrator Name Role Phone Jonna Nieto MD Primary Care Prov ider Encounter Details Date Type Department Care Team (Late st Contact Info) Description 07/19/2025 Results Follow-Up [address] [phone] Jonna Nieto MD [address] [place] [address] Social History Tobacco Use Types Packs/Day Years [...] for your loved ones. For example, director child abuse therapy or elderly care for an older adult? [...] 11:15 AM EDT Office Visit Adult Medicine [address] [phone] Jonna Nieto MD [address] [place] [phone] 02/13/2026 9:20 AM EDT Appointment Radiology Department - [address] [phone] 09/17/2026 1:00 PM EST Office Visit Pulmonology - [address] [place] [phone] Rosario Uribe, ZULEIKA [address] [place] [address] documented as of this encounter Visit Diagnoses Not on filedocumented in this encounter Additional Health Concerns Assessment Noted Time A fall risk assessment has been complete d for the patient 10/25/2024 2:40 PM EST documented as of this encounter Care Teams Operations Administrator Relationship Specialty Start Date End Date Jonna Nieto MD [address] [place], [place] PCP - General Internal Medicine 07/13/22 documented as of this encounter
--- OUTSIDE RECORDS SUMMARY | 2025-09-22 17:49 | XMS_ITS | Clinical Summary ---
Author Organization 175 [facility] Address [address] [place] [address] Phone Care Team Providers Care Loom Changer Name Role Phone Jonna Nieto MD Primary [...] mouth 1 (one) time each day. Active Eliquis 5 mg tablet TAKE 1 TABLET BY MOUTH 2 TIMES DAILY EVERY 12 HOURS 180 tablet 1 05/21/20 25 Active metoprolol tartrate (LOPRESSOR) 50 mg tablet Take 1 tablet (50 mg total) by mouth 2 (two) times a day. 90 tablet 1 05/29/20 25 Active ferrous sulfate 325 mg (65 mg iron) EC tabletIndicatio ns:Iron deficiency anemia, unspecified iron deficiency anemia type TAKE 1 TABLET BY MOUTH 1 TIME EACH DAY WITH BREAKFAST. 90 tablet 07/09/20 25 Active losartan (COZAAR) 50 mg tablet TAKE 1 TABLET BY MOUTH EVERY DAY (NEED MED D CARD) 90 tablet 1 07/30/20 25 Active pantoprazole (PROTONIX) 40 mg EC tablet TAKE 1 TABLET BY MOUTH EVERY DAY 90 tablet 08/31/20 25 Active nitrofurantoin, macrocrystal-mo nohydrate, (MACROBID) 100 mg capsule Take 1 capsule (100 mg total) by mouth 2 (two) times a day for 5 days. 10 each 09/21/20 25 025 Active pantoprazole (PROTONIX) 40 mg EC tablet TAKE 1 TABLET BY MOUTH EVERY DAY 90 tablet 02/06/20 25 025 Discontinued Active Problems Problem Noted Date Diagnosed Date Overweight (BMI 25.0-29.9) 02/21/2025 Pneumonia 12/07/2024 Hemiplegia and hemiparesis f ollowing cerebral infarction affecting right dominant side (CMS/HCC V24, CMS/HCC V28) 12/07/2024 History of falling 12/07/2024 Personal history of urinary (tract) infections 0 12/07/2024 Personal history of malignant melanoma of skin 0 12/07/2024 [facility] (current) use of anticoagulants 2024 Unspecified mood (affective) disorder ([facility] V 24) 12/07/2024 Gastroesophageal reflux disease without [...] her vulvar skin from her diaper. A-fib ([facility] V24, [facility] V28) 11/24/2023 Overview (09/21/2024): Last Assessment & [...] Encounters Date Type Department Care Team Description 09/21/2025 9:30 AM EST Office Visit Adult Medicine [address] [phone] Lucas Rahman MD Urinary tract infection without hematuria, site unspecified (Primary Dx) 09/17/2025 1:50 PM EST Office Visit Pulmonology - [address] [place] [phone] Rosario Uribe NP Lung nodules (Primary Dx); Recurrent infections; Longstanding persistent atrial fibrillation (CMS/HCC V24, CMS/HCC V28); Obesity (BMI 30.0-34.9) 07/24/2025 11:30 AM EDT Office Visit Adult [address] [phone] Jonna Nieto MD Encounter for general adult medical examination without abnormal findings (Primary Dx); Atrial fibrillation, unspecified type (CMS/HCC V24, CMS/HCC V28); Benign essential hypertension; Hypercholesterolemia ; Postmenopausal; Advance care planning 07/19/2025 Results Follow-Up Adult Medicine [facility] [address] [place], [place] [phone] Jonna Nieto MD 07/16/2025 12:32 PM EDT - 07/16/2025 11:59 PM EDT Hospital Encounter CT [facility] [id number] [place], [place] [phone] Lung nodules Discharge Disposition: Home or Self Care 07/10/2025 1:00 PM EDT Office Visit Pulmonology - [place] [address] [place] [address] Rosario Uribe, ZULEIKA Lung nodules (Primary Dx); Longstanding persistent atrial fibrillation (CMS/HCC V24, CMS/HCC V28); Obesity (BMI 30.0-34.9) from Last 3 Months Immunizations Immunization Administration [...] cyst rwemoved long time ago SALPINGOOPHORECTOMY PROCEDURE: W[place] LAPAROSCOPY W/RMVL ADNEXAL STRUCTURES; COMMENT: cyst removed APPENDECTOMY 1964 PROCEDURE: W[place] APPENDECTOMY CHOLECYSTECTOMY 1968 PROCEDURE: W[place] LAPAROSCOPY SURG CHOLECYSTECTOMY FINE NEEDLE ASPIRATION PROCEDURE: FINE NDLE ASPRTN W/IMAGING GUIDANCE; COMMENT: lt. breast bx-benign BREAST SURGERY PROCEDURE: WV UNLISTED PROCEDURE BREAST; COMMENT: lt. cyst removed... [...] your loved ones. For example, child development teacher or elderly care for an older [...] F) 09/21/2025 9:27 AM EST Respiratory Rate 15 09/17/2025 1:31 PM EST Oxygen Saturation 98% 09/17/2025 1:3 1 PM EST Inhaled Oxygen Concentration - - Weight 78.9 kg (174 lb) 09/17/2025 1:31 PM EST Height 160 cm (5' 3 ) 09/21/2025 9:27 AM EST Body Mass Index 30.82 09/17/2025 1:31 PM EST Plan of Treatment Upcoming Encounters Date Type Department Care Team (Late st Contact Info) Description 01/25/2026 11:15 AM EDT Office Visit Adult Medicine East - [address] [phone] Jonna Nieto MD [address] [place], [place] 02/13/2026 9:20 AM EDT Appointment Radiology Department - [address] [phone] 09/17/2026 1:00 PM EST Office Visit Pulmonology - [address] [place] [address] Rosario Uribe, ZULEIKA [address] [place] [address] Health Maintenance Due Date Last Done Comments Zoster Vaccines (1 of 2) 1959 RSV Immunization Adult Patients (1 - 1-dose 75+ series) 2015 Osteoporosis Screening (Bone Density Screening) 09/26/2022 COVID-19 Vaccine ( - 2024- season) 2025 01/14/2021, 12/24/2020, 12/03/2020 Hypertension/CHF/CAD Annual [...] Procedure Name Priority Date/Time Associated Diagnosis Comments MCDOWELL URINE CULTURE TUBE Routine 09/21/2025 10:16 [...] Urinary tract infection without hematuria, site unspecified CBC WITH AUTO DIFFERENTIAL Routine 07/19/2025 11:28 AM EDT Iron deficiency anemia, unspecified iron deficiency anemia type CBC AND DIFFERENTIAL Routine 07/19/2025 11:28 AM EDT Iron deficiency anemia, unspecified iron deficiency anemia type CT CHEST WO CONTRAST Routine 07/16/2025 12:54 PM EDT Lung nodules BASIC METABOLIC PANEL Routine 02/21/2025 9:50 AM EDT Decreased GFR LIPID PANEL WITH REFLEX TO DIRECT LDL Routine 09/19/2024 11:59 AM EST Benign hypertension Hypercholesterolemi a Prediabetes HM DEPRESSION SCREENING Routine 07/19/2024 from Last 3 Months or Most Recently Relevant to Health Maintenance Results * (ABNORMAL) Urinalysis with reflex microscopic and culture (09/21/2025 10:16 AM EST) Specific [place] Urine 1.011 1.003 - 1.030 LAB URINALYSIS - AUTOMATED METHOD 09/21/2025 4:18 PM [facility] pH, Urine 6.5 5.0 - 8.0 pH LAB URINALYSIS - AUTOMATED METHOD 09/21/2025 4:18 PM [facility] Leukocytes, Urine Large(A) Negative LAB URINALYSIS - AUTOMATED METHOD 09/21/2025 4:18 PM [facility] Nitrite, Urine Negative Negative LAB URINALYSIS - AUTOMATED METHOD 09/21/2025 4:18 PM [facility] Protein, Urine 30(A) <=Trace mg/dL LAB URINALYSIS - AUTOMATED METHOD 09/21/2025 4:18 PM [facility] Glucose, Urine Negative Negative mg/dL LAB URINALYSIS - AUTOMATED METHOD 09/21/2025 4:18 PM [facility] Ketones, Urine Negative Negative mg/dL LAB URINALYSIS - AUTOMATED METHOD 09/21/2025 4:18 PM [facility] Urobilinogen, Urine 0.2 0.2 - 1.0 mg/dL LAB URINALYSIS - AUTOMATED METHOD 09/21/2025 4:18 PM [facility] Bilirubin, Urine Negative Negative LAB URINALYSIS - AUTOMATED METHOD 09/21/2025 4:18 PM [facility] Blood, Urine Large(A) Negative LAB URINALYSIS - AUTOMATED METHOD 09/21/2025 4:18 PM [facility] RBC, Urine >100(H) 0 - 4 /HPF 09/21/2025 4:18 PM [facility] WBC, Urine >100(H) 0 - 4 /HPF 09/21/2025 4:18 PM [facility] Squamous Epithelial, Urine 10 0 - 60 /LPF 09/21/2025 4:18 PM [facility] Bacteria, Urine Many(A) Negative /HPF 09/21/2025 4:18 PM [facility] Hyaline Casts, Urine 0 0 - 3 /LPF 09/21/2025 4:18 PM [facility] Urine Urine specimen obtained by clean catch procedure / Unknown Non-blood Collection / Unknown 09/21/2025 10:16 AM EST 09/21/2025 10:16 AM EST Lucas Rahman MD LAB URINE ORDERABLES Final Result [facility] [address] [place] [address], * Mcdowell urine culture tube (09/21/2025 10:16 AM EST) Extra Tube Hold for add-ons. 09/21/2025 3:01 PM [facility] Comment:Auto resulted. Urine Urine specimen obtained by clean catch procedure / Unknown Non-blood Collection / Unknown 09/21/2025 10:16 AM EST 09/21/2025 10:16 AM EST Lucas Rahman MD LAB URINE ORDERABLES Final Result [facility] [address] [place] [address], * (ABNORMAL) POC Urine Auto W/O Micro (09/21/2025 9:46 AM EST) Pathologist [facility] Leukocytes UA POC Positive(A) Negative Nitrite UA POC Positive(A) Negative Urobilinogen UA POC Negative Negative Protein UA POC Positive(A) Negative PH UA POC 6.5 5.0 - 9.0 Blood UA POC Positive(A) Negative, Trace Specific [place] UA POC 1.020 1.001 - 1.035 Ketones UA POC 1+(A) Negative Bilirubin UA POC Positive(A) Negative Glucose UA POC Normal Normal, Trace Color UA POC Red Urine Urine specimen obtained by clean catch procedure / Unknown 09/21/2025 9:46 AM EST Lucas Rahman MD POINT OF CARE TEST ENTER/ED IT ORDERABLES Final Result * (ABNORMAL) CBC auto differential (07/19/2025 11:28 AM EDT) [facility] WBC 10.1 4.8 - 10.8 K/mcL LAB HEMETOLOGY METHOD 07/19/2025 12:21 PM EDT [facility] RBC 4.50 3.80 - 4.80 M/mcL LAB HEMETOLOGY METHOD 07/19/2025 12:21 PM EDT [facility] Hemoglobin 13.7 11.5 - 16.0 g/dL LAB HEMETOLOGY METHOD 07/19/2025 12:21 PM EDT [facility] Hematocrit 42.6 35.0 - 47.0 % LAB HEMETOLOGY METHOD 07/19/2025 12:21 PM [facility] MCV 95.1 79.0 - 98.0 FL LAB HEMETOLOGY METHOD 07/19/2025 12:21 PM EDT [facility] MCH 30.6 27.0 - 32.0 pcg LAB HEMETOLOGY METHOD 07/19/2025 12:21 PM [facility] MCHC 32.2 32.0 - 37.0 g/dL LAB HEMETOLOGY METHOD 07/19/2025 12:21 PM [facility] RDW 13.9 11.0 - 15.0 % LAB HEMETOLOGY METHOD 07/19/2025 12:21 PM [facility] Platelets 277 130 - 400 K/mcL LAB HEMETOLOGY METHOD 07/19/2025 12:21 PM [facility] MPV 10.8 7.0 - 11.0 FL LAB HEMETOLOGY METHOD 07/19/2025 12:21 PM [facility] NRBC 0.0 <1.0 % LAB HEMETOLOGY METHOD 07/19/2025 12:21 PM [facility] NRBC Absolute 0.00 <0.10 K/mcL LAB HEMETOLOGY METHOD 07/19/2025 12:21 PM [facility] Neutrophils Relative 65.5 % LAB HEMETOLOGY METHOD 07/19/2025 12:21 PM [facility] Lymphocytes Relative 22.1 % LAB HEMETOLOGY METHOD 07/19/2025 12:21 PM [facility] Monocytes Relative 7.0 % LAB HEMETOLOGY METHOD 07/19/2025 12:21 PM [facility] Eosinophils Relative 3.8 % LAB HEMETOLOGY METHOD 07/19/2025 12:21 PM [facility] Basophils Relative 1.0 % LAB HEMETOLOGY METHOD 07/19/2025 12:21 PM [facility] Immature Granulocytes Relative 0.6 % LAB HEMETOLOGY METHOD 07/19/2025 12:21 PM [facility] Neutrophils Absolute 6.59 1.50 - 7.00 K/mcL LAB HEMETOLOGY METHOD 07/19/2025 12:21 PM EDT [facility] Lymphocytes Absolute 2.22 1.00 - 5.00 K/mcL LAB HEMETOLOGY METHOD 07/19/2025 12:21 PM EDT [facility] Monocytes Absolute 0.70 0.20 - 1.00 K/mcL LAB HEMETOLOGY METHOD 07/19/2025 12:21 PM EDT [facility] Eosinophils Absolute 0.38 0.00 - 0.50 K/mcL LAB HEMETOLOGY METHOD 07/19/2025 12:21 PM EDT [facility] Basophils Absolute 0.10 0.00 - 0.20 K/mcL LAB HEMETOLOGY METHOD 07/19/2025 12:21 PM EDT [facility] Immature Granulocytes Absolute 0.06(H) 0.00 - 0.03 K/mcL LAB HEMETOLOGY METHOD 07/19/2025 12:21 PM EDT [facility] Blood Venous blood specimen / Unknown Venipuncture / Unknown 07/19/2025 11:28 AM EDT 07/19/2025 11:28 AM EDT us Jonna Nieto MD LAB BLOOD ORDERABL ES Final Result [facility] [address] [place] [address], * CT Chest wo Contrast (07/16/2025 12:54 [...] Signed Date: 07/16/2025 16:56 ET Workstation ID: [id number] Transcribed By: Self Edit Transcribed Date: 07/16/2025 16:37 ET Narrative 07/16/2025 4:[address] CHEST HISTORY: Lung nodule, > 8mm Patient had CT at [facility] in 11/2024 which showed lung nodules with [...] nodule, > 8mm Patient had CT at [facility] in 11/2024 which showed lung nodules with [...] Signed Date: 07/16/2025 16:56 ET Workstation ID: [id number] Transcribed By: Self Edit Transcribed Date: 07/16/2025 16:37 ET Rosario Uribe NP IMG CT PROCEDURES Final Result * Basic metabolic panel (02/21/2025 9:50 AM EDT) Sodium 138 133 - 145 mmol/L LAB CHEMISTRY METHOD 02/21/2025 1:16 PM [facility] Potassium 3.9 3.5 - 5.5 mmol/L LAB CHEMISTRY METHOD 02/21/2025 1:16 PM [facility] Chloride 106 96 - 110 mmol/L LAB CHEMISTRY METHOD 02/21/2025 1:16 PM [facility] CO2 25 21 - 32 mmol/L LAB CHEMISTRY METHOD 02/21/2025 1:16 PM [facility] Anion Gap 7 3 - 11 LAB CHEMISTRY METHOD 02/21/2025 1:16 PM [facility] Glucose 93 70 - 100 mg/dL LAB CHEMISTRY METHOD 02/21/2025 1:16 PM [facility] BUN 24 5 - 25 mg/dL LAB CHEMISTRY METHOD 02/21/2025 1:16 PM [facility] Creatinine 0.92 0.50 - 1.10 mg/dL LAB CHEMISTRY METHOD 02/21/2025 1:16 PM [facility] eGFR 62 >=60 mL/min/1. 73m2 LAB CHEMISTRY METHOD 02/21/2025 1:16 PM [facility] Comment:Calculation based on the Chronic Kidney Disease Epidemiology Collaboration (CKD-EPI) equation refit without adjustment for race. BUN/Creatinine Ratio 26.1 LAB CHEMISTRY METHOD 02/21/2025 1:16 PM [facility] Calcium 9.6 8.5 - 10.5 mg/dL LAB CHEMISTRY METHOD 02/21/2025 1:16 PM [facility] Blood Venous blood specimen / Unknown Venipuncture / Unknown 02/21/2025 9:50 AM EDT 02/21/2025 9:50 AM EDT us Katina MC LAB BLOOD ORDERABLES Final Resul t Performing Organization Address City/[facility]/ZIP Co de Phone Number [facility] [address] [place] [address], [place] [phone] * (ABNORMAL) Lipid panel with reflex to direct LDL (09/19/2024 11:59 AM EST) Cholesterol 228(H) 0 - 200 mg/dL LAB CHEMISTRY METHOD 09/19/2024 2:37 PM EST [facility] Triglycerides 200(H) 0 - 150 mg/dL LAB CHEMISTRY METHOD 09/19/2024 2:37 PM EST [facility] HDL 50 >=40 mg/dL LAB CHEMISTRY METHOD 09/19/2024 2:37 PM EST [facility] LDL Calculated 138(H) 0 - 100 mg/dL LAB CHEMISTRY METHOD 09/19/2024 2:37 PM EST [facility] VLDL Cholesterol Edmundo 40 mg/dL LAB CHEMISTRY METHOD 09/19/2024 2:37 PM EST [facility] Non HDL Chol. (LDL+VLDL) 178(H) <145 mg/dL LAB CHEMISTRY METHOD 09/19/2024 2:37 PM EST [facility] Chol/HDL Ratio 4.6(H) 0.0 - 4.4 LAB CHEMISTRY METHOD 09/19/2024 2:37 PM EST [facility] Blood Venous blood specimen / Unknown Venipuncture / Unknown 09/19/2024 11:59 AM EST 09/19/2024 11:59 AM EST us Jennifer MC LAB BLOOD ORDERABLES Final Resu lt [facility] [address] [place] [address], * Depression Screening (07/19/2024) [facility] Signature Depression Screening Abstracted us Historical Provider HEALTH MAINTENANCE Final Result from Last 3 Months or Most Recently Relevant to Health Maintenance Insurance MEDICARE [facility] MEDICAID [place] Advance Directives Documents on File Type Date Recorded 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
--- OUTSIDE RECORDS SUMMARY | 2025-09-22 17:50 | XMS_ITS | Clinical Summary ---
Author Organization [facility] Address [address] [facility] [address] [place] [id number] Phone Care Team Providers Care Venue Manager Name Role Phone Jonna Nieto MD Primary Care Prov ider Medications metoprolol [...] B [place] MED[place] PART A & [facility] B [facility] PART A & B [facility] MEDICARE PART A & B [facility] Care Teams Venue Manager Relationship Specialty Start Date End Date Jonna Nieto MD [address] [place] [address] PCP - General Internal Medicine 03/27/25 Additional Source Comments The information contained in this document represents components of the legal health record. It is not the complete legal health record.[facility]
[2025-09-22 17:53] VITALS: BP 137/68; PULSE 78; RESP 12; TEMP 36.8; O2SAT 94; O2SAT 95
--- NOTE | 2025-09-22 17:54 | ECG_ITS ---
Test Reason : SYNCOPE Blood Pressure : */* mmHG Vent. Rate : 97 BPM Atrial Rate : * BPM P-R Int : * ms QRS Dur : 82 ms QT Int : 302 ms P-R-T Axes : * 29 203 degrees QTcB Int : 383 ms Atrial fibrillation Nonspecific ST and T wave abnormality Abnormal ECG When compared with ECG of 05-Mar-2025 09:58, QT has shortened Referred By: Zamzam Thompson Electronically Signed By: ERMA TOVAR
--- NOTE | 2025-09-22 17:58 | ED.DIZZY ---
HPI - Dizziness General Chief Complaint: Syncope Stated Complaint: SYNCOPE @ TABLE, UTI/ABX Time Seen by Provider: 09/22/25 17:33 History of Present Illness HPI Narrative: patient is an 85-year-old female presents today after a near syncopal episode in the wheelchair. Patient denies any pain but feels very nauseous. Has a history of UTI. He is currently on Macrobid. Positive history of CVA positive history of atrial fibrillation currently on Eliquis. Question head injury. No diaphoresis. From home. No blood in the stool. Related Data Home Medications ?Medication ?Instructions ?Recorded ?Confirmed losartan 50 mg tablet 50 mg PO DAILY 10/01/23 08/29/25 srjmqrdrzozn-uayjluhw-xfmffl tablet 1 tab PO DAILY 10/01/23 08/29/25 pantoprazole 40 mg tablet,delayed 40 mg PO DAILY@0630 10/01/23 08/29/25 release apixaban 5 mg tablet (Eliquis) 5 mg PO BID 10/10/23 08/29/25 melatonin 3 mg tablet 6 mg PO BEDTIME Sleep 10/10/23 08/29/25 metoprolol tartrate 50 mg tablet 25 mg PO BID 10/21/23 08/29/25 cranberry fruit 450 mg tablet 450 mg PO BID 12/08/23 08/29/25 (cranberry) loperamide 2 mg capsule 4 mg PO QID PRN Diarrhea 01/21/24 08/29/25 acetaminophen 500 mg tablet 1,000 mg PO TID PRN Pain 11/02/24 08/29/25 potassium chloride 20 mEq 20 meq PO DAILY 11/02/24 08/29/25 tablet,extended release vitamin D3 125 mcg (5,000 1 cap PO DAILY 11/02/24 08/29/25 unit)-vitamin K2 90 mcg capsule amlodipine 2.5 mg tablet 2.5 mg PO DAILY 03/06/25 08/29/25 nitrofurantoin 1 cap PO BID 03/06/25 08/29/25 monohydrate/macrocrystals 100 mg capsule Previous Rx's ?Medication ?Instructions ?Recorded walker (Ultra-Light Rollator [facility] [place]) #1 ea 08/22/21 cefuroxime axetil 250 mg tablet 250 mg PO BID 5 days #10 tabs 06/14/25 gabapentin 100 mg capsule 200 mg (2 x 100 mg) PO BEDTIME 30 07/12/25 days #60 caps Allergies Allergy/AdvReac Type Severity Reaction Status Date / Time codeine Allergy Unknown rash Verified 09/22/25 17:31 Penicillins AdvReac Hives Verified 09/22/25 17:31 terbinafine (From Lamisil) AdvReac Hives Verified 09/22/25 17:31 Review of Systems Review of Systems: Positive near syncopal episode positive nausea vomiting Yes all other systems are reviewed and are negative [facility] Past Medical History Attestation statement: The following information was validated with the patient. Medical History Stroke Vitamin D deficiency Multifocal pneumonia Atrial fibrillation Pyuria Episode of syncope Urinary tract infection Syncope, vasovagal Right hemiparesis HLD (hyperlipidemia) Atrial fibrillation History of malignant melanoma History of basal cell carcinoma History of dysplastic nevus Degenerative joint disease (DJD) of hip Low back pain radiating to left lower extremity History of squamous cell carcinoma Venous insufficiency (chronic) (peripheral) Diarrhea Hypertension Surgical History H/O breast biopsy Hx of colonoscopy Hx of cholecystectomy Hx of appendectomy Family History Family History Father Throat cancer Mother Kidney failure Social History Social History Household Members: Family Housing: House Do you presently have visiting nurse or other home services: Yes Alcohol intake: current Alcohol intake frequency: 0-2 drinks per day Alcohol type: wine Comment: pt aware she needs to ask for help before getting up Patient Tobacco Use Status: Never used Tobacco Smoked in Last 30 Days: No Use of substances other than those prescribed or required for medical reasons: No Advance Directives: Yes Advance Directives on File: Yes Advance Directives Date on File: 11/02/23 Do you have a plan to hurt others: No Plan service: No Physical Exam Exam: Exam: Appearance: Alert. Oriented X3. No acute distress. Eyes: Pupils equal, round and reactive to light. ENT: Pharynx normal. Neck: Normal inspection. Neck supple. No lymph nodes noted. No crepitus CVS: Normal heart rate and rhythm. Pulses normal. Normal S1 and S2 Respiratory: No respiratory distress. Breath sounds normal. No Wheezing. No rales Abdomen: Soft and nontender. No rigidity. No distention. good BS x4 Skin: Skin warm and dry. Normal skin color. Normal skin turgor. Extremities: No lower extremity edema. Neurovascular intact to all extremities. No Lacerations. No Rash Neuro: Oriented X 3. Slight right-sided weakness. Vital Signs: Vital Signs: Last Vital Signs Temp 98.3 F 09/23/25 00:37 Pulse 81 09/23/25 00:37 Resp 18 09/23/25 00:37 BP 122/50 L 09/23/25 00:37 Pulse Ox 96 09/23/25 00:37 O2 Del Method Room Air 09/23/25 00:37 BMI result Body Mass Index 28.2 Medications Administered Generic Name Dose Route Start Last Admin Trade Name Freq PRN Reason Stop Dose Admin Azithromycin 500 mg/ Sodium 250 mls @ 125 mls/hr 09/23/25 00:04 09/23/25 01:06 Chloride IV 09/23/25 02:03 125 mls/hr ONCE ONE Administration Discontinued Medications Generic Name Dose Route Start Last Admin Trade Name Freq PRN Reason Stop Dose Admin Sodium Chloride 500 mls @ 999 mls/hr 09/22/25 18:00 09/22/25 20:45 Ns IV 09/22/25 18:30 Infused .Q31M MILI Infusion Sodium Chloride 1,000 mls @ 999 mls/hr 09/23/25 00:15 09/23/25 00:35 Ns IV 09/23/25 01:15 999 mls/hr .Q1H1M MILI Administration Iohexol 100 ml 09/22/25 20:04 09/22/25 20:04 Iohexol 350 Mg/Ml 100 Ml Infus..Btl IV 09/22/25 20:05 85 ml ONCE ONE Administration Ondansetron HCl 4 mg 09/22/25 17:54 09/22/25 19:31 Ondansetron Hcl 4 Mg/2 Ml Vial IVPUSH 09/22/25 17:55 4 mg ONCE ONE Administration Medical Decision Making Medical Decision Making MDM Narrative: 85-year-old female presented today with having a syncopal episode in the wheelchair. Patient complaining of extreme nausea vomiting not feeling well. Question history of UTI is on Macrobid. Feels very nauseous. Baseline is on Eliquis for atrial fibrillation. My interpretation patient's EKG shows an atrial fibrillation pattern heart rate is about 100 QRS is normal there is no significant ST segment elevation. Radiology's interpretation of the chest x-ray showed a question atelectasis versus pneumonia. Patient is CT head by my interpretation is grossly negative for any bleeding. Radiology's interpretation patient's CT scan abdomen pelvis was positive for a 5 mm proximal ureteral stone. Question causing patient's nausea. There is no evidence of bowel obstruction. Patient's TSH is normal. IV fluid was given. White count significantly elevated at 24.8 question reactive to the nausea vomiting. INR is normal. LFTs are fairly unremarkable troponin is normal lipase is normal TSH is normal patient's urine showed large amount of blood but there is no gross infection. IV fluid was given. Blood pressure remained stable had a long discussion with the hospitalist team. Will admit for the near syncopal episode. Nausea vomiting. Will consult Urology in a.m. for the kidney stone. Differential Diagnosis Differential Diagnoses: The differential diagnosis associated with the presentation includes Obstruction, head injury, arrhythmia, AFib, electrolyte disturbance, infection Admission/Observation Consideration of admission/observation: Escalation of care including admission/observation considered Consult Healthcare Provider Management of the patient was discussed with: [place] Operator (Hospitalist) Lab Data MDM Lab Attestation statement: I reviewed the patient's lab results. 09/22/25 18:55 09/22/25 18:55 Labs: Lab Results 09/22/25 09/22/25 09/22/25 Range/Units 18:55 18:55 21:44 WBC 24.8 H (4.8-10.8) X10*3/uL RBC 4.32 (4.20-5.50) X10*6/uL Hgb 13.7 (12.0-16.0) g/dl Hct 40.1 (37.0-47.0) % MCV 92.8 (80.0-98.0) fL MCH 31.7 (27.0-33.0) pg MCHC 34.2 (31.0-35.0) g/dl RDW 13.4 (11.0-16.0) % Plt Count 279 (160-400) X10*3/uL MPV 10.3 (9.4-12.3) fL Immature Gran % (Auto) 0.5 H (0.0-0.4) % Neut % (Auto) 92.8 H (45-73) % Lymph % (Auto) 2.4 L (20-40) % [place] % (Auto) 3.6 (2-11) % Eos % (Auto) 0.4 (0-4) % Baso % (Auto) 0.3 (0-2) % Lymph # (Auto) 0.6 L (1.2-4.9) X10*3/uL [place] # (Auto) 0.9 (0.1-1.2) X10*3/uL Eos # (Auto) 0.1 (0.0-0.4) X10*3/uL Baso # (Auto) 0.1 (0.0-0.2) X10*3/uL Abs Immat Gran (auto) 0.12 H (0.00-0.03) X10*3/uL Absolute Neuts (auto) 23.0 H (2.0-8.3) x10*3/uL Absolute Nucleated RBC 0.000 (0.0-0.012) X10*3/uL Nucleated RBC % (auto) 0.0 (0.0-0.2) /100WBC Smear Tech's Comments VERIFIED PT 17.8 H (11.2-13.5) SEC INR 1.5 H (0.9-1.1) Sodium 143 (135-145) mmol/L Potassium 3.6 (3.3-5.1) mmol/L Chloride 107 (96-108) mmol/L Carbon Dioxide 25 (22-29) mmol/L Anion Gap 15 (12-20) BUN 19 H (9-16) mg/dL Creatinine 0.94 (0.5-1.4) mg/dL Estim Creat Clear Calc 46.4 Estimated GFR 57 Random Glucose 140 H (60-115) mg/dL Calcium 10.2 (8.4-10.2) mg/dL Total Bilirubin 0.7 (0.0-1.0) mg/dL Direct Bilirubin 0.2 (0.0-0.5) mg/dL AST 30 (5-31) U/L ALT 28 (0-31) U/L Alkaline Phosphatase 120 H (39-117) U/L Troponin I High Sens 5.4 (<3.5-17.0) ng/L Total Protein 8.2 H (6.5-8.0) g/dL Albumin 5.0 (3.5-5.0) g/dL Lipase 14 (8-78) U/L TSH 2.07 Cancelled (0.32-4.0) uIU/mL Urine Color Yellow Urine Appearance Clear Urine pH 7.0 (5.0-9.0) Ur Specific [place] >= 1.030 H (1.005-1.025) Urine Protein Negative (Neg-Trace) mg/dL Urine Glucose (UA) Negative (Negative) mg/dL Urine Ketones Trace (Negative) mg/dL Urine Blood Large (3+) H (Negative) Urine Nitrite Negative (Negative) Ur Leukocyte Esterase Small (1+) H (Negative) Urine RBC >20 H (0-2) /HPF Urine WBC 11-20 H (0-5) /HPF Ur Squamous Epith Cells 0-2 (0-2) /HPF Urine Bacteria None Seen (None Seen) Hyaline Casts 0-2 (0-2) /LPF Independent Interpretation I performed an independent interpretation of an: EKG (My interpretation patient's EKG shows an atrial fibrillation pattern heart rate is 100) and CT Scan (My interpretation patient's CT head is grossly negative) Radiology Impression Discussion of test interpretation with radiology: I have reviewed the radiologist's reading. Radiologist Impression: Radiology's read the CT scan abdomen pelvis positive for having a proximal ureteral stone. Radiology's also interpreted the chest x-ray is a question pneumonia. External Record Review External record reviewed: Inpatient record Chronic Conditions Patient?s care impacted by: Hypertension Atrial fibrillation Social Determinants Patient?s care significantly limited by Social Determinants of Health including: Problems related to primary support group Critical Care Time Critical Care Time Critical Care Time: Yes Total Critical Care Time: 40 Attestation: I have personally provided 40 minutes of critical care time exclusive of time spent on separately billable procedures. ?Time includes review of lab data, radiology results, discussion with consultants, and monitoring for potential decompensation. ?Interventions were performed as documented above Discharge Plan Discharge Clinical Impression: Near syncope, Renal colic, Pneumonia Patient Disposition: Admitted As Inpatient
[2025-09-22 19:00] VITALS: BP 137/68; PULSE 78; RESP 12; TEMP 36.8; O2SAT 94
[2025-09-22 19:01] LABS: NRBC Abs Auto 0.000 X10*3/uL (0.0-0.012); NRBC Pct Auto 0.0 /100WBC (0.0-0.2); PLT CLUMP 1; SCAN SMEAR FLAG 1
--- NOTE | 2025-09-22 19:01 | PC.NURSE ---
BIBA from home Patient had syncople episode at home Denies pain, sob, dizziness Patient on thinners Patient hard stick, unable to obtain IV access after multiple attempts Assisting nurse placed 18G IV blood collected/ sent Son at bedside Plan of care on going
[2025-09-22 19:03] LABS: Hematocrit 40.1 % (37.0-47.0); Hemoglobin 13.7 g/dl (12.0-16.0); Imm Gran Abs Auto 0.12 X10*3/uL (0.00-0.03); Imm Gran Pct Auto 0.5 % (0.0-0.4); Lymphocytes Absolute Auto 0.6 X10*3/uL (1.2-4.9); MANUAL DIFF FLAG SCAN; Mean Corpuscular HGB Conc 34.2 g/dl (31.0-35.0); Mean Corpuscular Hemoglobin 31.7 pg (27.0-33.0); Mean Corpuscular Volume 92.8 fL (80.0-98.0); Red Blood Count 4.32 X10*6/uL (4.20-5.50)
[2025-09-22 19:06] LABS: INTERNATIONAL NORM RATIO 1.5 (0.9-1.1); Prothrombin Time 17.8 SEC (11.2-13.5)
[2025-09-22 19:19] LABS: Platelet Count 279 X10*3/uL (160-400); White Blood Count 24.8 X10*3/uL (4.8-10.8)
[2025-09-22 19:25] LABS: Alanine Aminotransferase 28 U/L (0-31); Albumin Level 5.0 g/dL (3.5-5.0); Alkaline Phosphatase 120 U/L (39-117); Anion Gap 15 (12-20); Aspartate Amino Transferase 30 U/L (5-31); Blood Urea Nitrogen 19 mg/dL (9-16); Calcium 10.2 mg/dL (8.4-10.2); Carbon Dioxide 25 mmol/L (22-29); Chloride 107 mmol/L (96-108); Creatinine Clr Calc Pharmacy 46.4; Estimated Glomerular Filt Rate 57; Lipase 14 U/L (8-78); Potassium 3.6 mmol/L (3.3-5.1); Sodium 143 mmol/L (135-145); Total Protein 8.2 g/dL (6.5-8.0)
[2025-09-22 19:28] LABS: Troponin-I High Sensitivity 5.4 ng/L (<3.5-17.0)
--- NOTE | 2025-09-22 19:30 | PC.NURSE ---
18 g ultrasound IV left upper arm
--- NOTE | 2025-09-22 19:49 | PC.NURSE ---
Pt resting quietly in bed at this time. Per previous RN, there was difficulty obtaining IV access so meds were delayed. Meds administered as ordered after obtaining access. All needs met at this time, call aguilar within reach.
[2025-09-22] MEDS: iohexoL 350 MG/ML 100 ML INFUS..BTL IV (20:04)
[2025-09-22 20:14] VITALS: BP 160/64; PULSE 114; RESP 18; TEMP 36.3; O2SAT 94
[2025-09-22 21:50] LABS: Appearance Urine Clear; Glucose Urine UA Negative (Negative); PH 7.0 (5.0-9.0); Specific Gravity - Urine >= 1.030 (1.005-1.025); UMIC TRIGGER UACC YES
[2025-09-22 21:55] LABS: UACC Culture Trigger YES
[2025-09-22 22:00] VITALS: BP 135/57; PULSE 98; RESP 20; TEMP 36.9; O2SAT 93
[2025-09-23] VITALS (9 sets, daily range): BP systolic 96–131; BP diastolic 50–66; PULSE 70–81; RESP 16–18; TEMP 36.2–37.1; O2SAT 94–96; BMI 34.2; BMI 33.2
--- NOTE | 2025-09-23 00:10 | PC.NURSE ---
Addendum entered by Esha Doss RN 09/23/25 05:00: LATE ENTRY Original Note: Blood cultures, lactic, IV fluids, and IV abx ordered per MD Thompson. Sepsis protocol initiated.
--- NOTE | 2025-09-23 00:21 | PM.IMHP ---
History of Present Illness Date of Service: 09/23/25 Chief Complaint: Abdominal pain 85-year-old female with a past medical history of HTN, HLD, [id number] hemiparesis, malignant melanoma, atrial fibrillation-on Eliquis presented to the hospital today with a chief complaint of nausea/vomiting/abdominal pain. Patient reports over the past day she has been having nausea vomiting and abdominal discomfort. Denies any fevers and chills. Mentioned she has baseline wheelchair-bound. Today she felt like she is going to lose consciousness but did not faint. Denies any chest pain or palpitations. Mentioned she has baseline right-sided weakness-unchanged. Review of all other systems is negative except mentioned above ER course: Per ER team, patient on exam has baseline right-sided weakness: Blood pressure was stable; CT abdomen pelvis showed UPJ stone with mild hydronephrosis. UA negative. [facility] Medical History Stroke Vitamin D deficiency Multifocal pneumonia Atrial fibrillation Pyuria Episode of syncope Urinary tract infection Syncope, vasovagal Right hemiparesis HLD (hyperlipidemia) Atrial fibrillation History of malignant melanoma History of basal cell carcinoma History of dysplastic nevus Degenerative joint disease (DJD) of hip Low back pain radiating to left lower extremity History of squamous cell carcinoma Venous insufficiency (chronic) (peripheral) Diarrhea Hypertension Family History Father Throat cancer Mother Kidney failure Surgical History H/O breast biopsy Hx of colonoscopy Hx of cholecystectomy Hx of appendectomy Social History Household Members: Family Housing: House Do you presently have visiting nurse or other home services: Yes Alcohol intake: current Alcohol intake frequency: 0-2 drinks per day Alcohol type: wine Comment: pt aware she needs to ask for help before getting up Patient Tobacco Use Status: Never used Tobacco Smoked in Last 30 Days: No Use of substances other than those prescribed or required for medical reasons: No Advance Directives: Yes Advance Directives on File: Yes Advance Directives Date on File: 11/02/23 Do you have a plan to hurt others: No Plan service: No Meds Allergies Allergy/AdvReac Type Severity Reaction Status Date / Time codeine Allergy Unknown rash Verified 09/22/25 17:31 Penicillins AdvReac Hives Verified 09/22/25 17:31 terbinafine (From Lamisil) AdvReac Hives Verified 09/22/25 17:31 Active Medications: Current Medications Ceftriaxone Sodium 1 gm/ (Sodium Chloride) 50 mls @ 100 mls/hr IV ONCE ONE Stop: 09/23/25 00:33 Azithromycin 500 mg/ Sodium (Chloride) 250 mls @ 125 mls/hr IV ONCE ONE Stop: 09/23/25 02:03 Sodium Chloride (Ns) 1,000 mls @ 999 mls/hr IV .Q1H1M MILI Stop: 09/23/25 01:15 Home Medications ?Medication ?Instructions ?Recorded ?Confirmed ?Last Taken ?Type losartan 50 mg tablet 50 mg PO DAILY 10/01/23 08/29/25 03/02/25 History wkmartihzbkz-oozwngme-rqjoue tablet 1 tab PO DAILY 10/01/23 08/29/25 03/04/25 History pantoprazole 40 mg tablet,delayed 40 mg PO DAILY@0630 10/01/23 08/29/25 03/04/25 History release apixaban 5 mg tablet (Eliquis) 5 mg PO BID 10/10/23 08/29/25 03/04/25 History melatonin 3 mg tablet 6 mg PO BEDTIME Sleep 10/10/23 08/29/25 03/04/25 History metoprolol tartrate 50 mg tablet 25 mg PO BID 10/21/23 08/29/25 03/02/25 History cranberry fruit 450 mg tablet 450 mg PO BID 12/08/23 08/29/25 03/04/25 History (cranberry) loperamide 2 mg capsule 4 mg PO QID PRN Diarrhea 01/21/24 08/29/25 03/04/25 History acetaminophen 500 mg tablet 1,000 mg PO TID PRN Pain 11/02/24 08/29/25 03/04/25 History potassium chloride 20 mEq 20 meq PO DAILY 11/02/24 08/29/25 03/04/25 History tablet,extended release vitamin D3 125 mcg (5,000 1 cap PO DAILY 11/02/24 08/29/25 03/04/25 History unit)-vitamin K2 90 mcg capsule amlodipine 2.5 mg tablet 2.5 mg PO DAILY 03/06/25 08/29/25 03/02/25 History nitrofurantoin 1 cap PO BID 03/06/25 08/29/25 03/04/25 History monohydrate/macrocrystals 100 mg capsule Physical Exam Vital Signs and Narrative: Vital Signs: Last Vital Signs Temp 98.4 F 09/22/25 22:00 Pulse 98 09/22/25 22:00 Resp 20 09/22/25 22:00 BP 135/57 L 09/22/25 22:00 Pulse Ox 93 09/22/25 22:00 O2 Del Method Room Air 09/22/25 22:00 BMI result Body Mass Index 28.2 Gen: Appears be in no acute distress HEENT: NCAT, Moist mucosa. Pulmonary: Vesicular breath sounds, fair air entry CVS: Normal S1-S2 Abdomen: BS+, Soft, Nontender Extremities: Warm well perfused Neuro: Alert and awake. Results Labs 09/22/25 18:55 09/22/25 18:55 Labs: Laboratory Results - last 24 hr 09/22/25 09/22/25 09/22/25 18:55 18:55 21:44 MCV 92.8 MCH 31.7 MCHC 34.2 RDW 13.4 Plt Count 279 MPV 10.3 Immature Gran % (Auto) 0.5 H Neut % (Auto) 92.8 H Lymph % (Auto) 2.4 L [place] % (Auto) 3.6 Eos % (Auto) 0.4 Baso % (Auto) 0.3 Lymph # (Auto) 0.6 L [place] # (Auto) 0.9 Eos # (Auto) 0.1 Baso # (Auto) 0.1 Abs Immat Gran (auto) 0.12 H Absolute Neuts (auto) 23.0 H Absolute Nucleated RBC 0.000 Nucleated RBC % (auto) 0.0 Smear Tech's Comments VERIFIED PT 17.8 H INR 1.5 H Anion Gap 15 Estim Creat Clear Calc 46.4 Estimated GFR 57 Random Glucose 140 H Calcium 10.2 Total Bilirubin 0.7 Direct Bilirubin 0.2 AST 30 ALT 28 Alkaline Phosphatase 120 H Troponin I High Sens 5.4 Total Protein 8.2 H Albumin 5.0 Lipase 14 TSH 2.07 Cancelled Urine Color Yellow Urine Appearance Clear Urine pH 7.0 Ur Specific [place] >= 1.030 H Urine Protein Negative Urine Glucose (UA) Negative Urine Ketones Trace Urine Blood Large (3+) H Urine Nitrite Negative Ur Leukocyte Esterase Small (1+) H Urine RBC >20 H Urine WBC 11-20 H Ur Squamous Epith Cells 0-2 Urine Bacteria None Seen Hyaline Casts 0-2 Assessment and Plan (1) Renal colic: Status: Acute Plan 85-year-old female with a past medical history of HTN, HLD, [id number] hemiparesis, malignant melanoma, atrial fibrillation-on Eliquis presented to the hospital today with a chief complaint of nausea/vomiting/abdominal pain. Admitted for following Renal colic: Ureteral stone: Mild hydronephrosis: UTI: Continue ceftriaxone Pain control Flomax Gentle IV fluids Urology follow-up in a.m. Near-syncope: Orthostatic vitals when possible Gentle IV fluids Echocardiogram Cardiology consult HX CVA: Has baseline right-sided weakness. Chronic. HX AFib: Continue home Eliquis Med reconciliation: Continue home medications once med rec completed by pharmacy name DVT prophylaxis: Patient on Eliquis Code status: Full code Quality Stroke Does the patient have a stroke diagnosis?: No VTE Prior VTE?: No VTE Risk Level:: Medical - moderate - high VTE Device Contraindication: Treatment Not Indicated VTE Drug Contraindication: N/A - Med Ordered
--- NOTE | 2025-09-23 01:15 | PC.NURSE ---
Late entry: abx administerd and IVF running. Pt is an extremely hard stick and it took approximately 50 minutes to collect blood cultures and lactate. The ultrasound IV that was in place was found to be blown and had to be removed. This RN and geothermal hvac technician Sandrita made multiple attempts to collect labs, as well as another RN and geothermal hvac technician. One 22 g IV was able to be placed in the left forearm but had no blood return. Abx were delayed due to extreme difficulty drawing the blood cultures. Provider was unavailable to place a new ultrasound IV due to increased acuity in the department at that time. Provider aware of delayed lab draw and medication administration.
[2025-09-23] MEDS: Lactated Ringers 1,000 ML 100 ML IVCONT ×3 (03:13→21:01)
--- NOTE | 2025-09-23 04:14 | PC.NURSE ---
Orthostatic vital signs not completed at this time, pt sleeping.
--- NOTE | 2025-09-23 05:10 | HO.NURTONUR ---
Pt is an 85 y.o. female coming in with possible syncope. Pt was in her wheelchair when she felt as if she was going to pass out. Pt has residual right sided deficits from previous stroke. PMH Stroke Vitamin D deficiency Multifocal pneumonia Atrial fibrillation Pyuria Episode of syncope Urinary tract infection Syncope, vasovagal Right hemiparesis HLD (hyperlipidemia) Atrial fibrillation History of malignant melanoma History of basal cell carcinoma History of dysplastic nevus Degenerative joint disease (DJD) of hip Low back pain radiating to left lower extremity History of squamous cell carcinoma Venous insufficiency (chronic) (peripheral) Diarrhea Hypertension. Chest xray shows 1. Left basilar/retrocardiac airspace opacity, may represent atelectasis versus pneumonia. Head CT neg. Abd CT shows 5 mm stone in the proximal right ureter resulting in mild right hydronephrosis. Nonobstructing 15 x 8 mm stone in the lower pole of the right kidney. Labs show WBC 24.8, UA positive for UTI. Pt received 1 L NS and 500 mg azithromycin. LR running at 100 mL/hr. Pt is an extremely hard stick but has a 22 g in the left forearm. VSS, a&ox4. Pt uses a wheelchair and walker at baseline. Purewick in place.
[2025-09-23 05:55] LABS: MANUAL DIFF FLAG NO
[2025-09-23 05:57] LABS: Hematocrit 33.7 % (37.0-47.0); Hemoglobin 11.3 g/dl (12.0-16.0); Imm Gran Abs Auto 0.08 X10*3/uL (0.00-0.03); Imm Gran Pct Auto 0.4 % (0.0-0.4); Lymphocytes Absolute Auto 1.0 X10*3/uL (1.2-4.9); Mean Corpuscular HGB Conc 33.5 g/dl (31.0-35.0); Mean Corpuscular Hemoglobin 31.4 pg (27.0-33.0); Mean Corpuscular Volume 93.6 fL (80.0-98.0); NRBC Abs Auto 0.000 X10*3/uL (0.0-0.012); NRBC Pct Auto 0.0 /100WBC (0.0-0.2); Platelet Count 247 X10*3/uL (160-400); Red Blood Count 3.60 X10*6/uL (4.20-5.50); White Blood Count 18.1 X10*3/uL (4.8-10.8)
[2025-09-23 06:14] LABS: Alanine Aminotransferase 23 U/L (0-31); Albumin Level 3.9 g/dL (3.5-5.0); Alkaline Phosphatase 91 U/L (39-117); Anion Gap 14 (12-20); Aspartate Amino Transferase 26 U/L (5-31); Blood Urea Nitrogen 17 mg/dL (9-16); Calcium 8.6 mg/dL (8.4-10.2); Carbon Dioxide 22 mmol/L (22-29); Chloride 111 mmol/L (96-108); Creatinine Clr Calc Pharmacy 45.5; Estimated Glomerular Filt Rate 55; Potassium 3.8 mmol/L (3.3-5.1); Sodium 143 mmol/L (135-145); Total Protein 6.4 g/dL (6.5-8.0)
--- NOTE | 2025-09-23 09:51 | PHA.MEDREC ---
Addendum entered by Abigail Higgins RPh 09/23/25 10:30: Reviewed by pharmacist, confirmed that patient is still taking metoprolol 25 mg bid, they are splitting the 50 mg tablet Original Note: Pharmacy Consult ? Medication Reconciliation Pharmacy has completed the medication reconciliation. Confirmed medication list with list from home and family member of patient who is in charge of medications.
--- NOTE | 2025-09-23 11:11 | PM.UROCN ---
History of Present Illness Consult details Consult date: 09/23/25 Narrative: 85-year-old female with a past medical history of HTN, HLD, [id number] hemiparesis, malignant melanoma, atrial fibrillation-on Eliquis presented to the hospital today with a chief complaint of nausea/vomiting/abdominal pain. Denies any fevers and chills. At baseline reported wheelchair-bound. Denies any chest pain or palpitations. Family at bedside. CTAP:5 mm stone in the proximal right ureter resulting in mild right hydronephrosis. Nonobstructing 15 x 8 mm stone in the lower pole of the right kidney. Review of Systems Review of Systems: Yes all other systems are reviewed and are negative Constitutional: Constitutional: Reports no additional constitutional complaints Eyes: Eyes: Reports no additional eye complaints ENT: Reports system reviewed and no additional complaints, except as documented Cardiovascular: Cardiovascular: Reports no additional cardiovascular complaints Respiratory: Respiratory: Reports no additional respiratory complaints Gastrointestinal: Gastrointestinal: Reports no additional gastrointestinal complaints Genitourinary: Genitourinary: Reports as per HPI Musculoskeletal: Musculoskeletal: Reports no additional musculoskeletal complaints Integumentary/Breasts: Skin/Breast: Reports system reviewed and no additional complaints, except as docu Neurologic: Reports system reviewed and no additional complaints, except as documented Psychiatric: Psychiatric: Reports no additional psychiatric complaints Endocrine: Endocrine: Reports no additional endocrine complaints Hematologic/Lymphatic: Hematologic/Lymphatic: Reports no additional hematologic/lymphatic complaints Allergic/Immunologic: Allergic/Immunologic: Reports no additional allergic/immunologic complaints PMFSH Past Medical History Medical History (Updated 09/23/25 @ 18:17 by Swathi Macias MD) Urinary tract infection Stroke Vitamin D deficiency Multifocal pneumonia Atrial fibrillation Pyuria Episode of syncope Syncope, vasovagal Right hemiparesis HLD (hyperlipidemia) Atrial fibrillation History of malignant melanoma History of basal cell carcinoma History of dysplastic nevus Degenerative joint disease (DJD) of hip Low back pain radiating to left lower extremity History of squamous cell carcinoma Venous insufficiency (chronic) (peripheral) Diarrhea Hypertension Family History Family History Father Throat cancer Mother Kidney failure Surgical History Surgical History H/O breast biopsy Hx of colonoscopy Hx of cholecystectomy Hx of appendectomy Social History Social History Household Members: Spouse and Family Housing: House Do you presently have visiting nurse or other home services: Yes ([employer]) Alcohol intake: current Alcohol intake frequency: 0-2 drinks per day Alcohol type: wine Comment: pt aware she needs to ask for help before getting up Patient Tobacco Use Status: Never used Tobacco Smoked in Last 30 Days: No Use of substances other than those prescribed or required for medical reasons: No Have you been hit, kicked, punched, or otherwise hurt by someone within the past year? If so, by whom?: No Do you feel safe in your current relationship?: Yes Is there a partner from a previous relationship who is making you feel unsafe now?: No Are you made to feel afraid or neglected: No [facility] Practices: [employer]. Advance Directives: Yes Advance Directives on File: Yes Advance Directives Date on File: 11/02/23 Do you have a plan to hurt others: No Plan Recently lost weight without trying: No Eating poorly because of decreased appetite: No Nutrition Risks: No Nutritional Risk Patient : No : No Poor oral hygiene: No service: No Meds Allergies Allergy/AdvReac Type Severity Reaction Status Date / Time codeine Allergy Unknown rash Verified 09/22/25 17:31 Penicillins AdvReac Hives Verified 09/22/25 17:31 terbinafine (From Lamisil) AdvReac Hives Verified 09/22/25 17:31 Active Medications: Current Medications Acetaminophen (Acetaminophen 325 Mg Tablet) 650 mg PO Q6H PRN PRN Reason: Pain, Mild 1-3,fever,headache Calcium Carbonate (Calcium Carbonate 750 Mg Tab.Chew) 750 mg PO Q4H PRN PRN Reason: Heartburn Lactated Ringer's (Lr) 1,000 mls @ 100 mls/hr IVCONT .Q10H [facility] Last Admin: 09/23/25 10:24 Dose: 100 mls/hr Ceftriaxone Sodium 1 gm/ (Sodium Chloride) 50 mls @ 100 mls/hr IV ONCE ONE Stop: 09/23/25 23:33 Magnesium Hydroxide (Milk Of Magnesia 30 Ml Oral.Susp) 30 ml PO DAILY PRN PRN Reason: Constipation Melatonin (Melatonin 3 Mg Tablet) 6 mg PO BEDTIME PRN PRN Reason: Insomnia Sodium Chloride (0.9 % Sodium Chloride Flush 3 Ml Syringe) 3 ml IVFLU QSHIFT [facility] Last Admin: 09/23/25 07:21 Dose: Not Given Home Medications ?Medication ?Instructions ?Recorded ?Confirmed ?Last Taken ?Type losartan 50 mg tablet 50 mg PO DAILY 10/01/23 09/23/25 09/22/25 History pantoprazole 40 mg tablet,delayed 40 mg PO DAILY@0630 10/01/23 09/23/25 09/22/25 History release apixaban 5 mg tablet (Eliquis) 5 mg PO BID 10/10/23 09/23/25 09/22/25 History melatonin 3 mg tablet 6 mg PO BEDTIME Sleep 10/10/23 09/23/25 09/21/25 History metoprolol tartrate 50 mg tablet 25 mg PO BID 10/21/23 09/23/25 09/22/25 History cranberry fruit 450 mg tablet 450 mg PO BID 12/08/23 09/23/25 09/22/25 History (cranberry) acetaminophen 500 mg tablet 1,000 mg PO TID PRN Pain 11/02/24 09/23/25 03/04/25 History amlodipine 2.5 mg tablet 2.5 mg PO DAILY 03/06/25 09/23/25 09/21/25 History nitrofurantoin 1 cap PO BID 03/06/25 09/23/25 09/22/25 History monohydrate/macrocrystals 100 mg capsule ascorbic acid (vitamin C) 500 mg 500 mg PO DAILY PRN cold and flu 09/23/25 09/23/25 09/23/25 History tablet (Vitamin C) symptoms zinc acetate 25 mg (zinc) capsule 25 mg PO DAILY PRN Cold and Flu 09/23/25 09/23/25 09/23/25 History Symptoms Physical Exam Vital Signs: Vital Signs: Last Vital Signs Temp 98 F 09/23/25 08:27 Pulse 70 09/23/25 08:27 Resp 16 09/23/25 08:27 BP 110/63 09/23/25 08:27 Pulse Ox 96 09/23/25 08:27 O2 Del Method Room Air 09/23/25 08:27 BMI result Body Mass Index 28.2 Const: General: cooperative, healthy appearing and no acute distress Orientation/consciousness: patient oriented x3 HEENT: Head: Yes normal to inspection, Yes normocephalic and Yes atraumatic Eyes: Conjunctivae: conjunctivae normal Neck: Neck: Yes normal visual inspection and Yes trachea midline Chest: Chest palpation & inspection: normal inspection of the chest Resp: Effort & Inspection: normal respiratory effort GI: Inspection: Yes normal to inspection Neuro: General: patient oriented x3 Psych: Appearance: grossly normal Results Labs 09/23/25 05:52 09/23/25 05:52 Labs: Abnormal lab results 09/22/25 09/22/25 09/23/25 Range/Units 18:55 21:44 05:52 WBC 24.8 H 18.1 H (4.8-10.8) X10*3/uL RBC 3.60 L (4.20-5.50) X10*6/uL Hgb 11.3 L (12.0-16.0) g/dl Hct 33.7 L (37.0-47.0) % Immature Gran % (Auto) 0.5 H (0.0-0.4) % Neut % (Auto) 92.8 H 88.7 H (45-73) % Lymph % (Auto) 2.4 L 5.6 L (20-40) % Lymph # (Auto) 0.6 L 1.0 L (1.2-4.9) X10*3/uL Abs Immat Gran (auto) 0.12 H 0.08 H (0.00-0.03) X10*3/uL Absolute Neuts (auto) 23.0 H 16.0 H (2.0-8.3) x10*3/uL PT 17.8 H (11.2-13.5) SEC INR 1.5 H (0.9-1.1) Chloride 111 H (96-108) mmol/L BUN 19 H 17 H (9-16) mg/dL Random Glucose 140 H 119 H (60-115) mg/dL Alkaline Phosphatase 120 H (39-117) U/L Total Protein 8.2 H 6.4 L (6.5-8.0) g/dL Ur Specific [place] >= 1.030 H (1.005-1.025) Urine Blood Large (3+) H (Negative) Ur Leukocyte Esterase Small (1+) H (Negative) Urine RBC >20 H (0-2) /HPF Urine WBC 11-20 H (0-5) /HPF Short CBC 09/22/25 09/23/25 Range/Units 18:55 05:52 WBC 24.8 H 18.1 H (4.8-10.8) X10*3/uL Hgb 13.7 11.3 L (12.0-16.0) g/dl Hct 40.1 33.7 L (37.0-47.0) % Plt Count 279 247 (160-400) X10*3/uL BMP 09/22/25 09/23/25 18:55 05:52 Sodium 143 143 Potassium 3.6 3.8 Chloride 107 111 H Carbon Dioxide 25 22 BUN 19 H 17 H Creatinine 0.94 0.96 Calcium 10.2 8.6 D Liver Function 09/22/25 09/23/25 Range/Units 18:55 05:52 Total Bilirubin 0.7 0.6 (0.0-1.0) mg/dL Direct Bilirubin 0.2 (0.0-0.5) mg/dL AST 30 26 (5-31) U/L ALT 28 23 (0-31) U/L Alkaline Phosphatase 120 H 91 (39-117) U/L Albumin 5.0 3.9 (3.5-5.0) g/dL Urine 09/22/25 Range/Units 21:44 Urine Color Yellow Urine Appearance Clear Urine pH 7.0 (5.0-9.0) Ur Specific [place] >= 1.030 H (1.005-1.025) Urine Protein Negative (Neg-Trace) mg/dL Urine Glucose (UA) Negative (Negative) mg/dL Imaging Abdomen CT scan report/results: report reviewed and image reviewed CT scan - pelvis: report reviewed and image reviewed Additional studies: Date of Service: 09/22/25 CT abdomen and pelvis with contrast Comparison: CT - CT ABDOMEN PELVIS W IV CON - 09/22/25 19:47 EST Findings: Lung bases are clear. No pleural effusion. Moderate cardiomegaly. Spleen, adrenal glands, pancreas and left kidney are unremarkable. Fatty infiltration of the liver is present. Right kidney is mildly enlarged and there is mild right hydronephrosis. In the proximal right ureter there appears to be a 5 mm stone, however there is motion artifact in this area which partially obscures the ureter. Distal right ureter is decompressed. There is also a nonobstructing 15 x 8 mm stone in the lower pole of the right kidney. No bowel obstruction, pneumoperitoneum, or pneumatosis. Uterus, adnexa and urinary bladder unremarkable. Appendix not visualized and may be absent. The bones are intact. Moderate degenerative changes of the left hip. No lytic or blastic bone lesions. No acute fracture deformity. IMPRESSION: 5 mm stone in the proximal right ureter resulting in mild right hydronephrosis. Nonobstructing 15 x 8 mm stone in the lower pole of the right kidney. Assessment and Plan (1) Right ureteral calculus: Status: Acute (2) Renal colic: Status: Acute (3) Hydronephrosis, right: Status: Acute (4) Urinary tract infection: Status: Acute Plan diet as tolerated today, NPO MN Add on for Wednesday, right ureteral stent Procedures Date of Service Date of Service: 09/23/25
[2025-09-23 14:09] LABS: Chlamydia pneumoniae PCR Not Detected (Not Detect.); Coronavirus 229E PCR Not Detected (Not Detect.); Coronavirus HKU1 PCR Not Detected (Not Detect.); Coronavirus NL63 PCR Not Detected (Not Detect.); Coronavirus OC43 PCR Not Detected (Not Detect.); RSV PCR Not Detected (Not Detect.); Rhino/Enterovirus PCR Not Detected (Not Detect.)
[2025-09-23 14:10] LABS: Influenza A H1 PCR Not Detected (Not Detect.); Influenza A H1-2009 PCR Not Detected (Not Detect.); Influenza A H3 PCR Not Detected (Not Detect.); SARS-CoV-2 PCR Not Detected (Not Detect.)
--- NOTE | 2025-09-23 16:05 | HO.PM.IMPN ---
Subjective Subjective Date of Service: 09/23/25 Interval History: The pt pleasantly confused, overall a poor historian Family at bedside reports she had an episode of vomiting and then syncopized while sitting at the table Pt apparently has been weak, recently treated for UTI Family has noted some blood in the urine Currently pt denies any abdominal or flank pain Review of Systems Review of Systems: Yes Unobtainable due to mental status Physical Exam Exam: Exam: General: Awake and alert, oriented primarily to self. In no acute distress Resp: CTA bilaterally CVS: S1, S2, RRR GI: +BS, NT, no distention Back: No CVA tenderness Skin: Warm, dry Neuro: Cranial nerves II-XII grossly intact bilaterally. Motor grossly intact bilaterally Extremities: No edema Psych: Pleasantly confused Vital Signs: Vital Signs: Last Vital Signs Temp 98.0 F 09/23/25 12:45 Pulse 70 09/23/25 12:45 Resp 16 09/23/25 12:45 BP 131/63 09/23/25 12:45 Pulse Ox 94 09/23/25 12:45 O2 Del Method Room Air 09/23/25 12:00 BMI result Body Mass Index 33.2 Objective Data Active Medications Acetaminophen (Acetaminophen 325 Mg Tablet) 650 mg PO Q6H PRN PRN Reason: Pain, Mild 1-3,fever,headache Calcium Carbonate (Calcium Carbonate 750 Mg Tab.Chew) 750 mg PO Q4H PRN PRN Reason: Heartburn Lactated Ringer's (Lr) 1,000 mls @ 100 mls/hr IVCONT .Q10H [facility] Last Admin: 09/23/25 10:24 Dose: 100 mls/hr Documented By: OSWALD Ceftriaxone Sodium 1 gm/ (Sodium Chloride) 50 mls @ 100 mls/hr IV ONCE ONE Stop: 09/23/25 23:33 Magnesium Hydroxide (Milk Of Magnesia 30 Ml Oral.Susp) 30 ml PO DAILY PRN PRN Reason: Constipation Melatonin (Melatonin 3 Mg Tablet) 6 mg PO BEDTIME PRN PRN Reason: Insomnia Sodium Chloride (0.9 % Sodium Chloride Flush 3 Ml Syringe) 3 ml IVFLUSH QSHIFT [facility] Last Admin: 09/23/25 07:21 Dose: Not Given Documented By: OSWALD Non-Admin Reason: IV Running Labs 09/23/25 05:52 09/23/25 05:52 Labs: Laboratory Results - last 24 hr 09/22/25 09/22/25 09/22/25 18:55 18:55 21:44 MCV 92.8 MCH 31.7 MCHC 34.2 RDW 13.4 Plt Count 279 MPV 10.3 Immature Gran % (Auto) 0.5 H Neut % (Auto) 92.8 H Lymph % (Auto) 2.4 L [place] % (Auto) 3.6 Eos % (Auto) 0.4 Baso % (Auto) 0.3 Lymph # (Auto) 0.6 L [place] # (Auto) 0.9 Eos # (Auto) 0.1 Baso # (Auto) 0.1 Abs Immat Gran (auto) 0.12 H Absolute Neuts (auto) 23.0 H Absolute Nucleated RBC 0.000 Nucleated RBC % (auto) 0.0 Smear Tech's Comments VERIFIED PT 17.8 H INR 1.5 H Anion Gap 15 Estim Creat Clear Calc 46.4 Estimated GFR 57 Random Glucose 140 H Lactic Acid Calcium 10.2 Total Bilirubin 0.7 Direct Bilirubin 0.2 AST 30 ALT 28 Alkaline Phosphatase 120 H Troponin I High Sens 5.4 Total Protein 8.2 H Albumin 5.0 Lipase 14 TSH 2.07 Cancelled Urine Color Yellow Urine Appearance Clear Urine pH 7.0 Ur Specific [place] >= 1.030 H Urine Protein Negative Urine Glucose (UA) Negative Urine Ketones Trace Urine Blood Large (3+) H Urine Nitrite Negative Ur Leukocyte Esterase Small (1+) H Urine RBC >20 H Urine WBC 11-20 H Ur Squamous Epith Cells 0-2 Urine Bacteria None Seen Hyaline Casts 0-2 Respiratory Panel [place] Adenovirus (Rapid PCR) B.pert (TEM-PCR) B.parapertussis DNA PCR C. pneumoniae DNA (PCR) Coronavirus OC43 (PCR) Coronavirus HKU1 (PCR) Coronavirus 229E (PCR) Coronavirus NL63 (PCR) Human Metapneumovir PCR Influenza A (RT-PCR) Influenza A (H1) PCR Influ A (H1) PCR Influenza A (H3) PCR Influenza B (RT-PCR) M. pneumoniae (PCR) Parainfluenza 1 (PCR) Parainfluenza 2 (PCR) Parainfluenza 3 (PCR) Parainfluenza 4 (PCR) RSV (PCR) Entero/Rhino (PCR) SARS-CoV-2 RNA (RT-PCR) 09/23/25 09/23/25 09/23/25 01:02 05:52 13:00 MCV 93.6 MCH 31.4 MCHC 33.5 RDW 13.8 Plt Count 247 MPV 10.0 Immature Gran % (Auto) 0.4 Neut % (Auto) 88.7 H Lymph % (Auto) 5.6 L [place] % (Auto) 4.4 Eos % (Auto) 0.6 Baso % (Auto) 0.3 Lymph # (Auto) 1.0 L [place] # (Auto) 0.8 Eos # (Auto) 0.1 Baso # (Auto) 0.1 Abs Immat Gran (auto) 0.08 H Absolute Neuts (auto) 16.0 H Absolute Nucleated RBC 0.000 Nucleated RBC % (auto) 0.0 Smear Tech's Comments PT INR Anion Gap 14 Estim Creat Clear Calc 45.5 Estimated GFR 55 Random Glucose 119 H Lactic Acid 1.7 Calcium 8.6 D Total Bilirubin 0.6 Direct Bilirubin AST 26 ALT 23 Alkaline Phosphatase 91 Troponin I High Sens Total Protein 6.4 L Albumin 3.9 Lipase TSH Urine Color Urine Appearance Urine pH Ur Specific [place] Urine Protein Urine Glucose (UA) Urine Ketones Urine Blood Urine Nitrite Ur Leukocyte Esterase Urine RBC Urine WBC Ur Squamous Epith Cells Urine Bacteria Hyaline Casts Respiratory Panel [place] See Note Adenovirus (Rapid PCR) Not Detected B.pert (TEM-PCR) Not Detected B.parapertussis DNA PCR Not Detected C. pneumoniae DNA (PCR) Not Detected Coronavirus OC43 (PCR) Not Detected Coronavirus HKU1 (PCR) Not Detected Coronavirus 229E (PCR) Not Detected Coronavirus NL63 (PCR) Not Detected Human Metapneumovir PCR Not Detected Influenza A (RT-PCR) Not Detected Influenza A (H1) PCR Not Detected Influ A (H1/09) PCR Not Detected Influenza A (H3) PCR Not Detected Influenza B (RT-PCR) Not Detected M. pneumoniae (PCR) Not Detected Parainfluenza 1 (PCR) Not Detected Parainfluenza 2 (PCR) Not Detected Parainfluenza 3 (PCR) Not Detected Parainfluenza 4 (PCR) Not Detected RSV (PCR) Not Detected Entero/Rhino (PCR) Not Detected SARS-CoV-2 RNA (RT-PCR) Not Detected Microbiology Microbiology Results: Microbiology 09/22/25 21:47 Urine Culture - Preliminary Urine clean catch - Clean Catch Midstream Culture in progress. Assessment and Plan (1) Right ureteral calculus: Status: Acute Plan 85-year-old female with a past medical history of HTN, HLD, [id number] hemiparesis, malignant melanoma, atrial fibrillation-on Eliquis presented to the hospital today with a chief complaint of nausea/vomiting/abdominal pain. Admitted for following: UTI in setting of obstructing right ureteral calculus with mild hydronephrosis Continue ceftriaxone, started 09/22 Pain control Flomax Gentle IV fluids Urology following, plan on ureteral stenting on Wednesday NPO past midnight Near-syncope: Pt with episode of vomiting and near-syncope Likely in the setting of above Orthostatic vitals when possible Gentle IV fluids Will hold off on additional syncopal testing (echo, cardiology consult) for now HX CVA: Has baseline right-sided weakness. Chronic. HX AFib: Continue home Eliquis, metoprolol HTN Continue amlodipine, losartan, metoprolol GERD Continue PPI DVT prophylaxis: Patient on Eliquis Code status: Full code Pt require continued hospitalization she will undergo right ureteral stenting obstructing renal calculus. Quality Stroke Does the patient have a stroke diagnosis?: No VTE Prior VTE?: No VTE Risk Level:: Medical - moderate - high VTE Device Contraindication: Treatment Not Indicated VTE Drug Contraindication: N/A - Med Ordered
[2025-09-24] VITALS (11 sets, daily range): BP systolic 129–158; BP diastolic 59–79; PULSE 64–95; RESP 16–19; TEMP 36.2–37.9; O2SAT 92–96
[2025-09-24] MEDS: Lactated Ringers 1,000 ML 100 ML IVCONT ×2 (07:10→23:30)
--- NOTE | 2025-09-24 07:14 | P.PNIM_ITS ---
Subjective Subjective Date of Service: 09/24/25 Interval History: Patient to get a stent today Review of Systems Review of Systems: Yes all other systems are reviewed and are negative Physical Exam 2 Exam: Exam: General: Awake and alert, oriented primarily to self. In no acute distress Resp: CTA bilaterally CVS: S1, S2, RRR GI: +BS, NT, no distention Psych: Pleasantly confused Vital Signs: Vital Signs: Last Vital Signs Temp 98.3 F 09/24/25 03:04 Pulse 64 09/24/25 03:04 Resp 17 09/24/25 03:04 BP 149/70 H 09/24/25 03:04 Pulse Ox 94 09/24/25 03:04 O2 Del Method Room Air 09/24/25 03:04 BMI result Body Mass Index 33.2 Objective Data Active Medications Acetaminophen (Acetaminophen 325 Mg Tablet) 650 mg PO Q6H PRN PRN Reason: Pain, Mild 1-3,fever,headache Amlodipine Besylate (Amlodipine Besylate 2.5 Mg Tablet) 2.5 mg PO DAILY [facility]; Protocol Apixaban (Apixaban 5 Mg Tablet) 5 mg PO BID [facility] Last Admin: 09/23/25 20:14 Dose: 5 mg Documented By: CAMILO Ascorbic Acid (Ascorbic Acid 500 Mg Tablet) 500 mg PO DAILY PRN PRN Reason: cold and flu symptoms Calcium Carbonate (Calcium Carbonate 750 Mg Tab.Chew) 750 mg PO Q4H PRN PRN Reason: Heartburn Gabapentin (Gabapentin 100 Mg Capsule) 200 mg PO BEDTIME [facility] Last Admin: 09/23/25 20:14 Dose: 200 mg Documented By: CAMILO Lactated Ringer's (Lr) 1,000 mls @ 100 mls/hr IVCONT .Q10H [facility] Last Admin: 09/24/25 07:10 Dose: 100 mls/hr Documented By: CAMILO Ceftriaxone Sodium 1 gm/ (Sodium Chloride) 50 mls @ 100 mls/hr IV Q24H [facility] Last Infusion: 09/23/25 18:19 Dose: Infused Documented By: DEBI Losartan Potassium (Losartan Potassium 50 Mg Tablet) 50 mg PO DAILY [facility]; Protocol Magnesium Hydroxide (Milk Of Magnesia 30 Ml Oral.Susp) 30 ml PO DAILY PRN PRN Reason: Constipation Melatonin (Melatonin 3 Mg Tablet) 6 mg PO BEDTIME PRN PRN Reason: Insomnia Metoprolol Tartrate (Metoprolol Tartrate 25 Mg Tablet) 25 mg PO BID [facility]; Protocol Last Admin: 09/23/25 20:14 Dose: 25 mg Documented By: CAMILO Pantoprazole Sodium (Pantoprazole Sodium 20 Mg Tablet.Dr) 40 mg PO DAILY@0630 [facility] Last Admin: 09/24/25 05:31 Dose: 40 mg Documented By: CAMILO Sodium Chloride (0.9 % Sodium Chloride Flush 3 Ml Syringe) 3 ml IVFLUSH QSHIFT [facility] Last Admin: 09/23/25 20:15 Dose: Not Given Documented By: CAMILO Non-Admin Reason: IV Running Tamsulosin HCl (Tamsulosin Hcl 0.4 Mg Capsule) 0.4 mg PO DAILY [facility] Last Admin: 09/23/25 17:46 Dose: 0.4 mg Documented By: DEBI Labs 09/23/25 05:52 09/23/25 05:52 Labs: Laboratory Results - last 24 hr 09/23/25 13:00 Respiratory Panel [place] See Note Adenovirus (Rapid PCR) Not Detected B.pert (TEM-PCR) Not Detected B.parapertussis DNA PCR Not Detected C. pneumoniae DNA (PCR) Not Detected Coronavirus OC43 (PCR) Not Detected Coronavirus HKU1 (PCR) Not Detected Coronavirus 229E (PCR) Not Detected Coronavirus NL63 (PCR) Not Detected Human Metapneumovir PCR Not Detected Influenza A (RT-PCR) Not Detected Influenza A (H1) PCR Not Detected Influ A (H1/09) PCR Not Detected Influenza A (H3) PCR Not Detected Influenza B (RT-PCR) Not Detected M. pneumoniae (PCR) Not Detected Parainfluenza 1 (PCR) Not Detected Parainfluenza 2 (PCR) Not Detected Parainfluenza 3 (PCR) Not Detected Parainfluenza 4 (PCR) Not Detected RSV (PCR) Not Detected Entero/Rhino (PCR) Not Detected SARS-CoV-2 RNA (RT-PCR) Not Detected Microbiology Microbiology Results: Microbiology 09/23/25 01:02 Blood Culture - Preliminary Blood - Venous No growth after 24 hours. 09/23/25 01:02 Blood Culture - Preliminary Blood - Venous No growth after 24 hours. 09/22/25 21:47 Urine Culture - Preliminary Urine clean catch - Clean Catch Midstream Culture in progress. Assessment and Plan (1) Right ureteral calculus: Status: Acute Plan 85-year-old female with a past medical history of HTN, HLD, [id number] hemiparesis, malignant melanoma, atrial fibrillation-on Eliquis presented to the hospital today with a chief complaint of nausea/vomiting/abdominal pain. Admitted for following: UTI in setting of obstructing right ureteral calculus with mild hydronephrosis Continue ceftriaxone, started / Pain control Flomax Gentle IV fluids Urology following, plan on ureteral stenting today Near-syncope: Pt with episode of vomiting and near-syncope Likely in the setting of above Orthostatic vitals when possible Gentle IV fluids Will hold off on additional syncopal testing (echo, cardiology consult) for now HX CVA: Has baseline right-sided weakness. Chronic. HX AFib: Continue home Eliquis, metoprolol HTN Continue amlodipine, losartan, metoprolol GERD Continue PPI DVT prophylaxis: Patient on Eliquis Code status: Full code Pt require continued hospitalization she will undergo right ureteral stenting obstructing renal calculus today Quality Stroke Does the patient have a stroke diagnosis?: No VTE Prior VTE?: No VTE Risk Level:: Medical - moderate - high VTE Device Contraindication: Treatment Not Indicated VTE Drug Contraindication: N/A - Med Ordered
--- NOTE | 2025-09-24 08:02 | P.CONAN_ITS ---
Documented by User: Deyanira Rogers NP 09/24/25 08:51 HPI - Anesthesia Eval Consult details Narrative: 85 yr old female for right Cystoscopy Ureteroscopy, with Stent Placement DNR/DNI H/O CVA: chronic right sided weakness Afib: on eliquis PMFSH Active Problems Active Problems: All Active Problems Urinary tract infection (Acute) Hydronephrosis, right (Acute) Right ureteral calculus (Acute) Pneumonia (Acute) Renal colic (Acute) Near syncope (Acute) Foot pain, bilateral (Acute) Positive KEVIN (antinuclear antibody) (Acute) Sensorimotor neuropathy (Acute) COVID (Acute) Pneumonia (Acute) Hypoxia (Acute) Syncope (Acute) Venous insufficiency (chronic) (peripheral) (Acute) Paroxysmal atrial fibrillation (Acute) Leg cramps (Acute) Anemia (Acute) Paresthesia of both lower extremities (Acute) Pyuria (Acute) Diarrhea (Acute) Hypokalemia (Acute) C. difficile diarrhea (Acute) Dysarthria (Acute) History of ischemic left MCA stroke (Acute) Past Medical History Medical History (Updated 09/23/25 @ 18:17 by Swathi Macias MD) Urinary tract infection Stroke Vitamin D deficiency Multifocal pneumonia Atrial fibrillation Pyuria Episode of syncope Syncope, vasovagal Right hemiparesis HLD (hyperlipidemia) Atrial fibrillation History of malignant melanoma History of basal cell carcinoma History of dysplastic nevus Degenerative joint disease (DJD) of hip Low back pain radiating to left lower extremity History of squamous cell carcinoma Venous insufficiency (chronic) (peripheral) Diarrhea Hypertension Family History Family History Father Throat cancer Mother Kidney failure Family history of problems with anesthesia: No Surgical History Surgical History H/O breast biopsy Hx of colonoscopy Hx of cholecystectomy Hx of appendectomy History of Problems with Anesthesia: No Social History Social History Household Members: Spouse and Family Housing: House Do you presently have visiting nurse or other home services: Yes ([employer]) Alcohol intake: current Alcohol intake frequency: does not drink Alcohol type: wine Comment: pt aware she needs to ask for help before getting up Patient Tobacco Use Status: Never used Tobacco Smoked in Last 30 Days: No Use of substances other than those prescribed or required for medical reasons: No Currently Displaying Signs/Symptoms of Drug Intoxication Withdrawal: No Have you been hit, kicked, punched, or otherwise hurt by someone within the past year? If so, by whom?: No Do you feel safe in your current relationship?: Yes Is there a partner from a previous relationship who is making you feel unsafe now?: No Are you made to feel afraid or neglected: No Orthodoxy Healthcare Practices: Mandaeism. Are you DNR?: No Advance Directives: Yes Advance Directives on File: Yes Advance Directives Date on File: 11/02/23 Do you have a plan to hurt others: No Plan Recently lost weight without trying: No Eating poorly because of decreased appetite: No Nutrition Risks: No Nutritional Risk Patient : No : No Poor oral hygiene: No service: No Meds Allergies Allergy/AdvReac Type Severity Reaction Status Date / Time codeine Allergy Unknown rash Verified 09/22/25 17:31 Penicillins AdvReac Hives Verified 09/22/25 17:31 terbinafine (From Lamisil) AdvReac Hives Verified 09/22/25 17:31 Active Medications: Current Medications Acetaminophen (Acetaminophen 325 Mg Tablet) 650 mg PO Q6H PRN PRN Reason: Pain, Mild 1-3,fever,headache Amlodipine Besylate (Amlodipine Besylate 2.5 Mg Tablet) 2.5 mg PO DAILY [facility]; Protocol Apixaban (Apixaban 5 Mg Tablet) 5 mg PO BID [facility] Last Admin: 09/23/25 20:14 Dose: 5 mg Ascorbic Acid (Ascorbic Acid 500 Mg Tablet) 500 mg PO DAILY PRN PRN Reason: cold and flu symptoms Calcium Carbonate (Calcium Carbonate 750 Mg Tab.Chew) 750 mg PO Q4H PRN PRN Reason: Heartburn Gabapentin (Gabapentin 100 Mg Capsule) 200 mg PO BEDTIME [facility] Last Admin: 09/23/25 20:14 Dose: 200 mg Lactated Ringer's (Lr) 1,000 mls @ 100 mls/hr IVCONT .Q10H [facility] Last Admin: 09/24/25 07:10 Dose: 100 mls/hr Ceftriaxone Sodium 1 gm/ (Sodium Chloride) 50 mls @ 100 mls/hr IV Q24H [facility] Last Infusion: 09/23/25 18:19 Dose: Infused Losartan Potassium (Losartan Potassium 50 Mg Tablet) 50 mg PO DAILY [facility]; Protocol Magnesium Hydroxide (Milk Of Magnesia 30 Ml Oral.Susp) 30 ml PO DAILY PRN PRN Reason: Constipation Melatonin (Melatonin 3 Mg Tablet) 6 mg PO BEDTIME PRN PRN Reason: Insomnia Metoprolol Tartrate (Metoprolol Tartrate 25 Mg Tablet) 25 mg PO BID [facility]; Protocol Last Admin: 09/23/25 20:14 Dose: 25 mg Pantoprazole Sodium (Pantoprazole Sodium 20 Mg Tablet.Dr) 40 mg PO DAILY@629 [facility] Last Admin: 09/24/25 05:31 Dose: 40 mg Sodium Chloride (0.9 % Sodium Chloride Flush 3 Ml Syringe) [facility] Admin: 09/23/25 20:15 Dose: Not Given Tamsulosin HCl (Tamsulosin Hcl 0.4 Mg Capsule) 0.4 mg PO DAILY [facility] Last Admin: 09/23/25 17:46 Dose: 0.4 mg Home Medications ?Medication ?Instructions ?Recorded ?Confirmed ?Last Taken ?Type losartan 50 mg tablet 50 mg PO DAILY 10/01/23 1205/1109/22/25 History pantoprazole 40 mg tablet,delayed 40 mg PO DAILY@0630 10/01/23 09/23/25 09/22/25 History release apixaban 5 mg tablet (Eliquis) 5 mg PO BID 10/10/2309/22/25 History melatonin 3 mg tablet 6 mg PO BEDTIME Sleep 09/23/25 09/21/25 History metoprolol tartrate 50 mg tablet 25 mg PO BID 10/21/23 09/23/25 09/22/25 History cranberry fruit 450 mg tablet 450 mg PO BID 12/08/23 1 11/24/24 09/22/25 History (cranberry) acetaminophen 500 mg tablet 1,000 mg PO TID PRN Pain 0 11/02/24 09/23/25 03/04/25 History amlodipine 2.5 mg tablet 2.5 mg PO DAILY 03/06/2505/1109/21/25 History nitrofurantoin 1 cap PO BID 03/06/2509/22/25 History monohydrate/macrocrystals 100 mg capsule ascorbic acid (vitamin C) 500 mg 500 mg PO DAILY PRN c old and flu 09/23/25 09/23/25 09/23/25 History tablet (Vitamin C) symptoms zinc acetate 25 mg (zinc) capsule 25 mg PO DAILY PRN C old and Flu 09/23/25 09/23/25 09/23/25 History Symptoms Exam Height,Weight and Vital Signs: Height 5 ft 3 in Weight 85.1 kg Last Vital Signs Temp 97.1 F 09/24/25 07:15 Pulse 64 09/24/25 07:15 Resp 18 09/24/25 07:15 BP 135/67 09/24/25 07:15 Pulse Ox 92 09/24/25 07:15 O2 Del Method Room Air 09/24/25 07:15 Pertinent Lab Results Pertinent Lab Results: Laboratory Tests 09/22/25 09/22/25 09/22/25 18:55 18:55 21:44 WBC 24.8 H RBC 4.32 Hgb 13.7 Hct 40.1 MCV 92.8 MCH 31.7 MCHC 34.2 RDW 13.4 Plt Count 279 MPV 10.3 Immature Gran % (Auto) 0.5 H Neut % (Auto) 92.8 H Lymph % (Auto) 2.4 L [place] % (Auto) 3.6 Eos % (Auto) 0.4 Baso % (Auto) 0.3 Lymph # (Auto) 0.6 L [place] # (Auto) 0.9 Eos # (Auto) 0.1 Baso # (Auto) 0.1 Abs Immat Gran (auto) 0.12 H Absolute Neuts (auto) 23.0 H Absolute Nucleated RBC 0.000 Nucleated RBC % (auto) 0.0 Smear Tech's Comments VERIFIED PT 17.8 H INR 1.5 H Sodium 143 Potassium 3.6 Chloride 107 Carbon Dioxide 25 Anion Gap 15 BUN 19 H Creatinine 0.94 Estim Creat Clear Calc 46.4 Estimated GFR 57 Random Glucose 140 H Lactic Acid Calcium 10.2 Total Bilirubin 0.7 Direct Bilirubin 0.2 AST 30 ALT 28 Alkaline Phosphatase 120 H Troponin I High Sens 5.4 Total Protein 8.2 H Albumin 5.0 Lipase 14 TSH 2.07 Cancelled Urine Color Yellow Urine Appearance Clear Urine pH 7.0 Ur Specific [place] >= 1.030 H Urine Protein Negative Urine Glucose (UA) Negative Urine Ketones Trace Urine Blood Large (3+) H Urine Nitrite Negative Ur Leukocyte Esterase Small (1+) H Urine RBC >20 H Urine WBC 11-20 H Ur Squamous Epith Cells 0-2 Urine Bacteria None Seen Hyaline Casts 0-2 Respiratory Panel [place] Adenovirus (Rapid PCR) B.pert (TEM-PCR) B.parapertussis DNA PCR C. pneumoniae DNA (PCR) Coronavirus OC43 (PCR) Coronavirus HKU1 (PCR) Coronavirus 229E (PCR) Coronavirus NL63 (PCR) Human Metapneumovir PCR Influenza A (RT-PCR) Influenza A (H1) PCR Influ A (H1/09) PCR Influenza A (H3) PCR Influenza B (RT-PCR) M. pneumoniae (PCR) Parainfluenza 1 (PCR) Parainfluenza 2 (PCR) Parainfluenza 3 (PCR) Parainfluenza 4 (PCR) RSV (PCR) Entero/Rhino (PCR) SARS-CoV-2 RNA (RT-PCR) 09/23/25 09/23/25 09/23/25 01:02 05:52 13:00 WBC 18.1 H RBC 3.60 L Hgb 11.3 L Hct 33.7 L MCV 93.6 MCH 31.4 MCHC 33.5 RDW 13.8 Plt Count 247 MPV 10.0 Immature Gran % (Auto) 0.4 Neut % (Auto) 88.7 H Lymph % (Auto) 5.6 L [place] % (Auto) 4.4 Eos % (Auto) 0.6 Baso % (Auto) 0.3 Lymph # (Auto) 1.0 L [place] # (Auto) 0.8 Eos # (Auto) 0.1 Baso # (Auto) 0.1 Abs Immat Gran (auto) 0.08 H Absolute Neuts (auto) 16.0 H Absolute Nucleated RBC 0.000 Nucleated RBC % (auto) 0.0 Smear Tech's Comments PT INR Sodium 143 Potassium 3.8 Chloride 111 H Carbon Dioxide 22 Anion Gap 14 BUN 17 H Creatinine 0.96 Estim Creat Clear Calc 45.5 Estimated GFR 55 Random Glucose 119 H Lactic Acid 1.7 Calcium 8.6 D Total Bilirubin 0.6 Direct Bilirubin AST 26 ALT 23 Alkaline Phosphatase 91 Troponin I High Sens Total Protein 6.4 L Albumin 3.9 Lipase TSH Urine Color Urine Appearance Urine pH Ur Specific [place] Urine Protein Urine Glucose (UA) Urine Ketones Urine Blood Urine Nitrite Ur Leukocyte Esterase Urine RBC Urine WBC Ur Squamous Epith Cells Urine Bacteria Hyaline Casts Respiratory Panel [place] See Note Adenovirus (Rapid PCR) Not Detected B.pert (TEM-PCR) Not Detected B.parapertussis DNA PCR Not Detected C. pneumoniae DNA (PCR) Not Detected Coronavirus OC43 (PCR) Not Detected Coronavirus HKU1 (PCR) Not Detected Coronavirus 229E (PCR) Not Detected Coronavirus NL63 (PCR) Not Detected Human Metapneumovir PCR Not Detected Influenza A (RT-PCR) Not Detected Influenza A (H1) PCR Not Detected Influ A (H1/09) PCR Not Detected Influenza A (H3) PCR Not Detected Influenza B (RT-PCR) Not Detected M. pneumoniae (PCR) Not Detected Parainfluenza 1 (PCR) Not Detected Parainfluenza 2 (PCR) Not Detected Parainfluenza 3 (PCR) Not Detected Parainfluenza 4 (PCR) Not Detected RSV (PCR) Not Detected Entero/Rhino (PCR) Not Detected SARS-CoV-2 RNA (RT-PCR) Not Detected Narrative Narrative: EKG 09/2025 Vent. Rate : 97 BPM Atrial Rate : * BPM P-R Int : * ms QRS Dur : 82 ms QT Int : 302 ms P-R-T Axes : * 29 203 degrees QTcB Int : 383 ms Atrial fibrillation Nonspecific ST and T wave abnormality Abnormal ECG When compared with ECG of 05-Mar-2025 09:58, QT has shortened Airway Mallampati Class: III TM Dist: >3cm Neck ROM: Limited Loose/Missing/Broken Teeth: No Assessment and Plan Final Anesthetic Review Family History of Problems with Anesthesia: No History of Problems with Anesthesia: No Documented by User: Brett Dupree MD 09/24/25 17:58 [facility] Past Medical History Medical History (Updated 09/23/25 @ 18:17 by Swathi Macias MD) Urinary tract infection Stroke Vitamin D deficiency Multifocal pneumonia Atrial fibrillation Pyuria Episode of syncope Syncope, vasovagal Right hemiparesis HLD (hyperlipidemia) Atrial fibrillation History of malignant melanoma History of basal cell carcinoma History of dysplastic nevus Degenerative joint disease (DJD) of hip Low back pain radiating to left lower extremity History of squamous cell carcinoma Venous insufficiency (chronic) (peripheral) Diarrhea Hypertension Family History Family History Father Throat cancer Mother Kidney failure Surgical History Surgical History H/O breast biopsy Hx of colonoscopy Hx of cholecystectomy Hx of appendectomy Social History Social History Household Members: Spouse and Family Housing: House Do you presently have visiting nurse or other home services: Yes ([employer]) Alcohol intake: current Alcohol intake frequency: does not drink Alcohol type: wine Comment: pt aware she needs to ask for help before getting up Patient Tobacco Use Status: Never used Tobacco Smoked in Last 30 Days: No Use of substances other than those prescribed or required for medical reasons: No Currently Displaying Signs/Symptoms of Drug Intoxication Withdrawal: No Have you been hit, kicked, punched, or otherwise hurt by someone within the past year? If so, by whom?: No Do you feel safe in your current relationship?: Yes Is there a partner from a previous relationship who is making you feel unsafe now?: No Are you made to feel afraid or neglected: No Orthodoxy Healthcare Practices: Mandaeism. Are you DNR?: No Advance Directives: Yes Advance Directives on File: Yes Advance Directives Date on File: 11/02/23 Do you have a plan to hurt others: No Plan Recently lost weight without trying: No Eating poorly because of decreased appetite: No Nutrition Risks: No Nutritional Risk Patient : No : No Poor oral hygiene: No service: No Meds Allergies Allergy/AdvReac Type Severity Reaction Status Date / Time codeine Allergy Unknown rash Verified 09/22/25 17:31 Penicillins AdvReac Hives Verified 09/22/25 17:31 terbinafine (From Lamisil) AdvReac Hives Verified 09/22/25 17:31 Home Medications ?Medication ?Instructions ?Recorded ?Confirmed ?Last Taken ?Type losartan 50 mg tablet 50 mg PO DAILY 10/01/2305/1109/22/25 History pantoprazole 40 mg tablet,delayed 40 mg PO DAILY@0630 10/01/23 09/23/25 09/22/25 History release apixaban 5 mg tablet (Eliquis) 5 mg PO BID 10/10/2309/22/25 History melatonin 3 mg tablet 6 mg PO BEDTIME Sleep 09/23/25 09/21/25 History metoprolol tartrate 50 mg tablet 25 mg PO BID 10/21/23 09/23/25 09/22/25 History cranberry fruit 450 mg tablet 450 mg PO BID 12/08/23 1 11/24/24 09/22/25 History (cranberry) acetaminophen 500 mg tablet 1,000 mg PO TID PRN Pain 0 11/02/24 09/23/25 03/04/25 History amlodipine 2.5 mg tablet 2.5 mg PO DAILY 03/06/2505/1109/21/25 History nitrofurantoin 1 cap PO BID 03/06/2509/22/25 History monohydrate/macrocrystals 100 mg capsule ascorbic acid (vitamin C) 500 mg 500 mg PO DAILY PRN c old and flu 09/23/25 09/23/25 09/23/25 History tablet (Vitamin C) symptoms zinc acetate 25 mg (zinc) capsule 25 mg PO DAILY PRN C old and Flu 09/23/25 09/23/25 09/23/25 History Symptoms Exam Airway Heart: Afib. No echo. Lungs: ok Assessment and Plan Assessment Anesthesia Assessment: Anesthesia Plan Discussed and Chart Reviewed Final Anesthetic Review NPO: Yes ASA Class: IV Final Preanesthetic Review: No Changes in Pt Med Stat, Meds/Allgs Chart Reviewed, Consent Obtained/Reviewed, Anes Risks/Benef Reviewed and DNR Form (If Appl.) Patient Risk: High Procedure Risk: Low Anesthetic Plan Anesthetic Plan: MAC:, Agree w/ Assess. and Plan and TIVA Disposition: Standard PACU
--- NOTE | 2025-09-24 09:55 | HO.WOUND ---
Wound Consult: Initial 85yr old female admitted to [facility] [place] on 09/23/25 - See progress notes and H&P for detailed history. Wound consult placed for folds/buttocks. Patient agreeable to assessment and photo documentation. Patient reports she uses desitin at home for breast and abdominal folds, she reports she has seen a mental health aides teacher before and has also used a medicated powder. she reports recent increased use in incontinence briefs at home. Buttocks Etiology: MASD - intact blanchable redness Present on Admission Wound Bed: intact blanchable redness Drainage / Odor: none Tiny wound: ? No Induration, Fluctuance or Warmth noted Pain: none Goals of Treatment: ? barrier cream bilateral breasts and abdominal folds with mild intertriginous dermatitis - moist and reddened skin with satellite lesions. TT to provider for antifugal powder. Recommendations: 1. Turn and Reposition every 2 hours and as needed for patient comfort. Use pillows or wedges to support off loading positions. 2. Off Load all bony prominences with use of pillows and heel boots if needed. Apply Preventative foams where needed. 3. Monitor for incontinence and moisture control, use barrier creams when needed for prevention and treatment. 4. Provide adequate and supplemental nutrition. 5. Order or Continue low air loss mattress. 6. When applicable maintain blood glucose levels per Providers order. Buttocks: Off Load Pressure with Q2 hr turns and use of pillows - Cleanse with PH balance spray or wipes, pat dry. ?Apply thin layer of barrier cream to affected area. Apply twice daily and Reapply thin layer PRN after each episode of incontinence. Abdomen/breast folds: assess all skin folds daily. routine gentle cleansing of skin folds, avoid scrubbing, pat area dry. avoid placing products in skin folds that hold moisture against the skin. apply antifungal medication per provider orders, use only a light dusting to prevent caking. insert interdry ag into skin folds leaving 2-3 exposed to promote moisture wicking and evaporation. Re-consult wound care Nurse for wound deterioration or wound changes.
--- NOTE | 2025-09-24 14:02 | MHC.CM.PN ---
CM MET WITH PT AND SON AT BEDSIDE PT LIVES WITH HER AND TWO SONS SHE HAS 34.15 [employer] HOURS PER WEEK FROM [employer], THEY ASSIST WITH PERSONAL CARE AND LIGHT HOUSEWORK PT USES A CANE AND W/C, SHE IS ABLE TO SELF TRANSFER, EXCEPT WHEN GETTING OUT OF BED. HCP ON FILE PCP: KAJAL ALLRED IMM DELIVERED PT AND FAMILY CONCERNED ABOUT PT BEING AMBULATORY AT DC THEY REQUEST PT BE OOB DAILY AND HAVE PT AND OT EVALS THE PT/FAMILY GOAL IS TO TAKE PT HOME WITH [facility] FOR PT AND OT SHE HAS HAD TO GO TO [facility] IN THE PAST, THEY ARE HOPING TO AVOID THIS FAMILY CAN TRANSPORT
--- NOTE | 2025-09-24 15:44 | PC.NURSE ---
repositioned pt and duoderm on coccys redness noted oxygen applied spo2 [id number] pt resting comfortably
--- NOTE | 2025-09-24 18:45 | MHC.SHP ---
Pre-Procedural Eval Section A - 24 Hr Update-Section A only Date of Service: 09/24/25 The patient is an INPATIENT: Yes Changes since office visit: No Cold of Flu in the past 2 weeks, No New Medical Problems, No Changes in Medication and No Patient answered all questions The patient has been examined within 24 hours of the surgical procedure. The History & Physical has been completed within 30 days and I have reviewed it.: Yes Section B - Complete if H&P > 30 days Chief Complaint: near - syncope Details of Present Illness: Cystoscopy, right retrograde, right stent placement Allergies: Allergies Allergy/AdvReac Type Severity Reaction Status Date / Time codeine Allergy Unknown rash Verified 09/22/25 17:31 Penicillins AdvReac Hives Verified 09/22/25 17:31 terbinafine (From Lamisil) AdvReac Hives Verified 09/22/25 17:31 Plan I have reviewed the history and physical and performed a pertinent physical examination on my patient. No changes have occurred unless specified. Time Spent With Patient Time: Total time managing care of this patient today ____ minutes.
--- NOTE | 2025-09-24 19:50 | W.PM.OPN ---
Operative Note Operative Note Date of Service: 09/24/25 Narrative: PreOperative Diagnosis: Obstructing right ureteric stone with elevated white count Post Operative Diagnosis: Obstructing right ureteric stone with proximal pyelonephritis Procedure: Cystoscopy, right retrograde, right stent placement Surgeon: Dr Sonny Teixeira Anesthesia: Sedation Indications for procedure: Obstructing right stone Procedure: After informed consent was verified the patient was brought to the operating room and placed in a supine position. Anesthesia was administered per protocol. The patient was placed in modified dorsal lithotomy position and prepped and draped in a sterile fashion. A safety pause time-out was performed. Laterality of procedure and antibiotics were confirmed, appropriate imaging was available A 22 Norwegian cystoscope was introduced per urethra. No abnormality was noted of urethra or bladder. Both ureteric orifices were seen in a normal position. The right ureter was cannulated with an open ended catheter and a retrograde examination was performed. Possible filling defects seen in proximal ureter . A Sensor guidewire was placed under fluoroscopy and a good coil was seen within the renal pelvis. A 6 Norwegian by 24 double J stent was advanced over the wire and up to the level of the renal pelvis under fluoroscopic and direct visualization. The stent was seen with appropriate coil within the renal pelvis and in the bladder after deployment. The patient tolerated the procedure well and was transferred in a stable condition to the recovery area. Pathology: Drains: This above
[2025-09-25 00:27] VITALS: BP 126/57; PULSE 71; RESP 18; TEMP 36.8; O2SAT 93
[2025-09-25 03:05] VITALS: BP 132/62; PULSE 71; RESP 18; TEMP 36.7; O2SAT 94
[2025-09-25 06:31] LABS: MANUAL DIFF FLAG NO
[2025-09-25 06:40] LABS: Hematocrit 30.8 % (37.0-47.0); Hemoglobin 10.4 g/dl (12.0-16.0); Imm Gran Abs Auto 0.04 X10*3/uL (0.00-0.03); Imm Gran Pct Auto 0.4 % (0.0-0.4); Lymphocytes Absolute Auto 1.8 X10*3/uL (1.2-4.9); Mean Corpuscular HGB Conc 33.8 g/dl (31.0-35.0); Mean Corpuscular Hemoglobin 31.0 pg (27.0-33.0); Mean Corpuscular Volume 91.9 fL (80.0-98.0); NRBC Abs Auto 0.000 X10*3/uL (0.0-0.012); NRBC Pct Auto 0.0 /100WBC (0.0-0.2); Platelet Count 231 X10*3/uL (160-400); Red Blood Count 3.35 X10*6/uL (4.20-5.50); White Blood Count 9.7 X10*3/uL (4.8-10.8)
[2025-09-25 07:02] LABS: Alanine Aminotransferase 19 U/L (0-31); Albumin Level 3.5 g/dL (3.5-5.0); Alkaline Phosphatase 82 U/L (39-117); Anion Gap 12 (12-20); Aspartate Amino Transferase 26 U/L (5-31); Blood Urea Nitrogen 13 mg/dL (9-16); Calcium 8.6 mg/dL (8.4-10.2); Carbon Dioxide 25 mmol/L (22-29); Chloride 107 mmol/L (96-108); Creatinine Clr Calc Pharmacy 59.8; Estimated Glomerular Filt Rate > 60; Magnesium 2.0 mg/dL (1.6-2.6); Potassium 3.2 mmol/L (3.3-5.1); Sodium 141 mmol/L (135-145); Total Protein 6.0 g/dL (6.5-8.0)
[2025-09-25 07:47] VITALS: BP 159/72; PULSE 72; RESP 16; TEMP 36.5; O2SAT 93
--- NOTE | 2025-09-25 08:07 | P.PNUR_ITS ---
Subjective Subjective Date of Service: 09/25/25 Interval history: POD #1 stent Cr down WBC down Improvement Rosenthal out tomorrow 6am Physical Exam 2 Vital Signs: Vital Signs: Last Vital Signs Temp 97.7 F 09/25/25 07:47 Pulse 72 09/25/25 07:47 Resp 16 09/25/25 07:47 BP 159/72 H 09/25/25 07:47 Pulse Ox 93 09/25/25 07:47 O2 Del Method Room Air 09/25/25 07:47 O2 Flow Rate 1 09/24/25 15:46 BMI result Body Mass Index 33.2 Const: General: cooperative, healthy appearing, comfortable and no acute distress Orientation/consciousness: patient oriented x3 HEENT: Face and sinus: Yes normal facial exam Mouth: moist mucous membranes Neck: Neck: Yes normal visual inspection, Yes full ROM and Yes trachea midline Chest: Chest palpation & inspection: normal inspection of the chest Resp: Effort & Inspection: normal respiratory effort, able to speak in complete sentences and no respiratory distress GI: Inspection: Yes normal to inspection Back/Spine/Pelvis: Cervical Spine: normal cervical lordosis Thoracic/Lumbar Spine: thoracic and lumbar spine normal to inspection Skin: General skin exam: no rashes or lesions noted Neuro: General: patient oriented x3, gait normal, tone normal and moves all extremities Extrem: General: Yes normal to inspection and Yes capillary refill normal Urology Results Labs 09/25/25 05:48 09/25/25 05:48 Labs: Laboratory Results - last 24 hr 09/25/25 05:48 WBC 9.7 RBC 3.35 L Hgb 10.4 L Hct 30.8 L MCV 91.9 MCH 31.0 MCHC 33.8 RDW 13.2 Plt Count 231 MPV 10.5 Immature Gran % (Auto) 0.4 Neut % (Auto) 67.9 Lymph % (Auto) 18.3 L [place] % (Auto) 7.4 Eos % (Auto) 5.7 H Baso % (Auto) 0.3 Lymph # (Auto) 1.8 [place] # (Auto) 0.7 Eos # (Auto) 0.6 H Baso # (Auto) 0.0 Abs Immat Gran (auto) 0.04 H Absolute Neuts (auto) 6.6 Absolute Nucleated RBC 0.000 Nucleated RBC % (auto) 0.0 Sodium 141 Potassium 3.2 L Chloride 107 Carbon Dioxide 25 Anion Gap 12 BUN 13 Creatinine 0.71 Estim Creat Clear Calc 59.8 Estimated GFR > 60 Random Glucose 91 Calcium 8.6 Magnesium 2.0 Total Bilirubin 0.7 AST 26 ALT 19 Alkaline Phosphatase 82 Total Protein 6.0 L Albumin 3.5 Progress Note: A&P Assessment and plan (1) Pyelonephritis: Status: Acute (2) Right ureteral calculus: Status: Acute Time Spent With Patient Time: Total time managing care of this patient today ____ minutes. Progress Note: Quality Stroke Does the patient have a stroke diagnosis?: No
--- NOTE | 2025-09-25 08:23 | HO.POSTANES ---
Post Anesthesia Evaluation Post Anesthesia Evaluation Date of Service: 09/25/25 Vital Signs: Vital Signs Temp Pulse Resp BP Pulse Ox O2 Del Method 09/25/25 07:47 97.7 F 72 16 159/72 H 93 Room Air 09/25/25 03:05 98.0 F 71 18 132/62 94 Room Air 09/25/25 00:27 98.3 F 71 18 126/57 L 93 Room Air 09/24/25 20:53 98.2 F 77 18 157/72 H 96 Room Air Anesthesia: TIVA Mental Status: Awake Pain Control: Satisfactory Nausea/Vomiting: None Hydration: Adequate Anesthesia-Related Issues: No Anes. Related Issues
[2025-09-25] MEDS: Sulfamethox/Trimeth 800/160 TABLET 1 TAB PO ×2 (09:10→19:47)
[2025-09-25] MEDS: 0.9 % Sodium Chloride Flush 3 ML SYRINGE IVFLUSH ×3 (09:10→19:52)
--- NOTE | 2025-09-25 12:21 | P.PNIM_ITS ---
Subjective Subjective Date of Service: 09/25/25 Interval History: Patient underwent stent placement Switched antibiotics to p.o. Bactrim which will also help with the hypokalemia Short-term rehab placement likely have to happen tomorrow Review of Systems Review of Systems: Yes all other systems are reviewed and are negative Physical Exam 2 Exam: Exam: General: Awake and alert, oriented primarily to self. In no acute distress Resp: CTA bilaterally CVS: S1, S2, RRR GI: +BS, NT, no distention : Rosenthal draining mild blood-tinged Psych: Pleasantly confused Vital Signs: Vital Signs: Last Vital Signs Temp 97.7 F 09/25/25 07:47 Pulse 72 09/25/25 07:47 Resp 16 09/25/25 07:47 BP 159/72 H 09/25/25 07:47 Pulse Ox 93 09/25/25 07:47 O2 Del Method Room Air 09/25/25 07:47 O2 Flow Rate 1 09/24/25 15:46 BMI result Body Mass Index 33.2 Objective Data Active Medications Acetaminophen (Acetaminophen 325 Mg Tablet) 650 mg PO Q6H PRN PRN Reason: Pain, Mild 1-3,fever,headache Amlodipine Besylate (Amlodipine Besylate 2.5 Mg Tablet) 2.5 mg PO DAILY [facility]; Protocol Last Admin: 09/25/25 09:11 Dose: 2.5 mg Documented By: ARTIS Apixaban (Apixaban 5 Mg Tablet) 5 mg PO BID [facility] Last Admin: 09/25/25 09:11 Dose: 5 mg Documented By: ARTIS Ascorbic Acid (Ascorbic Acid 500 Mg Tablet) 500 mg PO DAILY PRN PRN Reason: cold and flu symptoms Calcium Carbonate (Calcium Carbonate 750 Mg Tab.Chew) 750 mg PO Q4H PRN PRN Reason: Heartburn Gabapentin (Gabapentin 100 Mg Capsule) 200 mg PO BEDTIME MILI Last Admin: 09/24/25 20:56 Dose: 200 mg Documented By: JHONY Losartan Potassium (Losartan Potassium 50 Mg Tablet) 50 mg PO DAILY [facility]; Protocol Last Admin: 09/25/25 09:11 Dose: 50 mg Documented By: ARTIS Magnesium Hydroxide (Milk Of Magnesia 30 Ml Oral.Susp) 30 ml PO DAILY PRN PRN Reason: Constipation Melatonin (Melatonin 3 Mg Tablet) 6 mg PO BEDTIME PRN PRN Reason: Insomnia Metoprolol Tartrate (Metoprolol Tartrate 25 Mg Tablet) 25 mg PO BID [facility]; Protocol Last Admin: 09/25/25 09:11 Dose: 25 mg Documented By: ARTIS Naloxone HCl (Naloxone Hcl 0.4 Mg/Ml Vial) 0.04 mg IVPUSH Q5M PRN PRN Reason: Excessive sedation or RR < 8 Nystatin (Nystatin Powder 15 Gm Bottle) 1 appl TOPICAL TID [facility]; Protocol Last Admin: 09/24/25 20:57 Dose: 1 appl Documented By: JHONY Pantoprazole Sodium (Pantoprazole Sodium 20 Mg Tablet.) 40 mg PO DAILY@0630 [facility] Last Admin: 09/25/25 05:58 Dose: 40 mg Documented By: JHONY Sodium Chloride (0.9 % Sodium Chloride Flush 3 Ml Syringe) 3 ml IVFLUSH QSHIFT [facility] Last Admin: 09/25/25 09:10 Dose: 3 ml Documented By: ARTIS Tamsulosin HCl (Tamsulosin Hcl 0.4 Mg Capsule) 0.4 mg PO DAILY [facility] Last Admin: 09/25/25 09:11 Dose: 0.4 mg Documented By: ARTIS Trimethoprim/Sulfamethoxazole (Sulfamethox/Trimeth 800/160 Tablet) 1 tab PO Q12H [facility] Stop: 09/28/25 08:59 Last Admin: 09/25/25 09:10 Dose: 1 tab Documented By: ARTIS Labs 09/25/25 05:48 09/25/25 05:48 Labs: Laboratory Results - last 24 hr 09/25/25 05:48 MCV 91.9 MCH 31.0 MCHC 33.8 RDW 13.2 Plt Count 231 MPV 10.5 Immature Gran % (Auto) 0.4 Neut % (Auto) 67.9 Lymph % (Auto) 18.3 L [place] % (Auto) 7.4 Eos % (Auto) 5.7 H Baso % (Auto) 0.3 Lymph # (Auto) 1.8 [place] # (Auto) 0.7 Eos # (Auto) 0.6 H Baso # (Auto) 0.0 Abs Immat Gran (auto) 0.04 H Absolute Neuts (auto) 6.6 Absolute Nucleated RBC 0.000 Nucleated RBC % (auto) 0.0 Anion Gap 12 Estim Creat Clear Calc 59.8 Estimated GFR > 60 Random Glucose 91 Calcium 8.6 Magnesium 2.0 Total Bilirubin 0.7 AST 26 ALT 19 Alkaline Phosphatase 82 Total Protein 6.0 L Albumin 3.5 Microbiology Microbiology Results: Microbiology 09/23/25 01:02 Blood Culture - Preliminary Blood - Venous No growth after 48 hours. 09/23/25 01:02 Blood Culture - Preliminary Blood - Venous No growth after 48 hours. 09/22/25 21:47 Urine Culture - Final Urine clean catch - Clean Catch Midstream Assessment and Plan (1) Right ureteral calculus: Status: Acute Plan 85-year-old female with a past medical history of HTN, HLD, [id number] hemiparesis, malignant melanoma, atrial fibrillation-on Eliquis presented to the hospital today with a chief complaint of nausea/vomiting/abdominal pain. Admitted for following: UTI in setting of obstructing right ureteral calculus with mild hydronephrosis status post stent 09/24/2025 Switched IV ceftriaxone to p.o. 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 HX AFib: Continue home Eliquis, metoprolol HTN Continue amlodipine, losartan, metoprolol GERD Continue PPI DVT prophylaxis: Eliquis Code status: Full code Patient we will need 1 more day of hospitalization, short-term rehab recommended by PT which will need prior Auth Quality Stroke Does the patient have a stroke diagnosis?: No VTE Prior VTE?: No VTE Risk Level:: Medical - moderate - high VTE Device Contraindication: Treatment Not Indicated VTE Drug Contraindication: N/A - Med Ordered
[2025-09-25] MEDS: Potassium Chloride ER 20 MEQ TAB.ER.PRT 40 MEQ PO (12:31)
[2025-09-25] MEDS: Milk of Magnesia 30 ML ORAL.SUSP PO (13:55)
--- NOTE | 2025-09-25 14:36 | MHC.CM.PN ---
CM MET WITH PT AND SON AT BEDSIDE TO DISCUSS STR OPTIONS PER P.T. RECOMMENDATIONS. [facility] HAS OFFERED A BED 12/ AFTER 1 PM AND PT/SON ACCEPT BED OFFER. CM WILL FOLLOW FOR ANY CHANGE TO DC PLAN.
[2025-09-25 16:00] VITALS: BP 157/69; PULSE 74; RESP 18; TEMP 36.8; O2SAT 95
[2025-09-25 20:00] VITALS: BP 137/68; PULSE 82; RESP 18; TEMP 37.1; O2SAT 96
[2025-09-26 04:00] VITALS: BP 148/81; PULSE 82; RESP 18; TEMP 36.7; O2SAT 95
[2025-09-26 06:52] LABS: MANUAL DIFF FLAG NO
[2025-09-26 07:02] LABS: Hematocrit 35.2 % (37.0-47.0); Hemoglobin 11.7 g/dl (12.0-16.0); Imm Gran Abs Auto 0.06 X10*3/uL (0.00-0.03); Imm Gran Pct Auto 0.5 % (0.0-0.4); Lymphocytes Absolute Auto 1.7 X10*3/uL (1.2-4.9); Mean Corpuscular HGB Conc 33.2 g/dl (31.0-35.0); Mean Corpuscular Hemoglobin 30.7 pg (27.0-33.0); Mean Corpuscular Volume 92.4 fL (80.0-98.0); NRBC Abs Auto 0.000 X10*3/uL (0.0-0.012); NRBC Pct Auto 0.0 /100WBC (0.0-0.2); Platelet Count 288 X10*3/uL (160-400); Red Blood Count 3.81 X10*6/uL (4.20-5.50); White Blood Count 12.7 X10*3/uL (4.8-10.8)
[2025-09-26 07:03] VITALS: BP 159/75; PULSE 70; RESP 17; TEMP 36.2; O2SAT 94
--- NOTE | 2025-09-26 07:36 | P.PNIM_ITS ---
Subjective Subjective Date of Service: 09/26/25 Physical Exam 2 Vital Signs: Vital Signs: Last Vital Signs Temp 97.1 F 09/26/25 07:03 Pulse 70 09/26/25 07:03 Resp 17 09/26/25 07:03 BP 159/75 H 09/26/25 07:03 Pulse Ox 94 09/26/25 07:03 O2 Del Method Room Air 09/26/25 07:03 O2 Flow Rate 1 09/24/25 15:46 BMI result Body Mass Index 33.2 Objective Data Active Medications Acetaminophen (Acetaminophen 325 Mg Tablet) 650 mg PO Q6H PRN PRN Reason: Pain, Mild 1-3,fever,headache Amlodipine Besylate (Amlodipine Besylate 2.5 Mg Tablet) 2.5 mg PO DAILY [facility]; Protocol Last Admin: 09/25/25 09:11 Dose: 2.5 mg Documented By: ARTIS Apixaban (Apixaban 5 Mg Tablet) 5 mg PO BID [facility] Last Admin: 09/25/25 19:47 Dose: 5 mg Documented By: JHONY Ascorbic Acid (Ascorbic Acid 500 Mg Tablet) 500 mg PO DAILY PRN PRN Reason: cold and flu symptoms Calcium Carbonate (Calcium Carbonate 750 Mg Tab.Chew) 750 mg PO Q4H PRN PRN Reason: Heartburn Gabapentin (Gabapentin 100 Mg Capsule) 200 mg PO BEDTIME [facility] Last Admin: 09/25/25 19:47 Dose: 200 mg Documented By: JHONY Losartan Potassium (Losartan Potassium 50 Mg Tablet) 50 mg PO DAILY [facility]; Protocol Last Admin: 09/25/25 09:11 Dose: 50 mg Documented By: ARTIS Magnesium Hydroxide (Milk Of Magnesia 30 Ml Oral.Susp) 30 ml PO DAILY PRN PRN Reason: Constipation Last Admin: 09/25/25 13:55 Dose: 30 ml Documented By: ARTIS Melatonin (Melatonin 3 Mg Tablet) 6 mg PO BEDTIME PRN PRN Reason: Insomnia Metoprolol Tartrate (Metoprolol Tartrate 25 Mg Tablet) 25 mg PO BID [facility]; Protocol Last Admin: 09/25/25 19:48 Dose: 25 mg Documented By: JHONY Naloxone HCl (Naloxone Hcl 0.4 Mg/Ml Vial) 0.04 mg IVPUSH Q5M PRN PRN Reason: Excessive sedation or RR < 8 Nystatin (Nystatin Powder 15 Gm Bottle) 1 appl TOPICAL TID [facility]; Protocol Last Admin: 09/25/25 19:53 Dose: 1 appl Documented By: JHONY Pantoprazole Sodium (Pantoprazole Sodium 20 Mg Tablet.Dr) 40 mg PO DAILY@0630 [facility] Last Admin: 09/26/25 05:51 Dose: 40 mg Documented By: JORY Sodium Chloride (0.9 % Sodium Chloride Flush 3 Ml Syringe) 3 ml IVFLUSH QSHIFT [facility] Last Admin: 09/25/25 19:52 Dose: 3 ml Documented By: JHONY Tamsulosin HCl (Tamsulosin Hcl 0.4 Mg Capsule) 0.4 mg PO DAILY [facility] Last Admin: 09/25/25 09:11 Dose: 0.4 mg Documented By: ARTIS Trimethoprim/Sulfamethoxazole (Sulfamethox/Trimeth 800/160 Tablet) 1 tab PO Q12H [facility] Stop: 09/28/25 08:59 Last Admin: 09/25/25 19:47 Dose: 1 tab Documented By: JHONY Labs 09/26/25 06:22 09/25/25 05:48 Labs: Laboratory Results - last 24 hr 09/26/25 06:22 MCV 92.4 MCH 30.7 MCHC 33.2 RDW 13.2 Plt Count 288 MPV 10.5 Immature Gran % (Auto) 0.5 H Neut % (Auto) 74.6 H Lymph % (Auto) 13.3 L [place] % (Auto) 7.2 Eos % (Auto) 3.8 Baso % (Auto) 0.6 Lymph # (Auto) 1.7 [place] # (Auto) 0.9 Eos # (Auto) 0.5 H Baso # (Auto) 0.1 Abs Immat Gran (auto) 0.06 H Absolute Neuts (auto) 9.5 H Absolute Nucleated RBC 0.000 Nucleated RBC % (auto) 0.0 Microbiology Microbiology Results: Microbiology 09/23/25 01:02 Blood Culture - Preliminary Blood - Venous No growth after 48 hours. 09/23/25 01:02 Blood Culture - Preliminary Blood - Venous No growth after 48 hours. Quality Stroke Does the patient have a stroke diagnosis?: No VTE Prior VTE?: No VTE Risk Level:: Medical - moderate - high VTE Device Contraindication: Treatment Not Indicated VTE Drug Contraindication: N/A - Med Ordered
[2025-09-26 07:51] LABS: Alanine Aminotransferase 22 U/L (0-31); Albumin Level 4.0 g/dL (3.5-5.0); Alkaline Phosphatase 91 U/L (39-117); Aspartate Amino Transferase 24 U/L (5-31); Blood Urea Nitrogen 18 mg/dL (9-16); Calcium 9.1 mg/dL (8.4-10.2); Creatinine Clr Calc Pharmacy 48.8; Estimated Glomerular Filt Rate > 60; Magnesium 2.4 mg/dL (1.6-2.6); Total Protein 6.8 g/dL (6.5-8.0)
[2025-09-26 07:57] LABS: Anion Gap 14 (12-20); Carbon Dioxide 22 mmol/L (22-29); Chloride 108 mmol/L (96-108); Potassium 4.0 mmol/L (3.3-5.1); Sodium 140 mmol/L (135-145)
[2025-09-26] MEDS: Sulfamethox/Trimeth 800/160 TABLET 1 TAB PO (09:43)
[2025-09-26] MEDS: 0.9 % Sodium Chloride Flush 3 ML SYRINGE IVFLUSH (09:44)
--- NOTE | 2025-09-26 11:03 | PM.DS ---
DS: Providers Provider Date of Service: 09/26/25 Date of admission: 09/23/25 00:19 Date of discharge: 09/26/25 Primary care physician: Unknown Physician Consults: 09/23/25 00:19 Consult to Urology Routine Consulting Provider: [facility] Reason for consultation: UPJ stone 09/24/25 09:11 Consult to Wound Care Routine Consulting Provider: [facility] Reason for consultation: redness under bilateral breast,under abdominal folds,perineal area DS: Diagnosis Discharge Diagnosis (1) Right ureteral calculus: Status: Acute DS: Summary Hospital Course Hospital Course: Per H&P: Chief Complaint: Abdominal pain 85-year-old female with a past medical history of HTN, HLD, [id number] hemiparesis, malignant melanoma, atrial fibrillation-on Eliquis presented to the hospital today with a chief complaint of nausea/vomiting/abdominal pain. Patient reports over the past day she has been having nausea vomiting and abdominal discomfort. Denies any fevers and chills. Mentioned she has baseline wheelchair-bound. Today she felt like she is going to lose consciousness but did not faint. Denies any chest pain or palpitations. Mentioned she has baseline right-sided weakness-unchanged. Review of all other systems is negative except mentioned above ER course: Per ER team, patient on exam has baseline right-sided weakness: Blood pressure was stable; CT abdomen pelvis showed UPJ stone with mild hydronephrosis. UA negative. Hospital course: This is an 85-year-old female with a history of hypertension, hyperlipidemia, prior CVA with chronic right-sided hemiparesis, malignant melanoma, and atrial fibrillation on , who presented with nausea, vomiting, and abdominal pain. She was found to have a UTI in the setting of an obstructing right ureteral calculus with mild hydronephrosis, for which a ureteral stent was placed on 09/24/2025. Her antibiotic regimen was transitioned from IV ceftriaxone to oral Bactrim based on prior culture sensitivities, as cultures from this admission were noncontributory. She is also receiving Flomax and gentle IV fluids. The patient experienced an episode of near-syncope on admission associated with vomiting, likely related to her acute illness, deconditioning, and possible sepsis. Physical therapy has evaluated her and recommended short-term rehabilitation, which is expected to be arranged within the next one to two days. Her chronic right-sided weakness is at baseline and attributed to her prior CVA. For her atrial fibrillation, she will continue her home Eliquis and metoprolol. Her hypertension regimen, including amlodipine, losartan, and metoprolol, will also be continued. She will remain on her home medications for hyperlipidemia and her PPI for GERD. Eliquis will serve as her DVT prophylaxis during this admission. Her code status is full code. The plan is to continue current management, arrange for short-term rehab placement, and ensure outpatient urology follow-up for stent management. Time spent discussing smoking cessation with patient: more than 10 minutes Status at Discharge Functional status at discharge: wheelchair bound Overall status at discharge: patient is progressing back to baseline Time Attestation Discharge Coordination Time (in mins): 65 Quality: Safe Use of Opioids Does Pt have an Active Cancer Diagnosis on the Problem List?: No Quality: Stroke Does the patient have a stroke diagnosis?: No Physical Exam Exam: Exam: General: Awake and alert, oriented primarily to self. In no acute distress Resp: CTA bilaterally CVS: S1, S2, RRR GI: +BS, NT, no distention : Rosenthal draining mild blood-tinged Psych: Pleasantly confused Vital Signs: Vital Signs: Last Vital Signs Temp 97.1 F 09/26/25 07:03 Pulse 70 09/26/25 07:03 Resp 17 09/26/25 07:03 BP 159/75 H 09/26/25 07:03 Pulse Ox 94 09/26/25 07:03 O2 Del Method Room Air 09/26/25 07:03 O2 Flow Rate 1 09/24/25 15:46 BMI result Body Mass Index 33.2 DS: Data Data Completed and Pending Labs on day of discharge: Laboratory Results - last 24 hr 09/26/25 06:22 WBC 12.7 H RBC 3.81 L Hgb 11.7 L Hct 35.2 L MCV 92.4 MCH 30.7 MCHC 33.2 RDW 13.2 Plt Count 288 MPV 10.5 Immature Gran % (Auto) 0.5 H Neut % (Auto) 74.6 H Lymph % (Auto) 13.3 L [place] % (Auto) 7.2 Eos % (Auto) 3.8 Baso % (Auto) 0.6 Lymph # (Auto) 1.7 [place] # (Auto) 0.9 Eos # (Auto) 0.5 H Baso # (Auto) 0.1 Abs Immat Gran (auto) 0.06 H Absolute Neuts (auto) 9.5 H Absolute Nucleated RBC 0.000 Nucleated RBC % (auto) 0.0 Sodium 140 Potassium 4.0 D Chloride 108 Carbon Dioxide 22 Anion Gap 14 BUN 18 H Creatinine 0.87 Estim Creat Clear Calc 48.8 Estimated GFR > 60 Random Glucose 109 Calcium 9.1 Magnesium 2.4 Total Bilirubin 0.5 AST 24 ALT 22 Alkaline Phosphatase 91 Total Protein 6.8 Albumin 4.0 Preliminary micro results at discharge 09/23/25 01:02 Blood Culture - Preliminary Blood - Venous No growth after 48 hours. 09/23/25 01:02 Blood Culture - Preliminary Blood - Venous No growth after 48 hours. Discharge Plan Discharge Anticipated Discharge Date/Time: 09/26/25 09:22 Patient Disposition: er [facility] Discharge Diagnosis: UTI in setting of obstructing right ureteral calculus with mild hydronephrosis status post stent 09/24/2025 Referrals: Sonny Teixeira MD [Physician, Urology] - 1 Week Tasha Rueda MD [Physician, Wound Care] - 1 Week Markus Stevens RN [Emergency Nurse, Medical] - 1 Week Physician,Ariel Rodriguez [Primary Care Provider, Medical] - 1 Week Discharge Medications: New sulfamethoxazole-trimethoprim 800-160 mg Tablet 1 tab PO Q12H 7 Days Qty: 14 0RF tamsulosin 0.4 mg Capsule 0.4 mg PO DAILY 30 Days Qty: 30 3RF nystatin [Nyamyc] 100,000 unit/gram Powder 1 appl topical TID 30 Days Qty: 30 0RF Protocol: Apply to: Apply to: affected areas Continued gabapentin 100 mg capsule 200 mg PO BEDTIME 30 Days Qty: 60 6RF (DME) Ultra-Light Rollator Misc See Rx Instructions .Route Qty: 1 0RF Rx Instructions: As directed metoprolol tartrate 50 mg tablet 25 mg PO BID acetaminophen 500 mg Tablet 1,000 mg PO TID PRN (Reason: Pain) amlodipine 2.5 mg tablet 2.5 mg PO DAILY cranberry 450 mg Tablet 450 mg PO BID Rx Instructions: administer with meals zinc acetate 25 mg (zinc) Capsule 25 mg PO DAILY PRN (Reason: Cold and Flu Symptoms) ascorbic acid (vitamin C) [Vitamin C] 500 mg Tablet 500 mg PO DAILY PRN (Reason: cold and flu symptoms) pantoprazole 40 mg tablet,delayed release (DR/EC) 40 mg PO DAILY@0630 losartan 50 mg tablet 50 mg PO DAILY Eliquis 5 mg tablet 5 mg PO BID melatonin 3 mg tablet 6 mg PO BEDTIME Held nitrofurantoin monohyd/m-cryst 100 mg capsule 1 cap PO BID Hold Instructions: Resume on 10/10/25. Please see your PCP prior to resuming this medication Discharge Orders: Discharge Order (Routine); Ordered 09/26/25 Ordered By: Anna Wood Diet: Low salt diet Activity on Discharge: Use cane or walker Stand Alone Forms: Patient Portal Discharge page Print Language: Fijian Care Plan Goals: Discharge Instructions Diagnosis: Right ureteral stone (kidney stone) with urinary tract infection (UTI), status post ureteral stent placement Mild hydronephrosis (swelling of the kidney due to urine backup) History of stroke with right-sided weakness Atrial fibrillation Hypertension, hyperlipidemia, GERD Medications: Continue all home medications as previously prescribed, including Eliquis, metoprolol, amlodipine, losartan, and PPI. Take Bactrim (antibiotic) as prescribed to complete the course for UTI. Continue Flomax as directed to help with urinary flow. If you have any questions about your medications, or if you experience side effects such as rash, difficulty breathing, severe diarrhea, or unusual bleeding, contact your physician immediately. Urinary Care: You have a ureteral stent in place to help drain urine from your kidney. A Rosenthal catheter is currently in place for bladder drainage. Do not attempt to remove the catheter yourself. Keep the catheter and surrounding area clean and dry. Empty the catheter bag regularly and note the color and amount of urine. If you notice blood in your urine, decreased urine output, fever, chills, or increasing pain, notify your healthcare provider promptly. Follow-Up: Outpatient urology follow-up is essential for stent management and to plan for voiding trials (testing your ability to urinate without the catheter). Attend all scheduled appointments with your primary care provider and specialists. Short-term rehabilitation has been recommended to help with mobility and strength; please follow instructions from the rehab facility. Activity: Gradually increase your activity as tolerated. Use assistance as needed for walking to prevent falls, especially given your history of right-sided weakness and recent near-syncope. Follow physical therapy recommendations. Diet: Resume your regular diet unless otherwise instructed. Stay well hydrated unless you have been given fluid restrictions. When to Seek Medical Attention: Fever over 100.4?F (38?C), chills, or signs of infection Severe abdominal, flank, or back pain Nausea or vomiting that prevents you from keeping down fluids or medications Chest pain, palpitations, shortness of breath, or new neurological symptoms Decreased urine output, blood in urine, or inability to urinate Signs of bleeding (unusual bruising, black stools, coughing up blood) Other Instructions: Continue to take Eliquis as prescribed for atrial fibrillation; do not stop this medication without medical advice. Maintain blood pressure and cholesterol medications as directed. Use your PPI for GERD as prescribed. Code Status: You are currently listed as Full Code. If you have any questions or concerns, please contact your healthcare provider . In case of emergency, call 911 or go to the nearest emergency department. Health Concerns: See above Plan of Treatment: See above Assessment: See above
--- NOTE | 2025-09-26 11:43 | MHC.CM.PN ---
DP: PT HAS BEEN MEDICALLY CLEARED FOR DC TO STR AT [facility](PT'S FIRST CHOICE). BLS TRANSPORT BOOKED FOR 3 PM [facility]IA [facility]. SON UPDATED.
[2025-09-26 15:09] VITALS: BP 144/64; PULSE 76; RESP 16; TEMP 36.6; O2SAT 98
== END 2025-09-26 15:30 | disposition skilled nursing facility (03) | DRG 660 ==
LOC: HO.ED 09-23 00:08 → HO.EDOVER 09-23 00:26 → HO.IMC 09-23 10:15 → HO.S3 09-23 11:20
PROVIDERS: Student in an Organized Health Care Education/Training Program; Urology; Admitting Provider Hospitalist; Emergency Provider Emergency Medicine Emergency Medical Services; Visit Provider Student in an Organized Health Care Education/Training Program
PROC: 0T768DZ Dilation of Right Ureter with Intraluminal Device, Via Natural or Artificial Opening Endoscopic (ICD-10-PCS; principal; 2025-09-24 17:30)
DX: N13.6 Pyonephrosis (principal); I69.351 Hemiplegia and hemiparesis following cerebral infarction affecting right dominant side; K21.9 Gastro-esophageal reflux disease without esophagitis; E87.6 Hypokalemia; I48.91 Unspecified atrial fibrillation; I10 Essential (primary) hypertension; Z20.822 Contact with and (suspected) exposure to COVID-19; Z85.820 Personal history of malignant melanoma of skin; Z99.3 Dependence on wheelchair; Z79.01 Long term (current) use of anticoagulants; Z79.899 Other long term (current) drug therapy
CPT/HCPCS: 36415; 70450; 71045; 74177; 80048; 80053; 80076; 81001; 83605; 83690; 83735; 84443; 84484; 85025; 85610; 87040; 87086; 87633; 93005; 97162; 99285; C1758; C1769; C2617; J0456; J0696; J1956; J2003; J2405; J2704; J7120; Q9967

== ENCOUNTER → 2025-09-22 17:54 | Outpatient (BNV) | payer MEDICARE, MEDICAID, SELFPAY | PROVIDERS: Admitting Provider Hospitalist; Emergency Provider Emergency Medicine Emergency Medical Services; Visit Provider Internal Medicine | DX: I48.91 Unspecified atrial fibrillation (principal) | CPT/HCPCS: 93010 ==

== ENCOUNTER → 2025-09-22 17:55 | Outpatient (BNV) | payer MEDICARE, MEDICAID, SELFPAY | PROVIDERS: Emergency Provider Emergency Medicine Emergency Medical Services; Visit Provider Student in an Organized Health Care Education/Training Program | DX: N13.2 Hydronephrosis with renal and ureteral calculous obstruction (principal); R55 Syncope and collapse | CPT/HCPCS: 70450; 74177 ==

== ENCOUNTER → 2025-09-23 00:19 | Outpatient (BNV) | payer MEDICARE, MEDICAID, SELFPAY | PROVIDERS: Admitting Provider Hospitalist; Emergency Provider Emergency Medicine Emergency Medical Services; Visit Provider Urology | DX: N20.1 Calculus of ureter (principal); N23 Unspecified renal colic; N13.30 Unspecified hydronephrosis; N39.0 Urinary tract infection, site not specified | CPT/HCPCS: 99222; 99232 ==

== ENCOUNTER → 2025-09-23 00:19 | Outpatient (BNV) | payer MEDICARE, MEDICAID, SELFPAY | PROVIDERS: Admitting Provider Hospitalist; Emergency Provider Emergency Medicine Emergency Medical Services; Visit Provider Student in an Organized Health Care Education/Training Program | DX: N20.1 Calculus of ureter (principal) | CPT/HCPCS: 99233 ==

== ENCOUNTER 2025-09-27 06:23 | Outpatient (REF) | payer SELFPAY ==
--- OUTSIDE RECORDS SUMMARY | 2024-07-17 08:00 | XMS_ITS ---
Author Organization [facility] Address [address] [place] [phone] Care Team Providers Care Financial Analyst Intern Name Role Phone Jonna Childress Primary Care Provider Unava ilable Mari Chowdhury Unavailable [phone] Mcelroy Encounters Encounter Location Date Provider Diagnosis [address] [address] 07/17/2024 Mari Chowdhury Plan Of Treatment Next Appt Details Provider Name:Mari Chowdhury , 12/10/2025 11:15:00 AM, [address] [place] [address], [phone], Progress Notes * Cande MARXDOB:[birth year] (85 yo F)Acc No.[id number]:07/17/2024 Progress Note Patient: Cande FRANCISCO Provider: Kamari Chowdhury DPM :1940 A ge:83 Y S ex:Female Date:07/17/2024 Address:[address] [place] [phone] Pcp:Jonna Childress Subjective: * Chief Complaints: * [address] Mcelroy. * Medical History: Objective: * Vitals: Assessment: Plan: * Treatment: * Images: * The named appointment provid er may or may not be the originator of this progress note, and it is not deemed complete until electronically signed by the appointment provider. Sign off status: Pending * Provider: Kamari Chowdhury DPM Date: 0 07/17/2024 Generated for Autumn Mancini on: 11/28/2024 06:27 AM EST
--- OUTSIDE RECORDS SUMMARY | 2024-08-08 15:47 | XMS_ITS | Encounter Summary ---
Author Organization [facility] Address [address] [place] [address] Care Team Providers Care Petrol Tanker Driver Name Role Phone Jonna Nieto MD Primary Care Prov ider Encounter Details Date Type Department Care Team (Late st Contact Info) Description 08/08/2024 4:47 PM EDT Hospital Encounter TH HISTORIC ENCOUNTERS EASTERN CONVERSION ONLY Jennifer Willingham PA [address] [place] [address] Social History Tobacco Use Types Packs/Day Years Used Date Smoking Tobacco: Never Smokeless Tobacco: Never Alcohol Use Standard Drinks/Week Comments Yes 0 (1 standard drink = 0.6 oz pur e alcohol) Housing Instability Answer Date Recorde d Are you worried that in the next 2 months you may not have stable housing? No 07/24/2025 Food Access & Nutrition Answer Date Rec orded Do you have access to a vari ety of food including fruits and vegetables? Yes 07/24/2025 Health Literacy Answer Date Recorded How often do you need to hav e someone help you when you read instructions, pamphlets, or other written material from your doctor or pharmacy? Always 07/24/2025 Caregiver: How often do you need to have someone help you when you read instructions, pamphlets, or other written material from your doctor or pharmacy? Not on file 07/24/2025 Financial Risk Answer Date Recorded How hard is it for you to pa y for the very basics like food, housing, medical care, and air conditioning / heating? Not very hard 07/24/2025 Transportation Answer Date Recorded Has the lack of transportati on kept you from meetings, work, or from getting things needed for daily living? No Has the lack of transportati on kept you from medical appointments or from getting medications? No 07/24/2025 Social Isolation Answer Date Recorded How often do you feel lonely or isolated from th ose around you? Never 07/24/2025 Food Risk Answer Date Recorded Within the past 12 months we worried whether our food would run out before we got money to buy more. Never true 07/24/2025 Within the past 12 months th e food we bought just didn't last and we didn't have money to get more. Never true 07/24/2025 Dependent Care Answer Date Recorded Do you need help finding or paying for care for your loved ones. For example, child protective services social worker or elderly care for an older adult? No 07/24/2025 Education Answer Date Recorded Do you think completing more education or training, like finishing a GED, going to college, or learning a trade, would be helpful for you? No 07/24/2025 Employment and Income Answer Date Recor ded During the last four weeks, have you been actively looking for work? No 07/24/2025 Living Situation Answer Date Recorded What is your living situation? Unrecognized valu e 07/24/2025 Comments No Sex and Gender Information Value Date Recorded Sex Assigned at Not on file Legal Sex Female 1:21 AM EST Gender Identity Not on file Sexual Orientation Not on file documented as of this encounter Plan of Treatment Upcoming Encounters Date Type Department Care Team (Late st Contact Info) Description 01/25/2026 11:15 AM EDT Office Visit Adult Medicine [address] [phone] Jonna Nieto MD [address] [place] [address] 02/13/2026 9:20 AM EDT Appointment Radiology Department - [address] [phone] 09/17/2026 1:00 PM EST Office Visit Pulmonology - [address] [place] [address] Rosario Uribe, ZULEIKA [address] [place] [address] documented as of this encounter Visit Diagnoses Not on filedocumented in this encounter Care Teams Petrol Tanker Driver Relationship Specialty Start Date End Date Jonna Nieto MD [address] [place] [phone] PCP - General Internal Medicine 07/13/22 documented as of this encounter
--- OUTSIDE RECORDS SUMMARY | 2025-09-27 06:27 | XMS_ITS | Patient Health Record ---
[facility] Address [address] [place] [address] Care Team Providers Care Bull Fiddle Player Name Role Phone Jonna Childress Primary Care Provider Unamarcia ilable Black, Mari Unavailable [phone] Allergies Allergen (clinical drug ingredient) Drug/Non Drug [...] atherosclerosis of arteries of lower limbs (disorder) ([id number] ) Atherosclerosis of artery of both lower extremities (I70.203) Active confirmed Q7(A), Q8(2B), Q9(1B,2 C) Vital Signs Blood pressure diastolic 65 mm Hg 08/13/2025 Height 5 ft 3 in in 08/13/2025 Blood pressure systolic 130 mm Hg 08/13/2025 Weight 163 lbs 08/13/2025 BMI 28.87 kg/m2 08/13/2025 Procedures Procedure Date Ordered Date Performed Result Body Sit e 92450-OXHPAAS NAIL, 6 OR MORE 01/04/2025 N/A 36297-VMQTEUO NAIL, 6 OR MORE 05/10/2025 N/A 29555-VKEI SKIN LESIONS, 2 TO 4 05/10/2025 N/A 56764-JGOAJBA NAIL, 6 OR MORE 08/13/2025 N/A 46075-Qvzlhnoe Plate 08/13/2025 N/A 65917-RTQR SKIN LESIONS, 2 TO 4 08/13/2025 N/A Encounters Encounter Location Date Provider Diagnosis [address] [address] 01/04/2025 Mari Black Tinea unguium B35.1 ; Neuropathy G62.9 ; Pain in right toe(s) M79.674 ; Pain in left toe(s) M79.675 ; Neuritis M79.2 ; 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 ; Pain in left foot M79.672 and Pain in right foot M79.[address] [facility] [address] 05/10/2025 Mari Black Tinea unguium B35.1 ; Pain in right toe(s) M79.674 ; Pain in left toe(s) M79.675 and Atherosclerosis of artery of both lower extremities I70.[address] [address] 08/13/2025 Mari Black Tinea unguium B35.1 ; [...] Treatment Pending Test Test Name Order Date 07969-ZQYYCRU NAIL, 6 OR MORE 08/12/2011 06293-VRVLGCF NAIL, 6 OR MORE 11/11/2011 66939-IGCSOWW NAIL, 6 OR MORE 02/10/2012 84540-NLKYPQN NAIL, 6 OR MORE 05/16/2012 63563-CVOEJBE NAIL, 6 OR MORE 08/17/2012 31460-IKVEDBR NAIL, 6 OR MORE 11/16/2012 91091-DSRSDFX NAIL, 6 OR MORE 02/13/2013 35174-XANFIYQ NAIL, 6 OR MORE 05/17/2013 34478-FETIFPI NAIL, 6 OR MORE 11/13/2013 84207-OCYCWYG NAIL, 6 OR MORE 02/14/2014 60184-NAWVUYA NAIL, 6 OR MORE 05/21/2014 73175-YTHAMGL NAIL, 6 OR MORE 08/09/2013 46643-LBEYJXQ NAIL, 6 OR MORE 08/27/2014 34067-BENWKUY NAIL, 6 OR MORE 11/21/2014 61641-PXDTGIB NAIL, 6 OR MORE 02/20/2015 77839-FIITYTE NAIL, 6 OR MORE 05/22/2015 90188-ZAMCJCC NAIL, 6 OR MORE 08/26/2015 39022-TGTTVGG NAIL, 6 OR MORE 11/25/2015 89016-IJPPKXB NAIL, 6 OR MORE 02/24/2016 54819-FCRFGOI NAIL, 6 OR MORE 05/25/2016 17199-GMXKHSW NAIL, 6 OR MORE 08/24/2016 03345-GILDHUM NAIL, 6 OR MORE 11/23/2016 47965-ARJVBPG NAIL, 6 OR MORE 02/22/2017 98082-ABSPPUI NAIL, 6 OR MORE 05/27/2017 92359-SGHIYBR NAIL, 6 OR MORE 08/26/2017 98150-XLHOURL NAIL, 6 OR MORE 11/25/2017 24830-IJAJHBD NAIL, 6 OR MORE 02/28/2018 06910-NRMHKCI NAIL, 6 OR MORE 05/30/2018 08149-SYMMRKK NAIL, 6 OR MORE 08/29/2018 88821-BSBDWNW NAIL, 6 OR MORE 11/28/2018 69814-OYHPUDF NAIL, 6 OR MORE 02/27/2019 57822-ZREPAFF NAIL, 6 OR MORE 05/29/2019 52395-IVQTGNW NAIL, 6 OR MORE 09/25/2019 05086-BNUTZEO NAIL, 6 OR MORE 12/25/2019 40434-UPRVZTN NAIL, 6 OR MORE 04/01/2020 65872-GBYMNYJ NAIL, 6 OR MORE 07/08/2020 26378-YDIPHXO NAIL, 6 OR MORE 10/07/2020 41085-ULHODRA NAIL, 6 OR MORE 02/03/2021 57621-NATEZZB NAIL, 6 OR MORE 05/05/2021 50455-YKEEWKE NAIL, 6 OR MORE 11/24/2021 49117-LKDYSJF NAIL, 6 OR MORE 03/02/2022 86558-MVROFQJ NAIL, 6 OR MORE 08/11/2021 77298-NAUVXWI NAIL, 6 OR MORE 06/04/2022 18887-JMIKFHW NAIL, 6 OR MORE 09/03/2022 10643-EXPODCB NAIL, 6 OR MORE 12/10/2022 83246-CMUCVGF NAIL, 6 OR MORE 03/08/2023 26866-RJYNLKS NAIL, 6 OR MORE 06/07/2023 47412-TPZTTGX NAIL, 6 OR MORE 12/27/2023 92353-HXPCBNE NAIL, 6 OR MORE 04/06/2024 39663-SGYXOTI NAIL, 6 OR MORE 09/07/2024 25322-RVVFRWY NAIL, 6 OR MORE 01/04/2025 28943-KXBVLRQ NAIL, 6 OR MORE 05/10/2025 54461-RTKSYVN NAIL, 6 OR MORE 08/13/2025 28641-Tqxz Destruction, -11/24/2021 39237-Pwix Destruction, 10-3106/07/2023 91180-Arsk Destruction, 10-3103/08/2023 97119-Mrju Destruction, 10-3112/10/2022 68895-Mgye Destruction, 10-3109/03/2022 72495-Dbax Destruction, 10-3103/02/2022 61007-Qife Destruction, 10-3106/04/2022 32272-Hhrj Destruction, 10-3108/11/2021 05079-Tnjb Destruction, 10-3105/05/2021 60454-Uoil Destruction, 10-3102/03/2021 74450-Nngc Destruction, 10-3107/08/2020 53499-Dfbx Destruction, 10-3110/07/2020 34863-Afzl Destruction, 10-3104/01/2020 40410-Djpp Destruction, 10-3109/25/2019 00302-Ielz Destruction, 10-3108/26/2017 59986-Xigr Destruction, 10-3105/29/2019 14817-Tddc Destruction, 10-3102/27/2019 34173-Rdot Destruction, 10-3111/28/2018 60492-Ufrb Destruction, 10-3108/29/2018 97465-Ezje Destruction, 10-3105/30/2018 23162-Lzns Destruction, 10-3102/28/2018 11503-Vxpa Destruction, 10-3111/25/2017 88505-Ryfu Destruction, 10-3105/27/2017 77829-Mfjf Destruction, 10-3111/23/2016 66993-Tpvi Destruction, 10-3108/24/2016 56035-Nqvw Destruction, 10-3105/25/2016 44856-Zhmd Destruction, 10-3102/24/2016 57950-Cwwt Destruction, 10-3111/25/2015 06558-Ewix Destruction, 10-3102/13/2013 94680-Yvlu Destruction, 10-3105/17/2013 39687-Cznj Destruction, 10-3111/16/2012 23544-Bxdm Destruction, 10-3108/17/2012 44469-Ajpc Destruction, 10-3105/16/2012 04433-Lryj Destruction, 10-3102/10/2012 94468-Gezq Destruction, 10-3111/11/2011 30760-Ozrw Destruction, 10-3108/12/2011 36466-Zargbcmy Plate 05/16/2012 22558-Vowemxme Plate 05/17/2013 45931-Pibwvelo Plate 02/13/2013 76120-Lfdyiuwc Plate 02/20/2015 99378-Ejtbfjmu Plate 08/27/2014 93136-Cvmigcma Plate 05/21/2014 34797-Wqlzhziy Plate 02/14/2014 45991-Nssawkmk Plate 05/22/2015 72242-Enrociju Plate 11/23/2016 35736-Ebvbaiul Plate 08/26/2017 57343-Vxedwxka Plate 05/29/2019 65619-Jgwkhaxi Plate 07/08/2020 87888-Biyqwlkj Plate 05/05/2021 25082-Zxvatcoz Plate 12/27/2023 11443-Pdwzgpta Plate 09/07/2024 03683-Fplukmpm Plate 08/13/2025 43273-Wsbrqwdb Plate Each Additional 15237-Fpxggteu Plate Each Additional 94556-Whijnscd Plate Each Additional 01/2014 33031-Xyujbzly Plate Each Additional 03/2015 87926- Debride <25 sq cm 08/09/2013 05542- Debride <25 sq cm 05/21/2014 69725- Debride <25 sq cm 12/25/2019 29891 I&D ABSCESS- SIMPLE,SINGLE 022 88283 I&D ABSCESS- SIMPLE,SINGLE 015 36747 I&D ABSCESS- SIMPLE,SINGLE 015 70326-WBIO SKIN LESIONS, 2 TO 4 08/13/20 70909-NOEI SKIN LESIONS, 2 TO 4 05/10/20 Next Appt Details Provider Name:Mari Chowdhury , 12/10/2025 11:15:00 AM, [address] [place], [address], Insurance Providers Payer Name Payer Address Payer Phone Subscriber Number Group Number Insured Name Patient Relationship to Insured Coverage Start Date Coverage End Date Medicare [facility] [employer] [address] [place] [address] [phone] [id number] Cande Marx Self - patient is the insured [employer] [address] [place] [address] [id number] Cande Marx Self - patient is [...] of neck 08/2024 Hospitalization History Reason Date(Month/Year) [facility] [facility] [place] [facility] [place] [place] In[place]06[place]23 [facility] [place] [facility] [place]/09[place]23[place]12[place]16/23 [facility] [place] [place] right knee pain couldn't walk [facility] ER- Diarrhea 06/2018
[2025-09-27 06:28] LABS: MANUAL DIFF FLAG NO
--- OUTSIDE RECORDS SUMMARY | 2025-09-27 06:28 | XMS_ITS | Clinical Summary ---
Author Organization [facility] Address [address] [facility] [address] [place] [address] Phone Care Team Providers Care Form Setter Steel Forms Name Role Phone Jonna Nieto MD Primary [...] B [place] PART A & [facility] & B [facility] PART [facility] & B [facility] MED[facility] PART [facility] & B [facility] Care Teams Form Setter Steel Forms Relationship Specialty Start Date End Date Jonna Nieto MD [address] [place] [address] PCP - General Internal Medicine 03/27/25 Additional Source Comments The information contained in this document represents components of the legal health record. It is not the complete legal health record[facility]
--- OUTSIDE RECORDS SUMMARY | 2025-09-27 06:28 | XMS_ITS | Clinical Summary ---
Author Organization [address] [facility] Address [address] [place] [address] Phone Care Team Providers Care Slip Cover Estimator Name Role Phone Jonna Nieto MD Primary [...] EVERY DAY 90 tablet 08/31/20 25 Active pantoprazole (PROTONIX) 40 mg EC tablet TAKE 1 TABLET BY MOUTH EVERY DAY 90 tablet 02/06/20 25 025 Discontinued nitrofurantoin, macrocrystal-mo nohydrate, (MACROBID) 100 mg capsule Take 1 capsule (100 mg total) by mouth 2 (two) times a day for 5 days. 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 2024 Unspecified mood [...] Encounters Date Type Department Care Team Description 09/23/2025 Results Follow-Up Adult [address] [phone] Lucas Rahman MD 09/21/2025 9:30 AM EST Office Visit [address] [phone] Lucas Rahman MD Urinary tract infection without hematuria, site unspecified (Primary Dx) 09/17/2025 1:50 PM EST Office Visit Pulmonology - [address] [place] [phone] Rosario Uribe NP Lung nodules (Primary Dx); Recurrent infections; Longstanding persistent atrial fibrillation (CMS/HCC V24, CMS/HCC V28); Obesity (BMI 30.0-34.9) 07/24/2025 11:30 AM EDT Office Visit Adult [address] [phone] Jonna Nieto MD Encounter for general adult medical examination without abnormal findings (Primary Dx); Atrial fibrillation, unspecified type (CMS/HCC V24, CMS/HCC V28); Benign essential hypertension; Hypercholesterolemia ; Postmenopausal; Advance care planning 07/19/2025 Results Follow-Up Adult Medicine [facility] [place] [address] [place], [place] [phone] Jonna Nieto MD 07/16/2025 12:32 PM EDT - 07/16/2025 11:59 PM EDT Hospital Encounter CT Scan - [place] [address] [place], [place] [phone] Lung nodules Discharge Disposition: Home or Self Care 07/10/2025 1:00 PM EDT Office Visit Pulmonology - [place] [address] [place] [phone] Rosario Uribe NP Lung nodules (Primary Dx); [...] cyst rwemoved long time ago SALPINGOOPHORECTOMY PROCEDURE: ND LAPAROSCOPY W/RMVL ADNEXAL STRUCTURES; COMMENT: cyst removed APPENDECTOMY 1965 PROCEDURE: ND APPENDECTOMY CHOLECYSTECTOMY 1968 PROCEDURE: ND LAPAROSCOPY SURG CHOLECYSTECTOMY FINE NEEDLE ASPIRATION PROCEDURE: FINE NDLE ASPRTN W/IMAGING GUIDANCE; COMMENT: lt. breast bx-benign BREAST SURGERY PROCEDURE: ND UNLISTED PROCEDURE BREAST; [...] for your loved ones. For example, child & adolescent psychiatrist or elderly care for an older adult? [...] EDT Office Visit Adult Medicine [facility] - [address] [phone] Jonna Nieto MD [address] [place], [place] 02/13/2026 9:20 AM EDT Appointment Radiology Department - [address] [phone] 09/17/2026 1:00 PM EST Office Visit Pulmonology - [address] [place] [phone] Rosario Uribe, ZULEIKA [address] [place] [address] Health Maintenance Due Date Last Done Comments Zoster Vaccines (1 of 2) 1959 RSV Immunization Adult Patients (1 - 1-dose 75+ series) 2015 Osteoporosis Screening (Bone Density Screening) 09/26/2022 COVID-19 Vaccine (2024- season) 2025 01/14/2021, 12/24/2020, 12/03/2020 Hypertension/CHF/CAD Annual [...] and culture (09/21/2025 10:16 AM EST) Specific [place] Urine 1.011 1.003 - 1.030 LAB URINALYSIS - AUTOMATED METHOD 09/21/2025 4:18 PM [facility] pH, Urine 6.5 5.0 - 8.0 pH LAB URINALYSIS - AUTOMATED METHOD 09/21/2025 4:18 PM [facility] Leukocytes, Urine Large(A) Negative LAB URINALYSIS - AUTOMATED METHOD 09/21/2025 4:18 PM [facility] Nitrite, Urine Negative Negative LAB URINALYSIS - AUTOMATED METHOD 09/21/2025 4:18 PM [facility] Protein, Urine 30(A) <=Trace mg/dL LAB URINALYSIS - AUTOMATED METHOD 09/21/2025 4:18 PM [facility] Glucose, Urine Negative Negative mg/dL LAB URINALYSIS - AUTOMATED METHOD 09/21/2025 4:18 PM [facility] Ketones, Urine Negative Negative mg/dL LAB URINALYSIS - AUTOMATED METHOD 09/21/2025 4:18 PM [facility] Urobilinogen, Urine 0.2 0.2 - 1.0 mg/dL LAB URINALYSIS - AUTOMATED METHOD 09/21/2025 4:18 PM [facility] Bilirubin, Urine Negative Negative LAB URINALYSIS - AUTOMATED METHOD 09/21/2025 4:18 PM [facility] Blood, Urine Large(A) Negative LAB URINALYSIS - AUTOMATED METHOD 09/21/2025 4:18 PM [facility] RBC, Urine >100(H) 0 - 4 /HPF 09/21/2025 4:18 PM [facility] WBC, Urine >100(H) 0 - 4 /HPF 09/21/2025 4:18 PM [facility] Squamous Epithelial, Urine 10 0 - 60 /LPF 09/21/2025 4:18 PM [facility] Bacteria, Urine Many(A) Negative /HPF 09/21/2025 4:18 PM [facility] Hyaline Casts, Urine 0 0 - 3 /LPF 09/21/2025 4:18 PM [facility] Urine Urine specimen obtained by clean catch procedure / Unknown Non-blood Collection / Unknown 09/21/2025 10:16 AM EST 09/21/2025 10:16 AM EST us Lucas Rahman MD LAB URINE ORDERABLES Final Result [facility] [address] [place] [address], * [place] urine culture tube (09/21/2025 10:16 AM EST) Extra Tube Hold for add-ons. 09/21/2025 3:01 PM [facility] Comment:Auto resulted. Urine Urine specimen obtained by clean catch procedure / Unknown Non-blood Collection / Unknown 09/21/2025 10:16 AM EST 09/21/2025 10:16 AM EST Lucas Rahman MD LAB URINE ORDERABLES Final Result [facility] [address] [place] [address], [place] [phone] * (ABNORMAL) Culture urine (09/21/2025 10:16 AM EST) Culture, Urine >=100,000 CFU/mL Escherichia coli(A) MONI 09/23/2025 9:38 AM EST [facility] Comment: This is an edited result. Previous organism was Gram negative bacilli on 09/22/2025 at 0832 EST. Urine Urine specimen obtained by clean catch procedure / Unknown Non-blood Collection / Unknown 09/21/2025 10:16 AM EST 09/21/2025 4:18 PM EST Narrative [facility] - 09/23/2025 9:38 AM EST Additional colony types present in insignificant amounts. Organism Antibiotic Method Susceptibility Escherichia coli Amoxicillin/Clavulanate MONI 16 ug/ml: Intermediate Escherichia coli Ampicillin/Sulbactam MONI 4 ug/ml: Susceptible Escherichia coli Piperacillin/Tazobactam MONI <=4 ug/ml: Susceptible Escherichia coli Cefazolin (Urine) MONI <=1 ug/ml: Susceptible Escherichia coli Cefoxitin MONI <=4 [...] Escherichia coli Trimethoprim/Sulfamethoxazole MONI <=20 ug/ml: Susceptible Lucas Rahman MD LAB MICROBIOLOGY - GENERAL ORDERABLES Final Result [facility] [address] [place] [address], [place] [phone] * (ABNORMAL) POC Urine Auto W/O Micro (09/21/2025 9:46 AM EST) [facility] Leukocytes UA POC Positive(A) Negative Nitrite UA POC Positive(A) Negative Urobilinogen UA POC Negative Negative Protein UA POC Positive(A) Negative PH UA POC 6.5 5.0 - 9.0 Blood UA POC Positive(A) Negative, Trace Specific [place] UA POC 1.020 1.001 - 1.035 Ketones UA POC 1+(A) Negative Bilirubin UA POC Positive(A) Negative Glucose UA POC Normal Normal, Trace Color UA POC Red Urine Urine specimen obtained by clean catch procedure / Unknown 09/21/2025 9:46 AM EST Lucas Rahman MD POINT OF CARE TEST ENTER/ED IT ORDERABLES Final Result * (ABNORMAL) CBC auto differential (07/19/2025 11:28 AM EDT) [facility] WBC 10.1 4.8 - 10.8 K/mcL LAB HEMETOLOGY METHOD 07/19/2025 12:21 PM EDT [facility] RBC 4.50 3.80 - 4.80 M/mcL LAB HEMETOLOGY METHOD 07/19/2025 12:21 PM EDT [facility] Hemoglobin 13.7 11.5 - 16.0 g/dL LAB HEMETOLOGY METHOD 07/19/2025 12:21 PM EDT [facility] Hematocrit 42.6 35.0 - 47.0 % LAB HEMETOLOGY METHOD 07/19/2025 12:21 PM [facility] MCV 95.1 79.0 - 98.0 FL LAB HEMETOLOGY METHOD 07/19/2025 12:21 PM EDT [facility] MCH 30.6 27.0 - 32.0 pcg LAB HEMETOLOGY METHOD 07/19/2025 12:21 PM [facility] MCHC 32.2 32.0 - 37.0 g/dL LAB HEMETOLOGY METHOD 07/19/2025 12:21 PM [facility] RDW 13.9 11.0 - 15.0 % LAB HEMETOLOGY METHOD 07/19/2025 12:21 PM [facility] Platelets 277 130 - 400 K/mcL LAB HEMETOLOGY METHOD 07/19/2025 12:21 PM [facility] MPV 10.8 7.0 - 11.0 FL LAB HEMETOLOGY METHOD 07/19/2025 12:21 PM [facility] NRBC 0.0 <1.0 % LAB HEMETOLOGY METHOD 07/19/2025 12:21 PM [facility] NRBC Absolute 0.00 <0.10 K/mcL LAB HEMETOLOGY METHOD 07/19/2025 12:21 PM [facility] Neutrophils Relative 65.5 % LAB HEMETOLOGY METHOD 07/19/2025 12:21 PM [facility] Lymphocytes Relative 22.1 % LAB HEMETOLOGY METHOD 07/19/2025 12:21 PM [facility] Monocytes Relative 7.0 % LAB HEMETOLOGY METHOD 07/19/2025 12:21 PM [facility] Eosinophils Relative 3.8 % LAB HEMETOLOGY METHOD 07/19/2025 12:21 PM [facility] Basophils Relative 1.0 % LAB HEMETOLOGY METHOD 07/19/2025 12:21 PM [facility] Immature Granulocytes Relative 0.6 % LAB HEMETOLOGY METHOD 07/19/2025 12:21 PM [facility] Neutrophils Absolute 6.59 1.50 - 7.00 K/mcL LAB HEMETOLOGY METHOD 07/19/2025 12:21 PM EDT [facility] Lymphocytes Absolute 2.22 1.00 - 5.00 K/mcL LAB HEMETOLOGY METHOD 07/19/2025 12:21 PM EDT [facility] Monocytes Absolute 0.70 0.20 - 1.00 K/mcL LAB HEMETOLOGY METHOD 07/19/2025 12:21 PM EDT [facility] Eosinophils Absolute 0.38 0.00 - 0.50 K/mcL LAB HEMETOLOGY METHOD 07/19/2025 12:21 PM EDT [facility] Basophils Absolute 0.10 0.00 - 0.20 K/mcL LAB HEMETOLOGY METHOD 07/19/2025 12:21 PM EDT [facility] Immature Granulocytes Absolute 0.06(H) 0.00 - 0.03 K/mcL LAB HEMETOLOGY METHOD 07/19/2025 12:21 PM EDT [facility] Blood Venous blood specimen / Unknown Venipuncture / Unknown 07/19/2025 11:28 AM EDT 07/19/2025 11:28 AM EDT us Jonna Nieto MD LAB BLOOD ORDERABL ES Final Result [facility] [address] [place] [address], * CT Chest wo Contrast (07/16/2025 12:54 [...] Signed Date: 07/16/2025 16:56 ET Workstation ID: [id number] Transcribed By: Self Edit Transcribed Date: 07/16/2025 16:37 ET Narrative 07/16/2025 4:[address] CHEST HISTORY: Lung nodule, > 8mm Patient had CT at [facility] in 11/2024 which showed lung nodules with [...] nodule, > 8mm Patient had CT at [facility] in 11/2024 which showed lung nodules with [...] Signed Date: 07/16/2025 16:56 ET Workstation ID: [id number] Transcribed By: Self Edit Transcribed Date: 07/16/2025 16:37 ET Rosario Uribe NP IMG CT PROCEDURES Final Result * Basic metabolic panel (02/21/2025 9:50 AM EDT) Sodium 138 133 - 145 mmol/L LAB CHEMISTRY METHOD 02/21/2025 1:16 PM [facility] Potassium 3.9 3.5 - 5.5 mmol/L LAB CHEMISTRY METHOD 02/21/2025 1:16 PM [facility] Chloride 106 96 - 110 mmol/L LAB CHEMISTRY METHOD 02/21/2025 1:16 PM [facility] CO2 25 21 - 32 mmol/L LAB CHEMISTRY METHOD 02/21/2025 1:16 PM [facility] Anion Gap 7 3 - 11 LAB CHEMISTRY METHOD 02/21/2025 1:16 PM [facility] Glucose 93 70 - 100 mg/dL LAB CHEMISTRY METHOD 02/21/2025 1:16 PM [facility] BUN 24 5 - 25 mg/dL LAB CHEMISTRY METHOD 02/21/2025 1:16 PM [facility] Creatinine 0.92 0.50 - 1.10 mg/dL LAB CHEMISTRY METHOD 02/21/2025 1:16 PM [facility] eGFR 62 >=60 mL/min/1. 73m2 LAB CHEMISTRY METHOD 02/21/2025 1:16 PM [facility] Comment:Calculation based on the Chronic Kidney Disease Epidemiology Collaboration (CKD-EPI) equation refit without adjustment for race. BUN/Creatinine Ratio 26.1 LAB CHEMISTRY METHOD 02/21/2025 1:16 PM [facility] Calcium 9.6 8.5 - 10.5 mg/dL LAB CHEMISTRY METHOD 02/21/2025 1:16 PM EDT [facility] Blood Venous blood specimen / Unknown Venipuncture / Unknown 02/21/2025 9:50 AM EDT 02/21/2025 9:50 AM EDT us Katina MC LAB BLOOD ORDERABLES Final Resul t Performing Organization Address City/[facility]/ZIP Co de Phone Number [facility] [address] [place] [address], [place] [phone] * (ABNORMAL) Lipid panel with reflex to [...] PM EST [facility] Chol/HDL Ratio 4.6(H) 0.0 - 4.4 LAB CHEMISTRY METHOD 09/19/2024 2:37 PM EST [facility] Blood Venous blood specimen / Unknown Venipuncture / Unknown 09/19/2024 11:59 AM EST 09/19/2024 11:59 AM EST us Jennifer MC LAB BLOOD ORDERABLES Final Resu lt [facility] [address] [place] [address], * Depression Screening (07/19/2024) [facility] Signature Depression Screening Abstracted us Historical Provider MD HEALTH MAINTENANCE Final Result from Last 3 Months or Most Recently Relevant to Health Maintenance Insurance MEDICARE [facility] [place]ICAID [place] Advance Directives Documents on File Type Date Recorded Patient Manager Licensing Expl anation Advance Directives and Living Will 07/24/2025 12:12 PM HEALTH CARE PROXY - DALJIT MARX Care Teams Slip Cover Estimator Relationship Specialty Start Date End Date Jonna Nieto MD [address] [place] [address] PCP - General Internal Medicine 07/13/22
--- OUTSIDE RECORDS SUMMARY | 2025-09-27 06:28 | XMS_ITS | Encounter Summary ---
Author Organization [facility] Address [address] [place] [address] Care Team Providers Care Pneumatic Tester Name Role Phone Jonna Nieto MD Primary Care Prov ider Encounter Details Date Type Department Care Team (Late st Contact Info) Description 09/23/2025 Results Follow-Up Adult Medicine [address] [phone] Lucas Rahman MD [address] [place] [address] Social History Tobacco Use Types Packs/Day Years [...] for your loved ones. For example, child advocate or elderly care for an older adult? [...] 11:15 AM EDT Office Visit Adult Medicine [address] [phone] Jonna Nieto MD [address] [place] [phone] 02/13/2026 9:20 AM EDT Appointment Radiology Department - [address] [phone] 09/17/2026 1:00 PM EST Office Visit Pulmonology - [address] [place] [phone] Rosaroi Uribe, ZULEIKA [address] [place] [phone] documented as of this encounter Visit Diagnoses Not on filedocumented in this encounter Additional Health Concerns Assessment Noted Time PHQ-9 Depression Total Score: 5 07/24/20 25 11:40 AM EDT A fall risk assessment has been complete d for the patient 07/24/2025 11:37 AM EDT documented as of this encounter Care Teams Pneumatic Tester Relationship Specialty Start Date End Date Jonna Nieto MD [address] [place] [phone] PCP - General Internal Medicine 07/13/22 documented as of this encounter
[2025-09-27 06:33] LABS: Hematocrit 33.7 % (37.0-47.0); Hemoglobin 11.5 g/dl (12.0-16.0); Imm Gran Abs Auto 0.09 X10*3/uL (0.00-0.03); Imm Gran Pct Auto 0.9 % (0.0-0.4); Lymphocytes Absolute Auto 2.3 X10*3/uL (1.2-4.9); Mean Corpuscular HGB Conc 34.1 g/dl (31.0-35.0); Mean Corpuscular Hemoglobin 31.3 pg (27.0-33.0); Mean Corpuscular Volume 91.6 fL (80.0-98.0); NRBC Abs Auto 0.000 X10*3/uL (0.0-0.012); NRBC Pct Auto 0.0 /100WBC (0.0-0.2); Platelet Count 274 X10*3/uL (160-400); Red Blood Count 3.68 X10*6/uL (4.20-5.50); White Blood Count 9.8 X10*3/uL (4.8-10.8)
[2025-09-27 06:55] LABS: Alanine Aminotransferase 18 U/L (0-31); Albumin Level 3.5 g/dL (3.5-5.0); Alkaline Phosphatase 76 U/L (39-117); Anion Gap 12 (12-20); Aspartate Amino Transferase 19 U/L (5-31); Blood Urea Nitrogen 22 mg/dL (9-16); Calcium 8.9 mg/dL (8.4-10.2); Carbon Dioxide 22 mmol/L (22-29); Chloride 108 mmol/L (96-108); Estimated Glomerular Filt Rate 44; Potassium 3.9 mmol/L (3.3-5.1); Sodium 138 mmol/L (135-145); Total Protein 6.0 g/dL (6.5-8.0)
== END 2025-09-27 06:24 ==
LOC: HO.MMNH1L 06:23
PROVIDERS: Visit Provider Physician Assistant Medical
DX: Z13.1 Encounter for screening for diabetes mellitus (principal); N39.0 Urinary tract infection, site not specified
CPT/HCPCS: 36415; 80053; 83036; 85025

== ENCOUNTER 2025-10-01 09:14 | Outpatient (REF) | payer SELFPAY ==
[2025-10-01 07:55] LABS: MANUAL DIFF FLAG NO
[2025-10-01 08:07] LABS: Hematocrit 33.3 % (37.0-47.0); Hemoglobin 10.8 g/dl (12.0-16.0); Imm Gran Abs Auto 0.06 X10*3/uL (0.00-0.03); Imm Gran Pct Auto 0.7 % (0.0-0.4); Lymphocytes Absolute Auto 1.9 X10*3/uL (1.2-4.9); Mean Corpuscular HGB Conc 32.4 g/dl (31.0-35.0); Mean Corpuscular Hemoglobin 30.5 pg (27.0-33.0); Mean Corpuscular Volume 94.1 fL (80.0-98.0); NRBC Abs Auto 0.000 X10*3/uL (0.0-0.012); NRBC Pct Auto 0.0 /100WBC (0.0-0.2); Platelet Count 299 X10*3/uL (160-400); Red Blood Count 3.54 X10*6/uL (4.20-5.50); White Blood Count 8.3 X10*3/uL (4.8-10.8)
[2025-10-01 08:43] LABS: Anion Gap 12 (12-20); Blood Urea Nitrogen 27 mg/dL (9-16); Calcium 8.9 mg/dL (8.4-10.2); Carbon Dioxide 19 mmol/L (22-29); Chloride 112 mmol/L (96-108); Estimated Glomerular Filt Rate 44; Potassium 4.0 mmol/L (3.3-5.1); Sodium 139 mmol/L (135-145)
== END 2025-10-01 09:15 | disposition home or self-care (01) ==
LOC: HO.MMNH1L 09:14
PROVIDERS: Visit Provider Physician Assistant Medical
DX: N39.0 Urinary tract infection, site not specified (principal)
CPT/HCPCS: 36415; 80048; 85025